=== PATIENT | female | born 1945 | race Caucasian/White ===

== ENCOUNTER → 2016-06-22 | Outpatient (CLI) | payer MEDICARE ==
[~2016-06-22] MED LIST: ACT/35 PO; ACT35 PO; ALBUAER2 INH; AMLO-114 PO; AMOX875T PO; ASPI325T4 PO; ATRIN INH; ATRIN6 NAE; BNTHP PO; CALC600T9 PO; FLNIN NAE; FLUT0.15 NAE; GLUCTAB7 PO; GUAI400T44 PO; IPRA0.03 NAE; MONT1TAB3 PO; MULT-506 PO; NXM/40 PO; PENT100C6 PO; RANITIDINE PO; SNG10 PO; TYLER650 PO; [UNRECOGNIZED DRUG - CODE] PO
[2016-06-22 15:44] LABS: MEAN CELL VOLUME 89.6 fL (80-100); MEAN CORPUSCULAR HEMOGLOBIN 30.5 pg (25-34); MEAN CORPUSCULAR HGB CONC 34.1 g/dl (32-36); MEAN PLATELET VOLUME 10.8 fL (7.4-10.4); PLATELET COUNT 269 K/uL (130-400); RED BLOOD COUNT 4.13 M/uL (4.2-5.4); WHITE BLOOD COUNT 8.34 K/uL (4.8-10.8)
[2016-06-22 16:45] LABS: ALKALINE PHOSPHATASE 56 U/L (45-117); ALT/SGPT 24 U/L (12-78); AST/SGOT 15 U/L (15-37); BLOOD UREA NITROGEN 13 mg/dl (7-18); BUN/CREATININE RATIO 20.1 (10-20); CARBON DIOXIDE 28 mmol/L (21-32); CHLORIDE 98 mmol/L (98-107); CREATININE 0.65 mg/dl (0.60-1.20); GLUCOSE 105 mg/dl (70-99); POTASSIUM 4.1 mmol/L (3.5-5.1); SODIUM 132 mmol/L (136-145)
[2016-06-22 16:46] LABS: URINE APPEARANCE CLEAR (CLEAR); URINE BILIRUBIN NEG (NEG); URINE COLOR YELLOW; URINE NITRITE NEG (NEG); URINE PH 6.5 (4.5-7.5); UROBILINOGEN NEG (NEG)
[2016-06-22 16:47] LABS: ALB/GLOB RATIO 1.2 (0.9-2); MANUAL MICROSCOPIC REQUIRED? NO; REVIEW REQ? NO
[2016-06-22 17:01] LABS: URINE PROTIEN/CREAT RATIO 0.1 (0-0.2); URINE TOTAL PROTEIN 5.3 mg/dl (0-11.9)
== END | disposition home or self-care (01) ==
LOC: C.LAB1850 14:50
PROVIDERS: ATTEND Internal Medicine Nephrology
DX: E87.1 Hypo-osmolality and hyponatremia (principal)

== ENCOUNTER → 2016-11-02 | Outpatient (CLI) | payer MEDICARE ==
[~2016-11-02] MED LIST changes: -ACT/35 PO; -AMOX875T PO; -ATRIN INH; -CALC600T9 PO; -FLUT0.15 NAE; -GLUCTAB7 PO; -GUAI400T44 PO; -IPRA0.03 NAE; -MONT1TAB3 PO; -RANITIDINE PO; -TYLER650 PO
[2016-11-02 16:38] LABS: MEAN CELL VOLUME 86.7 fL (80-100); MEAN CORPUSCULAR HEMOGLOBIN 29.5 pg (25-34); MEAN CORPUSCULAR HGB CONC 34.1 g/dl (32-36); PLATELET COUNT 278 K/uL (130-400); RED BLOOD COUNT 4.27 M/uL (4.2-5.4)
[2016-11-02 16:48] LABS: URINE APPEARANCE CLEAR (CLEAR); URINE BILIRUBIN NEG (NEG); URINE COLOR DK YELLOW; URINE EPITHELIAL CELL AUTO 20-30 /lpf (0-5); URINE NITRITE NEG (NEG); URINE SPECIFIC GRAVITY 1.017 (1.000-1.030); UROBILINOGEN NEG (NEG)
[2016-11-02 16:57] LABS: MANUAL MICROSCOPIC REQUIRED? NO; REVIEW REQ? NO
[2016-11-02 17:06] LABS: BLOOD UREA NITROGEN 16 mg/dl (7-18); CALCIUM 9.1 mg/dl (8.5-10.1); CARBON DIOXIDE 27 mmol/L (21-32); CHLORIDE 97 mmol/L (98-107); CREATININE 0.65 mg/dl (0.60-1.20); GLUCOSE 109 mg/dl (70-99); SODIUM 132 mmol/L (136-145)
--- NOTE | 2016-11-11 09:34 | CODING QUERY MEDICAL NECESSITY ---
CQSUPPORTING DIAGNOSIS NEEDED A supporting diagnosis is required for the test/procedure performed on this patient in order for us to be reimbursed by the patient's insurance. Please provide a supporting diagnosis for the following test/procedure listed below next to the test name along with your signature. *If there is no additional diagnosis for this patient that would support the following test/procedure please document that below next to the test/procedure. Test(s)/Procedure(s) that require a supporting diagnosis: DOS 11/02/16 VITAMIN D TEST Provider Signature: Date: Thank you Carey Jarvis Health Information Management Once completed, please kindly fax back to [phone] For questions please call [phone]
== END | disposition home or self-care (01) ==
LOC: C.LAB1850 15:04
PROVIDERS: ATTEND Internal Medicine Nephrology
DX: I10 Essential (primary) hypertension (principal); E87.1 Hypo-osmolality and hyponatremia

== ENCOUNTER → 2016-11-18 | Outpatient (CLI) | payer MEDICARE | END | disposition home or self-care (01) | LOC: C.PAPS 11:29 | PROVIDERS: ATTEND Family Medicine | DX: Z12.72 Encounter for screening for malignant neoplasm of vagina (principal) ==

== ENCOUNTER → 2016-11-19 | Outpatient (CLI) | payer MEDICARE ==
--- NOTE | 2016-11-19 13:40 | MAMMOGRAPHY REPORT ---
BILATERAL DIGITAL SCREENING MAMMOGRAM WITH CAD: 11/19/2016 CLINICAL HISTORY: Routine screening. Patient has no complaints. TECHNIQUE: Current study was also evaluated with a Computer Aided Detection (CAD) system. Bilateral CC and MLO views were obtained. COMPARISON: Comparison is made to exams dated: 09/12/2015 mammogram, 09/04/2014 mammogram, 09/03/2013 jenniffer mogram, 08/31/2012 mammogram, 08/31/2011 mammogram, and 08/27/2010 mammogram - [facility]. BREAST COMPOSITION: The tissue of both breasts is almost entirely fatty. FINDINGS: No suspicious masses, calcifications, or areas of architectural distortion are noted in ei ther breast. There has been no significant interval change compared to prior exams. IMPRESSION: ACR BI-RADS CATEGORY 1: NEGATIVE There is no mammographic evidence of malignancy. A 1 year screening mammogram is recommended. The pa tient will receive written notification of the results. Approximately 10% of breast cancers are not detected with mammography. A negative mammographic report should not delay biopsy if a clinically suggestive mass is present. Babita Hoover M.D. /:11/19/2016 12:12:18 Information And Referral Director: Lissett Lopez, [facility] letter sent: Normal 1/2 BI-RADS Code: ACR BI-RADS Category 1: Negative
== END | disposition home or self-care (01) ==
LOC: C.MAMM 11:33
PROVIDERS: ATTEND Family Medicine
DX: Z12.31 Encounter for screening mammogram for malignant neoplasm of breast (principal)

== ENCOUNTER → 2016-12-14 | Outpatient (CLI) | payer MEDICARE | END | disposition home or self-care (01) | LOC: C.MAMM 13:27 | PROVIDERS: ATTEND Family Medicine | DX: M85.852 Other specified disorders of bone density and structure, left thigh (principal); M85.851 Other specified disorders of bone density and structure, right thigh; M85.832 Other specified disorders of bone density and structure, left forearm ==

== ENCOUNTER → 2017-02-10 | Outpatient (CLI) | payer MEDICARE ==
[~2017-02-10] MED LIST changes: +ACT/35 PO; -ACT35 PO; -ALBUAER2 INH; +AMOX875T PO; +ATRIN INH; -ATRIN6 NAE; -BNTHP PO; +CALC600T9 PO; -FLNIN NAE; +FLUT0.15 NAE; +GLUCTAB7 PO; +GUAI400T44 PO; +IPRA0.03 NAE; +MONT1TAB3 PO; +RANITIDINE PO; -SNG10 PO; +TYLER650 PO; -[UNRECOGNIZED DRUG - CODE] PO
[2017-02-10 13:38] LABS: BASO ABS # 0.07 K/uL (0-0.2); COMPLETE YES; EOS % 2.6 %; HEMATOCRIT 37.5 % (37-47); IG% 0.3 %; LYMPH ABS # 2.42 K/uL (1.2-3.4); MEAN CELL VOLUME 87.4 fL (80-100); MEAN CORPUSCULAR HEMOGLOBIN 29.4 pg (25-34); MEAN CORPUSCULAR HGB CONC 33.6 g/dl (32-36); MONO % 13.3 %; NEUT % 47.8 %; PLATELET COUNT 276 K/uL (130-400); RED BLOOD COUNT 4.29 M/uL (4.2-5.4); WHITE BLOOD COUNT 6.92 K/uL (4.8-10.8)
[2017-02-10 13:39] LABS: PROTHROMBIN TIME (PATIENT) 10.4 SECONDS (9.0-12.0)
== END | disposition home or self-care (01) ==
LOC: C.LABSPEC 13:07
PROVIDERS: ATTEND Family Medicine
DX: Z01.812 Encounter for preprocedural laboratory examination (principal); R23.3 Spontaneous ecchymoses

== ENCOUNTER → 2017-02-15 | Day surgery (SDC) | payer MEDICARE ==
[2017-01-17 11:08] VITALS: Ht 165.1 cm; Wt 68.6 kg
[~2017-02-15] VITALS: Ht 165.1 cm; Wt 68.6 kg
[~2017-02-15] MED LIST changes: +500ML BSS 0.3ML EPI 1:1000PF IRRIG ONE; +ACETAMINOPHEN 325 MG TAB PO PRN; +AMVISC PLUS 0.8ML SYRINGE INT OCU ONE; +ATROPINE SULFATE 0.1 MG/ML 5ML SYR IV PRN; +BSS FLUSH ONE; +EpHEDrine SULFATE INJ 50 MG/ML AMP IV PRN; +EpINEphrine INJ 1MG/ML AMP 1 MG/ML AMP ONE; +LACTATED RINGER'S 1000ML 500 ML IV SCH; +LIDOCAINE 3.5% OPH GEL PER APPLICATION CHARGE ONE; +LIDOCAINE HCL 1% MPF 2 ML VIAL ONE; +MIDAZOLAM HCL 1 MG/ML 2ML VIAL ONE; +OCUCOAT 1 ML SOLN IO ONE; +PHENYLEPHRINE HCL 10% OP SOLN PER DROP CHARGE OPR SCH; +POVIDONE-IODINE OP SOLN 30 ML BTL ONE; +PROPARACAINE 0.5% OP SOLN PER DROP CHARGE OPR SCH; +TOBRAMYCIN/DEXAMETHASONE OPH OINT PER APPLN CHARGE ONE
[2017-02-15] MEDS: PHENYLEPHRINE HCL 2.5% OP SOLN PER DROP CHARGE OPR SCH ×2 (09:25→09:30)
[2017-02-15] MEDS: TROPICAMIDE 1% OP SOLN PER DROP CHARGE OPR SCH ×2 (09:26→09:31)
[2017-02-15] MEDS: CYCLOPENTOLATE HCL 1% OP SOLN PER DROP CHARGE OPR SCH ×2 (09:27→09:32)
[2017-02-15] MEDS: KETOROLAC 0.5% OP SOLN PER DROP CHARGE OPR SCH ×2 (09:28→09:33)
[2017-02-15] MEDS: GATIFLOXACIN OP SOLN PER DROP CHARGE OPR SCH ×2 (09:29→09:41)
--- NOTE | 2017-02-15 10:04 | History & Physical Bridge - SC ---
H&P Re-Evaluation Bridge Note: I have examined the patient, reviewed the History & Physical and in the interval since the performance of the History & Physical I have noted the following changes of clinical significance: Diagnosis: Right Cataract Procedure: Right Cataract Removal with Lens Implant No changes noted
--- NOTE | 2017-02-15 10:38 | Discharge Instructions-SurgCtr ---
Discharge Instructions Date of Service Feb 15, 2017. Visit Reason for Visit: Right Cataract Discharge Discharge Diagnosis / Problem: cataract Discharge Goals Goal(s): Improve function Activity Recommendations Activity Limitations: per Instructions/Follow-up section Anesthesia . Post Anesthesia Instructions: If you have had General Anesthesia or IV Sedation: * Do not drive today. * Resume driving when surgeon permits. * Do not make important decisions or sign legal documents today. * Call surgeon for: 1. Temperature elevations greater than 101 degrees F. 2. Uncontrollable pain. 3. Excessive bleeding. 4. Persistent nausea and vomiting. 5. Medication intolerance (nausea, vomiting or rash). * For nausea and vomiting use only clear liquids such as: tea, soda, bouillon until nausea subsides, then gradually increase diet as tolerated. * If you have any concerns or questions, call your surgeon's office. If physician is unavailable and it is an emergency, call 911 or go to the nearest emergency room. . Diet Recommendations Home Diet: resume previous diet Procedures Procedures Performed: Right Cataract Phacoemulsification With Intraocular Lens Implant Pending Studies Studies pending at discharge: no Medical Emergencies . Who to Call and When: Medical Emergencies: If at any time you feel your situation is an emergency, please call 911 immediately. . Non-Emergent Contact Non-Emergency issues call your: [employer] . . "Provider Documentation" section prepared by Alex Ponce. .
--- NOTE | 2017-02-15 10:39 | [facility] Operative Report ---
Operative Report Date of Service Feb 15, 2017. Operative Report 1. PREOPERATIVE DIAGNOSIS: Cataract of the right eye. 2. POSTOPERATIVE DIAGNOSIS: Same. 3. PROCEDURE: Phacoemulsification with intraocular lens implantation of the right eye. SURGEON: Dr. Alex Ponce. ANESTHESIA: Topical Lidocaine gel, 1% Non- Preserved intracameral Lidocaine, and monitored intravenous sedation. INDICATIONS FOR THE PROCEDURE: The patient is a 71 - year-old female with a history of cataract of the right eye causing significant visual impairment. The details of the proposed procedure were explained to the patient who asked appropriate questions and following discussion of all risks, benefits and alternatives agreed to have the procedure done. 4. OPERATION AND FINDINGS: DESCRIPTION OF PROCEDURE: After informed consent was obtained, the patient was brought to the Operating Room at the [facility]. The patient was placed in a supine position and then the right eye was prepped and draped in the usual sterile fashion for intraocular surgery. A drop of topical Lidocaine gel was placed in the operative eye. A wire lid speculum was then placed in the fornices. A corneal paracentesis was then created temporally. The Non-Preserved Lidocaine was then instilled into the anterior chamber. The anterior chamber was then pressurized with viscoelastic. A 2.0 mm clear corneal incision was then created temporally. A cystotome was inserted into the anterior chamber and used to create a tear in the anterior lens capsule. This capsular tear was then used to create a small flap and the flap was dragged in a counterclockwise direction in order to create a continuous curvilinear capsulorrhexis. Hydrodissection was accomplished with balanced salt solution. Phacoemulsification of the lens nucleus was then performed in a standard [id number]-rve-[id number] technique. The phaco time was 16 seconds with an average power of 14 %. The remaining cortical material was removed using irrigation aspiration. The capsular bag was then filled with viscoelastic. A Florentin SN60WF +21.0 diopters lens was then loaded into the injector and injected into the capsular bag. The remaining viscoelastic was removed with the irrigation aspiration handpiece. The wound was hydrated and then checked and found to be watertight. The intraocular pressure was checked and found to be adequate. The wire lid speculum was removed and the patient's face was cleaned and dried. TobraDex ointment was placed in the inferior fornix. The patient was discharged to the Recovery Room having tolerated the procedure well. There were no complications. The patient will be seen tomorrow in the office for follow-up. I attest to the content of the Intraoperative Record and any orders documented therein. Any exceptions are noted below.
[2017-02-15 10:41] VITALS: TEMP 36.7
--- NOTE | 2017-02-15 10:57 | Anesthesia Progress Nt - [facility] ---
Anesthesia Post Op Note Date & Time Feb 15, 2017 at 10:57 Vital Signs Pain Intensity: 0 Vital Signs Past 12 Hours Date Time Temp Pulse Resp B/P (MAP) Pulse Ox O2 Delivery O2 Flow Rate FiO2 02/15/17 10:41 36.7 79 16 127/79 (95) 97 Room Air 02/15/17 09:19 36.8 81 16 108/72 (84) 97 Room Air Notes Mental Status: alert / awake / arousable, participated in evaluation Pt Amnestic to Procedure: Yes Nausea / Vomiting: adequately controlled Pain: adequately controlled Airway Patency, RR, SpO2: stable & adequate BP & HR: stable & adequate Hydration State: stable & adequate Anesthetic Complications: no major complications apparent
[2017-02-15 11:07] VITALS: BP 121/76; PULSE 79; O2SAT 99
== END | disposition home or self-care (01) ==
LOC: X.SURG 09:00
PROVIDERS: ATTEND Ophthalmology
DX: H26.9 Unspecified cataract (principal); J45.909 Unspecified asthma, uncomplicated; I10 Essential (primary) hypertension; D68.51 Activated protein C resistance; N30.10 Interstitial cystitis (chronic) without hematuria; M81.0 Age-related osteoporosis without current pathological fracture; K58.9 Irritable bowel syndrome, unspecified; Z86.718 Personal history of other venous thrombosis and embolism

== ENCOUNTER → 2017-03-08 | Day surgery (SDC) | payer MEDICARE ==
[2017-02-23 15:04] VITALS: Ht 165.1 cm; Wt 68.6 kg
[~2017-03-08] VITALS: Ht 165.1 cm; Wt 68.6 kg
[~2017-03-08] MED LIST changes: -AMLO-114 PO; +AMLO10TA3 PO; -AMOX875T PO; +ASTN; -OCUCOAT 1 ML SOLN IO ONE; +ONDANSETRON INJ 2 MG/ML 2 ML VIAL IV PRN; -PHENYLEPHRINE HCL 10% OP SOLN PER DROP CHARGE OPR SCH; +PROPARACAINE 0.5% OP SOLN PER DROP CHARGE OPL SCH; -PROPARACAINE 0.5% OP SOLN PER DROP CHARGE OPR SCH; +RANI150T85 PO; -RANITIDINE PO
[2017-03-08] MEDS: PHENYLEPHRINE HCL 2.5% OP SOLN PER DROP CHARGE OPL SCH ×2 (08:45→08:50)
[2017-03-08] MEDS: TROPICAMIDE 1% OP SOLN PER DROP CHARGE OPL SCH ×2 (08:46→08:51)
[2017-03-08] MEDS: CYCLOPENTOLATE HCL 1% OP SOLN PER DROP CHARGE OPL SCH ×2 (08:47→08:52)
[2017-03-08] MEDS: KETOROLAC 0.5% OP SOLN PER DROP CHARGE OPL SCH ×2 (08:48→08:53)
[2017-03-08] MEDS: GATIFLOXACIN OP SOLN PER DROP CHARGE OPL SCH ×2 (08:49→09:01)
--- NOTE | 2017-03-08 09:17 | History & Physical Bridge - SC ---
H&P Re-Evaluation Bridge Note: I have examined the patient, reviewed the History & Physical and in the interval since the performance of the History & Physical I have noted the following changes of clinical significance Diagnosis: Left Cataract Procedure: Left Cataract Removal with Lens Implant : No changes noted
--- NOTE | 2017-03-08 09:49 | Discharge Instructions-SurgCtr ---
Discharge Instructions Date of Service Mar 08, 2017. Visit Reason for Visit: Cataract Left Eye Discharge Discharge Diagnosis / Problem: cataract Discharge Goals Goal(s): Improve function Activity Recommendations Activity Limitations: per Instructions/Follow-up section Anesthesia . Post Anesthesia Instructions: If you have had General Anesthesia or IV Sedation: * Do not drive today. * Resume driving when surgeon permits. * Do not make important decisions or sign legal documents today. * Call surgeon for: 1. Temperature elevations greater than 101 degrees F. 2. Uncontrollable pain. 3. Excessive bleeding. 4. Persistent nausea and vomiting. 5. Medication intolerance (nausea, vomiting or rash). * For nausea and vomiting use only clear liquids such as: tea, soda, bouillon until nausea subsides, then gradually increase diet as tolerated. * If you have any concerns or questions, call your surgeon's office. If physician is unavailable and it is an emergency, call 911 or go to the nearest emergency room. . Diet Recommendations Home Diet: resume previous diet Procedures Procedures Performed: Left Cataract Phacoemulsification With Intraocular Lens Implant Pending Studies Studies pending at discharge: no Medical Emergencies . Who to Call and When: Medical Emergencies: If at any time you feel your situation is an emergency, please call 911 immediately. . 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 . "Provider Documentation" section prepared by Alex Ponce. .
--- NOTE | 2017-03-08 09:50 | [facility] Operative Report ---
Operative Report Date of Service Mar 08, 2017. Operative Report 1. PREOPERATIVE DIAGNOSIS: Cataract of the left eye. 2. POSTOPERATIVE DIAGNOSIS: Same. 3. PROCEDURE: Phacoemulsification with intraocular lens implantation of the left eye. SURGEON: Dr. Alex Ponce. ANESTHESIA: Topical Lidocaine gel, 1% Non- Preserved intracameral Lidocaine, and monitored intravenous sedation. INDICATIONS FOR THE PROCEDURE: The patient is a 71 - year-old female with a history of cataract of the left eye causing significant visual impairment. The details of the proposed procedure were explained to the patient who asked appropriate questions and following discussion of all risks, benefits and alternatives agreed to have the procedure done. 4. OPERATION AND FINDINGS: DESCRIPTION OF PROCEDURE: After informed consent was obtained, the patient was brought to the Operating Room at the [facility]. The patient was placed in a supine position and then the left eye was prepped and draped in the usual sterile fashion for intraocular surgery. A drop of topical Lidocaine gel was placed in the operative eye. A wire lid speculum was then placed in the fornices. A corneal paracentesis was then created temporally. The Non-Preserved Lidocaine was then instilled into the anterior chamber. The anterior chamber was then pressurized with viscoelastic. A 2.0 mm clear corneal incision was then created temporally. A cystotome was inserted into the anterior chamber and used to create a tear in the anterior lens capsule. This capsular tear was then used to create a small flap and the flap was dragged in a counterclockwise direction in order to create a continuous curvilinear capsulorrhexis. Hydrodissection was accomplished with balanced salt solution. Phacoemulsification of the lens nucleus was then performed in a standard drccok-uwv-zozlamo technique. The phaco time was 19 seconds with an average power of 12 %. The remaining cortical material was removed using irrigation aspiration. The capsular bag was then filled with viscoelastic. A Florentin SN60WF +21.0 diopters lens was then loaded into the injector and injected into the capsular bag. The remaining viscoelastic was removed with the irrigation aspiration handpiece. The wound was hydrated and then checked and found to be watertight. The intraocular pressure was checked and found to be adequate. The wire lid speculum was removed and the patient's face was cleaned and dried. TobraDex ointment was placed in the inferior fornix. The patient was discharged to the Recovery Room having tolerated the procedure well. There were no complications. The patient will be seen tomorrow in the office for follow-up. I attest to the content of the Intraoperative Record and any orders documented therein. Any exceptions are noted below.
[2017-03-08 09:51] VITALS: TEMP 36.4
[2017-03-08 10:11] VITALS: BP 113/72; PULSE 80; O2SAT 98
--- NOTE | 2017-03-08 10:17 | Anesthesia Progress Nt - [facility] ---
Anesthesia Post Op Note Date & Time Mar 08, 2017 at 10:17 Vital Signs Pain Intensity: 0 Vital Signs Past 12 Hours Date Time Temp Pulse Resp B/P (MAP) Pulse Ox O2 Delivery O2 Flow Rate FiO2 03/08/17 10:11 80 16 113/72 (86) 98 Room Air 03/08/17 09:51 36.4 78 16 132/80 (97) 100 Room Air 03/08/17 08:17 36.9 72 16 119/81 (94) 97 Room Air Notes Mental Status: alert / awake / arousable, participated in evaluation Pt Amnestic to Procedure: Yes Nausea / Vomiting: adequately controlled Pain: adequately controlled Airway Patency, RR, SpO2: stable & adequate BP & HR: stable & adequate Hydration State: stable & adequate Anesthetic Complications: no major complications apparent
== END | disposition home or self-care (01) ==
LOC: X.SURG 07:57
PROVIDERS: ATTEND Ophthalmology
DX: H26.9 Unspecified cataract (principal); J45.909 Unspecified asthma, uncomplicated; D68.51 Activated protein C resistance; Z86.718 Personal history of other venous thrombosis and embolism; N30.10 Interstitial cystitis (chronic) without hematuria; Z86.73 Personal history of transient ischemic attack (TIA), and cerebral infarction without residual deficits; K58.9 Irritable bowel syndrome, unspecified; Z85.820 Personal history of malignant melanoma of skin; M81.0 Age-related osteoporosis without current pathological fracture; E87.1 Hypo-osmolality and hyponatremia; Z79.82 Long term (current) use of aspirin; Z79.899 Other long term (current) drug therapy; K21.9 Gastro-esophageal reflux disease without esophagitis

== ENCOUNTER → 2017-03-15 | Outpatient (CLI) | payer MEDICARE ==
[~2017-03-15] MED LIST changes: -500ML BSS 0.3ML EPI 1:1000PF IRRIG ONE; -ACETAMINOPHEN 325 MG TAB PO PRN; +AMLO-114 PO; -AMLO10TA3 PO; -AMVISC PLUS 0.8ML SYRINGE INT OCU ONE; -ATROPINE SULFATE 0.1 MG/ML 5ML SYR IV PRN; -BSS FLUSH ONE; -EpHEDrine SULFATE INJ 50 MG/ML AMP IV PRN; -EpINEphrine INJ 1MG/ML AMP 1 MG/ML AMP ONE; -LACTATED RINGER'S 1000ML 500 ML IV SCH; -LIDOCAINE 3.5% OPH GEL PER APPLICATION CHARGE ONE; -LIDOCAINE HCL 1% MPF 2 ML VIAL ONE; -MIDAZOLAM HCL 1 MG/ML 2ML VIAL ONE; -ONDANSETRON INJ 2 MG/ML 2 ML VIAL IV PRN; -POVIDONE-IODINE OP SOLN 30 ML BTL ONE; -PROPARACAINE 0.5% OP SOLN PER DROP CHARGE OPL SCH; -RANI150T85 PO; -TOBRAMYCIN/DEXAMETHASONE OPH OINT PER APPLN CHARGE ONE; +ZNTT/150 PO
[2017-03-15 17:12] LABS: ALBUMIN 3.8 gm/dl (3.4-5.0); BLOOD UREA NITROGEN 13 mg/dl (7-18); CALCIUM 8.9 mg/dl (8.5-10.1); CARBON DIOXIDE 27 mmol/L (21-32); CREATININE 0.78 mg/dl (0.60-1.20); GLUCOSE 108 mg/dl (70-99); POTASSIUM 4.4 mmol/L (3.5-5.1); SODIUM 129 mmol/L (136-145)
[2017-03-15 17:13] LABS: PHOSPHORUS 3.8 mg/dl (2.5-4.9)
[2017-03-15 17:19] LABS: HEMATOCRIT 37.8 % (37-47); HEMOGLOBIN 12.9 g/dL (12.0-16.0); MEAN CELL VOLUME 88.3 fL (80-100); MEAN CORPUSCULAR HEMOGLOBIN 30.1 pg (25-34); MEAN CORPUSCULAR HGB CONC 34.1 g/dl (32-36); MEAN PLATELET VOLUME 11.4 fL (7.4-10.4); PLATELET COUNT 296 K/uL (130-400); RED CELL DISTRIBUTION WIDTH CV 13.3 % (11.5-14.5); RED CELL DISTRIBUTION WIDTH SD 42.8 fL (36.4-46.3); WHITE BLOOD COUNT 8.49 K/uL (4.8-10.8)
== END | disposition home or self-care (01) ==
LOC: C.LAB1850 15:07
PROVIDERS: ATTEND Internal Medicine Nephrology
DX: I10 Essential (primary) hypertension (principal); E87.1 Hypo-osmolality and hyponatremia

== ENCOUNTER → 2017-03-23 | Outpatient (CLI) | payer MEDICARE ==
--- NOTE | 2017-03-23 14:36 | DIAGNOSTIC IMAGING REPORT ---
L VENOUS DOPP LOWER EXT UNILAT HISTORY: 71 years-old Female PAIN/ SWELLING LEFT LEG R/O DVT acute left lower extremity pain and swelling COMPARISON: None available TECHNIQUE: Multiple real-time sonographic images of the left lower extremity deep venous structures were obtained assessing grayscale appearance, color and spectral flow. FINDINGS: There is normal flow, phasicity, compressibility and augmentation within the left lower extremity deep venous structures. IMPRESSION: No sonographic evidence of deep venous thrombosis. The above report was generated using voice recognition software. It may contain grammatical, syntax or spelling errors. Electronically signed by: Cabrera Benitez M.D. 03/23/2017 2:35 PM Dictated Date/Time: 03/23/2017 2:34 PM
== END | disposition home or self-care (01) ==
LOC: C.ULTRBC 14:15
PROVIDERS: ATTEND Family Medicine
DX: M79.605 Pain in left leg (principal)

== ENCOUNTER → 2017-03-24 | Outpatient (CLI) | payer MEDICARE ==
--- NOTE | 2017-03-24 14:08 | DIAGNOSTIC IMAGING REPORT ---
L FOOT MIN 3 VIEWS ROUTINE HISTORY: 71 years-old Female LEFT FOOT PAIN acute left-sided foot pain. COMPARISON: None available TECHNIQUE: 3 views of the left foot FINDINGS: There is an 8 x 5 mm ovoid lucent lesion with thin sclerotic margins involving the distal aspect of the first distal phalanx along the medial margin lesion appears to contain internal chondroid matrix ossifications. Mild associated endosteal scalloping. No acute fracture or subluxation. Mild degenerative changes are seen throughout the interphalangeal joints and also within the first MTP joint. The bones appear mildly demineralized. Mild spurring about the plantar calcaneus. Mild soft tissue swelling about the ankle. IMPRESSION: 1. Mild soft tissue swelling about the ankle without acute fracture or subluxation. 2. Mild degenerative changes about the foot as above. 3. 8 x 5 mm ovoid nonaggressive appearing lucent lesion with thin sclerotic margins involving the distal aspect of the first distal phalanx suggests an enchondroma. The above report was generated using voice recognition software. It may contain grammatical, syntax or spelling errors. Electronically signed by: Cabrera Benitez M.D. 03/24/2017 2:06 PM Dictated Date/Time: 03/24/2017 1:57 PM
== END | disposition home or self-care (01) ==
LOC: C.RAD1850 13:41
PROVIDERS: ATTEND Family Medicine
DX: M79.672 Pain in left foot (principal); M89.9 Disorder of bone, unspecified

== ENCOUNTER → 2017-04-21 | Outpatient (CLI) | payer MEDICARE ==
[~2017-04-21] MED LIST changes: +RANI150T85 PO; -ZNTT/150 PO
[2017-04-21 16:01] LABS: ALBUMIN 3.8 gm/dl (3.4-5.0); BLOOD UREA NITROGEN 14 mg/dl (7-18); CARBON DIOXIDE 27 mmol/L (21-32); GLUCOSE 112 mg/dl (70-99); POTASSIUM 4.2 mmol/L (3.5-5.1); SODIUM 131 mmol/L (136-145)
[2017-04-21 16:02] LABS: PHOSPHORUS 3.8 mg/dl (2.5-4.9)
== END | disposition home or self-care (01) ==
LOC: C.LAB1850 14:54
PROVIDERS: ATTEND Internal Medicine Nephrology
DX: I10 Essential (primary) hypertension (principal); E87.1 Hypo-osmolality and hyponatremia; M72.2 Plantar fascial fibromatosis

== ENCOUNTER 2019-05-10 18:29 | Observation (INO) ==
--- NOTE | 2019-05-10 18:57 | Emergency Department Note ---
Entered by Melva Herr acting as a scribe for Richard Cotton DO History of Present Illness General Chief complaint: Weakness Stated complaint: WEAKNESS, PT SAYS SHE CAN'T STAND UP Time Seen by Provider: 05/10/19 18:38 Source: patient and family () Limitations: no limitations History of Present Illness Onset (ago): hour(s) 1 Location: head, upper extremity and lower extremity Pain Consistency: + constant Quality: + other (worsening weakness) Associated symptoms: + other (back pain) The patient is a 73 year old female who presents to the Emergency Room with complaints of constant weakness that worsened about 1 hour ago. She describes the weakness to be "all over," including her neck, head, and extremities. The patient's , at bedside, states that the patient was seen at this ER earlier today for weakness that began last night and a fall that occurred this morning. Her states that she was discharged around 16:00. He notes that they stopped for fast food after discharge, but the patient was unable to get out of the car when they arrived at home. He states that the patient had a shingles shot yesterday morning, and she was complaining of pain in the upper extremity where the shot was given last night. The patient complains of back pain that began after the fall, stating that she hit her back on the edge of the bathtub. Home Medications Home Medications Medication Instructions Recorded Confirmed Type acetaminophen 650 mg 650 mg PO Q12H PRN 05/23/18 05/10/19 History tablet,extended release aspirin 325 mg tablet 325 mg PO QAM 05/23/18 05/10/19 History azelastine-fluticasone 137 mcg-50 1 sprays INTNAS BID 05/23/18 05/10/19 History mcg/spray nasal spray calcium carbonate 600 mg (1,500 1 cap PO QAM cap 05/23/18 05/10/19 History mg)-vitamin D3 2,500 unit capsule esomeprazole magnesium 40 mg 40 mg PO QAM 05/23/18 05/10/19 History capsule,delayed release glucosamine 750 gl-jtuarvyyj-cfh 1 tab PO QAM tab 05/23/18 05/10/19 History no.7 644 mg-vit E-vetxpt-gptbf tablet ipratropium bromide 0.03 % nasal 2 sprays INTNAS BID 05/23/18 05/10/19 History spray montelukast 10 mg tablet 10 mg PO QPM 05/23/18 05/10/19 History multivitamin 1 tab PO QAM 05/23/18 05/10/19 History amlodipine 5 mg tablet 5 mg PO BID #180 tab 01/04/19 05/10/19 Rx sodium chloride 1 gram tablet 1,000 mg PO TID tab 01/04/19 05/10/19 History Pepto-Bismol 2 tab PO DIRECTED PRN 01/26/19 05/10/19 History atorvastatin 10 mg PO 3XWK 01/26/19 05/10/19 History vitamin E 400 unit PO QAM 01/26/19 05/10/19 History calcium carbonate [Tums Ultra] 400 mg PO DIRECTED PRN 05/10/19 05/10/19 History Allergies Allergy/AdvReac Type Severity Reaction Status Date / Time indomethacin Allergy Intermediate "FEEL Verified 05/10/19 15:41 STRANGE AND OUT OF IT" adhesive Allergy Mild RASH WITH Verified 05/10/19 15:41 EXTENDED USE bacitracin Allergy Mild RASH Verified 05/10/19 15:41 latex Allergy Mild RASH WITH Verified 05/10/19 15:41 LONGER EXPOSURE neomycin Allergy Mild RASH Verified 05/10/19 15:41 polymyxin B Allergy Mild RASH Verified 05/10/19 15:41 Sulfa (Sulfonamide Allergy Mild RASH Verified 05/10/19 15:41 Antibiotics) Past Med/Surg History Medical History Asthma NO CURRENT INHALER Chronic pain of left knee (Chronic) DVT (deep venous thrombosis) LEFT LEG (WAS TAKING WARFARIN 2011) Factor 5 Leiden mutation, heterozygous GERD (gastroesophageal reflux disease) History of colitis Hypertension (Chronic) Hyponatremia (Chronic) Migraine Osteoarthritis Spinal stenosis Stroke 02/08/2012 (NO CURRENT PROBLEMS) Surgical History History of bilateral tubal ligation History of cataract surgery RT/LEFT History of colonoscopy History of esophagogastroduodenoscopy (EGD) History of surgery on arm RT ARM History of tooth extraction S/P wrist surgery LEFT Family History Mother Family history of diabetes mellitus Aunt Family hx of colon cancer Social History Preferred Language: [place] Communication Ability: Effective Visual Impairment: No Limitations Hearing Ability: Normal Medicare Biller Required: No Beliefs That Will Affect Care: None marital status: Current Living Situation: Spouse current occupational status: retired Feels Safe at Home: Yes Smoking Status: Never smoker Number of Years Since Quit: 50 ; Second Hand Exposure: No ; Hx Alcohol Use: No Hx Substance Use: No Review of Systems See HPI for pertinent positives & negatives. and A total of 10 systems reviewed and were otherwise negative Physical Exam Vital Signs Vital Signs - 24 hr 05/10/19 18:35 05/10/19 19:06 Temperature 36.4 C L Temperature Source Oral Pulse Rate 101 H Respiratory Rate 18 Blood Pressure 137/69 Blood Pressure Mean 91 Blood Pressure Position Sitting Pulse Oximetry 96 Oxygen Delivery Method Room Air Room Air Sepsis Recent Fever Within 48 Hours No Sepsis New/Unexplained Change in Mental Status No Sepsis Action Taken by Nursing No Action Required VITAL SIGNS: were reviewed as above. GENERAL:Non-toxic in appearance. SKIN: Warm dry and pink. HEAD: Normocephalic and atraumatic. OROPHARYNX: Is clear and moist NECK: Supple without lymphadenopathy or meningismus. LUNGS: clear. HEART: Regular rate and rhythm. ABDOMEN: Soft and nontender. EXTREMITIES: Warm and well perfused. NEUROLOGICALLY: Awake alert and oriented without focal deficit. Cranial nerves 2-12 are intact. There is no pronator drift. Cerebellar testing is within normal limits. There is no nystagmus. There is no facial droop. Speech is clear. Vision is grossly normal. Normal reflexes in the lower extremities. Normal patellar reflexes. MUSCULOSKELETAL: Good muscle tone. No evidence of trauma. Course Course 1839: The patient was evaluated in room A10. A complete history and physical exam was performed. 1853: I spoke with case management about the patient's case. 1913: I spoke with Dr. Dumont, [facility] hospitalist, about the patients case. He will further evaluate the patient. Medical Decision Making Differential Diagnosis Differential Diagnosis includes but is not limited to dehydration, stroke, anemia, hypoglycemia, hyponatremia, hypernatremia, urinary tract infection, pneumonia, bronchitis, sepsis, gastroenteritis, additional abdominal pathology, metabolic abnormalities and infections. Medical Records Attestation: I reviewed the patient's medical records. Home Medications Current Medication List: was personally reviewed by me Blood Pressure Blood Pressure Findings: Elevated blood pressure Blood Pressure Disposition: further management by hospitalist MDM Narrative This is a 73-year-old female who presents to the ED with a chief complaint of generalized weakness. The patient had a fall earlier today. She was evaluated in the emergency department today and discharged at 4 PM, 3 hours ago. The patient presents with her . He states that when he got her home, she was unable to stand or get out of the car. For this reason they brought her back. She has had a decreased appetite today. She received a shingles immunization yesterday. The patient denies any complaints other than some back pain related to falling earlier today. She did have some x-rays of the lumbar region as well as coccyx and a CT scan of the brain. She also had blood work earlier today and a urinalysis and flu swab. Nothing abnormal other than a slight leukocytosis. The patient's vital signs today reveal heart rate of 101. Other vitals are normal. The patient's physical exam was unremarkable. She did have some tenderness to the lumbar region. She has what appears to be normal strength in her upper and lower extremities and she has good reflexes in the lower extremities in the patellar regions. The does not feel comfortable taking the patient home. She will need observation here overnight and possibly physical therapy evaluation as well. The patient is in no distress. I did review the test results from earlier today with Dr. Graves who. He will see the patient for observation. Impression & Plan Generalized weakness, Fall Discharge Plan Visit Data Chief Complaint: Weakness Stated Complaint: WEAKNESS, PT SAYS SHE CAN'T STAND UP ED Provider: Richard Cotton Discharge Problem: Generalized weakness, Fall Patient Disposition: Being Evaluated by Hospitalist Forms Stand Alone Forms: My [facility] [employer] Prescriptions Prescriptions: No Action acetaminophen [Tylenol Arthritis Pain] 650 mg tablet extended release 650 mg PO Q12H PRN (Reason: Pain) RF: 0 Dymista 137-50 mcg/spray spray,non-aerosol 1 sprays INTNAS BID RF: 0 aspirin 325 mg tablet 325 mg PO QAM RF: 0 esomeprazole magnesium [Nexium] 40 mg capsule,delayed release(DR/EC) 40 mg PO QAM RF: 0 xuhb-olgehr-qgi#5-P-sgdh-boron [id number] mg tablet 1 tab PO QAM RF: 0 ipratropium bromide 0.03 % spray,non-aerosol 2 sprays INTNAS BID RF: 0 montelukast [Singulair] 10 mg tablet 10 mg PO QPM RF: 0 multivitamin tablet 1 tab PO QAM RF: 0 calcium carbonate-vitamin D3 600 mg (1,500 mg)-2,500 unit capsule 1 cap PO QAM RF: 0 sodium chloride 1 gram tablet 1,000 mg PO TID RF: 0 amlodipine 5 mg tablet 5 mg PO BID Qty: 180 RF: 3 calcium carbonate [Tums Ultra] 400 mg calcium (1,000 mg) Tablet,Chewable 400 mg PO DIRECTED PRN (Reason: Gi Upset) RF: 0 atorvastatin 10 mg Tablet 10 mg PO 3XWK RF: 0 vitamin E 400 unit Capsule 400 unit PO QAM RF: 0 Pepto-Bismol 262 mg Tablet 2 tab PO DIRECTED PRN (Reason: Indigestion) RF: 0 Referrals Referrals: Magda Taylor DO [Primary Care Provider] - Discharge Problem: Fall Qualifiers: Encounter type: initial encounter Qualified Code(s): W19.XXXA - Unspecified fall, initial encounter The scribe's documentation has been prepared under my direction and personally reviewed by me in its entirety. I confirm that the note above accurately reflects all work, treatment, procedures, and medical decision making performed by me.
[2019-05-10] MEDS ORDERED: ONDANSETRON INJ 2 MG/ML 2 ML VIAL IV PRN (20:52)
[2019-05-10] MEDS ORDERED: POLYETHYLENE (MIRALAX) 17 GM PACK PO PRN (20:52)
[2019-05-10] MEDS: SODIUM CHLORIDE 0.9% 1000ML 1,000 ML IV SCH (21:26)
[2019-05-10] MEDS: SODIUM CHLORIDE 1 GM TABLET PO SCH (21:27)
[2019-05-10] MEDS: AMLODIPINE BESYLATE 5 MG TAB PO SCH (21:28)
[2019-05-10] MEDS: MONTELUKAST SODIUM 10 MG TABLET PO SCH (21:28)
[2019-05-10] MEDS ORDERED: BISMUTH SUBSALICYLATE 262 MG CHEW PO PRN (21:48)
[2019-05-10] MEDS ORDERED: CALCIUM CARBONATE 500 MG CHEWABLE TAB PO PRN (21:50)
--- NOTE | 2019-05-10 22:01 | History and Physical Report ---
DATE OF ADMISSION: 05/10/2019 CHIEF COMPLAINT: Generalized weakness and fall. HISTORY OF PRESENT ILLNESS: This is a 73-year-old female with past medical history significant for chronic hyponatremia, on salt tablets; mild intermittent asthma; hypertension; irritable bowel syndrome; GERD; chronic interstitial cystitis; senile osteoporosis; generalized osteoarthritis; spondylosis of lumbar region; factor V Leiden mutation heterozygous; history of CVA; history of DVT of lower extremity, no longer on anticoagulation, who presents with generalized weakness. The patient lives with her ,. Until yesterday she was fine. Yesterday, she had a shingles shot in the right arm at [facility] and she was fine at that time, but in the evening when she went to shower, she was feeling generalized weakness and she just wanted to go to bed and sleep. Her helped her to go to bed. In the morning, generally she wakes up around 9:00 a.m., but today she could not wake up. Her went and tried to wake her up and she was feeling weak and tired and had some back pain and she did not eat her breakfast. She she went to bathroom and sat on the commode. Her heard her fall down. She did not hit her head. She had no loss of consciousness. She was just getting up from the commode and felt generalized weak and fell down. Her could not get her up for half an hour and he called the EMS and they helped her to get to the bed and they decided to come to the ER. In the ER, CT of head was ok, mild leukocytosis,. Electrolytes and LFTs were unremarkable. Troponin was negative. Flu was negative and she was discharged back home. says they went home in the car and they stopped at [facility] and had something to eat and then when they went to home, the patient was not able to get out from the car,and he brought the patient back to the hospital. Currently resting in the ER. Complains of generalized weakness. She says she could not ambulate because of the weakness and she is feeling generalized tiredness. Has some headache, but her states she drinks 3 or 4 cups of coffee every day and she did not drink anything today. Denies any dizziness, no blurred visions, no double vision. Currently no earache. Currently no runny nose or sore throat. No cough, no fevers. Feeling somewhat chilly. No sore throat. Denies any chest pain, no shortness of breath. Feels nauseous, but no vomiting, no abdominal pain. Had a bowel movement today morning and it was normal and no blood in the stools or black stools. Normal bladder movements. Denies any burning micturitions or hematuria. No swelling in the legs. Currently, no rash. Denies any easy bleeding or easy bruising. Hemodynamics are stable. PAST MEDICAL HISTORY: As mentioned above. ALLERGIES: SULFA ANTIBIOTICS, ADHESIVE TAPES, BACITRACIN, INDOMETHACIN. PAST SURGICAL HISTORY: Colonoscopy, cystoscopy, dilatation and curettage, EGDs with endoscopic ultrasound, bilateral cataract surgery. MEDICATIONS: The patient is currently on multivitamins with minerals 1 tablet daily, Lipitor 10 mg 3 times a week, Tylenol 650 mg extended release q. 12 hours p.r.n., amlodipine 5 mg p.o. b.i.d., aspirin 325 mg p.o. a.m., Dymista 137/50 mcg 1 spray in each nostril b.i.d., calcium carbonate plus vitamin D 1 capsule p.o. a.m., Tums 400 mg as directed, esomeprazole magnesium 40 mg capsule delayed release p.o. q.a.m., glucosamine 1 tablet p.o. q.a.m., ipratropium bromide 0.03% nasal spray 2 sprays in each nostril b.i.d., montelukast 10 mg p.o. q.p.m., multivitamin 1 tablet p.o. a.m., Pepto-Bismol 2 tablets p.o. as directed, sodium chloride 1 gram p.o. t.i.d., vitamin E 400 mg p.o. q.a.m. FAMILY HISTORY: Significant for father has heart disorders, mother has eye problems, heart disorder, and hypertension; paternal grandfather had cancer; paternal grandmother had cancer; aunt has colorectal and ovarian cancer; maternal great aunt has breast cancer. SOCIAL HISTORY: , lives with her . Former smoker, smoked for 3 years at age of 22 and then quit. Alcohol 2-4 times a month. Four cups of coffee and tea daily. No drug use. REVIEW OF SYSTEMS: As per HPI. Rest of review of systems negative. PHYSICAL EXAMINATION: GENERAL: The patient is of moderate build, not in acute distress. VITAL SIGNS: Temperature 36.4, pulse 96, respiratory rate 24, blood pressure 128/62, oxygen 96% on room air. HEENT: No pallor, no icterus. Pupils equal, round, reactive to light. Extraocular muscles intact. No nystagmus. NECK: No JVD, no neck masses, no carotid bruits. CARDIOVASCULAR: S1, S2 heard, regular rate and rhythm, no murmur, no gallop. RESPIRATORY SYSTEM: Normal AP diameter. No shortness of breath. No accessory muscle use. No wheezing, no crackles. ABDOMEN: Soft, bowel sounds present. Nontender, no distention. CENTRAL NERVOUS SYSTEM: Alert and awake and oriented. Coordination of movements normal. Sensation is intact. Clqk-pt-tptc test normal. No pronator drift on the left upper extremity. She is not able to lift her right arm which is a chronic condition. Sensation is intact, position sense intact. EXTREMITIES: No edema, no erythema. LABORATORY DATA: Done in the morning, WBC 11, hemoglobin 14, hematocrit 40.8, platelets 264. PT 10.8, INR 1.1, APTT 26.2. Sodium 132, potassium 3.8, chloride 100, bicarbonate 24, BUN 11, creatinine 0.6, serum glucose 115, calcium 9.4, magnesium 2, total bilirubin 0.5, AST 20, ALT 27, alkaline phosphatase 58, total creatinine kinase 98. Troponin I less than 0.015. TSH 2.5. Urinalysis, +1 blood. Influenza A and B negative. EKG: Normal sinus rhythm with a rate of 97, possible left atrial enlargement, no acute ST changes seen. ASSESSMENT AND PLAN: This is a 73-year-old female who presents with generalized weakness and fall. 1. Generalized weakness and fall. Was in the ER early in the morning. Workup was unremarkable. Discharged home, but could not get up from the car, was brought in back. Hemodynamically stable, alert and oriented. Exam was nonfocal. The patient says her symptoms started after she got a shingles shot yesterday at [facility]. Her shingles shot site on the right arm is unremarkable. No erythema or drainage seen or any rash seen. We will observe in medical floor. Gentle fluids. PT and OT in a.m. and follow the labs in a.m. and monitor. 2. History of chronic hyponatremia. Sodium is 132, on sodium tablets. Follows with nephrology. Continue the sodium tablets. Follow the labs in a.m. 3. History of mild intermittent asthma, currently stable. Continue her home Montelukast and nasal sprays. 4. Hypertension. Continue her amlodipine and monitor the blood pressure. 5. Hyperlipidemia. Continue her statin 3 times a week. CPK was normal. 6. Generalized osteoarthritis. Continue on Tylenol p.r.n. and aspirin daily. 7. Gastroesophageal reflux disease, on Nexium. 8. Hx of CVA in 2011. No residual weakness from CVA. On aspirin ans statin. 9. Hx of DVT. 2011. Was on anticoagulation for two years as per patient and . Followed up with heme/onco,Workup showed factor 5 Leiden mutation heterogynous. At that time as per patient hem/onco and neurology decided for full dose aspirin. 10.. Deep venous thrombosis prophylaxis, on sequential compression devices. DISPOSITION: Observe in medical floor. PT and OT prior to discharge. Social service to help with discharge planning. Level 1 full code. MTDD
[2019-05-11 06:05] LABS: Basophils # (auto) 0.04 K/uL (0-0.2); Basophils % (auto) 0.6 %; Eosinophils # (auto) 0.04 K/uL (0-0.5); Eosinophils % (auto) 0.6 %; Hematocrit (blood only) 39.1 % (37-47); Immature Granulocytes # (auto) 0.01 K/uL (0.00-0.02); Immature Granulocytes % (auto) 0.1 %; Lymphocytes % (auto) 23.5 %; Mean Corpuscular Hemoglobin 30.4 pg (25-34); Mean Corpuscular Hgb Conc 33.2 g/dL (32-36); Mean Corpuscular Volume 91.6 fL (80-100); Mean Platelet Volume 11.5 fL (7.4-10.4); Monocytes # (auto) 1.16 K/uL (0.11-0.59); Neutrophils # (auto) 3.97 K/uL (1.4-6.5); Neutrophils % (auto) 58.2 %; Platelet Count 205 K/uL (130-400); RDW Coefficient of Variation 13.6 % (11.5-14.5); RDW Standard Deviation 45.4 fL (36.4-46.3); Red Blood Count 4.27 M/uL (4.2-5.4); White Blood Count 6.82 K/uL (4.8-10.8)
[2019-05-11] MEDS: ACETAMINOPHEN 325 MG TAB PO PRN ×2 (06:06→20:03)
[2019-05-11 06:21] LABS: BUN Creatinine Ratio 18.4 (10-20); Calcium 8.5 mg/dl (8.5-10.1); Est GFR (African American) 105.5; Est GFR (Non-African American) 91.1; Magnesium 2.1 mg/dl (1.8-2.4); Potassium 4.2 mmol/L (3.5-5.1)
[2019-05-11] MEDS ORDERED: bisacodyL 10 MG SUPP PR ONE (07:15)
[2019-05-11] MEDS ORDERED: LACTULOSE SYRUP 30 GM/45 ML UDP PO ONE (07:15)
[2019-05-11] MEDS ORDERED: OXYCODONE HCL IR 5 MG TAB (IMMEDIATE RELEASE) PO ONE (07:35)
[2019-05-11] MEDS: MULTIVITAMIN TAB PO SCH (08:01)
[2019-05-11] MEDS: CALCIUM 600MG + VIT D 400 IU TAB PO SCH (08:01)
[2019-05-11] MEDS: AMLODIPINE BESYLATE 5 MG TAB PO SCH ×2 (08:01→20:00)
[2019-05-11] MEDS: ASPIRIN 325 MG ECTAB PO SCH (08:01)
[2019-05-11] MEDS: TOCOPHERYL, DL-ALPHA 400 UNITS CAP PO SCH (08:01)
[2019-05-11] MEDS: SODIUM CHLORIDE 1 GM TABLET PO SCH ×3 (08:02→20:00)
[2019-05-11] MEDS: PANTOprazole 40 MG TAB PO SCH (08:02)
[2019-05-11] MEDS ORDERED: ATORVASTATIN 10 MG TAB PO SCH (09:00)
[2019-05-11] MEDS ORDERED: [UNRECOGNIZED DRUG - OTHER] PO SCH (09:00)
[2019-05-11] MEDS: SODIUM CHLORIDE 0.9% 1000ML 1,000 ML IV SCH (10:50)
--- NOTE | 2019-05-11 11:33 | Hospitalist Progress Note ---
Date of Service May 11, 2019 Assessment & Plan (1) Weakness: Acute weakness after Shingrix vaccine. Uncertain etiology but suspect vaccine as a cause. Relflexes are intact and there is no evidence of SOB. Cont to monitor. sTop IVF. PT/OT to evaluate her. (2) Factor V Leiden: has a h/o DVT in the leg. Cont ASA 325mg daily. (3) Hyponatremia: within normal range, cont salt tablets per home regimen. (4) HTN (hypertension): At goal, cont amlodipine. (5) DVT prophylaxis: Lovenox Full Dispo-to home in am. Radha Collins DO [facility] and Anticipated Discharge Date Admission Date: May 10, 2019 Anticipated date of discharge: 05/12/19 Subjective 73 yo F who received Shingrix vaccine and developed acute fatigue and weakness. Today she reports feeling better than on admission and she is hopeful about walking independently. She denies any numbness, tingling, pain at the injection site, rash or other skin changes. She denies any focal weakness. Review of Systems Review of Systems: All systems reviewed & are unremarkable except as noted in Subjective Physical Exam Physical Exam: CONSTITUTIONAL: WNWD, vitals as above, generally well- appearing EYES: PERRL, normal conjunctivae, no scleral icterus ENT: MMM RESPIRATORY: clear to auscultation bilaterally, no crackles, rales or wheezes, normal respiratory effort CARDIOVASCULAR: regular rate and rhythm, S1 and 2 heard without murmurs, gallops or rubs, no JVD, no peripheral edema CHEST: inspection of chest was normal (+pacemaker, +port) GASTROINTESTINAL: soft, nontender, nondistended MUSCULOSKELETAL: strength 5/5 throughout, head is normocephalic and atraumatic, neck supple, normal palpation of chest wall without tenderness SKIN: warm and dry, no rashes, injection site was without abnormalities on right shoulder. NEUROLOGIC: patellar DTRs 2+ bilat. No facial palsy, no dysarthria. Touch, pain and proprioception normal. CN 2-12 grossly intact, no sensory deficit, normal cognition, normal speech, no tremor PSYCHIATRIC: alert cooperative and oriented to person, place and time. Euthymic mood, makes good eye contact, language grossly intact Results & Data ([facility]) Vital Signs (Past 12 Hours) Vital Signs Temp Pulse Resp BP Pulse Ox 03/06/20 07:50 36.4 C L 85 18 137/75 92 Laboratory Results Short CBC 05/11/19 Range/Units 05:53 WBC 6.82 (4.8-10.8) K/uL Hgb 13.0 (12.0-16.0) g/dL Hct 39.1 (37-47) % Plt Count 205 (130-400) K/uL BMP 05/11/19 05:53 Sodium 134 L Potassium 4.2 Chloride 104 Carbon Dioxide 25 BUN 11 Creatinine 0.60 Glucose 105 H Calcium 8.5 Cardiac Enzymes 05/11/19 Range/Units 05:53 Total Creatine Kinase 121 (26-192) U/L Medications Administered Current Inpatient Medications Acetaminophen (Tylenol) 650 mg PO Q4H PRN PRN Reason: pain/fever Stop: 06/09/19 20:51 Last Admin: 05/11/19 06:06 Dose: 650 mg Documented by: Amlodipine Besylate (Norvasc) 5 mg PO BID [facility] Stop: 06/09/19 20:59 Last Admin: 05/11/19 08:01 Dose: 5 mg Documented by: Aspirin (Ecotrin) 325 mg PO QAM [facility] Stop: 06/10/19 08:59 Last Admin: 05/11/19 08:01 Dose: 325 mg Documented by: Atorvastatin Calcium (Lipitor) 10 mg PO MoWeFr@[id number] [facility] Stop: 06/10/19 08:59 Last Admin: 05/11/19 08:01 Dose: 10 mg Documented by: Bismuth Subsalicylate (Pepto-Bismol) 2 tab PO PRN PRN PRN Reason: indigestion Stop: 06/09/19 21:47 Calcium Carbonate (Tums) 500 mg PO Q4H PRN PRN Reason: GI UPSET Stop: 06/09/19 21:49 Sodium Chloride (Nss 1000ml) 1,000 mls @ 75 mls/hr IV .[id number] [facility] Stop: 06/09/19 20:51 Last Admin: 05/11/19 10:50 Dose: 75 mls/hr Documented by: Miscellaneous (Order Awaiting Action) 1 ea N/A QS [facility] Stop: 06/10/19 00:00 Last Admin: 05/11/19 08:53 Dose: Not Given Documented by: Miscellaneous (Order Awaiting Action) 1 ea N/A QS [facility] Stop: 06/10/19 00:00 Last Admin: 05/11/19 08:53 Dose: Not Given Documented by: Montelukast Sodium (Singulair) 10 mg PO QPM [facility] Stop: 06/09/19 20:59 Last Admin: 05/10/19 21:28 Dose: 10 mg Documented by: Multivitamins (Multivitamin Tab) [facility] [place] Stop: 06/10/19 08:59 Last Admin: 05/11/19 08:01 Dose: 1 tab Documented by: Multivitamins/Minerals (Caltrate Plus) 1 [facility] [place] Stop: 06/10/19 08:59 Last Admin: 05/11/19 08:01 Dose: 1 tab Documented by: Ondansetron HCl (Zofran) 4 mg IV Q6H PRN PRN Reason: Nausea Stop: 06/09/19 20:51 Pantoprazole Sodium (Protonix) 40 [facility] [place] Stop: 06/10/19 08:59 Last Admin: 05/11/19 08:02 Dose: 40 mg Documented by: Polyethylene Glycol (Miralax Powder Packet) 17 gm PO DAILY PRN PRN Reason: Constipation Stop: 06/09/19 20:51 Sodium Chloride (Sodium Chloride) 1 gm PO TID [facility] Stop: 06/09/19 20:59 Last Admin: 05/11/19 08:02 Dose: 1 gm Documented by: Vitamin E (Vitamin E) 400 units PO [facility] [place] Stop: 06/10/19 08:59 Last Admin: 05/11/19 08:01 Dose: 400 units Documented by:
[2019-05-11] MEDS: MONTELUKAST SODIUM 10 MG TABLET PO SCH (20:00)
[2019-05-12] MEDS: AMLODIPINE BESYLATE 5 MG TAB PO SCH (07:38)
[2019-05-12] MEDS: SODIUM CHLORIDE 1 GM TABLET PO SCH (07:38)
[2019-05-12] MEDS: TOCOPHERYL, DL-ALPHA 400 UNITS CAP PO SCH (07:39)
[2019-05-12] MEDS: ASPIRIN 325 MG ECTAB PO SCH (07:39)
[2019-05-12] MEDS: MULTIVITAMIN TAB PO SCH (07:39)
[2019-05-12] MEDS: CALCIUM 600MG + VIT D 400 IU TAB PO SCH (07:39)
[2019-05-12] MEDS: PANTOprazole 40 MG TAB PO SCH (07:39)
[2019-05-12] MEDS ORDERED: ENOXAPARIN INJ 40 MG/0.4 ML SYR SQ SCH (09:00)
[2019-05-12] MEDS ORDERED: ONDANSETRON INJ 2 MG/ML 2 ML VIAL IV SCH (10:00)
--- NOTE | 2019-05-12 10:47 | Discharge Summary ---
Date of Service May 12, 2019 Admission HPI Per Admitting Provider HISTORY OF PRESENT ILLNESS: This is a 73-year-old female with past medical history significant for chronic hyponatremia, on salt tablets; mild intermittent asthma; hypertension; irritable bowel syndrome; GERD; chronic interstitial cystitis; senile osteoporosis; generalized osteoarthritis; spondylosis of lumbar region; factor V Leiden mutation heterozygous; history of CVA; history of DVT of lower extremity, no longer on anticoagulation, who presents with generalized weakness. The patient lives with her ,. Until yesterday she was fine. Yesterday, she had a shingles shot in the right arm at [facility] and she was fine at that time, but in the evening when she went to shower, she was feeling generalized weakness and she just wanted to go to bed and sleep. Her helped her to go to bed. In the morning, generally she wakes up around 9:00 a.m., but today she could not wake up. Her went and tried to wake her up and she was feeling weak and tired and had some back pain and she did not eat her breakfast. She she went to bathroom and sat on the commode. Her heard her fall down. She did not hit her head. She had no loss of consciousness. She was just getting up from the commode and felt generalized weak and fell down. Her could not get her up for half an hour and he called the EMS and they helped her to get to the bed and they decided to come to the ER. In the ER, CT of head was ok, mild leukocytosis,. Electrolytes and LFTs were unremarkable. Troponin was negative. Flu was negative and she was discharged back home. says they went home in the car and they stopped at [facility] and had something to eat and then when they went to home, the patient was not able to get out from the car,and he brought the patient back to the hospital. Currently resting in the ER. Complains of generalized weakness. She says she could not ambulate because of the weakness and she is feeling generalized tiredness. Has some headache, but her states she drinks 3 or 4 cups of coffee every day and she did not drink anything today. Denies any dizziness, no blurred visions, no double vision. Currently no earache. Currently no runny nose or sore throat. No cough, no fevers. Feeling somewhat chilly. No sore throat. Denies any chest pain, no shortness of breath. Feels nauseous, but no vomiting, no abdominal pain. Had a bowel movement today morning and it was normal and no blood in the stools or black stools. Normal bladder movements. Denies any burning micturitions or hematuria. No swelling in the legs. Currently, no rash. Denies any easy bleeding or easy bruising. Hemodynamics are stable. Admission Exam Per Admitting Provider PHYSICAL EXAMINATION: GENERAL: The patient is of moderate build, not in acute distress. VITAL SIGNS: Temperature 36.4, pulse 96, respiratory rate 24, blood pressure 128/62, oxygen 96% on room air. HEENT: No pallor, no icterus. Pupils equal, round, reactive to light. Extraocular muscles intact. No nystagmus. NECK: No JVD, no neck masses, no carotid bruits. CARDIOVASCULAR: S1, S2 heard, regular rate and rhythm, no murmur, no gallop. RESPIRATORY SYSTEM: Normal AP diameter. No shortness of breath. No accessory muscle use. No wheezing, no crackles. ABDOMEN: Soft, bowel sounds present. Nontender, no distention. CENTRAL NERVOUS SYSTEM: Alert and awake and oriented. Coordination of movements normal. Sensation is intact. [id number]-vn-[id number] test normal. No pronator drift on the left upper extremity. She is not able to lift her right arm which is a chronic condition. Sensation is intact, position sense intact. EXTREMITIES: No edema, no erythema. Principal Diagnosis Generalized weakness possibly vaccine reaction-resolved. Discharge Exam CONSTITUTIONAL: WNWD, vitals as above, generally well-appearing EYES: normal conjunctivae, no scleral icterus ENT: MMM RESPIRATORY: clear to auscultation bilaterally, no crackles, rales or wheezes, normal respiratory effort CARDIOVASCULAR: regular rate and rhythm, S1 and 2 heard without murmurs, gallops or rubs, no JVD, no peripheral edema GASTROINTESTINAL: soft, nontender, nondistended MUSCULOSKELETAL: strength 5/5 throughout, head is normocephalic and atraumatic SKIN: warm and dry, no rashes, injection site was without abnormalities on right shoulder. NEUROLOGIC: No facial palsy, no dysarthria. CN 2-12 grossly intact, no sensory deficit, normal cognition, normal speech, no tremor, no gross neurologic deficits. PSYCHIATRIC: alert cooperative and oriented to person, place and time. Discharge Data Allergies Allergy/AdvReac Type Severity Reaction Status Date / Time indomethacin Allergy Intermediate "FEEL Verified 05/10/19 15:41 STRANGE AND OUT OF IT" adhesive Allergy Mild RASH WITH Verified 05/10/19 15:41 EXTENDED USE bacitracin Allergy Mild RASH Verified 05/10/19 15:41 latex Allergy Mild RASH WITH Verified 05/10/19 15:41 LONGER EXPOSURE neomycin Allergy Mild RASH Verified 05/10/19 15:41 polymyxin B Allergy Mild RASH Verified 05/10/19 15:41 Sulfa (Sulfonamide Allergy Mild RASH Verified 05/10/19 15:41 Antibiotics) Consultations 05/10/19 19:33 ED Decision to Admit Stat 05/10/19 20:52 Consult Case Management - Discharge Planning Routine Hospital Course (1) Weakness: Acute weakness after Shingrix vaccine. Uncertain etiology but suspect vaccine as a cause. Refllexes are intact and there is no evidence of SOB or developing Guillain [place]. Continued to monitor overnight with improvement. Ambulating independently and at baseline prior to discharge. Local injection site was unremarkable. Additional workup included CXR and Head CT, which were within normal limits, a sacral xray and lumbar xray after her fall at home which revealed no acute evidence of fracture or dislocation. An EKG revealed SR, CBC was normal wtih a WBC count of 11K, CMP was normal with Na 132. She has a known h/o chronic hyponatremia and is on salt tablets at home. UA was checked without evidence of UTI. She was sent home in stable condition to discuss whether or not it would be jason to receive her follow-up Shingrix injection as this was likely a vaccine-related issue. Total Time Total Time Spent Total Time Spent (In Minutes): 60 Total Time Includes: Examination of the Patient, Discharge Planning, Medication Reconciliation and Communication With Other Providers Discharge Plan Discharge Items Patient Disposition: Home - Self-Care Reason For Visit: GENERALIZED WEAKNESS Discharge Diagnosis: Generalized weakness possibly vaccine reaction-resolved. Condition on Discharge: Good Activity: Resume your previous activity Non-emergency contact: Primary Care Provider Call non-emergency contact if: you have any medication questions, your symptoms worsen, your pain is not controlled, your pain is worsening, your pain is unusual for you, your pain is concerning for you and you have a fever Follow-up/Referrals: Magda Taylor DO [Primary Care Provider] - 05/17/19 11:00 am (You have a follow up appt on May 16 at 11am. Please arrive 15 minutes prior to appt. If this appt does not fit your scheudle please call [phone] to reschedule. ) Diet: Regular Addtl Attending Provider Instructions: Please continue all medications as instructed on discharge list below. It is recommended to follow-up with your primary care provider within one week of discharge to ensure you are still doing well after going home. It was a pleasure taking care of you! Please call if you have any questions or problems. You can reach a [facility] hospitalist on duty at [facility] 24 hours a day by calling [phone]. Take care of yourself. Radha Collins DO [facility] Hospitalist Pending Studies at Discharge: No Stand-Alone Forms: My [facility], Smoking Cessation Medications and DC Order Prescriptions: Continued acetaminophen [Tylenol Arthritis Pain] 650 mg tablet extended release 650 mg PO Q12H PRN (Reason: Pain) RF: 0 Dymista 137-50 mcg/spray spray,non-aerosol 1 sprays INTNAS BID RF: 0 aspirin 325 mg tablet 325 mg PO QAM RF: 0 esomeprazole magnesium [Nexium] 40 mg capsule,delayed release(DR/EC) 40 mg PO QAM RF: 0 [id number] [id number] mg tablet 1 tab PO QAM RF: 0 ipratropium bromide 0.03 % spray,non-aerosol 2 sprays INTNAS BID RF: 0 montelukast [Singulair] 10 mg tablet 10 mg PO QPM RF: 0 multivitamin tablet 1 tab PO QAM RF: 0 calcium carbonate-vitamin D3 600 mg (1,500 mg)-2,500 unit capsule 1 cap PO QAM RF: 0 sodium chloride 1 gram tablet 1,000 mg PO TID RF: 0 amlodipine 5 mg tablet 5 mg PO BID Qty: 180 RF: 3 calcium carbonate [Tums Ultra] 400 mg calcium (1,000 mg) Tablet,Chewable 400 mg PO DIRECTED PRN (Reason: Gi Upset) RF: 0 atorvastatin 10 mg Tablet 10 mg PO 3XWK RF: 0 vitamin E 400 unit Capsule 400 unit PO QAM RF: 0 Pepto-Bismol 262 mg Tablet 2 tab PO DIRECTED PRN (Reason: Indigestion) RF: 0 Discharge Orders: Discharge Order (Routine); Ordered 05/12/19 Ordered By: Radha Collins Admission Data Admit Date/Time: 05/10/19 19:55 Attending Provider: Radha Collins Admit Provider: Mateo Dumont Primary Care Provider: Magda Taylor Other Providers: Mateo Dumont Other Interventions: Discharge Summary Assessment (RN) Last Done: 05/12/19 11:22 DC Date/Time DO NOT enter until pt leaves facility: 05/12/19 13:15
== END 2019-05-12 13:15 | disposition home or self-care (01) | DRG 948 ==
LOC: ED 18:29 → 4W 18:29

== ENCOUNTER 2020-05-03 23:22 | Observation (INO) ==
[2020-05-03] MEDS ORDERED: FAMOTIDINE 20MG IV PUSH 20 MG/5 ML SYR IV STA (23:38)
[2020-05-03] MEDS ORDERED: SODIUM CHLORIDE 0.9% 1000ML 1,000 ML IV ONE (23:38)
[2020-05-03] MEDS ORDERED: ACETAMINOPHEN 1,000 MG/100 ML VIAL IV STA (23:38)
[2020-05-03] MEDS ORDERED: ONDANSETRON INJ 2 MG/ML 2 ML VIAL IV STA (23:38)
--- NOTE | 2020-05-03 23:48 | Emergency Department Note ---
Impression & Plan Fever after vaccination, Generalized weakness, Acute dehydration, Status post administration of all doses of COVID-19 vaccine series ED Provider Note NAME: TATIANA ESCOBAR AGE: 74 SEX: F ARRIVES VIA: Ambulance INFORMANT: Patient, ED PROVIDER(S): Gaurav Toledo MD CHIEF COMPLAINT: Weakness, fever. PLAN: Disposition: Admit MEDICAL DECISION MAKING: The patient is a pleasant 74-year-old woman with a past medical history of GERD, spinal stenosis, factor V Leiden, hypertension who presents emergency department with generalized weakness, fevers, nausea and vomiting after having her second COVID-19 vaccination injection this afternoon at 2 PM where she subsequently gradually felt weak and achy and developed fevers several hours later. Patient denies any chest pain, cough, congestion. She reports feeling weak and leaning against a wall and slumping to the ground denies any abrupt fall or collapse. She denies any head strike or loss of consciousness. Of note, review of the patient's medical record shows she was admitted with similar generalized weakness following her shingles vaccine in 2019. Note, the patient reports feeling well recently and denied any illness prior to receiving her immunization today. On arrival the patient is ill-appearing but no acute distress, febrile to 39.5, heart rate in the 100s hypertensive 200s/100s. Her oxygen saturation is normal on room air. Abdomen is benign. EKG without overt acute ischemia. Chest x-ray negative for acute cardiopulmonary process per my preliminary review. WBC, H/H and platelets within normal limits. Chemistry without metabolic acidosis. Lactate 1.4, within normal limits. BUN/creatinine> 20 consistent with patient's clinically dry appearance. Electrolytes and LFTs unremarkable. Troponin negative/undetectable. Lipase within normal limits. On reevaluation patient did appear improved after IV fluid hydration, IV APAP, Pepcid and Zofran. However, still tachycardic in the low 100s with generalized weakness and so given the patient's presumed severe immune response to her immunization reasonable admit the patient for further supportive care. Patient agrees with plan for admission. Case was discussed with Dr. Owens, [facility] hospitalist, who will evaluate the patient for admission. Triage Nursing notes reviewed and agree them. Prior medical records reviewed Vital Signs: reviewed and remarkable for fever, tachycardia. Differential diagnosis: Infection, dehydration, metabolic abnormality, hypo/hyperglycemia, electrolyte disturbance, anemia, hypoxia, cardiac sources, intracerebral event, toxicologic, neurologic, as well as other pathologies. ER treatment provided: See below. Diagnostics interpreted by me: ECG: Sinus tachycardia, 102 bpm, no ectopy, nonspecific ST abnormality, no overt ST elevation or depression. Cardiac Monitoring: An order for continuous cardiac monitoring was placed and demonstrated sinus tachycardia, 110bpm, no ectopy. Laboratory studies: See below Imaging studies: CXR: No acute cardiopulmonary process per my preliminary review. Consultation(s): Dr. Owens, [facility] hospitalist. HPI: The patient is a pleasant 74-year-old woman with a past medical history of GERD, spinal stenosis, factor V Leiden, hypertension who presents emergency d epartment with generalized weakness, fevers, nausea and vomiting after having her second COVID-19 vaccination injection this afternoon at 2 PM where she subsequently gradually felt weak and achy and developed fevers several hours later. Patient denies any chest pain, cough, congestion. She reports feeling weak and leaning against a wall and slumping to the ground denies any abrupt fall or collapse. She denies any head strike or loss of consciousness. Of note, review of the patient's medical record shows she was admitted with similar generalized weakness following her shingles vaccine in 2019. Note, the patient reports feeling well recently and denied any illness prior to receiving her i mmunization today. ROS: See above HPI for pertinent positives & negatives. A total of 10 systems reviewed and were otherwise negative. PAST MEDICAL HISTORY:See Below PAST SURGICAL HISTORY:See Below FAMILY HISTORY:See Below SOCIAL HISTORY:See Below HOME MEDICATIONS:See Below ALLERGIES:See Below VITALS:See Below PHYSICAL EXAMINATION: GENERAL: Awake, alert, uncomfortable-appearing, in no distress HENT: Normocephalic, atraumatic. Oropharynx with dry mucous membranes and otherwise unremarkable. EYES: Normal conjunctiva. Sclera non-icteric. EOMI. No nystamgus. PEARRL. NECK: Supple. No nuchal rigidity. FROM. No JVD. RESPIRATORY: Clear to auscultation. CARDIAC: Tachycardic rate, normal rhythm. Extremities warm and well perfused. Pulses equal. ABDOMEN: Soft, non-distended. No tenderness to palpation. No rebound or guarding. No masses. RECTAL: Deferred. MUSCULOSKELETAL: Chest examination reveals no tenderness. The back is symmetrical on inspection without obvious abnormality. There is no CVA tenderness to palpation. No joint edema. LOWER EXTREMITIES: Calves are equal size bilaterally and non-tender. No edema. No discoloration. NEURO: Normal sensorium. No focal sensory or motor deficits noted. Generalized weakness with 4/5 strength x 4 ext. SKIN: No rash or jaundice noted. Gaurav Toledo MD Past Med/Surg History Medical History Asthma NO CURRENT INHALER Chronic pain of left knee DVT (deep venous thrombosis) LEFT LEG (WAS TAKING WARFARIN 2011) Factor 5 Leiden mutation, heterozygous GERD (gastroesophageal reflux disease) History of colitis Hypertension Hyponatremia Migraine Osteoarthritis Spinal stenosis Stroke 02/08/2012 (NO CURRENT PROBLEMS) Surgical History History of bilateral tubal ligation History of cataract surgery RT/LEFT History of colonoscopy History of esophagogastroduodenoscopy (EGD) History of surgery on arm RT ARM History of tooth extraction S/P wrist surgery LEFT Family History Mother Family history of diabetes mellitus Aunt Family hx of colon cancer Social History Smoking Status: Never smoker Years Smoked: 3; Number of Years Since Quit: 50; Second Hand Exposure: No; Hx Alcohol Use: Yes Alcohol type: wine Hx Substance Use: No Preferred Language: Marshallese Communication Ability: Effective Visual Impairment: No Limitations Hearing Ability: Normal 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 Beliefs That Will Affect Care: None marital status: Current Living Situation: Spouse Current Living Situation Comment: With current occupational status: retired Feels Safe at Home: Yes Safety Concerns: Feels Safe At This Time Assistive Devices: Glasses Allergies Allergies Allergy/AdvReac Type Severity Reaction Status Date / Time indomethacin Allergy Intermediate "FEEL Verified 05/03/20 23:59 STRANGE AND OUT OF IT" adhesive Allergy Mild RASH WITH Verified 05/03/20 23:59 EXTENDED USE bacitracin Allergy Mild RASH Verified 05/03/20 23:59 latex Allergy Mild RASH WITH Verified 05/03/20 23:59 LONGER EXPOSURE neomycin Allergy Mild RASH Verified 05/03/20 23:59 polymyxin B Allergy Mild RASH Verified 05/03/20 23:59 Sulfa (Sulfonamide Allergy Mild RASH Verified 05/03/20 23:59 Antibiotics) Home Meds Home Medications Medication Instructions Recorded Confirmed acetaminophen 650 mg 650 mg PO Q12H PRN 05/23/18 05/04/20 tablet,extended release aspirin 325 mg tablet 325 mg PO QAM 05/23/18 05/04/20 azelastine-fluticasone 137 mcg-50 1 sprays INTNAS BID 05/23/18 05/04/20 mcg/spray nasal spray calcium carbonate 600 mg (1,500 1 cap PO QAM cap 05/23/18 05/04/20 mg)-vitamin D3 2,500 unit capsule esomeprazole magnesium 40 mg 40 mg PO QAM 05/23/18 05/04/20 capsule,delayed release glucosamine 750 et-ixpsqsanh-zhs 1 tab PO QAM tab 05/23/18 05/04/20 no.7 644 mg-vit X-xoljzd-suygb tablet ipratropium bromide 0.03 % nasal 2 sprays INTNAS BID 05/23/18 05/04/20 spray montelukast 10 mg tablet 10 mg PO QPM 05/23/18 05/04/20 multivitamin 1 tab PO QAM 05/23/18 05/04/20 atorvastatin 10 mg PO 3XWK 01/26/19 05/04/20 vitamin E 400 unit PO QAM 01/26/19 05/04/20 calcium carbonate [Tums Ultra] 400 mg PO DIRECTED PRN 05/10/19 05/04/20 Previous Rx's Medication Instructions Recorded amlodipine 2.5 mg tablet 2.5 mg PO DAILY #90 tab 03/21/20 sodium chloride 1 gram tablet 1,000 mg PO BID #90 tab 03/21/20 Results & Data (ED) Vital Signs Vital Signs - 24 hr 05/03/20 23:25 05/03/20 23:30 05/03/20 23:53 Temperature 39.5 C H Temperature Source Oral Pulse Rate 109 H Pulse Rate [Bilateral Apical] Respiratory Rate 20 Respiratory Effort / Characteristics Blood Pressure 200/107 H Blood Pressure [Right Arm] Blood Pressure Mean 138 Blood Pressure Mean [Right Arm] Pulse Oximetry 97 98 96 Oxygen Delivery Method Room Air Room Air Room Air Sepsis Recent Fever Within 48 Hours Yes Sepsis New/Unexplained Change in Mental Status N/A Sepsis Action Taken by Nursing Previously Notified 05/04/20 00:07 05/04/20 00:08 05/04/20 01:00 Temperature 37.2 C Temperature Source Oral Pulse Rate Pulse Rate [Bilateral Apical] 107 H Respiratory Rate 20 Respiratory Effort / Characteristics Non-Labored Non-Labored Blood Pressure Blood Pressure [Right Arm] 172/94 H Blood Pressure Mean Blood Pressure Mean [Right Arm] 120 Pulse Oximetry 96 Oxygen Delivery Method Room Air Sepsis Recent Fever Within 48 Hours Sepsis New/Unexplained Change in Mental Status Sepsis Action Taken by Nursing 05/04/20 01:07 05/04/20 01:51 05/04/20 02:26 Temperature Temperature Source Pulse Rate Pulse Rate [Bilateral Apical] 110 H 112 H Respiratory Rate 20 20 Respiratory Effort / Characteristics Non-Labored Non-Labored Blood Pressure Blood Pressure [Right Arm] 150/63 H 144/77 H Blood Pressure Mean Blood Pressure Mean [Right Arm] 92 99 Pulse Oximetry 95 100 Oxygen Delivery Method Room Air Room Air Sepsis Recent Fever Within 48 Hours Sepsis New/Unexplained Change in Mental Status Sepsis Action Taken by Nursing 05/04/20 03:06 Temperature Temperature Source Pulse Rate Pulse Rate [Bilateral Apical] 101 H Respiratory Rate 20 Respiratory Effort / Characteristics Non-Labored Blood Pressure Blood Pressure [Right Arm] 154/78 H Blood Pressure Mean Blood Pressure Mean [Right Arm] 103 Pulse Oximetry 97 Oxygen Delivery Method Room Air Sepsis Recent Fever Within 48 Hours Sepsis New/Unexplained Change in Mental Status Sepsis Action Taken by Nursing Laboratory Data Attestation: I reviewed the patient's lab results. Result diagrams: 05/03/20 23:50 05/03/20 23:50 Lab Results 05/03/20 05/03/20 05/03/20 Range/Units 23:50 23:50 23:50 WBC 8.51 (4.8-10.8) K/uL RBC 4.52 (4.2-5.4) M/uL Hgb 13.6 (12.0-16.0) g/dL Hct 39.0 (37-47) % MCV 86.3 (80-100) fL MCH 30.1 (25-34) pg MCHC 34.9 (32-36) g/dL RDW Std Deviation 42.5 (36.4-46.3) fL RDW Coeff of Chrissie 13.4 (11.5-14.5) % Plt Count 219 (130-400) K/uL MPV 11.2 H (7.4-10.4) fL Immature Gran % (Auto) 0.1 % Neut % (Auto) 85.6 % Lymph % (Auto) 7.6 % [place] % (Auto) 6.1 % Eos % (Auto) 0.4 % Baso % (Auto) 0.2 % Neut # (Auto) 7.28 H (1.4-6.5) K/uL Lymph # (Auto) 0.65 L (1.2-3.4) K/uL [place] # (Auto) 0.52 (0.11-0.59) K/uL Eos # (Auto) 0.03 (0-0.5) K/uL Baso # (Auto) 0.02 (0-0.2) K/uL Immature Gran # (Auto) 0.01 (0.00-0.02) K/uL PT 10.1 (9.0-12.0) Seconds INR 1.0 (0.9-1.1) APTT 21.9 (21.0-31.0) Seconds PTT Ratio 0.8 Sodium 133 L (136-145) mmol/L Potassium 3.8 (3.5-5.1) mmol/L Chloride 100 (98-107) mmol/L Carbon Dioxide 27 (21-32) mmol/L Anion Gap 7.0 (3-11) BUN 21 H (7-18) mg/dl Creatinine 0.79 (0.6-1.2) mg/dl Est Cr Clr Drug Dosing 59.4 ml/min Est GFR ( Amer) 86.1 Est GFR (Non-Af Amer) 74.3 BUN/Creatinine Ratio 26.2 H (10-20) Glucose 115 H (70-99) mg/dl Lactate (0.4-2.0) mmol/L Calcium 9.3 (8.5-10.1) mg/dl Phosphorus 3.1 (2.5-4.9) mg/dl Magnesium 1.8 (1.8-2.4) mg/dl Total Bilirubin 0.5 (0.2-1) mg/dl Direct Bilirubin < 0.1 (0-0.2) mg/dl AST 17 (15-37) U/L ALT 24 (12-78) U/L Alkaline Phosphatase 68 (45-117) U/L Troponin I < 0.015 (0-0.045) ng/ml Total Protein 7.5 (6.4-8.2) gm/dl Albumin 4.1 (3.4-5.0) gm/dl Globulin 3.4 (2.5-4.0) gm/dl Albumin/Globulin Ratio 1.2 (0.9-2) Lipase 182 (73-393) U/L Procalcitonin (0-0.5) ng/ml TSH 2.060 (0.300-4.500) uIu/ml Urine Color Urine Appearance (Clear) Urine pH (4.5-7.5) Ur Specific [place] (1.000-1.030) Urine Protein (Negative) Urine Glucose (UA) (Negative) Urine Ketones (Negative) Urine Blood (Negative) Urine Nitrite (Negative) Urine Bilirubin (Negative) Urine Urobilinogen (Negative) Ur Leukocyte Esterase (Negative) Urine WBC (Auto) (0-5) /hpf Urine RBC (Auto) (0-4) /hpf U Hyaline Cast (Auto) (0-5) /lpf U Epithel Cells (Auto) (0-5) /lpf Urine Bacteria (Auto) (Negative) COVID-19 Eval Order SARS-CoV-2 (PCR) (Negative) Influenza Type A (PCR) (Neg) Influenza Type B (PCR) (Neg) RSV (RT-PCR) (Neg) 05/03/20 05/03/20 05/04/20 Range/Units 23:50 23:50 01:30 WBC (4.8-10.8) K/uL RBC (4.2-5.4) M/uL Hgb (12.0-16.0) g/dL Hct (37-47) % MCV (80-100) fL MCH (25-34) pg MCHC (32-36) g/dL RDW Std Deviation (36.4-46.3) fL RDW Coeff of Chrissie (11.5-14.5) % Plt Count (130-400) K/uL MPV (7.4-10.4) fL Immature Gran % (Auto) % Neut % (Auto) % Lymph % (Auto) % [place] % (Auto) % Eos % (Auto) % Baso % (Auto) % Neut # (Auto) (1.4-6.5) K/uL Lymph # (Auto) (1.2-3.4) K/uL [place] # (Auto) (0.11-0.59) K/uL Eos # (Auto) (0-0.5) K/uL Baso # (Auto) (0-0.2) K/uL Immature Gran # (Auto) (0.00-0.02) K/uL PT (9.0-12.0) Seconds INR (0.9-1.1) APTT (21.0-31.0) Seconds PTT Ratio Sodium (136-145) mmol/L Potassium (3.5-5.1) mmol/L Chloride (98-107) mmol/L Carbon Dioxide (21-32) mmol/L Anion Gap (3-11) BUN (7-18) mg/dl Creatinine (0.6-1.2) mg/dl Est Cr Clr Drug Dosing ml/min Est GFR ( Amer) Est GFR (Non-Af Amer) BUN/Creatinine Ratio (10-20) Glucose (70-99) mg/dl Lactate 1.4 (0.4-2.0) mmol/L Calcium (8.5-10.1) mg/dl Phosphorus (2.5-4.9) mg/dl Magnesium (1.8-2.4) mg/dl Total Bilirubin (0.2-1) mg/dl Direct Bilirubin (0-0.2) mg/dl AST (15-37) U/L ALT (12-78) U/L Alkaline Phosphatase (45-117) U/L Troponin I (0-0.045) ng/ml Total Protein (6.4-8.2) gm/dl Albumin (3.4-5.0) gm/dl Globulin (2.5-4.0) gm/dl Albumin/Globulin Ratio (0.9-2) Lipase (73-393) U/L Procalcitonin < 0.05 (0-0.5) ng/ml TSH (0.300-4.500) uIu/ml Urine Color Urine Appearance (Clear) Urine pH (4.5-7.5) Ur Specific [place] (1.000-1.030) Urine Protein (Negative) Urine Glucose (UA) (Negative) Urine Ketones (Negative) Urine Blood (Negative) Urine Nitrite (Negative) Urine Bilirubin (Negative) Urine Urobilinogen (Negative) Ur Leukocyte Esterase (Negative) Urine WBC (Auto) (0-5) /hpf Urine RBC (Auto) (0-4) /hpf U Hyaline Cast (Auto) (0-5) /lpf U Epithel Cells (Auto) (0-5) /lpf Urine Bacteria (Auto) (Negative) COVID-19 Eval Order [facility] at [facility] SARS-CoV-2 (PCR) (Negative) Influenza Type A (PCR) (Neg) Influenza Type B (PCR) (Neg) RSV (RT-PCR) (Neg) 05/04/20 05/04/20 Range/Units 01:30 02:30 WBC (4.8-10.8) K/uL RBC (4.2-5.4) M/uL Hgb (12.0-16.0) g/dL Hct (37-47) % MCV (80-100) fL MCH (25-34) pg MCHC (32-36) g/dL RDW Std Deviation (36.4-46.3) fL RDW Coeff of Chrissie (11.5-14.5) % Plt Count (130-400) K/uL MPV (7.4-10.4) fL Immature Gran % (Auto) % Neut % (Auto) % Lymph % (Auto) % [place] % (Auto) % Eos % (Auto) % Baso % (Auto) % Neut # (Auto) (1.4-6.5) K/uL Lymph # (Auto) (1.2-3.4) K/uL [place] # (Auto) (0.11-0.59) K/uL Eos # (Auto) (0-0.5) K/uL Baso # (Auto) (0-0.2) K/uL Immature Gran # (Auto) (0.00-0.02) K/uL PT (9.0-12.0) Seconds INR (0.9-1.1) APTT (21.0-31.0) Seconds PTT Ratio Sodium (136-145) mmol/L Potassium (3.5-5.1) mmol/L Chloride (98-107) mmol/L Carbon Dioxide (21-32) mmol/L Anion Gap (3-11) BUN (7-18) mg/dl Creatinine (0.6-1.2) mg/dl Est Cr Clr Drug Dosing ml/min Est GFR ( Amer) Est GFR (Non-Af Amer) BUN/Creatinine Ratio (10-20) Glucose (70-99) mg/dl Lactate (0.4-2.0) mmol/L Calcium (8.5-10.1) mg/dl Phosphorus (2.5-4.9) mg/dl Magnesium (1.8-2.4) mg/dl Total Bilirubin (0.2-1) mg/dl Direct Bilirubin (0-0.2) mg/dl AST (15-37) U/L ALT (12-78) U/L Alkaline Phosphatase (45-117) U/L Troponin I (0-0.045) ng/ml Total Protein (6.4-8.2) gm/dl Albumin (3.4-5.0) gm/dl Globulin (2.5-4.0) gm/dl Albumin/Globulin Ratio (0.9-2) Lipase (73-393) U/L Procalcitonin (0-0.5) ng/ml TSH (0.300-4.500) uIu/ml Urine Color Yellow Urine Appearance Clear (Clear) Urine pH 7.0 (4.5-7.5) Ur Specific [place] 1.013 (1.000-1.030) Urine Protein Negative (Negative) Urine Glucose (UA) Negative (Negative) Urine Ketones Negative (Negative) Urine Blood 1+ H (Negative) Urine Nitrite Negative (Negative) Urine Bilirubin Negative (Negative) Urine Urobilinogen Negative (Negative) Ur Leukocyte Esterase Negative (Negative) Urine WBC (Auto) 0 (0-5) /hpf Urine RBC (Auto) 5-10 H (0-4) /hpf U Hyaline Cast (Auto) 0 (0-5) /lpf U Epithel Cells (Auto) 0-5 (0-5) /lpf Urine Bacteria (Auto) Negative (Negative) COVID-19 Eval Order SARS-CoV-2 (PCR) NEGATIVE (Negative) Influenza Type A (PCR) Negative (Neg) Influenza Type B (PCR) Negative (Neg) RSV (RT-PCR) Negative (Neg) Administered Medications Lactated Ringer's (Lr) 1,000 mls @ 80 mls/hr IV .[id number] ONE Stop: 05/04/20 13:58 Last Admin: 05/04/20 02:11 Dose: 80 mls/hr Documented by: [id number] Discontinued Medications Acetaminophen (Acetaminophen 325 Mg Tab) 650 mg PO NOW STA Stop: 05/04/20 04:49 Last Admin: 05/04/20 05:00 Dose: 650 mg Documented by: [id number] Amlodipine Besylate (Amlodipine Besylate 5 Mg Tab) 2.5 mg PO NOW ONE Stop: 05/04/20 01:26 Last Admin: 05/04/20 01:46 Dose: 2.5 mg Documented by: [id number] Amlodipine Besylate (Amlodipine Besylate 5 Mg Tab) 2.5 mg PO NOW ONE Stop: 05/04/20 03:15 Last Admin: 05/04/20 04:39 Dose: 2.5 mg Documented by: [id number] Sodium Chloride (Nss 1000ml) 1,000 mls @ 999 mls/hr IV .[id number] ONE Stop: 05/04/20 00:38 Last Infusion: 05/04/20 01:01 Dose: 0 mls/hr Documented by: [id number] Admin: 05/03/20 23:51 Dose: 999 mls/hr Documented by: [id number] Acetaminophen (Ofirmev) 1,000 mg in 100 mls @ 400 mls/hr IV NOW STA Stop: 05/03/20 23:52 Last Infusion: 05/04/20 00:11 Dose: 0 mls/hr Documented by: [id number] Admin: 05/03/20 23:51 Dose: 400 mls/hr Documented by: [id number] Famotidine (Pepcid 20mg Iv Push) 20 mg in 5 mls @ 2.5 mls/min IV NOW STA Stop: 05/03/20 23:39 Last Admin: 05/03/20 23:51 Dose: 2.5 mls/min Documented by: [id number] Magnesium Sulfate/Dextrose (Magnesium Sulfate / D5w) 1 gm in 100 mls @ 50 mls/hr IV ONE ONE Stop: 05/04/20 03:27 Last Infusion: 05/04/20 03:06 Dose: 0 mls/hr Documented by: [id number] Admin: 05/04/20 01:46 Dose: 50 mls/hr Documented by: [id number] Ondansetron HCl (Ondansetron Inj 2 Mg/Ml 2 Ml Vial) 4 mg IV NOW STA Stop: 05/03/20 23:39 Last Admin: 05/03/20 23:51 Dose: 4 mg Documented by: [id number] Potassium Chloride (Potassium Chloride Crtab 20 Meq Tabcr) 20 meq PO NOW STA Stop: 05/04/20 04:01 Last Admin: 05/04/20 04:39 Dose: 20 meq Documented by: [id number] Discharge Plan Visit Data Chief Complaint: Fall Stated Complaint: FALL/WEAKNESS S/P COVID VAC TODAY ED Provider: Gaurav Toledo Discharge Problem: Fever after vaccination, Generalized weakness, Acute dehydration, Status post administration of all doses of COVID-19 vaccine series Patient Disposition: Admitted As Inpatient Discharge Instructions Interventions: ED Discharge Assessment Last Done: 05/04/20 03:34
[2020-05-03 23:58] LABS: Basophils # (auto) 0.02 K/uL (0-0.2); Basophils % (auto) 0.2 %; Eosinophils # (auto) 0.03 K/uL (0-0.5); Eosinophils % (auto) 0.4 %; Hemoglobin 13.6 g/dL (12.0-16.0); Immature Granulocytes # (auto) 0.01 K/uL (0.00-0.02); Immature Granulocytes % (auto) 0.1 %; Lymphocytes # (auto) 0.65 K/uL (1.2-3.4); Lymphocytes % (auto) 7.6 %; Mean Corpuscular Hemoglobin 30.1 pg (25-34); Mean Corpuscular Hgb Conc 34.9 g/dL (32-36); Mean Corpuscular Volume 86.3 fL (80-100); Mean Platelet Volume 11.2 fL (7.4-10.4); Monocytes # (auto) 0.52 K/uL (0.11-0.59); Monocytes % (auto) 6.1 %; Neutrophils # (auto) 7.28 K/uL (1.4-6.5); Neutrophils % (auto) 85.6 %; Platelet Count 219 K/uL (130-400); RDW Coefficient of Variation 13.4 % (11.5-14.5); RDW Standard Deviation 42.5 fL (36.4-46.3); Red Blood Count 4.52 M/uL (4.2-5.4); White Blood Count 8.51 K/uL (4.8-10.8)
[2020-05-04 00:11] LABS: Partial Thromboplastin Ratio 0.8; Partial Thromboplastin Time 21.9 Seconds (21.0-31.0); Prothrombin Time 10.1 Seconds (9.0-12.0)
[2020-05-04 00:16] LABS: Alanine Aminotransferase 24 U/L (12-78); Albumin Level 4.1 gm/dl (3.4-5.0); Aspartate Aminotransferase 17 U/L (15-37); BUN Creatinine Ratio 26.2 (10-20); Bilirubin Direct < 0.1 mg/dl (0-0.2); Blood Urea Nitrogen 21 mg/dl (7-18); Calcium 9.3 mg/dl (8.5-10.1); Carbon Dioxide 27 mmol/L (21-32); Chloride 100 mmol/L (98-107); Creatinine Clr Calc Pharmacy 59.4 ml/min; Est GFR (African American) 86.1; Est GFR (Non-African American) 74.3; Glucose 115 mg/dl (70-99); Lipase 182 U/L (73-393); Magnesium 1.8 mg/dl (1.8-2.4); Potassium 3.8 mmol/L (3.5-5.1); Sodium 133 mmol/L (136-145)
[2020-05-04 00:20] LABS: Albumin Globulin Ratio 1.2 (0.9-2); Alkaline Phosphatase 68 U/L (45-117); Bilirubin,Total 0.5 mg/dl (0.2-1); Globulin 3.4 gm/dl (2.5-4.0); Phosphorus 3.1 mg/dl (2.5-4.9); Total Protein 7.5 gm/dl (6.4-8.2); Troponin I < 0.015 ng/ml (0-0.045)
[2020-05-04] MEDS ORDERED: amLODIPine BESYLATE 5 MG TAB PO ONE (01:25)
[2020-05-04] MEDS ORDERED: MAGNESIUM SULFATE / D5W 1 GM/100 ML BAG IV ONE (01:28)
[2020-05-04] MEDS ORDERED: LACTATED RINGER'S 1,000 ML IV ONE (01:29)
[2020-05-04] MEDS ORDERED: SODIUM CHLORIDE 0.9% 1000ML 1,000 ML IV SCH (01:30)
--- NOTE | 2020-05-04 02:06 | History & Physical Report ---
Date of Service May 04, 2020 Assessment & Plan (1) Uncontrolled hypertension: Secondary to flulike illness post COVID-19 vaccination Salt tabs for chronic hyponatremia possibly contributory hx CVA as per records past history DVT status post anticoagulation chronic interstitial cystitis as per records, urgency symptoms with essentially uninfected UA Hyperglycemia rule out DM past tobacco abuse OBS Medical telemetry Titrate Norvasc Resume home salt tabs for hyponatremia once BP controlled Analgesia, supportive measures for flulike illness post COVID-19 vaccination Check hemoglobin A1c PT OT eval DVT prophylaxis Lovenox subcu Full code Text document was generated using [employer] voice recognition software. It may contain grammatical or spelling errors. Kindly contact undersigned for clarification of any documentation item in question. History of Present Illness Chief Complaint: Headache, fever, chills Primary Care Provider: Magda Taylor DO History obtained from patient and records. Medical history significant for hypertension, CVA, chronic hyponatremia, past history DVT status post anticoagulation, history heterozygous factor V Leiden mutation as per records, chronic interstitial cystitis as per records, past tobacco abuse. Last confinement May 2019 for generalized weakness post shingles vaccine administration. Patient received her second dose of COVID-19 vaccine yesterday. Later at home in the afternoon patient noted generalized weakness, followed by fever, chills, nausea, vomiting symptoms without abdominal pain. No constipation or diarrhea symptoms. Patient denies chest pain, cough, S OB symptoms. Feeling lightheaded when achy bitemporal headache symptoms. Urinary urgency as per patient. SBP upon arrival at the ER 200s. 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 Allergies Allergy/AdvReac Type Severity Reaction Status Date / Time indomethacin Allergy Intermediate "FEEL Verified 05/03/20 23:59 STRANGE AND OUT OF IT" adhesive Allergy Mild RASH WITH Verified 05/03/20 23:59 EXTENDED USE bacitracin Allergy Mild RASH Verified 05/03/20 23:59 latex Allergy Mild RASH WITH Verified 05/03/20 23:59 LONGER EXPOSURE neomycin Allergy Mild RASH Verified 05/03/20 23:59 polymyxin B Allergy Mild RASH Verified 05/03/20 23:59 Sulfa (Sulfonamide Allergy Mild RASH Verified 05/03/20 23:59 Antibiotics) Home Medications Medication Instructions Recorded Confirmed Type acetaminophen 650 mg 650 mg PO Q12H PRN 05/23/18 05/04/20 History tablet,extended release aspirin 325 mg tablet 325 mg PO QAM 05/23/18 05/04/20 History azelastine-fluticasone 137 mcg-50 1 sprays INTNAS BID 05/23/18 05/04/20 History mcg/spray nasal spray calcium carbonate 600 mg (1,500 1 cap PO QAM cap 05/23/18 05/04/20 History mg)-vitamin D3 2,500 unit capsule esomeprazole magnesium 40 mg 40 mg PO QAM 05/23/18 05/04/20 History capsule,delayed release glucosamine 750 yw-aeiqqiaso-bzx 1 tab PO QAM tab 05/23/18 05/04/20 History no.7 644 mg-vit V-tgeiom-ynntj tablet ipratropium bromide 0.03 % nasal 2 sprays INTNAS BID 05/23/18 05/04/20 History spray montelukast 10 mg tablet 10 mg PO QPM 05/23/18 05/04/20 History multivitamin 1 tab PO QAM 05/23/18 05/04/20 History atorvastatin 10 mg PO 3XWK 01/26/19 05/04/20 History vitamin E 400 unit PO QAM 01/26/19 05/04/20 History calcium carbonate [Tums Ultra] 400 mg PO DIRECTED PRN 05/10/19 05/04/20 History amlodipine 2.5 mg tablet 2.5 mg PO DAILY #90 tab 03/21/20 05/04/20 Rx sodium chloride 1 gram tablet 1,000 mg PO BID #90 tab 03/21/20 05/04/20 Rx Past Med/Surg History Medical History (Updated 05/04/20 @ 03:33 by Hansel Owens MD) Asthma NO CURRENT INHALER Chronic pain of left knee DVT (deep venous thrombosis) LEFT LEG (WAS TAKING WARFARIN 2011) Factor 5 Leiden mutation, heterozygous GERD (gastroesophageal reflux disease) History of colitis Hypertension Hyponatremia Migraine Osteoarthritis Spinal stenosis Stroke 02/08/2012 (NO CURRENT PROBLEMS) Surgical History History of bilateral tubal ligation History of cataract surgery RT/LEFT History of colonoscopy History of esophagogastroduodenoscopy (EGD) History of surgery on arm RT ARM History of tooth extraction S/P wrist surgery LEFT Family History Mother Family history of diabetes mellitus Aunt Family hx of colon cancer Social History Smoking Status: Never smoker Years Smoked: 3; Number of Years Since Quit: 50; Second Hand Exposure: No; Hx Alcohol Use: Yes Alcohol type: wine Hx Substance Use: No Preferred Language: Uzbek Communication Ability: Effective Visual Impairment: No Limitations Hearing Ability: Normal Claim Manager Required: No Beliefs That Will Affect Care: None marital status: Current Living Situation: Spouse Current Living Situation Comment: With current occupational status: retired Feels Safe at Home: Yes Safety Concerns: Feels Safe At This Time Assistive Devices: Glasses Review of Systems Review of Systems: As per HPI, all 10 systems reviewed, all other ROS negative Physical Exam Physical Exam: GENERAL: Slightly uncomfortable, slightly anxious, no respiratory distress SKIN: Normal color, warm HEENT: [place] palpebral conjunctivae, no ptosis, dry buccal mucosa NECK : Supple, no tenderness CHEST : CTA, no tenderness HEART : Tachycardic, no obvious murmurs ABDOMEN: Some distention, nontender EXTREMITIES : No LE swelling/tenderness, no other conspicuous deformities noted NEUROLOGIC : Coherent, no facial asymmetry, no other gross focality Results & Data Results & Data ([facility]) Vital Signs (Past 12 Hours) Vital Signs Temp Pulse Pulse Resp BP BP Pulse Ox 05/04/20 01:51 112 H 20 144/77 H 100 05/04/20 01:07 110 H 20 150/63 H 95 05/04/20 00:07 37.2 C 107 H 20 172/94 H 96 05/03/20 23:53 96 05/03/20 23:30 39.5 C H 109 H 20 200/107 H 98 05/03/20 23:25 97 Laboratory Results Laboratory Results WBC 8.51 K/uL (4.8-10.8) 05/03/20 23:50 RBC 4.52 M/uL (4.2-5.4) 05/03/20 23:50 Hgb 13.6 g/dL (12.0-16.0) 05/03/20 23:50 Hct 39.0 % (37-47) 05/03/20 23:50 MCV 86.3 fL (80-100) 05/03/20 23:50 MCH 30.1 pg (25-34) 05/03/20 23:50 MCHC 34.9 g/dL (32-36) 05/03/20 23:50 RDW Std Deviation 42.5 fL (36.4-46.3) 05/03/20 23:50 RDW Coeff of Chrissie 13.4 % (11.5-14.5) 05/03/20 23:50 Plt Count 219 K/uL (130-400) 05/03/20 23:50 MPV 11.2 fL (7.4-10.4) H 05/03/20 23:50 Immature Gran % (Auto) 0.1 % 05/03/20 23:50 Neut % (Auto) 85.6 % 05/03/20 23:50 Lymph % (Auto) 7.6 % 05/03/20 23:50 [place] % (Auto) 6.1 % 05/03/20 23:50 Eos % (Auto) 0.4 % 05/03/20 23:50 Baso % (Auto) 0.2 % 05/03/20 23:50 Neut # (Auto) 7.28 K/uL (1.4-6.5) H 05/03/20 23:50 Lymph # (Auto) 0.65 K/uL (1.2-3.4) L 05/03/20 23:50 [place] # (Auto) 0.52 K/uL (0.11-0.59) 05/03/20 23:50 Eos # (Auto) 0.03 K/uL (0-0.5) 05/03/20 23:50 Baso # (Auto) 0.02 K/uL (0-0.2) 05/03/20 23:50 Immature Gran # (Auto) 0.01 K/uL (0.00-0.02) 05/03/20 23:50 PT 10.1 Seconds (9.0-12.0) 05/03/20 23:50 INR 1.0 (0.9-1.1) 05/03/20 23:50 APTT 21.9 Seconds (21.0-31.0) 05/03/20 23:50 PTT Ratio 0.8 05/03/20 23:50 Sodium 133 mmol/L (136-145) L 05/03/20 23:50 Potassium 3.8 mmol/L (3.5-5.1) 05/03/20 23:50 Chloride 100 mmol/L (98-107) 05/03/20 23:50 Carbon Dioxide 27 mmol/L (21-32) 05/03/20 23:50 Anion Gap 7.0 (3-11) 05/03/20 23:50 BUN 21 mg/dl (7-18) H 05/03/20 23:50 Creatinine 0.79 mg/dl (0.6-1.2) 05/03/20 23:50 Est Cr Clr Drug Dosing 59.4 ml/min 05/03/20 23:50 Est GFR ( Amer) 86.1 05/03/20 23:50 Est GFR (Non-Af Amer) 74.3 05/03/20 23:50 BUN/Creatinine Ratio 26.2 (10-20) H 05/03/20 23:50 Glucose 115 mg/dl (70-99) H 05/03/20 23:50 Lactate 1.4 mmol/L (0.4-2.0) 05/03/20 23:50 Calcium 9.3 mg/dl (8.5-10.1) 05/03/20 23:50 Phosphorus 3.1 mg/dl (2.5-4.9) 05/03/20 23:50 Magnesium 1.8 mg/dl (1.8-2.4) 05/03/20 23:50 Total Bilirubin 0.5 mg/dl (0.2-1) 05/03/20 23:50 Direct Bilirubin < 0.1 mg/dl (0-0.2) 05/03/20 23:50 AST 17 U/L (15-37) 05/03/20 23:50 ALT 24 U/L (12-78) 05/03/20 23:50 Alkaline Phosphatase 68 U/L (45-117) 05/03/20 23:50 Troponin I < 0.015 ng/ml (0-0.045) 05/03/20 23:50 Total Protein 7.5 gm/dl (6.4-8.2) 05/03/20 23:50 Albumin 4.1 gm/dl (3.4-5.0) 05/03/20 23:50 Globulin 3.4 gm/dl (2.5-4.0) 05/03/20 23:50 Albumin/Globulin Ratio 1.2 (0.9-2) 05/03/20 23:50 Lipase 182 U/L (73-393) 05/03/20 23:50 COVID-19 Eval Order CovFluRsv at [facility] 05/04/20 01:[address] head initial read: No acute findings. No evidence of fracture or acute intracranial findings. Chest x-ray as per my interpretation atelectasis, elevated right hemidiaphragm EKG as per my interpretation : Rate 105, sinus tachycardia, normal axis, T wave abnormality septal leads
[2020-05-04 02:37] LABS: Influenza A virus by PCR Negative (Neg); Influenza B virus by PCR Negative (Neg); RSV by PCR Negative (Neg); SARS CoV2 RNA(COVID-19) InHosp NEGATIVE (Negative)
[2020-05-04 02:51] LABS: Appearance Urine Clear (Clear); Bacteria Urine Automated Negative (Negative); Bilirubin Urine Negative (Negative); Blood Urine 1+ (Negative); Cast Urine Automated 0 /lpf (0-5); Color Urine Yellow; Epithelial Cell Urine Auto 0-5 /lpf (0-5); Glucose Urine UA Negative (Negative); Ketones Urine Negative (Negative); Leukocyte Esterase Urine Negative (Negative); Nitrite Urine Negative (Negative); Protein Urine Negative (Negative); Specific Gravity Urine 1.013 (1.000-1.030); Urobilinogen Urine Negative (Negative); WBC Urine Automated 0 /hpf (0-5)
[2020-05-04] MEDS: amLODIPine BESYLATE 5 MG TAB PO ONE ×2 (03:20→04:39)
[2020-05-04] MEDS ORDERED: MoRPHine SULFATE 2 MG/ML CARP IV PRN (04:00)
[2020-05-04] MEDS ORDERED: PROMETHAZINE HCL 12.5 MG in SODIUM CHLORIDE 0.9% 50 ML IV PRN (04:00)
[2020-05-04] MEDS ORDERED: LORazepam 0.25 MG/0.5 ML VIAL IV PRN (04:00)
[2020-05-04] MEDS ORDERED: POTASSIUM CHLORIDE CRTAB 20 MEQ TABCR PO STA (04:00)
[2020-05-04] MEDS ORDERED: oxyCODONE HCL IR 5 MG TAB (IMMEDIATE RELEASE) PO PRN (04:00)
[2020-05-04] MEDS ORDERED: ACETAMINOPHEN 325 MG TAB PO STA (04:48)
[2020-05-04 06:08] LABS: Basophils # (auto) 0.03 K/uL (0-0.2); Basophils % (auto) 0.4 %; Hematocrit (blood only) 41.9 % (37-47); Hemoglobin 14.3 g/dL (12.0-16.0); Immature Granulocytes # (auto) 0.01 K/uL (0.00-0.02); Immature Granulocytes % (auto) 0.1 %; Lymphocytes # (auto) 0.44 K/uL (1.2-3.4); Lymphocytes % (auto) 6.6 %; Mean Corpuscular Hemoglobin 29.4 pg (25-34); Mean Corpuscular Hgb Conc 34.1 g/dL (32-36); Mean Platelet Volume 10.5 fL (7.4-10.4); Monocytes # (auto) 0.37 K/uL (0.11-0.59); Monocytes % (auto) 5.5 %; Neutrophils # (auto) 5.84 K/uL (1.4-6.5); Neutrophils % (auto) 87.4 %; Platelet Count 220 K/uL (130-400); RDW Coefficient of Variation 13.3 % (11.5-14.5); RDW Standard Deviation 42.2 fL (36.4-46.3); Red Blood Count 4.87 M/uL (4.2-5.4); White Blood Count 6.69 K/uL (4.8-10.8)
[2020-05-04 06:59] LABS: BUN Creatinine Ratio 19.3 (10-20); Calcium 8.8 mg/dl (8.5-10.1); Creatinine Clr Calc Pharmacy 75.5 ml/min; Est GFR (African American) 100.1; Est GFR (Non-African American) 86.4
--- NOTE | 2020-05-04 07:24 | CT Scan Report ---
CT OF THE HEAD WITHOUT CONTRAST CLINICAL HISTORY: Headache. COMPARISON STUDY: Head CT May 10, 2019. CT DOSE: 909.11 mGy.cm TECHNIQUE: Helical axial images of the head were obtained without IV contrast. Automated exposure con trol was utilized for the study. A dose lowering technique was utilized adhering to the principles o f ALARA. FINDINGS: No acute intracranial hemorrhage, midline shift or mass effect is present. The ventricular system is stable. White matter hypodensities are unchanged and suggest small vessel disease. The basa l cisterns are patent. No extra-axial collections are present. There are no findings to suggest acute dural sinus thrombosis or acute territorial infarct. No significant calvarial abnormalities are pres ent. Visualized portions of the sinuses and mastoid air cells are clear. IMPRESSION: No acute intracranial findings. ACT 112: Negative or not required by law. Electronically signed by: Dewayne Cuba M.D. 05/04/2020 7:22 AM
--- NOTE | 2020-05-04 08:03 | XRay Report ---
XR chest 1V portable CLINICAL HISTORY: SEPSIS COMPARISON STUDY: Chest radiograph September 04, 2019. FINDINGS: Lung volumes are normal. Lungs are clear. There is no pneumothorax or pleural effusion. Car diac size is normal. Mediastinal contours are normal. There is no evidence for pulmonary edema. Kypho tic positioning is noted. Skinfold projects over the left chest. IMPRESSION: No acute cardiopulmonary findings. ACT 112: Negative or not required by law. Electronically signed by: Dewayne Cuba M.D. 05/04/2020 8:01 AM
[2020-05-04] MEDS: ASPIRIN 325 MG ECTAB PO SCH (08:21)
[2020-05-04] MEDS: ENOXAPARIN INJ 30 MG/0.3 ML SYR SQ SCH (08:21)
[2020-05-04] MEDS: PANTOprazole 40 MG TAB PO SCH (08:22)
[2020-05-04] MEDS: MULTIVITAMIN TAB PO SCH (08:22)
--- NOTE | 2020-05-04 09:19 | Electrocardiogram Report ---
Test Reason : Blood Pressure : / mmHG Vent. Rate : 102 BPM Atrial Rate : 102 BPM P-R Int : 168 ms QRS Dur : 074 ms QT Int : 328 ms P-R-T Axes : 068 028 067 degrees QTc Int : 427 ms Poor data quality, interpretation may be adversely affected Sinus tachycardia Left atrial enlargement Abnormal ECG When compared with ECG of 04-SEP-2019 13:42, No significant change was found Confirmed by Lj Esposito ([id number]) on 05/04/2020 9:18:42 AM Referred By: REFERRED SELF Confirmed By:Lj Esposito
[2020-05-04] MEDS: ACETAMINOPHEN 325 MG TAB PO PRN ×2 (10:58→15:52)
--- NOTE | 2020-05-04 15:54 | Hospitalist Progress Note ---
Date of Service May 04, 2020 Assessment & Plan (1) Uncontrolled hypertension: Secondary to flulike illness post COVID-19 vaccination Salt tabs for chronic hyponatremia possibly contributory -- BP improving CT head: negative for acute process -- resume usual medications Possible COVID Vaccine side effect -- nausea/vomiting resolving -- continue supportive care given IV fluids Chronic Hyponatremia -- resume salt tabs hx CVA as per records past history DVT status post anticoagulation chronic interstitial cystitis as per records, urgency symptoms with essentially uninfected UA Hyperglycemia rule out DM -- a1c pending past tobacco abuse PT OT eval DVT prophylaxis Lovenox subcu Full code Admission and Anticipated Discharge Date Admission Date: May 04, 2020 Subjective ff up for possible COVID vaccine reaction seen resting in bed, comfortable very sleepy states she feels very tired no nausea, abdominal pain, chest pain, dyspnea no focal weakness/numbness no other symptoms Review of Systems Review of Systems: All systems reviewed & are unremarkable except as noted in Subjective Physical Exam Physical Exam: General- oriented x 2, not in distress, speaks in sentences with no effort or accessory muscle use Head- atraumatic Eyes- PERRL, EOMI, anicteric ENT- oropharynx clear Neck- supple, no JVD, no adenopathy, no thyromegaly; carotids +2/2, no bruits appreciated Lungs- clear to auscultation bilaterally, no rales/wheezes Heart- normal rate, regular rhythm; no murmur, no gallop, no rub appreciated Abdomen- normal bowel sounds, nondistended, soft, nontender, no masses or hepatosplenomegaly Extremities- no pretibial edema, no calf tenderness; peripheral pulses intact Neuro- alert, oriented x 2; CN 2-12 grossly intact; motor 5/5 bilaterally;sensation 100% on all extremities; no other gross focal neurologic deficits Skin- warm & dry Results & Data Results & Data ([facility]) Vital Signs (Past 12 Hours) Vital Signs Temp Pulse Pulse Pulse Resp BP BP 05/04/20 15:00 36.7 C 88 20 136/73 05/04/20 11:19 37.2 C 99 H 18 144/82 H 05/04/20 07:24 37.0 C 96 H 18 125/76 05/04/20 07:12 102 H 05/04/20 04:05 38.2 C H 113 H 20 151/77 H Pulse Ox 05/04/20 15:00 96 05/04/20 11:19 94 05/04/20 07:24 95 05/04/20 07:12 05/04/20 04:05 99 all noted and reviewed including below
[2020-05-04] MEDS: MONTELUKAST SODIUM 10 MG TABLET PO SCH (20:10)
[2020-05-04] MEDS: SODIUM CHLORIDE 1 GM TABLET PO SCH (20:10)
[2020-05-05 07:09] LABS: Estimated Average Glucose 114 mg/dl; Hemoglobin A1C 5.6 % (4.5-5.6)
[2020-05-05] MEDS: MULTIVITAMIN TAB PO SCH (08:30)
[2020-05-05] MEDS: ENOXAPARIN INJ 30 MG/0.3 ML SYR SQ SCH (08:30)
[2020-05-05] MEDS: ASPIRIN 325 MG ECTAB PO SCH (08:30)
[2020-05-05] MEDS: PANTOprazole 40 MG TAB PO SCH (08:31)
[2020-05-05] MEDS: SODIUM CHLORIDE 1 GM TABLET PO SCH ×2 (08:31→20:48)
[2020-05-05] MEDS ORDERED: ATORVASTATIN 10 MG TAB PO SCH (09:00)
[2020-05-05] MEDS ORDERED: amLODIPine BESYLATE 5 MG TAB PO SCH (09:00)
[2020-05-05 11:02] LABS: Basophils # (auto) 0.04 K/uL (0-0.2); Hematocrit (blood only) 40.3 % (37-47); Hemoglobin 13.8 g/dL (12.0-16.0); Immature Granulocytes # (auto) 0.01 K/uL (0.00-0.02); Immature Granulocytes % (auto) 0.3 %; Lymphocytes # (auto) 0.89 K/uL (1.2-3.4); Lymphocytes % (auto) 22.9 %; Mean Corpuscular Hemoglobin 29.9 pg (25-34); Mean Corpuscular Hgb Conc 34.2 g/dL (32-36); Mean Corpuscular Volume 87.2 fL (80-100); Mean Platelet Volume 11.2 fL (7.4-10.4); Monocytes # (auto) 0.36 K/uL (0.11-0.59); Monocytes % (auto) 9.3 %; Neutrophils # (auto) 2.59 K/uL (1.4-6.5); Neutrophils % (auto) 66.5 %; Platelet Count 206 K/uL (130-400); RDW Coefficient of Variation 13.6 % (11.5-14.5); RDW Standard Deviation 43.5 fL (36.4-46.3); Red Blood Count 4.62 M/uL (4.2-5.4); White Blood Count 3.89 K/uL (4.8-10.8)
[2020-05-05 11:27] LABS: Albumin Level 3.3 gm/dl (3.4-5.0); BUN Creatinine Ratio 17.3 (10-20); Calcium 8.3 mg/dl (8.5-10.1); Creatinine Clr Calc Pharmacy 70.9 ml/min; Est GFR (African American) 94.7; Est GFR (Non-African American) 81.7; Potassium 3.7 mmol/L (3.5-5.1)
[2020-05-05 11:30] LABS: Albumin Globulin Ratio 1.1 (0.9-2); Bilirubin,Total 0.4 mg/dl (0.2-1); Globulin 3.1 gm/dl (2.5-4.0); Total Protein 6.4 gm/dl (6.4-8.2)
--- NOTE | 2020-05-05 13:34 | Hospitalist Progress Note ---
Date of Service Delayed entry Date of service noted below May 05, 2020 Assessment & Plan (1) Uncontrolled hypertension: Weakness Secondary to flulike illness post COVID-19 vaccination Salt tabs for chronic hyponatremia possibly contributory -- BP improving CT head: negative for acute process -- resumed usual medications --Clinically improving overall, continue PT and OT evaluation Possible COVID Vaccine side effects -- nausea/vomiting resolving -- continue supportive care given IV fluids Chronic Hyponatremia -- resumed salt tabs Sodium level stable-135 hx CVA as per records --No focal neurologic deficits past history DVT status post anticoagulation --Lovenox subcutaneous daily chronic interstitial cystitis as per records --No urinary symptoms Hyperglycemia rule out DM -- a1c 5.6 past tobacco abuse PT OT eval progress DVT prophylaxis Lovenox subcu Full code plan of care discussed with patient in detail and at length all questions answered She is understanding, agreeable, comfortable with the plan of care Admission and Anticipated Discharge Date Admission Date: May 04, 2020 Subjective ff up for weakness, Covid vaccine side effect Seen resting in bed, sitting up, comfortable States her weakness is improving day by day Denies headache, dizziness, chest pain, shortness of breath, abdominal pain, problems with urination or bowel movement No other symptoms Review of Systems Review of Systems: All systems reviewed & are unremarkable except as noted in Subjective Physical Exam Physical Exam: General- oriented x 3, not in distress, speaks in sentences with no effort or accessory muscle use Eyes- anicteric Neck- no JVD Lungs- clear breath sounds bilaterally, no wheezing, no crackles bilaterally Heart- normal rate, regular rhythm; no murmurs Abdomen- normal bowel sounds, nondistended, soft, nontender Extremities- no pretibial edema, no calf tenderness Neuro- alert, oriented x 3; no gross focal neurologic deficits Skin- warm & dry Results & Data Results & Data ([facility]) Vital Signs (Past 12 Hours) Vital Signs Temp Pulse Pulse Resp BP Pulse Ox 05/05/20 11:42 36.3 C L 81 20 102/67 90 05/05/20 07:43 37.2 C 90 18 156/80 H 93 05/05/20 07:33 90 05/05/20 04:00 37.0 C 95 H 18 136/73 94 all noted and reviewed including below
[2020-05-05] MEDS: SODIUM CHLORIDE 0.9% 1000ML 1,000 ML IV SCH (13:52)
[2020-05-05] MEDS ORDERED: SODIUM CHLORIDE 0.9% 1000ML 500 ML IV ONE (14:32)
[2020-05-05] MEDS: MONTELUKAST SODIUM 10 MG TABLET PO SCH (20:48)
[2020-05-05] MEDS: ACETAMINOPHEN 325 MG TAB PO PRN (23:35)
[2020-05-06] MEDS: ACETAMINOPHEN 325 MG TAB PO PRN (05:55)
[2020-05-06] MEDS: SODIUM CHLORIDE 0.9% 1000ML 1,000 ML IV SCH (05:55)
[2020-05-06] MEDS: SODIUM CHLORIDE 1 GM TABLET PO SCH (07:55)
[2020-05-06] MEDS: ASPIRIN 325 MG ECTAB PO SCH (07:55)
[2020-05-06] MEDS: PANTOprazole 40 MG TAB PO SCH (07:55)
[2020-05-06] MEDS: MULTIVITAMIN TAB PO SCH (07:55)
[2020-05-06] MEDS: ENOXAPARIN INJ 30 MG/0.3 ML SYR SQ SCH (07:56)
--- NOTE | 2020-05-06 18:14 | Hospitalist Progress Note ---
Date of Service May 06, 2020 Assessment & Plan (1) Uncontrolled hypertension: Weakness, nausea and vomiting Secondary to flulike illness post COVID-19 vaccination Infection ruled out --Patient presented with severe weakness, fatigue --Covid PCR, flu PCR, RSV PCR: Negative CT head: negative for acute process Urinalysis: No signs of infection Blood cultures: Negative --Given supportive care, including IV fluids --Symptoms including elevated blood pressure, weakness, nausea and vomiting resolved -- resumed usual medications --Clinically improving overall, ambulated in the hallways with no problems Mild leukopenia --WBC 3.89 ANC within normal limits --Repeat CBC on follow-up with PCP this week Microscopic hematuria --UA positive for 5-10 RBCs Repeat urinalysis and follow-up as an outpatient Chronic Hyponatremia -- resumed salt tabs Sodium level stable-135 hx CVA as per records --No focal neurologic deficits past history DVT status post anticoagulation --Lovenox subcutaneous daily was given chronic interstitial cystitis as per records --No urinary symptoms Disposition Discharge to home Follow-up with PCP within 1 week plan of care discussed with patient and her at the bedside in detail and at length all questions answered They are understanding, agreeable, comfortable with the plan of care Admission and Anticipated Discharge Date Admission Date: May 04, 2020 Subjective Follow-up for weakness, likely post Covid vaccine side effects Seen sitting up in bed, comfortable, not in distress Patient's at the bedside visiting States she feels much better today overall Ambulating in her room with no problems Strength is also almost back to baseline Has occasional mild headaches, resolved, no dizziness, chest pain, palpitations, shortness of breath, abdominal pain, problems with urination or bowel movement No other symptoms Ambulating the hallways with [employer] No problems, symptoms States she is ready and like to be discharged today Review of Systems Review of Systems: All systems reviewed & are unremarkable except as noted in Subjective Physical Exam Physical Exam: General- oriented x 3, not in distress, speaks in sentences with no effort or accessory muscle use Eyes- anicteric Neck- no JVD Lungs- clear BS bilaterally, no crackles Heart- normal rate, regular rhythm; no murmurs Abdomen- normal bowel sounds, nondistended, soft, nontender Extremities- no pretibial edema, no calf tenderness Neuro- alert, oriented x 3; no gross focal neurologic deficits Skin- warm & dry Results & Data Results & Data ([facility]) Vital Signs (Past 12 Hours) Vital Signs Temp Pulse Pulse Resp BP BP Pulse Ox 05/06/20 18:00 36.9 C 80 18 139/84 96 05/06/20 15:26 78 05/06/20 14:47 36.9 C 80 18 139/84 96 05/06/20 11:35 36.8 C 72 17 117/73 96 05/06/20 08:00 74 05/06/20 06:59 37.1 C 75 18 136/73 95 all noted and reviewed including below
--- NOTE | 2020-05-06 18:37 | Discharge Summary ---
Date of Service May 06, 2020 Admission HPI Per Admitting Provider History obtained from patient and records. Medical history significant for hypertension, CVA, chronic hyponatremia, past history DVT status post anticoagulation, history heterozygous factor V Leiden mutation as per records, chronic interstitial cystitis as per records, past tobacco abuse. Last confinement May 2019 for generalized weakness post shingles vaccine administration. Patient received her second dose of COVID-19 vaccine yesterday. Later at home in the afternoon patient noted generalized weakness, followed by fever, chills, nausea, vomiting symptoms without abdominal pain. No constipation or diarrhea symptoms. Patient denies chest pain, cough, S OB symptoms. Feeling lightheaded when achy bitemporal headache symptoms. Urinary urgency as per patient. SBP upon arrival at the ER 200s. 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 Admission Exam Per Admitting Provider GENERAL: Slightly uncomfortable, slightly anxious, no respiratory distress SKIN: Normal color, warm HEENT: [place] palpebral conjunctivae, no ptosis, dry buccal mucosa NECK : Supple, no tenderness CHEST : CTA, no tenderness HEART : Tachycardic, no obvious murmurs ABDOMEN: Some distention, nontender EXTREMITIES : No LE swelling/tenderness, no other conspicuous deformities noted NEUROLOGIC : Coherent, no facial asymmetry, no other gross focality Principal Diagnosis Weakness, secondary to Covid vaccine side effect Discharge Exam General- oriented x 3, not in distress, speaks in sentences with no effort or accessory muscle use Eyes- anicteric Neck- no JVD Lungs- clear BS bilaterally, no crackles Heart- normal rate, regular rhythm; no murmurs Abdomen- normal bowel sounds, nondistended, soft, nontender Extremities- no pretibial edema, no calf tenderness Neuro- alert, oriented x 3; no gross focal neurologic deficits Skin- warm & dry Discharge Data Allergies Allergy/AdvReac Type Severity Reaction Status Date / Time indomethacin Allergy Intermediate "FEEL Verified 05/03/20 23:59 STRANGE AND OUT OF IT" adhesive Allergy Mild RASH WITH Verified 05/03/20 23:59 EXTENDED USE bacitracin Allergy Mild RASH Verified 05/03/20 23:59 latex Allergy Mild RASH WITH Verified 05/03/20 23:59 LONGER EXPOSURE neomycin Allergy Mild RASH Verified 05/03/20 23:59 polymyxin B Allergy Mild RASH Verified 05/03/20 23:59 Sulfa (Sulfonamide Allergy Mild RASH Verified 05/03/20 23:59 Antibiotics) Consultations 05/04/20 01:21 ED Decision to Admit Stat Ordered Studies 05/04/20 02:05 CT head/brain wo con Urgent FINDINGS: No acute intracranial hemorrhage, midline shift or mass effect is present. The ventricular system is stable. White matter hypodensities are unchanged and suggest small vessel disease. The basal cisterns are patent. No extra-axial collections are present. There are no findings to suggest acute dural sinus thrombosis or acute territorial infarct. No significant calvarial abnormalities are present. Visualized portions of the sinuses and mastoid air cells are clear. IMPRESSION: No acute intracranial findings. Chest x-ray: FINDINGS: Lung volumes are normal. Lungs are clear. There is no pneumothorax or pleural effusion. Cardiac size is normal. Mediastinal contours are normal. There is no evidence for pulmonary edema. Kyphotic positioning is noted. [place]infold projects over the left chest. IMPRESSION: No acute cardiopulmonary findings. Hospital Course (1) Uncontrolled hypertension: Weakness, nausea and vomiting Secondary to flulike illness post COVID-19 vaccination Infection ruled out --Patient presented with severe weakness, fatigue --Covid PCR, flu PCR, RSV PCR: Negative CT head: negative for acute process Urinalysis: No signs of infection Blood cultures: Negative --Given supportive care, including IV fluids --Symptoms including elevated blood pressure, weakness, nausea and vomiting resolved -- resumed usual medications --Clinically improving overall, ambulated in the hallways with no problems Mild leukopenia --WBC 3.89 ANC within normal limits --Repeat CBC on follow-up with PCP this week Microscopic hematuria --UA positive for 5-10 RBCs Repeat urinalysis and follow-up as an outpatient Chronic Hyponatremia -- resumed salt tabs Sodium level stable-135 hx CVA as per records --No focal neurologic deficits past history DVT status post anticoagulation --Lovenox subcutaneous daily was given chronic interstitial cystitis as per records --No urinary symptoms Disposition Discharge to home Follow-up with PCP within 1 week plan of care discussed with patient and her at the bedside in detail and at length all questions answered They are understanding, agreeable, comfortable with the plan of care Total Time Total Time Spent Total Time Spent (In Minutes): 40 minutes Discharge Plan Discharge Items Patient Disposition: Home - Self-Care Reason For Visit: UNCONTROLLED HTN Discharge Diagnosis: Weakness likely secondary to Covid vaccine side effects Activity: Resume your previous activity Activity Comment: Gradually increase as tolerated Driving/Machine Use: No driving, until reevaluated and allowed by primary care physician Non-emergency contact: Primary Care Provider Call non-emergency contact if: you have any medication questions, your symptoms worsen, your pain is not controlled, your pain is worsening, your pain is unusual for you, your pain is concerning for you and you have a fever Follow-up/Referrals: Magda Taylor DO [Primary Care Provider] - Diet: Heart Healthy Addtl Attending Provider Instructions: Please continue to drink plenty of fluids. Ambulate at home as much as you can to prevent blood clots. Resume your usual medications. Follow-up with Dr. Taylor within 1 week. [facility] will be calling you soon for the appointment schedule. Call your primary care physician or return to the ER immediately if with worsening of symptoms. Pending Studies at Discharge: Yes Studies:: Repeat blood work-complete blood count-and urinalysis on follow-up with visit with primary care physician. Stand-Alone Forms: My [facility] Prediculous, Smoking Cessation Medications and DC Order Prescriptions: Continued acetaminophen [Tylenol Arthritis Pain] 650 mg tablet extended release 650 mg PO Q12H PRN (Reason: Pain) RF: 0 Dymista 137-50 mcg/spray spray,non-aerosol 1 sprays INTNAS BID RF: 0 aspirin 325 mg tablet 325 mg PO QAM RF: 0 esomeprazole magnesium [Nexium] 40 mg capsule,delayed release(DR/EC) 40 mg PO QAM RF: 0 [id number] mg tablet 1 tab PO QAM RF: 0 ipratropium bromide 0.03 % spray,non-aerosol 2 sprays INTNAS BID RF: 0 montelukast [Singulair] 10 mg tablet 10 mg PO QPM RF: 0 multivitamin tablet 1 tab PO QAM RF: 0 calcium carbonate-vitamin D3 600 mg (1,500 mg)-2,500 unit capsule 1 cap PO QAM RF: 0 amlodipine 2.5 mg tablet 2.5 mg PO DAILY Qty: 90 RF: 3 sodium chloride 1 gram tablet 1,000 mg PO BID Qty: 90 RF: 5 calcium carbonate [Tums Ultra] 400 mg calcium (1,000 mg) Tablet,Chewable 400 mg PO DIRECTED PRN (Reason: Gi Upset) RF: 0 atorvastatin 10 mg Tablet 10 mg PO 3XWK RF: 0 vitamin E 400 unit Capsule 400 unit PO QAM RF: 0 Discharge Orders: Discharge Order (Routine); Ordered 05/06/20 Ordered By: Tramaine Rodriguez Admission Data Admit Date/Time: 05/04/20 15:54 Attending Provider: Tramaine Rodriguez Admit Provider: Hansel Owens Primary Care Provider: Magda Taylor Other Providers: Hansel Owens ; [facility] ; [facility] Other Interventions: Discharge Summary Assessment (RN) Last Done: 05/06/20 18:00
== END 2020-05-06 19:57 | disposition home or self-care (01) ==
LOC: ED 23:22 → 2N 23:22

== ENCOUNTER 2020-12-26 03:25 | Observation (INO) ==
[2020-12-26] MEDS ORDERED: SODIUM CHLORIDE 0.9% 1000ML 1,000 ML IV SCH ×2 (04:00→13:37)
[2020-12-26 04:36] LABS: Basophils # (auto) 0.02 K/uL (0-0.2); Basophils % (auto) 0.2 %; Eosinophils # (auto) 0.09 K/uL (0-0.5); Hematocrit (blood only) 39.8 % (37-47); Hemoglobin 13.7 g/dL (12.0-16.0); Immature Granulocytes # (auto) 0.02 K/uL (0.00-0.02); Immature Granulocytes % (auto) 0.2 %; Lymphocytes # (auto) 0.87 K/uL (1.2-3.4); Mean Corpuscular Hemoglobin 30.2 pg (25-34); Mean Corpuscular Hgb Conc 34.4 g/dL (32-36); Mean Corpuscular Volume 87.7 fL (80-100); Mean Platelet Volume 11.2 fL (7.4-10.4); Monocytes # (auto) 0.58 K/uL (0.11-0.59); Monocytes % (auto) 6.7 %; Neutrophils % (auto) 81.9 %; Platelet Count 220 K/uL (130-400); RDW Coefficient of Variation 12.5 % (11.5-14.5); RDW Standard Deviation 40.6 fL (36.4-46.3); Red Blood Count 4.54 M/uL (4.2-5.4); White Blood Count 8.68 K/uL (4.8-10.8)
[2020-12-26 04:43] LABS: Partial Thromboplastin Time 26.9 Seconds (21.0-31.0); Prothrombin Time 9.9 Seconds (9.0-12.0)
[2020-12-26 04:49] LABS: Alanine Aminotransferase 16 U/L (12-78); Albumin Level 3.5 gm/dl (3.4-5.0); Aspartate Aminotransferase 18 U/L (15-37); BUN Creatinine Ratio 22.1 (10-20); Blood Urea Nitrogen 17 mg/dl (7-18); Calcium 9.2 mg/dl (8.5-10.1); Carbon Dioxide 27 mmol/L (21-32); Chloride 98 mmol/L (98-107); Est GFR (African American) 86.8 ml/min; Est GFR (Non-African American) 74.9 ml/min; Glucose 111 mg/dl (70-99); Magnesium 1.8 mg/dl (1.8-2.4); Potassium 3.8 mmol/L (3.5-5.1); Sodium 131 mmol/L (136-145)
[2020-12-26 04:54] LABS: Albumin Globulin Ratio 0.9 (0.9-2); Alkaline Phosphatase 77 U/L (45-117); Bilirubin,Total 0.4 mg/dl (0.2-1); Total Protein 7.5 gm/dl (6.4-8.2); Troponin I < 0.015 ng/ml (0-0.045)
--- NOTE | 2020-12-26 05:08 | Emergency Department Note ---
History of Present Illness General Chief complaint: Illness Stated complaint: ILLNESS Time Seen by Provider: 12/26/20 03:52 Source: patient and family Mode of arrival: EMS Limitations: no limitations History of Present Illness Provider complaint: Weakness, fever Onset (ago): hour(s) 3 Associated symptoms: + fever/chills, + loss of appetite, + malaise and + weakness; no headaches, no nausea/vomiting or no shortness of breath Treatments prior to arrival: none This is a 75-year-old female who presents via EMS from home with her due to concern for worsening weakness and fevers. states that yesterday they both received their Covid booster. He states she seemed well through the day, ate dinner normally and then stated she wanted to go to bed early because she did not feel well. Patient states at that time she just felt tired, did not have any overt pain, fevers or chills. At 1 to 1:30 AM she awoke to go to the bathroom. states he heard her get up and go to the bathroom however she did not return. He began watching the clock and after 40 minutes went into check on her when she stated she was too weak to get up off the toilet. She denies any overt pain, states she feels too weak to walk as though she may fall. States she feels slightly lightheaded but denies headaches, chest pain, abdominal pain. No other recent illness or known sick contacts. No other change in medications. Patient denies any cough or trouble breathing. He states she has had significant adverse reactions to prior vaccinations also resulting in hospitalization. Pt seen during a time of high acuity and national emergency pandemic while wearing PPE. Home Medications Medication Instructions Recorded Confirmed Type acetaminophen 650 mg 650 mg PO Q12H PRN 05/23/18 12/26/20 History tablet,extended release (Tylenol Arthritis Pain) aspirin 325 mg tablet 325 mg PO QAM 05/23/18 12/26/20 History calcium carbonate 600 mg (1,500 1 cap PO QAM cap 05/23/18 12/26/20 History mg)-vitamin D3 2,500 unit capsule esomeprazole magnesium 40 mg 40 mg PO QAM 05/23/18 12/26/20 History capsule,delayed release (Nexium) glucosamine 750 uk-meutxzfhw-[id number] 1 tab PO QAM tab 05/23/18 12/26/20 History no.7 644 mg-vit V-yvmvrh-wulhp tablet ipratropium bromide 21 mcg (0.03 2 sprays INTNAS BID 05/23/18 12/26/20 History %) nasal spray montelukast 10 mg tablet 10 mg PO HS 05/23/18 12/26/20 History (Singulair) multivitamin 1 tab PO QAM 05/23/18 12/26/20 History vitamin E 400 unit capsule 400 unit PO QAM 01/26/19 12/26/20 History calcium carbonate 400 mg calcium 400 mg PO DIRECTED PRN 05/10/19 12/26/20 History (1,000 mg) chewable tablet (Tums Ultra) amlodipine 2.5 mg tablet 2.5 mg PO DAILY #90 tab 03/21/20 12/26/20 Rx sodium chloride 1 gram tablet 1,000 mg PO BID #90 tab 03/21/20 12/26/20 Rx fluticasone propionate 50 2 spray INTRANASAL BID 07/29/20 12/26/20 History mcg/actuation nasal spray,suspension atorvastatin 10 mg tablet 10 mg PO MOWEFR tab 10/31/20 12/26/20 History albuterol sulfate 90 mcg/actuation 2 puff INHALATION QID PRN 12/26/20 12/26/20 History aerosol inhaler Allergies Allergy/AdvReac Type Severity Reaction Status Date / Time indomethacin Allergy Intermediate "FEEL Verified 12/26/20 08:03 STRANGE AND OUT OF IT" adhesive Allergy Mild RASH WITH Verified 12/26/20 08:03 EXTENDED USE bacitracin Allergy Mild RASH Verified 12/26/20 08:03 latex Allergy Mild RASH WITH Verified 12/26/20 08:03 LONGER EXPOSURE neomycin Allergy Mild RASH Verified 12/26/20 08:03 polymyxin B Allergy Mild RASH Verified 12/26/20 08:03 Sulfa (Sulfonamide Allergy Mild RASH Verified 12/26/20 08:03 Antibiotics) Past Med/Surg History Medical History Asthma NO CURRENT INHALER Chronic pain of left knee DVT (deep venous thrombosis) LEFT LEG (WAS TAKING WARFARIN 2011) Factor 5 Leiden mutation, heterozygous GERD (gastroesophageal reflux disease) History of colitis Hyperlipidemia Hypertension Hyponatremia Osteoarthritis Spinal stenosis Transient ischemic attack (TIA) 02/08/2012 (NO CURRENT PROBLEMS) Surgical History History of bilateral tubal ligation History of cataract surgery RT/LEFT History of colonoscopy History of esophagogastroduodenoscopy (EGD) History of surgery on arm RT ARM History of tooth extraction S/P wrist surgery LEFT Family History Mother Family history of diabetes mellitus Aunt Family hx of colon cancer Other No family history of adverse response to anesthesia Social History Smoking Status: Former smoker Years Smoked: 3; Number of Years Since Quit: 50; Second Hand Exposure: No; Do You Dip or Chew Tobacco: No; Hx Alcohol Use: No Hx Substance Use: No Preferred Language: Korean Communication Ability: Effective Visual Impairment: No Limitations Hearing Ability: Normal Veneer Splicer Required: No Beliefs That Will Affect Care: None marital status: Current Living Situation: Spouse Current Living Situation Comment: With current occupational status: retired Other Information That Helps Us Care for You: No Feels Safe at Home: Yes Safety Concerns: Feels Safe At This Time Assistive Devices: Wheelchair Review of Systems A total of 10 systems reviewed and were otherwise negative All systems reviewed & are unremarkable except as noted in HPI & below Physical Exam Vital Signs Vital Signs - 24 hr 12/26/20 03:33 12/26/20 04:08 12/26/20 04:27 Temperature 38.4 C H Temperature Source Oral Pulse Rate 107 H 102 H Pulse Rate [Finger] 102 H Respiratory Rate 16 18 18 Respiratory Effort / Characteristics Non-Labored Spontaneous Respiratory Depth Normal Respiratory Pattern Regular Blood Pressure 172/98 H Blood Pressure [Right Arm] 161/88 H Blood Pressure Mean 122 Blood Pressure Mean [Right Arm] 112 Pulse Oximetry 97 98 97 Oxygen Delivery Method Room Air Room Air Sepsis Recent Fever Within 48 Hours Yes Sepsis New/Unexplained Change in Mental Status No Sepsis Action Taken by Nursing No Action Required 12/26/20 05:37 12/26/20 06:16 12/26/20 06:32 Temperature 37 C Temperature Source Oral Pulse Rate Pulse Rate [Finger] 102 H 98 H Respiratory Rate 18 18 Respiratory Effort / Characteristics Respiratory Depth Respiratory Pattern Blood Pressure Blood Pressure [Right Arm] 145/94 H 160/87 H Blood Pressure Mean Blood Pressure Mean [Right Arm] 111 111 Pulse Oximetry 97 97 Oxygen Delivery Method Sepsis Recent Fever Within 48 Hours Sepsis New/Unexplained Change in Mental Status Sepsis Action Taken by Nursing GENERAL: alert, ill appearing, well nourished, no distress, non-toxic EYE EXAM: normal conjunctiva, PERRL and EOM's grossly intact OROPHARYNX: no exudate, no erythema, lips, buccal mucosa, and tongue normal and mucous membranes are moist NECK: supple, no nuchal rigidity, no adenopathy, non-tender LUNGS: Clear to auscultation. Normal chest wall mechanics, no w/r/r HEART: no murmurs, S1 normal and S2 normal ABDOMEN: abdomen soft, non-tender, normo-active bowel sounds, no masses, no rebound or guarding. BACK: Back is symmetrical on inspection and there is no deformity, no midline tenderness, no CVA tenderness. SKIN: no rashes and no bruising UPPER EXTREMITIES: upper extremities are grossly normal. FROM, nml pulses b/l. LOWER EXTREMITIES: No pitting edema. FROM, nml pulses b/l. NEURO EXAM: Normal sensorium, cranial nerves II-XII grossly intact, normal speech, generalized weakness b/l UE and LE. Shuffling gait requiring significant assistance. Gross sensation intact. Course Course 0702: Pt awake and alert, states she is feeling improved. IV fluids still infusing. Will try p.o. challenge and then ambulatory trial. 0752: Patient unable to stand at bedside. Fever improved. States no appetite. Administered Medications Discontinued Medications Acetaminophen (Acetaminophen 325 Mg Tab) 650 mg PO Q4H PRN PRN Reason: Moderate Pain Stop: 01/25/21 13:36 Last Admin: 12/27/20 02:19 Dose: 650 mg Documented by: [id number] Acetaminophen (Acetaminophen 325 Mg Tab) 650 mg PO NOW STA Stop: 12/27/20 02:12 Last Admin: 12/27/20 02:21 Dose: Not Given Documented by: [id number] Amlodipine Besylate (Amlodipine Besylate 5 Mg Tab) 2.5 mg PO DAILY JEANMARIE Stop: 01/25/21 13:36 Last Admin: 12/27/20 08:09 Dose: 2.5 mg Documented by: [id number] Admin: 12/26/20 14:40 Dose: Not Given Documented by: [id number] Aspirin (Aspirin 325 Mg Ectab) 325 mg PO QAM JEANMARIE Stop: 01/25/21 13:36 Last Admin: 12/27/20 08:10 Dose: 325 mg Documented by: [id number] Admin: 12/26/20 14:41 Dose: Not Given Documented by: [id number] Fluticasone Propionate (Fluticasone Propionate Na Spr 16 Gm Btl) 2 sprays NA BID JEANMARIE Stop: 01/25/21 13:36 Last Admin: 12/27/20 08:10 Dose: 2 sprays Documented by: [id number] Admin: 12/26/20 20:58 Dose: Not Given Documented by: [id number] Admin: 12/26/20 14:41 Dose: Not Given Documented by: [id number] Sodium Chloride (Nss 1000ml) 1,000 mls @ 125 mls/hr IV .Q8H JEANMARIE Stop: 12/26/20 11:59 Last Infusion: 12/26/20 12:36 Dose: 0 mls/hr Documented by: [id number] Admin: 12/26/20 04:32 Dose: 125 mls/hr Documented by: [id number] Acetaminophen (Ofirmev) 1,000 mg in 100 mls @ 400 mls/hr IV NOW STA Stop: 12/26/20 06:05 Last Infusion: 12/26/20 06:19 Dose: 0 mls/hr Documented by: [id number] Admin: 12/26/20 06:03 Dose: 400 mls/hr Documented by: [id number] Sodium Chloride (Nss 1000ml) 1,000 mls @ 80 mls/hr IV .[id number] JEANMARIE Stop: 12/27/20 02:06 Last Infusion: 12/27/20 02:15 Dose: 0 mls/hr Documented by: [id number] Admin: 12/26/20 14:53 Dose: 80 mls/hr Documented by: [id number] Acetaminophen (Ofirmev) 1,000 mg in 100 mls @ 400 mls/hr IV NOW STA Stop: 12/26/20 20:43 Last Infusion: 12/26/20 21:13 Dose: 0 mls/hr Documented by: [id number] Admin: 12/26/20 20:56 Dose: 400 mls/hr Documented by: [id number] Miscellaneous (Order Awaiting Action: Ipratropium [place] 0.03 % [place],Non- Aerosol) 1 ea N/A QS JEANMARIE Stop: 01/25/21 15:59 Last Admin: 12/27/20 16:03 Dose: Not Given Documented by: [id number] Admin: 12/27/20 08:09 Dose: Not Given Documented by: [id number] Admin: 12/26/20 21:13 Dose: Not Given Documented by: [id number] Admin: 12/26/20 15:18 Dose: Not Given Documented by: [id number] Montelukast Sodium (Montelukast Sodium 10 Mg Tablet) 10 mg PO HS JEANMARIE Stop: 01/25/21 20:59 Last Admin: 12/26/20 20:58 Dose: Not Given Documented by: [id number] Pantoprazole Sodium (Pantoprazole 40 Mg Tab) 40 mg PO QAM [facility] Stop: 01/26/21 08:59 Last Admin: 12/27/20 08:11 Dose: 40 mg Documented by: [id number] Potassium Chloride (Potassium Chloride Crtab 20 Meq Tabcr) 20 meq PO NOW STA Stop: 12/27/20 09:46 Last Admin: 12/27/20 10:29 Dose: 20 meq Documented by: [id number] Sodium Chloride (Sodium Chloride 1 Gm Tablet) 1 gm PO BID JEANMARIE Stop: 01/25/21 13:36 Last Admin: 12/27/20 08:09 Dose: 1 gm Documented by: [id number] Admin: 12/26/20 20:58 Dose: Not Given Documented by: [id number] Admin: 12/26/20 14:41 Dose: Not Given Documented by: [id number] Medical Decision Making Differential Diagnosis Differential Diagnosis includes but is not limited to dehydration, stroke, anemia, hypoglycemia, hyponatremia, hypernatremia, urinary tract infection, pneumonia, bronchitis, sepsis, gastroenteritis, additional abdominal pathology, metabolic abnormalities and infections. Medical Records Attestation: I reviewed the patient's medical records. Home Medications Current Medication List: was personally reviewed by me Laboratory Data Attestation: I reviewed the patient's lab results. Result diagrams: 12/27/20 05:55 12/27/20 05:55 Lab Results 12/26/20 12/26/20 12/26/20 Range/Units 04:20 04:20 04:20 WBC 8.68 (4.8-10.8) K/uL RBC 4.54 (4.2-5.4) M/uL Hgb 13.7 (12.0-16.0) g/dL Hct 39.8 (37-47) % MCV 87.7 (80-100) fL MCH 30.2 (25-34) pg MCHC 34.4 (32-36) g/dL RDW Std Deviation 40.6 (36.4-46.3) fL RDW Coeff of Chrissie 12.5 (11.5-14.5) % Plt Count 220 (130-400) K/uL MPV 11.2 H (7.4-10.4) fL Immature Gran % (Auto) 0.2 % Neut % (Auto) 81.9 % Lymph % (Auto) 10.0 % Kimble % (Auto) 6.7 % Eos % (Auto) 1.0 % Baso % (Auto) 0.2 % Neut # (Auto) 7.10 H (1.4-6.5) K/uL Lymph # (Auto) 0.87 L (1.2-3.4) K/uL Kimble # (Auto) 0.58 (0.11-0.59) K/uL Eos # (Auto) 0.09 (0-0.5) K/uL Baso # (Auto) 0.02 (0-0.2) K/uL Immature Gran # (Auto) 0.02 (0.00-0.02) K/uL PT 9.9 (9.0-12.0) Seconds INR 1.0 (0.9-1.1) APTT 26.9 (21.0-31.0) Seconds PTT Ratio 1.0 Sodium 131 L (136-145) mmol/L Potassium 3.8 (3.5-5.1) mmol/L Chloride 98 (98-107) mmol/L Carbon Dioxide 27 (21-32) mmol/L Anion Gap 6.0 (3-11) BUN 17 (7-18) mg/dl Creatinine 0.78 (0.6-1.2) mg/dl Est Cr Clr Drug Dosing Not Reportable Est GFR ( Amer) 86.8 ml/min Est GFR (Non-Af Amer) 74.9 ml/min BUN/Creatinine Ratio 22.1 H (10-20) Glucose 111 H (70-99) mg/dl Lactate (0.4-2.0) mmol/L Calcium 9.2 (8.5-10.1) mg/dl Magnesium 1.8 (1.8-2.4) mg/dl Total Bilirubin 0.4 (0.2-1) mg/dl AST 18 (15-37) U/L ALT 16 (12-78) U/L Alkaline Phosphatase 77 (45-117) U/L Troponin I < 0.015 (0-0.045) ng/ml Total Protein 7.5 (6.4-8.2) gm/dl Albumin 3.5 (3.4-5.0) gm/dl Globulin 4.0 (2.5-4.0) gm/dl Albumin/Globulin Ratio 0.9 (0.9-2) Procalcitonin (0-0.5) ng/ml 12/26/20 12/26/20 Range/Units 04:20 04:20 WBC (4.8-10.8) K/uL RBC (4.2-5.4) M/uL Hgb (12.0-16.0) g/dL Hct (37-47) % MCV (80-100) fL MCH (25-34) pg MCHC (32-36) g/dL RDW Std Deviation (36.4-46.3) fL RDW Coeff of Chrissie (11.5-14.5) % Plt Count (130-400) K/uL MPV (7.4-10.4) fL Immature Gran % (Auto) % Neut % (Auto) % Lymph % (Auto) % Kimble % (Auto) % Eos % (Auto) % Baso % (Auto) % Neut # (Auto) (1.4-6.5) K/uL Lymph # (Auto) (1.2-3.4) K/uL Kimble # (Auto) (0.11-0.59) K/uL Eos # (Auto) (0-0.5) K/uL Baso # (Auto) (0-0.2) K/uL Immature Gran # (Auto) (0.00-0.02) K/uL PT (9.0-12.0) Seconds INR (0.9-1.1) APTT (21.0-31.0) Seconds PTT Ratio Sodium (136-145) mmol/L Potassium (3.5-5.1) mmol/L Chloride (98-107) mmol/L Carbon Dioxide (21-32) mmol/L Anion Gap (3-11) BUN (7-18) mg/dl Creatinine (0.6-1.2) mg/dl Est Cr Clr Drug Dosing Est GFR ( Amer) ml/min Est GFR (Non-Af Amer) ml/min BUN/Creatinine Ratio (10-20) Glucose (70-99) mg/dl Lactate 1.1 (0.4-2.0) mmol/L Calcium (8.5-10.1) mg/dl Magnesium (1.8-2.4) mg/dl Total Bilirubin (0.2-1) mg/dl AST (15-37) U/L ALT (12-78) U/L Alkaline Phosphatase (45-117) U/L Troponin I (0-0.045) ng/ml Total Protein (6.4-8.2) gm/dl Albumin (3.4-5.0) gm/dl Globulin (2.5-4.0) gm/dl Albumin/Globulin Ratio (0.9-2) Procalcitonin < 0.05 (0-0.5) ng/ml Imaging Data My Impression: X-ray: I interpreted the following studies. Chest: A single view study of the chest was reviewed and was negative for cardiomegaly, focal infiltrate, effusion, pulmonary edema, or wide mediastinum. Radiologist's Impression: Chest X-Ray 12/26/20 03:53 SINGLE VIEW CHEST CLINICAL HISTORY: Sepsis. FINDINGS: An AP, portable, upright chest radiograph is compared to study dated 05/03/2020 and correlated with chest CT dated 07/09/2011. The examination is degraded by portable technique and patient rotation. The cardiomediastinal silhouette is unremarkable. There is mild bibasilar atelectasis. The lungs and pleural spaces are otherwise clear. No pneumothorax is seen. The skeletal structures are osteopenic. The bony thorax is grossly intact. IMPRESSION: No active disease in the chest. ACT 112: Negative or not required by law. Electronically signed by: Deon Houston M.D. 12/26/2020 7:12 AM ECG Data Attestation: I personally reviewed and interpreted this ECG as follows: Indication: + weakness Rate (beats per minute): 93 Rhythm: + normal sinus ECG Intervals/blocks: + Normal QRS and + Normal QT ECG [place]: + Normal ECG ST segments: + Normal ST segments MDM Narrative This is an ill appearing 75 yo female who presents with significant weakness following COVID booster earlier in the day. states this isn't uncommon for her following vaccinations. Given age and abn initial VS including fever, sepsis evaluation started, however no obvious etiology noted. I do not suspect occult GI infection, occult PNA, pericarditis/myocarditis, meningitis/encephalitis, deep space infection, or Gu infection. UA was still pending at time of discussion with hospitalist. Patient reported feeling improved once fever improved. She was cautiously hydrated with IVF. She tolerated po, however still couldn't event stand at bedside. Due to continued weakness, fall risk, uncomfortable taking her home in this condition, hospitalist contacted for likely observation. An order was placed for continuous cardiac monitoring. The monitor shows a rate of __97_ with _normal sinus_ rhythm. Impression & Plan Weakness, Hyponatremia, Adverse effect of vaccine Discharge Plan Visit Data Chief Complaint: Illness Stated Complaint: ILLNESS ED Provider: Jada Fontaine Discharge Problem: Weakness, Hyponatremia, Adverse effect of vaccine Patient Disposition: Home - Self-Care Discharge Instructions Interventions: ED Discharge Assessment Last Done: 12/26/20 12:35 Discharge Problem: Adverse effect of vaccine Qualifiers: Encounter type: initial encounter Qualified Code(s): T50.Z95A - Adverse effect of other vaccines and biological substances, initial encounter
[2020-12-26] MEDS ORDERED: ACETAMINOPHEN 1,000 MG/100 ML VIAL IV STA ×2 (05:51→20:29)
--- NOTE | 2020-12-26 07:13 | XRay Report ---
SINGLE VIEW CHEST CLINICAL HISTORY: Sepsis. FINDINGS: An AP, portable, upright chest radiograph is compared to study dated 05/03/2020 and correlat ed with chest CT dated 07/09/2011. The examination is degraded by portable technique and patient rotati on. The cardiomediastinal silhouette is unremarkable. There is mild bibasilar atelectasis. The lung s and pleural spaces are otherwise clear. No pneumothorax is seen. The skeletal structures are osteop enic. The bony thorax is grossly intact. IMPRESSION: No active disease in the chest. ACT 112: Negative or not required by law. Electronically signed by: Deon Houston M.D. 12/26/2020 7:12 AM
--- NOTE | 2020-12-26 08:26 | History & Physical Report ---
Date of Service December 26, 2020 Assessment & Plan (1) Weakness: (2) Adverse effect of vaccine: Plan: - Admit to med surg for obs - Appears to be adverse effects from COVID-19 booster vaccination - Continue hydration, supportive care, allow diet - PT/ OT consults to improve ambulation as she was unable to get up out of bed this morning - Pt previously experienced similar with first covid vaccine series as well as zoster vaccination which hospitalized her in 2019. (3) Hyponatremia: Plan: - Cont salt tabs - Cont gentle hydration, encourage po intake - chronic (4) HTN (hypertension): Plan: - BP well controlled presently, does not appear to be on home antihypertensive meds (5) Factor V Leiden: Plan: - Hs of such, hx of PE, no longer on formal anticoagulation but does take full dose aspirin daily which will be continued here DVT ppx: - teds CODE: DNR/DNI Dispo: From home, likely to remain in the hospital x 1-2 days History of Present Illness Primary Care Provider: Magda Taylor DO This is a 75-year-old female with PMHx of HTN, HLD, history of TIA, factor V Leiden, osteoarthritis, who presents with weakness and fatigue x1 day. Patient reports that she got her Covid booster shot yesterday. Since then she has been feeling much more fatigued, weak, body aches, low grade fever, sweats and nausea at home since. This morning she was unable to get up out of bed and had to call EMS, here in the ER she is unable to stand up which is not her baseline. Typically she and her go for a daily walk for at least 20 minutes. She did have a poor reaction to her initial COVID-19 vaccination series with the second shot, but did not feel this bad. Similar presentation has happened before where she received her zoster vaccination in 2019 and ended up spending 3 days in the hospital. Earlier in November she got her flu vaccination without any adverse effects. Allergies Allergy/AdvReac Type Severity Reaction Status Date / Time indomethacin Allergy Intermediate "FEEL Verified 12/26/20 08:03 STRANGE AND OUT OF IT" adhesive Allergy Mild RASH WITH Verified 12/26/20 08:03 EXTENDED USE bacitracin Allergy Mild RASH Verified 12/26/20 08:03 latex Allergy Mild RASH WITH Verified 12/26/20 08:03 LONGER EXPOSURE neomycin Allergy Mild RASH Verified 12/26/20 08:03 polymyxin B Allergy Mild RASH Verified 12/26/20 08:03 Sulfa (Sulfonamide Allergy Mild RASH Verified 12/26/20 08:03 Antibiotics) Home Medications Medication Instructions Recorded Confirmed Type acetaminophen 650 mg 650 mg PO Q12H PRN 05/23/18 12/26/20 History tablet,extended release (Tylenol Arthritis Pain) aspirin 325 mg tablet 325 mg PO QAM 05/23/18 12/26/20 History calcium carbonate 600 mg (1,500 1 cap PO QAM cap 05/23/18 12/26/20 History mg)-vitamin D3 2,500 unit capsule esomeprazole magnesium 40 mg 40 mg PO QAM 05/23/18 12/26/20 History capsule,delayed release (Nexium) glucosamine 750 uq-[id number]-ivm 1 tab PO QAM tab 05/23/18 12/26/20 History no.7 644 mg-vit Q-odtfzi-cuqdx tablet ipratropium bromide 21 mcg (0.03 2 sprays INTNAS BID 05/23/18 12/26/20 History %) nasal spray montelukast 10 mg tablet 10 mg PO HS 05/23/18 12/26/20 History (Singulair) multivitamin 1 tab PO QAM 05/23/18 12/26/20 History vitamin E 400 unit capsule 400 unit PO QAM 01/26/19 12/26/20 History calcium carbonate 400 mg calcium 400 mg PO DIRECTED PRN 05/10/19 12/26/20 History (1,000 mg) chewable tablet (Tums Ultra) amlodipine 2.5 mg tablet 2.5 mg PO DAILY #90 tab 03/21/20 12/26/20 Rx sodium chloride 1 gram tablet 1,000 mg PO BID #90 tab 03/21/20 12/26/20 Rx fluticasone propionate 50 2 spray INTRANASAL BID 07/29/20 12/26/20 History mcg/actuation nasal spray,suspension atorvastatin 10 mg tablet 10 mg PO MOWEFR tab 10/31/20 12/26/20 History albuterol sulfate 90 mcg/actuation 2 puff INHALATION QID PRN 12/26/20 12/26/20 History aerosol inhaler Past Med/Surg History Medical History Asthma NO CURRENT INHALER Chronic pain of left knee DVT (deep venous thrombosis) LEFT LEG (WAS TAKING WARFARIN 2011) Factor 5 Leiden mutation, heterozygous GERD (gastroesophageal reflux disease) History of colitis Hyperlipidemia Hypertension Hyponatremia Osteoarthritis Spinal stenosis Transient ischemic attack (TIA) 02/08/2012 (NO CURRENT PROBLEMS) Surgical History History of bilateral tubal ligation History of cataract surgery RT/LEFT History of colonoscopy History of esophagogastroduodenoscopy (EGD) History of surgery on arm RT ARM History of tooth extraction S/P wrist surgery LEFT Family History Mother Family history of diabetes mellitus Aunt Family hx of colon cancer Other No family history of adverse response to anesthesia Social History Smoking Status: Former smoker Years Smoked: 3; Number of Years Since Quit: 50; Second Hand Exposure: No; Do You Dip or Chew Tobacco: No; Hx Alcohol Use: No Hx Substance Use: No Preferred Language: Czech Communication Ability: Effective Visual Impairment: No Limitations Hearing Ability: Normal Bleach Packer Required: No Beliefs That Will Affect Care: None marital status: Current Living Situation: Spouse Current Living Situation Comment: With current occupational status: retired Other Information That Helps Us Care for You: No Feels Safe at Home: Yes Safety Concerns: Feels Safe At This Time Assistive Devices: Wheelchair Review of Systems Review of Systems: Constitutional: + low grade fever, sweats and chills, + headache, generalized malaise and body aches Eyes: No diplopia, no worsening or blurred vision ENT: normal hearing, no trouble swallowing Respiratory: No cough, sputum, dyspnea at rest or on exertion Cardiovascular: No chest pain, tightness or palpitations Abdomen: No pain, + nausea, no vomiting, diarrhea or constipation Musculoskeletal: No joint pain, calf pain, swelling Neurologic: +generalized weakness, no numbness/tingling, unable to walk this morning due to weakness but at baseline no balance problems Psychiatric: No anxiety or depression Skin: No rash or itch Physical Exam Physical Exam: General: awake, alert, generalized weakness, malaise, no acute distress, keeps eyes closed during most of visit Head: Normocephalic, atraumatic ENT: PERRL, EOMI, no pharyngeal exudate, mucous membranes moist Chest: Clear to auscultation, on room air, no adventitious breath sounds Cardiac: Regular rhythm, HR 96 at bedside, no murmur, no JVD, normal peripheral pulses, good capillary refill Abdominal: NABS x 4 quadrants, soft, nondistended, nontender to palpation, no rebound or guarding Extremities: Normal inspection, no peripheral erythema, Left ankle is slightly swollen compared to the Right but no pitting. calfs nontender to palpation Psych: Normal mood and affect Neuro: AAO x 3, strength intact bilaterally and rated 5/5, no motor deficits, speech is clear, no peripheral sensory deficits Results & Data Results & Data ([facility]) Vital Signs (Past 12 Hours) Vital Signs Temp Pulse Pulse Resp BP BP Pulse Ox 12/26/20 06:32 37 C 12/26/20 06:16 98 H 18 160/87 H 97 12/26/20 05:37 102 H 18 145/94 H 97 12/26/20 04:27 102 H 18 97 12/26/20 04:08 102 H 18 161/88 H 98 12/26/20 03:33 38.4 C H 107 H 16 172/98 H 97 Diagnostic Findings Chest X-Ray 12/26/20 03:53 SINGLE VIEW CHEST CLINICAL HISTORY: Sepsis. FINDINGS: An AP, portable, upright chest radiograph is compared to study dated 05/03/2020 and correlated with chest CT dated 07/09/2011. The examination is degraded by portable technique and patient rotation. The cardiomediastinal silhouette is unremarkable. There is mild bibasilar atelectasis. The lungs and pleural spaces are otherwise clear. No pneumothorax is seen. The skeletal structures are osteopenic. The bony thorax is grossly intact. IMPRESSION: No active disease in the chest. ACT 112: Negative or not required by law. Electronically signed by: Deon Houston M.D. 12/26/2020 7:12 AM Code Status & VTE Plan Code Status DNR/DNI - discussed with pt at bedside Supervising Physician Co-Signing Physician Notes Pt was seen and examined. Agreed with Ruby SWEET exam. 75-year-old female with PMHx of HTN, HLD, history of TIA, factor V Leiden, osteoarthritis, who presents with weakness and fatigue x1 day. Pt said that she got her COVID 19 booster shot yesterday, then later she became fatigue, weak, body aches, low grade fever, sweats and nausea. This morning she felt so weak and was unable to get up. called EMS and she was brought to the ER. She had a similar presentation back in 2019 after received her zoster vaccination in 2019 and ende d up spending 3 days in the hospital. Currently she felt weak and sleepy. Lab on admission showed Na 131. CXR on admission showed no active disease in the chest. CT head showed no acute intracranial findings. Will continue IV hydration. PT/OT eval, fall precaution. Monitor electrolytes. MD Tyler (1) Adverse effect of vaccine Encounter type: initial encounter Qualified Code(s): T50.Z95A - Adverse effect of other vaccines and biological substances, initial encounter
--- NOTE | 2020-12-26 11:05 | Electrocardiogram Report ---
Test Reason : Blood Pressure : / mmHG Vent. Rate : 093 BPM Atrial Rate : 093 BPM P-R Int : 148 ms QRS Dur : 070 ms QT Int : 344 ms P-R-T Axes : -16 042 006 degrees QTc Int : 427 ms Poor data quality, interpretation may be adversely affected Normal sinus rhythm Left atrial enlargement Borderline ECG When compared with ECG of 03-MAY-2020 23:33, No significant change Confirmed by Lj Esposito ([id number]) on 12/26/2020 11:04:38 AM Referred By: REFERRED SELF Confirmed By:Lj Esposito
[2020-12-26 11:18] LABS: Appearance Urine Clear (Clear); Bacteria Urine Automated Negative (Negative); Bilirubin Urine Negative (Negative); Blood Urine 1+ (Negative); Cast Urine Automated 0 /lpf (0-5); Color Urine Yellow; Glucose Urine UA Negative (Negative); Ketones Urine Negative (Negative); Leukocyte Esterase Urine Negative (Negative); Nitrite Urine Negative (Negative); Protein Urine Negative (Negative); Specific Gravity Urine 1.014 (1.000-1.030); Urobilinogen Urine Negative (Negative)
[2020-12-26] MEDS ORDERED: ONDANSETRON INJ 2 MG/ML 2 ML VIAL IV PRN (13:37)
[2020-12-26] MEDS ORDERED: ACETAMINOPHEN 325 MG TAB PO PRN (13:37)
[2020-12-26] MEDS: amLODIPine BESYLATE 5 MG TAB PO SCH (14:40)
[2020-12-26] MEDS: SODIUM CHLORIDE 1 GM TABLET PO SCH ×2 (14:41→20:58)
[2020-12-26] MEDS: ASPIRIN 325 MG ECTAB PO SCH (14:41)
[2020-12-26] MEDS: FLUTICASONE PROPIONATE NA SPR 16 GM BTL SCH ×2 (14:41→20:58)
[2020-12-26] MEDS ORDERED: MONTELUKAST SODIUM 10 MG TABLET PO SCH (21:00)
[2020-12-26 21:34] LABS: BUN Creatinine Ratio 15.7 (10-20); Calcium 8.7 mg/dl (8.5-10.1); Creatinine Clr Calc Pharmacy 90.1 ml/min; Est GFR (African American) 107.1 ml/min; Est GFR (Non-African American) 92.4 ml/min; Potassium 3.6 mmol/L (3.5-5.1)
[2020-12-26 21:43] LABS: Thyroid Stimulating Hormone 0.906 uIu/ml (0.300-4.500)
[2020-12-26 22:46] LABS: Lyme Ab IgG w/WB Rflx Negative (Negative); Lyme Ab IgM w/WB Rflx Negative (Negative)
[2020-12-27] MEDS ORDERED: ACETAMINOPHEN 325 MG TAB PO STA (02:11)
--- NOTE | 2020-12-27 06:12 | CT Scan Report ---
CT OF THE HEAD WITHOUT CONTRAST CLINICAL HISTORY: Headache. COMPARISON STUDY: Head CT April 26, 2020. CT DOSE: 614.27 mGy.cm TECHNIQUE: Helical axial images of the head were obtained without IV contrast. Automated exposure con trol was utilized for the study. A dose lowering technique was utilized adhering to the principles o f ALARA. FINDINGS: No acute intracranial hemorrhage, midline shift or mass effect is present. The ventricular system is stable. White matter hypodensity suggests small vessel disease. These are unchanged The bas al cisterns are patent. No extra-axial collections are present. There are no findings to suggest acut e dural sinus thrombosis or acute territorial infarct. No significant calvarial abnormalities are pre sent. Visualized portions of the sinuses and mastoid air cells are clear. IMPRESSION: No acute intracranial findings. ACT 112: Negative or not required by law. Electronically signed by: Dewayne Cuba M.D. 12/27/2020 6:10 AM
[2020-12-27 06:22] LABS: Hematocrit (blood only) 36.2 % (37-47); Hemoglobin 12.5 g/dL (12.0-16.0); Mean Corpuscular Hemoglobin 29.5 pg (25-34); Mean Corpuscular Hgb Conc 34.5 g/dL (32-36); Mean Corpuscular Volume 85.4 fL (80-100); Mean Platelet Volume 10.6 fL (7.4-10.4); Platelet Count 195 K/uL (130-400); RDW Coefficient of Variation 12.9 % (11.5-14.5); RDW Standard Deviation 40.6 fL (36.4-46.3); Red Blood Count 4.24 M/uL (4.2-5.4); White Blood Count 5.29 K/uL (4.8-10.8)
[2020-12-27 06:51] LABS: Albumin Level 2.7 gm/dl (3.4-5.0); BUN Creatinine Ratio 17.9 (10-20); Calcium 8.1 mg/dl (8.5-10.1); Creatinine Clr Calc Pharmacy 66.9 ml/min; Est GFR (African American) 92.5 ml/min; Est GFR (Non-African American) 79.8 ml/min; Magnesium 1.9 mg/dl (1.8-2.4); Potassium 3.3 mmol/L (3.5-5.1)
[2020-12-27 07:05] LABS: Albumin Globulin Ratio 0.8 (0.9-2); Bilirubin,Total 0.4 mg/dl (0.2-1); Globulin 3.4 gm/dl (2.5-4.0); Total Protein 6.1 gm/dl (6.4-8.2)
[2020-12-27] MEDS: SODIUM CHLORIDE 1 GM TABLET PO SCH (08:09)
[2020-12-27] MEDS: amLODIPine BESYLATE 5 MG TAB PO SCH (08:09)
[2020-12-27] MEDS: FLUTICASONE PROPIONATE NA SPR 16 GM BTL SCH (08:10)
[2020-12-27] MEDS: ASPIRIN 325 MG ECTAB PO SCH (08:10)
[2020-12-27] MEDS ORDERED: PANTOprazole 40 MG TAB PO SCH (09:00)
[2020-12-27] MEDS ORDERED: POTASSIUM CHLORIDE CRTAB 20 MEQ TABCR PO STA (09:45)
--- NOTE | 2020-12-27 18:04 | Discharge Summary ---
Date of Service December 27, 2020 Admission HPI Per Admitting Provider This is a 75-year-old female with PMHx of HTN, HLD, history of TIA, factor V Leiden, osteoarthritis, who presents with weakness and fatigue x1 day. Patient reports that she got her Covid booster shot yesterday. Since then she has been feeling much more fatigued, weak, body aches, low grade fever, sweats and nausea at home since. This morning she was unable to get up out of bed and had to call EMS, here in the ER she is unable to stand up which is not her baseline. Typically she and her go for a daily walk for at least 20 minutes. She did have a poor reaction to her initial COVID-19 vaccination series with the second shot, but did not feel this bad. Similar presentation has happened before where she received her zoster vaccination in 2019 and ended up spending 3 days in the hospital. Earlier in November she got her flu vaccination without any adverse effects. Admission Exam Per Admitting Provider General: awake, alert, generalized weakness, malaise, no acute distress, keeps eyes closed during most of visit Head: Normocephalic, atraumatic ENT: PERRL, EOMI, no pharyngeal exudate, mucous membranes moist Chest: Clear to auscultation, on room air, no adventitious breath sounds Cardiac: Regular rhythm, HR 96 at bedside, no murmur, no JVD, normal peripheral pulses, good capillary refill Abdominal: NABS x 4 quadrants, soft, nondistended, nontender to palpation, no rebound or guarding Extremities: Normal inspection, no peripheral erythema, Left ankle is slightly swollen compared to the Right but no pitting. calfs nontender to palpation Psych: Normal mood and affect Neuro: AAO x 3, strength intact bilaterally and rated 5/5, no motor deficits, speech is clear, no peripheral sensory deficits Principal Diagnosis (1) Weakness: (2) Adverse effect of vaccine: (3) Hyponatremia: Discharge Exam General- No acute distress Head- atraumatic Eyes- PERRL, EOMI, ENT- oropharynx clear Neck- supple, no JVD Lungs- clear to auscultation Heart- regular rhythm; no murmur Abdomen- normal bowel sounds, soft, nontender Extremities- no calf tenderness Neuro- alert, oriented x 3; PERRL, EOMI; no facial palsy; no dysarthria Skin- warm & dry Discharge Data Allergies Allergy/AdvReac Type Severity Reaction Status Date / Time indomethacin Allergy Intermediate "FEEL Verified 12/26/20 08:03 STRANGE AND OUT OF IT" adhesive Allergy Mild RASH WITH Verified 12/26/20 08:03 EXTENDED USE bacitracin Allergy Mild RASH Verified 12/26/20 08:03 latex Allergy Mild RASH WITH Verified 12/26/20 08:03 LONGER EXPOSURE neomycin Allergy Mild RASH Verified 12/26/20 08:03 polymyxin B Allergy Mild RASH Verified 12/26/20 08:03 Sulfa (Sulfonamide Allergy Mild RASH Verified 12/26/20 08:03 Antibiotics) Consultations 12/26/20 08:16 ED Decision to Admit Stat Ordered Studies 12/27/20 02:11 CT head/brain wo con Urgent CT OF THE HEAD WITHOUT CONTRAST CLINICAL HISTORY: Headache. COMPARISON STUDY: Head CT April 26, 2020. CT DOSE: 614.27 mGy.cm TECHNIQUE: Helical axial images of the head were obtained without IV contrast. Automated exposure control was utilized for the study. A dose lowering technique was utilized adhering to the principles of ALARA. FINDINGS: No acute intracranial hemorrhage, midline shift or mass effect is present. The ventricular system is stable. White matter hypodensity suggests small vessel disease. These are unchanged The basal cisterns are patent. No extra-axial collections are present. There are no findings to suggest acute dural sinus thrombosis or acute territorial infarct. No significant calvarial abnormalities are present. Visualized portions of the sinuses and mastoid air cells are clear. IMPRESSION: No acute intracranial findings. ACT 112: Negative or not required by law. Electronically signed by: Dewayne Cuba M.D. 12/27/2020 6:10 AM Dictated:12/27/20608 Transcribed: 12/27/20608 SINGLE VIEW CHEST CLINICAL HISTORY: Sepsis. FINDINGS: An AP, portable, upright chest radiograph is compared to study dated 05/03/2020 and correlated with chest CT dated 07/09/2011. The examination is degraded by portable technique and patient rotation. The cardiomediastinal silhouette is unremarkable. There is mild bibasilar atelectasis. The lungs and pleural spaces are otherwise clear. No pneumothorax is seen. The skeletal structures are osteopenic. The bony thorax is grossly intact. IMPRESSION: No active disease in the chest. ACT 112: Negative or not required by law. Electronically signed by: Deon Houston M.D. 12/26/2020 7:12 AM Dictated:12/26/20710 Transcribed: 12/26/20710 Hospital Course (1) Weakness: (2) Adverse effect of vaccine: - Admit to med surg for obs - Appears to be adverse effects from COVID-19 booster vaccination - Continue hydration, supportive care, allow diet - PT/ OT consults to improve ambulation as she was unable to get up out of bed this morning - Pt previously experienced similar with first covid vaccine series as well as zoster vaccination which hospitalized her in 2019. (3) Hyponatremia: - Cont salt tabs - Cont gentle hydration, encourage po intake - chronic (4) HTN (hypertension): - BP well controlled presently, does not appear to be on home antihypertensive meds (5) Factor V Leiden: - Hs of such, hx of PE, no longer on formal anticoagulation but does take full dose aspirin daily which will be continued here DVT ppx: - teds CODE: DNR/DNI Dispo: From home, likely to remain in the hospital x 1-2 days Total Time Total Time Spent Total Time Spent (In Minutes): 35 minutes Discharge Plan Discharge Items Patient Disposition: Home - Self-Care Reason For Visit: WEAKNESS,FATIGUE Discharge Diagnosis: (1) Weakness: (2) Adverse effect of vaccine: (3) Hyponatremia: Activity: Resume your previous activity Non-emergency contact: Primary Care Provider Call non-emergency contact if: you have any medication questions Follow-up/Referrals: Magda Taylor DO [Primary Care Provider] - Diet: Heart Healthy Addtl Attending Provider Instructions: Follow up with your primary care provider within 1 week ([facility] office will call you for the appointment) Fall precaution Seek medical attention if your symptoms reoccur Check BMP in 1 -2 weeks to monitor your electrolytes Pending Studies at Discharge: No Stand-Alone Forms: My [employer], Smoking Cessation Medications and DC Order Prescriptions: Continued acetaminophen [Tylenol Arthritis Pain] 650 mg tablet extended release 650 mg PO Q12H PRN (Reason: Pain) RF: 0 aspirin 325 mg tablet 325 mg PO QAM RF: 0 esomeprazole magnesium [Nexium] 40 mg capsule,delayed release(DR/EC) 40 mg PO QAM RF: 0 btww-eafoxb-krt#[id number]-T-hwui-boron [id number] mg tablet 1 tab PO QAM RF: 0 ipratropium bromide 0.03 % spray,non-aerosol 2 sprays INTNAS BID RF: 0 montelukast [Singulair] 10 mg tablet 10 mg PO HS RF: 0 multivitamin tablet 1 tab PO QAM RF: 0 calcium carbonate-vitamin D3 600 mg (1,500 mg)-2,500 unit capsule 1 cap PO QAM RF: 0 amlodipine 2.5 mg tablet 2.5 mg PO DAILY Qty: 90 RF: 3 sodium chloride 1 gram tablet 1,000 mg PO BID Qty: 90 RF: 5 calcium carbonate [Tums Ultra] 400 mg calcium (1,000 mg) Tablet,Chewable 400 mg PO DIRECTED PRN (Reason: Gi Upset) RF: 0 vitamin E 400 unit Capsule 400 unit PO QAM RF: 0 atorvastatin 10 mg tablet 10 mg PO MOWEFR RF: 0 fluticasone propionate 50 mcg/actuation [place],Suspension 2 spray INTRANASAL BID RF: 0 albuterol sulfate 90 mcg/actuation HFA aerosol inhaler 2 puff inhalation QID PRN (Reason: Shortness Of Breath) RF: 0 Discharge Orders: Discharge Order (Routine); Ordered 12/27/20 Ordered By: Risa Scott Admission Data Admit Date/Time: 12/26/20 08:29 Attending Provider: Risa Scott Admit Provider: Risa Scott Primary Care Provider: Magda Taylor Other Providers: Risa Scott Other Interventions: Discharge Summary Assessment (RN) Last Done: 12/27/20 18:10
[2020-12-29] MEDS ORDERED: ATORVASTATIN 10 MG TAB PO SCH (09:00)
== END 2020-12-27 19:20 | disposition home or self-care (01) ==
LOC: ED 03:25 → 3N 03:25

== ENCOUNTER 2023-03-01 14:28 | Observation (INO) ==
[2023-03-01] MEDS ORDERED: SODIUM CHLORIDE 0.9% 500 ML IV SCH (15:00)
--- NOTE | 2023-03-01 15:24 | Emergency Department Note ---
History of Present Illness General Chief complaint: Illness Time Seen by Provider: 03/01/23 14:42 History of Present Illness Provider complaint: Weakness COVID-positive 77-year-old female presents emergency department for weakness. Patient reports she tested positive for COVID today and her symptoms began today. She reports no chest pain or difficulty breathing. No nausea vomiting or diarrhea. 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 Home Medications Medication Instructions Recorded Confirmed Type aspirin 325 mg tablet 325 mg PO QAM 05/23/18 03/01/23 History calcium carbonate 600 mg-vitamin 1 cap PO QDL 05/23/18 03/01/23 History D3 62.5 mcg (2,500 unit) capsule esomeprazole magnesium 40 mg 40 mg PO QAM 05/23/18 03/01/23 History capsule,delayed release (Nexium) ipratropium bromide 21 mcg (0.03 2 sprays intranasal BID 05/23/18 03/01/23 History %) nasal spray montelukast 10 mg tablet 10 mg PO HS 05/23/18 03/01/23 History (Singulair) multivitamin 1 tab PO QDL 05/23/18 03/01/23 History vitamin E 268 mg (400 unit) capsule 400 unit PO QDL 01/26/19 03/01/23 History calcium carbonate 400 mg calcium 400 mg PO DIRECTED PRN Gi Upset 05/10/19 03/01/23 History (1,000 mg) chewable tablet (Tums Ultra) sodium chloride 1 gram tablet 1,000 mg PO BID #90 tabs 03/21/20 03/01/23 Rx fluticasone propionate 50 2 spray intranasal QAM 07/29/20 03/01/23 History mcg/actuation nasal spray,suspension amlodipine 2.5 mg tablet 2.5 mg PO QAM #90 tabs 12/06/22 03/01/23 Rx acetaminophen 500 mg tablet 500 mg PO BID Pain 03/01/23 03/01/23 History (Tylenol Extra Strength) albuterol sulfate 90 mcg/actuation 2 puff inhalation QID PRN 03/01/23 03/01/23 History aerosol inhaler (ProAir HFA) Shortness Of Breath Or Wheezing famotidine 20 mg tablet 20 mg PO BID 03/01/23 03/01/23 History meclizine 25 mg tablet 25 mg PO HS PRN dizzyness 03/01/23 03/01/23 History ondansetron 4 mg disintegrating 4 mg translingual Q8 PRN Nausea 03/01/23 03/01/23 History tablet trolamine salicylate 10 % topical 1 applic topical BID PRN .. 03/01/23 03/01/23 History cream (Aspercreme) Allergies Allergy/AdvReac Type Severity Reaction Status Date / Time indomethacin Allergy Intermediate "FEEL Verified 03/01/23 15:48 STRANGE AND OUT OF IT" adhesive Allergy Mild RASH WITH Verified 03/01/23 15:48 EXTENDED USE bacitracin Allergy Mild RASH Verified 03/01/23 15:48 latex Allergy Mild RASH WITH Verified 03/01/23 15:48 LONGER EXPOSURE neomycin Allergy Mild RASH Verified 03/01/23 15:48 polymyxin B Allergy Mild RASH Verified 03/01/23 15:48 Sulfa (Sulfonamide Allergy Mild RASH Verified 03/01/23 15:48 Antibiotics) Past Med/Surg History Medical History Asthma pt reports rare use of PRN inh Hyponatremia following with Dr. Tsang Diarrhea Transient ischemic attack (TIA) 02/08/2012 (NO CURRENT PROBLEMS) Hyperlipidemia Chronic pain of left knee Osteoarthritis History of colitis Factor V Leiden Spinal stenosis DVT (deep venous thrombosis) LEFT LEG (WAS TAKING WARFARIN 2011) GERD (gastroesophageal reflux disease) HTN (hypertension) Surgical History History of bilateral tubal ligation History of esophagogastroduodenoscopy (EGD) History of colonoscopy History of tooth extraction History of cataract surgery RT/LEFT S/P wrist surgery LEFT History of surgery on arm RT ARM Family History Mother Family history of diabetes mellitus Aunt Family hx of colon cancer Other No family history of adverse response to anesthesia Social History Smoking Status: Former smoker Second Hand Exposure: No; Do You Dip or Chew Tobacco: No; Hx Alcohol Use: No Hx Substance Use: No Preferred Language: Ethiopian Communication Ability: Effective Visual Impairment: No Limitations Hearing Ability: Normal Controller Mechanic Required: No Beliefs That Will Affect Care: None marital status: Current Living Situation: Spouse Current Living Situation Comment: With current occupational status: retired Feels Safe at Home: Yes Assistive Devices: Glasses Physical Exam Vital Signs Vital Signs - 24 hr 03/01/23 14:34 03/01/23 14:34 03/01/23 15:15 Temperature 37.2 C 37.2 C Temperature Source Oral Oral Pulse Rate 112 H 110 H Pulse Rate [Apical] Pulse Rhythm Regular Pulse Rhythm [Apical] Pulse Strength Normal Pulse Strength [Apical] Respiratory Rate 20 20 Respiratory Effort / Characteristics Non-Labored Spontaneous Non-Labored Spontaneous Respiratory Depth Normal Normal Respiratory Pattern Regular Regular Blood Pressure 156/74 H Blood Pressure [Right Arm] Blood Pressure Mean 101 Blood Pressure Mean [Right Arm] Blood Pressure Position Semi-fowlers Blood Pressure Position [Right Arm] Pulse Oximetry 95 95 Oxygen Delivery Method Room Air Room Air Sepsis Recent Fever Within 48 Hours Yes Sepsis New/Unexplained Change in Mental Status N/A Sepsis Action Taken by Nursing No Action Required 03/01/23 15:42 03/01/23 15:42 03/01/23 16:16 Temperature 37.1 C Temperature Source Oral Pulse Rate 108 H Pulse Rate [Apical] 103 H 114 H Pulse Rhythm Regular Pulse Rhythm [Apical] Regular Regular Pulse Strength Pulse Strength [Apical] Normal Normal Respiratory Rate 22 22 20 Respiratory Effort / Characteristics Non-Labored Spontaneous Non-Labored Spontaneous Respiratory Depth Normal Normal Respiratory Pattern Regular Regular Blood Pressure Blood Pressure [Right Arm] 156/75 H Blood Pressure Mean Blood Pressure Mean [Right Arm] 102 Blood Pressure Position Blood Pressure Position [Right Arm] Semi-fowlers Pulse Oximetry 93 95 96 Oxygen Delivery Method Room Air Room Air Room Air Sepsis Recent Fever Within 48 Hours Sepsis New/Unexplained Change in Mental Status Sepsis Action Taken by Nursing 03/01/23 17:00 Temperature 36.8 C Temperature Source Oral Pulse Rate Pulse Rate [Apical] 108 H Pulse Rhythm Pulse Rhythm [Apical] Regular Pulse Strength Pulse Strength [Apical] Normal Respiratory Rate 19 Respiratory Effort / Characteristics Non-Labored Spontaneous Respiratory Depth Normal Respiratory Pattern Regular Blood Pressure Blood Pressure [Right Arm] 156/81 H Blood Pressure Mean Blood Pressure Mean [Right Arm] 106 Blood Pressure Position Blood Pressure Position [Right Arm] Semi-fowlers Pulse Oximetry 93 Oxygen Delivery Method Room Air Sepsis Recent Fever Within 48 Hours Sepsis New/Unexplained Change in Mental Status Sepsis Action Taken by Nursing Physical Exam GENERAL: oriented to person, place, and time. appears well-developed and well- nourished. HENT: Exam performed. - Head: Normocephalic and atraumatic. EYES: Conjunctivae and EOM are normal. Right eye exhibits no discharge. Left eye exhibits no discharge. No scleral icterus. NECK: Normal range of motion. Neck supple. No JVD present. CV: Normal rate, regular rhythm, normal heart sounds and intact distal pulses. There is no peripheral edema. Palpable radial pulses bue. PULM/CHEST: Effort normal and breath sounds normal. No respiratory distress. No stridor. no wheezes. no rales. ABD: The abdomen is soft. There is no tenderness. NEURO: Motor and sensation grossly intact. SKIN: Skin is warm and dry. He is not diaphoretic. PSYCH: normal mood and affect. Behavior is normal. Judgment and thought content normal. Course Course 1442: The patient was evaluated in room A4. A complete history and physical exam was performed Cardiac monitoring: An order was placed for continuous cardiac monitoring. The monitor shows a rate of 110 with sinus rhythm interpreted by 1847: Vital signs stable. Labs and imaging within normal limits. Is planning on discharging the patient home with prescription Paxlovid but the at bedside states he cannot take care of the patient and does not feel comfortable having the patient come home with him. He is requesting that the patient be admitted to the hospital. I explained to him that her labs and imaging were within normal limits and her as well as her vital signs and he states he still does not think that he can take the patient home. Will contact [facility] hospitalist team to evaluate the patient for admission. Administered Medications Discontinued Medications Sodium Chloride (Nss) 500 mls @ 999 mls/hr IV .Q31M [facility] Stop: 03/01/23 15:30 Last Infusion: 03/01/23 16:35 Dose: Infused Documented By: Admin: 03/01/23 16:05 Dose: 999 mls/hr Documented By: ETHAN Ioversol (Optiray 320 125ml) 117 ml IV ONCE ONE Stop: 03/01/23 16:51 Last Admin: 03/01/23 16:51 Dose: 117 ml Documented By: ÓSCAR Medical Decision Making Laboratory Data Attestation: I reviewed the patient's lab results. 03/01/23 15:20 03/01/23 15:20 Lab Results 03/01/23 03/01/23 03/01/23 Range/Units 15:20 15:26 15:40 WBC 8.40 (4.8-10.8) K/ul RBC 5.01 (4.20-5.40) M/uL Hgb 13.9 (12.0-16.0) g/dl Hct 42.7 (37.0-47.0) % MCV 85.2 (80.0-100.0) fL MCH 27.7 (25.0-34.0) pg MCHC 32.6 (32.0-36.0) g/dL RDW Std Deviation 42.0 (36.4-46.3) fL RDW Coeff of Chrissie 13.4 (11.5-14.5) % Plt Count 234 (130-400) K/uL MPV 11.0 (9.4-12.4) fL Immature Gran % (Auto) 0.2 % Neut % (Auto) 80.5 % Lymph % (Auto) 6.9 % Wheeler % (Auto) 10.4 % Eos % (Auto) 1.4 % Baso % (Auto) 0.6 % Neut # (Auto) 6.76 H (1.40-6.50) K/uL Lymph # (Auto) 0.58 L (1.20-3.40) K/uL Wheeler # (Auto) 0.87 H (0.11-0.59) K/uL Eos # (Auto) 0.12 (0.00-0.50) K/uL Baso # (Auto) 0.05 (0.00-0.20) K/uL Immature Gran # (Auto) 0.02 (0.01-0.20) K/uL PT 10.8 (9.0-12.0) Seconds INR 1.0 (0.9-1.1) APTT 28 (21-31) Seconds PTT Ratio 1.0 VBG pH 7.37 (7.36-7.41) VBG pCO2 46 (38-50) mmHg VBG pO2 41 mmHg VBG HCO3 27 mmol/L VBG O2 Saturation 66.2 % VBG Base Excess 0.8 mEq/L Sodium 135 L (136-145) mmol/L Potassium 4.1 (3.5-5.1) mmol/L Chloride 99 (98-107) mmol/L Carbon Dioxide 26 (21-32) mmol/L Anion Gap 10 (3-11) BUN 10 (6-23) mg/dl Creatinine 0.77 (0.6-1.2) mg/dl Est Cr Clr Drug Dosing 67.0 ml/min Est GFR ( Amer) 86.9 ml/min Est GFR (Non-Af Amer) 75.0 ml/min BUN/Creatinine Ratio 13.0 (10-20) Glucose 108 H (70-99(Fasting)) mg/dl Lactate 1.1 (0.4-2.0) mmol/L Calcium 9.5 (8.6-10.3) mg/dl Magnesium 1.8 (1.7-2.4) mg/dl Total Bilirubin 0.6 (0.2-1.0) mg/dl Direct Bilirubin 0.1 (0-0.2) mg/dl AST 23 (13-39) U/L ALT 15 (7-52) U/L Alkaline Phosphatase 67 (34-104) U/L Troponin I High Sens 3.6 (0-14) pg/ml Total Protein 7.6 (6.0-8.3) gm/dl Albumin 4.4 (3.4-5.0) gm/dl Procalcitonin < 0.05 (0-0.5) ng/ml Urine Color Yellow Urine Appearance Clear (Clear) Urine pH 7.5 (4.5-7.5) Ur Specific [place] 1.013 (1.000-1.030) Urine Protein Trace H (Negative) Urine Glucose (UA) Negative (Negative) Urine Ketones Trace H (Negative) Urine Blood 1+ H (Negative) Urine Nitrite Negative (Negative) Urine Bilirubin Negative (Negative) Urine Urobilinogen Negative (Negative) Ur Leukocyte Esterase Trace H (Negative) Urine WBC (Auto) 1-5 (0-5) /hpf Urine RBC (Auto) 10-30 H (0-4) /hpf U Hyaline Cast (Auto) 0 (0-5) /lpf U Epithel Cells (Auto) 20-30 H (0-5) /lpf Urine Bacteria (Auto) Negative (Negative) SARS-CoV-2, RNA, NAAT (NEGATIVE) Blood Type A Positive Antibody Screen NEGATIVE 03/01/23 Range/Units 20:30 WBC (4.8-10.8) K/ul RBC (4.20-5.40) M/uL Hgb (12.0-16.0) g/dl Hct (37.0-47.0) % MCV (80.0-100.0) fL MCH (25.0-34.0) pg MCHC (32.0-36.0) g/dL RDW Std Deviation (36.4-46.3) fL RDW Coeff of Chrissie (11.5-14.5) % Plt Count (130-400) K/uL MPV (9.4-12.4) fL Immature Gran % (Auto) % Neut % (Auto) % Lymph % (Auto) % Wheeler % (Auto) % Eos % (Auto) % Baso % (Auto) % Neut # (Auto) (1.40-6.50) K/uL Lymph # (Auto) (1.20-3.40) K/uL Wheeler # (Auto) (0.11-0.59) K/uL Eos # (Auto) (0.00-0.50) K/uL Baso # (Auto) (0.00-0.20) K/uL Immature Gran # (Auto) (0.01-0.20) K/uL PT (9.0-12.0) Seconds INR (0.9-1.1) APTT (21-31) Seconds PTT Ratio VBG pH (7.36-7.41) VBG pCO2 (38-50) mmHg VBG pO2 mmHg VBG HCO3 mmol/L VBG O2 Saturation % VBG Base Excess mEq/L Sodium (136-145) mmol/L Potassium (3.5-5.1) mmol/L Chloride (98-107) mmol/L Carbon Dioxide (21-32) mmol/L Anion Gap (3-11) BUN (6-23) mg/dl Creatinine (0.6-1.2) mg/dl Est Cr Clr Drug Dosing ml/min Est GFR ( Amer) ml/min Est GFR (Non-Af Amer) ml/min BUN/Creatinine Ratio (10-20) Glucose (70-99(Fasting)) mg/dl Lactate (0.4-2.0) mmol/L Calcium (8.6-10.3) mg/dl Magnesium (1.7-2.4) mg/dl Total Bilirubin (0.2-1.0) mg/dl Direct Bilirubin (0-0.2) mg/dl AST (13-39) U/L ALT (7-52) U/L Alkaline Phosphatase (34-104) U/L Troponin I High Sens (0-14) pg/ml Total Protein (6.0-8.3) gm/dl Albumin (3.4-5.0) gm/dl Procalcitonin (0-0.5) ng/ml Urine Color Urine Appearance (Clear) Urine pH (4.5-7.5) Ur Specific [place] (1.000-1.030) Urine Protein (Negative) Urine Glucose (UA) (Negative) Urine Ketones (Negative) Urine Blood (Negative) Urine Nitrite (Negative) Urine Bilirubin (Negative) Urine Urobilinogen (Negative) Ur Leukocyte Esterase (Negative) Urine WBC (Auto) (0-5) /hpf Urine RBC (Auto) (0-4) /hpf U Hyaline Cast (Auto) (0-5) /lpf U Epithel Cells (Auto) (0-5) /lpf Urine Bacteria (Auto) (Negative) SARS-CoV-2, RNA, NAAT POSITIVE A* (NEGATIVE) Blood Type Antibody Screen Imaging Data Attestation: I personally reviewed and interpreted this imaging study as follows: My Impression: Chest x-ray negative. Airway clear. No pneumothorax. No consolidation. No cardiomegaly or cephalization.. No free air under the diaphragm. No fractures of the skeletal structures. Radiologist's Impression: Chest X-Ray 03/01/23 14:50 XR chest 1V portable CLINICAL HISTORY: Sepsis. COMPARISON STUDY: Chest CT July 09, 2011. Chest radiograph December 26, 2020. FINDINGS: No pneumothorax or pleural effusion is present. Cardiac size is normal. Mediastinal contours are stable. There is no consolidation to suggest pneumonia. No evidence for pulmonary edema. Minimal left basilar opacity favors atelectasis. IMPRESSION: No acute cardiopulmonary findings. No change in appearance of the chest. ACT 112: Negative or not required by law. Electronically signed by: Dewayne Cuba M.D. 03/01/2023 3:32 PM Chest CTA 03/01/23 14:51 CT ANGIOGRAM OF THE CHEST CLINICAL HISTORY: Generalized weakness. COMPARISON STUDY: Chest x-ray dated 03/01/2023. Chest CT dated 07/09/2011. TECHNIQUE: Following the IV administration of 117 cc of Optiray 320, CT angiogram of the chest was performed from the upper abdomen to the thoracic inlet utilizing the pulmonary embolus protocol. Images are reviewed in the axial, sagittal, and coronal planes. 3-D MIPS images are created and assessed. IV contrast was administered without complication. A dose lowering technique was utilized adhering to the principles of ALARA. The examination is degraded by motion artifact, as well as by streak artifact from the arms which could not be elevated above the chest. FINDINGS: Thyroid: Imaged portions of the thyroid gland are normal in size and attenuation. Thoracic aorta: The thoracic aorta is normal in caliber and demonstrates standard 3-vessel arch anatomy. No dissection is seen. Pulmonary vasculature: The pulmonary trunk is normal in caliber. There are no filling defects identified in main, lobar, or segmental pulmonary branches to suggest pulmonary embolus. Evaluation of the peripheral branches is degraded by motion artifact. Heart: The heart is normal in size and without pericardial effusion. Lungs and pleural spaces: Evaluation of the lung parenchyma is degraded by motion artifact. There is no airspace consolidation typical for pneumonia or pleural effusion. Scattered foci of scarring/atelectasis are seen throughout both lungs. The trachea and central airways are clear. A 3 mm nodule in the lingula on image #126 is unchanged dating back to 2011 and of doubtful significance. Mediastinum: There is no mediastinal lymphadenopathy. Vandana: Clear. Axillae: There is no axillary lymphadenopathy. Upper abdomen: Partially visualized upper abdominal viscera is within normal limits. Skeletal structures: The skeletal structures are osteopenic. Degenerative change and hyperkyphosis is noted in the thoracic spine. No lytic or blastic bony lesions are seen. IMPRESSION: 1. Streak and motion compromised examination. 2. There is no evidence of pulmonary embolus in the main, lobar, or segmental pulmonary arteries. Evaluation of the peripheral branches is degraded by motion artifact. 3. There is no airspace consolidation or pleural effusion. 4. Additional findings as above. ACT 112: Negative or not required by law. Electronically signed by: Deon Houston M.D. 03/01/2023 5:[address] 03/01/23 14:51 CT SCAN OF THE BRAIN WITHOUT IV CONTRAST CLINICAL HISTORY: Generalized weakness. COMPARISON STUDY: CT of the brain dated 09/18/2021. TECHNIQUE: Unenhanced axial CT scan of the brain is performed from the vertex to the skull base. A dose lowering technique was utilized adhering to the principles of ALARA. CT DOSE: 1885.4 mGy.cm FINDINGS: Brain parenchyma: There is age-related involutional change noting moderate subcortical and periventricular microangiopathic disease. There is no hemorrhage, mass effect, or evidence of acute territorial ischemia by CT criteria. Dave-white matter differentiation is preserved. No extra-axial fluid collection is seen. Ventricles, sulci, cisterns: Prominent secondary to involutional change. Intracranial vasculature: There is atherosclerotic calcification of the cavernous carotid arteries. Calvarium: Unremarkable. Sinuses and mastoids: The visualized paranasal sinuses are clear. The mastoid air cells are well pneumatized. Orbits: The bony orbits are grossly intact. There are bilateral ocular lens implants. IMPRESSION: There is no hemorrhage, mass effect, or evidence of acute territorial ischemia by CT criteria. ACT 112: Negative or not required by law. Electronically signed by: Deon Houston M.D. 03/01/2023 4:58 PM ECG Data Attestation: I personally reviewed and interpreted this ECG as follows: Rate (beats per minute): 111 Rhythm: + sinus tachycardia ECG Intervals/blocks: + Normal AL and + Normal QT-c ECG ST segments: + Normal ST segments Additional Comments: QRS 72 MDM Narrative 1442: The patient was evaluated in room A4. A complete history and physical exam was performed Cardiac monitoring: An order was placed for continuous cardiac monitoring. The monitor shows a rate of 110 with sinus rhythm interpreted by me 1847: Vital signs stable. Labs and imaging within normal limits. Is planning on discharging the patient home with prescription Paxlovid but the at bedside states he cannot take care of the patient and does not feel comfortable having the patient come home with him. He is requesting that the patient be admitted to the hospital. I explained to him that her labs and imaging were within normal limits and her as well as her vital signs and he states he still does not think that he can take the patient home. Will contact [facility] Hospitalist team to evaluate the patient for admission. Impression & Plan COVID-19 Discharge Plan Visit Data Chief Complaint: Illness ED Provider: Keagan Mendieta Discharge Problem: COVID-19 Patient Disposition: Being Evaluated by Hospitalist Forms Stand Alone Forms: My [facility] Prescriptions Prescriptions: No Action aspirin 325 mg tablet 325 mg PO QAM esomeprazole magnesium [Nexium] 40 mg capsule,delayed release(DR/EC) 40 mg PO QAM ipratropium bromide 0.03 % spray,non-aerosol 2 sprays INTNAS BID montelukast [Singulair] 10 mg tablet 10 mg PO HS multivitamin tablet 1 tab PO QDL calcium carbonate-vitamin D3 600 mg (1,500 mg)-2,500 unit capsule 1 cap PO QDL amlodipine 2.5 mg tablet 2.5 mg PO QAM Qty: 90 3RF sodium chloride 1 gram tablet 1,000 mg PO BID Qty: 90 5RF calcium carbonate [Tums Ultra] 400 mg calcium (1,000 mg) Tablet,Chewable 400 mg PO DIRECTED PRN (Reason: Gi Upset) vitamin E 400 unit Capsule 400 unit PO QDL fluticasone propionate 50 mcg/actuation [place],Suspension 2 spray INTRANASAL QAM acetaminophen [Tylenol Extra Strength] 500 mg Tablet 500 mg PO BID famotidine 20 mg tablet 20 mg PO BID meclizine 25 mg tablet 25 mg PO HS PRN (Reason: dizzyness) albuterol sulfate [ProAir HFA] 90 mcg/actuation Hfa Aerosol Inhaler 2 puff INHALATION QID PRN (Reason: Shortness Of Breath Or Wheezing) ondansetron 4 mg tablet,disintegrating 4 mg translingual Q8 PRN (Reason: Nausea) trolamine salicylate [Aspercreme] 10 % Cream 1 applic TOPICAL BID PRN (Reason: ..) Referrals Referrals: Magda Taylor DO [Primary Care Provider] -
--- NOTE | 2023-03-01 15:33 | XRay Report ---
XR chest 1V portable CLINICAL HISTORY: Sepsis. COMPARISON STUDY: Chest CT July 09, 2011. Chest radiograph December 26, 2020. FINDINGS: No pneumothorax or pleural effusion is present. Cardiac size is normal. Mediastinal contour s are stable. There is no consolidation to suggest pneumonia. No evidence for pulmonary edema. Minima l left basilar opacity favors atelectasis. IMPRESSION: No acute cardiopulmonary findings. No change in appearance of the chest. ACT 112: Negative or not required by law. Electronically signed by: Dewayne Cuba M.D. 03/01/2023 3:32 PM
[2023-03-01 15:34] LABS: Base Excess VBG 0.8 mEq/L; HCO3 VBG 27 mmol/L; Oxygen Saturation VBG 66.2 %; PCO2 VBG 46 mmHg (38-50); PO2 VBG 41 mmHg; pH VBG 7.37 (7.36-7.41)
[2023-03-01 15:41] LABS: Basophils # (auto) 0.05 K/uL (0.00-0.20); Basophils % (auto) 0.6 %; Eosinophils # (auto) 0.12 K/uL (0.00-0.50); Eosinophils % (auto) 1.4 %; Hematocrit (blood only) 42.7 % (37.0-47.0); Hemoglobin 13.9 g/dl (12.0-16.0); Immature Granulocytes # (auto) 0.02 K/uL (0.01-0.20); Immature Granulocytes % (auto) 0.2 %; Lymphocytes # (auto) 0.58 K/uL (1.20-3.40); Lymphocytes % (auto) 6.9 %; Mean Corpuscular Hemoglobin 27.7 pg (25.0-34.0); Mean Corpuscular Hgb Conc 32.6 g/dL (32.0-36.0); Mean Corpuscular Volume 85.2 fL (80.0-100.0); Monocytes # (auto) 0.87 K/uL (0.11-0.59); Monocytes % (auto) 10.4 %; Neutrophils # (auto) 6.76 K/uL (1.40-6.50); Neutrophils % (auto) 80.5 %; Platelet Count 234 K/uL (130-400); RDW Coefficient of Variation 13.4 % (11.5-14.5); Red Blood Count 5.01 M/uL (4.20-5.40)
--- NOTE | 2023-03-01 15:43 | Electrocardiogram Report ---
Test Reason : Blood Pressure : / mmHG Vent. Rate : 111 BPM Atrial Rate : 111 BPM P-R Int : 158 ms QRS Dur : 072 ms QT Int : 322 ms P-R-T Axes : 058 -03 055 degrees QTc Int : 437 ms Sinus tachycardia Otherwise normal ECG When compared with ECG of 18-SEP-2021 16:22, Questionable change in QRS axis T wave amplitude has decreased in Inferior leads Confirmed by Gabino Wu ([id number]) on 03/01/2023 3:43:34 PM Referred By: Confirmed By:Erick Wu
[2023-03-01] MEDS: SODIUM CHLORIDE 0.9% 500 ML IV SCH ×2 (15:46→22:32)
[2023-03-01 15:58] LABS: Albumin Level 4.4 gm/dl (3.4-5.0); Bilirubin Direct 0.1 mg/dl (0-0.2); Bilirubin,Total 0.6 mg/dl (0.2-1.0); Calcium 9.5 mg/dl (8.6-10.3); Est GFR (African American) 86.9 ml/min; Magnesium 1.8 mg/dl (1.7-2.4); Potassium 4.1 mmol/L (3.5-5.1); Total Protein 7.6 gm/dl (6.0-8.3)
[2023-03-01 16:03] LABS: Troponin I High Sensitivity 3.6 pg/ml (0-14)
[2023-03-01 16:14] LABS: Appearance Urine Clear (Clear); Bacteria Urine Automated Negative (Negative); Bilirubin Urine Negative (Negative); Blood Urine 1+ (Negative); Cast Urine Automated 0 /lpf (0-5); Color Urine Yellow; Epithelial Cell Urine Auto 20-30 /lpf (0-5); Glucose Urine UA Negative (Negative); Ketones Urine Trace (Negative); Leukocyte Esterase Urine Trace (Negative); Nitrite Urine Negative (Negative); Specific Gravity Urine 1.013 (1.000-1.030); Urobilinogen Urine Negative (Negative); pH Urine 7.5 (4.5-7.5)
[2023-03-01 16:23] LABS: Protein Urine Trace (Negative)
[2023-03-01 16:32] LABS: Partial Thromboplastin Time 28 Seconds (21-31); Prothrombin Time 10.8 Seconds (9.0-12.0)
--- OUTSIDE RECORDS SUMMARY | 2023-03-01 16:32 | External Medical Summary | Summary of Care ---
Author Name Unknown Organization [facility] Address [address] [address] [facility] [address] Phone [phone] Care Team Providers Care Data Integrity Consultant Name Role Phone Magda Taylor Primary Care Provider [phone] Reason for Visit * Reason Comments Outpatient Testing Encounter Details Date Type Department Care Team (Late st Contact Info) Description 02/05/2023 2:30 PM EST Laboratory Laboratory, [facility] [address] [facility] [address] [place], Specimen Drop Off [facility] [address] [facility] [place] [address] Viral gastroenteritis Allergies Active Allergy Reactions Criticality Noted Date Comments Adhesive Tape 07/24/2003 Bandaids Bacitracin Low 09/23/2003 rash/irritation Other reaction(s): RASH Indomethacin 08/06/2003 (?) rash Latex Low 12/26/2020 Other reaction(s): RASH WITH LONGER EXPOSURE Other reaction(s): RASH WITH LONGER EXPOSURE Neomycin Low 07/28/2021 Other reaction(s): RASH Polymyxin B Low 12/26/2020 Other reaction(s): RASH Other reaction(s): RASH Zoster Vac Recomb Adjuvanted Other (Please comment) High 05/17/2019 Weakness LE, unable to stand or ambulate for several hours after the first injection Sulfa Antibiotics 07/20/2004 Bactrim -dizziness documented as of this encounter (statuses as of 02/05/2023) Medications Medication Sig Dispensed Refills Start Date End Date Status ASPIRIN 325 MG PO TABS 1 daily 0 Active acetaminophen (TYLENOL) 500 MG Tablet Take 2 Tablets by mouth in the morning and 2 Tablets before bedtime. 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 Use in each nostril as directed 3 Bottle 3 01/15/2019 Active Misc Natural Products (GLUCOSAMINE CHOND COMPLEX/MSM) Tablet 1 Tablet. 0 05/23/2018 Activ e Calcium Carb-Cholecalciferol (CALCIUM CARBONATE-VITAMIN D3) 600-400 MG-UNIT TABS 1 Capsule. Takes this without the vitamin d 0 05/23/2018 Active vitamin e 100 UNIT Capsule Take 1 Capsule by mouth in the morning. 0 Active Multiple Vitamins-Minerals (MULTIVITAMIN ADULT) TABS Take by mouth. 0 Active Calcium Carbonate Antacid 1000 MG Oral Tablet Chewable Take 400 mg by mouth as needed. 0 05/10/2019 Active sodium chloride 1 GM TabletIndications:Hyp onatremia Take 1 Tab by mouth 3 times a day. -per [employer] 05/23 270 Tab 1 09/10/2019 Active Additional Information Patient taking differently:1,000 mg OralBID (0700,1900), -per [employer] 05/23, Reported on 05/13/2022 amLODIPine Besylate 2.5 MG Oral Tablet (NORVASC) 0 01/14/2020 Active Triamcinolone Acetonide 0.1 % External Ointment (Aristocort)Indicatio ns:Dermatitis Apply topically to affected area 2 times a day. Apply to affected areas on arms twice daily x 1-2 weeks 30 g 0 09/03/2020 Active Additional Information Patient not taking.Reported on 02/01/2023 ProAir HFA 108 (90 Base) MCG/ACT Inhalation Aerosol SolutionIndications:M ild intermittent reactive airway disease with wheezing without complication Inhale 2 Puffs by mouth 4 times a day. 6.7 g 3 12/08/2020 Active Clobetasol Propionate 0.05 % External SolutionIndications:I rritant contact dermatitis, unspecified trigger Apply topically to affected area 2 times a day. Apply to scalp and hair line - allow to soak in. 50 mL 0 02/26/2021 Active Lidocaine 4 % External Patch (Aspercreme)Indicatio ns:Acute midline low back pain with right-sided sciatica Place topically on the skin 1 Patch daily . 30 Patch 0 04/30/2021 Active Montelukast Sodium 10 MG Oral Tablet (Singulair)Indication s:Asthma with severity to be determined Take by mouth 1 Tablet before bedtime. 90 Tablet 3 11/02/2021 Active Ipratropium Avalon 0.03 % Nasal SolutionIndications:C hronic rhinitis 1 squirt each nostril in the afternoon and evening 30 mL 5 12/21/2021 Active Dicyclomine HCl 10 MG Oral Capsule (Bentyl)Indications:D iarrhea, unspecified type Take 1 Capsule (10 mg) by mouth 4 times a day as needed for Diarrhea. 120 Capsule 11 01/13/2022 Active Additional Information Patient not taking.Reported on 12/17/2022 Esomeprazole Magnesium 40 MG Oral Capsule Delayed Release (NexIUM)Indications:G astroesophageal reflux disease without esophagitis,Chronic gastritis without bleeding, unspecified gastritis type Take 1 Capsule by mouth in the morning. 1 hour before the first meal of the day. 90 Capsule 3 06/21/2022 Active Fluocinolone Acetonide 0.01 % Otic Oil (DermOtic) Place 4 drops in the ears up to three times a week 20 mL 12 08/10/2022 Active Additional Information Patient not taking.Reported on 12/17/2022 Fluticasone Propionate 50 MCG/ACT Nasal Suspension (Flonase) Administer 2 Sprays into each nostril in the morning. 16 g 1 11/11/2022 Active Famotidine 20 MG Oral Tablet (Pepcid)Indications:G astroesophageal reflux disease without esophagitis Take 1 Tablet by mouth in the morning and 1 Tablet before bedtime. 180 Tablet 3 12/17/2022 Active Meclizine HCl 25 MG Oral Tablet (Antivert)Indications :Dizziness Take 1 Tablet by mouth at bedtime as needed for Dizziness. 30 Tablet 1 12/17/2022 Active Ondansetron 4 MG Oral Tablet Disintegrating (Zofran)Indications:V iral gastroenteritis Place 1 Tablet on tongue every 8 hours as needed for Nausea. dissolve on tongue. 20 Tablet 1 02/01/2023 Active documented as of this encounter (statuses as of 02/05/2023) Active Problems Problem Noted Date Diagnosed Date Spondylosis of lumbar region without myelopathy or radiculopathy 02/17/2018 Overview: 02/21-xr-xle DDD L1-2, L4-5 with facet arthropathy Gastroesophageal reflux disease without esophagi tis 01/18/2018 Overview: EGD-11/2013-nml, bx mild inflm--nexium 40mg ,zantac 150mg hs History of CVA in adulthood 01/18/2018 Overview: - Pontine per pt--asa 325 mg. HTN, goal below 140/90 01/18/2018 Overview: amlodipine 10mg Hyponatremia 01/18/2018 Overview: Enio [id number] Na Cl 1gm bid Factor 5 Leiden mutation, heterozygous 8 Overview: H/o DVT left leg 2012-was on coumadin x 6 mths., saw Mechelle-now on asa 325mg History of deep vein thrombosis (DVT) of lower e xtremity 01/18/2018 Chronic interstitial cystitis without hematuria 01/18/2018 Overview: Enio Arora- weaned off elmiron 2016 Generalized osteoarthritis 01/31/2008 MEMORY DISTURBANCE 03/24/2005 Senile osteoporosis 01/25/2005 Overview: 08/23-+2.5/-2.1--L-m R-consider dc actonel ( st ? 2991-8331 then saw Ansley) Irritable bowel syndrome 04/15/2003 Overview: Csope 09/2013-nml --rpt 5 yrs(son pre-can P) DJD, CERVICAL SPINE 05/22/2002 Mild intermittent asthma without complication Overview: singulair documented as of this encounter (statuses as of 02/05/2023) Resolved Problems Problem Noted Date Diagnosed Date Resolved Date History of mammogram 01/18/2018 019 Overview: Neg / per pt History of Papanicolaou smear of cervix 01/18/2018 11/27/2018 Overview: Neg 10/ per pt DrMcCleary Retinal edema 02/06/2010 01/18/2018 Open wound of forearm 11/21/20072007 CELLULITIS OF ARM, RIGHT 11/21/2007 CELLULITIS OF NOSE, LEFT 12/23/2006 Hematuria 09/26/2006 01/24/2007 Overview: ICD-10 update of inactive term Nausea 09/26/2006 01/24/2007 Overview: ICD-10 update of inactive term Acute stress reaction 09/26/20062006 Anxiety state 05/30/2006 01/18/2018 CALLUS, LEFT 5TH METATARSAL 07/20/2005 01/24/2007 PRESSURE INCREASED INTRAOCULAR 07/20/2005 01/18/2018 SPRAIN LUMBOSACRAL 02/05/2005 7 Spasm of muscle 02/05/2005 01/24/2007 ADVANCE DIRECTIVE INFORMATION 08/27/2004 01/18/2018 Overview: Yes, Copy scanned at patient level in the electronic medical record.(Go to Action, Patient File to view) Patient aware they must notify their healthcare provider of changes. Other seborrheic keratosis 11/19/2003 1 03/20/2017 Dysuria 11/19/2003 06/02/2004 PELVIC PAIN 11/19/2003 06/02/2004 ELEV BL PRES W-O HYPERTN 11/19/2003 Other seborrheic keratosis 09/23/2003 0 06/02/2004 Peripheral vascular disease 08/06/2003 01/18/2018 BENIGN SAM SKIN LEG, RIGHT 07/15/2003 0 06/02/2004 PAIN IN LIMB, FOOT 07/09/2003 5 NONALLERGIC RHINITIS 07/09/2003 005 Irritable bowel syndrome 07/09/2003 LIGHTHEADEDNESS 04/15/2003 07/09/2003 ABDOMINAL PAIN, LEFT LOWER QUADRANT 04/15/2003 07/09/2003 INFLAMMATORY PAPULE, BACK 04/15/2003 NONALLERGIC RHINITIS 09/11/2002 019 Overview: On astelin,harriett,oswaldovent NS AC SUPP OTITIS MEDIA, RIGHT 05/22/2002 07/09/2003 AC MAXILLARY SINUSITIS 10/11/200107/08 ACUTE URI NOS 10/11/2001 07/09/2003 Urinary frequency 11/27/2018 documented as of this encounter (statuses as of 02/05/2023) Immunizations Name Administration Dates Next Due COVID-19 mRNA, LNP-s, No Pre serve, 2-Dose Series (Beeline) 12/25/2020,05/03/2020,04/12/2020 Pneumococcal Conjugate Vacc, 13 Valent (Prevnar) 11/02/2018 SEASONAL INFLUENZA, PF, 6 M & Above, IM , (FLULAVAL or FLUZONE) 11/27/2018 11/28/2019 Season Influenza, Quad, PF, Adjuvanted, 65+ Yrs, IM (FLUAD) 12/12/2019 Seasonal Influenza, Quadriva lent Hd (Fluzone Hd) 12/11/2022,11/21/2021,11/22/2020 Seasonal Influenza, Quadriva lent, No Preserve, IM 11/10/2017 Seasonal Influenza, Split, I IV3, With Preserve, Inj 01/08/2008,01/05/2007,01/06/2006 TDAP (age 10 and older)(Boostrix) 12/28/2018 Zoster Vaccine Recombinant (Shingrix) 05/09/2019 documented as of this encounter Social History Tobacco Use Types Packs/Day Years Used Date Smoking Tobacco: Former Passive Smoke Exposure: Never Smokeless Tobacco: Never Comments:smoked for three ye ars at the age of 22 and than quit Alcohol Use Standard Drinks/Week Comments Not Currently 0 (1 standard drink = 0.6 oz pur e alcohol) AUDIT-C Answer Date Recorded Frequency of Alcohol Consumption 2-4 times a tue01/18/2018 Average Number of Drinks Not on file 018 Frequency of Binge Drinking Not on file 01/05 PHQ-2 Answer Date Recorded PHQ Adult Total Score 0 12/08/2020 Hunger Vital Sign Answer Date Recorded Worried About Running Out of Food in the Last Ye ar Never true 10/25/2019 Ran Out of Food in the Last Year Never true 10/25/2019 Sex and Gender Information Value Date Recorded Sex Assigned at Female 12/27/2018 3:14 PM EDT Gender Identity Female 12/27/2018 3:14 PM EDT Sexual Orientation Straight 11/02/2018 8: 50 AM EDT Job Start Date Occupation Industry Not on file Not on file Not on file documented as of this encounter Plan of Treatment Upcoming Encounters Date Type Department Care Team (Late st Contact Info) Description 03/16/2023 11:30 AM EST Office Visit [facility] [address] [place] [address] Magda Taylor, [address] [place] [address] 08/04/2023 3:20 PM EDT Office Visit Rheumatology [place] [id number] [facility] [place] [address] Jamar Alvarez MD [address] [place] [address] [place] [address] 08/09/2023 2:30 PM EDT Office Visit Otolaryngology [facility] [address] [address] Hal Padilla, [address] [address] Pending Results Name Type Priority Associated Diagnoses Date /Time GASTROINTESTINAL PATHOGEN PANEL, STOOL Lab Routine Viral gastroenteritis 02/05/2023 2:27 PM EST GASTROINTESTINAL PATHOGEN PANEL PCR Lab Routine Viral gastroenteritis 02/05/2023 2:27 PM EST GASTROINTESTINAL PATHOGEN PANEL CULTURE Lab Routine Viral gastroenteritis 02/05/2023 2:27 PM EST Scheduled Procedures Name Priority Associated Diagnoses Date/Ti me COLONOSCOPY FLEXIBLE PROXIMA L DIAGNOSTIC Recall Encounter for screening colonoscopy Health Maintenance Due Date Last Done Comments Albumin/Creatinine Ratio 1963 Hepatitis C Screening 1963 Pneumococcal Vaccine: 65+ Years (2 - PPSV23 or PCV20) 12/28/2018 11/02/2018 *BISPHONATE OR OTHER ACCEPTABLE MEDICATION NEEDED FOR OSTEOPOROSIS (REFER TO SMARTSET #1146) 12/29/2018 Depression Screening 12/08/2021 12/08/2020 COVID-19 Vaccine ( season) 2022 12/25/2020, 05/03/2020, 04/12/2020 GFR 06/24/2023 06/23/2022, 082 08/2021, 06/12/2021, Additional history exists DXA Scan 09/21/2024 09/21/2022, 07/0 08/2020, 08/09/2018, Additional history exists COLONOSCOPY-EVERY 5 YRS AGES 18-100 05/29/2027 05/28/2022, 08/01/2020, 12/08/2018, Additional history exists DTaP,Tdap,and Td Vaccines (2 - Td or Tdap) 12/28/2028 12/28/2018, 12/22/2004 VITAMIN D LEVEL ONCE IN A LIFETIME-USE SMARTSET# 10691 Completed 01/18/2018, 02/13/2007 Zoster Vaccines Discontinued 05/09/2019 Influenza Vaccine (FLU shot) Completed 12/11/2022, 11/21/2021, 11/22/2020, Additional history exists GARDASIL-HPV IMMUNIZATION SERIES Aged Out No longer eligible based on patient's age to complete this topic Hepatitis B Aged Out No longer eligi ble based on patient's age to complete this topic MENINGOCOCCAL (MENACTRA/MENVEO) Aged Out No longer eligible based on patient's age to complete this topic documented as of this encounter Medical Devices Not on filedocumented as of this encounter Visit Diagnoses Diagnosis Viral gastroenteritis Intestinal infection due to other organism, not elsewhere classified documented in this encounter Additional Health Concerns Infection Onset Date Last Indicated Resolved Time C. difficile Rule-Out 02/05/2023 02/05/20232022 2:32 PM EST Gastrointestinal Rule-Out 02/05/2023 02/05/2023 documented as of this encounter Advance Directives Latest Code Status on File Code Status Date Activated Date Inactivated Comments Full Code 01/16/2020 9:16 AM 01/16/2020 2:21 PM Thi s order reflects the patients wishes and were consensually agreed upon. Question Answer Comments Discussion of Advance Directives occurred with: Not Discussed Code Status History Code Status Date Activated Date Inactivated Comments Full Code 01/16/2020 8:54 AM 01/16/2020 9:16 AM Thi s order reflects the patients wishes and were consensually agreed upon. Question Answer Comments Discussion of Advance Directives occurred with: Not Discussed Care Teams Data Integrity Consultant Relationship Specialty Start Date End Date Magda Taylor DO [address] [facility] [place] [address] PCP - General Family Medicine 11/02/18 documented as of this encounter
--- OUTSIDE RECORDS SUMMARY | 2023-03-01 16:32 | External Medical Summary | Summary of Care ---
Author Name Unknown Organization [facility] Address [address] [place] [address] Phone [phone] Care Team Providers Care Senior Asic Engineer Name Role Phone Antoniashayy Magda Baker Primary Care Provider [phone] Reason for Visit * Reason Comments Acute Ongoing diarrhea, si nce thanksgiving had vomiting and diarrhea and now is having stomach issues and has the nausea constantlyCan eat toast Encounter Details Date Type Department Care Team (Late st Contact Info) Description 02/01/2023 3:00 PM EST Office Visit [facility] [address] [place] [address] JulyDeejay MD [address] [place] [address] Viral gastroenteritis* Allergies Active Allergy Reactions Criticality Noted Date [...] as of this encounter (statuses as of 02/01/2023) Medications Medication Sig Dispensed Refills Start Date End Date Status ASPIRIN 325 MG PO TABS 1 daily 0 Active acetaminophen (TYLENOL) 500 MG Tablet Take 2 Tablets by mouth in the morning and 2 Tablets before bedtime. 100 Tab 0 8 Active Azelastine-Fluticaso ne (DYMISTA) 137-50 MCG/ACT nasal sprayIndications:Chr onic rhinitis Administer 1 [place] into nostril 2 times a day. Use in each nostril as directed 3 Bottle 3 9 Active Misc Natural Products (GLUCOSAMINE CHOND COMPLEX/MSM) Tablet 1 Tablet. 0 9 Active Calcium Carb-Cholecalciferol (CALCIUM CARBONATE-VITAMIN D3) 600-400 MG-UNIT TABS 1 Capsule. Takes this without the vitamin d 0 9 Active vitamin e 100 UNIT Capsule Take 1 Capsule by mouth in the morning. 0 Active Multiple Vitamins-Minerals (MULTIVITAMIN ADULT) TABS Take by mouth. 0 Active Calcium Carbonate Antacid 1000 MG Oral Tablet Chewable Take 400 mg by mouth as needed. 0 0 Active sodium chloride 1 GM TabletIndications:Hy ponatremia Take 1 Tab by mouth 3 times a day. -per [email or web address] 05/23 270 Tab 1 0 Active Additional Information Patient taking differently:1,000 mg OralBID (0700,1900), -per [email or web address] 05/23, Reported on 05/13/2022 amLODIPine Besylate 2.5 MG Oral Tablet (NORVASC) 0 0 Active Triamcinolone Acetonide 0.1 % External Ointment (Aristocort)Indicati ons:Dermatitis Apply topically to affected area 2 times a day. Apply to affected areas on arms twice daily x 1-2 weeks 30 g 0 1 Active Additional Information Patient not taking.Reported on 02/01/2023 ProAir HFA 108 (90 Base) MCG/ACT Inhalation Aerosol SolutionIndications: Mild intermittent reactive airway disease with wheezing without complication Inhale 2 Puffs by mouth 4 times a day. 6.7 g 3 1 Active Clobetasol Propionate 0.05 % External SolutionIndications: Irritant contact dermatitis, unspecified trigger Apply topically to affected area 2 times a day. Apply to scalp and hair line - allow to soak in. 50 mL 0 1 Active Lidocaine 4 % External Patch (Aspercreme)Indicati ons:Acute midline low back pain with right-sided sciatica Place topically on the skin 1 Patch daily . 30 Patch 0 2 Active Montelukast Sodium 10 MG Oral Tablet (Singulair)Indicatio ns:Asthma with severity to be determined Take by mouth 1 Tablet before bedtime. 90 Tablet 3 2 Active Ipratropium [place] 0.03 % Nasal SolutionIndications: Chronic rhinitis 1 squirt each nostril in the afternoon and evening 30 mL 5 2 Active Dicyclomine HCl 10 MG Oral Capsule (Bentyl)Indications: Diarrhea, unspecified type Take 1 Capsule (10 mg) by mouth 4 times a day as needed for Diarrhea. 120 Capsule 11 2 Active Additional Information Patient not taking.Reported on 12/17/2022 Esomeprazole Magnesium 40 MG Oral Capsule Delayed Release (NexIUM)Indications: Gastroesophageal reflux disease without esophagitis,Chronic gastritis without bleeding, unspecified gastritis type Take 1 Capsule by mouth in the morning. 1 hour before the first meal of the day. 90 Capsule 3 3 Active Fluocinolone Acetonide 0.01 % Otic Oil (DermOtic) Place 4 drops in the ears up to three times a week 20 mL 12 3 Active Additional Information Patient not taking.Reported on 12/17/2022 Fluticasone Propionate 50 MCG/ACT Nasal Suspension (Flonase) Administer 2 Sprays into each nostril in the morning. 16 g 1 3 Active Famotidine 20 MG Oral Tablet (Pepcid)Indications: Gastroesophageal reflux disease without esophagitis Take 1 Tablet by mouth in the morning and 1 Tablet before bedtime. 180 Tablet 3 3 Active Meclizine HCl 25 MG Oral Tablet (Antivert)Indication s:Dizziness Take 1 Tablet by mouth at bedtime as needed for Dizziness. 30 Tablet 1 3 Active Ondansetron 4 MG Oral Tablet Disintegrating (Zofran)Indications: Viral gastroenteritis Place 1 Tablet on tongue every 8 hours as needed for Nausea. dissolve on tongue. 20 Tablet 1 3 Active Cephalexin 500 MG Oral CapsuleIndications:S pider bite wound, undetermined intent, initial encounter Take 1 Capsule by mouth in the morning and 1 Capsule before bedtime. Do all this for 10 days. 20 Capsule 0 3 02/02/20 23 Discontinu ed(Medicat ion List Clean Up) Azithromycin 250 MG Oral Tablet (Zithromax Z-Jacky)Indications:Ac kenaitze maxillary sinusitis, recurrence not specified Take two tablets by mouth on first day, then 1 tablet daily until gone 6 Tablet 0 3 02/02/20 23 Discontinu ed(Medicat ion List Clean Up) documented as of this encounter (statuses as of 02/01/2023) Active Problems Problem Noted Date Diagnosed Date [...] Overview: amlodipine 10mg Hyponatremia 01/18/2018 Overview: Enio RenteriaRlWglbhtr-5655-cy Na Cl 1gm bid Factor 5 Leiden mutation, heterozygous 8 Overview: H/o DVT left leg 2012-was on coumadin x 6 mths., khang Min-now on asa 325mg History of deep vein thrombosis (DVT) of lower e xtremity 01/18/2018 Chronic interstitial cystitis without hematuria 01/18/2018 Overview: Enio DrSimmonoracio- weaned off elmiron 2016 Generalized osteoarthritis 01/31/2008 MEMORY DISTURBANCE 03/24/2005 Senile osteoporosis 01/25/2005 Overview: 08/23-+2.5/-2.1--L-m R-consider dc actonel ( st ? 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 Mild intermittent asthma without complication Overview: singulair documented as of this encounter (statuses as of 02/01/2023) Resolved Problems Problem Noted Date Diagnosed Date Resolved Date History of mammogram 01/18/2018 019 Overview: Neg 9/ per pt History of Papanicolaou smear of cervix 01/18/2018 11/27/2018 Overview: Neg 10/18 per pt [place] Retinal edema 02/06/2010 01/18/2018 Open wound of [...] 04/15/2003 NONALLERGIC RHINITIS 09/11/2002 019 Overview: On harriett oliveira atrovent NS AC SUPP OTITIS MEDIA, RIGHT 05/22/2002 07/09/2003 AC MAXILLARY SINUSITIS 10/11/200107/08 ACUTE URI NOS 10/11/2001 07/09/2003 Urinary frequency 11/27/2018 documented as of this encounter (statuses as of 02/01/2023) Immunizations Name Administration Dates Next Due COVID-19 mRNA, LNP-s, No Pre serve, 2-Dose Series ([employer]) 12/25/2020,05/03/2020,04/12/2020 Pneumococcal Conjugate Vacc, 13 Valent (Prevnar) [...] Passive Smoke Exposure: Never Smokeless Tobacco: Never Tobacco Cessation:Counseling Given: Not Answered Comments:smoked for three years at the age of 22 and than [...] on file documented as of this encounter Last Filed Vital Signs Vital Sign Reading Time Taken Comments Blood Pressure 120/70 02/01/2023 2:40 PM EST Pulse 75 02/01/2023 2:40 PM EST Temperature 35.1 C (95.1 F) 02/01/2023 2:40 PM ES T Respiratory Rate 18 02/01/2023 2:40 PM EST Oxygen Saturation 97% 02/01/2023 2:40 PM EST Inhaled Oxygen Concentration - - Weight 85.5 kg (188 lb 8 oz) 02/01/2023 2:40 PM EST Height - - Body Mass Index 31.37 09/29/2022 9:50 AM EDT documented in this encounter Progress Notes * Deejay Hall MD - 02/01/2023 3:30 PM EST Images from the original note were not included. Assessment and Plan 1. Viral gastroenteritis Suspect patient has a viral gastroenteritis. We will rule out C diff or other stool pathogen with stool testing. Recommend she continue to use Imodium for diarrhea and Zofran sent to pharmacy for nausea. Continue to push fluids. 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 - Ondansetron 4 MG Oral Tablet Disintegrating (Zofran); Place 1 Tablet on tongue every 8 hours as needed for Nausea. dissolve on tongue. Dispense: 20 Tablet; Refill: 1 - GASTROINTESTINAL PATHOGEN PANEL, STOOL; Future - CLOSTRIDIUM DIFFICILE, PCR; Future Wrap-Up Follow up as needed. History of Present Illness The patient is a 77-year-old female with past medical history of mild intermittent asthma, hypertension, GERD, factor 5 Leiden mutation who presents with diarrhea. Patient now on day 6 of diarrhea. This was profuse and watery for the 1st day but has decreased in a mount over the last handful of days. She would significant fatigue at the onset of symptoms. She also has intermittent nausea and vomiting. No fevers. She was able to keep fluids down at this point. Especially piotr john. It appears her last antibiotic regimen was a Z-Jacky in mid December 2022. She also had Keflex in October 2022. No other travel or unusual foods over the last couple of weeks. She did not test herself for COVID. Physical Exam Vitals: 02/01/23 1440 Temp: (!) 35.1 C (95.1 F) Pulse: 75 Resp: 18 SpO2: 97% BP: 120/70 Physical Exam Physical Exam Vitals reviewed. Constitutional: General: She is not in acute distress. HENT: Right Ear: Tympanic membrane normal. There is no impacted cerumen. Left Ear: Tympanic membrane normal. There is no impacted cerumen. Cardiovascular: Rate and Rhythm: Normal rate and regular rhythm. Heart sounds: No murmur heard. Pulmonary: Effort: Pulmonary effort is normal. No respiratory distress. Breath sounds: Normal breath sounds. No wheezing. Abdominal: Comments: Mild tenderness to palpation in the left upper quadrant and epigastric region. No masses palpated. Skin: General: Skin is warm and dry. Neurological: General: No focal deficit present. Mental Status: She is alert. documented in this encounter Nursing Notes * Kacie Sauer LPN - 02/01/2023 2:46 PM EST The patient has been properly identified by confirmation of name and date of . Chief Complaint Patient presents with Acute Ongoing diarrhea, since thanksgiving had vomiting and diarrhea and now is having stomach issues andhas the nausea constantly Can eat toast documented in this encounter Plan of Treatment Upcoming Encounters Date Type Department Care Team (Late st Contact Info) Description 03/16/2023 11:30 AM EST Office Visit [place] [address] [place] [id number] Magda Taylor, [address] [place] [address] 08/04/2023 3:20 PM EDT Office Visit [facility]ology [place] [address] [facility] [place] [address] Jamar Alvarez MD [facility] [place] [address] 08/09/2023 2:30 PM EDT Office Visit Otolaryngology [facility] [address] [place] [address] Hal Padilla DO [address] [place] [address] Scheduled Orders Name Type Priority Associated Diagnoses Orde r Schedule GASTROINTESTINAL PATHOGEN PANEL, STOOL Lab Routine Viral gastroenteritis Expected: 02/01/2023 (Approximate), Expires: 02/01/2024 CLOSTRIDIUM DIFFICILE, PCR Lab Routine Viral gastroenteritis Expected: 02/01/2023 (Approximate), Expires: 02/01/2024 Scheduled Procedures Name Priority Associated Diagnoses Date/Ti [...] 2022 12/25/2020, 05/03/2020, 04/12/2020 GFR 06/24/2023 06/23/2022, 10/06, 06/12/2021, Additional history exists DXA Scan 09/21/2024 09/21/2022, 07/0 08/2020, 08/09/2018, Additional history exists COLONOSCOPY-EVERY 5 YRS AGES 18-100 05/29/2027 05/28/2022, 08/01/2020, 12/08/2018, Additional history exists DTaP,Tdap,and Td Vaccines (2 - Td or Tdap) 12/28/2028 12/28/2018, 12/22/2004 VITAMIN D LEVEL ONCE IN A LIFETIME-USE SMARTSET# [id number] Completed 01/18/2018, 02/13/2007 Zoster Vaccines Discontinued 05/09/2019 [...] of this encounter Visit Diagnoses Diagnosis Viral gastroenteritis- Primary Intestinal infection due to other organism, not elsewhere classified documented in this encounter Advance Directives Latest Code Status [...] Directives occurred with: Not Discussed Care Teams Senior Asic Engineer Relationship Specialty Start Date End Date Magda Taylor DO [address] [place] [address] PCP - General Family Medicine 11/02/18 documented as of this encounter
--- OUTSIDE RECORDS SUMMARY | 2023-03-01 16:32 | External Medical Summary | Summary of Care ---
Author Name Unknown Organization [facility] Address [address] [facility] [address] Phone [phone] Care Team Providers Care Director Epidemiology Name Role Phone Magda Taylor Primary Care Provider Reason for Visit * Reason Comments Outpatient Testing Encounter Details Date Type Department Care Team (Late st Contact Info) Description 02/05/2023 2:30 PM EST Laboratory [facility], [facility] [address] [facility] [address] [place], Specimen Drop Off [facility] [address] [facility] [address] Viral gastroenteritis Allergies Active Allergy Reactions Criticality [...] Active Azelastine-Fluticason e (DYMISTA) 137-50 MCG/ACT nasal sprayIndications: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 Use [...] by mouth 3 times a day. -per [employer] 05/23 270 Tab 1 09/10/2019 Active Additional Information Patient taking differently:1,000 mg OralBID (0700,1900), -per [email or web address] 05/23, Reported on 05/13/2022 amLODIPine Besylate 2.5 [...] bedtime. 90 Tablet 3 11/02/[address] 0.03 % Nasal SolutionIndications:C hronic rhinitis 1 [...] Overview: amlodipine 10mg Hyponatremia 01/18/2018 Overview: Enio RenteriaCuUhhhbxe-0615-pt Na Cl 1gm bid Factor 5 Leiden [...] 08/23-+2.5/-2.1--L-m R-consider dc actonel ( st ? [id number] then saw Ansley) Irritable bowel syndrome 04/15/2003 [...] mRNA, LNP-s, No Pre serve, 2-Dose Series ([employer]) 12/25/2020,05/03/2020,04/12/2020 Pneumococcal Conjugate Vacc, 13 Valent (Prevnar) [...] Description 03/16/2023 11:30 AM EST Office Visit [facility] [address] [place] [address] Magda Taylor, [address] [place] [address] 08/04/2023 3:20 PM EDT Office Visit Rheumatology [place] [address] [facility] [place] [address] Jamar Alvarez MD [address] [place] [address] [place] [address] 08/09/2023 2:30 PM EDT Office Visit Otolaryngology [facility] [address] [place] [address] Hal Padilla, [address] [place] [address] Pending Results Name Type Priority Associated Diagnoses [...] D LEVEL ONCE IN A LIFETIME-USE SMARTSET# [id number] Completed 01/18/2018, 02/13/2007 Zoster Vaccines Discontinued 05/09/2019 [...] Directives occurred with: Not Discussed Care Teams Director Epidemiology Relationship Specialty Start Date End Date Magda Taylor DO [address] [place] [facility] [place] [address] PCP - General Family Medicine 11/02/18 documented as of this encounter
--- OUTSIDE RECORDS SUMMARY | 2023-03-01 16:32 | External Medical Summary | Summary of Care ---
Author Name Unknown Organization [facility] Address [address] [place] [place] [place] [address] Phone [phone] Care Team Providers Care Bead Inspector Name Role Phone Antoniashayy Magda Samuel DEVI Primary Care Provider Reason for Visit * Reason Comments Outpatient Testing Encounter Details Date Type Department Care Team Description 12/17/2022 Laboratory Laboratory, [facility] [address] [place] [address] [facility], [facility] [address] [place] [address] [employer] Other*[id number]; Other headache syndrome; Family history of diabetes mellitus Allergies Active Allergy Reactions Severity Noted Date Comments Adhesive Tape 07/24/2003 Bandaids [...] as of this encounter (statuses as of 12/17/2022) Medications Medication Sig Dispensed Refills Start Date End Date Status ASPIRIN 325 MG PO TABS 1 daily 0 Active acetaminophen (TYLENOL) 500 MG Tablet Take 2 Tablets by mouth in the morning and 2 Tablets before bedtime. 100 Tab 0 02/08/2018 Active Azelastine-Fluticas one (DYMISTA) 137-50 MCG/ACT nasal sprayIndications:Ch ronic rhinitis Administer 1 Gall[place]in into nostril 2 times a day. Use in each nostril as directed 3 Bottle 3 01/15/2019 Active Misc Natural Products (GLUCOSAMINE CHOND COMPLEX/MSM) Tablet 1 Tablet. 0 05/23/2018 Activ e Calcium Carb-Cholecalcifero l (CALCIUM CARBONATE-VITAMIN D3) 600-400 MG-UNIT TABS 1 [...] 0 05/10/2019 Active sodium chloride 1 GM TabletIndications:H yponatremia Take 1 Tab by mouth 3 times a day. -per [employer] 05/23 270 Tab 1 09/10/2019 Active Additional Information Patient taking differently:1,000 mg OralBID (0700,1900), -per [employer]ant[employer] 05/23, Reported on 05/13/2022 amLODIPine Besylate 2.5 MG Oral Tablet (NORVASC) 0 01/14/2020 Active Triamcinolone Acetonide 0.1 % External Ointment (Aristocort)Indicat ions:Dermatitis Apply topically to affected area 2 times a day. Apply to affected areas on arms twice daily x 1-2 weeks 30 g 0 09/03/2020 Active Additional Information Patient not taking.Reported on 12/17/2022 ProAir HFA 108 (90 Base) MCG/ACT Inhalation Aerosol SolutionIndications :Mild intermittent reactive airway disease with wheezing without complication Inhale 2 Puffs by mouth 4 times a day. 6.7 g 3 12/08/2020 Active Clobetasol Propionate 0.05 % External SolutionIndications :Irritant contact dermatitis, unspecified trigger Apply topically to affected area 2 times a day. Apply to scalp and hair line - allow to soak in. 50 mL 0 02/26/2021 Active Lidocaine 4 % External Patch (Aspercreme)Indicat ions:Acute midline low back pain with right-sided sciatica Place topically on the skin 1 Patch daily . 30 Patch 0 04/30/2021 Active Montelukast Sodium 10 MG Oral Tablet (Singulair)Indicati ons:Asthma with severity to be determined Take by mouth 1 Tablet before bedtime. 90 Tablet 3 11/02/2021 Active Ipratropium [place] 0.03 % Nasal SolutionIndications :Chronic rhinitis 1 squirt each nostril in the afternoon and evening 30 mL 5 12/21/2021 Active Dicyclomine HCl 10 MG Oral Capsule (Bentyl)Indications :Diarrhea, unspecified type Take 1 Capsule (10 mg) by mouth 4 times a day as needed for Diarrhea. 120 Capsule 11 01/13/2022 Active Additional Information Patient not taking.Reported on 12/17/2022 Esomeprazole Magnesium 40 MG Oral Capsule Delayed Release (NexIUM)Indications :Gastroesophageal reflux disease without esophagitis,Chronic gastritis without bleeding, [...] 11/11/2022 Active Famotidine 20 MG Oral Tablet (Pepcid)Indications :Gastroesophageal reflux disease without esophagitis Take 1 Tablet by mouth in the morning and 1 Tablet before bedtime. 180 Tablet 3 12/17/2022 Active Azithromycin 250 MG Oral Tablet (Zithromax Z-Jacky)Indications:A cute maxillary sinusitis, recurrence not specified Take two tablets by mouth on first day, then 1 tablet daily until gone 6 Tablet 0 12/17/2022 Active Meclizine HCl 25 MG Oral Tablet (Antivert)Indicatio ns:Dizziness Take 1 Tablet by mouth at bedtime as needed for Dizziness. 30 Tablet 1 12/17/2022 Active documented as of this encounter (statuses as of 12/17/2022) Active Problems Problem Noted Date Spondylosis of lumbar region without mye lopathy or radiculopathy 02/17/2018 Overview: 02/21-xr-xle DDD L1-2, L4-5 with facet arthropathy Gastroesophageal reflux disease without esophagitis 01/18/2018 Overview: EGD-11/2013-nml, bx mild inflm--nexium 40mg ,zantac 150mg hs History of CVA in adulthood 01/18/2018 Overview: - Pontine per pt--asa 325 mg. HTN, goal below 140/90 01/18/2018 Overview: amlodipine 10mg Hyponatremia 01/18/2018 Overview: Enio RenteriaSgZhtlrcs-2762-gy Na Cl 1gm bid Factor 5 Leiden mutation, heterozygous 1 03/20/2017 Overview: H/o DVT left leg 2012-was on coumadin x 6 mths., saw Mechelle-now on asa 325mg History of deep vein thrombosis (DVT) of lower extremity 01/18/2018 Chronic interstitial cystitis without he maturia 01/18/2018 Overview: Enio Arora- weaned off elmiron 2016 Generalized osteoarthritis 01/31/2008 MEMORY DISTURBANCE 03/24/2005 Senile osteoporosis 01/25/2005 Overview: 08/23-+2.5/-2.1--L-m R-consider dc actonel ( st ? [id number] then saw Ansley) Irritable bowel syndrome 04/15/2003 Overview: Csope 09/2013-nml --rpt 5 yrs(son pre-can P) DJD, CERVICAL SPINE 05/22/2002 Mild intermittent asthma without complic ation 01/25/2002 Overview: singulair documented as of this encounter (statuses as of 12/17/2022) Resolved Problems Problem Noted Date Resolved Date History of mammogram 01/18/2018 11/27/2018 Overview: Neg 11/22 per pt History of Papanicolaou smear of cervix 01/19/20 18 11/27/2018 Overview: Neg 12/22 per pt DrMcCleary Retinal edema 02/06/2010 01/18/2018 Open wound of forearm 11/21/2007 01/31/2008 CELLULITIS OF ARM, RIGHT 11/21/2007 008 CELLULITIS OF NOSE, LEFT 12/23/2006 007 Hematuria 09/26/2006 01/24/2007 Overview: ICD-10 update of inactive term Nausea 09/26/2006 01/24/2007 Overview: ICD-10 update of inactive term Acute stress reaction 09/26/2006 01/24/2007 Anxiety state 05/30/2006 01/18/2018 CALLUS, LEFT 5TH METATARSAL 07/20/200501/06 PRESSURE INCREASED INTRAOCULAR 07/20/2005 1 03/20/2017 SPRAIN LUMBOSACRAL 02/05/2005 01/24/2007 Spasm of muscle 02/05/2005 01/24/2007 ADVANCE DIRECTIVE INFORMATION 08/27/2004 Overview: Yes, Copy scanned at patient level in the electronic medical record.(Go to Action, Patient File to view) Patient aware they must notify their healthcare provider of changes. Other seborrheic keratosis 11/19/200301/18 Dysuria 11/19/2003 06/02/2004 PELVIC PAIN 11/19/2003 06/02/2004 ELEV BL PRES W-O HYPERTN 11/19/2003 005 Other seborrheic keratosis 09/23/200306/02 Peripheral vascular disease 08/06/200301/05 BENIGN SAM SKIN LEG, RIGHT 07/15/200306/02 PAIN IN LIMB, FOOT 07/09/2003 06/02/2004 NONALLERGIC RHINITIS 07/09/2003 12/22/2004 Irritable bowel syndrome 07/09/2003 007 LIGHTHEADEDNESS 04/15/2003 07/09/2003 ABDOMINAL PAIN, LEFT LOWER QUADRANT 04/15/2003 07/09/2003 INFLAMMATORY PAPULE, BACK 04/15/20032017 NONALLERGIC RHINITIS 09/11/2002 11/27/2018 Overview: On astelin,flonase,atrovent NS AC SUPP OTITIS MEDIA, RIGHT 05/22/2002 05/0 06/2003 AC MAXILLARY SINUSITIS 10/11/2001 ACUTE URI NOS 10/11/2001 07/09/2003 Urinary frequency 11/27/2018 documented as of this encounter (statuses as of 12/17/2022) Immunizations Name Administration Dates Next Due COVID-19 mRNA, LNP-s, No Pre serve, 2-Dose Series (Pfizer) 12/25/2020,05/03/2020,04/12/2020 Pneumococcal Conjugate Vacc, 13 Valent (Prevnar) [...] drink = 0.6 oz pur e alcohol) Alcohol Habits Answer Date Recorded How often do you have a drink containing alcohol ? 2-4 times a month 01/18/2018 How many drinks containing a lcohol do you have on a typical day when you are drinking? Not asked How often do you have six or more drinks on one occasion? Not asked Food Insecurity Answer Date Recorded Within the past 12 months, y ou worried that your food would run out before you got money to buy more. Never true 10/25/2019 Within the past 12 months, t he food you bought just didn't last and you didn't have money to get more. Never true 10/25/2019 Sex Assigned at Date Recorded Female 12/27/2018 3:14 PM E DT Job Start Date Occupation Industry Not on file Not on file Not on file documented as of this encounter Plan of Treatment Upcoming Encounters Date Type Specialty Care Team Description 12/22/2022 Office Visit Orthopedics Kori Loco MD [address] [place] [address] 03/16/2023 Office Visit Family Medicine Magda Taylor DO [address] [place] [address] 08/04/2023 Office Visit Rheumatology Jamar Alvarez MD [facility] [place] [address] 08/09/2023 Office Visit Otolaryngology Hal Padilla DO [address] [place] [address] Pending Results Name Type Priority Associated Diagnoses Date /Time MYCODE SUBSEQUENT ADULT Lab Routine MyCode Research Other*[id number] 12/17/2022 10:48 AM EDT ERYTHROCYTE SEDIMENTATION RATE (ESR) Lab Routine Other headache syndrome 12/17/2022 10:48 AM EDT GLUCOSE Lab Routine Family history of diabetes mellitus 12/17/2022 10:48 AM EDT MYCODE SST1 Lab Routine [employer] Other*[id number] 12/17/2022 10:48 AM EDT MYCODE SST2 Lab Routine [employer] Other*[id number] 12/17/2022 10:48 AM EDT Scheduled Procedures Name Priority Associated Diagnoses Date/Ti [...] D LEVEL ONCE IN A LIFETIME-USE SMARTSET# [id number] Completed 01/18/2018, 02/13/2007 Zoster Vaccines Discontinued 05/09/2019 [...] as of this encounter Visit Diagnoses Diagnosis [employer] Research Other*[id number] Other headache syndrome Family history of diabetes mellitus documented in this encounter Advance Directives Latest [...] Directives occurred with: Not Discussed Care Teams Bead Inspector Relationship Specialty Start Date End Date Magda Taylor, DO [address] [place] [address] PCP - General Family Medicine 11/02/18 documented as of this encounter
--- OUTSIDE RECORDS SUMMARY | 2023-03-01 16:32 | External Medical Summary | Summary of Care ---
Author Name Unknown Organization [facility] Address [address] [facility] [address] Phone [phone] Care Team Providers Care Breed To Wean Production Technician Name Role Phone Magda Taylor DO Primary Care Provider Encounter Details Date Type Department Care Team (Late st Contact Info) Description 01/31/2023 Telephone [facility] [address] [place] [address] Magda Taylor DO [address] [place] [address] Allergies Active Allergy Reactions Criticality Noted Date [...] as of this encounter (statuses as of 01/31/2023) Medications Medication Sig Dispensed Refills Start Date End Date Status ASPIRIN 325 MG PO TABS 1 daily 0 Active acetaminophen (TYLENOL) 500 MG Tablet Take 2 Tablets by mouth in the morning and 2 Tablets before bedtime. 100 Tab 0 02/08/2018 Active Azelastine-Fluticas one (DYMISTA) 137-50 MCG/ACT nasal sprayIndications:Ch ronic rhinitis Administer 1 Hooper into nostril 2 times a day. Use [...] by mouth 3 times a day. -per [employer] 05/23 270 Tab 1 09/10/2019 Active Additional Information Patient taking differently:1,000 mg OralBID (0700,1900), -per [employer] 05/23, Reported on 05/13/2022 amLODIPine Besylate 2.5 [...] bedtime. 90 Tablet 3 11/02/2021 Active Ipratropium [place] 0.03 % Nasal SolutionIndications :Chronic rhinitis 1 [...] as of this encounter (statuses as of 01/31/2023) Active Problems Problem Noted Date Diagnosed Date [...] Overview: amlodipine 10mg Hyponatremia 01/18/2018 Overview: Enio RenteriaOiMhyozjt-4937-mo Na Cl 1gm bid Factor 5 Leiden [...] 08/23-+2.5/-2.1--L-m R-consider dc actonel ( st ? [id number] then saw Ansley) Irritable bowel syndrome 04/15/2003 Overview: Csope 09/2013-nml --rpt 5 yrs(son pre-can P) DJD, CERVICAL SPINE 05/22/2002 Mild intermittent asthma without complication Overview: singulair documented as of this encounter (statuses as of 01/31/2023) Resolved Problems Problem Noted Date Diagnosed Date Resolved Date History of mammogram 01/18/2018 019 Overview: Neg 9/18 per pt History of Papanicolaou smear of cervix 01/18/2018 11/27/2018 Overview: Neg 10/18 per pt DrMcCleary Retinal edema 02/06/2010 01/18/2018 [...] 04/15/2003 NONALLERGIC RHINITIS 09/11/2002 019 Overview: On astjatinder,harriett,oswaldovent NS AC SUPP OTITIS MEDIA, RIGHT 05/22/2002 07/09/2003 AC MAXILLARY SINUSITIS 10/11/200107/08 ACUTE URI NOS 10/11/2001 07/09/2003 Urinary frequency 11/27/2018 documented as of this encounter (statuses as of 01/31/2023) Immunizations Name Administration Dates Next Due COVID-19 mRNA, LNP-s, No Pre serve, 2-Dose Series ([employer]) 12/25/2020,05/03/2020,04/12/2020 Pneumococcal Conjugate Vacc, 13 Valent (Prevnar) [...] on file documented as of this encounter Miscellaneous Notes * Telephone Encounter - Aura Avalos OSA - 01/31/2023 10:54 AM EST Spoke to patient and she demanded an appointment TODAY (01/31/2023). Nothing in [place], or [place]. Patient advised to go to . She understood and said she would go there. 01/31/2023 * Telephone Encounter - Morgan Guevara OSA - 01/31/2023 10:14 AM EST No Appointments Available Patient declined appointments?: Yes What Visit Type is needed? Acute If Acute Visit Type is needed, were surrounding clinics offered to patient (Yes/No)? N/A Was patient offered appointments with other available providers (Yes/No)? N/A See Call Details? (Yes or No): No Patient has diarreah, vomiting, but will not allow me to schedule at your her practice. Its saying out of network. Please schedule her an acute visit. Thank you. documented in this encounter Plan of Treatment Upcoming Encounters Date Type Department Care Team ([facility] st Contact Info) Description 03/16/2023 11:30 AM EST Office Visit [address] [place] [id number] Magda Taylor, DO [address] [place] [address] 08/04/2023 3:20 PM EDT Office Visit [facility] [place] [id number] [facility] [address] Jamar Alvarez MD [facility], [place] [address] 08/09/2023 2:30 PM EDT Office Visit Otolaryngology [facility] [address] [place] [address] Hal Padilla, DO [address] [place] [address] Scheduled Procedures Name Priority Associated Diagnoses Date/Ti [...] Additional history exists DXA Scan 09/21/2024 09/21/2022, 08/2020, 08/09/2018, Additional history exists COLONOSCOPY-EVERY 5 YRS AGES 18-100 05/29/2027 05/28/2022, 08/01/2020, 12/08/2018, Additional history exists DTaP,Tdap,and Td Vaccines (2 - Td or Tdap) 12/28/2028 12/28/2018, 12/22/2004 VITAMIN D LEVEL ONCE IN A LIFETIME-USE SMARTSET# [id number] Completed 01/18/2018, 02/13/2007 Zoster Vaccines Discontinued 05/09/2019 [...] Not on filedocumented as of this encounter Advance Directives Latest [...] Directives occurred with: Not Discussed Care Teams Breed To Wean Production Technician Relationship Specialty Start Date End Date Magda Taylor DO [address] [place] [address] PCP - General Family Medicine 11/02/18 documented as of this encounter
--- OUTSIDE RECORDS SUMMARY | 2023-03-01 16:32 | External Medical Summary | Summary of Care ---
Author Name Unknown Organization [facility] Address [address] [facility] [place] [address] Phone [phone] Care Team Providers Care Logistic Manager Name Role Phone Claudia Magda Baker Primary Care Provider Reason for Visit * Reason Comments Follow Up Left knee pain Encounter Details Date Type Department Care Team Description 12/22/2022 Office Visit Orthopaedics [facility] [address] [place] [address] Kori Loco MD [address] [place] [address] Primary osteoarthritis of one knee, left* Allergies Active Allergy Reactions Severity Noted Date [...] as of this encounter (statuses as of 12/22/2022) Medications Medication Sig Dispensed Refills Start Date End Date Status ASPIRIN 325 MG PO TABS 1 daily 0 Active acetaminophen (TYLENOL) 500 MG Tablet Take 2 Tablets by mouth in the morning and 2 Tablets before bedtime. 100 Tab 0 02/08/2018 Active Azelastine-Fluticas one (DYMISTA) 137-50 MCG/ACT nasal sprayIndications:Ch ronic rhinitis Administer 1 [place] into nostril 2 times a day. Use [...] by mouth 3 times a day. -per [employer] 05/23 270 Tab 1 09/10/2019 Active Additional Information Patient taking differently:1,000 mg OralBID (0700,1900), -per [employer] 05/23, Reported on 05/13/2022 amLODIPine Besylate 2.5 [...] bedtime. 90 Tablet 3 11/02/2021 Active Ipratropium [place] 0.03 % Nasal SolutionIndications :Chronic rhinitis 1 [...] as of this encounter (statuses as of 12/22/2022) Active Problems Problem Noted Date Spondylosis of lumbar region without mye lopathy or radiculopathy 02/17/2018 Overview: 02/21-xr-xle DDD L1-2, L4-5 with facet arthropathy Gastroesophageal reflux disease without esophagitis 01/18/2018 Overview: EGD-11/2013-nml, bx mild inflm--nexium 40mg ,zantac 150mg hs History of CVA in adulthood 01/18/2018 Overview: - Pontine per pt--asa 325 mg. HTN, goal below 140/90 01/18/2018 Overview: amlodipine 10mg Hyponatremia 01/18/2018 Overview: Enio RenteriaQvRxovoxp-9291-sy Na Cl 1gm bid Factor 5 Leiden [...] 08/23-+2.5/-2.1--L-m R-consider dc actonel ( st ? [id number] then saw Ansley) Irritable bowel syndrome 04/15/2003 Overview: Csope 09/2013-nml --rpt 5 yrs(son pre-can P) DJD, CERVICAL SPINE 05/22/2002 Mild intermittent asthma without complic ation 01/25/2002 Overview: singulair documented as of this encounter (statuses as of 12/22/2022) Resolved Problems Problem Noted Date Resolved Date [...] as of this encounter (statuses as of 12/22/2022) Immunizations Name Administration Dates Next Due COVID-19 [...] on file documented as of this encounter Progress Notes * Kori Loco MD - 12/22/2022 1:35 PM EDT Karina Palacios is a 77 year old female who presents for follow up of left knee injury to [facility]. Karina Palacios is here unaccompanied History: Chief Complaint Patient presents with Follow Up Left knee pain Nursing Notes: Sarah Zuniga LPN 12/22/22 1336 Signed F/u left knee pain with activity Patient notes has been going to physical therapy has helped with ROM level of pain has decreased strengthening has improved. Over all patient is able to do ADL'S much better consider corticosteroid injection. I initially saw patient 11/10/2022 for left knee pain due to osteoarthritis. She elected to start with a trial of bracing and physical therapy. She was provided a hinged knee brace and referred to PT. Here for 8 week follow up. Reports overall improvement. Was just discharged from physical therapy yesterday. Has not engaged in a home exercise program. Review of systems: All others negative except those noted above in HPI. Physical Exam There were no vitals filed for this visit. Estimated body mass index is 31.22 kg/m as calculated from the following: Height as of 09/29/22: 1.651 m (5' 5"). Weight as of 12/17/22: 85.1 kg (187 lb 9.6 oz). General: generally well-nourished and in no acute distress HEENT: normocephalic, atraumatic, sclera anicteric. Psych: mood and affect normal , cooperative Card: Peripheral pulses: normal in affected extremity (s) Resp: equal chest rise, non-tachypneic, non-labored breathing Skin: no rash, normal Neuro: Sensation: normal on affected extremity (s) MSK: Gait/station/stance: slow shuffled gait Knee Exam, Bilateral Inspection: No obvious deformity, no redness, swelling, warmth, bruising, abrasion. Alignment Moderate valgus Bilateral Palpation: tenderness to palpation medial and lateral joint line ROM: Flexion/Neutral/Extension: L - 120/0/0, R - 120/0/0 Popliteal Angle (Hamstring Flexibility): 30 Bilateral Strength: R- Strength: Extension - 5/5 Flexion - 5/5 L - Strength: Extension - 5-/5 Flexion - 5-/5 quadriceps tone is Poor Special Tests: Negative Sylvia's and anterior drawer. Negative sag and posterior drawer. Negative valgus and varus stress test at 0 and 30. Positive Trish's. Hip exam, bilateral: passive internal and external rotation reproduces no pain. Full ROM B/L Assessment and Plan: ICD-10-CM 1. Primary osteoarthritis of one knee, left M17.12 77-year-old female presents today for follow up of left knee pain due to osteoarthritis after course of physical therapy. Overall, feels that her knee pain is significantly improved. No longer limited in her ADLs. Still having issues with her rheumatoid arthritis, but not significantly bothered by the left knee. Does not feel the need for an injection today. She will follow up on an as-needed basis. Reinforced benefit of home exercise program. The above assessment and plan were discussed at length. All questions were answered, and the patient expressed understanding. Kori Loco MD Primary Care Sports Medicine [facility] [address] [address] documented in this encounter Nursing Notes * Sarah Zuniga LPN - 12/22/2022 1:35 PM EDT F/u left knee pain with activity Patient notes has been going to physical therapy has helped with ROM level of pain has decreased strengthening has improved. Over all patient is able to do ADL'S much better consider corticosteroid injection. documented in this encounter Plan of Treatment Upcoming Encounters Date Type Specialty Care Team Description 03/16/2023 Office Visit Family Medicine Magda Taylor, DO [address] [place] [facility] [place] [address] 08/04/2023 Office Visit [facility]umatology [facility] [address] [facility] [address] 08/09/2023 Office Visit Otolaryngology Hal Padilla, DO [address] [place] [address] Scheduled Procedures Name Priority Associated Diagnoses Date/Ti [...] D LEVEL ONCE IN A LIFETIME-USE SMARTSET# [id number] Completed 01/18/2018, 02/13/2007 Zoster Vaccines Discontinued 05/09/2019 [...] as of this encounter Visit Diagnoses Diagnosis Primary osteoarthritis of one knee, left- Primary documented in this encounter Advance Directives Latest [...] Directives occurred with: Not Discussed Care Teams Logistic Manager Relationship Specialty Start Date End Date Magda Taylor, [address] [place] [address] PCP - General Family Medicine 11/02/18 documented as of this encounter
--- OUTSIDE RECORDS SUMMARY | 2023-03-01 16:32 | External Medical Summary ---
Author Name Unknown Address Unknown Organization K01:[facility] – [place] - [address] [place] [id number] Laboratory Report Ordering Provider Test Date Status 02/05/2023 14:27:22 Final Observation Date Value Abnormality Reference (Units) Status Bacteria identified in Specimen by Culture 02/05/2023 14:27:22 No Aeromonas species or Plesiomonas species isolated. Final Test: Gastrointestinal Patho gen Panel Culture
Specimen Source: Stool
Specimen Type: Stool
Specimen Date: 02/05/2023 2:27 PM
Result Date: 02/07/2023 1:20 PM
Result Status: Final result
Resulting Lab: [facility] – [place]
[address]
[place] [id number]

CULTURE

No Aeromonas species or Plesiomonas species isolated.

null Performing Location [facility] – [place], [place] - [address] [place] [address]
--- OUTSIDE RECORDS SUMMARY | 2023-03-01 16:32 | External Medical Summary | Summary of Care ---
Author Name Unknown Organization [facility] Address [address] [place] [facility] [place] [address] Phone [phone] Care Team Providers Care Wheel Press Clerk Name Role Phone Claudia Magda Baker Primary Care Provider [phone] Reason for Visit * Reason Comments Outpatient Testing Encounter Details Date Type Department Care Team Description 06/23/2022 Laboratory Laboratory, [place] [address] [place] [address] [place], [facility] [address] [place] [address] HTN, goal below 140/90; Dyslipidemia, goal LDL below 100; Hyponatremia; Leg weakness, bilateral Allergies Active Allergy Reactions Severity Noted Date [...] before bedtime. 100 Tab 0 02/08/2018 Active Azelastine-Flutic asone (DYMISTA) 137-50 MCG/ACT nasal sprayIndications: Chronic rhinitis Administer 1 [place]bler into nostril 2 times a day. Use in each nostril as directed 3 Bottle 3 01/15/2019 Active Misc Natural Products (GLUCOSAMINE CHOND COMPLEX/MSM) Tablet 1 Tablet. 0 05/23/2018 Active Calcium Carb-Cholecalcife rol (CALCIUM CARBONATE-VITAMIN D3) 600-400 MG-UNIT TABS 1 [...] 0 05/10/2019 Active sodium chloride 1 GM TabletIndications :Hyponatremia Take 1 Tab by mouth 3 times a day. -per [employer]ochikuru 05/23 270 Tab 1 09/10/2019 Active Additional Information Patient taking differently:1,000 mg OralBID (0700,1900), -per [employer] 05/23, Reported on 05/13/2022 amLODIPine Besylate 2.5 MG Oral Tablet (NORVASC) 0 01/14/2020 Active Triamcinolone Acetonide 0.1 % External Ointment (Aristocort)Indic ations:Dermatitis Apply topically to affected area 2 times a day. Apply to affected areas on arms twice daily x 1-2 weeks 30 g 0 09/03/2020 Active ProAir HFA 108 (90 Base) MCG/ACT Inhalation Aerosol SolutionIndicatio ns:Mild intermittent reactive airway disease with wheezing without complication Inhale 2 Puffs by mouth 4 times a day. 6.7 g 3 12/08/2020 Active Clobetasol Propionate 0.05 % External SolutionIndicatio ns:Irritant contact dermatitis, unspecified trigger Apply topically to affected area 2 times a day. Apply to scalp and hair line - allow to soak in. 50 mL 0 02/26/2021 Active Lidocaine 4 % External Patch (Aspercreme)Indic ations:Acute midline low back pain with right-sided sciatica Place topically on the skin 1 Patch daily . 30 Patch 0 04/30/2021 Active Montelukast Sodium 10 MG Oral Tablet (Singulair)Indica tions:Asthma with severity to be determined Take by mouth 1 Tablet before bedtime. 90 Tablet 3 11/02/2021 Active Additional Information Patient not taking.Reported on 05/13/2022 Ipratropium Padroni 0.03 % Nasal SolutionIndicatio ns:Chronic rhinitis 1 squirt each nostril in the afternoon and evening 30 mL 5 12/21/2021 Active Dicyclomine HCl 10 MG Oral Capsule (Bentyl)Indicatio ns:Diarrhea, unspecified type Take 1 Capsule (10 mg) by mouth 4 times a day as needed for Diarrhea. 120 Capsule 11 01/13/2022 Active Esomeprazole Magnesium 40 MG Oral Capsule Delayed Release (NexIUM)Indicatio ns:Gastroesophage al reflux disease without esophagitis,Chron ic gastritis without bleeding, unspecified gastritis type Take 1 Capsule by mouth in the morning. 1 hour before the first meal of the day. 90 Capsule 3 06/21/2022 Active Fluocinolone Acetonide 0.01 % Otic Oil (DermOtic) Place 4 drops in the ears up to three times a week 20 mL 12 06/18/2021 3 Discontinue d(Refill) Famotidine 20 MG Oral Tablet (Pepcid)Indicatio ns:Gastroesophage al reflux disease without esophagitis Take by mouth 1 Tablet in the morning. 90 Tablet 3 12/16/2021 3 Discontinue d(Refill) Fluticasone Propionate 50 MCG/ACT Nasal Suspension (Flonase) Administer into each nostril 2 Sprays in the morning. 16 g 1 12/21/2021 3 Discontinue d(Refill) documented as of this encounter (statuses as [...] Overview: amlodipine 10mg Hyponatremia 01/18/2018 Overview: Enio [id number]-hm Na Cl 1gm bid Factor 5 Leiden [...] 08/23-+2.5/-2.1--L-m R-consider dc actonel ( st ? [id number] then saw [facility]) Irritable bowel syndrome 04/15/2003 [...] 04/15/20032017 NONALLERGIC RHINITIS 09/11/2002 11/27/2018 Overview: On harriett oliveira atrovent NS AC SUPP OTITIS MEDIA, RIGHT 05/22/2002 05/0 06/2003 AC MAXILLARY SINUSITIS 10/11/2001 ACUTE URI NOS 10/11/2001 07/09/2003 Urinary frequency 11/27/2018 documented as of this encounter (statuses as of 12/17/2022) Immunizations Name Administration Dates Next Due COVID-19 mRNA, LNP-s, No Pre serve, 2-Dose Series ([employer]) 12/25/2020,05/03/2020,04/12/2020 Pneumococcal Conjugate Vacc, 13 Valent (Prevnar) 11/02/2018 SEASONAL INFLUENZA, PF, 6 M & Above, IM , (FLULAVAL or FLUZONE) 11/27/2018 11/28/2019 Season Influenza, Quad, PF, Adjuvanted, 65+ Yrs, IM (FLUAD) 12/12/2019 Seasonal Influenza, Quadriva lent Hd (Fluzone Hd) 11/21/2021,11/22/2020 Seasonal Influenza, Quadriva lent, No Preserve, IM [...] Kori Loco MD [address] [place] [address] 03/16/2023 Office Visit Family Medicine Magda Taylor DO [address] [place] [address] 08/04/2023 Office Visit Rheumatology Jamar Alvarez MD [address] [facility] [place] [address] 08/09/2023 Office Visit Otolaryngology Hal Padilla DO [address] [place] [address] Scheduled Procedures Name Priority Associated Diagnoses Date/Ti [...] D LEVEL ONCE IN A LIFETIME-USE SMARTSET# 35384 Completed 01/18/2018, 02/13/2007 Zoster Vaccines Discontinued 05/09/2019 [...] Not on filedocumented as of this encounter Procedures Procedure Name Priority Date/Time Associated Diagnosis Comments LIPID PANEL WITH DIRECT LDL IF TG IS HIGH Routine 06/23/2022 9:59 AM EDT Dyslipidemia, goal LDL below 100 HEPATIC FUNCTION PANEL Routine 06/23/2022 9:59 AM EDT Hyponatremia BASIC METABOLIC PANEL Routine 06/23/2022 9:59 AM EDT HTN, goal below 140/90 Hyponatremia CBC Routine 06/23/2022 9:59 AM EDT Leg weakness, bilateral documented in this encounter Results * CBC (06/23/2022 9:59 AM EDT) WBC 6.91 4.00 - 10.80 K/uL 06/23/2022 3:17 PM EDT [facility] RBC 4.39 3.85 - 5.15 M/uL 06/23/2022 3:17 PM EDT [facility] HGB 12.6 12.0 - 15.3 g/dL 06/23/2022 3:17 PM EDT [facility] HCT 39.7 36.0 - 45.2 % 06/23/2022 3:17 PM EDT [facility] MCV 90.4 81.5 - 97.5 fL 06/23/2022 3:17 PM EDT [facility] MCH 28.7 27.0 - 34.0 pg 06/23/2022 3:17 PM EDT [facility] MCHC 31.7 32.0 - 36.0 g/dL 06/23/2022 3:17 PM EDT [facility] RDW 13.1 11.5 - 15.5 % 06/23/2022 3:17 PM EDT [facility] PLT 280 140 - 400 K/uL 06/23/2022 3:17 PM EDT LAB[facility] GM MPV 11.9 6.6 - 11.1 fL 06/23/2022 3:17 PM EDT LABORATORY C nRBCs 0 <=0 /100 WBCs 06/23/2022 3:17 PM EDT [facility] [place] Venous blood specimen / Unknown Venipuncture / Unknown 06/23/2022 9:59 AM EDT 06/23/2022 9:59 AM EDT Magda Taylor DO LAB BLOOD ORDERABLES [facility] [address] [place] [address] * HEPATIC FUNCTION PANEL (06/23/2022 9:59 AM EDT) [facility] Albumin 4.3 3.8 - 5.0 g/dL 06/23/2022 3:46 PM EDT [facility] AST 22 10 - 35 U/L 06/23/2022 3:46 PM EDT [facility] Alkaline Phosphatase 82 35 - 130 U/L 06/23/2022 3:46 PM EDT [facility] ALT 20 10 - 35 U/L 06/23/2022 3:46 PM EDT [facility] Bilirubin, Total 0.4 <=1.2 mg/dL 06/23/2022 3:46 PM EDT [facility] Bilirubin, Direct <0.2 0.0 - 0.3 mg/dL 06/23/2022 3:46 PM EDT [facility] Protein 6.4 6.0 - 8.3 g/dL 06/23/2022 3:46 PM EDT [facility] Blood Venous blood specimen / Unknown Venipuncture / Unknown 06/23/2022 9:59 AM EDT 06/23/2022 9:59 AM EDT Magda Taylor DO LAB BLOOD ORDERABLES [facility] C [address] [place] [address] * BASIC METABOLIC PANEL (06/23/2022 9:59 AM EDT) BUN 18 6 - 20 mg/dL 06/23/2022 3:46 PM EDT [facility] Creatinine 0.8 0.5 - 1.0 mg/dL 06/23/2022 3:46 PM EDT [facility] Estimated Glomerular Filtration Rate 76 >=60 mL/min 06/23/2022 3:46 PM EDT [facility] Comment:eGFR is calculated b ased on the CKD-EPI 2020 equation Sodium 141 135 - 146 mmol/L 06/23/2022 3:46 PM EDT [facility] Potassium 4.3 3.5 - 5.1 mmol/L 06/23/2022 3:46 PM EDT [facility] Chloride 103 98 - 107 mmol/L 06/23/2022 3:46 PM EDT [facility] CO2 29 22 - 32 mmol/L 06/23/2022 3:46 PM EDT [facility] Anion Gap 9 7 - 15 mmol/L 06/23/2022 3:46 PM EDT [facility] Glucose 83 70 - 120 mg/dL 06/23/2022 3:46 PM EDT [facility] Calcium 9.5 8.4 - 10.2 mg/dL 06/23/2022 3:46 PM EDT [facility] Blood Venous blood specimen / Unknown Venipuncture / Unknown 06/23/2022 9:59 AM EDT 06/23/2022 9:59 AM EDT Magda Taylor DO LAB BLOOD ORDERABLES [facility] [address] [place] [address] * LIPID PANEL WITH DIRECT LDL IF TG IS HIGH (06/23/2022 9:59 AM EDT) Triglycerides 56 <=174 mg/dL 06/23/2022 3:46 PM EDT [facility] Comment: Triglyceride Reference Ranges (mg/dL): <150 Acceptable 150-174 Borderline high 175-499 High >=500 Very high Cholesterol 162 <200 mg/dL 06/23/2022 3:46 PM EDT [facility] Comment: Total Cholesterol Reference Ranges (mg/dL): <200 Desirable 200-239 Borderline high >=240 High HDL Cholesterol 80 >49 mg/dL 3:46 PM EDT [facility] Comment: HDL Cholesterol Reference Ranges (mg/dL): >=60 High (Desirable) <50 Low (Undesirable) For Females <40 Low (Undesirable) For Males Non-HDL Cholesterol 82 <=159 mg/dL 06/23/2022 3:46 PM EDT [facility] Comment: Non-HDL Cholesterol Reference Range (mg/dL): <100 Target level for high risk ASCVD patient <130 Optimal for general population 130-159 Near optimal for general population 160-189 Borderline High 190-219 High >=220 Very High LDL Cholesterol 71 <=129 mg/dL 06/23/2022 3:46 PM EDT [facility] Comment: LDL Cholesterol Reference Ranges (mg/dL): <70 Target level for high risk ASCVD patient <100 Optimal for general population 100-129 Near optimal for general population 130-159 Borderline high 160-189 High >=190 Very high Blood Venous blood specimen / Unknown Venipuncture / Unknown 06/23/2022 9:59 AM EDT 06/23/2022 9:59 AM EDT Magda Taylor DO LAB BLOOD ORDERABLES [facility] [address] [place] [address] documented in this encounter Visit Diagnoses Diagnosis HTN, goal below 140/90 Unspecified essential hypertension Dyslipidemia, goal LDL below 100 Other and unspecified hyperlipidemia Hyponatremia Hyposmolality and/or hyponatremia Leg weakness, bilateral Other musculoskeletal symptoms referable to limbs documented in this encounter Advance Directives Latest [...] Directives occurred with: Not Discussed Care Teams Wheel Press Clerk Relationship Specialty Start Date End Date Magda Taylor, [address] [place] [id number] PCP - General Family Medicine 11/02/18 documented as of this encounter
--- OUTSIDE RECORDS SUMMARY | 2023-03-01 16:32 | External Medical Summary ---
Author Name Unknown Address Unknown Organization K01:[facility] [place] [address] [facility] [address] Laboratory Report Ordering Provider Test Date Status 02/05/2023 14:27:22 Final Observation Date Value Abnormality Reference (Units ) Status Campylobacter sp DNA.diarrheagenic [Presence] in Stool by CHELO with probe detection 02/05/2023 14:27:22 Negative Negative Final Salmonella sp rpoD gene [Presence] in Stool by CHELO with probe detection 02/05/2023 14:27:22 Negative Negative Final Shigella species+EIEC invasion plasmid antigen H ipaH gene [Presence] in Stool by CHELO with probe detection 02/05/2023 14:27:22 Negative Negative Final Vibrio sp DNA [Identifier] in Specimen by CHELO with probe detection 02/05/2023 14:27:22 Negative Negative Final Yersinia enterocolitica recN gene [Presence] in Stool by CHELO with probe detection 02/05/2023 14:27:22 Negative Negative Final Escherichia coli Stx1 toxin stx1 gene [Presence] in Stool by CHELO with probe detection 02/05/2023 14:27:22 Negative Negative Final Escherichia coli Stx2 toxin stx2 gene [Presence] in Stool by CHELO with probe detection 02/05/2023 14:27:22 Negative Negative Final Norovirus genogroups I and II RNA panel - Stool by CHELO with probe detection 02/05/2023 14:27:22 Negative Negative Final Rotavirus A RNA [Presence] in Stool by CHELO with probe detection 02/05/2023 14:27:22 Negative Negative Final Performing Location [facility] [place] [address] [facility] [address] [facility] [address]
--- OUTSIDE RECORDS SUMMARY | 2023-03-01 16:33 | External Medical Summary | Summary of Care ---
Author Name Unknown Organization [facility] Address [address] [facility] [place] [place] [address] Phone [phone] Care Team Providers Care Crayon Sorting Machine Feeder Name Role Phone RobMagda germain Primary Care Provider Reason for Visit * Reason Comments Acute Pt states the last t wo times she was at physical therapy she got dizzy. Encounter Details Date Type Department Care Team Description 12/17/2022 Office Visit [facility] [address] [place] [address] Johnna Tyson PA-C [address] [place] [address] Other headache syndrome*; Gastroesophageal reflux disease without esophagitis; Acute maxillary sinusitis, recurrence not specified; Dizziness; Family history of diabetes mellitus Allergies Active [...] MCG/ACT nasal sprayIndications: Chronic rhinitis Administer 1 [place] into nostril 2 times a day. Use [...] by mouth 3 times a day. -per [employer] 05/23 270 Tab 1 09/10/2019 Active Additional Information Patient taking differently:1,000 mg OralBID (0700,1900), -per [employer] 05/23, Reported on 05/13/2022 amLODIPine Besylate 2.5 [...] bedtime. 90 Tablet 3 11/02/2021 Active Ipratropium [place] 0.03 % Nasal SolutionIndicatio ns:Chronic rhinitis 1 [...] 11/11/2022 Active Famotidine 20 MG Oral Tablet (Pepcid)Indicatio ns:Gastroesophage al reflux disease without esophagitis Take 1 Tablet by mouth in the morning and 1 Tablet before bedtime. 180 Tablet 3 12/17/2022 Active Azithromycin 250 MG Oral Tablet (Zithromax Z-Jacky)Indications :Acute maxillary sinusitis, recurrence not specified Take two tablets by mouth on first day, then 1 tablet daily until gone 6 Tablet 0 12/17/2022 Active Meclizine HCl 25 MG Oral Tablet (Antivert)Indicat ions:Dizziness Take 1 Tablet by mouth at bedtime as needed for Dizziness. 30 Tablet 1 12/17/2022 Active Famotidine 20 MG Oral Tablet (Pepcid)Indicatio ns:Gastroesophage al reflux disease without esophagitis Take by mouth 1 Tablet in the morning. 90 Tablet 3 12/16/2021 3 Discontinue d(Refill) documented as of this [...] Overview: amlodipine 10mg Hyponatremia 01/18/2018 Overview: Enio RenteriaWpSfslwaa-1026-gm Na Cl 1gm bid Factor 5 Leiden mutation, heterozygous 1 03/20/2017 Overview: H/o DVT left leg 2012-was on coumadin x 6 mths., khang Min-now on asa 325mg History of deep vein thrombosis (DVT) of lower extremity 01/18/2018 Chronic interstitial cystitis without he maturia 01/18/2018 Overview: Enio Arora- weaned off elmiron 2017 Generalized osteoarthritis 01/31/2008 MEMORY DISTURBANCE 03/24/2005 Senile osteoporosis 01/25/2005 Overview: 08/23-+2.5/-2.1--L-m R-consider dc actonel ( st ? [id number] then saw [facility]) Irritable bowel syndrome 04/15/2003 [...] 18 11/27/2018 Overview: Neg 12/22 [place] [facility] [place] Retinal edema 02/06/2010 01/18/2018 Open wound of [...] mRNA, LNP-s, No Pre serve, 2-Dose Series ([employer]) 12/25/2020,05/03/2020,04/12/2020 Pneumococcal Conjugate Vacc, 13 Valent (Prevnar) [...] Sign Reading Time Taken Comments Blood Pressure 144/66 12/17/2022 10:13 AM EDT Pulse 86 12/17/2022 10:13 AM EDT Temperature 35.8 C (96.4 F) 12/17/2022 10:13 AM E DT Respiratory Rate 16 12/17/2022 10:13 AM EDT Oxygen Saturation - - Inhaled Oxygen Concentration - - Weight 85.1 kg (187 lb 9.6 oz) 12/17/2022 10:13 AM EDT Height - - Body Mass Index 31.22 09/29/2022 9:50 AM EDT documented in this encounter Progress Notes * Johnna Tyson PA-C - 12/17/2022 10:29 AM EDT Images from the original note were not included. History of Present Illness Karina Palacios is a 77 year old female that presents for Acute (Pt states the last two times she was at physical therapy she got dizzy. ) Here for dizziness She was doing pt Standing by a table All of a sudden it hit This was on Tuesday. She felt like she was wobbly Comes and goes since Almost daily She does try to watch her fluids - she has to restrict for her kidney doctor. + headache the last 2-3 days This is in [facility]. Tuesday it was both temples Heartburn is bad. Taking pepcid ac and tums. Using her flonase Fh dm Glucose Results: Lab Results Component Value Date/Time GLUCOSE - [facility] 83 06/23/2022 09:59 AM GLUCOSE - [facility] 90 06/12/2021 09:54 AM GLUCOSE - [facility] 112 01/01/2021 02:56 PM GLUCOSE - [facility] 83 01/25/2020 01:02 PM GLUCOSE - [facility] 81 12/12/2019 09:42 AM GLUCOSE - [facility] 83 12/26/2018 10:17 AM GLUCOSE, URINE - [facility] Negative 05/08/2020 12:17 PM GLUCOSE, URINE - [facility] neg 03/22/2019 12:00 AM GLUCOSE, URINE - [facility] neg 12/27/2018 03:58 PM GLUCOSE, URINE - [facility] NEGATIVE 02/14/2018 10:21 AM [facility]SE-[facility] LAB 103 (A) 06/01/2018 12:00 AM GLUCOSE-[facility]IDE LAB 116 (A) 05/02/2018 12:00 AM GLUCOSE-OUTSIDE LAB 133 (A) 11/02/2017 12:00 AM Physical Exam Vitals: 12/17/22 1013 Temp: 35.8 C (96.4 F) Pulse: 86 Resp: 16 BP: 144/66 BP Readings from Last 3 Encounters: 12/17/22 144/66 11/03/22 124/80 10/29/22 122/82 Wt Readings from Last 3 Encounters: 12/17/22 85.1 kg (187 lb 9.6 oz) 11/03/22 83 kg (183 lb) 10/29/22 83.5 kg (184 lb) BMI Readings from Last 3 Encounters: 12/17/22 31.22 kg/m 11/03/22 30.45 kg/m 10/29/22 30.62 kg/m Ht Readings from Last 3 Encounters: 09/29/22 1.651 m (5' 5") 08/10/22 1.651 m (5' 5") 06/21/22 1.651 m (5' 5") General: alert, healthy, and no distress Head: Normocephalic, No masses, lesions, tenderness or abnormalities Eye Exam: PERRLA, extraocular movements intact, conjunctiva are pink and non- injected, sclera clear Ears: External ears normal, Canals clear, R TM air and or fluid interface, L TM air and or fluid interface Nose: purulent rhinorrhea, mucosal edema, mucosal erythema Oropharynx: no exudate, no erythema, lips, buccal mucosa, and tongue normal, mucous membranes are moist, and post nasal drip Neck: supple, no bruits, thyroid normal size, non-tender, without nodularity, moderate anterior cervical adenopathy bilaterally Heart: regular rate & rhythm, no murmur, no gallops, S-1 normal, and S-2 normal Lungs: chest symmetric with normal AP diameter, no chest deformities noted, no chest wall tenderness, lungs clear to auscultation Neuro Exam: alert & oriented x 3 with fluent speech, no focal motor/sensory deficits, gait normal, reflexes normal and symmetric Assessment and Plan Other headache syndrome (Primary) - ERYTHROCYTE SEDIMENTATION RATE (ESR); Future; Expected date: 12/17/2022 Gastroesophageal reflux disease without esophagitis - Famotidine 20 MG Oral Tablet (Pepcid); Take 1 Tablet by mouth in the morning and 1 Tablet before bedtime. Acute maxillary sinusitis, recurrence not specified - Azithromycin 250 MG Oral Tablet (Zithromax Z-Jacky); Take two tablets by mouth on first day, then 1tablet daily until gone Dizziness - Meclizine HCl 25 MG Oral Tablet (Antivert); Take 1 Tablet by mouth at bedtime as needed for Dizziness. Family history of diabetes mellitus - GLUCOSE; Future; Expected date: 12/17/2022 comfort care measures discussed saline nasal spray with bulb syringe plenty of fluids Tylenol per dosing recommendations for low grade fever Humidifier Wrap-Up Dose increase stomach meds Treat sinus and the ear Fluids Lab work to rule out temporal arteritis Time: I spent a total of 10-19 minutes (exact time 17 mins) on the date of service in preparation, delivery, and documentation of the care provided to Karina Palacios excluding any time spent in the performance of separately billed services. Johnna Tyson PA-C 12/17/2022 10:37 AM documented in this encounter Nursing Notes * TRISTON Waddell - 12/17/2022 10:13 AM EDT The patient has been properly identified by confirmation of name and date of . Chief Complaint Patient presents with Acute Pt states the last two times she was at physical therapy she got dizzy. documented in this encounter Plan of Treatment Upcoming Encounters Date Type Specialty Care Team Description 12/22/2022 Office Visit Orthopedics Kori Loco MD [address] [place] [address] 03/16/2023 Office Visit Family Medicine Magda aTylor DO [address] [place] [address] 08/04/2023 Office Visit Rheumatology Jamar Alvarez MD [facility] [place] [address] 08/09/2023 Office Visit Otolaryngology Hal Padilla DO [address] [place] [address] Pending Results Name Type Priority Associated Diagnoses Date /Time ERYTHROCYTE SEDIMENTATION RATE (ESR) Lab Routine Other headache syndrome 12/17/2022 10:48 AM EDT GLUCOSE Lab Routine Family history of diabetes mellitus 12/17/2022 10:48 AM EDT Scheduled Orders Name Type Priority Associated Diagnoses Orde r Schedule ERYTHROCYTE SEDIMENTATION RATE (ESR) Lab Routine Other headache syndrome Expected: 12/17/2022 (Approximate), Expires: 12/17/2023 GLUCOSE Lab Routine Family history of diabetes mellitus Expected: 12/17/2022 (Approximate), Expires: 12/17/2023 Scheduled Procedures Name Priority Associated Diagnoses Date/Ti [...] Additional history exists DXA Scan 09/21/2024 09/21/2022, 0708/2020, 08/09/2018, Additional history exists COLONOSCOPY-EVERY 5 YRS AGES 18-100 05/29/2027 05/28/2022, 08/01/2020, 12/08/2018, Additional history exists DTaP,Tdap,and Td Vaccines (2 - Td or Tdap) 12/28/2028 12/28/2018, 12/22/2004 VITAMIN D LEVEL ONCE IN A LIFETIME-USE SMARTSET# [id number] Completed 01/18/2018, 02/13/2007 Zoster Vaccines Discontinued 05/09/2019 [...] as of this encounter Visit Diagnoses Diagnosis Other headache syndrome- Primary Gastroesophageal reflux disease without esophagitis Esophageal reflux Acute maxillary sinusitis, recurrence not specified Dizziness Dizziness and giddiness Family history of diabetes mellitus documented in [...] Directives occurred with: Not Discussed Care Teams Crayon Sorting Machine Feeder Relationship Specialty Start Date End Date Magda Taylor, [address] [place] [address] PCP - General Family Medicine 11/02/18 documented as of this encounter
--- OUTSIDE RECORDS SUMMARY | 2023-03-01 16:33 | External Medical Summary ---
Author Name Unknown Address Unknown Organization K01:[facility] [address] [place] [address] Laboratory Report Ordering Provider Test Date Status SYLVESTER STALEY 12/17/2022 10:48:08 Final Observation Date Value Abnormality Reference (Units ) Status Glucose 12/17/2022 10:48:08 78 70-120 (mg /dL) Final Performing Location [facility] [address] [place] [address]
--- OUTSIDE RECORDS SUMMARY | 2023-03-01 16:33 | External Medical Summary | Summary of Care ---
Author Name Unknown Organization [facility] Address [address] [facility] [address] Phone [phone] Care Team Providers Care Shearing Shed Worker Name Role Phone Claudia Magda Samuel DEVI Primary Care Provider Encounter Details Date Type Department Care Team Description 12/11/2022 Immunization Ancillary [facility] [address] [facility] [place] [address] [facility] Flu Shot [facility] Prac [address] [facility] [place] [address] Arrived Allergies Active Allergy Reactions Severity Noted Date [...] as of this encounter (statuses as of 12/11/2022) Medications Medication Sig Dispensed Refills Start Date End Date Status ASPIRIN 325 MG PO TABS 1 daily 0 Active acetaminophen (TYLENOL) 500 MG Tablet Take 2 Tablets by mouth in the morning and 2 Tablets before bedtime. 100 Tab 0 02/08/2018 Active Azelastine-Fluticas one (DYMISTA) 137-50 MCG/ACT nasal sprayIndications:Ch ronic rhinitis Administer 1 [place] into nostril 2 times a day. Use [...] by mouth 3 times a day. -per [employer] 05/23 270 Tab 1 09/10/2019 Active Additional Information Patient taking differently:1,000 mg OralBID (0700,1900), -per [employer] 05/23, Reported on 05/13/2022 amLODIPine Besylate 2.5 [...] before bedtime. 90 Tablet 3 11/02/2021 Active Famotidine 20 MG Oral Tablet (Pepcid)Indications :Gastroesophageal reflux disease without esophagitis Take by mouth 1 Tablet in the morning. 90 Tablet 3 12/16/2021 Active Ipratropium [place] 0.03 % Nasal SolutionIndications :Chronic rhinitis 1 [...] a week 20 mL 12 08/10/2022 Active Fluticasone Propionate 50 MCG/ACT Nasal Suspension (Flonase) Administer 2 Sprays into each nostril in the morning. 16 g 1 11/11/2022 Active documented as of this encounter (statuses as of 12/11/2022) Active Problems Problem Noted Date Spondylosis of lumbar region without mye lopathy or radiculopathy 02/17/2018 Overview: 02/21-xr-xle DDD L1-2, L4-5 with facet arthropathy Gastroesophageal reflux disease without esophagitis 01/18/2018 Overview: EGD-11/2013-nml, bx mild inflm--nexium 40mg ,zantac 150mg hs History of CVA in adulthood 01/18/2018 Overview: 91166 - Pontine per pt--asa 325 mg. HTN, goal below 140/90 01/18/2018 Overview: amlodipine 10mg Hyponatremia 01/18/2018 Overview: Enio RenteriaEjEoctzxo-9431-hz Na Cl 1gm bid Factor 5 Leiden [...] 08/23-+2.5/-2.1--L-m R-consider dc actonel ( st ? [id number] then saw Ansley) Irritable bowel syndrome 04/15/2003 Overview: Csope 09/2013-nml --rpt 5 yrs(son pre-can P) DJD, CERVICAL SPINE 05/22/2002 Mild intermittent asthma without complic ation 01/25/2002 Overview: disha documented as of this encounter (statuses as of 12/11/2022) Resolved Problems Problem Noted Date Resolved Date History of mammogram 01/18/2018 11/27/2018 Overview: Neg 11/22 per pt History of Papanicolaou smear of cervix 01/19/20 18 11/27/2018 Overview: Neg 12/22 per pt Clemercedes Retinal edema 02/06/2010 01/18/2018 Open wound of [...] 05/22/2002 05/0 06/2003 AC MAXILLARY SINUSITIS 10/11/2001 4 ACUTE URI NOS 10/11/2001 07/09/2003 Urinary frequency 11/27/2018 documented as of this encounter (statuses as of 12/11/2022) Immunizations Name Administration Dates Next Due COVID-19 [...] Loco MD [address] [place] [address] 03/16/2023 Office Visit Family Medicine Magda Taylor, DO [address] [place] [address] 08/04/2023 Office Visit Rheumatology Jamar Alvarez MD [address] [place] [address] 08/09/2023 Office Visit Otolaryngology Hal Padilla DO [address] [place] [address] Scheduled Procedures Name Priority Associated Diagnoses Date/Ti [...] Vaccine ( season) 2022 12/25/2020, 05/03/2020, 04/12/2020 Influenza Vaccine (FLU shot) (#1) 2022 12/11/2022, 11/21/2021, 11/22/2020, Additional history exists GFR 06/24/2023 06/23/2022, 10/06, 06/12/2021, Additional history exists DXA Scan 09/21/2024 09/21/2022, 0708/2020, 08/09/2018, Additional history exists COLONOSCOPY-EVERY 5 YRS AGES 18-100 05/29/2027 05/28/2022, 08/01/2020, 12/08/2018, Additional history exists DTaP,Tdap,and Td Vaccines (2 - Td or Tdap) 12/28/2028 12/28/2018, 12/22/2004 VITAMIN D LEVEL ONCE IN A LIFETIME-USE SMARTSET# [id number] Completed 01/18/2018, 02/13/2007 Zoster Vaccines Discontinued 05/09/2019 GARDASIL-HPV IMMUNIZATION SERIES Aged Out No longer [...] Directives occurred with: Not Discussed Care Teams Shearing Shed Worker Relationship Specialty Start Date End Date Magda Taylor, DO [address] [place] [address] PCP - General Family Medicine 11/02/18 documented as of this encounter
--- OUTSIDE RECORDS SUMMARY | 2023-03-01 16:33 | External Medical Summary | Summary of Care ---
Author Name Unknown Organization [facility] Address [address] [place] [facility] [place] [address] Phone [phone] Care Team Providers Care Station Baggage Porter Name Role Phone Claudia Magda Baker Primary Care Provider Reason for Visit * Reason Comments Outpatient Testing Encounter Details Date Type Department Care Team Description 06/23/2022 Laboratory Laboratory, [facility] [address] [place] [address] [facility] [address] [place] [address] HTN, goal below 140/90; Dyslipidemia, [...] MCG/ACT nasal sprayIndications: Chronic rhinitis Administer 1 [place] into nostril 2 times a day. Use [...] by mouth 3 times a day. -per [employer] 05/23 270 Tab 1 09/10/2019 Active Additional Information Patient taking differently:1,000 mg OralBID (0700,1900), -per [employer] 05/23, Reported on 05/13/2022 amLODIPine Besylate 2.5 [...] Information Patient not taking.Reported on 05/13/2022 Ipratropium [place] 0.03 % Nasal SolutionIndicatio ns:Chronic rhinitis 1 [...] Overview: amlodipine 10mg Hyponatremia 01/18/2018 Overview: Enio RenteriaHjVpveegf-3880-rk Na Cl 1gm bid Factor 5 Leiden [...] 08/23-+2.5/-2.1--L-m R-consider dc actonel ( st ? [id number] then saw Ansley) Irritable bowel syndrome 04/15/2003 [...] mRNA, LNP-s, No Pre serve, 2-Dose Series ([employer]) 12/25/2020,05/03/2020,04/12/2020 Pneumococcal Conjugate Vacc, 13 Valent (Prevnar) [...] Kori Loco MD [address] [place] [address] 03/16/2023 Office Visit Family Medicine Magda Taylor DO [address] [place] [address] 08/04/2023 Office Visit Rheumatology Jamar Alvarez MD [address] [place] [address] 08/09/2023 Office Visit Otolaryngology Hal Padilla DO [address] [place] [address] Scheduled Procedures Name Priority Associated Diagnoses Date/Ti [...] D LEVEL ONCE IN A LIFETIME-USE SMARTSET# [id number] Completed 01/18/2018, 02/13/2007 Zoster Vaccines Discontinued 05/09/2019 [...] /100 WBCs 06/23/2022 3:17 PM EDT LAB[facility]ATORY [facility] Blood Venous blood specimen / Unknown Venipuncture / Unknown 06/23/2022 9:59 AM EDT 06/23/2022 9:59 AM EDT Magda Taylor DO LAB BLOOD ORDERABLES LAB[facility]ATORY [facility] [address] [place] [address] * HEPATIC FUNCTION PANEL (06/23/2022 9:59 AM EDT) [facility] Albumin 4.3 3.8 - 5.0 g/dL 06/23/2022 [...] LAB BLOOD ORDERABLES LABORATORY [address] [place] [address] * BASIC METABOLIC PANEL (06/23/2022 [...] Magda Taylor DO LAB BLOOD ORDERABLES LAB[facility]ATORY [facility] [address] [place] [address] * LIPID PANEL WITH DIRECT LDL IF TG IS HIGH (06/23/2022 9:59 AM EDT) Triglycerides 56 <=174 mg/dL 06/23/2022 3:46 PM EDT LABORATORY [facility] Comment: Triglyceride Reference Ranges (mg/dL): <150 Acceptable 150-174 Borderline high 175-499 High >=500 Very high Cholesterol 162 <200 mg/dL 06/23/2022 3:46 PM EDT LABORATORY [facility] Comment: Total Cholesterol Reference Ranges (mg/dL): <200 Desirable 200-239 Borderline high >=240 High HDL Cholesterol 80 >49 mg/dL 3:46 PM EDT LAB[facility]ATORY [facility] Comment: HDL Cholesterol Reference Ranges (mg/dL): >=60 High (Desirable) <50 Low (Undesirable) For Females <40 Low (Undesirable) For Males Non-HDL Cholesterol 82 <=159 mg/dL 06/23/2022 3:46 PM EDT LAB[facility]ATORY [facility] Comment: Non-HDL Cholesterol Reference Range (mg/dL): <100 Target level for high risk ASCVD patient <130 Optimal for general population 130-159 Near optimal for general population 160-189 Borderline High 190-219 High >=220 Very High LDL Cholesterol 71 <=129 mg/dL 06/23/2022 3:46 PM EDT LAB[facility]ATORY [facility] Comment: LDL Cholesterol Reference Ranges (mg/dL): <70 Target level for high risk ASCVD patient <100 Optimal for general population 100-129 Near optimal for general population 130-159 Borderline high 160-189 High >=190 Very high Blood Venous blood specimen / Unknown Venipuncture / Unknown 06/23/2022 9:59 AM EDT 06/23/2022 9:59 AM EDT Magda Taylor DO LAB BLOOD ORDERABLES LAB[facility]ATORY [facility] [address] [place] [address] documented in this encounter Visit Diagnoses Diagnosis [...] Directives occurred with: Not Discussed Care Teams Station Baggage Porter Relationship Specialty Start Date End Date Magda Taylor, [address] [place] [address] PCP - General Family Medicine 11/02/18 documented as of this encounter
--- OUTSIDE RECORDS SUMMARY | 2023-03-01 16:33 | External Medical Summary | Summary of Care ---
Author Name Unknown Organization [facility] Address [address] [place] [facility] [place] [address] Phone [phone] Care Team Providers Care Gasoline Finisher Name Role Phone Antoniashayy Magda Samuel DEVI Primary Care Provider [phone] Reason for Visit * Reason Comments Outpatient Testing Encounter Details Date Type Department Care Team Description 12/17/2022 Laboratory Laboratory[facility] [address] [place] [address] [facility] [address] [place] [address] [facility] Other*[id number]; Other headache syndrome; Family history of diabetes [...] MCG/ACT nasal sprayIndications:Ch ronic rhinitis Administer 1 [place] into nostril 2 times a day. Use [...] by mouth 3 times a day. -per [email or web address] 05/23 270 Tab 1 09/10/2019 Active Additional Information Patient taking differently:1,000 mg OralBID (0700,1900), -per [employer] 05/23, Reported on 05/13/2022 amLODIPine Besylate 2.5 [...] bedtime. 90 Tablet 3 11/02/2021 Active Ipratropium [place] 0.03 % Nasal SolutionIndications :Chronic rhinitis 1 [...] Overview: amlodipine 10mg Hyponatremia 01/18/2018 Overview: Enio RenteriaAiRsjpnau-0993-hf Na Cl 1gm bid Factor 5 Leiden [...] 08/23-+2.5/-2.1--L-m R-consider dc actonel ( st ? [id number] then saw Ansley) Irritable bowel syndrome 04/15/2003 [...] Kori Loco MD [address] [place] [address] 03/16/2023 Office Visit Family Medicine Magda Taylor DO [address] [place] [address] 08/04/2023 Office Visit Rheumatology Jamar Alvarez MD [facility] [place] [address] 08/09/2023 Office Visit Otolaryngology Hal Padilla DO [address] [place] [address] Pending Results Name Type Priority Associated Diagnoses Date /Time MYCODE SUBSEQUENT ADULT Lab Routine [employer] Other*[id number] 12/17/2022 10:48 AM EDT ERYTHROCYTE SEDIMENTATION RATE (ESR) Lab Routine Other headache syndrome 12/17/2022 10:48 AM EDT GLUCOSE Lab Routine Family history of diabetes mellitus 12/17/2022 10:48 AM EDT MYCODE SST1 Lab Routine [employer] Other*[id number] 12/17/2022 10:48 AM EDT MYCODE SST2 Lab Routine [employer] Other*[id number] 12/17/2022 10:48 AM EDT Scheduled Procedures Name [...] D LEVEL ONCE IN A LIFETIME-USE SMARTSET# [id number] Completed 01/18/2018, 02/13/2007 Zoster Vaccines Discontinued 05/09/2019 [...] this encounter Visit Diagnoses Diagnosis [employer] Other*[id number] Other headache syndrome Family history of diabetes [...] Directives occurred with: Not Discussed Care Teams Gasoline Finisher Relationship Specialty Start Date End Date Magda Taylor, DO [address] [place] [address] PCP - General Family Medicine 11/02/18 documented as of this encounter
--- OUTSIDE RECORDS SUMMARY | 2023-03-01 16:33 | External Medical Summary | Summary of Care ---
Author Name Unknown Organization [facility] Address [address] [facility] [place] [address] Phone [phone] Care Team Providers Care Sheriff'S Sergeant Name Role Phone Claudia Magda Baker Primary Care Provider [phone] Reason for Visit * Reason Comments Outpatient Testing Encounter Details Date Type Department Care Team Description 06/23/2022 Laboratory Laboratory, [facility] [address] [place] [address] [facility] [address] [place] [address] HTN, goal below 140/90; Dyslipidemia, [...] MCG/ACT nasal sprayIndications: Chronic rhinitis Administer 1 [place] into nostril 2 times a day. Use [...] by mouth 3 times a day. -per [employer] 05/23 270 Tab 1 09/10/2019 Active Additional Information Patient taking differently:1,000 mg OralBID (0700,1900), -per [employer] 05/23, Reported on 05/13/2022 amLODIPine Besylate 2.5 [...] Information Patient not taking.Reported on 05/13/2022 Ipratropium [place] 0.03 % Nasal SolutionIndicatio ns:Chronic rhinitis 1 [...] Overview: amlodipine 10mg Hyponatremia 01/18/2018 Overview: Enio RenteriaZoQgmirjw-6233-lx Na Cl 1gm bid Factor 5 Leiden [...] 08/23-+2.5/-2.1--L-m R-consider dc actonel ( st ? [phone] then saw Ansley) Irritable bowel syndrome 04/15/2003 [...] mRNA, LNP-s, No Pre serve, 2-Dose Series ([employer]) 12/25/2020,05/03/2020,04/12/2020 Pneumococcal Conjugate Vacc, 13 Valent (Prevnar) [...] Kori Loco MD [address] [place] [address] 03/16/2023 Office Visit Family Medicine Magda Taylor DO [address] [place] [address] 08/04/2023 Office Visit Rheumatology Jamar Alvarez MD [address] [place] [address] 08/09/2023 Office Visit Otolaryngology Hal Padilla DO [address] [place] [address] Scheduled Procedures Name Priority Associated Diagnoses Date/Ti [...] D LEVEL ONCE IN A LIFETIME-USE SMARTSET# [id number] Completed 01/18/2018, 02/13/2007 Zoster Vaccines Discontinued 05/09/2019 [...] /100 WBCs 06/23/2022 3:17 PM EDT LABORATORY [facility] Blood Venous blood specimen / Unknown Venipuncture / Unknown 06/23/2022 9:59 AM EDT 06/23/2022 9:59 AM EDT Magda Taylor DO LAB BLOOD ORDERABLES LABORATORY [facility] [address] [place] [address] * HEPATIC FUNCTION PANEL (06/23/2022 9:59 AM EDT) [facility] Albumin 4.3 3.8 - 5.0 g/dL [...] LAB BLOOD ORDERABLES LABORATORY C [address] [place] [address] * BASIC METABOLIC PANEL (06/23/2022 [...] Magda Taylor DO LAB BLOOD ORDERABLES LABORATORY [facility] [address] [place] [address] * LIPID PANEL WITH DIRECT LDL IF TG IS HIGH (06/23/2022 9:59 AM EDT) Triglycerides 56 <=174 mg/dL 06/23/2022 3:46 PM EDT LABORATORY [facility] Comment: Triglyceride Reference Ranges (mg/dL): <150 Acceptable 150-174 Borderline high 175-499 High >=500 Very high Cholesterol 162 <200 mg/dL 06/23/2022 3:46 PM EDT LABORATORY [facility] Comment: Total Cholesterol Reference Ranges (mg/dL): <200 Desirable 200-239 Borderline high >=240 High HDL Cholesterol 80 >49 mg/dL 3:46 PM EDT LABORATORY [facility] Comment: HDL Cholesterol Reference Ranges (mg/dL): >=60 High (Desirable) <50 Low (Undesirable) For Females <40 Low (Undesirable) For Males Non-HDL Cholesterol 82 <=159 mg/dL 06/23/2022 3:46 PM EDT LABORATORY [facility] Comment: Non-HDL Cholesterol Reference Range (mg/dL): <100 Target level for high risk ASCVD patient <130 Optimal for general population 130-159 Near optimal for general population 160-189 Borderline High 190-219 High >=220 Very High LDL Cholesterol 71 <=129 mg/dL 06/23/2022 3:46 PM EDT LABORATORY [facility] Comment: LDL Cholesterol Reference Ranges (mg/dL): <70 Target level for high risk ASCVD patient <100 Optimal for general population 100-129 Near optimal for general population 130-159 Borderline high 160-189 High >=190 Very high Blood Venous blood specimen / Unknown Venipuncture / Unknown 06/23/2022 9:59 AM EDT 06/23/2022 9:59 AM EDT Magda Taylor DO LAB BLOOD ORDERABLES LABORATORY [facility] [address] [place] [address] documented in this encounter Visit Diagnoses Diagnosis [...] Directives occurred with: Not Discussed Care Teams Sheriff'S Sergeant Relationship Specialty Start Date End Date Magda Taylor, [address] [place] [address] PCP - General Family Medicine 11/02/18 documented as of this encounter
--- OUTSIDE RECORDS SUMMARY | 2023-03-01 16:33 | External Medical Summary ---
Author Name Unknown Address Unknown Organization K01:LABORATORY [facility] - [address] [place] [address] Laboratory Report Ordering Provider Test Date Status LOAN HANSEN 12/17/2022 10:48:08 Final Observation Date Value Abnormality Reference (Units ) Status MYCODE SPECIMEN-SST 12/17/2022 10:48:08 Freezing of extracted DNA, whole blood and/or serum. Final Performing Location LABORATORY [facility] - [address] [facility] [address]
--- OUTSIDE RECORDS SUMMARY | 2023-03-01 16:33 | External Medical Summary | Summary of Care ---
Author Name Unknown Organization [facility] Address [address] [facility] [place] [address] Phone [phone] Care Team Providers Care Poultry Hanger Name Role Phone Magda Taylor DO Primary Care Provider [phone] Encounter Details Date Type Department Care Team Description 12/10/2022 Orders Only [facility] [address] [place] [address] Magda Taylor DO [address] [place] [address] Allergies Active Allergy Reactions Severity Noted Date [...] as of this encounter (statuses as of 12/10/2022) Medications Medication Sig Dispensed Refills Start Date End Date Status ASPIRIN 325 MG PO TABS 1 daily 0 Active acetaminophen (TYLENOL) 500 MG Tablet Take 2 Tablets by mouth in the morning and 2 Tablets before bedtime. 100 Tab 0 02/08/2018 Active Azelastine-Fluticas one (DYMISTA) 137-50 MCG/ACT nasal sprayIndications:Ch ronic rhinitis Administer 1 [place] into nostril 2 times a day. Use [...] by mouth 3 times a day. -per [employer] 05/23 270 Tab 1 09/10/2019 Active Additional Information Patient taking differently:1,000 mg OralBID (0700,1900), -per [employer] 05/23, Reported on 05/13/2022 amLODIPine Besylate 2.5 [...] morning. 90 Tablet 3 12/16/2021 Active Ipratropium [place] 0.03 % Nasal SolutionIndications :Chronic rhinitis 1 [...] as of this encounter (statuses as of 12/10/2022) Active Problems Problem Noted Date Spondylosis of lumbar region without mye lopathy or radiculopathy 02/17/2018 Overview: 02/21-xr-xle DDD L1-2, L4-5 with facet arthropathy Gastroesophageal reflux disease without esophagitis 01/18/2018 Overview: EGD-11/2013-nml, bx mild inflm--nexium 40mg ,zantac 150mg hs History of CVA in adulthood 01/18/2018 Overview: - Pontine per pt--asa 325 mg. HTN, goal below 140/90 01/18/2018 Overview: amlodipine 10mg Hyponatremia 01/18/2018 Overview: Enio RenteriaWvTimqqei-0327-fa Na Cl 1gm bid Factor 5 Leiden [...] 08/23-+2.5/-2.1--L-m R-consider dc actonel ( st ? [id number] then saw Ansley) Irritable bowel syndrome 04/15/2003 Overview: Csope 09/2013-nml --rpt 5 yrs(son pre-can P) DJD, CERVICAL SPINE 05/22/2002 Mild intermittent asthma without complic ation 01/25/2002 Overview: disha documented as of this encounter (statuses as of 12/10/2022) Resolved Problems Problem Noted Date Resolved Date [...] 04/15/20032017 NONALLERGIC RHINITIS 09/11/2002 11/27/2018 Overview: On astelin,jasone,atrovent NS AC SUPP OTITIS MEDIA, RIGHT 05/22/2002 05/0 06/2003 AC MAXILLARY SINUSITIS 10/11/2001 4 ACUTE URI NOS 10/11/2001 07/09/2003 Urinary frequency 11/27/2018 documented as of this encounter (statuses as of 12/10/2022) Immunizations Name Administration Dates Next Due COVID-19 [...] Loco MD [address] [place] [address] 03/16/2023 Office Visit Family Medicine Magda Taylor, DO [address] [place] [address] 08/04/2023 Office Visit Rheumatology Jamar Alvarez MD [address] [place] [address] 08/09/2023 Office Visit Otolaryngology Hal Padilla DO [address] [place] [address] Scheduled Procedures Name Priority Associated Diagnoses Date/Ti [...] 04/12/2020 Influenza Vaccine (FLU shot) (#1) 2022 11/21/2021, 11/22/2020, 12/12/2019, Additional history exists GFR 06/24/2023 06/23/2022, 2 08/2021, 06/12/2021, Additional history exists DXA Scan 09/21/2024 09/21/2022, 07/0 08/2020, 08/09/2018, Additional history exists COLONOSCOPY-EVERY 5 YRS AGES 18-100 05/29/2027 05/28/2022, 08/01/2020, 12/08/2018, Additional history exists DTaP,Tdap,and Td Vaccines (2 - Td or Tdap) 12/28/2028 12/28/2018, 12/22/2004 VITAMIN D LEVEL ONCE IN A LIFETIME-USE SMARTSET# [id number] Completed 01/18/2018, 02/13/2007 Zoster Vaccines Discontinued 05/09/2019 [...] Procedure Name Priority Date/Time Associated Diagnosis Comments MAMMOGRAM SCREENING BILATERAL Routine 12/09/2022 documented in this encounter Results * MAMMOGRAM SCREENING BILATERAL (12/09/2022) Anatomical Region Laterality Modality Breast Bilateral Other 12/09/2022 Magda Taylor DO RAD MAMMOGRAPHY documented in this encounter Advance Directives Latest [...] Directives occurred with: Not Discussed Care Teams Poultry Hanger Relationship Specialty Start Date End Date Magda Taylor DO [address] [place] [address] PCP - General Family Medicine 11/02/18 documented as of this encounter
--- OUTSIDE RECORDS SUMMARY | 2023-03-01 16:33 | External Medical Summary | Continuity of Care Document ---
Author Name Unknown Organization [facility] [address] [facility] 2 Address [address] [id number] Care Team Providers Care Warehouse Shipper Name Role Phone Magda Taylor Primary Care Physician [phone] [facility] [id number] Date(s): 11/18/22 - 11/18/22 [facility] [address] [facility] [address] [id number] Encounter Diagnosis SK (seborrheic keratosis)(Discharge Diagnosis) - 11/18/22 Discharge Disposition: Home or Self Care Attending Physician: MD Cheung David L Referring Physician: KEE Valencia Dawn M Allergies, Adverse Reactions, Alerts Substance Reaction Severity Status bacitracin rash Active sulfa drugs unknown Active Assessment and Plan Extracted from: Title:Clinical Document Author:MD Cheung David L Date:11/18/22 OUTPATIENT NOTE Name: TATIANA ESCOBAR Patient Number:[id number] : 1945 Date of Service: 11/18/2022 _ Ms Jha is in with a growth in her chest discomfort the last couple months. Seems to be getting bigger. He is irritated. She no prior history of skin cancer. Physical examination: Well-developed well-nourished white female type II skin. Alert and oriented x3. She has a 5 mm verruca hyperkeratotic flame papule in the left medial chest. Impression: Inflamed seborrheic keratosis doubt SCC on the left chest. Plan: After discussing the procedure risks benefits and scarring, she gives verbal consent for shave removal. After 1% Xylocaine with epinephrine, lesion the left chest was shave removed and the base was treated with electrocautery. She tolerated very well. Wound care instruction given. Sun protection. She return for recheck on a as needed basis. Medications albuterol 0.63 mg/3 mL (0.021%) inhalation solution Start: 07/16/11 15:25:00, NEB, tid, PRN: Wheezing Start Date: 07/16/11 Status: Ordered aspirin 162 mg oral delayed release tablet Start: 06/27/12 14:55:00, 1 tab, PO, Daily Start Date: 06/27/12 Status: Ordered calcium and vitamin D combination Start: 07/19/11 13:58:00, 1000 mg/400 iu (1 tab), PO, Daily Start Date: 07/19/11 Status: Ordered esomeprazole Start: 07/19/11 13:57:00, 40 mg =, PO, Daily Start Date: 07/19/11 Status: Ordered famotidine 20 mg oral tablet Start: 12/03/21 15:50:00 EDT, 1 tab, PO, Daily Start Date: 12/03/21 Status: Ordered Flonase 0.05 mg/inh nasal spray Start: 07/16/11 15:30:00, 2 spray, intranasal, Daily Start Date: 07/16/11 Status: Ordered ipratropium nasal 21 mcg/inh spray Start: 07/19/11 14:03:00, 1 spray, intranasal, bid, PRN: as needed for allergy symptoms Start Date: 07/19/11 Status: Ordered montelukast 10 mg oral tablet Start: 12/03/21 15:50:00 EDT, 1 tab, PO, qPM Start Date: 12/03/21 Status: Ordered Norvasc Start: 07/16/11 15:29:00, 10 mg =, PO, Daily Start Date: 07/16/11 Status: Ordered Problem List Condition Confirmation Course Effective Dates Status Health St atus Informant Asthma Confirmed Active DVT (deep venous thrombosis) Confirmed Active Family history of melanoma 1 Confirmed Active Family history of skin cancer 2 Confirmed Active Frequent UTI Confirmed Active GERD Confirmed Active HYPERTENSION Confirmed Active Hyponatremia Confirmed Active Infarct 3 Confirmed Active Osteoporosis, senile Confirmed Active Recurrent sinus infections Confirmed Active 1Brother 2Mother- SCC, Brother-Melanoma 3Possible right hemispheric infarct Diagnosis Diagnosis Type Effective Dates Health Status Cl inical Service Informant SK (seborrheic keratosis) Discharge Diagnosis 11/18/22 Non-Specified Procedures Procedure Date Related Diagnosis Body Site Status Shave biopsy and cauterization of skin 11/18/22 Completed cryosurgery of the cervix Completed L wrist surgery Completed Left great toe. Removal of a black nevus and toenail with negative findings Completed R arm surgery Completed Social History Social History Type Response Smoking Status Former Smoker, quit > 1 yr Sex Female Outpatient Note * MD Jonatan, Andre Baker: PERFORM Event Display: .Outpt Note Authored Date: [id number] OUTPATIENT NOTE Name: TATIANA ESCOBAR Patient Number:[id number] : 1945 Date of Service: 11/18/2022 _ Ms Jha is in with a growth in her chest discomfort the last couple months. Seems to be gettingbigger. He is irritated. She no prior history of skin cancer. Physical examination: Well-developed well-nourished white female type II skin. Alert and oriented x3. She has a 5 mm verruca hyperkeratotic flame papule in the left medial chest. Impression: Inflamed seborrheic keratosis doubt SCC on the left chest. Plan: After discussing the procedure risks benefits and scarring, she gives verbal consent for shave removal. After 1% Xylocaine with epinephrine, lesion the left chest was shave removed and the basewas treated with electrocautery. She tolerated very well. Wound care instruction given. Sun protection. She return for recheck on a as needed basis. Electronic Signature on File Electronically Reviewed/Signed by: Andre Cheung MD Author Signature Dt/Tm:11/18/2022 01:26 PM Department of Dermatology DLS Patient Care team information Care Team Personnel Name: Jamarcus Huerta Amy Position: Pharmacist Schedule II Member Role: Pharmacy - Lifetime Address: Address: [facility] [address] [place] [address] [place] Name: Jamarcus Mckeon Francis Position: Pharmacist Schedule II Member Role: Pharmacy - Lifetime Address: Address: [facility] [address] [place] [address] [place] Name: Jamarcus Bhatt Paul T Position: Pharmacist Schedule II Member Role: Pharmacy - Lifetime Address: Address: [facility] [address] [place] [address] Name: DO Taylor Laura L Position: Referring DIRECT Member Role: Primary Care Provider Address: [address] [address] [place] Care Team Related Persons Name: KB ESCOBAR Address: home [address] [place] [address] [place] [phone]
--- OUTSIDE RECORDS SUMMARY | 2023-03-01 16:33 | External Medical Summary ---
Author Name Unknown Address Unknown Organization [id number]:[facility] [place] [address] [place] [address] Laboratory Report Ordering Provider Test Date Status SYLVESTER STALEY 12/17/2022 10:48:08 Final Observation Date Value Abnormality Reference (Units ) Status Erythrocyte sedimentation rate by Photometric method 12/17/2022 10:48:08 16 <30 (mm/hour) Final Performing Location [facility] [place] [address] [facility] [address]
[2023-03-01] MEDS ORDERED: OPTIRAY 320 125ml IV ONE (16:50)
--- NOTE | 2023-03-01 16:59 | CT Scan Report ---
CT SCAN OF THE BRAIN WITHOUT IV CONTRAST CLINICAL HISTORY: Generalized weakness. COMPARISON STUDY: CT of the brain dated 09/18/2021. TECHNIQUE: Unenhanced axial CT scan of the brain is performed from the vertex to the skull base. A do se lowering technique was utilized adhering to the principles of ALARA. CT DOSE: 1885.4 mGy.cm FINDINGS: Brain parenchyma: There is age-related involutional change noting moderate subcortical and periventri cular microangiopathic disease. There is no hemorrhage, mass effect, or evidence of acute territorial ischemia by CT criteria. Dave-white matter differentiation is preserved. No extra-axial fluid collec tion is seen. Ventricles, sulci, cisterns: Prominent secondary to involutional change. Intracranial vasculature: There is atherosclerotic calcification of the cavernous carotid arteries. Calvarium: Unremarkable. Sinuses and mastoids: The visualized paranasal sinuses are clear. The mastoid air cells are well pneu matized. Orbits: The bony orbits are grossly intact. There are bilateral ocular lens implants. IMPRESSION: There is no hemorrhage, mass effect, or evidence of acute territorial ischemia by CT mickey fonseca. ACT 112: Negative or not required by law. Electronically signed by: Deon Houston M.D. 03/01/2023 4:58 PM
--- NOTE | 2023-03-01 17:32 | CT Scan Report ---
CT ANGIOGRAM OF THE CHEST CLINICAL HISTORY: Generalized weakness. COMPARISON STUDY: Chest x-ray dated 03/01/2023. Chest CT dated 07/09/2011. TECHNIQUE: Following the IV administration of 117 cc of Optiray 320, CT angiogram of the chest was pe rformed from the upper abdomen to the thoracic inlet utilizing the pulmonary embolus protocol. Images are reviewed in the axial, sagittal, and coronal planes. 3-D MIPS images are created and assessed. I V contrast was administered without complication. A dose lowering technique was utilized adhering to the principles of ALARA. The examination is degraded by motion artifact, as well as by streak artifa ct from the arms which could not be elevated above the chest. FINDINGS: Thyroid: Imaged portions of the thyroid gland are normal in size and attenuation. Thoracic aorta: The thoracic aorta is normal in caliber and demonstrates standard 3-vessel arch anato my. No dissection is seen. Pulmonary vasculature: The pulmonary trunk is normal in caliber. There are no filling defects identif ied in main, lobar, or segmental pulmonary branches to suggest pulmonary embolus. Evaluation of the p eripheral branches is degraded by motion artifact. Heart: The heart is normal in size and without pericardial effusion. Lungs and pleural spaces: Evaluation of the lung parenchyma is degraded by motion artifact. There is no airspace consolidation typical for pneumonia or pleural effusion. Scattered foci of scarring/atele ctasis are seen throughout both lungs. The trachea and central airways are clear. A 3 mm nodule in th e lingula on image #126 is unchanged dating back to 2011 and of doubtful significance. Mediastinum: There is no mediastinal lymphadenopathy. Vandana: Clear. Axillae: There is no axillary lymphadenopathy. Upper abdomen: Partially visualized upper abdominal viscera is within normal limits. Skeletal structures: The skeletal structures are osteopenic. Degenerative change and hyperkyphosis is noted in the thoracic spine. No lytic or blastic bony lesions are seen. IMPRESSION: 1. Streak and motion compromised examination. 2. There is no evidence of pulmonary embolus in the main, lobar, or segmental pulmonary arteries. Adrianna luation of the peripheral branches is degraded by motion artifact. 3. There is no airspace consolidation or pleural effusion. 4. Additional findings as above. ACT 112: Negative or not required by law. Electronically signed by: Deon Houston M.D. 03/01/2023 5:30 PM
--- NOTE | 2023-03-01 22:12 | History & Physical Report ---
Date of Service March 01, 2023 Assessment & Plan (1) Generalized weakness: Plan: 77-year-old female with past medical history significant for mild intermittent asthma, hypertension, irritable bowel syndrome, GERD, chronic interstitial cystitis without hematuria, generalized osteoarthritis, memory disturbance, factor V Leiden mutation, history of CVA, hyponatremia, history of DVT was brought in because of weakness. At home tested positive for COVID today. Patient states she been sick for last few days. Has cough. Denies any headache or any chest pain or shortness of breath. No nausea. Patient seems somewhat hard of hearing and restless. Difficult to get full history from the patient. Afebrile. Saturating okay on room air. Denies any abdominal pain. Alert and oriented. ER tried to discharge her on Paxlovid but felt he could not t ubaldo care of her at home. Generalized weakness Somewhat restless but alert and oriented Vital stable Mostly from COVID Supportive care with IV fluids Close monitor COVID COVID precautions Saturating okay Will monitor History of asthma Continue home inhalers Hypertension On amlodipine GERD Omeprazole History of hyponatremia On salt tablets We will follow labs History of factor V Leyden deficiency History of DVT Seems current not on anticoagulation DVT prophylaxis Lovenox Disposition Medical floor Full code History of Present Illness Chief Complaint: Weakness and COVID Primary Care Provider: Magda Taylor DO 77-year-old female with past medical history significant for mild intermittent asthma, hypertension, irritable bowel syndrome, GERD, chronic interstitial cystitis without hematuria, generalized osteoarthritis, memory disturbance, factor V Leiden mutation, history of CVA, hyponatremia, history of DVT was brought in because of weakness. At home tested positive for COVID today. Patient states she been sick for last few days. Has cough. Denies any headache or any chest pain or shortness of breath. No nausea. Patient seems somewhat hard of hearing and restless. Difficult to get full history from the patient. Afebrile. Saturating okay on room air. Denies any abdominal pain. ER tried to discharge her on Paxlovid but felt he could not take care of her at home. Past medical history as mentioned above Past social history. Colonoscopy. Cystoscopy. Dilatation curettage. EGD. EGD with endoscopic ultrasound. Bilateral cataracts. Social history. . Former smoker. Smoked for 3 years at age of 22. No alcohol. No drug use. Family history. Mother had diabetes. Eye problems. Heart disorder. Hypertension. Father had heart disorder. Allergies Allergy/AdvReac Type Severity Reaction Status Date / Time indomethacin Allergy Intermediate "FEEL Verified 03/01/23 15:48 STRANGE AND OUT OF IT" adhesive Allergy Mild RASH WITH Verified 03/01/23 15:48 EXTENDED USE bacitracin Allergy Mild RASH Verified 03/01/23 15:48 latex Allergy Mild RASH WITH Verified 03/01/23 15:48 LONGER EXPOSURE neomycin Allergy Mild RASH Verified 03/01/23 15:48 polymyxin B Allergy Mild RASH Verified 03/01/23 15:48 Sulfa (Sulfonamide Allergy Mild RASH Verified 03/01/23 15:48 Antibiotics) Home Medications Medication Instructions Recorded Confirmed Type aspirin 325 mg tablet 325 mg PO QAM 05/23/18 03/01/23 History calcium carbonate 600 mg-vitamin 1 cap PO QDL 05/23/18 03/01/23 History D3 62.5 mcg (2,500 unit) capsule esomeprazole magnesium 40 mg 40 mg PO QAM 05/23/18 03/01/23 History capsule,delayed release (Nexium) ipratropium bromide 21 mcg (0.03 2 sprays intranasal BID 05/23/18 03/01/23 History %) nasal spray montelukast 10 mg tablet 10 mg PO HS 05/23/18 03/01/23 History (Singulair) multivitamin 1 tab PO QDL 05/23/18 03/01/23 History vitamin E 268 mg (400 unit) capsule 400 unit PO QDL 01/26/19 03/01/23 History calcium carbonate 400 mg calcium 400 mg PO DIRECTED PRN Gi Upset 05/10/19 03/01/23 History (1,000 mg) chewable tablet (Tums Ultra) sodium chloride 1 gram tablet 1,000 mg PO BID #90 tabs 03/21/20 03/01/23 Rx fluticasone propionate 50 2 spray intranasal QAM 07/29/20 03/01/23 History mcg/actuation nasal spray,suspension amlodipine 2.5 mg tablet 2.5 mg PO QAM #90 tabs 12/06/22 03/01/23 Rx acetaminophen 500 mg tablet 500 mg PO BID Pain 03/01/23 03/01/23 History (Tylenol Extra Strength) albuterol sulfate 90 mcg/actuation 2 puff inhalation QID PRN 03/01/23 03/01/23 History aerosol inhaler (ProAir HFA) Shortness Of Breath Or Wheezing famotidine 20 mg tablet 20 mg PO BID 03/01/23 03/01/23 History meclizine 25 mg tablet 25 mg PO HS PRN dizzyness 03/01/23 03/01/23 History ondansetron 4 mg disintegrating 4 mg translingual Q8 PRN Nausea 03/01/23 03/01/23 History tablet trolamine salicylate 10 % topical 1 applic topical BID PRN .. 03/01/23 03/01/23 History cream (Aspercreme) Past Med/Surg History Medical History Asthma pt reports rare use of PRN inh Hyponatremia following with Dr. Tsang Diarrhea Transient ischemic attack (TIA) 02/08/2012 (NO CURRENT PROBLEMS) Hyperlipidemia Chronic pain of left knee Osteoarthritis History of colitis Factor V Leiden Spinal stenosis DVT (deep venous thrombosis) LEFT LEG (WAS TAKING WARFARIN 2011) GERD (gastroesophageal reflux disease) HTN (hypertension) Surgical History History of bilateral tubal ligation History of esophagogastroduodenoscopy (EGD) History of colonoscopy History of tooth extraction History of cataract surgery RT/LEFT S/P wrist surgery LEFT History of surgery on arm RT ARM Family History Mother Family history of diabetes mellitus Aunt Family hx of colon cancer Other No family history of adverse response to anesthesia Social History Smoking Status: Never smoker Second Hand Exposure: No; Do You Dip or Chew Tobacco: No; Hx Alcohol Use: No Hx Substance Use: No Preferred Language: Maltese Communication Ability: Effective Visual Impairment: No Limitations Hearing Ability: Normal Steam Box Hand Required: No Beliefs That Will Affect Care: None marital status: Current Living Situation: Spouse Current Living Situation Comment: house current occupational status: retired Other Information That Helps Us Care for You: No Feels Safe at Home: No Is there a partner from a previous relationship who is making you feel unsafe now?: No Any Concerns about Your Family Situation: No Would You Like to Speak to Someone About Your Situation: No Safety Concerns: Feels Safe At This Time Assistive Devices: None Review of Systems Review of Systems: All systems reviewed & are unremarkable except as noted in HPI & below Physical Exam Physical Exam: General- Not in distress Head- atraumatic Eyes- PERRL. ENT- oropharynx clear Neck- supple, no JVD. Lungs- clear to auscultation no wheezing or crackles Heart- regular rhythm; no murmur, no gallop. Abdomen- normal bowel sounds, soft, nontender, no distension Extremities- no pretibial edema, no erythema seen. Neuro- alert, oriented x 3; PERRL, no facial palsy; no dysarthria; moves extremities. Skin- warm & dry Results & Data Results & Data Vital Signs (Past 12 Hours) Vital Signs Temp Pulse Pulse Resp BP BP Pulse Ox 03/01/23 17:00 36.8 C 108 H 19 156/81 H 93 03/01/23 16:16 37.1 C 114 H 20 96 03/01/23 15:42 103 H 22 156/75 H 95 03/01/23 15:42 108 H 22 93 03/01/23 15:15 110 H 03/01/23 14:34 37.2 C 20 95 03/01/23 14:34 37.2 C 112 H 20 156/74 H 95 O2 Del Method 03/01/23 17:00 Room Air 03/01/23 16:16 Room Air 03/01/23 15:42 Room Air 03/01/23 15:42 Room Air 03/01/23 15:15 03/01/23 14:34 Room Air 03/01/23 14:34 Room Air Diagnostic Findings Laboratory Results WBC 8.40 K/ul (4.8-10.8) 03/01/23 15:20 RBC 5.01 M/uL (4.20-5.40) 03/01/23 15:20 Hgb 13.9 g/dl (12.0-16.0) 03/01/23 15:20 Hct 42.7 % (37.0-47.0) 03/01/23 15:20 MCV 85.2 fL (80.0-100.0) 03/01/23 15:20 MCH 27.7 pg (25.0-34.0) 03/01/23 15:20 MCHC 32.6 g/dL (32.0-36.0) 03/01/23 15:20 RDW Std Deviation 42.0 fL (36.4-46.3) 03/01/23 15:20 RDW Coeff of Chrissie 13.4 % (11.5-14.5) 03/01/23 15:20 Plt Count 234 K/uL (130-400) 03/01/23 15:20 MPV 11.0 fL (9.4-12.4) 03/01/23 15:20 Immature Gran % (Auto) 0.2 % 03/01/23 15:20 Neut % (Auto) 80.5 % 03/01/23 15:20 Lymph % (Auto) 6.9 % 03/01/23 15:20 Braxton % (Auto) 10.4 % 03/01/23 15:20 Eos % (Auto) 1.4 % 03/01/23 15:20 Baso % (Auto) 0.6 % 03/01/23 15:20 Neut # (Auto) 6.76 K/uL (1.40-6.50) H 03/01/23 15:20 Lymph # (Auto) 0.58 K/uL (1.20-3.40) L 03/01/23 15:20 Braxton # (Auto) 0.87 K/uL (0.11-0.59) H 03/01/23 15:20 Eos # (Auto) 0.12 K/uL (0.00-0.50) 03/01/23 15:20 Baso # (Auto) 0.05 K/uL (0.00-0.20) 03/01/23 15:20 Immature Gran # (Auto) 0.02 K/uL (0.01-0.20) 03/01/23 15:20 PT 10.8 Seconds (9.0-12.0) 03/01/23 15:20 INR 1.0 (0.9-1.1) 03/01/23 15:20 APTT 28 Seconds (21-31) 03/01/23 15:20 PTT Ratio 1.0 03/01/23 15:20 VBG pH 7.37 (7.36-7.41) 03/01/23 15:20 VBG pCO2 46 mmHg (38-50) 03/01/23 15:20 VBG pO2 41 mmHg 03/01/23 15:20 VBG HCO3 27 mmol/L 03/01/23 15:20 VBG O2 Saturation 66.2 % 03/01/23 15:20 VBG Base Excess 0.8 mEq/L 03/01/23 15:20 Sodium 135 mmol/L (136-145) L 03/01/23 15:20 Potassium 4.1 mmol/L (3.5-5.1) 03/01/23 15:20 Chloride 99 mmol/L (98-107) 03/01/23 15:20 Carbon Dioxide 26 mmol/L (21-32) 03/01/23 15:20 Anion Gap 10 (3-11) 03/01/23 15:20 BUN 10 mg/dl (6-23) 03/01/23 15:20 Creatinine 0.77 mg/dl (0.6-1.2) 03/01/23 15:20 Est Cr Clr Drug Dosing 67.0 ml/min 03/01/23 15:20 Est GFR ( Amer) 86.9 ml/min 03/01/23 15:20 Est GFR (Non-Af Amer) 75.0 ml/min 03/01/23 15:20 BUN/Creatinine Ratio 13.0 (10-20) 03/01/23 15:20 Glucose 108 mg/dl (70-99(Fasting)) H 03/01/23 15:20 Lactate 1.1 mmol/L (0.4-2.0) 03/01/23 15:20 Calcium 9.5 mg/dl (8.6-10.3) 03/01/23 15:20 Magnesium 1.8 mg/dl (1.7-2.4) 03/01/23 15:20 Total Bilirubin 0.6 mg/dl (0.2-1.0) 03/01/23 15:20 Direct Bilirubin 0.1 mg/dl (0-0.2) 03/01/23 15:20 AST 23 U/L (13-39) 03/01/23 15:20 ALT 15 U/L (7-52) 03/01/23 15:20 Alkaline Phosphatase 67 U/L (34-104) 03/01/23 15:20 Troponin I High Sens 3.6 pg/ml (0-14) 03/01/23 15:20 Total Protein 7.6 gm/dl (6.0-8.3) 03/01/23 15:20 Albumin 4.4 gm/dl (3.4-5.0) 03/01/23 15:20 Procalcitonin < 0.05 ng/ml (0-0.5) 03/01/23 15:20 Urine Color Yellow 03/01/23 15:40 Urine Appearance Clear (Clear) 03/01/23 15:40 Urine pH 7.5 (4.5-7.5) 03/01/23 15:40 Ur Specific [place] 1.013 (1.000-1.030) 03/01/23 15:40 Urine Protein Trace (Negative) H 03/01/23 15:40 Urine Glucose (UA) Negative (Negative) 03/01/23 15:40 Urine Ketones Trace (Negative) H 03/01/23 15:40 Urine Blood 1+ (Negative) H 03/01/23 15:40 Urine Nitrite Negative (Negative) 03/01/23 15:40 Urine Bilirubin Negative (Negative) 03/01/23 15:40 Urine Urobilinogen Negative (Negative) 03/01/23 15:40 Ur Leukocyte Esterase Trace (Negative) H 03/01/23 15:40 Urine WBC (Auto) 1-5 /hpf (0-5) 03/01/23 15:40 Urine RBC (Auto) 10-30 /hpf (0-4) H 03/01/23 15:40 U Hyaline Cast (Auto) 0 /lpf (0-5) 03/01/23 15:40 U Epithel Cells (Auto) 20-30 /lpf (0-5) H 03/01/23 15:40 Urine Bacteria (Auto) Negative (Negative) 03/01/23 15:40 SARS-CoV-2, RNA, NAAT POSITIVE (NEGATIVE) A* 03/01/23 20:30 Blood Type A Positive 03/01/23 15:26 Antibody Screen NEGATIVE 03/01/23 15:26 Impressions Chest X-Ray 03/01/23 14:50 XR chest 1V portable CLINICAL HISTORY: Sepsis. COMPARISON STUDY: Chest CT July 09, 2011. Chest radiograph December 26, 2020. FINDINGS: No pneumothorax or pleural effusion is present. Cardiac size is normal. Mediastinal contours are stable. There is no consolidation to suggest pneumonia. No evidence for pulmonary edema. Minimal left basilar opacity favors atelectasis. IMPRESSION: No acute cardiopulmonary findings. No change in appearance of the chest. ACT 112: Negative or not required by law. Electronically signed by: Dewayne Cuba M.D. 03/01/2023 3:32 PM Chest CTA 03/01/23 14:51 CT ANGIOGRAM OF THE CHEST CLINICAL HISTORY: Generalized weakness. COMPARISON STUDY: Chest x-ray dated 03/01/2023. Chest CT dated 07/09/2011. TECHNIQUE: Following the IV administration of 117 cc of Optiray 320, CT angiogram of the chest was performed from the upper abdomen to the thoracic inlet utilizing the pulmonary embolus protocol. Images are reviewed in the axial, sagittal, and coronal planes. 3-D MIPS images are created and assessed. IV contrast was administered without complication. A dose lowering technique was utilized adhering to the principles of ALARA. The examination is degraded by motion artifact, as well as by streak artifact from the arms which could not be elevated above the chest. FINDINGS: Thyroid: Imaged portions of the thyroid gland are normal in size and attenuation. Thoracic aorta: The thoracic aorta is normal in caliber and demonstrates standard 3-vessel arch anatomy. No dissection is seen. Pulmonary vasculature: The pulmonary trunk is normal in caliber. There are no filling defects identified in main, lobar, or segmental pulmonary branches to suggest pulmonary embolus. Evaluation of the peripheral branches is degraded by motion artifact. Heart: The heart is normal in size and without pericardial effusion. Lungs and pleural spaces: Evaluation of the lung parenchyma is degraded by motion artifact. There is no airspace consolidation typical for pneumonia or pleural effusion. Scattered foci of scarring/atelectasis are seen throughout both lungs. The trachea and central airways are clear. A 3 mm nodule in the ling regi on image #126 is unchanged dating back to 2011 and of doubtful significance. Mediastinum: There is no mediastinal lymphadenopathy. Vandana: Clear. Axillae: There is no axillary lymphadenopathy. Upper abdomen: Partially visualized upper abdominal viscera is within normal limits. Skeletal structures: The skeletal structures are osteopenic. Degenerative change and hyperkyphosis is noted in the thoracic spine. No lytic or blastic bony lesions are seen. IMPRESSION: 1. Streak and motion compromised examination. 2. There is no evidence of pulmonary embolus in the main, lobar, or segmental pulmonary arteries. Evaluation of the peripheral branches is degraded by motion artifact. 3. There is no airspace consolidation or pleural effusion. 4. Additional findings as above. ACT 112: Negative or not required by law. Electronically signed by: Deon Houston M.D. 03/01/2023 5:[address] 03/01/23 14:51 CT SCAN OF THE BRAIN WITHOUT IV CONTRAST CLINICAL HISTORY: Generalized weakness. COMPARISON STUDY: CT of the brain dated 09/18/2021. TECHNIQUE: Unenhanced axial CT scan of the brain is performed from the vertex to the skull base. A dose lowering technique was utilized adhering to the principles of ALARA. CT DOSE: 1885.4 mGy.cm FINDINGS: Brain parenchyma: There is age-related involutional change noting moderate subcortical and periventricular microangiopathic disease. There is no hemorrhage, mass effect, or evidence of acute territorial ischemia by CT criteria. Dave-white matter differentiation is preserved. No extra-axial fluid collection is seen. Ventricles, sulci, cisterns: Prominent secondary to involutional change. Intracranial vasculature: There is atherosclerotic calcification of the cavernous carotid arteries. Calvarium: Unremarkable. Sinuses and mastoids: The visualized paranasal sinuses are clear. The mastoid air cells are well pneumatized. Orbits: The bony orbits are grossly intact. There are bilateral ocular lens implants. IMPRESSION: There is no hemorrhage, mass effect, or evidence of acute territorial ischemia by CT criteria. ACT 112: Negative or not required by law. Electronically signed by: Deon Houston M.D. 03/01/2023 4:58 PM ECG Additional Comments: ECG. Sinus tachycardia rate of 111. No acute ST seen. Code Status & VTE Plan VTE Prophylaxis Plan VTE Prophylaxis will be ordered: Yes
[2023-03-01] MEDS ORDERED: TROLAMINE SALICYLATE 10% CRM 255 APPLN/85 GM TUBE EXT PRN (23:45)
[2023-03-01] MEDS ORDERED: ALBUTEROL HFA 8 GM INHALER INH PRN (23:45)
[2023-03-01] MEDS ORDERED: ACETAMINOPHEN 325 MG TAB PO PRN (23:45)
[2023-03-02] MEDS ORDERED: CALCIUM CARBONATE 500 MG CHEWABLE TAB PO PRN (00:22)
[2023-03-02] MEDS: D5W AND NSS 1,000 ML IV SCH ×2 (00:32→09:25)
[2023-03-02] MEDS: FAMOTIDINE 20 MG TAB PO SCH ×2 (09:23→20:00)
[2023-03-02] MEDS: MECLIZINE HCL 25 MG TAB PO PRN (09:23)
[2023-03-02] MEDS: ASPIRIN 325 MG ECTAB PO SCH (09:23)
[2023-03-02] MEDS: ENOXAPARIN INJ 40 MG/0.4 ML SYR SQ SCH (09:23)
[2023-03-02] MEDS: amLODIPine BESYLATE 5 MG TAB PO SCH (09:24)
[2023-03-02] MEDS: PANTOprazole 40 MG TAB PO SCH (09:24)
[2023-03-02] MEDS: SODIUM CHLORIDE 1 GM TABLET PO SCH ×2 (09:24→20:00)
[2023-03-02] MEDS: FLUTICASONE PROPIONATE NA SPR 16 GM BTL SCH (09:25)
[2023-03-02] MEDS: TOCOPHERYL, DL-ALPHA 400 UNITS 180 MG CAP PO SCH (12:20)
[2023-03-02] MEDS: CALCIUM 600MG + VIT D 400 IU TAB PO SCH (12:20)
[2023-03-02] MEDS: MULTIVITAMIN TAB PO SCH (12:20)
--- NOTE | 2023-03-02 14:15 | Hospitalist Progress Note ---
Date of Service March 02, 2023 Assessment & Plan (1) Generalized weakness: Plan: 77-year-old female with past medical history significant for mild intermittent asthma, hypertension, irritable bowel syndrome, GERD, chronic interstitial cystitis without hematuria, generalized osteoarthritis, memory disturbance, factor V Leiden mutation, history of CVA, hyponatremia, history of DVT was brought in because of weakness. At home tested positive for COVID on the day of arrival. Patient states she been sick for last few days [employer] RE[employer]IREMENTS [employer]. Has cough. Denies any headache or any chest pain or shortness of breath. No nausea. Afebrile. Saturating okay on room air. Denies any abdominal pain. Alert and oriented. ER tried to discharge her on Paxlovid but felt he could not take care of her at home. She is being managed for the following: Generalized weakness Vital stable Mostly from COVID Supportive care with IV fluids Close monitor encourage po intake. pt/ot. COVID COVID precautions Saturating okay Will monitor History of asthma: Continue home inhalers Hypertension: On amlodipine, continue. GERD: Omeprazole, continue. History of hyponatremia: On salt tablets. We will follow labs History of factor V Leiden deficiency History of DVT Seems currently not on anticoagulation open outpatient chart review. Patient to follow-up with her PCP office for long-term monitoring/management. DVT prophylaxis: Lovenox Disposition: Medical floor, pt/ot. cm to assist w/ dc plan. Full code Admission and Anticipated Discharge Date Admission Date: March 01, 2023 Subjective Patient was seen and examined at bedside. Patient was sitting up in bed, on room air, NAD, reports occasional dry cough, denies chest pain or febrile illness, reports ongoing weakness generalized in nature, reports no new acute event overnight. Reports eating so-so, moving bowels okay. Physical Exam Physical Exam: GENERAL: Alert and oriented x3. NAD, on RA. Appears elderly/weak. HEENT: No pallor, no icterus. Pupils equal, round and reactive to light. Oral mucosa moist. NECK: No JVD, no neck masses. HEART: S1 and S2 heard. Regular rate and rhythm. No murmur, no gallop. RESPIRATORY SYSTEM: Normal AP diameter. No accessory muscle use. No wheezing, no crackles. ABDOMEN: Soft, bowel sounds present, nontender, no distention. CENTRAL NERVOUS SYSTEM: No facial droop. Speech is clear. Obeys simple commands. Moves extremities. EXTREMITIES: No edema, no erythema seen. Results & Data Results & Data Vital Signs (Past 12 Hours) Vital Signs Temp Pulse Resp BP Pulse Ox O2 Del Method 03/02/23 09:00 Room Air 03/02/23 05:53 37 C 89 16 156/71 H 94 Room Air
[2023-03-02] MEDS: SODIUM CHLORIDE 0.9% 500 ML IV SCH ×2 (19:00→21:14)
[2023-03-02] MEDS: IPRATROPIUM BROMIDE NASAL SPRAY 0.06% 15ML NAE SCH (20:45)
[2023-03-02] MEDS ORDERED: MONTELUKAST SODIUM 10 MG TABLET PO SCH (21:00)
[2023-03-03 07:04] LABS: Hematocrit (blood only) 38.5 % (37.0-47.0); Hemoglobin 12.5 g/dl (12.0-16.0); Mean Corpuscular Hemoglobin 27.6 pg (25.0-34.0); Mean Corpuscular Hgb Conc 32.5 g/dL (32.0-36.0); Mean Platelet Volume 11.1 fL (9.4-12.4); Platelet Count 189 K/uL (130-400); RDW Coefficient of Variation 13.8 % (11.5-14.5); Red Blood Count 4.53 M/uL (4.20-5.40); White Blood Count 5.47 K/ul (4.8-10.8)
[2023-03-03 07:32] LABS: BUN Creatinine Ratio 19.1 (10-20); Calcium 8.4 mg/dl (8.6-10.3); Creatinine Clr Calc Pharmacy 107.7 ml/min; Est GFR (African American) 111.2 ml/min; Est GFR (Non-African American) 95.9 ml/min; Potassium 3.8 mmol/L (3.5-5.1)
[2023-03-03] MEDS: MECLIZINE HCL 25 MG TAB PO PRN (08:17)
[2023-03-03] MEDS: SODIUM CHLORIDE 1 GM TABLET PO SCH (08:17)
[2023-03-03] MEDS: amLODIPine BESYLATE 5 MG TAB PO SCH (08:17)
[2023-03-03] MEDS: ASPIRIN 325 MG ECTAB PO SCH (08:17)
[2023-03-03] MEDS: FLUTICASONE PROPIONATE NA SPR 16 GM BTL SCH (08:18)
[2023-03-03] MEDS: ENOXAPARIN INJ 40 MG/0.4 ML SYR SQ SCH (08:18)
[2023-03-03] MEDS: PANTOprazole 40 MG TAB PO SCH (08:18)
[2023-03-03] MEDS: FAMOTIDINE 20 MG TAB PO SCH (08:18)
[2023-03-03] MEDS: IPRATROPIUM BROMIDE NASAL SPRAY 0.06% 15ML NAE SCH (08:18)
[2023-03-03] MEDS: MULTIVITAMIN TAB PO SCH (12:28)
[2023-03-03] MEDS: CALCIUM 600MG + VIT D 400 IU TAB PO SCH (12:28)
[2023-03-03] MEDS: TOCOPHERYL, DL-ALPHA 400 UNITS 180 MG CAP PO SCH (12:28)
--- NOTE | 2023-03-03 13:45 | Hospitalist Progress Note ---
Date of Service March 03, 2023 Assessment & Plan (1) Generalized weakness: Plan: 77-year-old female with past medical history significant for mild intermittent asthma, hypertension, irritable bowel syndrome, GERD, chronic interstitial cystitis without hematuria, generalized osteoarthritis, memory disturbance, factor V Leiden mutation, history of CVA, hyponatremia, history of DVT was brought in because of weakness. At home tested positive for COVID on the day of arrival. 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 Has cough. Denies any headache or any chest pain or shortness of breath. No nausea. Afebrile. Saturating okay on room air. Denies any abdominal pain. Alert and oriented. ER tried to discharge her on Paxlovid but felt he could not take care of her at home. She is being managed for the following: Generalized weakness Vital stable Mostly from COVID Supportive care with IV fluids Close monitor Encourage po intake PT/OT recommending rehab COVID COVID precautions Saturating at 96% on room air Will monitor History of asthma: Continue home inhalers Hypertension: On amlodipine, continue. GERD: Omeprazole, continue. History of hyponatremia: On salt tablets. We will follow labs History of factor V Leiden deficiency History of DVT Seems currently not on anticoagulation open outpatient chart review. Patient to follow-up with her PCP office for long-term monitoring/management. DVT prophylaxis: Lovenox Disposition: Medical floor, pt/ot. cm to assist w/ dc plan. Full code Admission and Anticipated Discharge Date Admission Date: March 01, 2023 Supervising Physician Co-Signing Physician Notes Patient seen and examined at bedside. Patient on room air, heart/lung/abdomen examination fairly WNL. Patient reports improving appetite and improving strength. Patient's at bedside who was updated on her medical condition. I have seen and examined the patient and have discussed the case with the provider above. I agree with the assessment and plan as stated. Subjective Patient was seen and examined at bedside in follow-up for generalized weakness, covid. Feeling better today, still with occasional dry cough. No F/C or SOB. No acute events overnight. No CP, lightheadedness, N/V, abd pain, dysuria, diarrhea or constipation. Review of Systems Review of Systems: At least ten systems reviewed and negative except as noted in the HPI. Physical Exam Physical Exam: Gen: WD/WN, elderly female, NAD,resting in bedside, A&Ox3 HEENT: Normocephalic, atraumatic, conjunctivae moist, sclerae anicteric, mucous membranes moist Lung: Clear to Auscultation bilaterally, no wheezes/rales/rhonchi Heart: Regular rate, regular rhythm, no murmurs, rubs, or gallops Abdomen: Soft, NT, ND +BS x 4 Extremities: no edema Skin: Warm, no rash Results & Data Results & Data Vital Signs (Past 12 Hours) Vital Signs Temp Pulse Resp BP Pulse Ox O2 Del Method 03/03/23 08:15 Room Air 03/03/23 08:04 36.9 C 90 18 169/96 H 96 Room Air Laboratory Results Short CBC 03/03/23 Range/Units 06:42 WBC 5.47 (4.8-10.8) K/ul Hgb 12.5 (12.0-16.0) g/dl Hct 38.5 (37.0-47.0) % Plt Count 189 (130-400) K/uL BMP 03/03/23 06:42 Sodium 138 Potassium 3.8 Chloride 107 Carbon Dioxide 24 BUN 9 Creatinine 0.47 L D Glucose 97 Calcium 8.4 L Diagnostic Findings Chest X-Ray 03/01/23 14:50 XR chest 1V portable CLINICAL HISTORY: Sepsis. COMPARISON STUDY: Chest CT July 09, 2011. Chest radiograph December 26, 2020. FINDINGS: No pneumothorax or pleural effusion is present. Cardiac size is normal. Mediastinal contours are stable. There is no consolidation to suggest pneumonia. No evidence for pulmonary edema. Minimal left basilar opacity favors atelectasis. IMPRESSION: No acute cardiopulmonary findings. No change in appearance of the chest. ACT 112: Negative or not required by law. Electronically signed by: Dewayne Cuba M.D. 03/01/2023 3:32 PM Chest CTA 03/01/23 14:51 CT ANGIOGRAM OF THE CHEST CLINICAL HISTORY: Generalized weakness. COMPARISON STUDY: Chest x-ray dated 03/01/2023. Chest CT dated 07/09/2011. TECHNIQUE: Following the IV administration of 117 cc of Optiray 320, CT angiogram of the chest was performed from the upper abdomen to the thoracic inlet utilizing the pulmonary embolus protocol. Images are reviewed in the axial, sagittal, and coronal planes. 3-D MIPS images are created and assessed. IV contrast was administered without complication. A dose lowering technique was utilized adhering to the principles of ALARA. The examination is degraded by motion artifact, as well as by streak artifact from the arms which could not be elevated above the chest. FINDINGS: Thyroid: Imaged portions of the thyroid gland are normal in size and attenuation. Thoracic aorta: The thoracic aorta is normal in caliber and demonstrates standard 3-vessel arch anatomy. No dissection is seen. Pulmonary vasculature: The pulmonary trunk is normal in caliber. There are no filling defects identified in main, lobar, or segmental pulmonary branches to suggest pulmonary embolus. Evaluation of the peripheral branches is degraded by motion artifact. Heart: The heart is normal in size and without pericardial effusion. Lungs and pleural spaces: Evaluation of the lung parenchyma is degraded by motion artifact. There is no airspace consolidation typical for pneumonia or pleural effusion. Scattered foci of scarring/atelectasis are seen throughout both lungs. The trachea and central airways are clear. A 3 mm nodule in the lingula on image #126 is unchanged dating back to 2011 and of doubtful significance. Mediastinum: There is no mediastinal lymphadenopathy. Vandana: Clear. Axillae: There is no axillary lymphadenopathy. Upper abdomen: Partially visualized upper abdominal viscera is within normal limits. Skeletal structures: The skeletal structures are osteopenic. Degenerative change and hyperkyphosis is noted in the thoracic spine. No lytic or blastic bony lesions are seen. IMPRESSION: 1. Streak and motion compromised examination. 2. There is no evidence of pulmonary embolus in the main, lobar, or segmental pulmonary arteries. Evaluation of the peripheral branches is degraded by motion artifact. 3. There is no airspace consolidation or pleural effusion. 4. Additional findings as above. ACT 112: Negative or not required by law. Electronically signed by: Deon Houston M.D. 03/01/2023 5:[address] 03/01/23 14:51 CT SCAN OF THE BRAIN WITHOUT IV CONTRAST CLINICAL HISTORY: Generalized weakness. COMPARISON STUDY: CT of the brain dated 09/18/2021. TECHNIQUE: Unenhanced axial CT scan of the brain is performed from the vertex to the skull base. A dose lowering technique was utilized adhering to the principles of ALARA. CT DOSE: 1885.4 mGy.cm FINDINGS: Brain parenchyma: There is age-related involutional change noting moderate subcortical and periventricular microangiopathic disease. There is no hemorrhage, mass effect, or evidence of acute territorial ischemia by CT criteria. Dave-white matter differentiation is preserved. No extra-axial fluid collection is seen. Ventricles, sulci, cisterns: Prominent secondary to involutional change. Intracranial vasculature: There is atherosclerotic calcification of the cavernous carotid arteries. Calvarium: Unremarkable. Sinuses and mastoids: The visualized paranasal sinuses are clear. The mastoid air cells are well pneumatized. Orbits: The bony orbits are grossly intact. There are bilateral ocular lens implants. IMPRESSION: There is no hemorrhage, mass effect, or evidence of acute territorial ischemia by CT criteria. ACT 112: Negative or not required by law. Electronically signed by: Deon Houston M.D. 03/01/2023 4:58 PM
--- NOTE | 2023-03-03 16:54 | Discharge Summary ---
Discharge Summary Date of Service March 03, 2023 Notes For Next Care Provider generalized weakness 2/2 covid Medication Changes From Visit N/A Admission HPI Per Admitting Provider 77-year-old female with past medical history significant for mild intermittent asthma, hypertension, irritable bowel syndrome, GERD, chronic interstitial cystitis without hematuria, generalized osteoarthritis, memory disturbance, factor V Leiden mutation, history of CVA, hyponatremia, history of DVT was brought in because of weakness. At home tested positive for COVID today. Patient states she been sick for last few days. Has cough. Denies any headache or any chest pain or shortness of breath. No nausea. Patient seems somewhat hard of hearing and restless. Difficult to get full history from the patient. Afebrile. Saturating okay on room air. Denies any abdominal pain. ER tried to discharge her on Paxlovid but felt he could not take care of her at home. Past medical history as mentioned above Past social history. Colonoscopy. Cystoscopy. Dilatation curettage. EGD. EGD with endoscopic ultrasound. Bilateral cataracts. Social history. . Former smoker. Smoked for 3 years at age of 22. No alcohol. No drug use. Family history. Mother had diabetes. Eye problems. Heart disorder. Hypertension. Father had heart disorder. Admission Exam Per Admitting Provider General- Not in distress Head- atraumatic Eyes- PERRL. ENT- oropharynx clear Neck- supple, no JVD. Lungs- clear to auscultation no wheezing or crackles Heart- regular rhythm; no murmur, no gallop. Abdomen- normal bowel sounds, soft, nontender, no distension Extremities- no pretibial edema, no erythema seen. Neuro- alert, oriented x 3; PERRL, no facial palsy; no dysarthria; moves extremities. Skin- warm & dry Principal Dx & Hospital Course #1 = Principal Diagnosis (1) Generalized weakness: (2) COVID-19: (3) Hyponatremia: (4) Hypertension: Plan This is a 77-year-old female with past medical history significant for mild intermittent asthma, hypertension, irritable bowel syndrome, GERD, chronic interstitial cystitis without hematuria, generalized osteoarthritis, memory disturbance, factor V Leiden mutation not on anticoagulation, history of CVA, hyponatremia, history of DVT was brought in because of weakness. Tested positive for COVID on the day of arrival, 03/01. 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 Mild symptoms with dry cough, saturating on room air. Steroids and a ntiviral not indicated. PT/OT recommending rehab but patient refused and electing to return home. Script provided for outpatient PT/OT. No medication changes. Isolation instructions provided. Of note, patient with history of factor V Leiden deficiency and not on anticoagulation. Recommended patient to follow-up with her PCP office for long-term monitoring/management. Comfortable and hemodynamically stable at time of discharge home. Discharge Exam Gen: WD/WN, elderly female, NAD,resting in bedside, A&Ox3 HEENT: Normocephalic, atraumatic, conjunctivae moist, sclerae anicteric, mucous membranes moist Lung: Clear to Auscultation bilaterally, no wheezes/rales/rhonchi Heart: Regular rate, regular rhythm, no murmurs, rubs, or gallops Abdomen: Soft, NT, ND +BS x 4 Extremities: no edema Skin: Warm, no rash Updated Medication List Medication Instructions Recorded Confirmed Type aspirin 325 mg tablet 325 mg PO QAM 05/23/18 03/01/23 History calcium carbonate 600 mg-vitamin 1 cap PO QDL 05/23/18 03/01/23 History D3 62.5 mcg (2,500 unit) capsule esomeprazole magnesium 40 mg 40 mg PO QAM 05/23/18 03/01/23 History capsule,delayed release (Nexium) ipratropium bromide 21 mcg (0.03 2 sprays intranasal BID 05/23/18 03/01/23 History %) nasal spray montelukast 10 mg tablet 10 mg PO HS 05/23/18 03/01/23 History (Singulair) multivitamin 1 tab PO QDL 05/23/18 03/01/23 History vitamin E 268 mg (400 unit) capsule 400 unit PO QDL 01/26/19 03/01/23 History calcium carbonate 400 mg calcium 400 mg PO DIRECTED PRN Gi Upset 05/10/19 03/01/23 History (1,000 mg) chewable tablet (Tums Ultra) sodium chloride 1 gram tablet 1,000 mg PO BID #90 tabs 03/21/20 03/01/23 Rx fluticasone propionate 50 2 spray intranasal QAM 07/29/20 03/01/23 History mcg/actuation nasal spray,suspension amlodipine 2.5 mg tablet 2.5 mg PO QAM #90 tabs 12/06/22 03/01/23 Rx acetaminophen 500 mg tablet 500 mg PO BID Pain 03/01/23 03/01/23 History (Tylenol Extra Strength) albuterol sulfate 90 mcg/actuation 2 puff inhalation QID PRN 03/01/23 03/01/23 History aerosol inhaler (ProAir HFA) Shortness Of Breath Or Wheezing famotidine 20 mg tablet 20 mg PO BID 03/01/23 03/01/23 History meclizine 25 mg tablet 25 mg PO HS PRN dizzyness 03/01/23 03/01/23 History ondansetron 4 mg disintegrating 4 mg translingual Q8 PRN Nausea 03/01/23 03/01/23 History tablet trolamine salicylate 10 % topical 1 applic topical BID PRN .. 03/01/23 03/01/23 History cream (Aspercreme) Hospital Stay Data Consultations 03/01/23 18:29 ED Decision to Admit Stat Diagnostic Imagining Performed 03/01/23 14:51 CT angio chest PE protocol Stat CT head/brain wo con Stat Pending Results Patient Have Any Pending Studies at Discharge: No Discharge Instructions Given to Patient (Per Discharging Provider) MEDICATION CHANGES: None SUMMARY OF TEST RESULTS: You were admitted to the hospital with generalized weakness in setting of covid- [address] without evidence of pulmonary embolus, airspace consolidation or pleural effusion PENDING TEST RESULTS: None RECOMMENDATIONS FOR FOLLOW-UP: Follow up with PCP as scheduled. Continue medication regimen as scheduled aside from changes noted above. Continue strict Covid isolation precautions until 03/06 and then mask in public for another 5 days following per guidelines. You were provided with a script for outpatient PT/OT. OTHER INSTRUCTIONS: Seek medical attention if you have: * temperature above 101 * chest pain or trouble breathing * abdominal pain, nausea, vomiting * diarrhea, dark stools or bloody stools * any unanswered questions or concerns Call 911 if symptoms are severe. Please take good care of yourself. Call if you have any questions or problems. You can reach a [facility] hospitalist on duty at [facility] 24 hours a day by calling [phone]. Total Time Total Time Spent Total Time Spent (In Minutes): 40 Supervising Physician Co-Signing Physician Notes Patient seen and examined at bedside. Patient on room air, heart/lung/abdomen examination fairly WNL. Patient reports continued improving appetite and improving strength. Patient's at bedside who was updated on her medical condition. I have seen and examined the patient and have discussed the case with the provider above. I agree with the assessment and plan as stated.
== END 2023-03-03 17:56 | disposition home or self-care (01) | DRG 178 ==
LOC: ED 14:28 → INTOOBSV 21:56 → 3N 21:56 → SUATTDRO 21:56 → 3N 03-02 00:47

== ENCOUNTER 2023-03-11 15:49 | Inpatient (IN) ==
[2023-03-11 16:55] LABS: Basophils # (auto) 0.05 K/uL (0.00-0.20); Basophils % (auto) 0.4 %; Eosinophils # (auto) 0.11 K/uL (0.00-0.50); Hematocrit (blood only) 43.1 % (37.0-47.0); Hemoglobin 13.9 g/dl (12.0-16.0); Immature Granulocytes # (auto) 0.06 K/uL (0.01-0.20); Immature Granulocytes % (auto) 0.5 %; Lymphocytes # (auto) 1.28 K/uL (1.20-3.40); Lymphocytes % (auto) 11.5 %; Mean Corpuscular Hemoglobin 27.6 pg (25.0-34.0); Mean Corpuscular Hgb Conc 32.3 g/dL (32.0-36.0); Mean Corpuscular Volume 85.7 fL (80.0-100.0); Mean Platelet Volume 11.2 fL (9.4-12.4); Monocytes # (auto) 1.11 K/uL (0.11-0.59); Monocytes % (auto) 9.9 %; Neutrophils # (auto) 8.56 K/uL (1.40-6.50); Neutrophils % (auto) 76.7 %; Platelet Count 352 K/uL (130-400); RDW Coefficient of Variation 13.3 % (11.5-14.5); RDW Standard Deviation 41.4 fL (36.4-46.3); Red Blood Count 5.03 M/uL (4.20-5.40); White Blood Count 11.17 K/ul (4.8-10.8)
[2023-03-11 17:08] LABS: Alanine Aminotransferase 10 U/L (7-52); Albumin Globulin Ratio 1.2 (0.9-2); Albumin Level 4.3 gm/dl (3.4-5.0); Alkaline Phosphatase 67 U/L (34-104); Anion Gap 9 (3-11); Aspartate Aminotransferase 19 U/L (13-39); BUN Creatinine Ratio 21.4 (10-20); Bilirubin,Total 0.6 mg/dl (0.2-1.0); Blood Urea Nitrogen 15 mg/dl (6-23); Calcium 9.5 mg/dl (8.6-10.3); Carbon Dioxide 25 mmol/L (21-32); Chloride 102 mmol/L (98-107); Est GFR (African American) 97.5 ml/min; Est GFR (Non-African American) 84.2 ml/min; Globulin 3.5 gm/dl (2.5-4.0); Glucose 102 mg/dl (70-99(Fasting)); Magnesium 2.1 mg/dl (1.7-2.4); Potassium 4.3 mmol/L (3.5-5.1); Sodium 136 mmol/L (136-145); Total Protein 7.8 gm/dl (6.0-8.3)
--- NOTE | 2023-03-11 17:08 | XRay Report ---
SINGLE VIEW CHEST CLINICAL HISTORY: Generalized weakness. FINDINGS: An AP upright chest radiograph is compared to chest x-ray and chest CT dated 03/01/2023. Th e cardiomediastinal silhouette is top normal for projection. Chronic interstitial thickening similar to previous. There is mild elevation of the right hemidiaphragm and mild bibasilar atelectasis. The l ungs and pleural spaces are clear. No pneumothorax is seen. The skeletal structures are osteopenic. T he bony thorax is grossly intact. IMPRESSION: No active disease in the chest. ACT 112: Negative or not required by law. Electronically signed by: Deon Houston M.D. 03/11/2023 5:07 PM
[2023-03-11 17:14] LABS: Troponin I High Sensitivity 2.6 pg/ml (0-14)
[2023-03-11 17:22] LABS: Thyroid Stimulating Hormone 2.587 uIu/ml (0.300-4.500)
[2023-03-11 17:31] LABS: Adenovirus PCR Not Detected (NotDetected); Bordetella parapertussis PCR Not Detected (NotDetected); Bordetella pertussis PCR Not Detected (NotDetected); Chlamydia pneumoniae PCR Not Detected (NotDetected); Coronavirus 229E PCR Not Detected (NotDetected); Coronavirus HKU1 PCR Not Detected (NotDetected); Coronavirus NL63 PCR Not Detected (NotDetected); Coronavirus OC43PCR Not Detected (NotDetected); Human Metapneumovirus PCR Not Detected (NotDetected); Influenza A PCR Not Detected (NotDetected); Influenza B PCR Not Detected (NotDetected); Mycoplasma pneumoniae PCR Not Detected (NotDetected); Parainfluenza Virus 1 PCR Not Detected (NotDetected); Parainfluenza Virus 2 PCR Not Detected (NotDetected); Parainfluenza Virus 3 PCR Not Detected (NotDetected); Parainfluenza Virus 4 PCR Not Detected (NotDetected); Respiratory Syncytial VirusPCR Not Detected (NotDetected); Rhinovirus/Enterovirus PCR Not Detected (NotDetected)
[2023-03-11 17:34] LABS: Coronavirus CoV-2 (COVID19)PCR DETECTED (NotDetected)
--- NOTE | 2023-03-11 19:03 | CT Scan Report ---
CT SCAN OF THE BRAIN WITHOUT IV CONTRAST CLINICAL HISTORY: Generalized weakness. COMPARISON STUDY: CT of the brain dated 03/01/2023. TECHNIQUE: Unenhanced axial CT scan of the brain is performed from the vertex to the skull base. A do se lowering technique was utilized adhering to the principles of ALARA. CT DOSE: 547.75 mGy.cm FINDINGS: Brain parenchyma: There is age-related involutional change noting moderate subcortical and periventri cular microangiopathic disease. There is no hemorrhage, mass effect, or evidence of acute territorial ischemia by CT criteria. Dave-white matter differentiation is preserved. No extra-axial fluid collec tion is seen. Ventricles, sulci, cisterns: Prominent secondary to involutional change. Intracranial vasculature: There is atherosclerotic calcification of the cavernous carotid and vertebr al arteries. Calvarium: Unremarkable. Sinuses and mastoids: The visualized paranasal sinuses are clear. The mastoid air cells are well pneu matized. Orbits: The bony orbits are grossly intact. There are bilateral ocular lens implants. IMPRESSION: There is no hemorrhage, mass effect, or evidence of acute territorial ischemia by CT mickey fonseca. ACT 112: Negative or not required by law. Electronically signed by: Deon Houston M.D. 03/11/2023 7:01 PM
--- NOTE | 2023-03-11 19:14 | Emergency Department Note ---
History of Present Illness General Chief complaint: Weakness Stated complaint: WEAKNESS X1 DAY, COVID+ ON 03-01-23 Time Seen by Provider: 03/11/23 18:06 History of Present Illness Provider complaint: Weakness COVID Maximum Pain Intensity: 6 77-year-old female presents emergency department for weakness. Patient tested positive for COVID-19 10 days ago. She states that she was very weak and had to be admitted and went home and was feeling better but now feels very weak again. Denies any chest pain difficulty breathing headache nausea vomiting or diarrhea. Home Medications Medication Instructions Recorded Confirmed Type aspirin 325 mg tablet 325 mg PO QAM 05/23/18 03/11/23 History calcium carbonate 600 mg-vitamin 1 cap PO QDL 05/23/18 03/11/23 History D3 62.5 mcg (2,500 unit) capsule esomeprazole magnesium 40 mg 40 mg PO DAILYBB 05/23/18 03/11/23 History capsule,delayed release (Nexium) ipratropium bromide 21 mcg (0.03 2 sprays intranasal BID 05/23/18 03/11/23 History %) nasal spray montelukast 10 mg tablet 10 mg PO HS 05/23/18 03/11/23 History (Singulair) multivitamin 1 tab PO QDL 05/23/18 03/11/23 History vitamin E 268 mg (400 unit) capsule 400 unit PO QDL 01/26/19 03/11/23 History calcium carbonate 400 mg calcium 400 mg PO DIRECTED PRN Gi Upset 05/10/19 03/11/23 History (1,000 mg) chewable tablet (Tums Ultra) fluticasone propionate 50 2 spray intranasal QAM 07/29/20 03/11/23 History mcg/actuation nasal spray,suspension amlodipine 2.5 mg tablet 2.5 mg PO QAM #90 tabs 12/06/22 03/11/23 Rx acetaminophen 500 mg tablet 500 mg PO DIRECTED PRN Pain 03/01/23 03/11/23 History (Tylenol Extra Strength) albuterol sulfate 90 mcg/actuation 2 puff inhalation QID PRN 03/01/23 03/11/23 History aerosol inhaler (ProAir HFA) Shortness Of Breath Or Wheezing famotidine 20 mg tablet 20 mg PO BID 03/01/23 03/11/23 History meclizine 25 mg tablet 25 mg PO HS PRN dizzyness 03/01/23 03/11/23 History ondansetron 4 mg disintegrating 4 mg translingual Q8 PRN Nausea 03/01/23 03/11/23 History tablet trolamine salicylate 10 % topical 1 applic topical BID PRN Pain 03/01/23 03/11/23 History cream (Aspercreme) sodium chloride 1,000 mg soluble 1,000 mg PO BID 03/11/23 03/11/23 History tablet Allergies Allergy/AdvReac Type Severity Reaction Status Date / Time indomethacin Allergy Intermediate "FEEL Verified 03/11/23 19:19 STRANGE AND OUT OF IT" adhesive Allergy Mild RASH WITH Verified 03/11/23 19:19 EXTENDED USE bacitracin Allergy Mild RASH Verified 03/11/23 19:19 latex Allergy Mild RASH WITH Verified 03/11/23 19:19 LONGER EXPOSURE neomycin Allergy Mild RASH Verified 03/11/23 19:19 polymyxin B Allergy Mild RASH Verified 03/11/23 19:19 Sulfa (Sulfonamide Allergy Mild RASH Verified 03/11/23 19:19 Antibiotics) Past Med/Surg History Medical History Asthma pt reports rare use of PRN inh Hyponatremia following with Dr. Tsang Diarrhea Transient ischemic attack (TIA) 02/08/2012 (NO CURRENT PROBLEMS) Hyperlipidemia Chronic pain of left knee Osteoarthritis History of colitis Factor V Leiden Spinal stenosis DVT (deep venous thrombosis) LEFT LEG (WAS TAKING WARFARIN 2011) GERD (gastroesophageal reflux disease) HTN (hypertension) Surgical History History of bilateral tubal ligation History of esophagogastroduodenoscopy (EGD) History of colonoscopy History of tooth extraction History of cataract surgery RT/LEFT S/P wrist surgery LEFT History of surgery on arm RT ARM Family History Mother Family history of diabetes mellitus Aunt Family hx of colon cancer Other No family history of adverse response to anesthesia Social History Smoking Status: Never smoker Second Hand Exposure: No; Do You Dip or Chew Tobacco: No; Hx Alcohol Use: No Hx Substance Use: No Preferred Language: Croatian Communication Ability: Effective Visual Impairment: No Limitations Hearing Ability: Normal 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 Beliefs That Will Affect Care: None marital status: Current Living Situation: Spouse Current Living Situation Comment: house current occupational status: retired Feels Safe at Home: Yes Assistive Devices: Cane Physical Exam Vital Signs Vital Signs - 24 hr 03/11/23 15:56 03/11/23 19:35 03/11/23 19:36 Temperature 36.4 C L 37.3 C Temperature Source Temporal Artery Scan Oral Pulse Rate 98 H 95 H Pulse Rate [Apical] 97 H Pulse Rhythm [Apical] Regular Pulse Strength [Apical] Normal Respiratory Rate 22 19 Respiratory Effort / Characteristics Non-Labored Spontaneous Respiratory Depth Normal Respiratory Pattern Blood Pressure 149/73 H Blood Pressure [Left Arm] 164/92 H Blood Pressure Mean 98 Blood Pressure Mean [Left Arm] 116 Pulse Oximetry 99 92 Oxygen Delivery Method Room Air Room Air Sepsis Recent Fever Within 48 Hours No Sepsis New/Unexplained Change in Mental Status N/A Sepsis Action Taken by Nursing No Action Required 03/11/23 19:58 03/11/23 21:36 Temperature Temperature Source Pulse Rate Pulse Rate [Apical] 99 H Pulse Rhythm [Apical] Regular Pulse Strength [Apical] Normal Respiratory Rate 19 Respiratory Effort / Characteristics Non-Labored Spontaneous Respiratory Depth Normal Respiratory Pattern Regular Blood Pressure Blood Pressure [Left Arm] 132/75 Blood Pressure Mean Blood Pressure Mean [Left Arm] 94 Pulse Oximetry 95 93 Oxygen Delivery Method Room Air Room Air Sepsis Recent Fever Within 48 Hours Sepsis New/Unexplained Change in Mental Status Sepsis Action Taken by Nursing Physical Exam GENERAL: She is oriented to person, place, and time. She appears well-developed and well-nourished. She does not appear distressed. HENT: Exam performed. -Head: Normocephalic and atraumatic. -Right Ear: External ear normal. No mastoid erythema -Left Ear: External ear normal. No mastoid erythema EYES: Conjunctivae and EOM are normal. Pupils are equal, round, and reactive to light. Right eye exhibits no discharge. Left eye exhibits no discharge. No scleral icterus. NECK: Normal range of motion. Neck supple. No JVD present. No spinous process tenderness present. No carotid bruit present. No rigidity. No tracheal deviation and normal range of motion present. CV: Normal rate, regular rhythm, normal heart sounds and intact distal pulses. There is no peripheral edema. Palpable radial pulses bue. PULM/CHEST: Effort normal and breath sounds normal. No respiratory distress. No stridor. She has no wheezes. She has no rales. ABD: The abdomen is soft. There is no tenderness. There is no rebound, no guarding, MUSC/SKEL: Normal range of motion. There is no peripheral edema, tenderness or deformity. LYMPH: No cervical adenopathy. NEURO: She is alert and oriented to person, place, and time. She has normal strength. No cranial nerve deficit or sensory deficit. GCS eye subscore is 4. GCS verbal subscore is 5. GCS motor subscore is 6. Course Course 180: The patient was evaluated in room C1. A complete history and physical exam was performed Cardiac monitoring: An order was placed for continuous cardiac monitoring. The monitor shows a rate of 90 with sinus rhythm interpreted by co 2000: Vital signs stable. Labs and imaging within normal limits. is again saying that he cannot care for the patient at home and wants patient to be admitted. [facility] hospitalist team will be contacted for admission. Medical Decision Making Laboratory Data Attestation: I reviewed the patient's lab results. 03/11/23 16:30 03/11/23 16:30 Lab Results 03/11/23 03/11/23 03/11/23 Range/Units 16:30 16:32 19:07 WBC 11.17 H (4.8-10.8) K/ul RBC 5.03 (4.20-5.40) M/uL Hgb 13.9 (12.0-16.0) g/dl Hct 43.1 (37.0-47.0) % MCV 85.7 (80.0-100.0) fL MCH 27.6 (25.0-34.0) pg MCHC 32.3 (32.0-36.0) g/dL RDW Std Deviation 41.4 (36.4-46.3) fL RDW Coeff of Chrissie 13.3 (11.5-14.5) % Plt Count 352 (130-400) K/uL MPV 11.2 (9.4-12.4) fL Immature Gran % (Auto) 0.5 % Neut % (Auto) 76.7 % Lymph % (Auto) 11.5 % [place] % (Auto) 9.9 % Eos % (Auto) 1.0 % Baso % (Auto) 0.4 % Neut # (Auto) 8.56 H (1.40-6.50) K/uL Lymph # (Auto) 1.28 (1.20-3.40) K/uL [place] # (Auto) 1.11 H (0.11-0.59) K/uL Eos # (Auto) 0.11 (0.00-0.50) K/uL Baso # (Auto) 0.05 (0.00-0.20) K/uL Immature Gran # (Auto) 0.06 (0.01-0.20) K/uL PT Cancelled 10.8 INR Cancelled 1.0 Sodium 136 (136-145) mmol/L Potassium 4.3 (3.5-5.1) mmol/L Chloride 102 (98-107) mmol/L Carbon Dioxide 25 (21-32) mmol/L Anion Gap 9 (3-11) BUN 15 (6-23) mg/dl Creatinine 0.70 (0.6-1.2) mg/dl Est Cr Clr Drug Dosing Not Reportable Est GFR ( Amer) 97.5 ml/min Est GFR (Non-Af Amer) 84.2 ml/min BUN/Creatinine Ratio 21.4 H (10-20) Glucose 102 H (70-99(Fasting)) mg/dl Calcium 9.5 (8.6-10.3) mg/dl Magnesium 2.1 (1.7-2.4) mg/dl Total Bilirubin 0.6 (0.2-1.0) mg/dl AST 19 (13-39) U/L ALT 10 (7-52) U/L Alkaline Phosphatase 67 (34-104) U/L Troponin I High Sens 2.6 (0-14) pg/ml Total Protein 7.8 (6.0-8.3) gm/dl Albumin 4.3 (3.4-5.0) gm/dl Globulin 3.5 (2.5-4.0) gm/dl Albumin/Globulin Ratio 1.2 (0.9-2) TSH 2.587 (0.300-4.500) uIu/ml Adenovirus (PCR) Not Detected (NotDetected) B. pertussis DNA (PCR) Not Detected (NotDetected) B.parapertussis DNA PCR Not Detected (NotDetected) C. pneumoniae DNA (PCR) Not Detected (NotDetected) Coronavirus OC43 (PCR) Not Detected (NotDetected) Coronavirus HKU1 (PCR) Not Detected (NotDetected) Coronavirus 229E (PCR) Not Detected (NotDetected) SARS-CoV-2 (PCR) DETECTED A* (NotDetected) Coronavirus NL63 (PCR) Not Detected (NotDetected) Human Metapneumovir PCR Not Detected (NotDetected) Influenza Type A (PCR) Not Detected (NotDetected) Influenza Type B (PCR) Not Detected (NotDetected) M. pneumoniae (PCR) Not Detected (NotDetected) Parainfluenza 1 (PCR) Not Detected (NotDetected) Parainfluenza 2 (PCR) Not Detected (NotDetected) Parainfluenza 3 (PCR) Not Detected (NotDetected) Parainfluenza 4 (PCR) Not Detected (NotDetected) RSV (PCR) Not Detected (NotDetected) Entero/Rhino (PCR) Not Detected (NotDetected) Imaging Data Attestation: I personally reviewed and interpreted this imaging study as follows: My Impression: Chest x-ray negative. Airway clear. No pneumothorax. No consolidation. No cardiomegaly or cephalization.. No free air under the diaphragm. No fractures of the skeletal structures. Radiologist's Impression: Chest X-Ray 03/11/23 16:07 SINGLE VIEW CHEST CLINICAL HISTORY: Generalized weakness. FINDINGS: An AP upright chest radiograph is compared to chest x-ray and chest CT dated 03/01/2023. The cardiomediastinal silhouette is top normal for projection. Chronic interstitial thickening similar to previous. There is mild elevation of the right hemidiaphragm and mild bibasilar atelectasis. The lungs and pleural spaces are clear. No pneumothorax is seen. The skeletal structures are osteopenic. The bony thorax is grossly intact. IMPRESSION: No active disease in the chest. ACT 112: Negative or not required by law. Electronically signed by: Deon Houston M.D. 03/11/2023 5:[address] 03/11/23 18:36 CT SCAN OF THE BRAIN WITHOUT IV CONTRAST CLINICAL HISTORY: Generalized weakness. COMPARISON STUDY: CT of the brain dated 03/01/2023. TECHNIQUE: Unenhanced axial CT scan of the brain is performed from the vertex to the skull base. A dose lowering technique was utilized adhering to the principles of ALARA. CT DOSE: 547.75 mGy.cm FINDINGS: Brain parenchyma: There is age-related involutional change noting moderate subcortical and periventricular microangiopathic disease. There is no hemorrhage, mass effect, or evidence of acute territorial ischemia by CT criteria. Dave-white matter differentiation is preserved. No extra-axial fluid collection is seen. Ventricles, sulci, cisterns: Prominent secondary to involutional change. Intracranial vasculature: There is atherosclerotic calcification of the cavernous carotid and vertebral arteries. Calvarium: Unremarkable. Sinuses and mastoids: The visualized paranasal sinuses are clear. The mastoid air cells are well pneumatized. Orbits: The bony orbits are grossly intact. There are bilateral ocular lens implants. IMPRESSION: There is no hemorrhage, mass effect, or evidence of acute territorial ischemia by CT criteria. ACT 112: Negative or not required by law. Electronically signed by: Deon Houston M.D. 03/11/2023 7:[address] [facility] Narrative 1806: The patient was evaluated in room C1. A complete history and physical exam was performed Cardiac monitoring: An order was placed for continuous cardiac monitoring. The monitor shows a rate of 90 with sinus rhythm interpreted by me 2000: Vital signs stable. Labs and imaging within normal limits. is again saying that he cannot care for the patient at home and wants patient to be admitted. [facility] Hospitalist team will be contacted for admission. Impression & Plan COVID-19 Discharge Plan Visit Data Chief Complaint: Weakness Stated Complaint: WEAKNESS X1 DAY, COVID+ ON 03-01-23 ED Provider: Keagan Mendieta Discharge Problem: COVID-19 Patient Disposition: Admitted As Inpatient Discharge Instructions Interventions: ED Discharge Assessment Last Done: 03/11/23 23:31
[2023-03-11 19:51] LABS: Prothrombin Time 10.8 Seconds (9.0-12.0)
[2023-03-11 21:53] LABS: Appearance Urine Clear (Clear); Bacteria Urine Automated Negative (Negative); Bilirubin Urine Negative (Negative); Blood Urine Trace (Negative); Color Urine Yellow; Glucose Urine UA Negative (Negative); Ketones Urine Negative (Negative); Leukocyte Esterase Urine 2+ (Negative); Nitrite Urine Negative (Negative); Protein Urine Negative (Negative); Specific Gravity Urine 1.013 (1.000-1.030); Urobilinogen Urine Negative (Negative)
--- NOTE | 2023-03-11 22:46 | History & Physical Report ---
Date of Service March 11, 2023 Assessment & Plan (1) Weakness: Plan: 77-year-old female with past medical history significant for mild intermittent asthma, hypertension, irritable bowel syndrome, GERD, chronic interstitial cystitis without hematuria, generalized osteoarthritis, memory disturbance, factor V Leiden mutation, history of CVA, hyponatremia, history of DVT comes because of weakness. Patient was recently diagnosed COVID on March 01 and got admitted and was discharged on March 03. Patient states after going home she was fine for few days. Then she was feeling very weak and tired. Not able to ambulate much. Legs are sore. This reason she came back today. Thinks she might have low-grade fever. A week ago she had some chest discomfort that got resolved. Appetite is okay. No headache. Vision is okay. No runny nose or sore throat. No cough. No shortness of breath. No abdominal pain. Normal bowel and bladder movements. Weakness Recent COVID PT OT May need placement COVID COVID precautions Possible UTI Rocephin Follow culture History of asthma Continue home inhalers Hypertension On amlodipine We will monitor GERD Omeprazole History of hyponatremia On salt tablets We will follow labs History of factor V Leyden deficiency History of DVT Seems current not on anticoagulation Needs follow-up DVT prophylaxis Lovenox Disposition Medical floor Full code History of Present Illness Chief Complaint: Weakness Primary Care Provider: Magda Taylor, 77-year-old female with past medical history significant for mild intermittent asthma, hypertension, irritable bowel syndrome, GERD, chronic interstitial cystitis without hematuria, generalized osteoarthritis, memory disturbance, factor V Leiden mutation, history of CVA, hyponatremia, history of DVT comes because of weakness. Patient was recently diagnosed COVID on March 01 and got admitted and was discharged on March 03. Patient states after going home she was fine for few days. Then she was feeling very weak and tired. Not able to ambulate much. Legs are sore. This reason she came back today. Thinks she might have low-grade fever. A week ago she had some chest discomfort that got resolved. Appetite is okay. No headache. Vision is okay. No runny nose or sore throat. No cough. No shortness of breath. No abdominal pain. Normal bowel and bladder movements. Past medical history as mentioned above Past social history. Colonoscopy. Cystoscopy. Dilatation curettage. EGD. EGD with endoscopic ultrasound. Bilateral cataracts. Social history. . Former smoker. Smoked for 3 years at age of 22. No alcohol. No drug use. Family history. Mother had diabetes. Eye problems. Heart disorder. Hypertension. Father had heart disorder. Allergies Allergy/AdvReac Type Severity Reaction Status Date / Time indomethacin Allergy Intermediate "FEEL Verified 03/11/23 19:19 STRANGE AND OUT OF IT" adhesive Allergy Mild RASH WITH Verified 03/11/23 19:19 EXTENDED USE bacitracin Allergy Mild RASH Verified 03/11/23 19:19 latex Allergy Mild RASH WITH Verified 03/11/23 19:19 LONGER EXPOSURE neomycin Allergy Mild RASH Verified 03/11/23 19:19 polymyxin B Allergy Mild RASH Verified 03/11/23 19:19 Sulfa (Sulfonamide Allergy Mild RASH Verified 03/11/23 19:19 Antibiotics) Home Medications Medication Instructions Recorded Confirmed Type aspirin 325 mg tablet 325 mg PO QAM 05/23/18 03/11/23 History calcium carbonate 600 mg-vitamin 1 cap PO QDL 05/23/18 03/11/23 History D3 62.5 mcg (2,500 unit) capsule esomeprazole magnesium 40 mg 40 mg PO DAILYBB 05/23/18 03/11/23 History capsule,delayed release (Nexium) ipratropium bromide 21 mcg (0.03 2 sprays intranasal BID 05/23/18 03/11/23 History %) nasal spray montelukast 10 mg tablet 10 mg PO HS 05/23/18 03/11/23 History (Singulair) multivitamin 1 tab PO QDL 05/23/18 03/11/23 History vitamin E 268 mg (400 unit) capsule 400 unit PO QDL 01/26/19 03/11/23 History calcium carbonate 400 mg calcium 400 mg PO DIRECTED PRN Gi Upset 05/10/19 03/11/23 History (1,000 mg) chewable tablet (Tums Ultra) fluticasone propionate 50 2 spray intranasal QAM 07/29/20 03/11/23 History mcg/actuation nasal spray,suspension amlodipine 2.5 mg tablet 2.5 mg PO QAM #90 tabs 12/06/22 03/11/23 Rx acetaminophen 500 mg tablet 500 mg PO DIRECTED PRN Pain 03/01/23 03/11/23 History (Tylenol Extra Strength) albuterol sulfate 90 mcg/actuation 2 puff inhalation QID PRN 03/01/23 03/11/23 History aerosol inhaler (ProAir HFA) Shortness Of Breath Or Wheezing famotidine 20 mg tablet 20 mg PO BID 03/01/23 03/11/23 History meclizine 25 mg tablet 25 mg PO HS PRN dizzyness 03/01/23 03/11/23 History ondansetron 4 mg disintegrating 4 mg translingual Q8 PRN Nausea 03/01/23 03/11/23 History tablet trolamine salicylate 10 % topical 1 applic topical BID PRN Pain 03/01/23 03/11/23 History cream (Aspercreme) sodium chloride 1,000 mg soluble 1,000 mg PO BID 03/11/23 03/11/23 History tablet Past Med/Surg History Medical History Asthma pt reports rare use of PRN inh Hyponatremia following with Dr. Tsang Diarrhea Transient ischemic attack (TIA) 02/08/2012 (NO CURRENT PROBLEMS) Hyperlipidemia Chronic pain of left knee Osteoarthritis History of colitis Factor V Leiden Spinal stenosis DVT (deep venous thrombosis) LEFT LEG (WAS TAKING WARFARIN 2011) GERD (gastroesophageal reflux disease) HTN (hypertension) Surgical History History of bilateral tubal ligation History of esophagogastroduodenoscopy (EGD) History of colonoscopy History of tooth extraction History of cataract surgery RT/LEFT S/P wrist surgery LEFT History of surgery on arm RT ARM Family History Mother Family history of diabetes mellitus Aunt Family hx of colon cancer Other No family history of adverse response to anesthesia Social History Smoking Status: Never smoker Second Hand Exposure: No; Do You Dip or Chew Tobacco: No; Hx Alcohol Use: No Hx Substance Use: No Preferred Language: Mongolian Communication Ability: Effective Visual Impairment: No Limitations Hearing Ability: Normal Emergency Room Specialist Required: No Beliefs That Will Affect Care: None marital status: Current Living Situation: Spouse Current Living Situation Comment: house current occupational status: retired Feels Safe at Home: Yes Assistive Devices: Cane Review of Systems Review of Systems: All systems reviewed & are unremarkable except as noted in HPI & below Physical Exam Physical Exam: General- Not in distress Head- atraumatic Eyes- PERRL. ENT- oropharynx clear Neck- supple, no JVD. Lungs- clear to auscultation no wheezing or crackles Heart- regular rhythm; no murmur, no gallop. Abdomen- normal bowel sounds, soft, nontender, no distension Extremities- no pretibial edema, no erythema seen Neuro- alert, oriented x 3; PERRL no facial palsy; no dysarthria; moves extremities Skin- warm & dry Results & Data Results & Data Vital Signs (Past 12 Hours) Vital Signs Temp Pulse Pulse Resp BP BP Pulse Ox 03/11/23 21:36 99 H 19 132/75 93 03/11/23 19:58 95 03/11/23 19:36 95 H 03/11/23 19:35 37.3 C 97 H 19 164/92 H 92 03/11/23 15:56 36.4 C L 98 H 22 149/73 H 99 O2 Del Method 03/11/23 21:36 Room Air 03/11/23 19:58 Room Air 03/11/23 19:36 03/11/23 19:35 Room Air 03/11/23 15:56 Room Air Diagnostic Findings Laboratory Results WBC 11.17 K/ul (4.8-10.8) H 03/11/23 16:30 RBC 5.03 M/uL (4.20-5.40) 03/11/23 16:30 Hgb 13.9 g/dl (12.0-16.0) 03/11/23 16:30 Hct 43.1 % (37.0-47.0) 03/11/23 16:30 MCV 85.7 fL (80.0-100.0) 03/11/23 16:30 MCH 27.6 pg (25.0-34.0) 03/11/23 16:30 MCHC 32.3 g/dL (32.0-36.0) 03/11/23 16:30 RDW Std Deviation 41.4 fL (36.4-46.3) 03/11/23 16:30 RDW Coeff of Chrissie 13.3 % (11.5-14.5) 03/11/23 16:30 Plt Count 352 K/uL (130-400) 03/11/23 16:30 MPV 11.2 fL (9.4-12.4) 03/11/23 16:30 Immature Gran % (Auto) 0.5 % 03/11/23 16:30 Neut % (Auto) 76.7 % 03/11/23 16:30 Lymph % (Auto) 11.5 % 03/11/23 16:30 White % (Auto) 9.9 % 03/11/23 16:30 Eos % (Auto) 1.0 % 03/11/23 16:30 Baso % (Auto) 0.4 % 03/11/23 16:30 Neut # (Auto) 8.56 K/uL (1.40-6.50) H 03/11/23 16:30 Lymph # (Auto) 1.28 K/uL (1.20-3.40) 03/11/23 16:30 White # (Auto) 1.11 K/uL (0.11-0.59) H 03/11/23 16:30 Eos # (Auto) 0.11 K/uL (0.00-0.50) 03/11/23 16:30 Baso # (Auto) 0.05 K/uL (0.00-0.20) 03/11/23 16:30 Immature Gran # (Auto) 0.06 K/uL (0.01-0.20) 03/11/23 16:30 PT 10.8 Seconds (9.0-12.0) 03/11/23 19:07 INR 1.0 (0.9-1.1) 03/11/23 19:07 Sodium 136 mmol/L (136-145) 03/11/23 16:30 Potassium 4.3 mmol/L (3.5-5.1) 03/11/23 16:30 Chloride 102 mmol/L (98-107) 03/11/23 16:30 Carbon Dioxide 25 mmol/L (21-32) 03/11/23 16:30 Anion Gap 9 (3-11) 03/11/23 16:30 BUN 15 mg/dl (6-23) 03/11/23 16:30 Creatinine 0.70 mg/dl (0.6-1.2) 03/11/23 16:30 Est Cr Clr Drug Dosing Not Reportable 03/11/23 16:30 Est GFR ( Amer) 97.5 ml/min 03/11/23 16:30 Est GFR (Non-Af Amer) 84.2 ml/min 03/11/23 16:30 BUN/Creatinine Ratio 21.4 (10-20) H 03/11/23 16:30 Glucose 102 mg/dl (70-99(Fasting)) H 03/11/23 16:30 Calcium 9.5 mg/dl (8.6-10.3) 03/11/23 16:30 Magnesium 2.1 mg/dl (1.7-2.4) 03/11/23 16:30 Total Bilirubin 0.6 mg/dl (0.2-1.0) 03/11/23 16:30 AST 19 U/L (13-39) 03/11/23 16:30 ALT 10 U/L (7-52) 03/11/23 16:30 Alkaline Phosphatase 67 U/L (34-104) 03/11/23 16:30 Troponin I High Sens 2.6 pg/ml (0-14) 03/11/23 16:30 Total Protein 7.8 gm/dl (6.0-8.3) 03/11/23 16:30 Albumin 4.3 gm/dl (3.4-5.0) 03/11/23 16:30 Globulin 3.5 gm/dl (2.5-4.0) 03/11/23 16:30 Albumin/Globulin Ratio 1.2 (0.9-2) 03/11/23 16:30 TSH 2.587 uIu/ml (0.300-4.500) 03/11/23 16:30 Urine Color Yellow 03/11/23 Unknown Urine Appearance Clear (Clear) 03/11/23 Unknown Urine pH 7.0 (4.5-7.5) 03/11/23 Unknown Ur Specific [place] 1.013 (1.000-1.030) 03/11/23 Unknown Urine Protein Negative (Negative) 03/11/23 Unknown Urine Glucose (UA) Negative (Negative) 03/11/23 Unknown Urine Ketones Negative (Negative) 03/11/23 Unknown Urine Blood Trace (Negative) H 03/11/23 Unknown Urine Nitrite Negative (Negative) 03/11/23 Unknown Urine Bilirubin Negative (Negative) 03/11/23 Unknown Urine Urobilinogen Negative (Negative) 03/11/23 Unknown Ur Leukocyte Esterase 2+ (Negative) H 03/11/23 Unknown Urine WBC (Auto) 10-30 /hpf (0-5) H 03/11/23 Unknown Urine RBC (Auto) 5-10 /hpf (0-4) H 03/11/23 Unknown U Hyaline Cast (Auto) 1-5 /lpf (0-5) 03/11/23 Unknown U Epithel Cells (Auto) 10-20 /lpf (0-5) H 03/11/23 Unknown Urine Bacteria (Auto) Negative (Negative) 03/11/23 Unknown Adenovirus (PCR) Not Detected (NotDetected) 03/11/23 16:32 B. pertussis DNA (PCR) Not Detected (NotDetected) 03/11/23 16:32 B.parapertussis DNA PCR Not Detected (NotDetected) 03/11/23 16:32 C. pneumoniae DNA (PCR) Not Detected (NotDetected) 03/11/23 16:32 Coronavirus OC43 (PCR) Not Detected (NotDetected) 03/11/23 16:32 Coronavirus HKU1 (PCR) Not Detected (NotDetected) 03/11/23 16:32 Coronavirus 229E (PCR) Not Detected (NotDetected) 03/11/23 16:32 SARS-CoV-2 (PCR) DETECTED (NotDetected) A* 03/11/23 16:32 Coronavirus NL63 (PCR) Not Detected (NotDetected) 03/11/23 16:32 Human Metapneumovir PCR Not Detected (NotDetected) 03/11/23 16:32 Influenza Type A (PCR) Not Detected (NotDetected) 03/11/23 16:32 Influenza Type B (PCR) Not Detected (NotDetected) 03/11/23 16:32 M. pneumoniae (PCR) Not Detected (NotDetected) 03/11/23 16:32 Parainfluenza 1 (PCR) Not Detected (NotDetected) 03/11/23 16:32 Parainfluenza 2 (PCR) Not Detected (NotDetected) 03/11/23 16:32 Parainfluenza 3 (PCR) Not Detected (NotDetected) 03/11/23 16:32 Parainfluenza 4 (PCR) Not Detected (NotDetected) 03/11/23 16:32 RSV (PCR) Not Detected (NotDetected) 03/11/23 16:32 Entero/Rhino (PCR) Not Detected (NotDetected) 03/11/23 16:32 Impressions Chest X-Ray 03/11/23 16:07 SINGLE VIEW CHEST CLINICAL HISTORY: Generalized weakness. FINDINGS: An AP upright chest radiograph is compared to chest x-ray and chest CT dated 03/01/2023. The cardiomediastinal silhouette is top normal for projection. Chronic interstitial thickening similar to previous. There is mild elevation of the right hemidiaphragm and mild bibasilar atelectasis. The lungs and pleural spaces are clear. No pneumothorax is seen. The skeletal structures are osteopenic. The bony thorax is grossly intact. IMPRESSION: No active disease in the chest. ACT 112: Negative or not required by law. Electronically signed by: Deon Houston M.D. 03/11/2023 5:[address] 03/11/23 18:36 CT SCAN OF THE BRAIN WITHOUT IV CONTRAST CLINICAL HISTORY: Generalized weakness. COMPARISON STUDY: CT of the brain dated 03/01/2023. TECHNIQUE: Unenhanced axial CT scan of the brain is performed from the vertex to the skull base. A dose lowering technique was utilized adhering to the principles of ALARA. CT DOSE: 547.75 mGy.cm FINDINGS: Brain parenchyma: There is age-related involutional change noting moderate subcortical and periventricular microangiopathic disease. There is no hemorrhage, mass effect, or evidence of acute territorial ischemia by CT criteria. Dave-white matter differentiation is preserved. No extra-axial fluid collection is seen. Ventricles, sulci, cisterns: Prominent secondary to involutional change. Intracranial vasculature: There is atherosclerotic calcification of the cavernous carotid and vertebral arteries. Calvarium: Unremarkable. Sinuses and mastoids: The visualized paranasal sinuses are clear. The mastoid air cells are well pneumatized. Orbits: The bony orbits are grossly intact. There are bilateral ocular lens implants. IMPRESSION: There is no hemorrhage, mass effect, or evidence of acute territorial ischemia by CT criteria. ACT 112: Negative or not required by law. Electronically signed by: Deon Houston M.D. 03/11/2023 7:01 PM ECG Additional Comments: ECG. Normal sinus rhythm with rate of 93. No significant change was found. Code Status & VTE Plan VTE Prophylaxis Plan VTE Prophylaxis will be ordered: Yes
[2023-03-12] MEDS ORDERED: ACETAMINOPHEN 325 MG TAB PO PRN (00:15)
[2023-03-12] MEDS ORDERED: MECLIZINE HCL 25 MG TAB PO PRN (00:15)
[2023-03-12] MEDS ORDERED: D5W AND 1/2NSS 1,000 ML IV SCH (00:15)
[2023-03-12] MEDS ORDERED: ALBUTEROL HFA 8 GM INHALER INH PRN (00:15)
[2023-03-12] MEDS ORDERED: POLYETHYLENE (MIRALAX) 17 GM PACK PO PRN (00:15)
[2023-03-12] MEDS ORDERED: Patient's HEIGHT &/or WEIGHT Needed STA (02:05)
[2023-03-12 04:54] LABS: Basophils # (auto) 0.06 K/uL (0.00-0.20); Basophils % (auto) 0.6 %; Hematocrit (blood only) 39.8 % (37.0-47.0); Hemoglobin 12.8 g/dl (12.0-16.0); Immature Granulocytes # (auto) 0.07 K/uL (0.01-0.20); Immature Granulocytes % (auto) 0.7 %; Lymphocytes # (auto) 1.62 K/uL (1.20-3.40); Mean Corpuscular Hemoglobin 27.6 pg (25.0-34.0); Mean Corpuscular Hgb Conc 32.2 g/dL (32.0-36.0); Mean Platelet Volume 11.8 fL (9.4-12.4); Monocytes # (auto) 1.38 K/uL (0.11-0.59); Monocytes % (auto) 13.7 %; Neutrophils # (auto) 6.87 K/uL (1.40-6.50); Platelet Count 257 K/uL (130-400); RDW Coefficient of Variation 13.4 % (11.5-14.5); RDW Standard Deviation 42.2 fL (36.4-46.3); Red Blood Count 4.63 M/uL (4.20-5.40)
[2023-03-12 04:57] LABS: BUN Creatinine Ratio 19.1 (10-20); Calcium 9.4 mg/dl (8.6-10.3); Creatinine Clr Calc Pharmacy 74.2 ml/min; Est GFR (African American) 98.5 ml/min; Magnesium 2.2 mg/dl (1.7-2.4); Potassium 4.6 mmol/L (3.5-5.1)
[2023-03-12] MEDS: PANTOprazole 40 MG TAB PO SCH (06:35)
[2023-03-12] MEDS ORDERED: HYDROmorphone INJ 0.5 MG/0.5 ML SYR IV STA (06:55)
--- NOTE | 2023-03-12 08:50 | Ultrasound Report ---
RIGHT UPPER EXTREMITY ARTERIAL DOPPLER ULTRASOUND CLINICAL HISTORY: Right forearm swollen and severe pain. COMPARISON STUDY: No previous studies for comparison. TECHNIQUE: Sonography of the arterial system of the right upper extremity was performed. FINDINGS: Right subclavian, axillary, brachial, radial and ulnar arteries were patent. Biphasic wavef orms were noted. No elevated velocities were noted. No vessel occlusion was identified. IMPRESSION: No stenoses within the right upper extremity. Patent vessels. ACT 112: Negative or not required by law. Electronically signed by: Dewayne Cuba M.D. 03/12/2023 8:49 AM
--- NOTE | 2023-03-12 08:50 | Ultrasound Report ---
RIGHT UPPER EXTREMITY VENOUS DOPPLER ULTRASOUND CLINICAL HISTORY: right forearm swollen and severe pain. COMPARISON STUDY: No previous studies for comparison. TECHNIQUE: Sonography of the venous system of the right upper extremity was performed. FINDINGS: The right internal jugular, subclavian, brachial, radial, ulnar, cephalic and basilic veins were patent. No venous thrombus was identified within the right upper extremity. No fluid collection s were identified. There is right forearm edema. IMPRESSION: No venous thrombus within the right upper extremity. ACT 112: Negative or not required by law. Electronically signed by: Dewayne Cuba M.D. 03/12/2023 8:47 AM
[2023-03-12] MEDS: cefTRIAXone SODIUM 2,000 MG in DEXTROSE 5 % MINI-B 50 ML IV SCH (09:08)
[2023-03-12] MEDS: FLUTICASONE PROPIONATE NA SPR 16 GM BTL SCH (09:12)
[2023-03-12] MEDS: FAMOTIDINE 20 MG TAB PO SCH ×2 (09:12→20:07)
[2023-03-12] MEDS: ENOXAPARIN INJ 40 MG/0.4 ML SYR SQ SCH (09:13)
[2023-03-12] MEDS: SODIUM CHLORIDE 1 GM TABLET PO SCH ×2 (09:13→20:08)
[2023-03-12] MEDS: IPRATROPIUM BROMIDE NASAL SPRAY 0.06% 15ML NAE SCH ×2 (09:13→20:08)
[2023-03-12] MEDS: ASPIRIN 325 MG ECTAB PO SCH (09:14)
[2023-03-12] MEDS: amLODIPine BESYLATE 5 MG TAB PO SCH (09:14)
--- OUTSIDE RECORDS SUMMARY | 2023-03-12 09:44 | External Medical Summary | Summary of Care ---
Author Name Unknown Organization [facility] Address [address] [address] Phone [phone] Care Team Providers Care Customs Officer Name Role Phone Antoniashayy Magda Baker Primary Care Provider [phone] Reason for Visit * Reason Onset Date Comments Hospital Follow-Up 03/04/2023 LOUIE Encounter Details Date Type Department Care Team (Late st Contact Info) Description 03/04/2023 Telephone [facility] [place] [address] [place] [address] Arely Tobias, ERNA Hospital Follow-Up (LOUIE) Allergies Active Allergy Reactions Criticality Noted Date [...] as of this encounter (statuses as of 03/04/2023) Medications Medication Sig Dispensed Refills Start Date End Date Status ASPIRIN 325 MG PO TABS 1 daily 0 Active acetaminophen (TYLENOL) 500 MG Tablet Take 2 Tablets by mouth in the morning and 2 Tablets before bedtime. 100 Tab 0 02/08/2018 Active Azelastine-Fluticason e (DYMISTA) 137-50 MCG/ACT nasal sprayIndications:External Grinder Tender rodrick rhinitis Administer 1 [place] into nostril 2 times a day. Use [...] by mouth 3 times a day. -per LoydNix Hydra-Swipe.to 05/23 270 Tab 1 09/10/2019 Active Additional Information Patient taking differently:1,000 mg OralBID (0700,1900), -per Waffle-Swipe.to 05/23, Reported on 05/13/2022 amLODIPine Besylate 2.5 [...] bedtime. 90 Tablet 3 11/02/2021 Active Ipratropium [place] 0.03 % Nasal SolutionIndications:C hronic rhinitis 1 [...] as of this encounter (statuses as of 03/04/2023) Active Problems Problem Noted Date Diagnosed Date [...] Overview: amlodipine 10mg Hyponatremia 01/18/2018 Overview: Enio [id number] Na Cl 1gm bid Factor 5 Leiden [...] 08/23-+2.5/-2.1--L-m R-consider dc actonel ( st ? [id number] then saw [facility]) Irritable bowel syndrome 04/15/2003 Overview: Csope 09/2013-nml --rpt 5 yrs(son pre-can P) DJD, CERVICAL SPINE 05/22/2002 Mild intermittent asthma without complication Overview: singulair documented as of this encounter (statuses as of 03/04/2023) Resolved Problems Problem Noted Date Diagnosed Date [...] as of this encounter (statuses as of 03/04/2023) Immunizations Name Administration Dates Next Due COVID-19 mRNA, LNP-s, No Pre serve, 2-Dose Series (Fooala) 12/25/2020,05/03/2020,04/12/2020 Pneumococcal Conjugate Vacc, 13 Valent (Prevnar) 11/02/2018 Season Influenza, Quad, PF, Adjuvanted, 65+ Yrs, IM (FLUAD) 12/12/2019 Seasonal Influenza, PF, 6 M & above, IM , (FluLaval or Fluzone) 11/27/2018 11/28/2019 Seasonal Influenza, Quadriva lent Hd (Fluzone Hd) [...] encounter Miscellaneous Notes * Telephone Encounter - Arely Tobias RN - 03/04/2023 9:13 AM EST Images from the original note were not included. Transitions of Care Note Reason for Referral:Recent Admission Phone visit for follow up: LOUIE Admitted to: [facility], Date: 03/01/2023 Discharged to: Home with self care, Out patient rehab referral, Date: 03/03/2023 Diagnosis driving hospitalization: Illness covid Source/Contact: Patient SUBJECTIVE Consent: Verbal consent for review of hospital discharge: Yes REVIEW OF SYSTEMS Patient/Other Reports: Current patient/caregiver problems or concerns: Feeling weak. CV: Denies problems Pulmonary: Cough- non-productive Chills/Sweats/Fever:Has experienced some chills but temperature has remained normal Appetite:Denies problems such as nausea, vomiting, burning, decreased appetite Current diet: regular Bowel: denies problems date of last BM: 03/04/2023 Bladder: denies problems Wound (If applicable): N/A Pain:Location- back Taking tylenol which is helping Sleep:Denies problems FUNCTIONAL STATUS: ADL'S: Needs Assistance With:N/A as pt is independent IADL'S: Needs Assistance With:Grocery Shopping, Cooking food, and Routine Housework Cognitive and Mental Health: denies problems, alert and oriented x 3, and able to communicate, understand instructions, process information. MEDICATION RECONCILIATION Medications: Discharge med list reviewed with patient or caregiver Patient not taking TUMS or Singular at this time ASSESSMENT Medication Risk Assessment: No risks identified Did patient fail outpatient treatment? No Discharge instructions available for review? Yes PLAN Symptom Monitoring Interventions:Member/caregiver education - signs and symptoms to contact PrimaryCare (DO NOT DELETE-Three don symptoms patient is to report to PCP) 1. Fever greater than 101 2. SOB, Wheezing 3. Swelling of pain of lower extremities Health And Wellness AdvisorPetroleum Analyst of Care interventions/Action Plan: 5 - 7 day follow-up with PCP in place - Date: 03/16/23 at 1130 Educated on role of LOUIE completed with patient/caregiver. Educated patient/caregiver on patient right to have input on LOUIE plan of care. Verification of Home Health/DME if indicated: YES Referral for PT/OT not yet contacted Identified Care Gaps: Yes Care Gaps closed this call: Appointment made or confirmed and Transition of Care follow-up communication Re-evaluation of Plan of Care and progress towards goals achievement: Patient education this visit: Verbal, Encouraged ambulation, deep breathing and coughing, and fluids. Informed patient that therewas a weekend clinic at [facility] should she need it. Plan to discharge needs met, verbalizes understanding and agrees with plan. Arely Azar, ERNA documented in this encounter Plan of Treatment Upcoming Encounters Date Type Department Care Team (Late st Contact Info) Description 03/16/2023 11:30 AM EST Office Visit [facility] [address] [place] [phone] Magda Taylor, [address] [place] [address] 08/04/2023 3:20 PM EDT Office Visit Rheumatology [facility] [address] [place] [address] Jamar Alvarez MD [address] [place] [address] 08/09/2023 2:30 PM EDT Office Visit Otolaryngology [facility] [address] [facility] [place] [address] Hal Padilla, DO [address] [place] [address] Scheduled Procedures Name Priority Associated Diagnoses Date/Ti [...] D LEVEL ONCE IN A LIFETIME-USE SMARTSET# [id number] Completed 01/18/2018, 02/13/2007 Zoster Vaccines Discontinued 05/09/2019 [...] Directives occurred with: Not Discussed Care Teams Customs Officer Relationship Specialty Start Date End Date Magda Taylor DO [address] [place] [address] PCP - General Family Medicine 11/02/18 documented as of this encounter
--- OUTSIDE RECORDS SUMMARY | 2023-03-12 09:44 | External Medical Summary | Summary of Care ---
Author Name Unknown Organization [facility] Address [address] [place] [facility] [place] [address] Phone [phone] Care Team Providers Care Paper Tube Grader Name Role Phone Magda Taylor Primary Care Provider Encounter Details Date Type Department Care Team (Late st Contact Info) Description 03/08/2023 Orders Only Outcomes Research Department [address] [place] [address] Brenda Boston CHRA [facility] Research Other*[id number] Allergies Active Allergy Reactions Criticality Noted Date [...] as of this encounter (statuses as of 03/08/2023) Medications Medication Sig Dispensed Refills Start Date End Date Status ASPIRIN 325 MG PO TABS 1 daily 0 Active acetaminophen (TYLENOL) 500 MG Tablet Take 2 Tablets by mouth in the morning and 2 Tablets before bedtime. 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 Use [...] by mouth 3 times a day. -per [employer] 05/23 270 Tab 1 09/10/2019 Active Additional Information Patient taking differently:1,000 mg OralBID (0700,1900), -per [employer] 05/23, Reported on 05/13/2022 amLODIPine Besylate 2.5 [...] bedtime. 90 Tablet 3 11/02/2021 Active Ipratropium [place] 0.03 % Nasal SolutionIndications:C hronic rhinitis 1 [...] as of this encounter (statuses as of 03/08/2023) Active Problems Problem Noted Date Diagnosed Date [...] Overview: amlodipine 10mg Hyponatremia 01/18/2018 Overview: Enio [id number] Na Cl 1gm bid Factor 5 Leiden [...] 08/23-+2.5/-2.1--L-m R-consider dc actonel ( st ? [id number] then saw [facility]) Irritable bowel syndrome 04/15/2003 Overview: Csope 09/2013-nml --rpt 5 yrs(son pre-can P) DJD, CERVICAL SPINE 05/22/2002 Mild intermittent asthma without complication Overview: singulair documented as of this encounter (statuses as of 03/08/2023) Resolved Problems Problem Noted Date Diagnosed Date [...] 04/15/2003 NONALLERGIC RHINITIS 09/11/2002 019 Overview: On astjatinder,harriett,hugot NS AC SUPP OTITIS MEDIA, RIGHT 05/22/2002 07/09/2003 AC MAXILLARY SINUSITIS 10/11/200107/08 ACUTE URI NOS 10/11/2001 07/09/2003 Urinary frequency 11/27/2018 documented as of this encounter (statuses as of 03/08/2023) Immunizations Name Administration Dates Next Due COVID-19 mRNA, LNP-s, No Pre serve, 2-Dose Series (Brainlike) 12/25/2020,05/03/2020,04/12/2020 Pneumococcal Conjugate Vacc, 13 Valent (Prevnar) [...] Description 03/16/2023 11:30 AM EST Office Visit [facility] [address] [facility] [place] [address] Magda Taylor DO [address] [place] [address] 08/04/2023 3:20 PM EDT Office Visit Rheumatology [place] [id number] [place] [address] Jamar Alvarez MD [facility] [place] [address] 08/09/2023 2:30 PM EDT Office Visit Otolaryngology [facility] [address] [place] [address] Hal Padilla DO [address] [place] [address] Scheduled Orders Name Type Priority Associated Diagnoses Orde r Schedule MYCODE SUBSEQUENT ADULT Lab Routine [facility] Research Other*[id number] Every 6 Months for 2 Occurrences starting 03/08/2023 until 03/27/2024 Scheduled Procedures Name Priority Associated Diagnoses Date/Ti [...] D LEVEL ONCE IN A LIFETIME-USE SMARTSET# [id number] Completed 01/18/2018, 02/13/2007 Zoster Vaccines Discontinued 05/09/2019 [...] this encounter Visit Diagnoses Diagnosis [facility] Other*[id number] documented in this encounter Advance Directives Latest [...] Directives occurred with: Not Discussed Care Teams Paper Tube Grader Relationship Specialty Start Date End Date Magda Taylor DO [address] [place] [address] PCP - General Family Medicine 11/02/18 documented as of this encounter
[2023-03-12] MEDS: TOCOPHERYL, DL-ALPHA 400 UNITS 180 MG CAP PO SCH (12:33)
[2023-03-12] MEDS: CALCIUM 600MG + VIT D 400 IU TAB PO SCH (12:33)
[2023-03-12] MEDS: MULTIVITAMIN TAB PO SCH (12:33)
--- NOTE | 2023-03-12 16:35 | Hospitalist Progress Note ---
Date of Service March 12, 2023 Assessment & Plan (1) Weakness: Plan: 77-year-old female with past medical history significant for mild intermittent asthma, hypertension, irritable bowel syndrome, GERD, chronic interstitial cystitis without hematuria, generalized osteoarthritis, memory disturbance, factor V Leiden mutation, history of CVA, hyponatremia, history of DVT comes because of weakness. Patient was recently diagnosed COVID on March 01 and got admitted and was discharged on March 03. Patient states after going home she was fine for few days. Then she was feeling very weak and tired. Not able to ambulate much. Legs are sore. This reason she came back today. Thinks she might have low-grade fever. A week ago she had some chest discomfort that got resolved. Appetite is okay. No headache. Vision is okay. No runny nose or sore throat. No cough. No shortness of breath. No abdominal pain. Normal bowel and bladder movements. Generalized weakness likely secondary to COVID-19 virus infection COVID test has been positive on 03/01/2023 and again 03/11/2023 during this admission Reassured and will get PT OT evaluation Clinically a little better May need placement COVID 19 virus infection Remains asymptomatic otherwise COVID precautions Possible UTI Rocephin Follow culture-showing pinpoint growth so far Will continue Rocephin for now Blood cultures have have been negative taken on 03/01/2023 History of asthma Continue home inhalers No acute symptoms Hypertension On amlodipine We will monitor GERD Omeprazole History of hyponatremia On salt tablets We will follow labs History of factor V Leyden deficiency History of DVT Seems current not on anticoagulation Needs follow-up DVT prophylaxis Lovenox Disposition Medical floor Full code Admission and Anticipated Discharge Date Admission Date: March 11, 2023 Subjective 03/12/2023 The patient was seen and examined in emergency room She was admitted with extreme weakness and tiredness and was diagnosed to have COVID-19 virus positive Has been feeling a little better Complains of swelling of the right hand at the site of infusion line Review of Systems Review of Systems: All systems reviewed and are unremarkable except as noted below Respiratory: No respiratory symptoms Musculoskeletal: No acute arthritis Neurologic: Very weak and lethargy Physical Exam Physical Exam: Lying in bed without any acute distress Constitutional: well developed, well nourished, + ill appearing and + obese Eyes: PERRL, conjunctivae normal, anicteric sclerae ENMT: external ear and nose normal, oropharynx normal Neck: trachea midline, no thyromegaly Respiratory: no respiratory distress Auscultation: + diminished lung sounds and + crackles (Minimal crackles at the bases) Cardiovascular: Rate/Rhythm: regular rate and regular rhythm; not tachycardic Heart Sounds: normal S1 and normal S2; no murmur Extremities: + edema (Trace edema bilaterally) Gastrointestinal (Abdomen): Inspection/Auscultation: + abdomen distended and normal bowel sounds Percussion/Palpation: abdomen soft; abdomen nontender Musculoskeletal: No acute arthritis involving any of the joint Neurologic: normal touch/pain/proprioception and moves all extremities; no focal motor deficits Lymphatic: no cervical or axillary lymphadenopathy Results & Data Results & Data Vital Signs (Past 12 Hours) Vital Signs Pulse Resp BP Pulse Ox O2 Del Method O2 Flow Rate 03/12/23 15:57 97 H 16 114/98 95 Room Air 03/12/23 15:00 87 19 Room Air 03/12/23 14:00 91 H 15 Room Air 03/12/23 12:00 93 H 24 188/77 H Room Air 03/12/23 10:00 91 H 20 145/77 H Room Air 03/12/23 07:09 86 03/12/23 06:00 142/75 H 03/12/23 06:00 91 H 13 93 03/12/23 05:00 86 31 H 94 Room Air 0 Laboratory Results Short CBC 03/11/23 03/12/23 Range/Units 16:30 04:24 WBC 11.17 H 10.10 (4.8-10.8) K/ul Hgb 13.9 12.8 (12.0-16.0) g/dl Hct 43.1 39.8 (37.0-47.0) % Plt Count 352 257 (130-400) K/uL BMP 03/11/23 03/12/23 16:30 04:24 Sodium 136 137 Potassium 4.3 4.6 Chloride 102 104 Carbon Dioxide 25 27 BUN 15 13 Creatinine 0.70 0.68 Glucose 102 H 120 H Calcium 9.5 9.4 Liver Function 03/11/23 Range/Units 16:30 Total Bilirubin 0.6 (0.2-1.0) mg/dl AST 19 (13-39) U/L ALT 10 (7-52) U/L Alkaline Phosphatase 67 (34-104) U/L Albumin 4.3 (3.4-5.0) gm/dl Urine 03/11/23 Range/Units Unknown Urine Color Yellow Urine Appearance Clear (Clear) Urine pH 7.0 (4.5-7.5) Ur Specific [place] 1.013 (1.000-1.030) Urine Protein Negative (Negative) Urine Glucose (UA) Negative (Negative) Medications Administered Current Inpatient Medications Acetaminophen (Acetaminophen 325 Mg Tab) 650 mg PO Q4H PRN PRN Reason: pain/fever Stop: 04/11/23 00:14 Last Admin: 03/12/23 06:43 Dose: 650 mg Albuterol (Albuterol Hfa 8 Gm Inhaler) 2 puffs INH QID PRN PRN Reason: Shortness Of Breath Or Wheezin Stop: 04/11/23 00:14 Amlodipine Besylate (Amlodipine Besylate 5 Mg Tab) 2.5 mg PO [facility] Stop: 04/11/23 08:59 Last Admin: 03/12/23 09:14 Dose: 2.5 mg Aspirin (Aspirin 325 Mg Ectab) 325 mg PO [facility] Stop: 04/11/23 08:59 Last Admin: 03/12/23 09:14 Dose: 325 mg Calcium/Vitamin D (Calcium 600mg + Vit D 400 Iu Tab) 1 tab PO QDL [facility] Stop: 04/11/23 11:29 Last Admin: 03/12/23 12:33 Dose: 1 tab Enoxaparin Sodium (Enoxaparin Inj 40 Mg/0.4 Ml Syr) 40 mg SQ [facility] Stop: 04/11/23 08:59 Last Admin: 03/12/23 09:13 Dose: 40 mg Famotidine (Famotidine 20 Mg Tab) 20 mg PO BID [facility] Stop: 04/11/23 08:59 Last Admin: 03/12/23 09:12 Dose: 20 mg Fluticasone Propionate (Fluticasone Propionate Na Spr 16 Gm Btl) 2 sprays NA [facility] Stop: 04/11/23 08:59 Last Admin: 03/12/23 09:12 Dose: 2 sprays Ceftriaxone Sodium 2,000 mg/ (Dextrose) 50 mls @ 100 mls/hr IV Q24H [facility]; Protocol Stop: 03/22/23 06:59 Last Infusion: 03/12/23 09:38 Dose: Infused Ipratropium [place] (Ipratropium [place] Nasal [place] 0.06% 15ml) 1 sprays MARINO BID JEANMARIE Stop: 04/11/23 08:59 Last Admin: 03/12/23 09:13 Dose: 1 sprays Meclizine HCl (Meclizine Hcl 25 Mg Tab) 25 mg PO HS PRN PRN Reason: dizzyiness Stop: 04/11/23 00:14 Montelukast Sodium (Montelukast Sodium 10 Mg Tablet) 10 mg PO HS JE[facility]IE Stop: 04/11/23 20:59 Multivitamins (Multivitamin Tab) 1 tab PO QDL [facility] Stop: 04/11/23 11:29 Last Admin: 03/12/23 12:33 Dose: 1 tab Pantoprazole Sodium (Pantoprazole 40 Mg Tab) 40 mg PO DAILYBB JEANMARIE Stop: 04/11/23 06:29 Last Admin: 03/12/23 06:35 Dose: 40 mg Polyethylene Glycol (Polyethylene (Miralax) 17 Gm Pack) 17 gm PO DAILY PRN PRN Reason: Constipation Stop: 04/11/23 00:14 Sodium Chloride (Sodium Chloride 1 Gm Tablet) 1 gm PO BID JEANMARIE Stop: 04/11/23 08:59 Last Admin: 03/12/23 09:13 Dose: 1 gm Trolamine Salicylate (Trolamine Salicylate 10% Crm 255 Appln/85 Gm Tube) 1 appln EXT BID PRN PRN Reason: Pain Stop: 04/11/23 00:14 Vitamin E (Tocopheryl, Dl-Alpha 400 Units 180 Mg Cap) 400 units PO QDL [facility] Stop: 04/11/23 11:29 Last Admin: 03/12/23 12:33 Dose: 400 units
[2023-03-12] MEDS: MONTELUKAST SODIUM 10 MG TABLET PO SCH (20:07)
[2023-03-13 04:28] LABS: Basophils # (auto) 0.05 K/uL (0.00-0.20); Basophils % (auto) 0.4 %; Eosinophils # (auto) 0.06 K/uL (0.00-0.50); Eosinophils % (auto) 0.5 %; Hematocrit (blood only) 39.3 % (37.0-47.0); Hemoglobin 13.1 g/dl (12.0-16.0); Immature Granulocytes # (auto) 0.09 K/uL (0.01-0.20); Immature Granulocytes % (auto) 0.7 %; Lymphocytes # (auto) 1.53 K/uL (1.20-3.40); Lymphocytes % (auto) 11.8 %; Mean Corpuscular Hemoglobin 27.8 pg (25.0-34.0); Mean Corpuscular Hgb Conc 33.3 g/dL (32.0-36.0); Mean Corpuscular Volume 83.4 fL (80.0-100.0); Mean Platelet Volume 11.2 fL (9.4-12.4); Monocytes # (auto) 1.76 K/uL (0.11-0.59); Monocytes % (auto) 13.6 %; Neutrophils # (auto) 9.45 K/uL (1.40-6.50); Platelet Count 318 K/uL (130-400); RDW Coefficient of Variation 13.1 % (11.5-14.5); RDW Standard Deviation 39.8 fL (36.4-46.3); Red Blood Count 4.71 M/uL (4.20-5.40); White Blood Count 12.94 K/ul (4.8-10.8)
[2023-03-13 04:38] LABS: BUN Creatinine Ratio 16.7 (10-20); C Reactive Protein 14.81 mg/dl (0-0.5); Calcium 9.2 mg/dl (8.6-10.3); Creatinine Clr Calc Pharmacy 93.5 ml/min; Est GFR (African American) 106.2 ml/min; Est GFR (Non-African American) 91.7 ml/min; Magnesium 1.9 mg/dl (1.7-2.4); Phosphorus 2.9 mg/dl (2.5-4.9); Potassium 4.3 mmol/L (3.5-5.1)
[2023-03-13] MEDS: PANTOprazole 40 MG TAB PO SCH (06:16)
[2023-03-13] MEDS: cefTRIAXone SODIUM 2,000 MG in DEXTROSE 5 % MINI-B 50 ML IV SCH (06:57)
[2023-03-13] MEDS: ASPIRIN 325 MG ECTAB PO SCH (08:18)
[2023-03-13] MEDS: SODIUM CHLORIDE 1 GM TABLET PO SCH ×2 (08:18→20:54)
[2023-03-13] MEDS: ENOXAPARIN INJ 40 MG/0.4 ML SYR SQ SCH (08:18)
[2023-03-13] MEDS: amLODIPine BESYLATE 5 MG TAB PO SCH (08:18)
[2023-03-13] MEDS: FAMOTIDINE 20 MG TAB PO SCH ×2 (08:18→20:54)
[2023-03-13] MEDS: IPRATROPIUM BROMIDE NASAL SPRAY 0.06% 15ML NAE SCH ×2 (08:19→22:48)
[2023-03-13] MEDS: FLUTICASONE PROPIONATE NA SPR 16 GM BTL SCH (08:19)
[2023-03-13] MEDS: TOCOPHERYL, DL-ALPHA 400 UNITS 180 MG CAP PO SCH (11:10)
[2023-03-13] MEDS: MULTIVITAMIN TAB PO SCH (11:10)
[2023-03-13] MEDS: CALCIUM 600MG + VIT D 400 IU TAB PO SCH (11:10)
--- NOTE | 2023-03-13 13:52 | Hospitalist Progress Note ---
Date of Service March 13, 2023 Assessment & Plan (1) Weakness: Plan: 77-year-old female with past medical history significant for mild intermittent asthma, hypertension, irritable bowel syndrome, GERD, chronic interstitial cystitis without hematuria, generalized osteoarthritis, memory disturbance, factor V Leiden mutation, history of CVA, hyponatremia, history of DVT comes because of weakness. Patient was recently diagnosed COVID on March 01 and got admitted and was discharged on March 03. Patient states after going home she was fine for few days. Then she was feeling very weak and tired. Not able to ambulate much. Legs are sore. This reason she came back today. Thinks she might have low-grade fever. A week ago she had some chest discomfort that got resolved. Appetite is okay. No headache. Vision is okay. No runny nose or sore throat. No cough. No shortness of breath. No abdominal pain. Normal bowel and bladder movements. Generalized weakness likely secondary to COVID-19 virus infection COVID test has been positive on 03/01/2023 and again 03/11/2023 during this admission Reassured and will get PT OT evaluation Clinically a little better May need placement Remains very weak and lethargic, seems she has not had the energy to even feed herself Reassured that things will get better and advised to eat and drink more COVID 19 virus infection Remains asymptomatic otherwise COVID precautions Possible UTI Rocephin Follow culture-showing pinpoint growth so far Will continue Rocephin for now Blood cultures have have been negative taken on 03/01/2023 Urine culture seems to be negative Will discontinue antibiotic tomorrow History of asthma Continue home inhalers No acute symptoms Hypertension On amlodipine We will monitor GERD Omeprazole History of hyponatremia On salt tablets We will follow labs History of factor V Leyden deficiency History of DVT Seems current not on anticoagulation Needs follow-up DVT prophylaxis Lovenox Disposition Medical floor Full code Admission and Anticipated Discharge Date Admission Date: March 11, 2023 Subjective 03/12/2023 The patient was seen and examined in emergency room She was admitted with extreme weakness and tiredness and was diagnosed to have COVID-19 virus positive Has been feeling a little better Complains of swelling of the right hand at the site of infusion line 03/13/2023 The patient was seen and examined in emergency room She remains very weak and lethargic Denies any shortness of breath, cough or any other symptom Review of Systems Review of Systems: All systems reviewed and are unremarkable except as noted below Respiratory: No respiratory symptoms Musculoskeletal: No acute arthritis Neurologic: Very weak and lethargy Physical Exam Physical Exam: Lying in bed without any acute distress Constitutional: well developed, well nourished, + ill appearing and + obese Eyes: PERRL, conjunctivae normal, anicteric sclerae ENMT: external ear and nose normal, oropharynx normal Neck: trachea midline, no thyromegaly Respiratory: no respiratory distress Auscultation: + diminished lung sounds and + crackles (Minimal crackles at the bases) Cardiovascular: Rate/Rhythm: regular rate and regular rhythm; not tachycardic Heart Sounds: normal S1 and normal S2; no murmur Extremities: + edema (Trace edema bilaterally) Gastrointestinal (Abdomen): Inspection/Auscultation: + abdomen distended and normal bowel sounds Percussion/Palpation: abdomen soft; abdomen nontender Neurologic: normal touch/pain/proprioception and moves all extremities; no focal motor deficits Lymphatic: no cervical or axillary lymphadenopathy Results & Data Results & Data Vital Signs (Past 12 Hours) Vital Signs Pulse Resp BP Pulse Ox O2 Del Method 03/13/23 12:00 95 H 21 96 03/13/23 11:00 97 H 22 93 03/13/23 10:00 97 H 20 97 03/13/23 08:14 101 H 22 147/78 H 99 Room Air 03/13/23 07:42 99 H 03/13/23 05:00 97 H 16 168/87 H 93 Room Air 03/13/23 04:00 96 H 22 03/13/23 03:00 94 H 21 03/13/23 02:02 96 H 22 167/84 H Laboratory Results Short CBC 03/13/23 Range/Units 04:00 WBC 12.94 H (4.8-10.8) K/ul Hgb 13.1 (12.0-16.0) g/dl Hct 39.3 (37.0-47.0) % Plt Count 318 (130-400) K/uL BMP 03/13/23 04:00 Sodium 133 L Potassium 4.3 Chloride 102 Carbon Dioxide 24 BUN 9 Creatinine 0.54 L Glucose 120 H Calcium 9.2 Medications Administered Current Inpatient Medications Acetaminophen (Acetaminophen 325 Mg Tab) 650 mg PO Q4H PRN PRN Reason: pain/fever Stop: 04/11/23 00:14 Last Admin: 03/12/23 06:43 Dose: 650 mg Albuterol (Albuterol Hfa 8 Gm Inhaler) 2 puffs INH QID PRN PRN Reason: Shortness Of Breath Or Wheezin Stop: 04/11/23 00:14 Amlodipine Besylate (Amlodipine Besylate 5 Mg Tab) [facility] Stop: 04/11/23 08:59 Last Admin: 03/13/23 08:18 Dose: 2.5 mg Aspirin (Aspirin 325 Mg Ectab) 325 mg PO [facility] Stop: 04/11/23 08:59 Last Admin: 03/13/23 08:18 Dose: 325 mg Calcium/Vitamin D (Calcium 600mg + Vit D 400 Iu Tab) 1 tab PO QDL [facility] Stop: 04/11/23 11:29 Last Admin: 03/13/23 11:10 Dose: 1 tab Enoxaparin Sodium (Enoxaparin Inj 40 Mg/0.4 Ml Syr) 40 mg SQ [facility] Stop: 04/11/23 08:59 Last Admin: 03/13/23 08:18 Dose: 40 mg Famotidine (Famotidine 20 Mg Tab) 20 mg PO BID [facility] Stop: 04/11/23 08:59 Last Admin: 03/13/23 08:18 Dose: 20 mg Fluticasone Propionate (Fluticasone Propionate Na Spr 16 Gm Btl) 2 sprays [facility] Stop: 04/11/23 08:59 Last Admin: 03/13/23 08:19 Dose: 2 sprays Ceftriaxone Sodium 2,000 mg/ (Dextrose) 50 mls @ 100 mls/hr IV Q24H [facility]; Protocol Stop: 03/22/23 06:59 Last Infusion: 03/13/23 07:44 Dose: Infused Ipratropium [place] (Ipratropium [place] Nasal [place] 0.06% 15ml) 1 sprays MARINO BID [facility] Stop: 04/11/23 08:59 Last Admin: 03/13/23 08:19 Dose: 1 sprays Meclizine HCl (Meclizine Hcl 25 Mg Tab) 25 mg PO HS PRN PRN Reason: dizzyiness Stop: 04/11/23 00:14 Montelukast Sodium (Montelukast Sodium 10 Mg Tablet) 10 mg PO HS [facility] Stop: 04/11/23 20:59 Last Admin: 03/12/23 20:07 Dose: 10 mg Multivitamins (Multivitamin Tab) 1 tab PO QDL [facility] Stop: 04/11/23 11:29 Last Admin: 03/13/23 11:10 Dose: 1 tab Pantoprazole Sodium (Pantoprazole 40 Mg Tab) 40 mg PO DAILYBB [facility] Stop: 04/11/23 06:29 Last Admin: 03/13/23 06:16 Dose: 40 mg Polyethylene Glycol (Polyethylene (Miralax) 17 Gm Pack) 17 gm PO DAILY PRN PRN Reason: Constipation Stop: 04/11/23 00:14 Sodium Chloride (Sodium Chloride 1 Gm Tablet) 1 gm PO BID [facility] Stop: 04/11/23 08:59 Last Admin: 03/13/23 08:18 Dose: 1 gm Trolamine Salicylate (Trolamine Salicylate 10% Crm 255 Appln/85 Gm Tube) 1 appln EXT BID PRN PRN Reason: Pain Stop: 04/11/23 00:14 Vitamin E (Tocopheryl, Dl-Alpha 400 Units 180 Mg Cap) 400 units PO QDL [facility] Stop: 04/11/23 11:29 Last Admin: 03/13/23 11:10 Dose: 400 units
[2023-03-13] MEDS: MONTELUKAST SODIUM 10 MG TABLET PO SCH (20:54)
--- NOTE | 2023-03-13 21:23 | Electrocardiogram Report ---
Test Reason : Blood Pressure : / mmHG Vent. Rate : 093 BPM Atrial Rate : 093 BPM P-R Int : 156 ms QRS Dur : 070 ms QT Int : 348 ms P-R-T Axes : 067 008 056 degrees QTc Int : 432 ms Normal sinus rhythm Normal ECG When compared with ECG of 01-MAR-2023 14:37, No significant change was found Confirmed by Bereket Diggs ([id number]) on 03/13/2023 9:23:13 PM Referred By: REFERRED SELF Confirmed By:Bereket Diggs
[2023-03-14 04:54] LABS: Potassium 4.1 mmol/L (3.5-5.1)
[2023-03-14 05:00] LABS: BUN Creatinine Ratio 23.4 (10-20); Creatinine Clr Calc Pharmacy 78.9 ml/min; Est GFR (African American) 100.5 ml/min; Est GFR (Non-African American) 86.7 ml/min
[2023-03-14 05:50] LABS: Basophils # (auto) 0.05 K/uL (0.00-0.20); Basophils % (auto) 0.3 %; Eosinophils # (auto) 0.01 K/uL (0.00-0.50); Eosinophils % (auto) 0.1 %; Hematocrit (blood only) 45.7 % (37.0-47.0); Hemoglobin 14.9 g/dl (12.0-16.0); Immature Granulocytes # (auto) 0.13 K/uL (0.01-0.20); Immature Granulocytes % (auto) 0.8 %; Lymphocytes # (auto) 1.26 K/uL (1.20-3.40); Lymphocytes % (auto) 7.7 %; Mean Corpuscular Hemoglobin 27.6 pg (25.0-34.0); Mean Corpuscular Hgb Conc 32.6 g/dL (32.0-36.0); Mean Corpuscular Volume 84.8 fL (80.0-100.0); Mean Platelet Volume 11.2 fL (9.4-12.4); Monocytes % (auto) 14.7 %; Neutrophils % (auto) 76.4 %; Platelet Count 259 K/uL (130-400); Platelet Estimate Normal (Normal); RDW Coefficient of Variation 13.7 % (11.5-14.5); RDW Standard Deviation 42.2 fL (36.4-46.3); Red Blood Count 5.39 M/uL (4.20-5.40); White Blood Count 16.35 K/ul (4.8-10.8)
[2023-03-14] MEDS: cefTRIAXone SODIUM 2,000 MG in DEXTROSE 5 % MINI-B 50 ML IV SCH (06:08)
[2023-03-14] MEDS: PANTOprazole 40 MG TAB PO SCH (06:08)
[2023-03-14] MEDS: SODIUM CHLORIDE 1 GM TABLET PO SCH ×2 (11:14→20:20)
[2023-03-14] MEDS: amLODIPine BESYLATE 5 MG TAB PO SCH (11:15)
[2023-03-14] MEDS: FAMOTIDINE 20 MG TAB PO SCH ×2 (11:15→20:20)
[2023-03-14] MEDS: ASPIRIN 325 MG ECTAB PO SCH (11:19)
[2023-03-14] MEDS: FLUTICASONE PROPIONATE NA SPR 16 GM BTL SCH (11:20)
[2023-03-14] MEDS: ENOXAPARIN INJ 40 MG/0.4 ML SYR SQ SCH (11:21)
[2023-03-14] MEDS: IPRATROPIUM BROMIDE NASAL SPRAY 0.06% 15ML NAE SCH ×2 (11:27→21:16)
[2023-03-14] MEDS ORDERED: ACETAMINOPHEN 650 MG SUPP PR ONE (12:12)
[2023-03-14] MEDS: MULTIVITAMIN TAB PO SCH (12:36)
[2023-03-14] MEDS: D5W AND 1/2NSS 1,000 ML IV SCH (13:59)
[2023-03-14] MEDS: TOCOPHERYL, DL-ALPHA 400 UNITS 180 MG CAP PO SCH (13:59)
[2023-03-14] MEDS: CALCIUM 600MG + VIT D 400 IU TAB PO SCH (13:59)
--- NOTE | 2023-03-14 17:19 | Hospitalist Progress Note ---
Date of Service March 14, 2023 Assessment & Plan (1) Weakness: Plan: 77-year-old female with past medical history significant for mild intermittent asthma, hypertension, irritable bowel syndrome, GERD, chronic interstitial cystitis without hematuria, generalized osteoarthritis, memory disturbance, factor V Leiden mutation, history of CVA, hyponatremia, history of DVT comes because of weakness. Patient was recently diagnosed COVID on March 01 and got admitted and was discharged on March 03. Patient states after going home she was fine for few days. Then she was feeling very weak and tired. Not able to ambulate much. Legs are sore. This reason she came back today. Thinks she might have low-grade fever. A week ago she had some chest discomfort that got resolved. Appetite is okay. No headache. Vision is okay. No runny nose or sore throat. No cough. No shortness of breath. No abdominal pain. Normal bowel and bladder movements. Generalized weakness likely secondary to COVID-19 virus infection COVID test has been positive on 03/01/2023 and again 03/11/2023 during this admission Reassured and will get PT OT evaluation Clinically a little better May need placement Remains very weak and lethargic, seems she has not had the energy to even feed herself Reassured that things will get better and advised to eat and drink more Remains hemodynamically stable but has not been moving her limbs, taking her food or medications due to weakness and tiredness Will try small doses of intravenous dextrose with half-normal saline for rehydration Will ask for PT and OT evaluation COVID 19 virus infection Remains asymptomatic otherwise COVID precautions Does not require any more COVID precautions she is about 14 days out of initial COVID infection Possible UTI Rocephin Follow culture-showing pinpoint growth so far Will continue Rocephin for now Blood cultures have have been negative taken on 03/01/2023 Urine culture seems to be negative Will discontinue antibiotic tomorrow History of asthma Continue home inhalers No acute symptoms Hypertension On amlodipine We will monitor GERD Omeprazole History of hyponatremia On salt tablets We will follow labs History of factor V Leyden deficiency History of DVT Seems current not on anticoagulation Needs follow-up DVT prophylaxis Lovenox Disposition Medical floor Full code Admission and Anticipated Discharge Date Admission Date: March 11, 2023 Subjective 03/12/2023 The patient was seen and examined in emergency room She was admitted with extreme weakness and tiredness and was diagnosed to have COVID-19 virus positive Has been feeling a little better Complains of swelling of the right hand at the site of infusion line 03/13/2023 The patient was seen and examined in emergency room She remains very weak and lethargic Denies any shortness of breath, cough or any other symptom 03/14/2023 The patient was seen and examined in emergency room She remains very weak and lethargic She even does not want to eat or drink and not moving her extremities at all Remains hemodynamically stable Review of Systems Review of Systems: All systems reviewed and are unremarkable except as noted below Respiratory: No respiratory symptoms Musculoskeletal: No acute arthritis Neurologic: Very weak and lethargy Physical Exam Physical Exam: Lying in bed without any acute distress Constitutional: well developed, well nourished, + ill appearing and + obese Eyes: PERRL, conjunctivae normal, anicteric sclerae ENMT: external ear and nose normal, oropharynx normal Neck: trachea midline, no thyromegaly Respiratory: no respiratory distress Auscultation: + diminished lung sounds and + crackles (Minimal crackles at the bases) Cardiovascular: Rate/Rhythm: regular rate and regular rhythm; not tachycardic Heart Sounds: normal S1 and normal S2; no murmur Extremities: + edema (Trace edema bilaterally) Gastrointestinal (Abdomen): Inspection/Auscultation: + abdomen distended and normal bowel sounds Percussion/Palpation: abdomen soft; abdomen nontender Musculoskeletal: No acute arthritis involving any of the joint Neurologic: normal touch/pain/proprioception and moves all extremities; no focal motor deficits Lymphatic: no cervical or axillary lymphadenopathy Results & Data Results & Data Vital Signs (Past 12 Hours) Vital Signs Temp Pulse Pulse Resp BP Pulse Ox O2 Del Method 03/14/23 15:20 36.4 C L 92 H 14 103/66 99 Room Air 03/14/23 08:19 102 H Laboratory Results Short CBC 03/14/23 Range/Units 04:18 WBC 16.35 H (4.8-10.8) K/ul Hgb 14.9 (12.0-16.0) g/dl Hct 45.7 (37.0-47.0) % Plt Count 259 (130-400) K/uL BMP 03/14/23 04:18 Sodium 134 L Potassium 4.1 Chloride 102 Carbon Dioxide 19 L BUN 15 Creatinine 0.64 Glucose 105 H Calcium 9.0 Medications Administered Current Inpatient Medications Acetaminophen (Acetaminophen 325 Mg Tab) 650 mg PO Q4H PRN PRN Reason: pain/fever Stop: 04/11/23 00:14 Last Admin: 03/12/23 06:43 Dose: 650 mg Albuterol (Albuterol Hfa 8 Gm Inhaler) 2 puffs INH QID PRN PRN Reason: Shortness Of Breath Or Wheezin Stop: 04/11/23 00:14 Amlodipine Besylate (Amlodipine Besylate 5 Mg Tab) 2.5 mg PO [facility] Stop: 04/11/23 08:59 Last Admin: 03/14/23 11:15 Dose: 2.5 mg Aspirin (Aspirin 325 Mg Ectab) 325 mg PO [facility] Stop: 04/11/23 08:59 Last Admin: 03/14/23 11:19 Dose: 325 mg Calcium/Vitamin D (Calcium 600mg + Vit D 400 Iu Tab) 1 tab PO QDL [facility] Stop: 04/11/23 11:29 Last Admin: 03/14/23 13:59 Dose: Not Given Enoxaparin Sodium (Enoxaparin Inj 40 Mg/0.4 Ml Syr) 40 mg SQ [facility] Stop: 04/11/23 08:59 Last Admin: 03/14/23 11:21 Dose: 40 mg Famotidine (Famotidine 20 Mg Tab) 20 mg PO BID [facility] Stop: 04/11/23 08:59 Last Admin: 03/14/23 11:15 Dose: 20 mg Fluticasone Propionate (Fluticasone Propionate Na Spr 16 Gm Btl) 2 sprays NA [facility] Stop: 04/11/23 08:59 Last Admin: 03/14/23 11:20 Dose: 2 sprays Ceftriaxone Sodium 2,000 mg/ (Dextrose) 50 mls @ 100 mls/hr IV Q24H [facility]; Protocol Stop: 03/22/23 06:59 Last Infusion: 03/14/23 06:44 Dose: Infused Dextrose/Sodium Chloride (D5w And 1/2nss) 1,000 mls @ 80 mls/hr IV .[id number] [facility] Stop: 03/16/23 02:59 Last Admin: 03/14/23 13:59 Dose: 80 mls/hr Ipratropium [place] (Ipratropium [place] Nasal [place] 0.06% 15ml) 1 sprays MRAINO BID [facility] Stop: 04/11/23 08:59 Last Admin: 03/14/23 11:27 Dose: Not Given Meclizine HCl (Meclizine Hcl 25 Mg Tab) 25 mg PO HS PRN PRN Reason: dizzyiness Stop: 04/11/23 00:14 Montelukast Sodium (Montelukast Sodium 10 Mg Tablet) 10 mg PO HS [facility] Stop: 04/11/23 20:59 Last Admin: 03/13/23 20:54 Dose: 10 mg Multivitamins (Multivitamin Tab) 1 tab PO QDL [facility] Stop: 04/11/23 11:29 Last Admin: 03/14/23 12:36 Dose: 1 tab Pantoprazole Sodium (Pantoprazole 40 Mg Tab) 40 mg PO DAILYBB [facility] Stop: 04/11/23 06:29 Last Admin: 03/14/23 06:08 Dose: 40 mg Polyethylene Glycol (Polyethylene (Miralax) 17 Gm Pack) 17 gm PO DAILY PRN PRN Reason: Constipation Stop: 04/11/23 00:14 Sodium Chloride (Sodium Chloride 1 Gm Tablet) 1 gm PO BID [facility] Stop: 04/11/23 08:59 Last Admin: 03/14/23 11:14 Dose: 1 gm Trolamine Salicylate (Trolamine Salicylate 10% Crm 255 Appln/85 Gm Tube) 1 appln EXT BID PRN PRN Reason: Pain Stop: 04/11/23 00:14 Vitamin E (Tocopheryl, Dl-Alpha 400 Units 180 Mg Cap) 400 units PO QDL [facility] Stop: 04/11/23 11:29 Last Admin: 03/14/23 13:59 Dose: Not Given
[2023-03-14] MEDS: ACETAMINOPHEN 1,000 MG/100 ML VIAL IV PRN (20:15)
[2023-03-14] MEDS: MONTELUKAST SODIUM 10 MG TABLET PO SCH (20:20)
[2023-03-14 21:56] LABS: Adenovirus PCR Not Detected (NotDetected); Bordetella parapertussis PCR Not Detected (NotDetected); Bordetella pertussis PCR Not Detected (NotDetected); Chlamydia pneumoniae PCR Not Detected (NotDetected); Coronavirus 229E PCR Not Detected (NotDetected); Coronavirus HKU1 PCR Not Detected (NotDetected); Coronavirus NL63 PCR Not Detected (NotDetected); Coronavirus OC43PCR Not Detected (NotDetected); Human Metapneumovirus PCR Not Detected (NotDetected); Influenza A PCR Not Detected (NotDetected); Influenza B PCR Not Detected (NotDetected); Mycoplasma pneumoniae PCR Not Detected (NotDetected); Parainfluenza Virus 1 PCR Not Detected (NotDetected); Parainfluenza Virus 2 PCR Not Detected (NotDetected); Parainfluenza Virus 3 PCR Not Detected (NotDetected); Parainfluenza Virus 4 PCR Not Detected (NotDetected); Respiratory Syncytial VirusPCR Not Detected (NotDetected); Rhinovirus/Enterovirus PCR Not Detected (NotDetected)
[2023-03-14 22:01] LABS: Coronavirus CoV-2 (COVID19)PCR DETECTED (NotDetected)
[2023-03-15] MEDS: D5W AND 1/2NSS 1,000 ML IV SCH ×2 (02:51→15:57)
[2023-03-15] MEDS: cefTRIAXone SODIUM 2,000 MG in DEXTROSE 5 % MINI-B 50 ML IV SCH (06:19)
[2023-03-15] MEDS: PANTOprazole 40 MG TAB PO SCH (06:20)
[2023-03-15] MEDS: ASPIRIN 325 MG ECTAB PO SCH (08:34)
[2023-03-15] MEDS: FAMOTIDINE 20 MG TAB PO SCH ×2 (08:34→21:17)
[2023-03-15] MEDS: amLODIPine BESYLATE 5 MG TAB PO SCH (08:35)
[2023-03-15] MEDS: SODIUM CHLORIDE 1 GM TABLET PO SCH ×2 (08:35→21:17)
[2023-03-15] MEDS: IPRATROPIUM BROMIDE NASAL SPRAY 0.06% 15ML NAE SCH ×2 (08:36→21:17)
[2023-03-15] MEDS: FLUTICASONE PROPIONATE NA SPR 16 GM BTL SCH (08:36)
[2023-03-15] MEDS: ENOXAPARIN INJ 40 MG/0.4 ML SYR SQ SCH (08:36)
[2023-03-15] MEDS: CALCIUM 600MG + VIT D 400 IU TAB PO SCH (12:01)
[2023-03-15] MEDS: MULTIVITAMIN TAB PO SCH (12:01)
[2023-03-15] MEDS: TOCOPHERYL, DL-ALPHA 400 UNITS 180 MG CAP PO SCH (12:31)
--- NOTE | 2023-03-15 13:55 | Hospitalist Progress Note ---
Date of Service March 15, 2023 Assessment & Plan (1) Weakness: Plan: 77-year-old female with past medical history significant for mild intermittent asthma, hypertension, irritable bowel syndrome, GERD, chronic interstitial cystitis without hematuria, generalized osteoarthritis, memory disturbance, factor V Leiden mutation, history of CVA, hyponatremia, history of DVT comes because of weakness. Patient was recently diagnosed COVID on March 01 and got admitted and was discharged on March 03. Patient states after going home she was fine for few days. Then she was feeling very weak and tired. Not able to ambulate much. Legs are sore. This reason she came back today. Thinks she might have low-grade fever. A week ago she had some chest discomfort that got resolved. Appetite is okay. No headache. Vision is okay. No runny nose or sore throat. No cough. No shortness of breath. No abdominal pain. Normal bowel and bladder movements. Generalized weakness likely secondary to COVID-19 virus infection COVID test has been positive on 03/01/2023 and again 03/11/2023 during this admission Reassured and will get PT OT evaluation Clinically a little better per attending Dr. Kellogg Remains very weak and lethargic, seems she has not had the energy to even feed herself Reassured that things will get better and advised to eat and drink more Remains hemodynamically stable but has not been moving her limbs, taking her food or medications due to weakness and tiredness Will try small doses of intravenous dextrose with half-normal saline for rehydration Will ask for PT and OT evaluation COVID 19 virus infection Remains asymptomatic otherwise COVID precautions Does not require any more COVID precautions she is about 14 days out of initial COVID infection Possible UTI Rocephin Follow culture-showing pinpoint growth so far Will continue Rocephin for now Blood cultures have have been negative taken on 03/01/2023 Urine culture seems to be negative D/C Antibiotic Sinus tachycardia ekg sinus tachy, no st t wave changes one time fever last evening 38.4 will obtain cbc, cmp, mag, tsh now eval eval for evolving process limited historian, continue fluids History of asthma Continue home inhalers No acute symptoms Hypertension On amlodipine bp stable GERD Omeprazole History of hyponatremia On salt tablets We will follow labs History of factor V Leyden deficiency History of DVT Seems current not on anticoagulation Needs follow-up DVT prophylaxis Lovenox Disposition Medical floor, not yet medically stable, possibly in next 1-2 days, saw PT/OT today, max assist Full code Obtain CBC, CMP, mag, tsh, nh3 in a.m. Pt was seen and examined in collaboration with Dr. Kellogg, please see addendum A total of 50 was spent coordinating, documenting, and providing care for this patient excluding time spent in the performance of separately billed services. This included personally viewing all current laboratories and imaging studies, medication reconciliation, outpatient chart review, and discussion with specialists. Admission and Anticipated Discharge Date Admission Date: March 11, 2023 Supervising Physician Co-Signing Physician Notes Attending addendum: The patient was seen and examined in medical floor She has been much better in the morning and did not communicate well with me and was moving all extremities and squeeze my fingers on asking This evening she became very lethargic and not been communicating On examination Has been having some tachycardia She has been feverish Afebrile now Chest-decreased breath sound bilaterally Heart-S1-S2, regular Abdomen-benign Labs with stat CBC and PRP and LFTs reviewed She has COVID-19 virus positivity which is causing profound weakness Will try 1 dose of dexamethasone 6 mg IV now Monitor Agree with assessment and plan as outlined above by iDnora Kellogg Subjective Patient was seen and examined in room 324. Follow-up generalized weakness. ROS limited due to patient's cognition. She continues to remain weak. Nursing reports head tilted to the left. She ate 25% of meal but had to be fed. PT had difficulty working with her due to weakness. Review of Systems Review of Systems: All systems reviewed & are unremarkable except as noted in HPI & below Physical Exam Physical Exam: Gen: chronically ill appearing, NAD, alert, oriented to self only, sitting up in bed, responds to verbal stimuli but falls asleep easily HEENT: Normocephalic, atraumatic, head tilted to left, conjunctivae moist, sclerae anicteric, mucous membranes moist. Lung: diminished breath sounds b/l , poor insp effort, no wheezes/rales/rhonchi Heart: Regular rate, regular rhythm, no murmurs, rubs, or gallops Abdomen: Soft, NT, ND +BS x 4 Extremities: No edema Skin: Warm, no rash, negative turgor. MSK: unable to assess as pt doesn't follow instructions Results & Data Results & Data Vital Signs (Past 12 Hours) Vital Signs Temp Pulse Resp BP Pulse Ox O2 Del Method O2 Flow Rate 03/15/23 07:20 Nasal Cannula 2 03/15/23 07:04 37.4 C 97 H 16 139/80 99 Nasal Cannula 2 Medications Administered Current Inpatient Medications Albuterol (Albuterol Hfa 8 Gm Inhaler) 2 puffs INH QID PRN PRN Reason: Shortness Of Breath Or Wheezin Stop: 04/11/23 00:14 Amlodipine Besylate (Amlodipine Besylate 5 Mg Tab) 2.5 mg PO [facility] Stop: 04/11/23 08:59 Last Admin: 03/15/23 08:35 Dose: 2.5 mg Aspirin (Aspirin 325 Mg Ectab) 325 mg PO [facility] Stop: 04/11/23 08:59 Last Admin: 03/15/23 08:34 Dose: 325 mg Calcium/Vitamin D (Calcium 600mg + Vit D 400 Iu Tab) 1 tab PO QDL [facility] Stop: 04/11/23 11:29 Last Admin: 03/15/23 12:01 Dose: 1 tab Enoxaparin Sodium (Enoxaparin Inj 40 Mg/0.4 Ml Syr) 40 mg SQ [facility] Stop: 04/11/23 08:59 Last Admin: 03/15/23 08:36 Dose: 40 mg Famotidine (Famotidine 20 Mg Tab) 20 mg PO BID [facility] Stop: 04/11/23 08:59 Last Admin: 03/15/23 08:34 Dose: 20 mg Fluticasone Propionate (Fluticasone Propionate Na Spr 16 Gm Btl) 2 sprays NA QAM [facility] Stop: 04/11/23 08:59 Last Admin: 03/15/23 08:36 Dose: 2 sprays Ceftriaxone Sodium 2,000 mg/ (Dextrose) 50 mls @ 100 mls/hr IV Q24H [facility]; Protocol Stop: 03/22/23 06:59 Last Infusion: 03/15/23 06:59 Dose: Infused Dextrose/Sodium Chloride (D5w And 1/2nss) 1,000 mls @ 80 mls/hr IV .[id number] [facility] Stop: 03/16/23 02:59 Last Admin: 03/15/23 02:51 Dose: 80 mls/hr Acetaminophen (Ofirmev) 1,000 mg in 100 mls @ 400 mls/hr IV Q8H PRN PRN Reason: Pain Stop: 03/17/23 18:31 Last Infusion: 03/14/23 20:30 Dose: Infused Ipratropium [place] (Ipratropium [place] Nasal [place] 0.06% 15ml) 1 sprays MARINO BID [facility] Stop: 04/11/23 08:59 Last Admin: 03/15/23 08:36 Dose: 1 sprays Meclizine HCl (Meclizine Hcl 25 Mg Tab) 25 mg PO HS PRN PRN Reason: dizzyiness Stop: 04/11/23 00:14 Montelukast Sodium (Montelukast Sodium 10 Mg Tablet) 10 mg PO HS [facility] Stop: 04/11/23 20:59 Last Admin: 03/14/23 20:20 Dose: 10 mg Multivitamins (Multivitamin Tab) 1 tab PO QDL [facility] Stop: 04/11/23 11:29 Last Admin: 03/15/23 12:01 Dose: 1 tab Pantoprazole Sodium (Pantoprazole 40 Mg Tab) 40 mg PO DAILYBB [facility] Stop: 04/11/23 06:29 Last Admin: 03/15/23 06:20 Dose: 40 mg Polyethylene Glycol (Polyethylene (Miralax) 17 Gm Pack) 17 gm PO DAILY PRN PRN Reason: Constipation Stop: 04/11/23 00:14 Sodium Chloride (Sodium Chloride 1 Gm Tablet) 1 gm PO BID [facility] Stop: 04/11/23 08:59 Last Admin: 03/15/23 08:35 Dose: 1 gm Trolamine Salicylate (Trolamine Salicylate 10% Crm 255 Appln/85 Gm Tube) 1 appln EXT BID PRN PRN Reason: Pain Stop: 04/11/23 00:14 Vitamin E (Tocopheryl, Dl-Alpha 400 Units 180 Mg Cap) 400 units PO QDL [facility] Stop: 04/11/23 11:29 Last Admin: 03/15/23 12:31 Dose: Not Given
[2023-03-15 16:21] LABS: Basophils # (auto) 0.04 K/uL (0.00-0.20); Basophils % (auto) 0.2 %; Eosinophils # (auto) 0.01 K/uL (0.00-0.50); Eosinophils % (auto) 0.1 %; Hematocrit (blood only) 35.4 % (37.0-47.0); Hemoglobin 11.7 g/dl (12.0-16.0); Immature Granulocytes # (auto) 0.07 K/uL (0.01-0.20); Immature Granulocytes % (auto) 0.4 %; Lymphocytes # (auto) 0.99 K/uL (1.20-3.40); Lymphocytes % (auto) 6.1 %; Mean Corpuscular Hemoglobin 27.7 pg (25.0-34.0); Mean Corpuscular Hgb Conc 33.1 g/dL (32.0-36.0); Mean Corpuscular Volume 83.7 fL (80.0-100.0); Mean Platelet Volume 10.9 fL (9.4-12.4); Monocytes # (auto) 1.71 K/uL (0.11-0.59); Monocytes % (auto) 10.5 %; Neutrophils # (auto) 13.42 K/uL (1.40-6.50); Neutrophils % (auto) 82.7 %; Platelet Count 401 K/uL (130-400); RDW Coefficient of Variation 13.9 % (11.5-14.5); RDW Standard Deviation 42.5 fL (36.4-46.3); Red Blood Count 4.23 M/uL (4.20-5.40); White Blood Count 16.24 K/ul (4.8-10.8)
[2023-03-15 16:34] LABS: Albumin Globulin Ratio 0.9 (0.9-2); Albumin Level 3.2 gm/dl (3.4-5.0); Bilirubin,Total 0.4 mg/dl (0.2-1.0); Calcium 8.6 mg/dl (8.6-10.3); Creatinine Clr Calc Pharmacy 81.4 ml/min; Est GFR (African American) 101.5 ml/min; Est GFR (Non-African American) 87.6 ml/min; Globulin 3.4 gm/dl (2.5-4.0); Potassium 4.1 mmol/L (3.5-5.1); Total Protein 6.6 gm/dl (6.0-8.3)
--- NOTE | 2023-03-15 16:42 | Electrocardiogram Report ---
Test Reason : Blood Pressure : / mmHG Vent. Rate : 110 BPM Atrial Rate : 110 BPM P-R Int : 152 ms QRS Dur : 074 ms QT Int : 302 ms P-R-T Axes : 047 000 049 degrees QTc Int : 408 ms Sinus tachycardia Borderline ECG When compared with ECG of 11-MAR-2023 16:16, HR has increased by 17 bpm Otherwise no significant change Confirmed by Lj Esposito [id number] on 03/15/2023 4:41:58 PM Referred By: REFERRED SELF Confirmed By:Lj Esposito
[2023-03-15 16:48] LABS: Thyroid Stimulating Hormone 2.328 uIu/ml (0.300-4.500)
[2023-03-15] MEDS ORDERED: DEXAMETHASONE SOD INJ 4 MG/ML VIAL IV STA (17:13)
[2023-03-15] MEDS ORDERED: dexAMETHasone 6 MG in SYRINGE 0 ML IV STA (17:17)
[2023-03-15] MEDS: ACETAMINOPHEN 1,000 MG/100 ML VIAL IV PRN (19:51)
[2023-03-15] MEDS ORDERED: VANCOMYCIN CONSULT ACTIVE PRN (20:17)
[2023-03-15] MEDS ORDERED: VANCOMYCIN HCL 1,750 MG in SODIUM CHLORIDE 0.9% 500 ML IV ONE (21:00)
[2023-03-15] MEDS: CEFEPIME 2,000 MG in SYRINGE 0 ML IV SCH (21:11)
[2023-03-15] MEDS: MONTELUKAST SODIUM 10 MG TABLET PO SCH (21:17)
[2023-03-15] MEDS: DOXYCYCLINE HYCLATE 100 MG CAP PO SCH (21:23)
[2023-03-15 21:34] LABS: Base Excess ABG -0.3 mEq/L (-9-1.8); HCO3 ABG 22 mmol/L (19-24); PCO2 ABG 30 mmHg (35-46); PO2 ABG 72 mmHg (80-95); pH ABG 7.48 (7.35-7.45)
[2023-03-15 21:37] LABS: Allen Test Pos (Pos)
[2023-03-16] MEDS: CEFEPIME 2,000 MG in SYRINGE 0 ML IV SCH ×3 (04:58→20:55)
[2023-03-16] MEDS: PANTOprazole 40 MG TAB PO SCH (05:58)
[2023-03-16 07:14] LABS: Albumin Globulin Ratio 0.8 (0.9-2); BUN Creatinine Ratio 36.8 (10-20); Bilirubin,Total 0.5 mg/dl (0.2-1.0); Calcium 8.5 mg/dl (8.6-10.3); Creatinine Clr Calc Pharmacy 88.5 ml/min; Est GFR (African American) 104.4 ml/min; Globulin 3.8 gm/dl (2.5-4.0); Magnesium 2.1 mg/dl (1.7-2.4); Potassium 4.3 mmol/L (3.5-5.1); Total Protein 6.8 gm/dl (6.0-8.3)
[2023-03-16 07:29] LABS: Hematocrit (blood only) 34.4 % (37.0-47.0); Hemoglobin 11.3 g/dl (12.0-16.0); Mean Corpuscular Hgb Conc 32.8 g/dL (32.0-36.0); Mean Corpuscular Volume 85.1 fL (80.0-100.0); Mean Platelet Volume 11.1 fL (9.4-12.4); Platelet Count 343 K/uL (130-400); RDW Coefficient of Variation 13.6 % (11.5-14.5); RDW Standard Deviation 42.8 fL (36.4-46.3); Red Blood Count 4.04 M/uL (4.20-5.40); White Blood Count 13.31 K/ul (4.8-10.8)
[2023-03-16 07:30] LABS: Basophils # (auto) 0.02 K/uL (0.00-0.20); Basophils % (auto) 0.2 %; Eosinophils # (auto) 0.01 K/uL (0.00-0.50); Eosinophils % (auto) 0.1 %; Immature Granulocytes # (auto) 0.08 K/uL (0.01-0.20); Immature Granulocytes % (auto) 0.6 %; Lymphocytes # (auto) 0.78 K/uL (1.20-3.40); Lymphocytes % (auto) 5.9 %; Monocytes # (auto) 0.97 K/uL (0.11-0.59); Monocytes % (auto) 7.3 %; Neutrophils # (auto) 11.45 K/uL (1.40-6.50); Neutrophils % (auto) 85.9 %
[2023-03-16 07:37] LABS: Lyme Ab IgG w/WB Rflx Negative (Negative); Lyme Ab IgM w/WB Rflx Negative (Negative)
[2023-03-16] MEDS: VANCOMYCIN HCL 1,000 MG in SODIUM CHLORIDE 0.9% 250 ML IV SCH ×2 (08:18→20:58)
[2023-03-16] MEDS: IPRATROPIUM BROMIDE NASAL SPRAY 0.06% 15ML NAE SCH ×2 (08:19→20:58)
[2023-03-16] MEDS: FLUTICASONE PROPIONATE NA SPR 16 GM BTL SCH (08:19)
[2023-03-16] MEDS: ENOXAPARIN INJ 40 MG/0.4 ML SYR SQ SCH (08:20)
[2023-03-16] MEDS: DOXYCYCLINE HYCLATE 100 MG CAP PO SCH ×2 (08:20→20:58)
[2023-03-16] MEDS: ASPIRIN 325 MG ECTAB PO SCH (08:20)
[2023-03-16] MEDS: FAMOTIDINE 20 MG TAB PO SCH ×2 (08:21→20:57)
[2023-03-16] MEDS: amLODIPine BESYLATE 5 MG TAB PO SCH (08:21)
[2023-03-16] MEDS: SODIUM CHLORIDE 1 GM TABLET PO SCH ×2 (08:21→20:57)
--- NOTE | 2023-03-16 08:34 | XRay Report ---
SINGLE VIEW CHEST CLINICAL HISTORY: Fever FINDINGS: An AP, portable, upright chest radiograph is compared to study dated 03/11/2023 and correlate d with chest CT dated 03/01/2023. The cardiomediastinal silhouette is unremarkable. Chronic interstit ial thickening is similar to previous. There is bibasilar scarring/atelectasis. The lungs and pleural spaces are otherwise clear. No pneumothorax is seen. The skeletal structures are osteopenic. The bon y thorax is grossly intact. IMPRESSION: No active disease in the chest. ACT 112: Negative or not required by law. Electronically signed by: Deon Houston M.D. 03/16/2023 8:32 AM
[2023-03-16 10:30] LABS: Appearance Urine Cloudy (Clear); Bacteria Urine Automated Negative (Negative); Bilirubin Urine Negative (Negative); Blood Urine 1+ (Negative); Color Urine Yellow; Epithelial Cell Urine Auto >30 /lpf (0-5); Glucose Urine UA Negative (Negative); Ketones Urine Negative (Negative); Leukocyte Esterase Urine Negative (Negative); Nitrite Urine Negative (Negative); Protein Urine 1+ (Negative); Specific Gravity Urine 1.023 (1.000-1.030); Urobilinogen Urine Negative (Negative); pH Urine 5.5 (4.5-7.5)
[2023-03-16] MEDS: SODIUM CHLORIDE 0.9% 1,000 ML IV SCH ×2 (10:44→22:53)
--- NOTE | 2023-03-16 11:09 | Neurology Consultation ---
Date of Consultation March 16, 2023 Assessment & Plan (1) Weakness: Generalized weakness in a 77F with a pMH of asthma, prior DVT, HTN and spinal stenosis. On exam she has no focal weakness or numbness and there is no evidence of ascending paralysis. Low suspicion for stroke contributing to the weakness as her exam isn't focal. AIDP (GBS) is also unlikely since she is stronger in her ankle and feet than she is in her hips. Additionally cabrera sheppard varient is also unlikely since she isn't having double vision. My suspicion is that her symptoms are secondary to a generalized medical condition and baseline deconditioning Plan - no further neurologic work up - if she develops ascending weakness please reach back out Telehealth Consultation Telehealth Information Telehealth Information: I performed this visit using a real-time telehealth connection between my location and the patients location ([facility]). After connecting through interactive tele-video, patient was identified by name and date of and/or wristband check.Patient (or authorized healthcare malt liquors sales representative) was informed that this was a telemedicine visit and it was being conducted confidentially over secure lines. My office door was closed and no one else was present in the room with me.Patient (or authorized healthcare malt liquors sales representative) provided consent to proceed with the visit, expressed an understanding of privacy and security of the telemedicine visit, and gave permission to have a hospital malt liquors sales representative in the room in order to assist with the visit and to conduct portions of the visit, as needed. I informed the patient (or authorized healthcare malt liquors sales representative) that I reviewed their record and presented the opportunity for them to ask any questions regarding the visit today. The patient agreed to participate. History of Present Illness Reason for Consultation: progressive weakness Requesting Physician: Dr Rodriguez Attending Physician: Tramaine Rodriguez MD History of Present Illness on March 01 she was diagnosed with COVID and at that time she couldn't move and was brought to the ED. She was admitted for 3 days and she was doing ok at home but wasn't moving at her baseline. Then last Tuesday she started complaining of right leg and feet pain. At that time she started having some difficulty walking and needed help getting to the bathroom. Since her admission she has become weaker. Throughout all of this she has had a decreased appetite, very limited urine output and no BM. This has happened 5 times where she can't move at all and each time it is associated with COVID 19 injection Allergies Allergy/AdvReac Type Severity Reaction Status Date / Time indomethacin Allergy Intermediate "FEEL Verified 03/11/23 19:19 STRANGE AND OUT OF IT" adhesive Allergy Mild RASH WITH Verified 03/11/23 19:19 EXTENDED USE bacitracin Allergy Mild RASH Verified 03/11/23 19:19 latex Allergy Mild RASH WITH Verified 03/11/23 19:19 LONGER EXPOSURE neomycin Allergy Mild RASH Verified 03/11/23 19:19 polymyxin B Allergy Mild RASH Verified 03/11/23 19:19 Sulfa (Sulfonamide Allergy Mild RASH Verified 03/11/23 19:19 Antibiotics) Home Medications Medication Instructions Recorded Confirmed Type aspirin 325 mg tablet 325 mg PO QAM 05/23/18 03/11/23 History calcium carbonate 600 mg-vitamin 1 cap PO QDL 05/23/18 03/11/23 History D3 62.5 mcg (2,500 unit) capsule esomeprazole magnesium 40 mg 40 mg PO DAILYBB 05/23/18 03/11/23 History capsule,delayed release (Nexium) ipratropium bromide 21 mcg (0.03 2 sprays intranasal BID 05/23/18 03/11/23 History %) nasal spray montelukast 10 mg tablet 10 mg PO HS 05/23/18 03/11/23 History (Singulair) multivitamin 1 tab PO QDL 05/23/18 03/11/23 History vitamin E 268 mg (400 unit) capsule 400 unit PO QDL 01/26/19 03/11/23 History calcium carbonate 400 mg calcium 400 mg PO DIRECTED PRN Gi Upset 05/10/19 03/11/23 History (1,000 mg) chewable tablet (Tums Ultra) fluticasone propionate 50 2 spray intranasal QAM 07/29/20 03/11/23 History mcg/actuation nasal spray,suspension amlodipine 2.5 mg tablet 2.5 mg PO QAM #90 tabs 12/06/22 03/11/23 Rx acetaminophen 500 mg tablet 500 mg PO DIRECTED PRN Pain 03/01/23 03/11/23 History (Tylenol Extra Strength) albuterol sulfate 90 mcg/actuation 2 puff inhalation QID PRN 03/01/23 03/11/23 History aerosol inhaler (ProAir HFA) Shortness Of Breath Or Wheezing famotidine 20 mg tablet 20 mg PO BID 03/01/23 03/11/23 History meclizine 25 mg tablet 25 mg PO HS PRN dizzyness 03/01/23 03/11/23 History ondansetron 4 mg disintegrating 4 mg translingual Q8 PRN Nausea 03/01/23 03/11/23 History tablet trolamine salicylate 10 % topical 1 applic topical BID PRN Pain 03/01/23 03/11/23 History cream (Aspercreme) sodium chloride 1,000 mg soluble 1,000 mg PO BID 03/11/23 03/11/23 History tablet Patient History Medical History Asthma pt reports rare use of PRN inh Hyponatremia following with Dr. Tsang Diarrhea Transient ischemic attack (TIA) 02/08/2012 (NO CURRENT PROBLEMS) Hyperlipidemia Chronic pain of left knee Osteoarthritis History of colitis Factor V Leiden Spinal stenosis DVT (deep venous thrombosis) LEFT LEG (WAS TAKING WARFARIN 2011) GERD (gastroesophageal reflux disease) HTN (hypertension) Surgical History History of bilateral tubal ligation History of esophagogastroduodenoscopy (EGD) History of colonoscopy History of tooth extraction History of cataract surgery RT/LEFT S/P wrist surgery LEFT History of surgery on arm RT ARM Family History Mother Family history of diabetes mellitus Aunt Family hx of colon cancer Other No family history of adverse response to anesthesia Social History Smoking Status: Never smoker Second Hand Exposure: No; Do You Dip or Chew Tobacco: No; Hx Alcohol Use: No Hx Substance Use: No Preferred Language: Moldovan Communication Ability: Effective Visual Impairment: No Limitations Hearing Ability: Normal Rehab/Pre Vocational Counselor Required: No Beliefs That Will Affect Care: None marital status: Current Living Situation: Spouse Current Living Situation Comment: house current occupational status: retired Feels Safe at Home: Yes Assistive Devices: Cane Physical Exam Exam: Constitutional: Appearance normally developed Head and face: normocephalic and atraumatic Eyes: no ptosis, no anisocoria, and no dysconjugate gaze Respiratory: normal effort Cardiovascular: regular rhythm and regular rate Abdomen: non distended Skin: no rashes, lesions, or ulcers noted Psychiatric: flat affect NEUROLOGIC EXAMINATION: Mental Status:alert, oriented to time, place, person, normal recent memory, normal remote memory, normal attention span, normal concentration, normal language, and normal fund of knowledge Cranial Nerves: CN 2 - no visual defect on confrontation and pupils round, equal, reactive to light CN 3, 4, 6 - extra-ocular movements intact and no nystagmus CN 5 - facial sensation intact CN 7 - no facial asymmetry CN 8 - intact hearing CN 9, 10 - palate symmetric, normal gag CN 11 - good shoulder shrug CN 12 - tongue midline MOTOR: Strength was at least antigravity throughout, Pronator drift was absent, and There were no abnormal movements, able to wiggle toes SENSATION: intact to light touch throughout GAIT: COORDINATION: no ataxia with finger to nose testing REFLEXES: cannot assess over telemedicine Results & Data Vital Signs (Past 12 Hours) Vital Signs Temp Pulse Resp BP Pulse Ox O2 Del Method 03/16/23 07:38 36.8 C 86 20 157/78 H 94 Room Air 03/16/23 03:20 36.7 C 93 H 16 137/78 94 Room Air 03/16/23 00:00 Room Air 03/15/23 23:22 36.7 C 89 17 128/73 95 Room Air Laboratory Results Abnormal Lab Results 03/15/23 03/15/23 03/15/23 15:38 20:04 21:18 WBC 16.24 H RBC 4.23 Hgb 11.7 L D Hct 35.4 L MCV 83.7 MCH 27.7 MCHC 33.1 RDW Std Deviation 42.5 RDW Coeff of Chrissie 13.9 Plt Count 401 H D MPV 10.9 Immature Gran % (Auto) 0.4 Neut % (Auto) 82.7 Lymph % (Auto) 6.1 Gregory % (Auto) 10.5 Eos % (Auto) 0.1 Baso % (Auto) 0.2 Neut # (Auto) 13.42 H Lymph # (Auto) 0.99 L Gregory # (Auto) 1.71 H Eos # (Auto) 0.01 Baso # (Auto) 0.04 Immature Gran # (Auto) 0.07 ABG pH 7.48 H ABG pCO2 30 L ABG pO2 72 L ABG HCO3 22 ABG O2 Saturation 97.0 H ABG Base Excess -0.3 Damon Test Pos Oxygen Given ROOM AIR Sodium 135 L Potassium 4.1 Chloride 104 Carbon Dioxide 23 Anion Gap 8 BUN 18 Creatinine 0.62 Est Cr Clr Drug Dosing 81.4 Est GFR ( Amer) 101.5 Est GFR (Non-Af Amer) 87.6 BUN/Creatinine Ratio 29.0 H Glucose 129 H POC Glucose 145 H Calcium 8.6 Magnesium 2.0 Total Bilirubin 0.4 AST 12 L ALT 8 Alkaline Phosphatase 64 Ammonia Total Protein 6.6 Albumin 3.2 L Globulin 3.4 Albumin/Globulin Ratio 0.9 TSH 2.328 Lyme Disease IgG Ab Lyme Disease IgM Ab 03/16/23 06:16 WBC 13.31 H RBC 4.04 L Hgb 11.3 L Hct 34.4 L MCV 85.1 MCH 28.0 MCHC 32.8 RDW Std Deviation 42.8 RDW Coeff of Chrissie 13.6 Plt Count 343 MPV 11.1 Immature Gran % (Auto) 0.6 Neut % (Auto) 85.9 Lymph % (Auto) 5.9 Gregory % (Auto) 7.3 Eos % (Auto) 0.1 Baso % (Auto) 0.2 Neut # (Auto) 11.45 H Lymph # (Auto) 0.78 L Gregory # (Auto) 0.97 H Eos # (Auto) 0.01 Baso # (Auto) 0.02 Immature Gran # (Auto) 0.08 ABG pH ABG pCO2 ABG pO2 ABG HCO3 ABG O2 Saturation ABG Base Excess Damon Test Oxygen Given Sodium 135 L Potassium 4.3 Chloride 105 Carbon Dioxide 21 Anion Gap 9 BUN 21 Creatinine 0.57 L Est Cr Clr Drug Dosing 88.5 Est GFR ( Amer) 104.4 Est GFR (Non-Af Amer) 90.0 BUN/Creatinine Ratio 36.8 H Glucose 132 H POC Glucose Calcium 8.5 L Magnesium 2.1 Total Bilirubin 0.5 AST 10 L ALT 8 Alkaline Phosphatase 62 Ammonia 40.0 Total Protein 6.8 Albumin 3.0 L Globulin 3.8 Albumin/Globulin Ratio 0.8 L TSH Lyme Disease IgG Ab Negative Lyme Disease IgM Ab Negative Diagnostic Findings Chest X-Ray 03/16/23 07:41 SINGLE VIEW CHEST CLINICAL HISTORY: Fever FINDINGS: An AP, portable, upright chest radiograph is compared to study dated 03/11/2023 and correlated with chest CT dated 03/01/2023. The cardiomediastinal silhouette is unremarkable. Chronic interstitial thickening is similar to previous. There is bibasilar scarring/atelectasis. The lungs and pleural spaces are otherwise clear. No pneumothorax is seen. The skeletal structures are osteopenic. The bony thorax is grossly intact. IMPRESSION: No active disease in the chest. ACT 112: Negative or not required by law. Electronically signed by: Deon Houston M.D. 03/16/2023 8:32 AM
--- NOTE | 2023-03-16 11:38 | Pharmacy Report ---
Pharmacy PK ABX Note - Date of Service March 16, 2023 - Assessment and Plan Assessment * Ms Palacios is a 77 year old F receiving Vanc/cefepime/doxy PO empirically. * Pt was admitted on 03/11 for significant weakness, following an admission for COVID-19 (diagnosed 03/01/23). * Initially, pt was placed on IV ceftriaxone, which was discontinued when UCx was unremarkable. * Last evening, pt became feverish, tachycardic, with decreased breath sounds b/l. Pt started on broad spectrum empiric abx at that time. * Blood cx pending. Neuro consult pending. Plan Vancomycin * Loading dose: 1750 mg IV x 1 * Maintenance dose: 1000 mg IV every 12 hours * Regimen is predicted to achieve target AUC/AIDA of 400-600 mg/L.hr * Will check vanc level in the next day or so if pt remains on vancomycin. Pharmacy will continue to follow and will adjust dose/frequency as necessary. Susanne young. Pharmacy has transitioned to AUC monitoring for vancomycin. AUC/AIDA is the preferred PK/PD target and is associated with decreased risk of nephrotoxicity compared to traditional trough targets.
[2023-03-16 12:09] LABS: Amorphous Sediment Urine Present (None Prsent)
[2023-03-16] MEDS: TOCOPHERYL, DL-ALPHA 400 UNITS 180 MG CAP PO SCH (12:19)
[2023-03-16] MEDS: MULTIVITAMIN TAB PO SCH (12:21)
[2023-03-16] MEDS: CALCIUM 600MG + VIT D 400 IU TAB PO SCH (12:21)
--- NOTE | 2023-03-16 13:25 | Hospitalist Progress Note ---
Date of Service March 16, 2023 Assessment & Plan (1) Weakness: Plan: 77-year-old female with past medical history significant for mild intermittent asthma, hypertension, irritable bowel syndrome, GERD, chronic interstitial cystitis without hematuria, generalized osteoarthritis, memory disturbance, factor V Leiden mutation, history of CVA, hyponatremia, history of DVT comes because of weakness. Patient was recently diagnosed COVID on March 01 and got admitted and was discharged on March 03. Patient states after going home she was fine for few days. Then she was feeling very weak and tired. Not able to ambulate much. Legs are sore. This reason she came back today. Thinks she might have low-grade fever. A week ago she had some chest discomfort that got resolved. Appetite is okay. No headache. Vision is okay. No runny nose or sore throat. No cough. No shortness of breath. No abdominal pain. Normal bowel and bladder movements. Generalized weakness likely secondary to COVID-19 virus infection COVID test has been positive on 03/01/2023 and again 03/11/2023 during this admission Reassured and will get PT OT evaluation Remains very weak but more alert today, seems she has not had the energy to even feed herself Remains hemodynamically stable but has not been moving her limbs, taking her food or medications due to weakness and tiredness PT/OT received 3L of IVF Will continue IVF due to decreased urine output and decreased total intake, dehydration likely playing a role Son was requesting neuro consult to r/o neurologic process - will place Fever infectious w/u in place due to elevated temp x 2 and lethargy CXR and UA negative and reassuring blood cultures pending vanco/cefepime/Doxy on board lyme tested and negative, random cortisol ordered COVID 19 virus infection Remains asymptomatic otherwise but very weak COVID precautions Does not require any more COVID precautions she is about 14 days out of initial COVID infection Possible UTI Rocephin received 4 doses of IV ceftriaxone now on vanc/cefepime, doxy Urine thus far has been negative Sinus tachycardia ekg sinus tachy, no st t wave changes on 03/15 one time fever last evening 38.4 improving with IVF and antibiotics Right upper ext edema US:IMPRESSION: No venous thrombus within the right upper extremity. History of asthma Continue home inhalers No acute symptoms Hypertension On amlodipine bp stable GERD Omeprazole History of hyponatremia On salt tablets We will follow labs History of factor V Leyden deficiency History of DVT Seems current not on anticoagulation Needs follow-up Bowel Prophylaxis no BM since admission will start daily miralax and Senna S BID DVT prophylaxis Lovenox Disposition Medical floor, not yet medically stable, ruling out infection, hydration, PT/OT, will need rehab Full code Obtain CBC, CMP, mag, in a.m. Pt was seen and examined in collaboration with Dr. Rodriguez please see addendum A total of 50 was spent coordinating, documenting, and providing care for this patient excluding time spent in the performance of separately billed services. This included personally viewing all current laboratories and imaging studies, medication reconciliation, outpatient chart review, and discussion with specialists. Admission and Anticipated Discharge Date Admission Date: March 11, 2023 Supervising Physician Co-Signing Physician Notes delayed entry date of service noted above Attending Addendum: care coordinated with GRAYSON Dee please refer to her notes for full details, I agree with her notes patient seen and examined, records reviewed by myself as well diagnoses and plan of care as per GRAYSON Dee's notes Tramaine Rodriguez MD Subjective Patient was seen and examined in room 324. Follow-up generalized weakness. at bedside who helps elicit history. She is more alert today and able to answer questions. Complains of pain all over and pain in neck. Denies f/c/s/, chest pain, sob, cough, n/v. She did eat some of her breakfast today. concerned due to swelling in R arm and dehydration. Review of Systems Review of Systems: All systems reviewed & are unremarkable except as noted in HPI & below Physical Exam Physical Exam: Gen: chronically ill appearing, NAD, alert, oriented x 3, sitting up in bed, head tilt to the left HEENT: Normocephalic, atraumatic, head tilted to left, conjunctivae moist, sclerae anicteric, mucous membranes moist. Lung: diminished breath sounds b/l , poor insp effort, no wheezes/rales/rhonchi Heart: Regular rate, regular rhythm, no murmurs, rubs, or gallops Abdomen: Soft, NT, ND +BS x 4 Extremities: No edema lower ext, RUE edema Skin: Warm, no rash, negative turgor. 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 to ext Results & Data Results & Data Vital Signs (Past 12 Hours) Vital Signs Temp Pulse Resp BP Pulse Ox O2 Del Method 03/16/23 07:38 36.8 C 86 20 157/78 H 94 Room Air 03/16/23 03:20 36.7 C 93 H 16 137/78 94 Room Air Laboratory Results Short CBC 03/15/23 03/16/23 Range/Units 15:38 06:16 WBC 16.24 H 13.31 H (4.8-10.8) K/ul Hgb 11.7 L D 11.3 L (12.0-16.0) g/dl Hct 35.4 L 34.4 L (37.0-47.0) % Plt Count 401 H D 343 (130-400) K/uL BMP 03/15/23 03/16/23 15:38 06:16 Sodium 135 L 135 L Potassium 4.1 4.3 Chloride 104 105 Carbon Dioxide 23 21 BUN 18 21 Creatinine 0.62 0.57 L Glucose 129 H 132 H Calcium 8.6 8.5 L Liver Function 03/15/23 03/16/23 Range/Units 15:38 06:16 Total Bilirubin 0.4 0.5 (0.2-1.0) mg/dl AST 12 L 10 L (13-39) U/L ALT 8 8 (7-52) U/L Alkaline Phosphatase 64 62 (34-104) U/L Albumin 3.2 L 3.0 L (3.4-5.0) gm/dl Urine 03/16/23 Range/Units Unknown Urine Color Yellow Urine Appearance Cloudy A (Clear) Urine pH 5.5 (4.5-7.5) Ur Specific [place] 1.023 (1.000-1.030) Urine Protein 1+ H (Negative) Urine Glucose (UA) Negative (Negative) I have independently reviewed and interpreted patient's labs including CBC, CMP, mag, ammonia, tsh, UA, CXR. Diagnostic Findings Chest X-Ray 03/16/23 07:41 SINGLE VIEW CHEST CLINICAL HISTORY: Fever FINDINGS: An AP, portable, upright chest radiograph is compared to study dated 03/11/2023 and correlated with chest CT dated 03/01/2023. The cardiomediastinal silhouette is unremarkable. Chronic interstitial thickening is similar to previous. There is bibasilar scarring/atelectasis. The lungs and pleural spaces are otherwise clear. No pneumothorax is seen. The skeletal structures are osteopenic. The bony thorax is grossly intact. IMPRESSION: No active disease in the chest. ACT 112: Negative or not required by law. Electronically signed by: Deon Houston M.D. 03/16/2023 8:32 AM
[2023-03-16] MEDS: POLYETHYLENE (MIRALAX) 17 GM PACK PO SCH (14:42)
[2023-03-16] MEDS: MONTELUKAST SODIUM 10 MG TABLET PO SCH (20:57)
[2023-03-16] MEDS: DOCUSATE SODIUM/SENNA 50/8.6MG TAB PO SCH (20:58)
[2023-03-17] MEDS: PANTOprazole 40 MG TAB PO SCH (05:44)
[2023-03-17] MEDS: CEFEPIME 2,000 MG in SYRINGE 0 ML IV SCH ×2 (05:45→13:10)
[2023-03-17 07:11] LABS: Albumin Globulin Ratio 0.8 (0.9-2); Albumin Level 2.9 gm/dl (3.4-5.0); BUN Creatinine Ratio 42.2 (10-20); Bilirubin,Total 0.4 mg/dl (0.2-1.0); Calcium 8.5 mg/dl (8.6-10.3); Creatinine Clr Calc Pharmacy 112.2 ml/min; Est GFR (African American) 112.8 ml/min; Est GFR (Non-African American) 97.3 ml/min; Globulin 3.6 gm/dl (2.5-4.0); Magnesium 1.9 mg/dl (1.7-2.4); Potassium 4.1 mmol/L (3.5-5.1); Total Protein 6.5 gm/dl (6.0-8.3)
[2023-03-17 07:23] LABS: Hemoglobin 11.3 g/dl (12.0-16.0); Mean Corpuscular Hemoglobin 27.6 pg (25.0-34.0); Mean Corpuscular Hgb Conc 32.3 g/dL (32.0-36.0); Mean Corpuscular Volume 85.6 fL (80.0-100.0); Mean Platelet Volume 11.3 fL (9.4-12.4); Platelet Count 425 K/uL (130-400); RDW Coefficient of Variation 13.4 % (11.5-14.5); RDW Standard Deviation 42.5 fL (36.4-46.3); Red Blood Count 4.09 M/uL (4.20-5.40); White Blood Count 12.08 K/ul (4.8-10.8)
[2023-03-17 07:55] LABS: Basophils # (auto) 0.02 K/uL (0.00-0.20); Basophils % (auto) 0.2 %; Echinocytes 1+; Eosinophils # (auto) 0.01 K/uL (0.00-0.50); Eosinophils % (auto) 0.1 %; Immature Granulocytes # (auto) 0.09 K/uL (0.01-0.20); Immature Granulocytes % (auto) 0.7 %; Lymphocytes # (auto) 1.05 K/uL (1.20-3.40); Lymphocytes % (auto) 8.7 %; Monocytes # (auto) 1.08 K/uL (0.11-0.59); Monocytes % (auto) 8.9 %; Neutrophils # (auto) 9.83 K/uL (1.40-6.50); Neutrophils % (auto) 81.4 %; Ovalocytes 1+
[2023-03-17] MEDS: ENOXAPARIN INJ 40 MG/0.4 ML SYR SQ SCH (07:56)
[2023-03-17] MEDS: amLODIPine BESYLATE 5 MG TAB PO SCH (07:58)
[2023-03-17] MEDS: FAMOTIDINE 20 MG TAB PO SCH ×2 (07:59→20:50)
[2023-03-17] MEDS: DOCUSATE SODIUM/SENNA 50/8.6MG TAB PO SCH ×2 (07:59→20:50)
[2023-03-17] MEDS: ASPIRIN 325 MG ECTAB PO SCH (07:59)
[2023-03-17] MEDS: DOXYCYCLINE HYCLATE 100 MG CAP PO SCH (07:59)
[2023-03-17] MEDS: POLYETHYLENE (MIRALAX) 17 GM PACK PO SCH (08:00)
[2023-03-17] MEDS: IPRATROPIUM BROMIDE NASAL SPRAY 0.06% 15ML NAE SCH ×2 (08:00→20:50)
[2023-03-17] MEDS: FLUTICASONE PROPIONATE NA SPR 16 GM BTL SCH (08:00)
[2023-03-17] MEDS: SODIUM CHLORIDE 1 GM TABLET PO SCH ×2 (08:01→20:49)
[2023-03-17] MEDS: VANCOMYCIN HCL 1,000 MG in SODIUM CHLORIDE 0.9% 250 ML IV SCH ×2 (08:49→20:48)
[2023-03-17] MEDS: TOCOPHERYL, DL-ALPHA 400 UNITS 180 MG CAP PO SCH (12:21)
[2023-03-17] MEDS: MULTIVITAMIN TAB PO SCH (12:21)
[2023-03-17] MEDS: CALCIUM 600MG + VIT D 400 IU TAB PO SCH (12:21)
--- NOTE | 2023-03-17 13:57 | Hospitalist Progress Note ---
Date of Service March 17, 2023 Assessment & Plan (1) Weakness: Plan: 77-year-old female with past medical history significant for mild intermittent asthma, hypertension, irritable bowel syndrome, GERD, chronic interstitial cystitis without hematuria, generalized osteoarthritis, memory disturbance, factor V Leiden mutation, history of CVA, hyponatremia, history of DVT comes because of weakness. Patient was recently diagnosed COVID on March 01 and got admitted and was discharged on March 03. Patient states after going home she was fine for few days. Then she was feeling very weak and tired. Not able to ambulate much. Legs are sore. This reason she came back today. Thinks she might have low-grade fever. A week ago she had some chest discomfort that got resolved. Appetite is okay. No headache. Vision is okay. No runny nose or sore throat. No cough. No shortness of breath. No abdominal pain. Normal bowel and bladder movements. Generalized weakness likely secondary to COVID-19 virus infection COVID test has been positive on 03/01/2023 and again 03/11/2023 during this admission Reassured and will get PT OT evaluation She has been improving these last 2 days Neuro feels no further w/u needed likely all in setting of illness and deconditioning Fever infectious w/u in place due to elevated temp x 2 and lethargy CXR and UA negative and reassuring blood cultures negative thus far vanco/cefepime/Doxy on board lyme tested and negative Pt has been on antibiotics 48hrs - given no signs of infection will hold off on antibiotics and monitor COVID 19 virus infection Remains asymptomatic otherwise but very weak COVID precautions Does not require any more COVID precautions she is about 14 days out of initial COVID infection Abnormal UA negative for infection received antibiotic Sinus tachycardia ekg sinus tachy, no st t wave changes on 03/15 one time fever last evening 38.4 improving with IVF and antibiotics Right upper ext edema US:IMPRESSION: No venous thrombus within the right upper extremity. History of asthma Continue home inhalers No acute symptoms Hypertension On amlodipine bp stable GERD Omeprazole History of hyponatremia On salt tablets We will follow labs History of factor V Leyden deficiency History of DVT Seems current not on anticoagulation Needs follow-up Bowel Prophylaxis no BM since admission will start daily miralax and Senna S BID DVT prophylaxis Lovenox Disposition Medical floor, not yet medically stable, will need monitored over next 1-2 days if continues to improve will likely be ready for rehab Full code Obtain CBC, CMP, mag, in a.m. Pt was seen and examined in collaboration with Dr. Rodriguez please see addendum A total of 48 was spent coordinating, documenting, and providing care for this patient excluding time spent in the performance of separately billed services. This included personally viewing all current laboratories and imaging studies, medication reconciliation, outpatient chart review, and discussion with specialists. Admission and Anticipated Discharge Date Admission Date: March 11, 2023 Supervising Physician Co-Signing Physician Notes delayed entry date of service noted above Attending Addendum: care coordinated with GRAYSON Dee please refer to her notes for full details, I agree with her notes patient seen and examined, records reviewed by myself as well diagnoses and plan of care as per GRAYSON Dee's notes Tramaine Rodriguez MD Subjective Patient was seen and examined in room 324. Follow-up generalized weakness. " Today is the best I have felt in the last 2 days." She ate breakfast fairly well. She denies fever, chills, sweats, lightheadedness, dizziness, chest pain, shortness of breath, nausea or vomiting. Discussed with RN who states that she already worked with OT and got to edge of bed and cleaned herself up a bit. Feels she is doing better but also mentioned that she was a little bit confused last evening and was saying [id number] statements. Review of Systems Review of Systems: All systems reviewed & are unremarkable except as noted in HPI & below Physical Exam Physical Exam: Gen: chronically ill appearing, NAD, more alert, oriented x 3, sitting up in bed HEENT: Normocephalic, atraumatic, conjunctivae moist, sclerae anicteric, mucous membranes moist. Lung: diminished breath sounds b/l , poor insp effort, no wheezes/rales/rhonchi Heart: Regular rate, regular rhythm, no murmurs, rubs, or gallops Abdomen: Soft, NT, ND +BS x 4 Extremities: No edema lower ext, RUE edema Skin: Warm, no rash, negative turgor. Results & Data Results & Data Vital Signs (Past 12 Hours) Vital Signs Temp Pulse Resp BP Pulse Ox O2 Del Method 03/17/23 07:50 Room Air 03/17/23 07:05 36.6 C 92 H 20 155/83 H 99 Room Air 03/17/23 05:57 36.3 C L 93 H 18 151/84 H 96 Room Air Laboratory Results Short CBC 03/17/23 Range/Units 06:04 WBC 12.08 H (4.8-10.8) K/ul Hgb 11.3 L (12.0-16.0) g/dl Hct 35.0 L (37.0-47.0) % Plt Count 425 H (130-400) K/uL BMP 03/17/23 06:04 Sodium 136 Potassium 4.1 Chloride 107 Carbon Dioxide 21 BUN 19 Creatinine 0.45 L Glucose 92 Calcium 8.5 L Liver Function 03/17/23 Range/Units 06:04 Total Bilirubin 0.4 (0.2-1.0) mg/dl AST 21 (13-39) U/L ALT 15 (7-52) U/L Alkaline Phosphatase 62 (34-104) U/L Albumin 2.9 L (3.4-5.0) gm/dl I have independently reviewed and interpreted patient's labs including CBC, CMP mag. Medications Administered Current Inpatient Medications Albuterol (Albuterol Hfa 8 Gm Inhaler) 2 puffs INH QID PRN PRN Reason: Shortness Of Breath Or Wheezin Stop: 04/11/23 00:14 Amlodipine Besylate (Amlodipine Besylate 5 Mg Tab) [facility] [place] Stop: 04/11/23 08:59 Last Admin: 03/17/23 07:58 Dose: 2.5 mg Aspirin (Aspirin 325 Mg Ectab) 325 mg PO QAM [facility] Stop: 04/11/23 08:59 Last Admin: 03/17/23 07:59 Dose: 325 mg Calcium/Vitamin D (Calcium 600mg + Vit D 400 Iu Tab) 1 tab PO QDL [facility] Stop: 04/11/23 11:29 Last Admin: 03/17/23 12:21 Dose: 1 tab Doxycycline Hyclate (Doxycycline Hyclate 100 Mg Cap) 100 mg PO BID [facility] Stop: 03/17/23 20:59 Last Admin: 03/17/23 07:59 Dose: 100 mg Enoxaparin Sodium (Enoxaparin Inj 40 Mg/0.4 Ml Syr) 40 mg SQ QAM [facility] Stop: 04/11/23 08:59 Last Admin: 03/17/23 07:56 Dose: 40 mg Famotidine (Famotidine 20 Mg Tab) 20 mg PO BID [facility] Stop: 04/11/23 08:59 Last Admin: 03/17/23 07:59 Dose: 20 mg Fluticasone Propionate (Fluticasone Propionate Na Spr 16 Gm Btl) 2 sprays NA QAM [facility] Stop: 04/11/23 08:59 Last Admin: 03/17/23 08:00 Dose: 2 sprays Acetaminophen (Ofirmev) 1,000 mg in 100 mls @ 400 mls/hr IV Q8H PRN PRN Reason: Pain Stop: 03/17/23 18:31 Last Infusion: 03/15/23 20:06 Dose: Infused Vancomycin HCl 1,000 mg/ (Sodium Chloride) 270 mls @ 200 mls/hr IV Q12H [facility]; Protocol Stop: 03/18/23 08:59 Last Infusion: 03/17/23 10:10 Dose: Infused Cefepime HCl 2,000 mg/ Syringe 20 mls @ 5 mls/min IV Q8H [facility]; Protocol Stop: 03/17/23 20:59 Last Admin: 03/17/23 13:10 Dose: 5 mls/min Ipratropium [place] (Ipratropium [place] Nasal [place] 0.06% 15ml) 1 sprays [place] BID [facility] Stop: 04/11/23 08:59 Last Admin: 03/17/23 08:00 Dose: 1 sprays Meclizine HCl (Meclizine Hcl 25 Mg Tab) 25 mg PO HS PRN PRN Reason: dizzyiness Stop: 04/11/23 00:14 Miscellaneous Information (Vancomycin Consult Active) 1 each N/A UD PRN PRN Reason: Consult Stop: 03/17/23 23:59 Montelukast Sodium (Montelukast Sodium 10 Mg Tablet) 10 mg PO HS [facility] Stop: 04/11/23 20:59 Last Admin: 03/16/23 20:57 Dose: 10 mg Multivitamins (Multivitamin Tab) 1 tab PO QDL [facility] Stop: 04/11/23 11:29 Last Admin: 03/17/23 12:21 Dose: 1 tab Pantoprazole Sodium (Pantoprazole 40 Mg Tab) 40 mg PO DAILYBB [facility] Stop: 04/11/23 06:29 Last Admin: 03/17/23 05:44 Dose: 40 mg Polyethylene Glycol (Polyethylene (Miralax) 17 Gm Pack) 17 gm PO DAILY PRN PRN Reason: Constipation Stop: 04/11/23 00:14 Polyethylene Glycol (Polyethylene (Miralax) 17 Gm Pack) 17 gm PO DAILY [facility] Stop: 04/15/23 13:44 Last Admin: 03/17/23 08:00 Dose: 17 gm Senna/Docusate Sodium (Docusate Sodium/Senna 50/8.6mg Tab) 1 tab PO BID [facility] Stop: 04/15/23 20:59 Last Admin: 03/17/23 07:59 Dose: 1 tab Sodium Chloride (Sodium Chloride 1 Gm Tablet) 1 gm PO BID [facility] Stop: 04/11/23 08:59 Last Admin: 03/17/23 08:01 Dose: 1 gm Trolamine Salicylate (Trolamine Salicylate 10% Crm 255 Appln/85 Gm Tube) 1 appln EXT BID PRN PRN Reason: Pain Stop: 04/11/23 00:14 Vitamin E (Tocopheryl, Dl-Alpha 400 Units 180 Mg Cap) 400 units PO QDL [facility] Stop: 04/11/23 11:29 Last Admin: 03/17/23 12:21 Dose: 400 units
[2023-03-17] MEDS: MONTELUKAST SODIUM 10 MG TABLET PO SCH (20:50)
[2023-03-18] MEDS: PANTOprazole 40 MG TAB PO SCH (05:46)
[2023-03-18] MEDS: DOCUSATE SODIUM/SENNA 50/8.6MG TAB PO SCH ×2 (09:25→20:41)
[2023-03-18] MEDS: FAMOTIDINE 20 MG TAB PO SCH ×2 (09:25→20:41)
[2023-03-18] MEDS: amLODIPine BESYLATE 5 MG TAB PO SCH (09:25)
[2023-03-18] MEDS: ENOXAPARIN INJ 40 MG/0.4 ML SYR SQ SCH (09:25)
[2023-03-18] MEDS: POLYETHYLENE (MIRALAX) 17 GM PACK PO SCH (09:25)
[2023-03-18] MEDS: ASPIRIN 325 MG ECTAB PO SCH (09:25)
[2023-03-18] MEDS: SODIUM CHLORIDE 1 GM TABLET PO SCH ×2 (09:25→20:41)
[2023-03-18] MEDS: IPRATROPIUM BROMIDE NASAL SPRAY 0.06% 15ML NAE SCH ×2 (09:26→20:41)
[2023-03-18] MEDS: FLUTICASONE PROPIONATE NA SPR 16 GM BTL SCH (09:26)
[2023-03-18] MEDS: ACETAMINOPHEN 325 MG TAB PO PRN (11:52)
[2023-03-18] MEDS: MULTIVITAMIN TAB PO SCH (11:52)
[2023-03-18] MEDS: CALCIUM 600MG + VIT D 400 IU TAB PO SCH (11:52)
[2023-03-18] MEDS: TOCOPHERYL, DL-ALPHA 400 UNITS 180 MG CAP PO SCH (11:52)
--- NOTE | 2023-03-18 16:32 | Hospitalist Progress Note ---
Date of Service March 18, 2023 Assessment & Plan (1) Weakness: Plan: per GRAYSON Chacha Dee's notes with addendum: 77-year-old female with past medical history significant for mild intermittent asthma, hypertension, irritable bowel syndrome, GERD, chronic interstitial cystitis without hematuria, generalized osteoarthritis, memory disturbance, factor V Leiden mutation, history of CVA, hyponatremia, history of DVT comes because of weakness. Patient was recently diagnosed COVID on March 01 and got admitted and was discharged on March 03. Patient states after going home she was fine for few days. Then she was feeling very weak and tired. Not able to ambulate much. Legs are sore. This reason she came back today. Thinks she might have low-grade fever. A week ago she had some chest discomfort that got resolved. Appetite is okay. No headache. Vision is okay. No runny nose or sore throat. No cough. No shortness of breath. No abdominal pain. Normal bowel and bladder movements. Generalized weakness likely secondary to COVID-19 virus infection COVID test has been positive on 03/01/2023 and again 03/11/2023 during this admission Reassured and will get PT OT evaluation She has been improving these last 2 days Neuro feels no further w/u needed likely all in setting of illness and deconditioning 03/18 improving gradually continue PT/OT eval will need Rehab Fever infectious w/u in place due to elevated temp x 2 and lethargy CXR and UA negative and reassuring blood cultures negative thus far vanco/cefepime/Doxy on board lyme tested and negative Pt has been on antibiotics 48hrs - given no signs of infection will hold off on antibiotics and monitor 03/18 cultures negative afebrile, off antibiotics since yesterday monitor COVID 19 virus infection Remains asymptomatic otherwise but very weak COVID precautions Does not require any more COVID precautions she is about 14 days out of initial COVID infection Abnormal UA negative for infection received antibiotic Sinus tachycardia ekg sinus tachy, no st t wave changes on 03/15 one time fever last evening 38.4 improving with IVF and antibiotics Right upper ext edema US:IMPRESSION: No venous thrombus within the right upper extremity. History of asthma Continue home inhalers No acute symptoms Hypertension On amlodipine bp stable GERD Omeprazole History of hyponatremia On salt tablets Na stable at 136 History of factor V Leyden deficiency History of DVT Seems current not on anticoagulation Needs follow-up Bowel Prophylaxis no BM since admission daily miralax and Senna S BID DVT prophylaxis Lovenox Disposition Medical floor, not yet medically stable, will need monitored over next 1-2 days if continues to improve will likely be ready for rehab Full code Admission and Anticipated Discharge Date Admission Date: March 11, 2023 Subjective ff up for weakness, etc seen resting in bed, comfortable states she feels fine overall still on the weak side but trying to eat more, participate with PT no chest pain, dyspnea, palpitations, dizziness no abdominal pain, nausea no fever/chills, cough no other new symptoms Review of Systems Review of Systems: all noted and negative except for above Physical Exam Physical Exam: General- oriented x 2, not in distress, speaks in sentences with no effort or accessory muscle use Eyes- anicteric Neck- no JVD Lungs- clear BS BL Heart- normal rate, regular rhythm; no murmurs Abdomen- normal bowel sounds, nondistended, soft, nontender Extremities- no pretibial edema, no calf tenderness Neuro- alert, oriented x 3; no gross focal neurologic deficits Skin- warm & dry Results & Data Results & Data Vital Signs (Past 12 Hours) Vital Signs Temp Pulse Resp BP Pulse Ox O2 Del Method 03/18/23 14:42 36.9 C 85 16 152/81 H 94 Room Air 03/18/23 08:24 36.7 C 85 16 148/77 H 92 Room Air
[2023-03-18] MEDS: MONTELUKAST SODIUM 10 MG TABLET PO SCH (20:42)
[2023-03-19] MEDS: PANTOprazole 40 MG TAB PO SCH (05:58)
[2023-03-19] MEDS: ACETAMINOPHEN 325 MG TAB PO PRN (08:56)
[2023-03-19] MEDS: ASPIRIN 325 MG ECTAB PO SCH (08:57)
[2023-03-19] MEDS: SODIUM CHLORIDE 1 GM TABLET PO SCH ×2 (08:57→21:27)
[2023-03-19] MEDS: DOCUSATE SODIUM/SENNA 50/8.6MG TAB PO SCH ×2 (08:57→20:32)
[2023-03-19] MEDS: FAMOTIDINE 20 MG TAB PO SCH ×2 (08:57→20:33)
[2023-03-19] MEDS: amLODIPine BESYLATE 5 MG TAB PO SCH (08:57)
[2023-03-19] MEDS: IPRATROPIUM BROMIDE NASAL SPRAY 0.06% 15ML NAE SCH ×2 (08:58→20:33)
[2023-03-19] MEDS: ENOXAPARIN INJ 40 MG/0.4 ML SYR SQ SCH (08:58)
[2023-03-19 08:59] LABS: BUN Creatinine Ratio 31.5 (10-20); Calcium 8.8 mg/dl (8.6-10.3); Creatinine Clr Calc Pharmacy 93.5 ml/min; Est GFR (African American) 106.2 ml/min; Est GFR (Non-African American) 91.7 ml/min; Magnesium 1.8 mg/dl (1.7-2.4); Phosphorus 3.7 mg/dl (2.5-4.9)
[2023-03-19] MEDS: POLYETHYLENE (MIRALAX) 17 GM PACK PO SCH (08:59)
[2023-03-19] MEDS: FLUTICASONE PROPIONATE NA SPR 16 GM BTL SCH (08:59)
[2023-03-19] MEDS: SODIUM CHLORIDE 0.9% 1,000 ML IV SCH ×2 (09:26→21:38)
[2023-03-19 12:28] LABS: Basophils # (auto) 0.07 K/uL (0.00-0.20); Basophils % (auto) 0.7 %; Eosinophils # (auto) 0.36 K/uL (0.00-0.50); Eosinophils % (auto) 3.3 %; Hematocrit (blood only) 37.4 % (37.0-47.0); Immature Granulocytes # (auto) 0.13 K/uL (0.01-0.20); Immature Granulocytes % (auto) 1.2 %; Lymphocytes # (auto) 1.94 K/uL (1.20-3.40); Mean Corpuscular Hemoglobin 27.1 pg (25.0-34.0); Mean Corpuscular Hgb Conc 32.1 g/dL (32.0-36.0); Mean Corpuscular Volume 84.4 fL (80.0-100.0); Mean Platelet Volume 10.7 fL (9.4-12.4); Monocytes % (auto) 15.8 %; Neutrophils # (auto) 6.56 K/uL (1.40-6.50); Platelet Count 519 K/uL (130-400); RDW Coefficient of Variation 13.9 % (11.5-14.5); RDW Standard Deviation 43.2 fL (36.4-46.3); Red Blood Count 4.43 M/uL (4.20-5.40); White Blood Count 10.76 K/ul (4.8-10.8)
[2023-03-19] MEDS: TOCOPHERYL, DL-ALPHA 400 UNITS 180 MG CAP PO SCH (12:29)
[2023-03-19] MEDS: CALCIUM 600MG + VIT D 400 IU TAB PO SCH (12:29)
[2023-03-19] MEDS: MULTIVITAMIN TAB PO SCH (12:30)
--- NOTE | 2023-03-19 19:09 | Hospitalist Progress Note ---
Date of Service March 19, 2023 delayed entry date of service noted above Assessment & Plan (1) Weakness: Plan: per GRAYSON Chacha Dee's notes with addendum: 77-year-old female with past medical history significant for mild intermittent asthma, hypertension, irritable bowel syndrome, GERD, chronic interstitial cystitis without hematuria, generalized osteoarthritis, memory disturbance, factor V Leiden mutation, history of CVA, hyponatremia, history of DVT comes because of weakness. Patient was recently diagnosed COVID on March 01 and got admitted and was discharged on March 03. Patient states after going home she was fine for few days. Then she was feeling very weak and tired. Not able to ambulate much. Legs are sore. This reason she came back today. Thinks she might have low-grade fever. A week ago she had some chest discomfort that got resolved. Appetite is okay. No headache. Vision is okay. No runny nose or sore throat. No cough. No shortness of breath. No abdominal pain. Normal bowel and bladder movements. Generalized weakness likely secondary to COVID-19 virus infection COVID test has been positive on 03/01/2023 and again 03/11/2023 during this admission Reassured and will get PT OT evaluation She has been improving these last 2 days Neuro feels no further w/u needed likely all in setting of illness and deconditioning 03/18 improving gradually continue PT/OT eval will need Rehab Fever infectious w/u in place due to elevated temp x 2 and lethargy CXR and UA negative and reassuring blood cultures negative thus far vanco/cefepime/Doxy on board lyme tested and negative Pt has been on antibiotics 48hrs - given no signs of infection will hold off on antibiotics and monitor 03/18 cultures negative afebrile, off antibiotics since yesterday monitor 03/19 cultures remain negative appears weak IV fluids encouraged to increase oral fluid intake monitor closely COVID 19 virus infection Remains asymptomatic otherwise but very weak COVID precautions Does not require any more COVID precautions she is about 14 days out of initial COVID infection Abnormal UA negative for infection received antibiotic Sinus tachycardia ekg sinus tachy, no st t wave changes on 03/15 one time fever last evening 38.4 improving with IVF and antibiotics Right upper ext edema US:IMPRESSION: No venous thrombus within the right upper extremity. History of asthma Continue home inhalers No acute symptoms Hypertension On amlodipine bp stable GERD Omeprazole History of hyponatremia On salt tablets Na stable at 136 History of factor V Leyden deficiency History of DVT Seems current not on anticoagulation Needs follow-up Bowel Prophylaxis no BM since admission daily miralax and Senna S BID DVT prophylaxis Lovenox Disposition Medical floor, not yet medically stable, will need monitored over next 1-2 days if continues to improve will likely be ready for rehab Full code Admission and Anticipated Discharge Date Admission Date: March 11, 2023 Subjective ff up for weakness, etc seen resting in bed, family at bedside alert, answers questions appropriately weaker than previous day can move all extremities equally appetite is ok no other symptoms Review of Systems Review of Systems: all noted and negative except for above Physical Exam Physical Exam: General- oriented x 3, not in distress, speaks in sentences with no effort or accessory muscle use weak Eyes- anicteric Neck- no JVD Lungs- clear breath sounds bilaterally, no rales/wheezes Heart- normal rate, regular rhythm; no murmurs Abdomen- normal bowel sounds, nondistended, soft, nontender Extremities- no pretibial edema, no calf tenderness Neuro- alert, oriented x 3; no gross focal neurologic deficits Skin- warm & dry Results & Data Results & Data Vital Signs (Past 12 Hours) Vital Signs Temp Pulse Resp BP Pulse Ox O2 Del Method 03/19/23 16:08 37.5 C 94 H 18 129/78 95 Room Air 03/19/23 14:40 Room Air all noted and reviewed including below
[2023-03-19] MEDS: MONTELUKAST SODIUM 10 MG TABLET PO SCH (20:33)
[2023-03-20] MEDS: PANTOprazole 40 MG TAB PO SCH (05:25)
[2023-03-20] MEDS: DOCUSATE SODIUM/SENNA 50/8.6MG TAB PO SCH ×2 (08:44→20:12)
[2023-03-20] MEDS: amLODIPine BESYLATE 5 MG TAB PO SCH (08:44)
[2023-03-20] MEDS: ASPIRIN 325 MG ECTAB PO SCH (08:44)
[2023-03-20] MEDS: ENOXAPARIN INJ 40 MG/0.4 ML SYR SQ SCH (08:45)
[2023-03-20] MEDS: FAMOTIDINE 20 MG TAB PO SCH ×2 (08:45→20:12)
[2023-03-20] MEDS: IPRATROPIUM BROMIDE NASAL SPRAY 0.06% 15ML NAE SCH ×2 (08:45→20:12)
[2023-03-20] MEDS: SODIUM CHLORIDE 1 GM TABLET PO SCH ×2 (08:45→20:12)
[2023-03-20] MEDS: FLUTICASONE PROPIONATE NA SPR 16 GM BTL SCH (08:46)
[2023-03-20] MEDS: POLYETHYLENE (MIRALAX) 17 GM PACK PO SCH (09:56)
[2023-03-20] MEDS: SODIUM CHLORIDE 0.9% 1,000 ML IV SCH (10:40)
[2023-03-20] MEDS: TOCOPHERYL, DL-ALPHA 400 UNITS 180 MG CAP PO SCH (11:36)
[2023-03-20] MEDS: CALCIUM 600MG + VIT D 400 IU TAB PO SCH (11:36)
--- NOTE | 2023-03-20 12:21 | Neurology Progress Note ---
Date of Service March 20, 2023 Assessment & Plan (1) Lethargy: Lethary in a 77F with a PMH of recent COVID 19 infection, HTN, prior DVT and spinal stenosis. On exam she is lethargic and follows simple commands. There is no clear focality to her exam. By report she has had similar (less severe) episodes in the past with immunizations. Her exam is limited but doesnt appear terribly consistent with GBS. Another potential cause could be post-COVID 19 fatigue or an underlying muscle disorder. Plan -- recommend LP send cell count, protein, glucose and culture -- CK Subjective Telehealth Information I performed this visit using a real-time telehealth connection between my location and the patients location ([facility]). After connecting through interactive tele-video, patient was identified by name and date of and/or wristband check.Patient (or authorized healthcare outside medical sales representative) was informed that this was a telemedicine visit and it was being conducted confidentially over secure lines. My office door was closed and no one else was present in the room with me.Patient (or authorized healthcare outside medical sales representative) provided consent to proceed with the visit, expressed an understanding of privacy and security of the telemedicine visit, and gave permission to have a hospital outside medical sales representative in the room in order to assist with the visit and to conduct portions of the visit, as needed. I informed the patient (or authorized healthcare outside medical sales representative) that I reviewed their record and presented the opportunity for them to ask any questions regarding the visit today. The patient agreed to participate. Initially she was doing a bit better and then overnight on 03/18 she had a fever and was started on broad spectrum antibiotics but when no infectious source was found the antibiotics were stopped. yesterday she was able to order her food and feed herself. Today she is very lethargic, and minimally responsive. Physical Exam Exam: NEUROLOGIC EXAMINATION: Mental Status:lethargic, follow simple commands, limited speech output Cranial Nerves: CN 2 - no visual defect on confrontation and pupils round, equal, reactive to light CN 3, 4, 6 - extra-ocular movements intact and no nystagmus CN 7 - no facial asymmetry MOTOR: Moves arms and feet, but doesn't hold any against gravity SENSATION: intact to light touch Results & Data Vital Signs (Past 12 Hours) Vital Signs Temp Pulse Resp BP Pulse Ox O2 Del Method 03/20/23 10:55 Room Air 03/20/23 07:02 37.3 C 90 18 145/85 H 97 Room Air Laboratory Results Most recent lab results ABG pH 7.48 (7.35-7.45) H 03/15/23 21:18 ABG pCO2 30 mmHg (35-46) L 03/15/23 21:18 ABG pO2 72 mmHg (80-95) L 03/15/23 21:18 ABG HCO3 22 mmol/L (19-24) 03/15/23 21:18 ABG O2 Saturation 97.0 % (90-95) H 03/15/23 21:18 Calcium 8.8 mg/dl (8.6-10.3) 03/19/23 08:29 Phosphorus 3.7 mg/dl (2.5-4.9) 03/19/23 08:29 Magnesium 1.8 mg/dl (1.7-2.4) 03/19/23 08:29
[2023-03-20] MEDS: MULTIVITAMIN TAB PO SCH (12:57)
[2023-03-20] MEDS: D5NSS + 20MEQ KCL 20 MEQ/1,000 ML BAG IV SCH (13:35)
[2023-03-20 16:59] LABS: C Reactive Protein 24.44 mg/dl (0-0.5)
[2023-03-20 17:19] LABS: Ferritin 97.4 ng/ml (8-388)
--- NOTE | 2023-03-20 17:58 | XRay Report ---
SINGLE VIEW CHEST CLINICAL HISTORY: Follow-up Covid. FINDINGS: An AP, portable, upright chest radiograph is compared to study dated 03/16/2023. The examina tion is degraded by portable technique and patient rotation. The cardiomediastinal silhouette is unr emarkable. Chronic interstitial thickening similar to previous. There is mild bibasilar scarring/atel ectasis. No airspace consolidation or large pleural effusion is identified. No pneumothorax is seen. The skeletal structures are osteopenic. The bony thorax is grossly intact. IMPRESSION: No active disease in the chest. ACT 112: Negative or not required by law. Electronically signed by: Deon Houston M.D. 03/20/2023 5:56 PM
[2023-03-20] MEDS ORDERED: REMDESIVIR 200 MG in SODIUM CHLORIDE 0.9% 210 ML IV STA (18:30)
--- NOTE | 2023-03-20 18:35 | Hospitalist Progress Note ---
Date of Service March 20, 2023 Assessment & Plan (1) Weakness: Plan: per GRAYSON Chacha Dee's notes with addendum: 77-year-old female with past medical history significant for mild intermittent asthma, hypertension, irritable bowel syndrome, GERD, chronic interstitial cystitis without hematuria, generalized osteoarthritis, memory disturbance, factor V Leiden mutation, history of CVA, hyponatremia, history of DVT comes because of weakness. Patient was recently diagnosed COVID on March 01 and got admitted and was discharged on March 03. Patient states after going home she was fine for few days. Then she was feeling very weak and tired. Not able to ambulate much. Legs are sore. This reason she came back today. Thinks she might have low-grade fever. A week ago she had some chest discomfort that got resolved. Appetite is okay. No headache. Vision is okay. No runny nose or sore throat. No cough. No shortness of breath. No abdominal pain. Normal bowel and bladder movements. Generalized weakness likely secondary to COVID-19 virus infection COVID test has been positive on 03/01/2023 and again 03/11/2023 during this admission Reassured and will get PT OT evaluation She has been improving these last 2 days Neuro feels no further w/u needed likely all in setting of illness and deconditioning Plan Show profound generalized weakness Signs of possible aspiration this morning Neurologist reconsulted Recommend lumbar puncture-will be performed tomorrow per radiology department Check CK level: Normal Check CRP, ferritin, procalcitonin: CRP 24, start remdesivir Fever infectious w/u in place due to elevated temp x 2 and lethargy CXR and UA negative and reassuring blood cultures negative thus far vanco/cefepime/Doxy on board lyme tested and negative Pt has been on antibiotics 48hrs - given no signs of infection will hold off on antibiotics and monitor 03/20 cultures negative afebrile, off antibiotics since 3 days ago Repeat urine, blood cultures COVID 19 virus infection Remains asymptomatic otherwise but very weak COVID precautions Does not require any more COVID precautions she is about 14 days out of initial COVID infection Remdesivir added in light of elevated CRP Abnormal UA negative for infection received antibiotic Right upper ext edema US:IMPRESSION: No venous thrombus within the right upper extremity. History of asthma Continue home inhalers No acute symptoms Hypertension On amlodipine bp stable GERD Omeprazole History of hyponatremia On salt tablets Na stable at 136 History of factor V Leyden deficiency History of DVT Seems current not on anticoagulation Needs follow-up Bowel Prophylaxis no BM since admission daily miralax and Senna S BID DVT prophylaxis Lovenox Admission and Anticipated Discharge Date Admission Date: March 11, 2023 Subjective Follow-up for weakness, COVID-19 infection Seen resting in bed, appears tired, drowsy States she feels okay Notably weaker today Unable to raise arms Was noted to have signs of aspiration with pills today Denies shortness of breath No other new symptom Review of Systems Review of Systems: all noted and negative except for above Physical Exam Physical Exam: General- oriented x 2, not in distress, speaks in sentences with no effort or accessory muscle use Eyes- anicteric Neck- no JVD Lungs- clear breath sounds bilaterally, no crackles or wheezing Heart- normal rate, regular rhythm; no murmurs Abdomen- normal bowel sounds, nondistended, soft, nontender Extremities- no pretibial edema, no calf tenderness Neuro-drowsy, oriented x 3; generalized weakness Skin- warm & dry Results & Data Results & Data Vital Signs (Past 12 Hours) Vital Signs Temp Pulse Resp BP Pulse Ox O2 Del Method 03/20/23 10:55 Room Air 03/20/23 07:02 37.3 C 90 18 145/85 H 97 Room Air all noted and reviewed including below
[2023-03-20] MEDS: MONTELUKAST SODIUM 10 MG TABLET PO SCH (20:12)
[2023-03-21] MEDS: D5NSS + 20MEQ KCL 20 MEQ/1,000 ML BAG IV SCH ×2 (03:34→17:21)
[2023-03-21] MEDS: PANTOprazole 40 MG TAB PO SCH (06:05)
[2023-03-21 07:27] LABS: Basophils # (auto) 0.07 K/uL (0.00-0.20); Basophils % (auto) 0.5 %; Eosinophils # (auto) 0.15 K/uL (0.00-0.50); Hematocrit (blood only) 36.5 % (37.0-47.0); Hemoglobin 11.6 g/dl (12.0-16.0); Immature Granulocytes # (auto) 0.35 K/uL (0.01-0.20); Immature Granulocytes % (auto) 2.3 %; Lymphocytes # (auto) 1.69 K/uL (1.20-3.40); Lymphocytes % (auto) 11.3 %; Mean Corpuscular Hemoglobin 27.1 pg (25.0-34.0); Mean Corpuscular Hgb Conc 31.8 g/dL (32.0-36.0); Mean Corpuscular Volume 85.3 fL (80.0-100.0); Mean Platelet Volume 9.8 fL (9.4-12.4); Monocytes % (auto) 16.1 %; Neutrophils # (auto) 10.24 K/uL (1.40-6.50); Neutrophils % (auto) 68.8 %; Platelet Count 523 K/uL (130-400); RDW Coefficient of Variation 14.1 % (11.5-14.5); RDW Standard Deviation 43.9 fL (36.4-46.3); Red Blood Count 4.28 M/uL (4.20-5.40)
[2023-03-21] MEDS ORDERED: ACETAMINOPHEN 1,000 MG/100 ML VIAL IV STA (07:45)
[2023-03-21 07:46] LABS: Albumin Globulin Ratio 0.9 (0.9-2); Albumin Level 2.8 gm/dl (3.4-5.0); BUN Creatinine Ratio 18.4 (10-20); Bilirubin,Total 0.4 mg/dl (0.2-1.0); Calcium 8.2 mg/dl (8.6-10.3); Est GFR (African American) 109.7 ml/min; Est GFR (Non-African American) 94.6 ml/min; Globulin 3.2 gm/dl (2.5-4.0); Potassium 4.5 mmol/L (3.5-5.1)
[2023-03-21] MEDS: IPRATROPIUM BROMIDE NASAL SPRAY 0.06% 15ML NAE SCH ×2 (08:58→21:30)
[2023-03-21] MEDS: PANTOprazole 40 MG in SYRINGE 0 ML IV SCH (08:58)
[2023-03-21] MEDS: FLUTICASONE PROPIONATE NA SPR 16 GM BTL SCH (08:59)
[2023-03-21] MEDS: ENOXAPARIN INJ 40 MG/0.4 ML SYR SQ SCH (08:59)
[2023-03-21] MEDS ORDERED: PIPERACILLIN/TAZOBACTAM 4.5 GM in DEXTROSE 5% MINI-B 100 ML IV ONE (09:00)
[2023-03-21 09:04] LABS: Appearance Urine Clear (Clear); Bacteria Urine Automated Negative (Negative); Bilirubin Urine Negative (Negative); Blood Urine Trace (Negative); Color Urine Yellow; Epithelial Cell Urine Auto 20-30 /lpf (0-5); Glucose Urine UA Negative (Negative); Ketones Urine Negative (Negative); Leukocyte Esterase Urine Negative (Negative); Nitrite Urine Negative (Negative); Specific Gravity Urine 1.015 (1.000-1.030); Urobilinogen Urine Negative (Negative); pH Urine 7.5 (4.5-7.5)
[2023-03-21 09:10] LABS: Protein Urine Trace (Negative)
[2023-03-21] MEDS: amLODIPine BESYLATE 5 MG TAB PO SCH (10:07)
[2023-03-21] MEDS: POLYETHYLENE (MIRALAX) 17 GM PACK PO SCH (10:07)
[2023-03-21] MEDS: DOCUSATE SODIUM/SENNA 50/8.6MG TAB PO SCH ×2 (10:07→21:29)
[2023-03-21] MEDS: ASPIRIN 325 MG ECTAB PO SCH (10:07)
[2023-03-21] MEDS: FAMOTIDINE 20 MG TAB PO SCH ×2 (10:07→21:29)
[2023-03-21] MEDS: SODIUM CHLORIDE 1 GM TABLET PO SCH ×2 (10:08→21:29)
[2023-03-21] MEDS: TOCOPHERYL, DL-ALPHA 400 UNITS 180 MG CAP PO SCH (11:35)
[2023-03-21] MEDS: CALCIUM 600MG + VIT D 400 IU TAB PO SCH (11:35)
[2023-03-21] MEDS: MULTIVITAMIN TAB PO SCH (11:35)
[2023-03-21 12:15] LABS: Appearance CSF Clear; CSF Count Tube # 3; CSF Xanthrochromic No xanthochromia; Color CSF Colorless; Red Blood Cell CSF Manual 1 (0-); White Blood Cell CSF Manual 6 (0-5)
[2023-03-21 12:16] LABS: Total Protein CSF 41.1 mg/dl (15-45)
[2023-03-21 13:24] LABS: Cryptococcus neoformans/ga PCR Not Detected (NotDetected); Cytomegalovirus PCR Not Detected (NotDetected); Enterovirus PCR Not Detected (NotDetected); Escherichia coli K1 PCR Not Detected (NotDetected); Haemophilius influenzae PCR Not Detected (NotDetected); Herpes Simplex Virus 1 PCR Not Detected (NotDetected); Herpes Simplex Virus 2 PCR Not Detected (NotDetected); Human Herpes Virus 6 PCR Not Detected (NotDetected); Human Parechovirus PCR Not Detected (NotDetected); Listeria monocytogenes PCR Not Detected (NotDetected); Neisseria meningitidis PCR Not Detected (NotDetected); Streptococcus agalactiae PCR Not Detected (NotDetected); Streptococcus pneumoniae PCR Not Detected (NotDetected); Varicella Zoster Virus PCR Not Detected (NotDetected)
[2023-03-21] MEDS: PIPERACILLIN/TAZOBACTAM 4.5 GM in DEXTROSE 5% MINI-B 100 ML IV SCH ×2 (14:27→23:34)
--- NOTE | 2023-03-21 15:29 | Fluoroscopy Report ---
Lumbar puncture under fluoroscopy INDICATION: Weakness rule out Guillain-[place] PROCEDURE: Procedure and risks were explained. Informed consent was obtained over the phone. A final timeout was completed. The patient was placed prone on the fluoroscopic examination table. The lower lumbar region was prepped and draped in sterile fashion. 1% lidocaine was utilized for skin anesthesi a. Utilizing fluoroscopic guidance, a 22-gauge spinal needle was advanced into the intrathecal space at the L2-3 disc space level. 2 permanent spot images were obtained. Approximately 8 mL of clear CSF flu id was removed and sent to lab for analysis. The needle was removed and Band-Aid applied. The patient tolerated the procedure well. Vital signs will be monitored post procedure. Total fluoroscopy time 0 .55 minutes. DAP is 11.4 mcGy/m2. IMPRESSION: Lumbar puncture as above. Performed, dictated, and signed by Richard Trevizo PA-C; to be co-signed by Dr. Paul Wallace. Electronically signed by: Paul Wallace M.D. 03/22/2023 9:09 AM
--- NOTE | 2023-03-21 17:33 | Hospitalist Progress Note ---
Date of Service March 21, 2023 Assessment & Plan (1) Weakness: Plan: per GRAYSON Chacha Dee's notes with addendum: 77-year-old female with past medical history significant for mild intermittent asthma, hypertension, irritable bowel syndrome, GERD, chronic interstitial cystitis without hematuria, generalized osteoarthritis, memory disturbance, factor V Leiden mutation, history of CVA, hyponatremia, history of DVT comes because of weakness. Patient was recently diagnosed COVID on March 01 and got admitted and was discharged on March 03. Patient states after going home she was fine for few days. Then she was feeling very weak and tired. Not able to ambulate much. Legs are sore. This reason she came back today. Thinks she might have low-grade fever. A week ago she had some chest discomfort that got resolved. Appetite is okay. No headache. Vision is okay. No runny nose or sore throat. No cough. No shortness of breath. No abdominal pain. Normal bowel and bladder movements. Generalized weakness likely secondary to COVID-19 virus infection COVID test has been positive on 03/01/2023 and again 03/11/2023 during this admission Reassured and will get PT OT evaluation She has been improving these last 2 days Neuro feels no further w/u needed likely all in setting of illness and deconditioning Plan Show profound generalized weakness Signs of possible aspiration this morning Neurologist reconsulted Recommend lumbar puncture-will be performed tomorrow per radiology department Check CK level: Normal Check CRP, ferritin, procalcitonin: CRP 24, start remdesivir 03/21 Seems to be clinically improving today Still on the weak side Status post lumbar puncture WBC, glucose, protein within normal limits Follow-up cultures Empiric remdesivir day #2 ID consult Speech therapy evaluation: Advance to clears Formal eval tomorrow Continue IV fluids Fever infectious w/u in place due to elevated temp x 2 and lethargy CXR and UA negative and reassuring blood cultures negative thus far vanco/cefepime/Doxy on board lyme tested and negative Pt has been on antibiotics 48hrs - given no signs of infection will hold off on antibiotics and monitor 03/20 cultures negative afebrile, off antibiotics since 3 days ago Repeat urine, blood cultures 03/21 Positive fever this morning Chest x-ray: No pneumonia Urine analysis: Negative Blood cultures: Pending Empiric daptomycin plus Zosyn restarted ID consulted COVID 19 virus infection Remains asymptomatic otherwise but very weak COVID precautions Does not require any more COVID precautions she is about 14 days out of initial COVID infection Remdesivir added in light of elevated CRP Right upper ext edema US:IMPRESSION: No venous thrombus within the right upper extremity. History of asthma Continue home inhalers No acute symptoms Hypertension On amlodipine bp stable GERD Omeprazole History of hyponatremia On salt tablets Na stable at 133 History of factor V Leyden deficiency History of DVT Seems current not on anticoagulation Needs follow-up Bowel Prophylaxis no BM since admission daily miralax and Senna S BID DVT prophylaxis Lovenox Admission and Anticipated Discharge Date Admission Date: March 11, 2023 Subjective Follow-up for weakness, COVID-19 infection, etc. Seen resting in bed, comfortable, not distressed More awake and alert today Follow simple commands, able to raise arms Able to push my hand with his feet no chest pain, dyspnea, palpitations, dizziness No new focal neurologic symptoms No other new symptom Review of Systems Review of Systems: all noted and negative except for above Physical Exam Physical Exam: General- oriented x 3, not in distress, speaks in sentences with no effort or accessory muscle use Eyes- anicteric Neck- no JVD Lungs- clear breath sounds bilaterally, no crackles or wheezing Heart- normal rate, regular rhythm; no murmurs Abdomen- normal bowel sounds, nondistended, soft, no tenderness Extremities- no pretibial edema, no calf tenderness Neuro- alert, oriented x 3; no gross focal neurologic deficits Skin- warm & dry Results & Data Results & Data Vital Signs (Past 12 Hours) Vital Signs Temp Pulse Resp BP Pulse Ox O2 Del Method 03/21/23 15:44 36.7 C 93 H 20 147/84 H 96 Room Air 03/21/23 10:16 36.7 C 03/21/23 08:36 37.9 C H 03/21/23 07:59 38.4 C H 98 H 16 153/79 H 96 Room Air 03/21/23 07:30 Room Air all noted and reviewed including below
[2023-03-21] MEDS: REMDESIVIR 100 MG in SODIUM CHLORIDE 0.9% 230 ML IV SCH (21:25)
[2023-03-21] MEDS: MONTELUKAST SODIUM 10 MG TABLET PO SCH (21:29)
[2023-03-22] MEDS: PIPERACILLIN/TAZOBACTAM 4.5 GM in DEXTROSE 5% MINI-B 100 ML IV SCH ×3 (05:16→21:25)
[2023-03-22] MEDS: ACETAMINOPHEN 325 MG TAB PO PRN (05:38)
[2023-03-22 06:34] LABS: Basophils # (auto) 0.06 K/uL (0.00-0.20); Basophils % (auto) 0.5 %; Eosinophils # (auto) 0.13 K/uL (0.00-0.50); Hematocrit (blood only) 32.4 % (37.0-47.0); Hemoglobin 10.5 g/dl (12.0-16.0); Immature Granulocytes # (auto) 0.25 K/uL (0.01-0.20); Immature Granulocytes % (auto) 1.9 %; Lymphocytes # (auto) 1.79 K/uL (1.20-3.40); Mean Corpuscular Hemoglobin 27.4 pg (25.0-34.0); Mean Corpuscular Hgb Conc 32.4 g/dL (32.0-36.0); Mean Corpuscular Volume 84.6 fL (80.0-100.0); Mean Platelet Volume 10.6 fL (9.4-12.4); Monocytes # (auto) 1.98 K/uL (0.11-0.59); Monocytes % (auto) 15.4 %; Neutrophils # (auto) 8.62 K/uL (1.40-6.50); Neutrophils % (auto) 67.2 %; Platelet Count 387 K/uL (130-400); RDW Standard Deviation 43.4 fL (36.4-46.3); Red Blood Count 3.83 M/uL (4.20-5.40); White Blood Count 12.83 K/ul (4.8-10.8)
[2023-03-22 07:11] LABS: Albumin Globulin Ratio 0.8 (0.9-2); Albumin Level 2.5 gm/dl (3.4-5.0); BUN Creatinine Ratio 19.6 (10-20); Bilirubin,Total 0.4 mg/dl (0.2-1.0); Calcium 7.7 mg/dl (8.6-10.3); Creatinine Clr Calc Pharmacy 90.1 ml/min; Est GFR (Non-African American) 90.6 ml/min; Globulin 3.1 gm/dl (2.5-4.0); Potassium 4.1 mmol/L (3.5-5.1); Total Protein 5.6 gm/dl (6.0-8.3)
[2023-03-22] MEDS: D5NSS + 20MEQ KCL 20 MEQ/1,000 ML BAG IV SCH ×2 (07:53→21:16)
[2023-03-22] MEDS: ENOXAPARIN INJ 40 MG/0.4 ML SYR SQ SCH (08:48)
[2023-03-22] MEDS: DOCUSATE SODIUM/SENNA 50/8.6MG TAB PO SCH ×2 (08:53→20:50)
[2023-03-22] MEDS: FAMOTIDINE 20 MG TAB PO SCH ×2 (08:53→20:50)
[2023-03-22] MEDS: ASPIRIN 325 MG ECTAB PO SCH (08:53)
[2023-03-22] MEDS: FLUTICASONE PROPIONATE NA SPR 16 GM BTL SCH (08:53)
[2023-03-22] MEDS: amLODIPine BESYLATE 5 MG TAB PO SCH (08:53)
[2023-03-22] MEDS: POLYETHYLENE (MIRALAX) 17 GM PACK PO SCH (08:53)
[2023-03-22] MEDS: SODIUM CHLORIDE 1 GM TABLET PO SCH ×2 (08:53→20:50)
[2023-03-22] MEDS ORDERED: DAPTOmycin 400 MG in SYRINGE 0 ML IV SCH (09:15)
[2023-03-22 09:16] LABS: C Reactive Protein 29.79 mg/dl (0-0.5)
[2023-03-22] MEDS: IPRATROPIUM BROMIDE NASAL SPRAY 0.06% 15ML NAE SCH ×2 (10:36→20:50)
[2023-03-22] MEDS: ACETAMINOPHEN 1,000 MG/100 ML VIAL IV PRN (13:21)
[2023-03-22] MEDS: MULTIVITAMIN TAB PO SCH (13:54)
[2023-03-22] MEDS: TOCOPHERYL, DL-ALPHA 400 UNITS 180 MG CAP PO SCH (13:54)
[2023-03-22] MEDS: CALCIUM 600MG + VIT D 400 IU TAB PO SCH (13:54)
[2023-03-22] MEDS: PANTOprazole 40 MG in SYRINGE 0 ML IV SCH (13:54)
--- NOTE | 2023-03-22 15:11 | Neurology Progress Note ---
Date of Service March 22, 2023 Assessment & Plan (1) Lethargy: Lethary in a 77F with a PMH of recent COVID 19 infection, HTN, prior DVT and spinal stenosis. On exam she is lethargic and follows simple commands. There is no clear focality to her exam/position may be issue By report she has had similar (less severe) episodes in the past with immunizations. GBS is ruled out due to low proteins in the CSF, CSF is also negative for infections Stroke or cervical spinal pathology, another potential cause could be post-COVID 19 fatigue or an underlying muscle disorder. Plan -- MRI of the brain without contrast, MRI of the C-spine with contrast Myasthenia gravis antibodies Subjective Telehealth Information I performed this visit using a real-time telehealth connection between my location and the patients location ([facility]). After connecting through interactive tele-video, patient was identified by name and date of and/or wristband check.Patient (or authorized healthcare employer relations representative) was informed that this was a telemedicine visit and it was being conducted confidentially over secure lines. My office door was closed and no one else was present in the room with me.Patient (or authorized healthcare employer relations representative) provided consent to proceed with the visit, expressed an understanding of privacy and security of the telemedicine visit, and gave permission to have a hospital employer relations representative in the room in order to assist with the visit and to conduct portions of the visit, as needed. I informed the patient (or authorized healthcare employer relations representative) that I reviewed their record and presented the opportunity for them to ask any questions regarding the visit today. The patient agreed to participate. Initially she was doing a bit better and then overnight on 03/18 she had a fever and was started on broad spectrum antibiotics but when no infectious source was found the antibiotics were stopped. yesterday she was able to order her food and feed herself. Today she is very lethargic, and minimally responsive. Today 03/22/2023: The patient remains weak and unable to use utensils to eat, was restarted on remdesivir 2 days ago. Was febrile her right arm appears to be weaker / vs positioning , head turned to the right , however she does not have any distal weakness. She is not oriented able to answer her name Review of Systems Cannot be obtained Physical Exam General NEUROLOGIC EXAMINATION: Mental Status:alert, oriented to, place, , does not answer multiple questions was able to count to 20 without losing her breath Cranial Nerves: CN 2 - no visual defect on confrontation and pupils round, equal, reactive to light CN 3, 4, 6 - extra-ocular movements intact and no nystagmus CN 5 - facial sensation intact CN 7 - no facial asymmetry CN 8 - intact hearing CN 9, 10 - palate symmetric, normal gag CN 11 - good shoulder shrug CN 12 - tongue midline MOTOR: She can move her left arm up high, less over the right arm, can wiggle both toes, and flex both knees weakly, the right arm: Could not lift it however she has preserved distal strength SENSATION: intact and symmetric to pinprick, light touch, vibration and joint position GAIT: stable, no ataxia and can perform tandem walking COORDINATION: Did not participate REFLEXES: cannot assess over telemedicine Results & Data Vital Signs (Past 12 Hours) Vital Signs Temp Pulse Resp BP Pulse Ox O2 Del Method 03/22/23 13:13 38 C H 03/22/23 06:25 36.5 C 03/22/23 06:12 38.3 C H 87 20 139/79 94 Room Air Laboratory Results Laboratory Results - last 24 hr 03/22/23 06:18 WBC 12.83 H RBC 3.83 L Hgb 10.5 L Hct 32.4 L MCV 84.6 MCH 27.4 MCHC 32.4 RDW Std Deviation 43.4 RDW Coeff of Chrissie 14.0 Plt Count 387 MPV 10.6 Immature Gran % (Auto) 1.9 Neut % (Auto) 67.2 Lymph % (Auto) 14.0 [place] % (Auto) 15.4 Eos % (Auto) 1.0 Baso % (Auto) 0.5 Neut # (Auto) 8.62 H Lymph # (Auto) 1.79 [place] # (Auto) 1.98 H Eos # (Auto) 0.13 Baso # (Auto) 0.06 Immature Gran # (Auto) 0.25 H Sodium 134 L Potassium 4.1 Chloride 104 Carbon Dioxide 23 Anion Gap 7 BUN 11 Creatinine 0.56 L Est Cr Clr Drug Dosing 90.1 Est GFR ( Amer) 105.0 Est GFR (Non-Af Amer) 90.6 BUN/Creatinine Ratio 19.6 Glucose 134 H Calcium 7.7 L Total Bilirubin 0.4 AST 16 ALT 21 Alkaline Phosphatase 64 C-Reactive Protein 29.79 H Total Protein 5.6 L Albumin 2.5 L Globulin 3.1 Albumin/Globulin Ratio 0.8 L Diagnostic Findings Lumbar Puncture 03/21/23 07:45 Lumbar puncture under fluoroscopy INDICATION: Weakness rule out Guillain-[place] PROCEDURE: Procedure and risks were explained. Informed consent was obtained over the phone. A final timeout was completed. The patient was placed prone on the fluoroscopic examination table. The lower lumbar region was prepped and draped in sterile fashion. 1% lidocaine was utilized for skin anesthesia. Utilizing fluoroscopic guidance, a 22-gauge spinal needle was advanced into the intrathecal space at the L2-3 disc space level. 2 permanent spot images were obtained. Approximately 8 mL of clear CSF fluid was removed and sent to lab for analysis. The needle was removed and Band-Aid applied. The patient tolerated the procedure well. Vital signs will be monitored post procedure. Total fluoroscopy time 0.55 minutes. DAP is 11.4 mcGy/m2. IMPRESSION: Lumbar puncture as above. Performed, dictated, and signed by Richard Trevizo PA-C; to be co-signed by Dr. Paul Wallace. Electronically signed by: Paul Wallace M.D. 03/22/2023 9:09 AM
--- NOTE | 2023-03-22 15:57 | Hospitalist Progress Note ---
Date of Service March 22, 2023 Assessment & Plan (1) Weakness: Plan: per GRAYSON Chacha Dee's notes with addendum: 77-year-old female with past medical history significant for mild intermittent asthma, hypertension, irritable bowel syndrome, GERD, chronic interstitial cystitis without hematuria, generalized osteoarthritis, memory disturbance, factor V Leiden mutation, history of CVA, hyponatremia, history of DVT comes because of weakness. Patient was recently diagnosed COVID on March 01 and got admitted and was discharged on March 03. Patient states after going home she was fine for few days. Then she was feeling very weak and tired. Not able to ambulate much. Legs are sore. This reason she came back today. Thinks she might have low-grade fever. A week ago she had some chest discomfort that got resolved. Appetite is okay. No headache. Vision is okay. No runny nose or sore throat. No cough. No shortness of breath. No abdominal pain. Normal bowel and bladder movements. Generalized weakness likely secondary to COVID-19 virus infection COVID test has been positive on 03/01/2023 and again 03/11/2023 during this admission Initially, patient's generalized weakness was improving, was able to eat and walking around the her bed with physical therapy Neuro feels no further w/u needed likely all in setting of illness and deconditioning Starting Tuesday, patient developed generalized weakness again On Tuesday, was showing profound generalized weakness, Signs of possible aspiration Neurologist reconsulted Recommend lumbar puncture and check CK level Status post lumbar puncture WBC, glucose, protein within normal limits Gram stain: Gram-positive cocci Positive fever starting yesterday-daptomycin plus Zosyn started Remdesivir also started given patient's increased CRP Chest x-ray: No pneumonia Urine analysis: Negative Blood cultures: Pending Today, patient is more awake and alert but still having generalized weakness, fever Continue IV daptomycin, Zosyn, remdesivir Awaiting neurology and infectious disease recommendation Speech therapy evaluation: Recommend n.p.o. status given patient's generalized weakness Coach Driver consulted for possible initiation of tube feeding via core safe Continue IV fluids Empiric daptomycin plus Zosyn restarted ID consulted COVID 19 virus infection Remains asymptomatic otherwise but very weak COVID precautions Does not require any more COVID precautions she is about 14 days out of initial COVID infection Remdesivir added in light of elevated CRP Right upper ext edema US:IMPRESSION: No venous thrombus within the right upper extremity. History of asthma Continue home inhalers No acute symptoms Hypertension On amlodipine bp stable GERD Omeprazole History of hyponatremia On salt tablets Na stable at 133 History of factor V Leyden deficiency History of DVT Seems current not on anticoagulation Needs follow-up Bowel Prophylaxis no BM since admission daily miralax and Senna S BID DVT prophylaxis Lovenox Disposition Will need detention facility when medically stable for discharge plan of care discussed with patient in detail and at length all questions answered she is understanding, agreeable, comfortable with the plan of care Admission and Anticipated Discharge Date Admission Date: March 11, 2023 Subjective Follow-up for generalized weakness, etc. Seen resting in bed, comfortable, not in distress, but still very weak Awake and alert, answers simple questions appropriately, smiling Follow simple commands Patient's at bedside visiting Denies cough, shortness of breath, chest pain Denies abdominal pain, nausea vomiting Denies back pain, neck pain, headache No other symptoms Review of Systems Review of Systems: all noted and negative except for above Physical Exam Physical Exam: General- oriented x 3, not in distress, speaks in sentences with no effort or accessory muscle use Appears very weak Eyes- anicteric Neck- no JVD Lungs- clear breath sounds bilaterally, no rales/wheezes Heart- normal rate, regular rhythm; no murmurs Abdomen- normal bowel sounds, nondistended, soft, nontender Extremities- no pretibial edema, no calf tenderness Neuro- alert, oriented x 3; no gross focal neurologic deficits Skin- warm & dry Results & Data Results & Data Vital Signs (Past 12 Hours) Vital Signs Temp Pulse Resp BP Pulse Ox O2 Del Method 03/22/23 13:13 38 C H 03/22/23 06:25 36.5 C 03/22/23 06:12 38.3 C H 87 20 139/79 94 Room Air
--- NOTE | 2023-03-22 17:39 | Infectious Disease Consult ---
Date of Service March 22, 2023 Telehealth Information I performed this visit using a real-time telehealth connection between my location and the patients location ([facility]). After connecting through interactive tele-video, patient was identified by name and date of and/or wristband check.Patient (or authorized healthcare architectural representative) was informed that this was a telemedicine visit and it was being conducted confidentially over secure lines. My office door was closed and no one else was present in the room with me.Patient (or authorized healthcare architectural representative) provided consent to proceed with the visit, expressed an understanding of privacy and security of the telemedicine visit, and gave permission to have a hospital architectural representative in the room in order to assist with the visit and to conduct portions of the visit, as needed. I informed the patient (or authorized healthcare architectural representative) that I reviewed their record and presented the opportunity for them to ask any questions regarding the visit today. The patient agreed to participate. Assessment & Plan (1) Lethargy: Plan: I cannot explain the patient's persistent symptoms. Until the organism in the CSF has been identified, I would use TRACER CLERK-dosed ABX (vancomycin plus ceftriaxone/cefepime plus ampicillin). However, my suspicion for a true bacterial meningitis is low. If she had a typical organism (eg pneumococcus) I suspect that she would be much sicker. For completeness, I would order: CT A/P, HIV Ag/AB, CSF VDRL, syphilis screen, fungal BCX, Legionella uAG. The remainder of the AMS workup will be deferred to Neurology. If the patient decompensates, page ID. The above recommendations are not final. ID coverage changes frequently. Use the on-call schedule to find out who is covering your facility. Then, contact ID for updated recommendations. History of Present Illness History of Present Illness The patient tested positive for COVID in February 2023. 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 Per the discharge summary, PT/OT recommended rehab but the patient refused and elected to return home. Once at home, the patient continued to be generally weak. She was re- admitted. Neurology was consulted on 03/16. They initially attributed her weakness to deconditioning. On follow up, they recommended an LP (03/20). Until the LP was completed, all cultures were negative. Chest imaging was also negative. The CSF is currently growing GPC. The patient is being treated with daptomycin and Zosyn. Allergies Allergy/AdvReac Type Severity Reaction Status Date / Time indomethacin Allergy Intermediate "FEEL Verified 03/11/23 19:19 STRANGE AND OUT OF IT" adhesive Allergy Mild RASH WITH Verified 03/11/23 19:19 EXTENDED USE bacitracin Allergy Mild RASH Verified 03/11/23 19:19 latex Allergy Mild RASH WITH Verified 03/11/23 19:19 LONGER EXPOSURE neomycin Allergy Mild RASH Verified 03/11/23 19:19 polymyxin B Allergy Mild RASH Verified 03/11/23 19:19 Sulfa (Sulfonamide Allergy Mild RASH Verified 03/11/23 19:19 Antibiotics) Home Medications Medication Instructions Recorded Confirmed Type aspirin 325 mg tablet 325 mg PO QAM 05/23/18 03/11/23 History calcium carbonate 600 mg-vitamin 1 cap PO QDL 05/23/18 03/11/23 History D3 62.5 mcg (2,500 unit) capsule esomeprazole magnesium 40 mg 40 mg PO DAILYBB 05/23/18 03/11/23 History capsule,delayed release (Nexium) ipratropium bromide 21 mcg (0.03 2 sprays intranasal BID 05/23/18 03/11/23 History %) nasal spray montelukast 10 mg tablet 10 mg PO HS 05/23/18 03/11/23 History (Singulair) multivitamin 1 tab PO QDL 05/23/18 03/11/23 History vitamin E 268 mg (400 unit) capsule 400 unit PO QDL 01/26/19 03/11/23 History calcium carbonate 400 mg calcium 400 mg PO DIRECTED PRN Gi Upset 05/10/19 03/11/23 History (1,000 mg) chewable tablet (Tums Ultra) fluticasone propionate 50 2 spray intranasal QAM 07/29/20 03/11/23 History mcg/actuation nasal spray,suspension amlodipine 2.5 mg tablet 2.5 mg PO QAM #90 tabs 12/06/22 03/11/23 Rx acetaminophen 500 mg tablet 500 mg PO DIRECTED PRN Pain 03/01/23 03/11/23 History (Tylenol Extra Strength) albuterol sulfate 90 mcg/actuation 2 puff inhalation QID PRN 03/01/23 03/11/23 History aerosol inhaler (ProAir HFA) Shortness Of Breath Or Wheezing famotidine 20 mg tablet 20 mg PO BID 03/01/23 03/11/23 History meclizine 25 mg tablet 25 mg PO HS PRN dizzyness 03/01/23 03/11/23 History ondansetron 4 mg disintegrating 4 mg translingual Q8 PRN Nausea 03/01/23 03/11/23 History tablet trolamine salicylate 10 % topical 1 applic topical BID PRN Pain 03/01/23 03/11/23 History cream (Aspercreme) sodium chloride 1,000 mg soluble 1,000 mg PO BID 03/11/23 03/11/23 History tablet Patient History Medical History Asthma pt reports rare use of PRN inh Hyponatremia following with Dr. Tsang Diarrhea Transient ischemic attack (TIA) 02/08/2012 (NO CURRENT PROBLEMS) Hyperlipidemia Chronic pain of left knee Osteoarthritis History of colitis Factor V Leiden Spinal stenosis DVT (deep venous thrombosis) LEFT LEG (WAS TAKING WARFARIN 2011) GERD (gastroesophageal reflux disease) HTN (hypertension) Surgical History History of bilateral tubal ligation History of esophagogastroduodenoscopy (EGD) History of colonoscopy History of tooth extraction History of cataract surgery RT/LEFT S/P wrist surgery LEFT History of surgery on arm RT ARM Family History Mother Family history of diabetes mellitus Aunt Family hx of colon cancer Other No family history of adverse response to anesthesia Social History Smoking Status: Never smoker Second Hand Exposure: No; Do You Dip or Chew Tobacco: No; Hx Alcohol Use: No Hx Substance Use: No Preferred Language: Ecuadorean Communication Ability: Effective Visual Impairment: No Limitations Hearing Ability: Normal Crystal Calibrator Required: No Beliefs That Will Affect Care: None marital status: Current Living Situation: Spouse Current Living Situation Comment: house current occupational status: retired Feels Safe at Home: Yes Assistive Devices: Cane Review of Systems Unable to obtain from patient. Per at bedside, no other complaints. Physical Exam Vitals: see EMR Exam limited due to constraints of telemedicine Gen/Constitutional: appears at stated age, NAD, nontoxic Head: AT, NC Eyes: sclera anicteric, no conjunctival injection ENT: trachea midline Card: appears to be well-perfused Resp: not tachypneic, nml effort, symmetric chest rise, no accessory muscle use Derm: no visible diaphoresis, no visible rash, no visible jaundice Neuro: not interactive with examiner Results & Data Vital Signs (Past 12 Hours) Vital Signs Temp Pulse Resp BP BP Pulse Ox O2 Del Method 03/22/23 16:33 37.0 C 81 16 122/71 94 Room Air 03/22/23 13:13 38 C H 03/22/23 06:25 36.5 C 03/22/23 06:12 38.3 C H 87 20 139/79 94 Room Air Laboratory Results Reviewed; see EMR Diagnostic Findings Reviewed; see EMR
[2023-03-22] MEDS: MONTELUKAST SODIUM 10 MG TABLET PO SCH (20:50)
[2023-03-22] MEDS: REMDESIVIR 100 MG in SODIUM CHLORIDE 0.9% 230 ML IV SCH (21:30)
--- NOTE | 2023-03-22 22:31 | Magnetic Resonance Report ---
Exam(s): MRI C SPINE EXAM: MR Cervical Spine Without Intravenous Contrast CLINICAL HISTORY: Reason for exam: generalized weakness. TECHNIQUE: Magnetic resonance images of the cervical spine without intravenous contrast in multiple planes. Moderate motion artifact. COMPARISON: Cervical spine x-ray 04/21/2009. FINDINGS: Vertebrae: Normal, smooth curvature. No marrow edema, discitis or osteomyelitis. No compression deformity. Spinal cord: No abnormal signal. Motion artifact limits detail. Soft tissues: Moderate prevertebral edema centered at C3-4. Moderate diffuse edema in the muscles bilaterally, including multifidus and semispinalis, with interspinous ligamentous edema. Findings are nonspecific, may be posttraumatic or inflammatory/infectious. No epidural abscess. DISCS/SPINAL CANAL/NEURAL FORAMINA: C2-C3: Mild degenerative disc disease. C3-C4: Moderate narrowing, circumferential disc and osteophyte, no central spinal stenosis. C4-C5: Moderate to severe narrowing, circumferential disc and osteophyte, borderline central spinal stenosis and severe left foraminal stenosis. C5-C6: Moderate to severe narrowing, circumferential disc and osteophyte, borderline central spinal stenosis and severe bilateral foraminal stenosis. C6-C7: Moderate to severe narrowing, circumferential disc and osteophyte, borderline central spinal stenosis and severe bilateral foraminal stenosis. C7-T1: Mild degenerative disc disease. OTHER: No isolated disc herniation. Facet joint fairly well-preserved. IMPRESSION: 1. Moderate prevertebral edema, intramuscular edema in the posterior muscles, and interspinous ligamentous edema, nonspecific, may be inflammatory/infectious or posttraumatic. 2. No epidural abscess or abnormal cord signal. 3. Borderline central spinal stenosis C4-5, C5-6 and C6-7, degenerative. Communications: Call Doctor Above results Electronically signed by: Capri Bingham M.D. 03/22/23 22:29 PM
--- NOTE | 2023-03-22 22:32 | Magnetic Resonance Report ---
Exam(s): MRI HEAD Without Contrast EXAM: MR Head Without Intravenous Contrast CLINICAL HISTORY: Reason for exam: generalized weakness. TECHNIQUE: Magnetic resonance images of the head/brain without intravenous contrast in multiple planes. Mild motion artifact. COMPARISON: Head CT 03/11/23 and MRI brain 02/07/11. FINDINGS: Brain: No mass effect or acute infarct. No acute hemorrhage. Mild atrophy and chronic white matter disease. Ventricles: No hydrocephalus or midline shift. Bones/joints: No acute bony lesion. Soft tissues: No scalp hematoma. Sinuses: Clear. Mastoid air cells: No mastoid effusion. IMPRESSION: 1. Mild age-related findings. 2. No acute infarct, bleed, or acute intracranial abnormality. Electronically signed by: Capri Bingham M.D. 03/22/23 22:30 PM
--- NOTE | 2023-03-22 22:32 | CT Scan Report ---
Exam(s): CT ABDOMEN + PELVIS Without Contrast EXAM: CT Abdomen and Pelvis Without Intravenous Contrast CLINICAL HISTORY: Reason for exam: r/o intraabdominal infection. TECHNIQUE: Axial computed tomography images of the abdomen and pelvis without intravenous contrast. CTDI is 36 mGy and DLP is 1690.56 mGy-cm. Automated exposure control was utilized for the study. A dose lowering technique was utilized adhering to the principles of ALARA. COMPARISON: CT abdomen pelvis 11/23/10, and MRI abdomen 10/30/21. FINDINGS: Lung bases: Mild right pleural effusion and basilar infiltrate, nonspecific, possible pneumonia. Similar minimal findings left lower lobe. Liver: Unremarkable. Gallbladder and bile ducts: Mildly distended gallbladder, no surrounding inflammation. No ductal dilation. Pancreas: No ductal dilation. Spleen: Unremarkable. Adrenals: Unremarkable. Kidneys and ureters: Subtle right perinephric edema, nonspecific, cannot rule out pyelonephritis on this noncontrast exam. No perinephric abscess, renal stone or hydronephrosis. Stomach and bowel: Mild fecal impaction in the rectum, with mild presacral edema that is nonspecific, cannot rule out proctitis or stercoral colitis. Fluid levels in the right colon are nonspecific, cannot rule out gastroenteritis or ileus. No obstruction. Appendix: Normal. Intraperitoneal space: No abscess, free air or fluid. Bones/joints: No acute fracture. Soft tissues: Unremarkable. Vasculature: No aortic aneurysm. Lymph nodes: No enlarged lymph nodes. Bladder: No stones. Reproductive: Unremarkable as visualized. IMPRESSION: 1. Subtle right perinephric edema is nonspecific, cannot rule out right pyelonephritis, correlate clinically and with labs. 2. Possible proctitis or stercoral colitis. 3. Possible mild gastroenteritis or ileus. 4. Bibasilar infiltrates and pleural effusion, greater on the right, are nonspecific, cannot rule out pneumonia. 5. Normal appendix. Electronically signed by: Capri Bingham M.D. 03/22/23 22:31 PM
[2023-03-23] MEDS ORDERED: VANCOMYCIN CONSULT ACTIVE PRN (00:03)
[2023-03-23] MEDS ORDERED: AMPICILLIN SOD 1 GM VIAL IV SCH (00:15)
[2023-03-23] MEDS: AMPICILLIN 2,000 MG in SODIUM CHLOR 0.9% MINI-B 100 ML IV SCH ×6 (01:31→20:56)
[2023-03-23] MEDS ORDERED: amLODIPine BESYLATE 5 MG TAB PO ONE (03:43)
[2023-03-23] MEDS ORDERED: VANCOMYCIN HCL 1,750 MG in SODIUM CHLORIDE 0.9% 500 ML IV ONE (04:00)
[2023-03-23] MEDS: cefTRIAXone SODIUM 2,000 MG in DEXTROSE 5 % MINI-B 50 ML IV SCH ×2 (06:23→17:13)
[2023-03-23 06:45] LABS: Basophils # (auto) 0.05 K/uL (0.00-0.20); Basophils % (auto) 0.5 %; Eosinophils # (auto) 0.46 K/uL (0.00-0.50); Eosinophils % (auto) 4.7 %; Hematocrit (blood only) 32.5 % (37.0-47.0); Hemoglobin 10.3 g/dl (12.0-16.0); Immature Granulocytes # (auto) 0.21 K/uL (0.01-0.20); Immature Granulocytes % (auto) 2.1 %; Lymphocytes # (auto) 1.69 K/uL (1.20-3.40); Lymphocytes % (auto) 17.2 %; Mean Corpuscular Hgb Conc 31.7 g/dL (32.0-36.0); Mean Corpuscular Volume 85.3 fL (80.0-100.0); Mean Platelet Volume 9.8 fL (9.4-12.4); Monocytes % (auto) 13.2 %; Neutrophils # (auto) 6.11 K/uL (1.40-6.50); Neutrophils % (auto) 62.3 %; Platelet Count 451 K/uL (130-400); RDW Coefficient of Variation 13.9 % (11.5-14.5); RDW Standard Deviation 43.8 fL (36.4-46.3); Red Blood Count 3.81 M/uL (4.20-5.40); White Blood Count 9.82 K/ul (4.8-10.8)
[2023-03-23 07:14] LABS: Albumin Globulin Ratio 0.8 (0.9-2); Albumin Level 2.5 gm/dl (3.4-5.0); Bilirubin,Total 0.4 mg/dl (0.2-1.0); Calcium 7.7 mg/dl (8.6-10.3); Creatinine Clr Calc Pharmacy 112.2 ml/min; Est GFR (African American) 112.8 ml/min; Est GFR (Non-African American) 97.3 ml/min; Globulin 3.2 gm/dl (2.5-4.0); Total Protein 5.7 gm/dl (6.0-8.3)
[2023-03-23 08:48] LABS: West Nile Virus, PCR Source CEREBROSPINAL FLUID
[2023-03-23] MEDS: ASPIRIN 325 MG ECTAB PO SCH (10:10)
[2023-03-23] MEDS: DOCUSATE SODIUM/SENNA 50/8.6MG TAB PO SCH ×2 (10:10→21:25)
[2023-03-23] MEDS: FLUTICASONE PROPIONATE NA SPR 16 GM BTL SCH (10:11)
[2023-03-23] MEDS: FAMOTIDINE 20 MG TAB PO SCH (10:11)
[2023-03-23] MEDS: SODIUM CHLORIDE 1 GM TABLET PO SCH ×2 (10:11→21:25)
[2023-03-23] MEDS: POLYETHYLENE (MIRALAX) 17 GM PACK PO SCH (10:11)
[2023-03-23] MEDS: IPRATROPIUM BROMIDE NASAL SPRAY 0.06% 15ML NAE SCH ×2 (10:34→20:59)
[2023-03-23] MEDS: PANTOprazole 40 MG in SYRINGE 0 ML IV SCH (10:34)
[2023-03-23] MEDS: ENOXAPARIN INJ 40 MG/0.4 ML SYR SQ SCH (10:34)
[2023-03-23] MEDS: MULTIVITAMIN TAB PO SCH (10:35)
[2023-03-23] MEDS: D5NSS + 20MEQ KCL 20 MEQ/1,000 ML BAG IV SCH (10:35)
[2023-03-23] MEDS: TOCOPHERYL, DL-ALPHA 400 UNITS 180 MG CAP PO SCH (10:35)
[2023-03-23] MEDS: CALCIUM 600MG + VIT D 400 IU TAB PO SCH (10:35)
--- NOTE | 2023-03-23 10:42 | Hospitalist Progress Note ---
Date of Service March 23, 2023 Assessment & Plan (1) Weakness: Plan: Per Dr. Rodriguez w/ addendum 77 yo F with mild intermittent asthma, hypertension, irritable bowel syndrome, GERD, chronic interstitial cystitis without hematuria, generalized osteoarthritis, memory disturbance, factor V Leiden mutation, history of CVA, hyponatremia, history of DVT comes because of weakness. Patient was recently diagnosed COVID on March 01 and got admitted and was discharged on March 03. Patient states after going home she was fine for few days. Then she was feeling very weak and tired. Not able to ambulate much. Legs are sore. This reason she came back. Thinks she might have low-grade fever. A week ago she had some chest discomfort that got resolved. Generalized weakness likely secondary to COVID-19 virus infection COVID test has been positive on 03/01/2023 and again 03/11/2023 during this admission Initially, patient's generalized weakness was improving, was able to eat and walking around the her bed with physical therapy Neurology was consulted and felt no further w/u needed likely all in setting of illness and deconditioning Starting Tuesday, patient developed generalized weakness again On Tuesday, was showing profound generalized weakness, Signs of possible aspiration Neurologist re-consulted Recommend lumbar puncture and check CK level Status post lumbar puncture WBC, glucose, protein within normal limits Gram stain: Gram-positive cocci Positive fever starting on 03/21/23 -daptomycin plus Zosyn started Remdesivir also started given patient's increased CRP Chest x-ray: No pneumonia Urine analysis: Negative Blood cultures: Pending 03/22, patient is more awake and alert but still having generalized weakness, fever Continued IV daptomycin, Zosyn, remdesivir Neurology and infectious disease consulted Neurology (03/22) - Pedro in a 77F with a PMH of recent COVID 19 infection, HTN, prior DVT and spinal stenosis. On exam she is lethargic and follows simple commands. There is no clear focality to her exam/position may be issue By report she has had similar (less severe) episodes in the past with immunizations. GBS is ruled out due to low proteins in the CSF, CSF is also negative for infections Stroke or cervical spinal pathology, another potential cause could be post-COVID 19 fatigue or an underlying muscle disorder. Plan -- MRI of the brain without contrast, MRI of the C-spine with contrast Myasthenia gravis antibodies - pending Brain MRI - 1. Mild age-related findings. 2. No acute infarct, bleed, or acute intracranial abnormality. Cervical spine MRI - 1. Moderate prevertebral edema, intramuscular edema in the posterior muscles, and interspinous ligamentous edema, nonspecific, may be inflammatory/infectious or posttraumatic.2. No epidural abscess or abnormal cord signal.3. Borderline central spinal stenosis C4-5, C5-6 and C6-7, degenerative. ID (03/22/23) - Neurology initially attributed her weakness to deconditioning. On follow up, they recommended an LP (03/20). Until the LP was completed, all cultures were negative. Chest imaging was also negative. The CSF is currently growing GPC. The patient is being treated with daptomycin and Zosyn. I cannot explain the patient's persistent symptoms. Until the organism in the CSF has been identified, I would use LEAF STRIPPER-dosed ABX (vancomycin plus ceftriaxone/cefepime plus ampicillin). However, my suspicion for a true bacterial meningitis is low. If she had a typical organism (eg pneumococcus) I suspect that she would be much sicker. For completeness, I would order: CT A/P, HIV Ag/AB, CSF VDRL, syphilis screen, fungal BCX, Legionella uAG. The remainder of the AMS workup will be deferred to Neurology. CT abd/pelvis- 1. Subtle right perinephric edema is nonspecific, cannot rule out right pyelonephritis, correlate clinically and with labs. 2. Possible proctitis or stercoral colitis. 3. Possible mild gastroenteritis or ileus. 4. Bibasilar infiltrates and pleural effusion, greater on the right, are nonspecific, cannot rule out pneumonia. 5. Normal appendix. Blood work - ordered and pending Speech therapy evaluation: Recommend n.p.o. status given patient's generalized weakness Data Warehousing Manager consulted for possible initiation of tube feeding via core safe Continue IV fluids COVID 19 virus infection Remains asymptomatic otherwise but very weak COVID precautions Does not require any more COVID precautions she is about 14 days out of initial COVID infection Remdesivir added in light of elevated CRP Right upper ext edema US:IMPRESSION: No venous thrombus within the right upper extremity. History of asthma Continue home inhalers No acute symptoms Hypertension On amlodipine bp stable GERD Omeprazole History of hyponatremia On salt tablets Na stable at 133 History of factor V Leiden deficiency History of DVT Seems current not on anticoagulation Needs follow-up Bowel Prophylaxis no BM since admission daily miralax and Senna S BID DVT prophylaxis Lovenox Disposition Will need [facility] facility when medically stable for discharge Admission and Anticipated Discharge Date Admission Date: March 11, 2023 Subjective Follow-up for generalized weakness, etc. Seen resting in bed, comfortable, not in distress, but still very weak Awake and alert, answers simple questions appropriately, reports having some ABARCA Follow simple commands Patient's at bedside visiting Denies cough, shortness of breath, chest pain Denies abdominal pain, nausea vomiting Reports chronic back pain Fever 38 C yesterday at 1 pm Review of Systems Review of Systems: All systems reviewed & are unremarkable except as noted in Subjective Physical Exam Physical Exam: General- WD/WN elderly F + chronically ill appearing, very weak appearing Eyes- anicteric Neck- no JVD Lungs- clear breath sounds bilaterally, no rales/wheezes Heart- normal rate, regular rhythm; no murmurs Abdomen- normal bowel sounds, nondistended, soft, nontender Extremities- no pretibial edema, no calf tenderness Neuro- alert, oriented x 3; generally weak but able to move extremities somewhat while laying in bed Skin- warm & dry, pale Results & Data Results & Data Vital Signs (Past 12 Hours) Vital Signs Temp Pulse Pulse Resp BP BP Pulse Ox 03/23/23 07:41 03/23/23 07:41 37.1 C 84 20 159/73 H 21 L 03/23/23 06:18 83 165/76 H 03/23/23 03:28 37.3 C 86 22 171/79 H 93 O2 Del Method 03/23/23 07:41 Room Air 03/23/23 07:41 Room Air 03/23/23 06:18 03/23/23 03:28 Room Air Laboratory Results 03/23/23 03/23/23 03/21/23 Range/Units 06:20 01:43 Unknown WBC 9.82 (4.8-10.8) K/ul RBC 3.81 L (4.20-5.40) M/uL Hgb 10.3 L (12.0-16.0) g/dl Hct 32.5 L (37.0-47.0) % MCV 85.3 (80.0-100.0) fL MCH 27.0 (25.0-34.0) pg MCHC 31.7 L (32.0-36.0) g/dL RDW Std Deviation 43.8 (36.4-46.3) fL RDW Coeff of Chrissie 13.9 (11.5-14.5) % Plt Count 451 H (130-400) K/uL MPV 9.8 (9.4-12.4) fL Immature Gran % (Auto) 2.1 % Neut % (Auto) 62.3 % Lymph % (Auto) 17.2 % [place] % (Auto) 13.2 % Eos % (Auto) 4.7 % Baso % (Auto) 0.5 % Neut # (Auto) 6.11 (1.40-6.50) K/uL Lymph # (Auto) 1.69 (1.20-3.40) K/uL [place] # (Auto) 1.30 H (0.11-0.59) K/uL Eos # (Auto) 0.46 (0.00-0.50) K/uL Baso # (Auto) 0.05 (0.00-0.20) K/uL Immature Gran # (Auto) 0.21 H (0.01-0.20) K/uL Sodium 135 L (136-145) mmol/L Potassium 4.0 (3.5-5.1) mmol/L Chloride 105 (98-107) mmol/L Carbon Dioxide 22 (21-32) mmol/L Anion Gap 8 (3-11) BUN 9 (6-23) mg/dl Creatinine 0.45 L (0.6-1.2) mg/dl Est Cr Clr Drug Dosing 112.2 ml/min Est GFR ( Amer) 112.8 ml/min Est GFR (Non-Af Amer) 97.3 ml/min BUN/Creatinine Ratio 20.0 (10-20) Glucose 106 H (70-99(Fasting)) mg/dl Calcium 7.7 L (8.6-10.3) mg/dl Total Bilirubin 0.4 (0.2-1.0) mg/dl AST 18 (13-39) U/L ALT 21 (7-52) U/L Alkaline Phosphatase 63 (34-104) U/L Total Protein 5.7 L (6.0-8.3) gm/dl Albumin 2.5 L (3.4-5.0) gm/dl Globulin 3.2 (2.5-4.0) gm/dl Albumin/Globulin Ratio 0.8 L (0.9-2) CSF West [place] RNA TNP RPR Pending West Nile Virus Source CEREBROSPINAL FLUID HIV (1&2) Ag & Ab Conf Pending Urine Legionella Ag Pending Medications Administered Current Inpatient Medications Acetaminophen (Acetaminophen 325 Mg Tab) 650 mg PO Q4H PRN PRN Reason: FEVER OR PAIN Stop: 04/17/23 09:41 Last Admin: 03/22/23 05:38 Dose: 650 mg Albuterol (Albuterol Hfa 8 Gm Inhaler) 2 puffs INH QID PRN PRN Reason: Shortness Of Breath Or Wheezin Stop: 04/11/23 00:14 Amlodipine Besylate (Amlodipine Besylate 5 Mg Tab) 2.5 mg PO [facility] Stop: 04/23/23 08:59 Aspirin (Aspirin 325 Mg Ectab) 325 mg PO [facility] Stop: 04/11/23 08:59 Last Admin: 03/23/23 10:10 Dose: Not Given Calcium/Vitamin D (Calcium 600mg + Vit D 400 Iu Tab) 1 tab PO QDL [facility] Stop: 04/11/23 11:29 Last Admin: 03/23/23 10:35 Dose: Not Given Enoxaparin Sodium (Enoxaparin Inj 40 Mg/0.4 Ml Syr) 40 mg SQ [facility] Stop: 04/11/23 08:59 Last Admin: 03/23/23 10:34 Dose: 40 mg Famotidine (Famotidine 20 Mg Tab) 20 mg PO BID [facility] Stop: 04/11/23 08:59 Last Admin: 03/23/23 10:11 Dose: Not Given Fluticasone Propionate (Fluticasone Propionate Na Spr 16 Gm Btl) 2 sprays NA [facility] Stop: 04/11/23 08:59 Last Admin: 03/23/23 10:11 Dose: Not Given Potassium Chloride/Dextrose/Sod Cl (D5nss + 20meq Kcl) 20 meq in 1,000 mls @ 50 mls/hr IV .Q20H [facility]; Protocol Stop: 04/19/23 13:29 Last Admin: 03/23/23 10:35 Dose: 50 mls/hr Remdesivir 100 mg/ Sodium (Chloride) 250 mls @ 250 mls/hr IV Q24H [facility] Stop: 03/24/23 20:59 Last Infusion: 03/22/23 22:30 Dose: Infused Acetaminophen (Ofirmev) 1,000 mg in 100 mls @ 400 mls/hr IV Q8H PRN PRN Reason: pain, fever Stop: 03/24/23 15:44 Last Infusion: 03/22/23 13:42 Dose: Infused Pantoprazole Sodium 40 mg/ (Syringe) 10 mls @ 5 mls/min IV DAILY [facility] Stop: 04/20/23 08:59 Last Admin: 03/23/23 10:34 Dose: 5 mls/min Ceftriaxone Sodium 2,000 mg/ (Dextrose) 50 mls @ 100 mls/hr IV Q12H [facility]; Protocol Stop: 04/02/23 05:59 Last Infusion: 03/23/23 06:53 Dose: Infused Ampicillin Sodium 2,000 mg/ (Sodium Chloride) 100 mls @ 200 mls/hr IV Q4H [facility] Stop: 04/02/23 00:59 Last Admin: 03/23/23 10:34 Dose: 200 mls/hr Vancomycin HCl 1,250 mg/ (Sodium Chloride) 275 mls @ 200 mls/hr IV Q12H [facility] Stop: 04/02/23 11:59 Ipratropium [place] (Ipratropium [place] Nasal [place] 0.06% 15ml) 1 sprays MARINO BID [facility] Stop: 04/11/23 08:59 Last Admin: 03/23/23 10:34 Dose: 1 sprays Meclizine HCl (Meclizine Hcl 25 Mg Tab) 25 mg PO HS PRN PRN Reason: dizzyiness Stop: 04/11/23 00:14 Miscellaneous Information (Vancomycin Consult Active) 1 each N/A UD PRN PRN Reason: Consult Stop: 04/22/23 00:02 Montelukast Sodium (Montelukast Sodium 10 Mg Tablet) 10 mg PO HS [facility] Stop: 04/11/23 20:59 Last Admin: 03/22/23 20:50 Dose: 10 mg Multivitamins (Multivitamin Tab) 1 tab PO QDL [facility] Stop: 04/11/23 11:29 Last Admin: 03/23/23 10:35 Dose: Not Given Polyethylene Glycol (Polyethylene (Miralax) 17 Gm Pack) 17 gm PO DAILY PRN PRN Reason: Constipation Stop: 04/11/23 00:14 Polyethylene Glycol (Polyethylene (Miralax) 17 Gm Pack) 17 gm PO DAILY [facility] Stop: 04/15/23 13:44 Last Admin: 03/23/23 10:11 Dose: Not Given Senna/Docusate Sodium (Docusate Sodium/Senna 50/8.6mg Tab) 1 tab PO BID [facility] Stop: 04/15/23 20:59 Last Admin: 03/23/23 10:10 Dose: Not Given Sodium Chloride (Sodium Chloride 1 Gm Tablet) 1 gm PO BID [facility] Stop: 04/11/23 08:59 Last Admin: 03/23/23 10:11 Dose: Not Given Trolamine Salicylate (Trolamine Salicylate 10% Crm 255 Appln/85 Gm Tube) 1 appln EXT BID PRN PRN Reason: Pain Stop: 04/11/23 00:14 Vitamin E (Tocopheryl, Dl-Alpha 400 Units 180 Mg Cap) 400 units PO QDL [facility] Stop: 04/11/23 11:29 Last Admin: 03/23/23 10:35 Dose: Not Given
[2023-03-23] MEDS ORDERED: DEXTROSE 10% 1,000 ML IV PRN (10:56)
[2023-03-23] MEDS ORDERED: TPN/PPN CONSULT PHARMACY PRN (11:06)
[2023-03-23] MEDS: VANCOMYCIN HCL 1,250 MG in SODIUM CHLORIDE 0.9% 250 ML IV SCH (11:14)
[2023-03-23 12:02] LABS: Magnesium 1.9 mg/dl (1.7-2.4)
--- NOTE | 2023-03-23 12:21 | Pharmacy Report ---
Pharmacy PK ABX Note - Date of Service March 23, 2023 - Assessment and Plan Assessment * Ms Palacios is a 77 year old F receiving vanco + ceftriaxone + ampicillin for possible meningitis per recommendations of ID customer sales consultant * Pt was admitted on 03/11 for significant weakness, following an admission for COVID-19 (diagnosed 03/01/23). * Relevant micro: 03/21 CSF culture growing staph species, 03/21 CSF biofire negative, multiple serologies pending (Lyme, RPR, EBV, cryptococcus, Legionella, HIV) Plan Vancomycin * Loading dose: 1750 mg IV x 1 * Maintenance dose: 1250 mg IV every 12 hours * Regimen is predicted to achieve target AUC/AIDA of 400-600 mg/L.hr * Will check vanco level in 24-48 hrs if therapy to continue. Pharmacy will continue to follow and will adjust dose/frequency as necessary. Thank you. Pharmacy has transitioned to AUC monitoring for vancomycin. AUC/AIDA is the preferred PK/PD target and is associated with decreased risk of nephrotoxicity compared to traditional trough targets.
--- NOTE | 2023-03-23 14:17 | Communication Note ---
Date of Service: March 23, [address] Tanvi Bhardwaj MR Cervical Spine Without Intravenous Contrast CLINICAL HISTORY: Reason for exam: generalized weakness. TECHNIQUE: Magnetic resonance images of the cervical spine without intravenous contrast in multiple planes. Moderate motion artifact. COMPARISON: Cervical spine x-ray 04/21/2009. FINDINGS: Vertebrae: Normal, smooth curvature. No marrow edema, discitis or osteomyelitis. No compression deformity. Spinal cord: No abnormal signal. Motion artifact limits detail. Soft tissues: Moderate prevertebral edema centered at C3-4. Moderate diffuse edema in the muscles bilaterally, including multifidus and semispinalis, with interspinous ligamentous edema. Findings are nonspecific, may be posttraumatic or inflammatory/infectious. No epidural abscess. DISCS/SPINAL CANAL/NEURAL FORAMINA: C2-C3: Mild degenerative disc disease. C3-C4: Moderate narrowing, circumferential disc and osteophyte, no central spinal stenosis. C4-C5: Moderate to severe narrowing, circumferential disc and osteophyte, borderline central spinal stenosis and severe left foraminal stenosis. C5-C6: Moderate to severe narrowing, circumferential disc and osteophyte, borderline central spinal stenosis and severe bilateral foraminal stenosis. C6-C7: Moderate to severe narrowing, circumferential disc and osteophyte, borderline central spinal stenosis and severe bilateral foraminal stenosis. C7-T1: Mild degenerative disc disease. OTHER: No isolated disc herniation. Facet joint fairly well-preserved. IMPRESSION: 1. Moderate prevertebral edema, intramuscular edema in the posterior muscles, and interspinous ligamentous edema, nonspecific, may be inflammatory/infectious or posttraumatic. 2. No epidural abscess or abnormal cord signal. 3. Borderline central spinal stenosis C4-5, C5-6 and C6-7, degenerative. EXAM: MR Head Without Intravenous Contrast CLINICAL HISTORY: Reason for exam: generalized weakness. TECHNIQUE: Magnetic resonance images of the head/brain without intravenous contrast in multiple planes. Mild motion artifact. COMPARISON: Head CT 03/11/23 and MRI brain 02/07/11. FINDINGS: Brain: No mass effect or acute infarct. No acute hemorrhage. Mild atrophy and chronic white matter disease. Ventricles: No hydrocephalus or midline shift. Bones/joints: No acute bony lesion. Soft tissues: No scalp hematoma. Sinuses: Clear. Mastoid air cells: No mastoid effusion. IMPRESSION: 1. Mild age-related findings. 2. No acute infarct, bleed, or acute intracranial abnormality. Impression/recommendations: MRI of the cervical spine shows muscular and edematous edema that could be contributing to polyradiculopathy/radiculitis, etiology undetermined infectious versus inflammatory, Continue to follow cultures. Consider reducing steroids Solu-Medrol 1 g for 5 days. Continue current antibiotics to cover for staph infection. Recommend an interval follow-up with MRI of the C-spine with and without contrast
[2023-03-23] MEDS: REMDESIVIR 100 MG in SODIUM CHLORIDE 0.9% 230 ML IV SCH (19:43)
[2023-03-23] MEDS ORDERED: hydrALAZINE HCL 20 MG/ML VIAL IV PRN (20:22)
[2023-03-23] MEDS: FAMOTIDINE 20 MG in SYRINGE 3 ML IV SCH (21:16)
[2023-03-23] MEDS: MONTELUKAST SODIUM 10 MG TABLET PO SCH (21:25)
[2023-03-23] MEDS: ACETAMINOPHEN 1,000 MG/100 ML VIAL IV PRN (22:51)
[2023-03-24] MEDS: VANCOMYCIN HCL 1,250 MG in SODIUM CHLORIDE 0.9% 250 ML IV SCH ×2 (00:43→12:51)
[2023-03-24] MEDS: AMPICILLIN 2,000 MG in SODIUM CHLOR 0.9% MINI-B 100 ML IV SCH ×4 (02:04→13:31)
[2023-03-24] MEDS: D5NSS + 20MEQ KCL 20 MEQ/1,000 ML BAG IV SCH (02:05)
[2023-03-24] MEDS: cefTRIAXone SODIUM 2,000 MG in DEXTROSE 5 % MINI-B 50 ML IV SCH (05:57)
[2023-03-24] MEDS ORDERED: METOPROLOL TARTRATE 1 MG/ML VIAL IV STA (09:03)
[2023-03-24] MEDS: ENOXAPARIN INJ 40 MG/0.4 ML SYR SQ SCH (09:09)
[2023-03-24] MEDS: PANTOprazole 40 MG in SYRINGE 0 ML IV SCH (09:10)
[2023-03-24] MEDS: FAMOTIDINE 20 MG in SYRINGE 3 ML IV SCH ×2 (09:13→21:12)
--- NOTE | 2023-03-24 09:27 | Hospitalist Progress Note ---
Date of Service March 24, 2023 Assessment & Plan (1) Weakness: Plan: Per Dr. Rodriguez w/ addendum 77 yo F with mild intermittent asthma, hypertension, irritable bowel syndrome, GERD, chronic interstitial cystitis without hematuria, generalized osteoarthritis, memory disturbance, factor V Leiden mutation, history of CVA, hyponatremia, history of DVT comes because of weakness. Patient was recently diagnosed COVID on March 01 and got admitted and was discharged on March 03. Patient states after going home she was fine for few days. Then she was feeling very weak and tired. Not able to ambulate much. Legs are sore. This reason she came back. Thinks she might have low-grade fever. A week ago she had some chest discomfort that got resolved. Generalized weakness likely secondary to COVID-19 virus infection COVID test has been positive on 03/01/2023 and again 03/11/2023 during this admission Initially, patient's generalized weakness was improving, was able to eat and walking around the her bed with physical therapy Neurology was consulted and felt no further w/u needed likely all in setting of illness and deconditioning Starting Tuesday, patient developed generalized weakness again On Tuesday, was showing profound generalized weakness, Signs of possible aspiration Neurologist re-consulted Recommend lumbar puncture and check CK level Status post lumbar puncture WBC, glucose, protein within normal limits Gram stain/ csf cultx: Coag negat. staph Positive fever starting on 03/21/23 -daptomycin plus Zosyn started Remdesivir also started given patient's increased CRP - will stop now (03/24, pt received 4 doses - this was discussed w/ ID) Chest x-ray: No pneumonia Urine analysis: Negative, will repeat w/ [facility] cath Blood cultures: Pending Fungal cultx : pending 03/22-03/23, patient more awake and alert but still having generalized weakness, fever Neurology and infectious disease consulted Neurology (03/22) - Kevinary in a 77F with a PMH of recent COVID 19 infection, HTN, prior DVT and spinal stenosis. On exam she is lethargic and follows simple commands. There is no clear focality to her exam/position may be issue By report she has had similar (less severe) episodes in the past with immunizations. GBS is ruled out due to low proteins in the CSF, CSF is also negative for infections Stroke or cervical spinal pathology, another potential cause could be post-COVID 19 fatigue or an underlying muscle disorder. Plan -- MRI of the brain without contrast, MRI of the C-spine with contrast Myasthenia gravis antibodies - pending Brain MRI - 1. Mild age-related findings. 2. No acute infarct, bleed, or acute intracranial abnormality. Cervical spine MRI - 1. Moderate prevertebral edema, intramuscular edema in the posterior muscles, and interspinous ligamentous edema, nonspecific, may be inflammatory/infectious or posttraumatic.2. No epidural abscess or abnormal cord signal.3. Borderline central spinal stenosis C4-5, C5-6 and C6-7, degenerative. 03/23 -discussed over the phone with neurology results of MRIs, noted extensive inflammation, and considering high-dose steroid. This will need to be further discussed with ID. ID (03/22/23) - Neurology initially attributed her weakness to deconditioning. On follow up, they recommended an LP (03/20). Until the LP was completed, all cultures were negative. Chest imaging was also negative. The CSF is currently growing GPC. The patient is being treated with daptomycin and Zosyn. I cannot explain the patient's persistent symptoms. Until the organism in the CSF has been identified, I would use LITIGATION SPECIALIST-dosed ABX (vancomycin plus ceftriaxone/cefepime plus ampicillin). However, my suspicion for a true bacterial meningitis is low. If she had a typical organism (eg pneumococcus) I suspect that she would be much sicker. For completeness, I would order: CT A/P, HIV Ag/AB, CSF VDRL, syphilis screen, fungal BCX, Legionella uAG. The remainder of the AMS workup will be deferred to Neurology. CT abd/pelvis- 1. Subtle right perinephric edema is nonspecific, cannot rule out right pyelonephritis, correlate clinically and with labs. 2. Possible proctitis or stercoral colitis. 3. Possible mild gastroenteritis or ileus. 4. Bibasilar infiltrates and pleural effusion, greater on the right, are nonspecific, cannot rule out pneumonia. 5. Normal appendix. Blood work - ordered and pending 03/24 - discussed with ID, as patient still febrile last evening and results of CSF now showing coag negative staph, likely contaminant. Stopping ampicillin, remdesivir. Recommend to continue with Vanco Zosyn, and can consider doxycycline. Tickborne panel, UA repeat with straight cath, LDH and reticulocyte count. Speech therapy evaluation: Recommend n.p.o. status given patient's generalized weakness Armhole Baster Jumpbasting consulted for possible initiation of tube feeding via core safe/ PPN Continue IV fluids for now COVID 19 virus infection Remains asymptomatic otherwise but very weak COVID precautions Does not require any more COVID precautions she is about 14 days out of initial COVID infection Remdesivir added in light of elevated CRP. Received 4 doses, discussed with ID remdesivir stopped Right upper ext edema US:IMPRESSION: No venous thrombus within the right upper extremity. History of asthma Continue home inhalers No acute symptoms Hypertension On amlodipine bp stable GERD Omeprazole History of hyponatremia On salt tablets - can't take Po now Na stable at 135 cont. to monitor History of factor V Leiden deficiency History of DVT Seems current not on anticoagulation Needs follow-up Bowel Prophylaxis no BM since admission daily miralax and Senna S BID DVT prophylaxis Lovenox Disposition Will need custodial facility when medically stable for discharge Admission and Anticipated Discharge Date Admission Date: March 11, 2023 Subjective Follow-up for generalized weakness, etc. Seen laying in bed, today she has been barely responding, only opens her eyes for little bit, moans when moved. Pt seen and examined on two different occasions. Pt's present at the bedside, and son on the phone updated. Denies cough, shortness of breath, chest pain Denies abdominal pain, nausea vomiting Per , has chronic back pain Fever 38.3 C last night Yesterday discussed with neurology, and they are considering high-dose steroid for inflammation noted on cervical spine MRI. Today discussed in detail with infectious disease, at this time would hold on steroids. Patient still had fever last evening despite being on antibiotics. CSF results now available, showing coag negative staph, and this is likely conta minant. Will switch antibiotics to Vanco Zosyn, and will consider doxycycline as well. Will obtain tickborne panel, and will repeat UA with straight cath. Will obtain peripheral smear as well for tickborne panel, LDH and reticulocyte count Review of Systems Review of Systems: Unobtainable due to cognitive status Physical Exam Physical Exam: General- WD/WN elderly F + chronically ill appearing, very weak appearing Eyes- anicteric Neck- no JVD Lungs- clear breath sounds bilaterally, no rales/wheezes Heart- normal rate, regular rhythm; no murmurs Abdomen- normal bowel sounds, nondistended, soft, nontender Extremities- no pretibial edema, no calf tenderness Neuro- very drowsy today, opens eyes for little bit, only somewhat following commands Skin- warm & dry, pale Results & Data Results & Data Vital Signs (Past 12 Hours) Vital Signs Temp Pulse Pulse Resp BP BP Pulse Ox 03/24/23 09:13 97 H 169/83 H 03/24/23 07:31 36.5 C 84 26 H 169/83 H 95 03/24/23 03:00 36.4 C L 81 25 H 140/84 96 03/24/23 00:28 86 03/23/23 23:00 38.3 C H 88 22 96 03/23/23 23:00 O2 Del Method 03/24/23 09:13 03/24/23 07:31 Room Air 03/24/23 03:00 Room Air 03/24/23 00:28 03/23/23 23:00 Room Air 03/23/23 23:00 Room Air Laboratory Results 03/24/23 03/24/23 03/24/23 Range/Units 12:00 10:14 10:14 WBC (4.8-10.8) K/ul RBC (4.20-5.40) M/uL Hgb (12.0-16.0) g/dl Hct (37.0-47.0) % MCV (80.0-100.0) fL MCH (25.0-34.0) pg MCHC (32.0-36.0) g/dL RDW Std Deviation (36.4-46.3) fL RDW Coeff of Chrissie (11.5-14.5) % Plt Count (130-400) K/uL MPV (9.4-12.4) fL Immature Gran % (Auto) % Neut % (Auto) % Lymph % (Auto) % [place] % (Auto) % Eos % (Auto) % Baso % (Auto) % Reticulocyte % (Auto) Neut # (Auto) (1.40-6.50) K/uL Lymph # (Auto) (1.20-3.40) K/uL [place] # (Auto) (0.11-0.59) K/uL Eos # (Auto) (0.00-0.50) K/uL Baso # (Auto) (0.00-0.20) K/uL Reticulocyte # Immature Gran # (Auto) (0.01-0.20) K/uL Sodium (136-145) mmol/L Potassium (3.5-5.1) mmol/L Chloride (98-107) mmol/L Carbon Dioxide (21-32) mmol/L Anion Gap (3-11) BUN (6-23) mg/dl Creatinine (0.6-1.2) mg/dl Est Cr Clr Drug Dosing ml/min Est GFR ( Amer) ml/min Est GFR (Non-Af Amer) ml/min BUN/Creatinine Ratio (10-20) Glucose (70-99(Fasting)) mg/dl POC Glucose 87 (70-99) mg/dl Calcium (8.6-10.3) mg/dl Phosphorus (2.5-4.9) mg/dl Magnesium (1.7-2.4) mg/dl Total Bilirubin (0.2-1.0) mg/dl AST (13-39) U/L ALT (7-52) U/L Alkaline Phosphatase (34-104) U/L Total Protein (6.0-8.3) gm/dl Albumin (3.4-5.0) gm/dl Globulin (2.5-4.0) gm/dl Albumin/Globulin Ratio (0.9-2) Random Vancomycin (10-20) mcg/ml RPR (Nonreactive) Anaplasma Smear Pending Babesia Smear Pending Cancelled HIV (1&2) Ag & Ab Conf (NON-REACTIVE) 03/24/23 03/24/23 03/24/23 Range/Units 10:14 06:11 01:22 WBC 7.34 (4.8-10.8) K/ul RBC 4.22 (4.20-5.40) M/uL Hgb 11.5 L (12.0-16.0) g/dl Hct 35.6 L (37.0-47.0) % MCV 84.4 (80.0-100.0) fL MCH 27.3 (25.0-34.0) pg MCHC 32.3 (32.0-36.0) g/dL RDW Std Deviation 42.7 (36.4-46.3) fL RDW Coeff of Chrissie 13.9 (11.5-14.5) % Plt Count 477 H (130-400) K/uL MPV 9.5 (9.4-12.4) fL Immature Gran % (Auto) 2.2 % Neut % (Auto) 71.4 % Lymph % (Auto) 9.8 % [place] % (Auto) 10.4 % Eos % (Auto) 5.7 % Baso % (Auto) 0.5 % Reticulocyte % (Auto) Pending Neut # (Auto) 5.24 (1.40-6.50) K/uL Lymph # (Auto) 0.72 L (1.20-3.40) K/uL [place] # (Auto) 0.76 H (0.11-0.59) K/uL Eos # (Auto) 0.42 (0.00-0.50) K/uL Baso # (Auto) 0.04 (0.00-0.20) K/uL Reticulocyte # Pending Immature Gran # (Auto) 0.16 (0.01-0.20) K/uL Sodium 135 L (136-145) mmol/L Potassium 4.1 (3.5-5.1) mmol/L Chloride 103 (98-107) mmol/L Carbon Dioxide 24 (21-32) mmol/L Anion Gap 8 (3-11) BUN 8 (6-23) mg/dl Creatinine 0.43 L (0.6-1.2) mg/dl Est Cr Clr Drug Dosing 122.2 ml/min Est GFR ( Amer) 114.5 ml/min Est GFR (Non-Af Amer) 98.8 ml/min BUN/Creatinine Ratio 18.6 (10-20) Glucose 106 H (70-99(Fasting)) mg/dl POC Glucose 86 115 H (70-99) mg/dl Calcium 7.9 L (8.6-10.3) mg/dl Phosphorus 2.6 (2.5-4.9) mg/dl Magnesium 1.8 (1.7-2.4) mg/dl Total Bilirubin 0.3 (0.2-1.0) mg/dl AST 19 (13-39) U/L ALT 20 (7-52) U/L Alkaline Phosphatase 66 (34-104) U/L Total Protein 5.9 L (6.0-8.3) gm/dl Albumin 2.6 L (3.4-5.0) gm/dl Globulin 3.3 (2.5-4.0) gm/dl Albumin/Globulin Ratio 0.8 L (0.9-2) Random Vancomycin 12.2 (10-20) mcg/ml RPR (Nonreactive) Anaplasma Smear Cancelled Babesia Smear HIV (1&2) Ag & Ab Conf (NON-REACTIVE) 03/23/23 03/23/23 Range/Units 19:20 06:20 WBC (4.8-10.8) K/ul RBC (4.20-5.40) M/uL Hgb (12.0-16.0) g/dl Hct (37.0-47.0) % MCV (80.0-100.0) fL MCH (25.0-34.0) pg MCHC (32.0-36.0) g/dL RDW Std Deviation (36.4-46.3) fL RDW Coeff of Chrissie (11.5-14.5) % Plt Count (130-400) K/uL MPV (9.4-12.4) fL Immature Gran % (Auto) % Neut % (Auto) % Lymph % (Auto) % [place] % (Auto) % Eos % (Auto) % Baso % (Auto) % Reticulocyte % (Auto) Neut # (Auto) (1.40-6.50) K/uL Lymph # (Auto) (1.20-3.40) K/uL [place] # (Auto) (0.11-0.59) K/uL Eos # (Auto) (0.00-0.50) K/uL Baso # (Auto) (0.00-0.20) K/uL Reticulocyte # Immature Gran # (Auto) (0.01-0.20) K/uL Sodium (136-145) mmol/L Potassium (3.5-5.1) mmol/L Chloride (98-107) mmol/L Carbon Dioxide (21-32) mmol/L Anion Gap (3-11) BUN (6-23) mg/dl Creatinine (0.6-1.2) mg/dl Est Cr Clr Drug Dosing ml/min Est GFR ( Amer) ml/min Est GFR (Non-Af Amer) ml/min BUN/Creatinine Ratio (10-20) Glucose (70-99(Fasting)) mg/dl POC Glucose 109 H (70-99) mg/dl Calcium (8.6-10.3) mg/dl Phosphorus (2.5-4.9) mg/dl Magnesium (1.7-2.4) mg/dl Total Bilirubin (0.2-1.0) mg/dl AST (13-39) U/L ALT (7-52) U/L Alkaline Phosphatase (34-104) U/L Total Protein (6.0-8.3) gm/dl Albumin (3.4-5.0) gm/dl Globulin (2.5-4.0) gm/dl Albumin/Globulin Ratio (0.9-2) Random Vancomycin (10-20) mcg/ml RPR Nonreactive (Nonreactive) Anaplasma Smear Babesia Smear HIV (1&2) Ag & Ab Conf NON-REACTIVE (NON-REACTIVE) Medications Administered Current Inpatient Medications Acetaminophen (Acetaminophen 325 Mg Tab) 650 mg PO Q4H PRN PRN Reason: FEVER OR PAIN Stop: 04/17/23 09:41 Last Admin: 03/22/23 05:38 Dose: 650 mg Albuterol (Albuterol Hfa 8 Gm Inhaler) 2 puffs INH QID PRN PRN Reason: Shortness Of Breath Or Wheezin Stop: 04/11/23 00:14 Amlodipine Besylate (Amlodipine Besylate 5 Mg Tab) 2.5 mg PO QAM [facility] Stop: 04/23/23 08:59 Aspirin (Aspirin 325 Mg Ectab) 325 mg PO QAM [facility] Stop: 04/11/23 08:59 Last Admin: 03/23/23 10:10 Dose: Not Given Aspirin (Aspirin 300 Mg Supp) 300 mg AK DAILY [facility] Stop: 04/23/23 08:59 Calcium/Vitamin D (Calcium 600mg + Vit D 400 Iu Tab) 1 tab PO QDL [facility] Stop: 04/11/23 11:29 Last Admin: 03/23/23 10:35 Dose: Not Given Enoxaparin Sodium (Enoxaparin Inj 40 Mg/0.4 Ml Syr) [facility] [place] [facility]: 04/11/23 08:59 Last Admin: 03/24/23 09:09 Dose: 40 mg Famotidine (Famotidine 20 Mg Tab) 20 mg PO BID [facility] Stop: 04/11/23 08:59 Last Admin: 03/23/23 10:11 Dose: Not Given Fluticasone Propionate (Fluticasone Propionate Na Spr 16 Gm Btl) 2 sprays NA QAM [facility] Stop: 04/11/23 08:59 Last Admin: 03/23/23 10:11 Dose: Not Given Hydralazine HCl (Hydralazine Hcl 20 Mg/Ml Vial) 5 mg IV Q6H PRN PRN Reason: Hypertension Stop: 04/22/23 20:21 Potassium Chloride/Dextrose/Sod Cl (D5nss + 20meq Kcl) 20 meq in 1,000 mls @ 50 mls/hr IV .Q20H [facility]; Protocol Stop: 04/19/23 13:29 Last Admin: 03/24/23 02:05 Dose: 50 mls/hr Remdesivir 100 mg/ Sodium (Chloride) 250 mls @ 250 mls/hr IV Q24H [facility] Stop: 03/24/23 20:59 Last Infusion: 03/23/23 20:54 Dose: Infused Acetaminophen (Ofirmev) 1,000 mg in 100 mls @ 400 mls/hr IV Q8H PRN PRN Reason: pain, fever Stop: 03/24/23 15:44 Last Infusion: 03/23/23 23:06 Dose: Infused Pantoprazole Sodium 40 mg/ (Syringe) 10 mls @ 5 mls/min IV DAILY [facility] Stop: 04/20/23 08:59 Last Admin: 03/24/23 09:10 Dose: 5 mls/min Ceftriaxone Sodium 2,000 mg/ (Dextrose) 50 mls @ 100 mls/hr IV Q12H [facility]; Protocol Stop: 04/02/23 05:59 Last Infusion: 03/24/23 06:51 Dose: Infused Ampicillin Sodium 2,000 mg/ (Sodium Chloride) 100 mls @ 200 mls/hr IV Q4H [facility] Stop: 04/02/23 00:59 Last Admin: 03/24/23 09:09 Dose: 200 mls/hr Vancomycin HCl 1,250 mg/ (Sodium Chloride) 275 mls @ 200 mls/hr IV Q12H [facility] Stop: 04/02/23 11:59 Last Infusion: 03/24/23 02:12 Dose: Infused Famotidine 20 mg/ Syringe 5 mls @ 2.5 mls/min IV BID [facility]MRA[facility] Stop: 04/22/23 20:59 Last Admin: 03/24/23 09:13 Dose: 2.5 mls/min Ipratropium [place] (Ipratropium [place] Nasal Drums 0.06% 15ml) 1 sprays MARINO BID [facility] Stop: 04/11/23 08:59 Last Admin: 03/23/23 20:59 Dose: 1 sprays Meclizine HCl (Meclizine Hcl 25 Mg Tab) 25 mg PO HS PRN PRN Reason: dizzyiness Stop: 04/11/23 00:14 Miscellaneous Information (Vancomycin Consult Active) 1 each N/A UD PRN PRN Reason: Consult Stop: 04/22/23 00:02 Miscellaneous Information (Tpn/Ppn Consult Pharmacy) 1 each N/A UD PRN PRN Reason: Consult Stop: 04/22/23 11:05 Montelukast Sodium (Montelukast Sodium 10 Mg Tablet) 10 mg PO HS [facility] Stop: 04/11/23 20:59 Last Admin: 03/23/23 21:25 Dose: Not Given Multivitamins (Multivitamin Tab) 1 tab PO QDL [facility] Stop: 04/11/23 11:29 Last Admin: 03/23/23 10:35 Dose: Not Given Polyethylene Glycol (Polyethylene (Miralax) 17 Gm Pack) 17 gm PO DAILY PRN PRN Reason: Constipation Stop: 04/11/23 00:14 Polyethylene Glycol (Polyethylene (Miralax) 17 Gm Pack) 17 gm PO DAILY [facility] Stop: 04/15/23 13:44 Last Admin: 03/23/23 10:11 Dose: Not Given Senna/Docusate Sodium (Docusate Sodium/Senna 50/8.6mg Tab) 1 tab PO BID [facility] Stop: 04/15/23 20:59 Last Admin: 03/23/23 21:25 Dose: Not Given Sodium Chloride (Sodium Chloride 1 Gm Tablet) 1 gm PO BID [facility] Stop: 04/11/23 08:59 Last Admin: 03/23/23 21:25 Dose: Not Given Trolamine Salicylate (Trolamine Salicylate 10% Crm 255 Appln/85 Gm Tube) 1 appln EXT BID PRN PRN Reason: Pain Stop: 04/11/23 00:14 Vitamin E (Tocopheryl, Dl-Alpha 400 Units 180 Mg Cap) 400 units PO QDL [facility] Stop: 04/11/23 11:29 Last Admin: 03/23/23 10:35 Dose: Not Given
[2023-03-24] MEDS: FLUTICASONE PROPIONATE NA SPR 16 GM BTL SCH (10:11)
[2023-03-24] MEDS: POLYETHYLENE (MIRALAX) 17 GM PACK PO SCH (10:11)
[2023-03-24] MEDS: ASPIRIN 300 MG SUPP PR SCH (10:11)
[2023-03-24] MEDS: DOCUSATE SODIUM/SENNA 50/8.6MG TAB PO SCH ×2 (10:11→20:11)
[2023-03-24] MEDS: IPRATROPIUM BROMIDE NASAL SPRAY 0.06% 15ML NAE SCH ×2 (10:11→21:12)
[2023-03-24] MEDS: amLODIPine BESYLATE 5 MG TAB PO SCH (10:11)
[2023-03-24] MEDS: SODIUM CHLORIDE 1 GM TABLET PO SCH ×2 (10:12→20:10)
[2023-03-24 10:43] LABS: Basophils # (auto) 0.04 K/uL (0.00-0.20); Basophils % (auto) 0.5 %; Eosinophils # (auto) 0.42 K/uL (0.00-0.50); Eosinophils % (auto) 5.7 %; Hematocrit (blood only) 35.6 % (37.0-47.0); Hemoglobin 11.5 g/dl (12.0-16.0); Immature Granulocytes # (auto) 0.16 K/uL (0.01-0.20); Immature Granulocytes % (auto) 2.2 %; Lymphocytes # (auto) 0.72 K/uL (1.20-3.40); Lymphocytes % (auto) 9.8 %; Mean Corpuscular Hemoglobin 27.3 pg (25.0-34.0); Mean Corpuscular Hgb Conc 32.3 g/dL (32.0-36.0); Mean Corpuscular Volume 84.4 fL (80.0-100.0); Mean Platelet Volume 9.5 fL (9.4-12.4); Monocytes # (auto) 0.76 K/uL (0.11-0.59); Monocytes % (auto) 10.4 %; Neutrophils # (auto) 5.24 K/uL (1.40-6.50); Neutrophils % (auto) 71.4 %; Platelet Count 477 K/uL (130-400); RDW Coefficient of Variation 13.9 % (11.5-14.5); RDW Standard Deviation 42.7 fL (36.4-46.3); Red Blood Count 4.22 M/uL (4.20-5.40); White Blood Count 7.34 K/ul (4.8-10.8)
[2023-03-24 10:54] LABS: Albumin Globulin Ratio 0.8 (0.9-2); Albumin Level 2.6 gm/dl (3.4-5.0); BUN Creatinine Ratio 18.6 (10-20); Bilirubin,Total 0.3 mg/dl (0.2-1.0); Calcium 7.9 mg/dl (8.6-10.3); Creatinine Clr Calc Pharmacy 122.2 ml/min; Est GFR (African American) 114.5 ml/min; Est GFR (Non-African American) 98.8 ml/min; Globulin 3.3 gm/dl (2.5-4.0); Magnesium 1.8 mg/dl (1.7-2.4); Phosphorus 2.6 mg/dl (2.5-4.9); Potassium 4.1 mmol/L (3.5-5.1); Total Protein 5.9 gm/dl (6.0-8.3)
[2023-03-24] MEDS ORDERED: VANCOMYCIN LEVEL ONE (11:00)
[2023-03-24] MEDS: CALCIUM 600MG + VIT D 400 IU TAB PO SCH (12:47)
[2023-03-24] MEDS: TOCOPHERYL, DL-ALPHA 400 UNITS 180 MG CAP PO SCH (12:47)
[2023-03-24] MEDS: MULTIVITAMIN TAB PO SCH (12:48)
[2023-03-24] MEDS ORDERED: DEXTROSE 10% 1,000 ML IV PRN (13:18)
--- NOTE | 2023-03-24 13:25 | XRay Report ---
XR chest 1V portable HISTORY: 77 years-old Female fever, r/o aspiration acute fever COMPARISON: 03/20/2023 TECHNIQUE: AP view of the chest FINDINGS: Cardiac silhouette is normal. Hazy ill-defined right basilar opacities. Pulmonary vascular congestion . No pneumothorax or large pleural effusion. Mild right diaphragmatic elevation. Degenerative changes of the shoulders and spine. IMPRESSION: 1. Cardiomegaly with pulmonary vascular congestion. 2. Hazy ill-defined right basilar opacities may represent atelectasis versus pneumonitis. ACT 112: Negative or not required by law. The above report was generated using voice recognition software. It may contain grammatical, syntax o r spelling errors. Electronically signed by: Herbie Benitez M.D. 03/24/2023 1:23 PM
[2023-03-24] MEDS ORDERED: PIPERACILLIN/TAZOBACTAM 4.5 GM in DEXTROSE 5% MINI-B 100 ML IV SCH (13:30)
--- NOTE | 2023-03-24 13:43 | Pharmacy Report ---
Pharmacy PN Initial Consult - Date of Service March 24, 2023 - Scope Pharmacy has been consulted to manage parenteral nutrition orders and order appropriate labs. As part of the Nutrition Support Team guidelines, pharmacy will work in conjunction with dietary when determining the patients caloric needs. - Subjective The patient is a 77 year old F admitted on 03/11/23 22:33 for WEAKNESS, COVID. Patient is to receive parenteral nutrition for NPO status/uncertain diet advancement Pertinent PMH: - Objective Height: 5 ft 5 in Weight: 88.4 kg Intake & Output (Last 24Hrs): Intake & Output 03/22/23 03/23/23 03/24/23 03/25/23 06:59 06:59 06:59 06:59 Intake Total 2974 / 2974 3101.667 / 3101.667 3375 / 3375 100 / 100 Output Total 1301 / 1301 900 / 900 2100 / 2100 Balance 1673 / 1673 2201.667 / 2201.667 1275 / 1275 100 / 100 Weight 81.5 kg 88.4 kg 88.4 kg Laboratory Data (Last 24 Hrs):: 03/24/23 10:14 Sodium 135 L Potassium 4.1 Chloride 103 Carbon Dioxide 24 BUN 8 Creatinine 0.43 L Glucose 106 H Calcium 7.9 L Phosphorus 2.6 Magnesium 1.8 Total Bilirubin 0.3 AST 19 ALT 20 Alkaline Phosphatase 66 Albumin 2.6 L Nutrition Assessment:: Please refer to the Notes section of the EMR for the most recent market research analyst note. - Assessment F: D5NS + 20 meq KCL @ 50 ml/hr; Abx providing approximately 1.5 L/day- to be reviewed for de-escalation today E: WNL except sodium 135L- try to prioritize in PPN (limited d/t osmolarity) N: Failed swallow; Albumin 2.6, TG 36, BSGs 80ss-100s - Plan For day 1 of PN administration, the following will be ordered: Macronutrients Amino acids 43 grams/day Dextrose 100 grams/day Lipids 50 grams/day Micronutrients Combined electrolytes 20 mL - contains 35 mEq Na, 20 meq K, 4.5 mEq Ca, 5 mEq Mg, 35 mEq Cl, 29.5 mEq acetate per 20 mL Sodium phosphate 20 MMol Sodium chloride 30 mEq Sodium acetate 20 mEq Multivitamins 10 mL Trace Elements 10 mL Additional additives: Thiamine 100 mg Total volume 1069 mL to be infused over 24 hrs will provide 840 kcal/day Final osmolarity 891 mOsm/L (maximum for PPN is 900 mOsm/L) Labs to be ordered per PN order protocol Pharmacy will follow and adjust parenteral nutrition orders on a daily basis. Thank you.
--- NOTE | 2023-03-24 13:51 | Communication Note ---
Date of Service: March 24, 2023 LABS/MICROBIOLOGY: 03/15: 2 sets of blood culture negative 03/20: 2 sets of blood culture negative 03/21: Cerebrospinal fluid culture growing coagulase-negative staph (not lugdunensis) 03/22: Fungal blood culture pending 03/21: UA with 1-5 WBCs and negative bacteria. 20-30 epithelial cells 03/21: 6 CSF nucleated cells 03/21: Meningitis encephalitis panel negative 03/21: VDRL CSF pending 03/21: Lyme antibodies in CSF pending 03/21: West Nile virus DNA pending 03/21: CSF oligoclonal bands pending 9 03/23: HIV nonreactive IMAGING: Cervical spine MRI on 03/22: 1. Moderate prevertebral edema, intramuscular edema in the posterior muscles, and interspinous ligamentous edema, nonspecific, may be inflammatory/infectious or posttraumatic. 2. No epidural abscess or abnormal cord signal. 3. Borderline central spinal stenosis C4-5, C5-6 and C6-7, degenerative. CT scan of the abdomen and pelvis on 03/22: 1. Subtle right perinephric edema is nonspecific, cannot rule out right pyelonephritis, correlate clinically and with labs. 2. Possible proctitis or stercoral colitis. 3. Possible mild gastroenteritis or ileus. 4. Bibasilar infiltrates and pleural effusion, greater on the right, are nonspecific, cannot rule out pneumonia. 5. Normal appendix. Impression: 1. Acute encephalopathy 2. Fever 3. Presumed aseptic meningitis 4. Generalized fatigue - which could be attributed to the recent COVID infection and deconditioning 5. Acute anemia 6. Vertebral/intramuscular edema cervical spine as demonstrated on MRI cervical spine (of unknown significance) PLAN: - I have low suspicion for bacterial meningitis; therefore, I would recommend stopping ampicillin. Given her fever, can continue on vancomycin and IV piperacillin tazobactam for now. - I would recommend stopping remdesivir as the patient completed 3 days as prophylaxis. - Please sent for the tick-borne panel including Babesia as well as peripheral blood smear for parasitemia. - Consider starting oral doxycycline for preemptive treatment of anaplasmosis/Lyme. - Please send for a repeat UA with reflex to culture after a straight cath in and out. - I would not recommend starting on corticosteroids at this point especially with no established diagnosis and the possibility of underlying infection.
[2023-03-24] MEDS ORDERED: PIPER/TAZO 4.5g in D5W MINI-B 100 ML IV ONE (14:30)
--- NOTE | 2023-03-24 14:32 | Pharmacy Report ---
Pharmacy PK ABX Note - Date of Service March 24, 2023 - Assessment and Plan Assessment 03/24 * 03/21 CSF culture updated to coag neg staph. ID now recommending antibiotic change to doxycycline (possible tick bourne disease) + vancomycin + zosyn as patient has continued fever. Remdesivir discontinued. * Level today 12.2 mcg/mL suggests AUCss 459 mg/L.hr with 77% probability. Given continued fever will adjust dose to target AUCss 547 with 95% probability * 03/23 * Ms Palacios is a 77 year old F receiving vanco + ceftriaxone + ampicillin for possible meningitis per recommendations of ID marine engineering consultant * Pt was admitted on 03/11 for significant weakness, following an admission for COVID-19 (diagnosed 03/01/23). * Relevant micro: 03/21 CSF culture growing staph species, 03/21 CSF biofire negative, multiple serologies pending (Lyme, RPR, EBV, cryptococcus, Legionella, HIV) Plan Vancomycin * Loading dose: 1750 mg IV x 1 * Maintenance dose: 1500 mg IV every 12 hours * Regimen is predicted to achieve target AUC/AIDA of 400-600 mg/L.hr * Random level 03/26 @ 1000 Pharmacy will continue to follow and will adjust dose/frequency as necessary. Thank you. Pharmacy has transitioned to AUC monitoring for vancomycin. AUC/AIDA is the preferred PK/PD target and is associated with decreased risk of nephrotoxicity compared to traditional trough targets.
[2023-03-24] MEDS: DOXYCYCLINE HYCLATE 100 MG in DEXTROSE 5% MINI-B 100 ML IV SCH (14:36)
[2023-03-24] MEDS: ACETAMINOPHEN 1,000 MG/100 ML VIAL IV PRN ×2 (14:43→19:43)
[2023-03-24 15:31] LABS: Appearance Urine Clear (Clear); Bacteria Urine Automated Negative (Negative); Bilirubin Urine Negative (Negative); Blood Urine 2+ (Negative); Color Urine Yellow; Epithelial Cell Urine Auto >30 /lpf (0-5); Glucose Urine UA Negative (Negative); Ketones Urine Negative (Negative); Leukocyte Esterase Urine Negative (Negative); Nitrite Urine Negative (Negative); Protein Urine Trace (Negative); Specific Gravity Urine 1.016 (1.000-1.030); Urobilinogen Urine Negative (Negative); pH Urine 6.5 (4.5-7.5)
[2023-03-24] MEDS ORDERED: CLINOLIPID 20% IV FAT EMULSION 250 ML IV SCH (16:00)
[2023-03-24] MEDS: AA 4.25%/D5W 1L 1,000 ML in Peripheral TPN bag 0 ML IV SCH (17:31)
[2023-03-24] MEDS: PIPER/TAZO 4.5g in D5W MINI-B 100 ML IV SCH (19:43)
[2023-03-24] MEDS: MONTELUKAST SODIUM 10 MG TABLET PO SCH (20:11)
[2023-03-24 21:36] LABS: Procalcitonin 0.19 ng/ml (0-0.5)
[2023-03-24 21:42] LABS: Lyme Ab IgG w/WB Rflx Negative (Negative); Lyme Ab IgM w/WB Rflx Negative (Negative)
[2023-03-24] MEDS ORDERED: STOP CLINOLIPID SCH (22:00)
[2023-03-24] MEDS ORDERED: ASPIRIN 300 MG SUPP PR ONE (22:29)
[2023-03-25] MEDS: VANCOMYCIN HCL 1,500 MG in SODIUM CHLORIDE 0.9% 500 ML IV SCH ×2 (00:34→15:29)
[2023-03-25] MEDS: DOXYCYCLINE HYCLATE 100 MG in DEXTROSE 5% MINI-B 100 ML IV SCH ×2 (01:34→17:33)
[2023-03-25] MEDS: PIPER/TAZO 4.5g in D5W MINI-B 100 ML IV SCH ×3 (03:41→23:26)
--- NOTE | 2023-03-25 08:01 | Hospitalist Progress Note ---
Date of Service March 25, 2023 Assessment & Plan (1) Weakness: Plan: Per Dr. Rodriguez w/ addendum 77 yo F with mild intermittent asthma, hypertension, irritable bowel syndrome, GERD, chronic interstitial cystitis without hematuria, generalized osteoarthritis, memory disturbance, factor V Leiden mutation, history of CVA, hyponatremia, history of DVT comes because of weakness. Patient was recently diagnosed COVID on March 01 and got admitted and was discharged on March 03. Patient states after going home she was fine for few days. Then she was feeling very weak and tired. Not able to ambulate much. Legs are sore. This reason she came back. Thinks she might have low-grade fever. A week ago she had some chest discomfort that got resolved. Generalized weakness likely secondary to COVID-19 virus infection COVID test has been positive on 03/01/2023 and again 03/11/2023 during this admission Initially, patient's generalized weakness was improving, was able to eat and walking around the her bed with physical therapy Neurology was consulted and felt no further w/u needed likely all in setting of illness and deconditioning Starting Tuesday, patient developed generalized weakness again On Tuesday, was showing profound generalized weakness, Signs of possible aspiration Neurologist re-consulted Recommend lumbar puncture and check CK level Status post lumbar puncture WBC, glucose, protein within normal limits Gram stain/ csf cultx: Coag negat. staph Positive fever starting on 03/21/23 -daptomycin plus Zosyn started Remdesivir also started given patient's increased CRP - will stop now (03/24, pt received 4 doses - this was discussed w/ ID) Chest x-ray: No pneumonia. Repeated CXR - some pulm vasc congestion, R basilar opacity Urine analysis: Negative, will repeat w/ straigh cath Blood cultures: Pending Fungal cultx : pending 03/22-03/23, patient more awake and alert but still having generalized weakness, fever 03/24 very drowsy, barely responsive, febrile 03/25 looks the best I have seen her, awake,alert, following commands, but very weak Neurology and infectious disease consulted Neurology (03/22) - [place] in a 77F with a PMH of recent COVID 19 infection, HTN, prior DVT and spinal stenosis. On exam she is lethargic and follows simple commands. There is no clear focality to her exam/position may be issue By report she has had similar (less severe) episodes in the past with immunizations. GBS is ruled out due to low proteins in the CSF, CSF is also negative for infections Stroke or cervical spinal pathology, another potential cause could be post-COVID 19 fatigue or an underlying muscle disorder. Plan -- MRI of the brain without contrast, MRI of the C-spine with contrast Myasthenia gravis antibodies - pending Brain MRI - 1. Mild age-related findings. 2. No acute infarct, bleed, or acute intracranial abnormality. Cervical spine MRI - 1. Moderate prevertebral edema, intramuscular edema in the posterior muscles, and interspinous ligamentous edema, nonspecific, may be inflammatory/infectious or posttraumatic.2. No epidural abscess or abnormal cord signal.3. Borderline central spinal stenosis C4-5, C5-6 and C6-7, degenerative. 03/23 -discussed over the phone with neurology results of MRIs, noted extensive inflammation, and considering high-dose steroid. This will need to be further discussed with ID. ID (03/22/23) - Neurology initially attributed her weakness to deconditioning. On follow up, they recommended an LP (03/20). Until the LP was completed, all cultures were negative. Chest imaging was also negative. The CSF is currently growing GPC. The patient is being treated with daptomycin and Zosyn. I cannot explain the patient's persistent symptoms. Until the organism in the CSF has been identified, I would use RAILROAD SWITCHMAN-dosed ABX (vancomycin plus ceftriaxone/cefepime plus ampicillin). However, my suspicion for a true bacterial meningitis is low. If she had a typical organism (eg pneumococcus) I suspect that she would be much sicker. For completeness, I would order: CT A/P, HIV Ag/AB, CSF VDRL, syphilis screen, fungal BCX, Legionella uAG. The remainder of the AMS workup will be deferred to Neurology. CT abd/pelvis- 1. Subtle right perinephric edema is nonspecific, cannot rule out right pyelonephritis, correlate clinically and with labs. 2. Possible proctitis or stercoral colitis. 3. Possible mild gastroenteritis or ileus. 4. Bibasilar infiltrates and pleural effusion, greater on the right, are nonspecific, cannot rule out pneumonia. 5. Normal appendix. Blood work - ordered and pending 03/24 - discussed with ID, as patient still febrile last evening and results of CSF now showing coag negative staph, likely contaminant. Stopping ampicillin, remdesivir. Recommend to continue with Vanco Zosyn, and can consider doxycycl ine. Tickborne panel, UA repeat with straight cath, LDH and reticulocyte count. 03/25 - Pt is awake, alert , following commands. Afebrile today but febrile yesterday. Currently on vanco, zosyn, doxy. + LLQ abd. discomfort, + diarrhea. Will test for c. diff. Speech therapy evaluation: Recommend n.p.o. status given patient's generalized weakness - will re-test as she is awake and appears somewhat stronger Waterproofer Helper consulted for possible initiation of tube feeding via core safe/ PPN, started PPN Continue IV fluids for now COVID 19 virus infection Remains asymptomatic otherwise but very weak COVID precautions Does not require any more COVID precautions she is about 14 days out of initial COVID infection Remdesivir added in light of elevated CRP. Received 4 doses, discussed with ID remdesivir stopped on 03/24 Right upper ext edema US:IMPRESSION: No venous thrombus within the right upper extremity. History of asthma Continue home inhalers No acute symptoms Hypertension On amlodipine bp stable GERD Omeprazole History of hyponatremia On salt tablets - can't take Po now Na stable at 135 cont. to monitor History of factor V Leiden deficiency History of DVT Seems current not on anticoagulation Needs follow-up Bowel Prophylaxis no BM since admission daily miralax and Senna S BID DVT prophylaxis Lovenox Disposition Will need [facility] facility when medically stable for discharge Admission and Anticipated Discharge Date Admission Date: March 11, 2023 Subjective Follow-up for generalized weakness, etc. Seen laying in bed, today she is awake and alert, answers appropriately, and following commands. Yesterday she was barely responding. Febrile yesterday. Patient's present at the bedside, and updated. Denies cough, shortness of breath, chest pain She has some abdominal discomfort at the left lower quadrant, and diarrhea today. C. difficile sent. Yesterday discussed in detail with infectious disease, at this time would hold on steroids. Patient still had fever despite being on antibiotics. CSF results now available, showing coag negative staph, and this is likely contaminant. Switched antibiotics to Vanco Zosyn, and also added doxycycline. Tickborne panel ordered, and repeated UA with straight cath. Peripheral smear as well for tickborne panel ordered, LDH and reticulocyte count Review of Systems Review of Systems: All systems reviewed & are unremarkable except as noted in Subjective Physical Exam Physical Exam: General- WD/WN elderly F + chronically ill appearing, very weak appearing however awake and improved from yesterday Eyes- anicteric Neck- no JVD Lungs- clear breath sounds bilaterally, no rales/wheezes Heart- normal rate, regular rhythm; no murmurs Abdomen- normal bowel sounds, nondistended, soft, nontender Extremities- no pretibial edema, no calf tenderness Neuro- awake and alert today, answers appropriately, following commands, generally weak but able to move extremities somewhat Skin- warm & dry, pale Results & Data Results & Data Vital Signs (Past 12 Hours) Vital Signs Temp Pulse Pulse Resp BP Pulse Ox O2 Del Method 03/25/23 07:00 36.6 C 79 18 135/75 95 Room Air 03/25/23 03:00 36.5 C 66 18 132/77 98 Room Air 03/24/23 23:00 37.5 C 75 23 126/68 97 Room Air 03/24/23 22:00 74 03/24/23 21:38 Room Air Laboratory Results 03/25/23 03/25/23 03/24/23 Range/Units 06:27 00:18 Unknown WBC (4.8-10.8) K/ul RBC (4.20-5.40) M/uL Hgb (12.0-16.0) g/dl Hct (37.0-47.0) % MCV (80.0-100.0) fL MCH (25.0-34.0) pg MCHC (32.0-36.0) g/dL RDW Std Deviation (36.4-46.3) fL RDW Coeff of Chrissie (11.5-14.5) % Plt Count (130-400) K/uL MPV (9.4-12.4) fL Immature Gran % (Auto) % Neut % (Auto) % Lymph % (Auto) % [place] % (Auto) % Eos % (Auto) % Baso % (Auto) % Reticulocyte % (Auto) (0.50-2.00) % Neut # (Auto) (1.40-6.50) K/uL Lymph # (Auto) (1.20-3.40) K/uL [place] # (Auto) (0.11-0.59) K/uL Eos # (Auto) (0.00-0.50) K/uL Baso # (Auto) (0.00-0.20) K/uL Reticulocyte # (0.020-0.100) 10^6/uL Immature Gran # (Auto) (0.01-0.20) K/uL Sodium (136-145) mmol/L Potassium (3.5-5.1) mmol/L Chloride (98-107) mmol/L Carbon Dioxide (21-32) mmol/L Anion Gap (3-11) BUN (6-23) mg/dl Creatinine (0.6-1.2) mg/dl Est Cr Clr Drug Dosing ml/min Est GFR ( Amer) ml/min Est GFR (Non-Af Amer) ml/min BUN/Creatinine Ratio (10-20) Glucose (70-99(Fasting)) mg/dl POC Glucose 104 H 104 H (70-99) mg/dl Calcium (8.6-10.3) mg/dl Phosphorus (2.5-4.9) mg/dl Magnesium (1.7-2.4) mg/dl Total Bilirubin (0.2-1.0) mg/dl AST (13-39) U/L ALT (7-52) U/L Alkaline Phosphatase (34-104) U/L Lactate Dehydrogenase (86-244) U/L Total Protein (6.0-8.3) gm/dl Albumin (3.4-5.0) gm/dl Globulin (2.5-4.0) gm/dl Albumin/Globulin Ratio (0.9-2) Procalcitonin (0-0.5) ng/ml Urine Color Yellow Urine Appearance Clear (Clear) Urine pH 6.5 (4.5-7.5) Ur Specific [place] 1.016 (1.000-1.030) Urine Protein Trace H (Negative) Urine Glucose (UA) Negative (Negative) Urine Ketones Negative (Negative) Urine Blood 2+ H (Negative) Urine Nitrite Negative (Negative) Urine Bilirubin Negative (Negative) Urine Urobilinogen Negative (Negative) Ur Leukocyte Esterase Negative (Negative) Urine WBC (Auto) 1-5 (0-5) /hpf Urine RBC (Auto) 10-30 H (0-4) /hpf U Hyaline Cast (Auto) 1-5 (0-5) /lpf U Epithel Cells (Auto) >30 H (0-5) /lpf Urine Bacteria (Auto) Negative (Negative) Ur Renal Epithelial Cell Not Reportable Random Vancomycin (10-20) mcg/ml Striated Muscle Ab Ttr Striated Muscle Ab Acetylchol Rcpt Bind Ab Anaplasma Smear A. phagocytophilum DNA Babesia Smear Babesia microti DNA PCR Lyme Disease IgG Ab (Negative) Lyme Disease IgM Ab (Negative) E.chaffeensis DNA (PCR) HIV (1&2) Ag & Ab Conf (NON-REACTIVE) Q Fever Phase I IgG Ab Q Fever Phase I IgM Ab Q Fever Phase II IgG Ab Q Fever Phase II IgM Ab Rickettsia IgG Ab Rickettsia IgM Ab Typhus Fever IgG Ab Typhus Fever IgM Ab 03/24/23 03/24/23 03/24/23 Range/Units 20:30 14:34 14:31 WBC (4.8-10.8) K/ul RBC (4.20-5.40) M/uL Hgb (12.0-16.0) g/dl Hct (37.0-47.0) % MCV (80.0-100.0) fL MCH (25.0-34.0) pg MCHC (32.0-36.0) g/dL RDW Std Deviation (36.4-46.3) fL RDW Coeff of Chrissie (11.5-14.5) % Plt Count (130-400) K/uL MPV (9.4-12.4) fL Immature Gran % (Auto) % Neut % (Auto) % Lymph % (Auto) % [place] % (Auto) % Eos % (Auto) % Baso % (Auto) % Reticulocyte % (Auto) (0.50-2.00) % Neut # (Auto) (1.40-6.50) K/uL Lymph # (Auto) (1.20-3.40) K/uL [place] # (Auto) (0.11-0.59) K/uL Eos # (Auto) (0.00-0.50) K/uL Baso # (Auto) (0.00-0.20) K/uL Reticulocyte # (0.020-0.100) 10^6/uL Immature Gran # (Auto) (0.01-0.20) K/uL Sodium (136-145) mmol/L Potassium (3.5-5.1) mmol/L Chloride (98-107) mmol/L Carbon Dioxide (21-32) mmol/L Anion Gap (3-11) BUN (6-23) mg/dl Creatinine (0.6-1.2) mg/dl Est Cr Clr Drug Dosing ml/min Est GFR ( Amer) ml/min Est GFR (Non-Af Amer) ml/min BUN/Creatinine Ratio (10-20) Glucose (70-99(Fasting)) mg/dl POC Glucose (70-99) mg/dl Calcium (8.6-10.3) mg/dl Phosphorus (2.5-4.9) mg/dl Magnesium (1.7-2.4) mg/dl Total Bilirubin (0.2-1.0) mg/dl AST (13-39) U/L ALT (7-52) U/L Alkaline Phosphatase (34-104) U/L Lactate Dehydrogenase (86-244) U/L Total Protein (6.0-8.3) gm/dl Albumin (3.4-5.0) gm/dl Globulin (2.5-4.0) gm/dl Albumin/Globulin Ratio (0.9-2) Procalcitonin 0.19 (0-0.5) ng/ml Urine Color Urine Appearance (Clear) Urine pH (4.5-7.5) Ur Specific [place] (1.000-1.030) Urine Protein (Negative) Urine Glucose (UA) (Negative) Urine Ketones (Negative) Urine Blood (Negative) Urine Nitrite (Negative) Urine Bilirubin (Negative) Urine Urobilinogen (Negative) Ur Leukocyte Esterase (Negative) Urine WBC (Auto) (0-5) /hpf Urine RBC (Auto) (0-4) /hpf U Hyaline Cast (Auto) (0-5) /lpf U Epithel Cells (Auto) (0-5) /lpf Urine Bacteria (Auto) (Negative) Ur Renal Epithelial Cell Random Vancomycin (10-20) mcg/ml Striated Muscle Ab Ttr Pending Striated Muscle Ab Pending Acetylchol Rcpt Bind Ab Pending Anaplasma Smear A. phagocytophilum DNA Pending Babesia Smear Babesia microti DNA PCR Lyme Disease IgG Ab Negative (Negative) Lyme Disease IgM Ab Negative (Negative) E.chaffeensis DNA (PCR) Pending HIV (1&2) Ag & Ab Conf (NON-REACTIVE) Q Fever Phase I IgG Ab Q Fever Phase I IgM Ab Q Fever Phase II IgG Ab Q Fever Phase II IgM Ab Rickettsia IgG Ab Rickettsia IgM Ab Typhus Fever IgG Ab Typhus Fever IgM Ab 03/24/23 03/24/23 03/24/23 Range/Units 14:19 12:00 10:14 WBC (4.8-10.8) K/ul RBC (4.20-5.40) M/uL Hgb (12.0-16.0) g/dl Hct (37.0-47.0) % MCV (80.0-100.0) fL MCH (25.0-34.0) pg MCHC (32.0-36.0) g/dL RDW Std Deviation (36.4-46.3) fL RDW Coeff of Chrissie (11.5-14.5) % Plt Count (130-400) K/uL MPV (9.4-12.4) fL Immature Gran % (Auto) % Neut % (Auto) % Lymph % (Auto) % [place] % (Auto) % Eos % (Auto) % Baso % (Auto) % Reticulocyte % (Auto) (0.50-2.00) % Neut # (Auto) (1.40-6.50) K/uL Lymph # (Auto) (1.20-3.40) K/uL [place] # (Auto) (0.11-0.59) K/uL Eos # (Auto) (0.00-0.50) K/uL Baso # (Auto) (0.00-0.20) K/uL Reticulocyte # (0.020-0.100) 10^6/uL Immature Gran # (Auto) (0.01-0.20) K/uL Sodium (136-145) mmol/L Potassium (3.5-5.1) mmol/L Chloride (98-107) mmol/L Carbon Dioxide (21-32) mmol/L Anion Gap (3-11) BUN (6-23) mg/dl Creatinine (0.6-1.2) mg/dl Est Cr Clr Drug Dosing ml/min Est GFR ( Amer) ml/min Est GFR (Non-Af Amer) ml/min BUN/Creatinine Ratio (10-20) Glucose (70-99(Fasting)) mg/dl POC Glucose 87 (70-99) mg/dl Calcium (8.6-10.3) mg/dl Phosphorus (2.5-4.9) mg/dl Magnesium (1.7-2.4) mg/dl Total Bilirubin (0.2-1.0) mg/dl AST (13-39) U/L ALT (7-52) U/L Alkaline Phosphatase (34-104) U/L Lactate Dehydrogenase (86-244) U/L Total Protein (6.0-8.3) gm/dl Albumin (3.4-5.0) gm/dl Globulin (2.5-4.0) gm/dl Albumin/Globulin Ratio (0.9-2) Procalcitonin (0-0.5) ng/ml Urine Color Urine Appearance (Clear) Urine pH (4.5-7.5) Ur Specific [place] (1.000-1.030) Urine Protein (Negative) Urine Glucose (UA) (Negative) Urine Ketones (Negative) Urine Blood (Negative) Urine Nitrite (Negative) Urine Bilirubin (Negative) Urine Urobilinogen (Negative) Ur Leukocyte Esterase (Negative) Urine WBC (Auto) (0-5) /hpf Urine RBC (Auto) (0-4) /hpf U Hyaline Cast (Auto) (0-5) /lpf U Epithel Cells (Auto) (0-5) /lpf Urine Bacteria (Auto) (Negative) Ur Renal Epithelial Cell Random Vancomycin (10-20) mcg/ml Striated Muscle Ab Ttr Striated Muscle Ab Acetylchol Rcpt Bind Ab Anaplasma Smear A. phagocytophilum DNA Babesia Smear See Comment Babesia microti DNA PCR Pending Lyme Disease IgG Ab (Negative) Lyme Disease IgM Ab (Negative) E.chaffeensis DNA (PCR) HIV (1&2) Ag & Ab Conf (NON-REACTIVE) Q Fever Phase I IgG Ab Pending Q Fever Phase I IgM Ab Pending Q Fever Phase II IgG Ab Pending Q Fever Phase II IgM Ab Pending Rickettsia IgG Ab Pending Rickettsia IgM Ab Pending Typhus Fever IgG Ab Pending Typhus Fever IgM Ab Pending 03/24/23 03/24/23 03/23/23 Range/Units 10:14 10:14 06:20 WBC 7.34 (4.8-10.8) K/ul RBC 4.22 (4.20-5.40) M/uL Hgb 11.5 L (12.0-16.0) g/dl Hct 35.6 L (37.0-47.0) % MCV 84.4 (80.0-100.0) fL MCH 27.3 (25.0-34.0) pg MCHC 32.3 (32.0-36.0) g/dL RDW Std Deviation 42.7 (36.4-46.3) fL RDW Coeff of Chrissie 13.9 (11.5-14.5) % Plt Count 477 H (130-400) K/uL MPV 9.5 (9.4-12.4) fL Immature Gran % (Auto) 2.2 % Neut % (Auto) 71.4 % Lymph % (Auto) 9.8 % [place] % (Auto) 10.4 % Eos % (Auto) 5.7 % Baso % (Auto) 0.5 % Reticulocyte % (Auto) 0.70 (0.50-2.00) % Neut # (Auto) 5.24 (1.40-6.50) K/uL Lymph # (Auto) 0.72 L (1.20-3.40) K/uL [place] # (Auto) 0.76 H (0.11-0.59) K/uL Eos # (Auto) 0.42 (0.00-0.50) K/uL Baso # (Auto) 0.04 (0.00-0.20) K/uL Reticulocyte # 0.030 (0.020-0.100) 10^6/uL Immature Gran # (Auto) 0.16 (0.01-0.20) K/uL Sodium 135 L (136-145) mmol/L Potassium 4.1 (3.5-5.1) mmol/L Chloride 103 (98-107) mmol/L Carbon Dioxide 24 (21-32) mmol/L Anion Gap 8 (3-11) BUN 8 (6-23) mg/dl Creatinine 0.43 L (0.6-1.2) mg/dl Est Cr Clr Drug Dosing 122.2 ml/min Est GFR ( Amer) 114.5 ml/min Est GFR (Non-Af Amer) 98.8 ml/min BUN/Creatinine Ratio 18.6 (10-20) Glucose 106 H (70-99(Fasting)) mg/dl POC Glucose (70-99) mg/dl Calcium 7.9 L (8.6-10.3) mg/dl Phosphorus 2.6 (2.5-4.9) mg/dl Magnesium 1.8 (1.7-2.4) mg/dl Total Bilirubin 0.3 (0.2-1.0) mg/dl AST 19 (13-39) U/L ALT 20 (7-52) U/L Alkaline Phosphatase 66 (34-104) U/L Lactate Dehydrogenase 230 (86-244) U/L Total Protein 5.9 L (6.0-8.3) gm/dl Albumin 2.6 L (3.4-5.0) gm/dl Globulin 3.3 (2.5-4.0) gm/dl Albumin/Globulin Ratio 0.8 L (0.9-2) Procalcitonin (0-0.5) ng/ml Urine Color Urine Appearance (Clear) Urine pH (4.5-7.5) Ur Specific [place] (1.000-1.030) Urine Protein (Negative) Urine Glucose (UA) (Negative) Urine Ketones (Negative) Urine Blood (Negative) Urine Nitrite (Negative) Urine Bilirubin (Negative) Urine Urobilinogen (Negative) Ur Leukocyte Esterase (Negative) Urine WBC (Auto) (0-5) /hpf Urine RBC (Auto) (0-4) /hpf U Hyaline Cast (Auto) (0-5) /lpf U Epithel Cells (Auto) (0-5) /lpf Urine Bacteria (Auto) (Negative) Ur Renal Epithelial Cell Random Vancomycin 12.2 (10-20) mcg/ml Striated Muscle Ab Ttr Striated Muscle Ab Acetylchol Rcpt Bind Ab Anaplasma Smear See Comment Cancelled A. phagocytophilum DNA Babesia Smear Cancelled Babesia microti DNA PCR Lyme Disease IgG Ab (Negative) Lyme Disease IgM Ab (Negative) E.chaffeensis DNA (PCR) HIV (1&2) Ag & Ab Conf NON-REACTIVE (NON-REACTIVE) Q Fever Phase I IgG Ab Q Fever Phase I IgM Ab Q Fever Phase II IgG Ab Q Fever Phase II IgM Ab Rickettsia IgG Ab Rickettsia IgM Ab Typhus Fever IgG Ab Typhus Fever IgM Ab Medications Administered Current Inpatient Medications Acetaminophen (Acetaminophen 325 Mg Tab) 650 mg PO Q4H PRN PRN Reason: FEVER OR PAIN Stop: 04/17/23 09:41 Last Admin: 03/22/23 05:38 Dose: 650 mg Albuterol (Albuterol Hfa 8 Gm Inhaler) 2 puffs INH QID PRN PRN Reason: Shortness Of Breath Or Wheezin Stop: 04/11/23 00:14 Amlodipine Besylate (Amlodipine Besylate 5 Mg Tab) 2.5 mg PO [facility] Stop: 04/23/23 08:59 Last Admin: 03/24/23 10:11 Dose: Not Given Aspirin (Aspirin 325 Mg Ectab) 325 mg PO [facility] Stop: 04/11/23 08:59 Last Admin: 03/23/23 10:10 Dose: Not Given Aspirin (Aspirin 300 Mg Supp) 300 mg GA DAILY [facility] Stop: 04/23/23 08:59 Last Admin: 03/24/23 10:11 Dose: Not Given Calcium/Vitamin D (Calcium 600mg + Vit D 400 Iu Tab) 1 tab PO QDL [facility] Stop: 04/11/23 11:29 Last Admin: 03/24/23 12:47 Dose: Not Given Enoxaparin Sodium (Enoxaparin Inj 40 Mg/0.4 Ml Syr) 40 mg SQ [facility] Stop: 04/11/23 08:59 Last Admin: 03/24/23 09:09 Dose: 40 mg Famotidine (Famotidine 20 Mg Tab) 20 mg PO BID [facility] Stop: 04/11/23 08:59 Last Admin: 03/23/23 10:11 Dose: Not Given Fluticasone Propionate (Fluticasone Propionate Na Spr 16 Gm Btl) 2 sprays NA [facility] Stop: 04/11/23 08:59 Last Admin: 03/24/23 10:11 Dose: Not Given Hydralazine HCl (Hydralazine Hcl 20 Mg/Ml Vial) 5 mg IV Q6H PRN PRN Reason: Hypertension Stop: 04/22/23 20:21 Pantoprazole Sodium 40 mg/ (Syringe) 10 mls @ 5 mls/min IV DAILY [facility] Stop: 04/20/23 08:59 Last Admin: 03/24/23 09:10 Dose: 5 mls/min Famotidine 20 mg/ Syringe 5 mls @ 2.5 mls/min IV BID [facility] Stop: 04/22/23 20:59 Last Admin: 03/24/23 21:12 Dose: 2.5 mls/min Dextrose (D10w) 1,000 mls @ 0 mls/hr IV .Q0M PRN PRN Reason: protocol (see label comments) Stop: 04/23/23 13:17 Amino Acids 1,000 ml/ (Nutrition (Parenteral)) 1,000 mls @ 44.19 mls/hr IV .[id number] [facility]; Protocol Stop: 04/23/23 15:59 Last Admin: 03/24/23 17:31 Dose: 44.2 mls/hr Doxycycline Hyclate 100 mg/ (Dextrose) 100 mls @ 50 mls/hr IV Q12H [facility] Stop: 03/26/23 13:59 Last Infusion: 03/25/23 03:34 Dose: Infused Piperacillin Sod/Tazobactam (Sod 4.5 gm/ Dextrose) 100 mls @ 25 mls/hr IV Q8H [facility]; Protocol Stop: 04/03/23 19:59 Last Admin: 03/25/23 03:41 Dose: 25 mls/hr Vancomycin HCl 1,500 mg/ (Sodium Chloride) 530 mls @ 200 mls/hr IV Q12H [facility] Stop: 04/02/23 11:59 Last Infusion: 03/25/23 03:13 Dose: Infused Acetaminophen (Ofirmev) 1,000 mg in 100 mls @ 400 mls/hr IV Q8H PRN PRN Reason: Fever or headache Stop: 03/27/23 19:09 Last Infusion: 03/24/23 19:58 Dose: Infused Ipratropium [place] (Ipratropium [place] Nasal [place] 0.06% 15ml) 1 sprays MARINO BID [facility] Stop: 04/11/23 08:59 Last Admin: 03/24/23 21:12 Dose: 1 sprays Meclizine HCl (Meclizine Hcl 25 Mg Tab) 25 mg PO HS PRN PRN Reason: dizzyiness Stop: 04/11/23 00:14 Miscellaneous Information (Vancomycin Consult Active) 1 each N/A UD PRN PRN Reason: Consult Stop: 04/22/23 00:02 Miscellaneous Information (Tpn/Ppn Consult Pharmacy) 1 each N/A UD PRN PRN Reason: Consult Stop: 04/22/23 11:05 Montelukast Sodium (Montelukast Sodium 10 Mg Tablet) 10 mg PO HS [facility] Stop: 04/11/23 20:59 Last Admin: 03/24/23 20:11 Dose: Not Given Multivitamins (Multivitamin Tab) 1 tab PO QDL [facility] Stop: 04/11/23 11:29 Last Admin: 03/24/23 12:48 Dose: Not Given Polyethylene Glycol (Polyethylene (Miralax) 17 Gm Pack) 17 gm PO DAILY PRN PRN Reason: Constipation Stop: 04/11/23 00:14 Polyethylene Glycol (Polyethylene (Miralax) 17 Gm Pack) 17 gm PO DAILY [facility] Stop: 04/15/23 13:44 Last Admin: 03/24/23 10:11 Dose: Not Given Senna/Docusate Sodium (Docusate Sodium/Senna 50/8.6mg Tab) 1 tab PO BID [facility] Stop: 04/15/23 20:59 Last Admin: 03/24/23 20:11 Dose: Not Given Sodium Chloride (Sodium Chloride 1 Gm Tablet) 1 gm PO BID [facility] Stop: 04/11/23 08:59 Last Admin: 03/24/23 20:10 Dose: Not Given Trolamine Salicylate (Trolamine Salicylate 10% Crm 255 Appln/85 Gm Tube) 1 appln EXT BID PRN PRN Reason: Pain Stop: 04/11/23 00:14 Vitamin E (Tocopheryl, Dl-Alpha 400 Units 180 Mg Cap) 400 units PO QDL [facility] Stop: 04/11/23 11:29 Last Admin: 03/24/23 12:47 Dose: Not Given
[2023-03-25 08:31] LABS: Basophils # (auto) 0.05 K/uL (0.00-0.20); Basophils % (auto) 0.7 %; Eosinophils # (auto) 0.51 K/uL (0.00-0.50); Eosinophils % (auto) 6.7 %; Hematocrit (blood only) 32.4 % (37.0-47.0); Hemoglobin 10.4 g/dl (12.0-16.0); Immature Granulocytes # (auto) 0.32 K/uL (0.01-0.20); Immature Granulocytes % (auto) 4.2 %; Lymphocytes # (auto) 0.95 K/uL (1.20-3.40); Lymphocytes % (auto) 12.5 %; Mean Corpuscular Hemoglobin 26.9 pg (25.0-34.0); Mean Corpuscular Hgb Conc 32.1 g/dL (32.0-36.0); Mean Corpuscular Volume 83.9 fL (80.0-100.0); Mean Platelet Volume 9.5 fL (9.4-12.4); Monocytes % (auto) 13.1 %; Neutrophils % (auto) 62.8 %; Platelet Count 402 K/uL (130-400); RDW Coefficient of Variation 13.5 % (11.5-14.5); RDW Standard Deviation 41.3 fL (36.4-46.3); Red Blood Count 3.86 M/uL (4.20-5.40); White Blood Count 7.63 K/ul (4.8-10.8)
[2023-03-25 08:42] LABS: Calcium 7.8 mg/dl (8.6-10.3); Creatinine Clr Calc Pharmacy 125.6 ml/min; Est GFR (African American) 115.4 ml/min; Est GFR (Non-African American) 99.6 ml/min; Magnesium 1.8 mg/dl (1.7-2.4); Phosphorus 3.5 mg/dl (2.5-4.9); Potassium 3.3 mmol/L (3.5-5.1)
[2023-03-25] MEDS: SODIUM CHLORIDE 1 GM TABLET PO SCH ×2 (09:00→20:13)
[2023-03-25] MEDS: DOCUSATE SODIUM/SENNA 50/8.6MG TAB PO SCH ×2 (09:00→20:13)
[2023-03-25] MEDS: amLODIPine BESYLATE 5 MG TAB PO SCH (09:00)
[2023-03-25] MEDS: POLYETHYLENE (MIRALAX) 17 GM PACK PO SCH (09:00)
[2023-03-25] MEDS: POTASSIUM CHLORIDE / WTR 10 MEQ/100 ML PLCT IV SCH ×4 (11:12→17:51)
[2023-03-25] MEDS: FLUTICASONE PROPIONATE NA SPR 16 GM BTL SCH (11:17)
[2023-03-25] MEDS: ENOXAPARIN INJ 40 MG/0.4 ML SYR SQ SCH (11:19)
[2023-03-25] MEDS: IPRATROPIUM BROMIDE NASAL SPRAY 0.06% 15ML NAE SCH ×2 (11:19→20:34)
[2023-03-25] MEDS: TOCOPHERYL, DL-ALPHA 400 UNITS 180 MG CAP PO SCH (11:30)
[2023-03-25] MEDS: CALCIUM 600MG + VIT D 400 IU TAB PO SCH (11:30)
[2023-03-25] MEDS: MULTIVITAMIN TAB PO SCH (11:30)
[2023-03-25] MEDS: FAMOTIDINE 20 MG in SYRINGE 3 ML IV SCH ×2 (11:43→20:38)
[2023-03-25] MEDS: ASPIRIN 300 MG SUPP PR SCH (11:43)
[2023-03-25] MEDS ORDERED: PERIPHERAL TPN IV SCH (16:00)
[2023-03-25] MEDS ORDERED: [UNRECOGNIZED DRUG - OTHER] IV SCH (16:00)
[2023-03-25] MEDS ORDERED: CLINOLIPID 20% IV FAT EMULSION 250 ML IV SCH (16:00)
[2023-03-25] MEDS: PANTOprazole 40 MG in SYRINGE 0 ML IV SCH (17:50)
[2023-03-25] MEDS: MONTELUKAST SODIUM 10 MG TABLET PO SCH (20:13)
[2023-03-25] MEDS: STOP CLINOLIPID SCH (23:06)
[2023-03-25] MEDS: AA 4.25%/D5W 1L 1,000 ML in Peripheral TPN bag 0 ML IV SCH (23:10)
[2023-03-26] MEDS: VANCOMYCIN HCL 1,500 MG in SODIUM CHLORIDE 0.9% 500 ML IV SCH ×2 (01:13→15:09)
[2023-03-26] MEDS ORDERED: Nursing to Pharmacy Communication SCH (02:15)
[2023-03-26] MEDS ORDERED: ONDANSETRON INJ 2 MG/ML 2 ML VIAL IV STA (04:14)
[2023-03-26] MEDS: DOXYCYCLINE HYCLATE 100 MG in DEXTROSE 5% MINI-B 100 ML IV SCH (05:31)
[2023-03-26] MEDS: PIPER/TAZO 4.5g in D5W MINI-B 100 ML IV SCH ×3 (07:20→22:01)
[2023-03-26] MEDS: POLYETHYLENE (MIRALAX) 17 GM PACK PO SCH (08:35)
[2023-03-26] MEDS: CALCIUM 600MG + VIT D 400 IU TAB PO SCH (08:35)
[2023-03-26] MEDS: ENOXAPARIN INJ 40 MG/0.4 ML SYR SQ SCH (08:35)
[2023-03-26] MEDS: DOCUSATE SODIUM/SENNA 50/8.6MG TAB PO SCH ×2 (08:35→20:40)
[2023-03-26] MEDS: amLODIPine BESYLATE 5 MG TAB PO SCH (08:35)
[2023-03-26] MEDS: SODIUM CHLORIDE 1 GM TABLET PO SCH ×2 (08:35→20:40)
[2023-03-26] MEDS: IPRATROPIUM BROMIDE NASAL SPRAY 0.06% 15ML NAE SCH ×2 (08:36→20:41)
[2023-03-26] MEDS: FLUTICASONE PROPIONATE NA SPR 16 GM BTL SCH (08:36)
[2023-03-26] MEDS: PANTOprazole 40 MG in SYRINGE 0 ML IV SCH (08:36)
[2023-03-26] MEDS ORDERED: VANCOMYCIN LEVEL ONE (10:00)
[2023-03-26 10:34] LABS: Hematocrit (blood only) 29.2 % (37.0-47.0); Hemoglobin 9.5 g/dl (12.0-16.0); Mean Corpuscular Hemoglobin 27.4 pg (25.0-34.0); Mean Corpuscular Hgb Conc 32.5 g/dL (32.0-36.0); Mean Corpuscular Volume 84.1 fL (80.0-100.0); Mean Platelet Volume 9.6 fL (9.4-12.4); Platelet Count 418 K/uL (130-400); RDW Coefficient of Variation 13.6 % (11.5-14.5); RDW Standard Deviation 41.5 fL (36.4-46.3); Red Blood Count 3.47 M/uL (4.20-5.40); White Blood Count 8.14 K/ul (4.8-10.8)
[2023-03-26 10:50] LABS: BUN Creatinine Ratio 22.7 (10-20); Creatinine Clr Calc Pharmacy 119.3 ml/min; Est GFR (African American) 113.6 ml/min; Est GFR (Non-African American) 98.1 ml/min; Magnesium 1.7 mg/dl (1.7-2.4); Phosphorus 3.6 mg/dl (2.5-4.9); Potassium 3.5 mmol/L (3.5-5.1)
[2023-03-26] MEDS: ASPIRIN 300 MG SUPP PR SCH (11:13)
[2023-03-26] MEDS: FAMOTIDINE 20 MG in SYRINGE 3 ML IV SCH ×2 (11:13→20:41)
[2023-03-26] MEDS: TOCOPHERYL, DL-ALPHA 400 UNITS 180 MG CAP PO SCH (11:24)
--- NOTE | 2023-03-26 11:39 | Pharmacy Report ---
Pharmacy PK ABX Note - Date of Service March 26, 2023 - Assessment and Plan Assessment 03/26 * Random level today of 19.1 mcg/mL associated with a therapeutic AUC. No change to vancomycin. Repeat level in ~3 days, or sooner if SCr / clinical status changes 03/24 * 03/21 CSF culture updated to coag neg staph. ID now recommending antibiotic change to doxycycline (possible tick bourne disease) + vancomycin + zosyn as patient has continued fever. Remdesivir discontinued. * Level today 12.2 mcg/mL suggests AUCss 459 mg/L.hr with 77% probability. Given continued fever will adjust dose to target AUCss 547 with 95% probability * 03/23 * Ms Palacios is a 77 year old F receiving vanco + ceftriaxone + ampicillin for possible meningitis per recommendations of ID benefits consultant * Pt was admitted on 03/11 for significant weakness, following an admission for COVID-19 (diagnosed 03/01/23). * Relevant micro: 03/21 CSF culture growing staph species, 03/21 CSF biofire negative, multiple serologies pending (Lyme, RPR, EBV, cryptococcus, Legionella, HIV) Plan Vancomycin * Maintenance dose: 1500 mg IV every 12 hours * Regimen is predicted to achieve target AUC/AIDA of 400-600 mg/L.hr Pharmacy will continue to follow and will adjust dose/frequency as necessary. Thank you. Pharmacy has transitioned to AUC monitoring for vancomycin. AUC/AIDA is the preferred PK/PD target and is associated with decreased risk of nephrotoxicity compared to traditional trough targets.
--- NOTE | 2023-03-26 12:39 | Hospitalist Progress Note ---
Date of Service March 26, 2023 Assessment & Plan (1) Weakness: Plan: 77 yo F with mild intermittent asthma, hypertension, irritable bowel syndrome, GERD, chronic interstitial cystitis without hematuria, generalized osteoarthritis, memory disturbance, factor V Leiden mutation, history of CVA, hyponatremia, history of DVT comes because of weakness. Patient was recently diagnosed COVID on March 01 and got admitted and was discharged on March 03. Patient states after going home she was fine for few days. Then she was feeling very weak and tired. Not able to ambulate much. Legs are sore. This reason she came back. Thinks she might have low-grade fever. A week ago she had some chest discomfort that got resolved. Generalized weakness likely secondary to COVID-19 virus infection COVID test has been positive on 03/01/2023 and again 03/11/2023 during this admission Initially, patient's generalized weakness was improving, was able to eat and walking around the her bed with physical therapy Neurology was consulted and felt no further w/u needed likely all in setting of illness and deconditioning Starting Tuesday, patient developed generalized weakness again On Tuesday, was showing profound generalized weakness, Signs of possible aspiration Neurologist re-consulted Recommend lumbar puncture and check CK level Status post lumbar puncture WBC, glucose, protein within normal limits Gram stain/ csf cultx: Coag negat. staph Positive fever starting on 03/21/23 -daptomycin plus Zosyn started Remdesivir also started given patient's increased CRP - will stop now (03/24, pt received 4 doses - this was discussed w/ ID) Chest x-ray: No pneumonia. Repeated CXR - some pulm vasc congestion, R basilar opacity Urine analysis: Negative, will repeat w/ straigh cath Blood cultures: Pending Fungal cultx : pending 03/22-03/23, patient more awake and alert but still having generalized weakness, fever 03/24 very drowsy, barely responsive, febrile 03/25 -03/26, Afebrile and clinically improved, awake,alert, following commands, but continues to be weak Neurology and infectious disease consulted Neurology (03/22) - Lethargy in a 77F with a PMH of recent COVID 19 infection, HTN, prior DVT and spinal stenosis. On exam she is lethargic and follows simple commands. There is no clear focality to her exam/position may be issue By report she has had similar (less severe) episodes in the past with immunizations. GBS is ruled out due to low proteins in the CSF, CSF is also negative for infections Stroke or cervical spinal pathology, another potential cause could be post-COVID 19 fatigue or an underlying muscle disorder. Plan -- MRI of the brain without contrast, MRI of the C-spine with contrast Myasthenia gravis antibodies - pending Brain MRI - 1. Mild age-related findings. 2. No acute infarct, bleed, or acute intracranial abnormality. Cervical spine MRI - 1. Moderate prevertebral edema, intramuscular edema in the posterior muscles, and interspinous ligamentous edema, nonspecific, may be inflammatory/infectious or posttraumatic.2. No epidural abscess or abnormal cord signal.3. Borderline central spinal stenosis C4-5, C5-6 and C6-7, degenerative. 03/23 -discussed over the phone with neurology results of MRIs, noted extensive inflammation, and considering high-dose steroid. This will need to be further discussed with ID. ID (03/22/23) - Neurology initially attributed her weakness to deconditioning. On follow up, they recommended an LP (03/20). Until the LP was completed, all cultures were negative. Chest imaging was also negative. The CSF is currently growing GPC. The patient is being treated with daptomycin and Zosyn. I cannot explain the patient's persistent symptoms. Until the organism in the CSF has been identified, I would use CLIENT ENGAGEMENT SPECIALIST-dosed ABX (vancomycin plus ceftriaxone/cefepime plus ampicillin). However, my suspicion for a true bacterial meningitis is low. If she had a typical organism (eg pneumococcus) I suspect that she would be much sicker. For completeness, I would order: CT A/P, HIV Ag/AB, CSF VDRL, syphilis screen, fungal BCX, Legionella uAG. The remainder of the AMS workup will be deferred to Neurology. CT abd/pelvis- 1. Subtle right perinephric edema is nonspecific, cannot rule out right pyelonephritis, correlate clinically and with labs. 2. Possible proctitis or stercoral colitis. 3. Possible mild gastroenteritis or ileus. 4. Bibasilar infiltrates and pleural effusion, greater on the right, are nonspecific, cannot rule out pneumonia. 5. Normal appendix. Blood work - ordered and pending 03/24 - discussed with ID, as patient still febrile last evening and results of CSF now showing coag negative staph, likely contaminant. Stopping ampicillin, remdesivir. Recommend to continue with Vanco Zosyn, and can consider doxycycline. Tickborne panel, UA repeat with straight cath, LDH and reticulocyte count. 03/25 - Pt is awake, alert , following commands. Afebrile today but febrile yesterday. Currently on vanco, zosyn, doxy. + LLQ abd. discomfort, + diarrhea. Will test for c. diff. 03/26 Afebrile. c. diff negative. no abd. pain. awake and alert. Speech therapy evaluation: Recommend n.p.o. status given patient's generalized weakness - will re-test as she is awake and appears somewhat stronger Watch Crystal Grinder consulted for possible initiation of tube feeding via core safe/ PPN, started PPN Continue IV fluids for now COVID 19 virus infection Remains asymptomatic otherwise but very weak COVID precautions Does not require any more COVID precautions she is about 14 days out of initial COVID infection Remdesivir added in light of elevated CRP. Received 4 doses, discussed with ID remdesivir stopped on 03/24 Right upper ext edema US:IMPRESSION: No venous thrombus within the right upper extremity. History of asthma Continue home inhalers No acute symptoms Hypertension On amlodipine bp stable GERD Omeprazole History of hyponatremia On salt tablets - can't take Po now Na stable at 135 cont. to monitor History of factor V Leiden deficiency History of DVT Seems current not on anticoagulation Needs follow-up Bowel regimen no BM for days daily miralax and Senna S BID had loose stool and abd. discomfort. c. diff negative. DVT prophylaxis Lovenox Disposition Will need senior living facility when medically stable for discharge Admission and Anticipated Discharge Date Admission Date: March 11, 2023 Subjective Follow-up for generalized weakness, etc. Seen laying in bed, today she is awake and alert, answers appropriately, and following commands. Now afebrile. Denies cough, shortness of breath, chest pain She had some abdominal discomfort and diarrhea previously. C. difficile negative. denies any abd. discomfort now. Discussed previously in detail with infectious disease, hold steroids for now. Patient had fever despite being on antibiotics. CSF results now available, showing coag negative staph, and this is likely contaminant. Switched antibiotics to Vanco Zosyn, and also added doxycycline. Tickborne panel ordered, and repeated UA with straight cath. Peripheral smear as well for tickborne panel ordered, LDH and reticulocyte count Review of Systems Review of Systems: All systems reviewed & are unremarkable except as noted in Subjective Physical Exam Physical Exam: General- WD/WN elderly F + chronically ill appearing, very weak appearing however awake and improved from previous exam Eyes- anicteric Neck- no JVD Lungs- clear breath sounds bilaterally, no rales/wheezes Heart- normal rate, regular rhythm; no murmurs Abdomen- normal bowel sounds, nondistended, soft, nontender Extremities- no pretibial edema, no calf tenderness Neuro- awake and alert today, answers appropriately, following commands, generally weak but able to move extremities somewhat Skin- warm & dry, pale Results & Data Results & Data Vital Signs (Past 12 Hours) Vital Signs Temp Pulse Pulse Resp BP Pulse Ox O2 Del Method 03/26/23 11:57 36.4 C L 79 16 133/75 93 Room Air 03/26/23 07:40 37.1 C 81 16 129/72 94 Room Air 03/26/23 07:36 80 03/26/23 05:20 37.1 C 86 14 133/74 94 Room Air Laboratory Results 03/26/23 03/26/23 03/25/23 Range/Units 10:10 05:04 Unknown WBC 8.14 (4.8-10.8) K/ul RBC 3.47 L (4.20-5.40) M/uL Hgb 9.5 L (12.0-16.0) g/dl Hct 29.2 L (37.0-47.0) % MCV 84.1 (80.0-100.0) fL MCH 27.4 (25.0-34.0) pg MCHC 32.5 (32.0-36.0) g/dL RDW Std Deviation 41.5 (36.4-46.3) fL RDW Coeff of Chrissie 13.6 (11.5-14.5) % Plt Count 418 H (130-400) K/uL MPV 9.6 (9.4-12.4) fL Sodium 136 (136-145) mmol/L Potassium 3.5 (3.5-5.1) mmol/L Chloride 102 (98-107) mmol/L Carbon Dioxide 27 (21-32) mmol/L Anion Gap 7 (3-11) BUN 10 (6-23) mg/dl Creatinine 0.44 L (0.6-1.2) mg/dl Est Cr Clr Drug Dosing 119.3 ml/min Est GFR ( Amer) 113.6 ml/min Est GFR (Non-Af Amer) 98.1 ml/min BUN/Creatinine Ratio 22.7 H (10-20) Glucose 120 H (70-99(Fasting)) mg/dl POC Glucose 101 H (70-99) mg/dl Calcium 8.0 L (8.6-10.3) mg/dl Phosphorus 3.6 (2.5-4.9) mg/dl Magnesium 1.7 (1.7-2.4) mg/dl Stl C. diff Tox B Gene Negative Cdiff Gene (Neg) Random Vancomycin 19.1 (10-20) mcg/ml Medications Administered Current Inpatient Medications Acetaminophen (Acetaminophen 325 Mg Tab) 650 mg PO Q4H PRN PRN Reason: FEVER OR PAIN Stop: 04/17/23 09:41 Last Admin: 03/22/23 05:38 Dose: 650 mg Albuterol (Albuterol Hfa 8 Gm Inhaler) 2 puffs INH QID PRN PRN Reason: Shortness Of Breath Or Wheezin Stop: 04/11/23 00:14 Amlodipine Besylate (Amlodipine Besylate 5 Mg Tab) 2.5 [facility] [place] Stop: 04/23/23 08:59 Last Admin: 03/26/23 08:35 Dose: Not Given Aspirin (Aspirin 325 Mg Ectab) 325 mg PO QAM [facility] Stop: 04/11/23 08:59 Last Admin: 03/23/23 10:10 Dose: Not Given Aspirin (Aspirin 300 Mg Supp) 300 mg OK DAILY [facility] Stop: 04/23/23 08:59 Last Admin: 03/26/23 11:13 Dose: Not Given Calcium/Vitamin D (Calcium 600mg + Vit D 400 Iu Tab) 1 tab PO QDL [facility] Stop: 04/11/23 11:29 Last Admin: 03/26/23 08:35 Dose: Not Given Enoxaparin Sodium (Enoxaparin Inj 40 Mg/0.4 Ml Syr) 40 mg SQ QAM [facility] Stop: 04/11/23 08:59 Last Admin: 03/26/23 08:35 Dose: 40 mg Famotidine (Famotidine 20 Mg Tab) 20 mg PO BID [facility] Stop: 04/11/23 08:59 Last Admin: 03/23/23 10:11 Dose: Not Given Fluticasone Propionate (Fluticasone Propionate Na Spr 16 Gm Btl) 2 sprays NA QAM JEANMARIE Stop: 04/11/23 08:59 Last Admin: 03/26/23 08:36 Dose: 2 sprays Hydralazine HCl (Hydralazine Hcl 20 Mg/Ml Vial) 5 mg IV Q6H PRN PRN Reason: Hypertension Stop: 04/22/23 20:21 Pantoprazole Sodium 40 mg/ (Syringe) 10 mls @ 5 mls/min IV DAILY [facility] Stop: 04/20/23 08:59 Last Admin: 03/26/23 08:36 Dose: 5 mls/min Famotidine 20 mg/ Syringe 5 mls @ 2.5 mls/min IV BID [facility] Stop: 04/22/23 20:59 Last Admin: 03/26/23 11:13 Dose: Not Given Dextrose (D10w) 1,000 mls @ 0 mls/hr IV .Q0M PRN PRN Reason: protocol (see label comments) Stop: 04/23/23 13:17 Doxycycline Hyclate 100 mg/ (Dextrose) 100 mls @ 50 mls/hr IV Q12H [facility] Stop: 03/26/23 13:59 Last Infusion: 03/26/23 07:41 Dose: Infused Piperacillin Sod/Tazobactam (Sod 4.5 gm/ Dextrose) 100 mls @ 25 mls/hr IV Q8H [facility]; Protocol Stop: 04/03/23 19:59 Last Infusion: 03/26/23 11:22 Dose: Infused Vancomycin HCl 1,500 mg/ (Sodium Chloride) 530 mls @ 200 mls/hr IV Q12H [facility] Stop: 04/02/23 11:59 Last Infusion: 03/26/23 04:07 Dose: Infused Acetaminophen (Ofirmev) 1,000 mg in 100 mls @ 400 mls/hr IV Q8H PRN PRN Reason: Fever or headache Stop: 03/27/23 19:09 Last Infusion: 03/24/23 19:58 Dose: Infused Amino Acids 1,073 ml/ (Nutrition (Parenteral)) 1,073 mls @ 44.7 mls/hr IV .Q24H [facility]; Protocol Stop: 03/26/23 15:59 Last Infusion: 03/25/23 20:07 Dose: 44.7 mls/hr Amino Acids 1,073 ml/ (Nutrition (Parenteral)) 1,073 mls @ 44.7 mls/hr IV .Q24H [facility]; Protocol Stop: 03/27/23 15:59 Fat Emulsion-Rupert Oil/Soybean Oil (Clinolipid 20% Iv Fat Emulsion) 250 mls @ 41.667 mls/hr IV .Q6H [facility] Stop: 03/26/23 21:59 Ipratropium [place] (Ipratropium [place] Nasal [place] 0.06% 15ml) 1 sprays MARINO BID [facility] Stop: 04/11/23 08:59 Last Admin: 03/26/23 08:36 Dose: 1 sprays Meclizine HCl (Meclizine Hcl 25 Mg Tab) 25 mg PO HS PRN PRN Reason: dizzyiness Stop: 04/11/23 00:14 Miscellaneous (Stop Clinolipid) 1 each N/A TODAY@22 [facility] Stop: 04/24/23 21:59 Last Admin: 03/25/23 23:06 Dose: Not Given Miscellaneous Information (Vancomycin Consult Active) 1 each N/A UD PRN PRN Reason: Consult Stop: 04/22/23 00:02 Miscellaneous Information (Tpn/Ppn Consult Pharmacy) 1 each N/A UD PRN PRN Reason: Consult Stop: 04/22/23 11:05 Montelukast Sodium (Montelukast Sodium 10 Mg Tablet) 10 mg PO HS [facility] Stop: 04/11/23 20:59 Last Admin: 03/25/23 20:13 Dose: Not Given Multivitamins (Multivitamin Tab) 1 tab PO QDL [facility] Stop: 04/11/23 11:29 Last Admin: 03/25/23 11:30 Dose: Not Given Polyethylene Glycol (Polyethylene (Miralax) 17 Gm Pack) 17 gm PO DAILY PRN PRN Reason: Constipation Stop: 04/11/23 00:14 Polyethylene Glycol (Polyethylene (Miralax) 17 Gm Pack) 17 gm PO DAILY [facility] Stop: 04/15/23 13:44 Last Admin: 03/26/23 08:35 Dose: Not Given Senna/Docusate Sodium (Docusate Sodium/Senna 50/8.6mg Tab) 1 tab PO BID [facility] Stop: 04/15/23 20:59 Last Admin: 03/26/23 08:35 Dose: Not Given Sodium Chloride (Sodium Chloride 1 Gm Tablet) 1 gm PO BID [facility] Stop: 04/11/23 08:59 Last Admin: 03/26/23 08:35 Dose: Not Given Trolamine Salicylate (Trolamine Salicylate 10% Crm 255 Appln/85 Gm Tube) 1 appln EXT BID PRN PRN Reason: Pain Stop: 04/11/23 00:14 Vitamin E (Tocopheryl, Dl-Alpha 400 Units 180 Mg Cap) 400 units PO QDL [facility] Stop: 04/11/23 11:29 Last Admin: 03/26/23 11:24 Dose: Not Given
[2023-03-26] MEDS ORDERED: [UNRECOGNIZED DRUG - OTHER] IV SCH (16:00)
[2023-03-26] MEDS ORDERED: CLINOLIPID 20% IV FAT EMULSION 250 ML IV SCH (16:00)
[2023-03-26] MEDS ORDERED: PERIPHERAL TPN IV SCH (16:00)
[2023-03-26] MEDS: MONTELUKAST SODIUM 10 MG TABLET PO SCH (20:40)
[2023-03-26] MEDS: DICLOFENAC SOD 1% GEL 100 GM TUBE EXT SCH (20:42)
[2023-03-26] MEDS: STOP CLINOLIPID SCH (22:02)
[2023-03-27] MEDS: VANCOMYCIN HCL 1,500 MG in SODIUM CHLORIDE 0.9% 500 ML IV SCH ×2 (03:18→13:00)
[2023-03-27] MEDS: ACETAMINOPHEN 1,000 MG/100 ML VIAL IV PRN (06:18)
[2023-03-27] MEDS: PIPER/TAZO 4.5g in D5W MINI-B 100 ML IV SCH ×2 (06:18→15:45)
[2023-03-27 07:45] LABS: Hematocrit (blood only) 30.6 % (37.0-47.0); Hemoglobin 9.8 g/dl (12.0-16.0); Mean Corpuscular Hemoglobin 27.2 pg (25.0-34.0); Mean Platelet Volume 9.6 fL (9.4-12.4); Platelet Count 442 K/uL (130-400); RDW Coefficient of Variation 13.5 % (11.5-14.5); RDW Standard Deviation 42.7 fL (36.4-46.3); White Blood Count 9.46 K/ul (4.8-10.8)
--- NOTE | 2023-03-27 07:48 | Hospitalist Progress Note ---
Date of Service March 27, 2023 Assessment & Plan (1) Weakness: Plan: 77 yo F with mild intermittent asthma, hypertension, irritable bowel syndrome, GERD, chronic interstitial cystitis without hematuria, generalized osteoarthritis, memory disturbance, factor V Leiden mutation, history of CVA, hyponatremia, history of DVT comes because of weakness. Patient was recently diagnosed COVID on March 01 and got admitted and was discharged on March 03. Patient states after going home she was fine for few days. Then she was feeling very weak and tired. Not able to ambulate much. Legs are sore. This reason she came back. Thinks she might have low-grade fever. A week ago she had some chest discomfort that got resolved. Generalized weakness likely secondary to COVID-19 virus infection COVID test has been positive on 03/01/2023 and again 03/11/2023 during this admission Initially, patient's generalized weakness was improving, was able to eat and walking around the her bed with physical therapy Neurology was consulted and felt no further w/u needed likely all in setting of illness and deconditioning Starting Tuesday, patient developed generalized weakness again On Tuesday, was showing profound generalized weakness, Signs of possible aspiration Neurologist re-consulted Recommend lumbar puncture and check CK level Status post lumbar puncture WBC, glucose, protein within normal limits Gram stain/ csf cultx: Coag negat. staph Positive fever starting on 03/21/23 -daptomycin plus Zosyn started Remdesivir also started given patient's increased CRP - will stop now (03/24, pt received 4 doses - this was discussed w/ ID) Chest x-ray: No pneumonia. Repeated CXR - some pulm vasc congestion, R basilar opacity Urine analysis: Negative, will repeated - negat. Blood cultures: Pending Fungal cultx : pending 03/22-03/23, patient more awake and alert but still having generalized weakness, fever 03/24 very drowsy, barely responsive, febrile 03/25 -03/27, Afebrile and clinically improved, awake,alert, following commands, but continues to be weak Neurology and infectious disease consulted Neurology (03/22) - Lethargy in a 77F with a PMH of recent COVID 19 infection, HTN, prior DVT and spinal stenosis. On exam she is lethargic and follows simple commands. There is no clear focality to her exam/position may be issue By report she has had similar (less severe) episodes in the past with immunizations. GBS is ruled out due to low proteins in the CSF, CSF is also negative for infections Stroke or cervical spinal pathology, another potential cause could be post-COVID 19 fatigue or an underlying muscle disorder. Plan -- MRI of the brain without contrast, MRI of the C-spine with contrast Myasthenia gravis antibodies - pending Brain MRI - 1. Mild age-related findings. 2. No acute infarct, bleed, or acute intracranial abnormality. Cervical spine MRI - 1. Moderate prevertebral edema, intramuscular edema in the posterior muscles, and interspinous ligamentous edema, nonspecific, may be inflammatory/infectious or posttraumatic.2. No epidural abscess or abnormal cord signal.3. Borderline central spinal stenosis C4-5, C5-6 and C6-7, degenerative. 03/23 -discussed over the phone with neurology results of MRIs, noted extensive inflammation, and considering high-dose steroid. This will need to be further discussed with ID. ID (03/22/23) - Neurology initially attributed her weakness to deconditioning. On follow up, they recommended an LP (03/20). Until the LP was completed, all cultures were negative. Chest imaging was also negative. The CSF is currently growing GPC. The patient is being treated with daptomycin and Zosyn. I cannot explain the patient's persistent symptoms. Until the organism in the CSF has been identified, I would use [employer]ER-dosed ABX (vancomycin plus ceftriaxone/cefepime plus ampicillin). However, my suspicion for a true bacterial meningitis is low. If she had a typical organism (eg pneumococcus) I suspect that she would be much sicker. For completeness, I would order: CT A/P, HIV Ag/AB, CSF VDRL, syphilis screen, fungal BCX, Legionella uAG. The remainder of the AMS workup will be deferred to Neurology. CT abd/pelvis- 1. Subtle right perinephric edema is nonspecific, cannot rule out right pyelonephritis, correlate clinically and with labs. 2. Possible proctitis or stercoral colitis. 3. Possible mild gastroenteritis or ileus. 4. Bibasilar infiltrates and pleural effusion, greater on the right, are nonspecific, cannot rule out pneumonia. 5. Normal appendix. Blood work - ordered and pending 03/24 - discussed with ID, as patient still febrile last evening and results of CSF now showing coag negative staph, likely contaminant. Stopping ampicillin, remdesivir. Recommend to continue with Vanco Zosyn, and can consider doxycycline. Tickborne panel, UA repeat with straight cath, LDH and reticulocyte count. 03/25 - Pt is awake, alert , following commands. Afebrile today but febrile yesterday. Currently on vanco, zosyn, doxy. + LLQ abd. discomfort, + diarrhea. Will test for c. diff. 03/26 Afebrile. c. diff negative. no abd. pain. awake and alert. Speech therapy evaluation: Recommend n.p.o. 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 for now COVID 19 virus infection Remains asymptomatic otherwise but very weak COVID precautions Does not require any more COVID precautions she is about 14 days out of initial COVID infection Remdesivir added in light of elevated CRP. Received 4 doses, discussed with ID remdesivir stopped on 03/24 Right upper ext edema US:IMPRESSION: No venous thrombus within the right upper extremity. History of asthma Continue home inhalers No acute symptoms Hypertension On amlodipine bp stable GERD Omeprazole History of hyponatremia On salt tablets - can't take Po now Na stable at 135 cont. to monitor History of factor V Leiden deficiency History of DVT Seems current not on anticoagulation Needs follow-up Bowel regimen no BM for days daily miralax and Senna S BID had loose stool and abd. discomfort. c. diff negative. DVT prophylaxis Lovenox Disposition Will need half-way facility when medically stable for discharge Admission and Anticipated Discharge Date Admission Date: March 11, 2023 Subjective Follow-up for generalized weakness, etc. Seen laying in bed, today she is awake and alert, answers appropriately, and following commands. Afebrile. Denies cough, shortness of breath, chest pain She had some abdominal discomfort and diarrhea previously. C. difficile negative. denies any abd. discomfort now. Discussed previously in detail with infectious disease, hold steroids for now. Patient had fever despite being on antibiotics. CSF results now available, showing coag negative staph, and this is likely contaminant. Switched antibiotics to Vanco Zosyn, and also added doxycycline. Tickborne panel ordered Review of Systems Review of Systems: All systems reviewed & are unremarkable except as noted in Subjective Physical Exam Physical Exam: General- WD/WN elderly F + chronically ill appearing, very weak appearing however awake and improved from previous exam Eyes- anicteric Neck- no JVD Lungs- clear breath sounds bilaterally, no rales/wheezes Heart- normal rate, regular rhythm; no murmurs Abdomen- normal bowel sounds, nondistended, soft, nontender Extremities- no pretibial edema, no calf tenderness Neuro- awake and alert today, answers appropriately, following commands, generally weak but able to move extremities somewhat Skin- warm & dry, pale Results & Data Results & Data Vital Signs (Past 12 Hours) Vital Signs Temp Pulse Pulse Resp BP Pulse Ox O2 Del Method 03/27/23 07:45 36.8 C 71 16 105/65 91 Room Air 03/27/23 05:55 82 03/27/23 02:00 36.8 C 79 20 134/76 94 Room Air 03/26/23 23:53 Room Air 03/26/23 23:40 87 03/26/23 22:05 36.7 C 84 18 133/72 93 Room Air Laboratory Results 03/27/23 03/27/23 03/26/23 Range/Units 06:13 05:55 23:59 WBC 9.46 (4.8-10.8) K/ul RBC 3.60 L (4.20-5.40) M/uL Hgb 9.8 L (12.0-16.0) g/dl Hct 30.6 L (37.0-47.0) % MCV 85.0 (80.0-100.0) fL MCH 27.2 (25.0-34.0) pg MCHC 32.0 (32.0-36.0) g/dL RDW Std Deviation 42.7 (36.4-46.3) fL RDW Coeff of Chrissie 13.5 (11.5-14.5) % Plt Count 442 H (130-400) K/uL MPV 9.6 (9.4-12.4) fL Sodium 138 (136-145) mmol/L Potassium 3.2 L (3.5-5.1) mmol/L Chloride 103 (98-107) mmol/L Carbon Dioxide 28 (21-32) mmol/L Anion Gap 7 (3-11) BUN 10 (6-23) mg/dl Creatinine 0.48 L (0.6-1.2) mg/dl Est Cr Clr Drug Dosing 107.1 ml/min Est GFR ( Amer) 110.4 ml/min Est GFR (Non-Af Amer) 95.3 ml/min BUN/Creatinine Ratio 20.8 H (10-20) Glucose 103 H (70-99(Fasting)) mg/dl POC Glucose 99 95 (70-99) mg/dl Calcium 8.3 L (8.6-10.3) mg/dl Phosphorus 3.7 (2.5-4.9) mg/dl Magnesium 1.7 (1.7-2.4) mg/dl Random Vancomycin (10-20) mcg/ml 03/26/23 03/26/23 Range/Units 18:27 10:10 WBC 8.14 (4.8-10.8) K/ul RBC 3.47 L (4.20-5.40) M/uL Hgb 9.5 L (12.0-16.0) g/dl Hct 29.2 L (37.0-47.0) % MCV 84.1 (80.0-100.0) fL MCH 27.4 (25.0-34.0) pg MCHC 32.5 (32.0-36.0) g/dL RDW Std Deviation 41.5 (36.4-46.3) fL RDW Coeff of Chrissie 13.6 (11.5-14.5) % Plt Count 418 H (130-400) K/uL MPV 9.6 (9.4-12.4) fL Sodium 136 (136-145) mmol/L Potassium 3.5 (3.5-5.1) mmol/L Chloride 102 (98-107) mmol/L Carbon Dioxide 27 (21-32) mmol/L Anion Gap 7 (3-11) BUN 10 (6-23) mg/dl Creatinine 0.44 L (0.6-1.2) mg/dl Est Cr Clr Drug Dosing 119.3 ml/min Est GFR ( Amer) 113.6 ml/min Est GFR (Non-Af Amer) 98.1 ml/min BUN/Creatinine Ratio 22.7 H (10-20) Glucose 120 H (70-99(Fasting)) mg/dl POC Glucose 106 H (70-99) mg/dl Calcium 8.0 L (8.6-10.3) mg/dl Phosphorus 3.6 (2.5-4.9) mg/dl Magnesium 1.7 (1.7-2.4) mg/dl Random Vancomycin 19.1 (10-20) mcg/ml Medications Administered Current Inpatient Medications Acetaminophen (Acetaminophen 325 Mg Tab) 650 mg PO Q4H PRN PRN Reason: FEVER OR PAIN Stop: 04/17/23 09:41 Last Admin: 03/22/23 05:38 Dose: 650 mg Albuterol (Albuterol Hfa 8 Gm Inhaler) 2 puffs INH QID PRN PRN Reason: Shortness Of Breath Or Wheezin Stop: 04/11/23 00:14 Amlodipine Besylate (Amlodipine Besylate 5 Mg Tab) 2.5 mg PO [facility] Stop: 04/23/23 08:59 Last Admin: 03/26/23 08:35 Dose: Not Given Aspirin (Aspirin 325 Mg Ectab) 325 mg PO [facility] Stop: 04/11/23 08:59 Last Admin: 03/23/23 10:10 Dose: Not Given Aspirin (Aspirin 300 Mg Supp) 300 mg ND DAILY [facility] Stop: 04/23/23 08:59 Last Admin: 03/26/23 11:13 Dose: Not Given Calcium/Vitamin D (Calcium 600mg + Vit D 400 Iu Tab) 1 tab PO QDL [facility] Stop: 04/11/23 11:29 Last Admin: 03/26/23 08:35 Dose: Not Given Diclofenac Sodium (Diclofenac Sod 1% Gel 100 Gm Tube) 2 gm EXT BID [facility]; Protocol Stop: 04/25/23 20:59 Last Admin: 03/26/23 20:42 Dose: 2 gm Enoxaparin Sodium (Enoxaparin Inj 40 Mg/0.4 Ml Syr) 40 mg SQ [facility] Stop: 04/11/23 08:59 Last Admin: 03/26/23 08:35 Dose: 40 mg Famotidine (Famotidine 20 Mg Tab) 20 mg PO BID [facility] Stop: 04/11/23 08:59 Last Admin: 03/23/23 10:11 Dose: Not Given Fluticasone Propionate (Fluticasone Propionate Na Spr 16 Gm Btl) 2 sprays NA QAM [facility] Stop: 04/11/23 08:59 Last Admin: 03/26/23 08:36 Dose: 2 sprays Hydralazine HCl (Hydralazine Hcl 20 Mg/Ml Vial) 5 mg IV Q6H PRN PRN Reason: Hypertension Stop: 04/22/23 20:21 Pantoprazole Sodium 40 mg/ (Syringe) 10 mls @ 5 mls/min IV DAILY [facility] Stop: 04/20/23 08:59 Last Admin: 03/26/23 08:36 Dose: 5 mls/min Famotidine 20 mg/ Syringe 5 mls @ 2.5 mls/min IV BID [facility] Stop: 04/22/23 20:59 Last Admin: 03/26/23 20:41 Dose: 2.5 mls/min Dextrose (D10w) 1,000 mls @ 0 mls/hr IV .Q0M PRN PRN Reason: protocol (see label comments) Stop: 04/23/23 13:17 Piperacillin Sod/Tazobactam (Sod 4.5 gm/ Dextrose) 100 mls @ 25 mls/hr IV Q8H [facility]; Protocol Stop: 04/03/23 19:59 Last Admin: 03/27/23 06:18 Dose: 25 mls/hr Vancomycin HCl 1,500 mg/ (Sodium Chloride) 530 mls @ 200 mls/hr IV Q12H [facility] Stop: 04/02/23 11:59 Last Infusion: 03/27/23 05:59 Dose: Infused Acetaminophen (Ofirmev) 1,000 mg in 100 mls @ 400 mls/hr IV Q8H PRN PRN Reason: Fever or headache Stop: 03/27/23 19:09 Last Infusion: 03/27/23 06:43 Dose: Infused Amino Acids 1,073 ml/ (Nutrition (Parenteral)) 1,073 mls @ 44.7 mls/hr IV .Q24H [facility]; Protocol Stop: 03/27/23 15:59 Last Admin: 03/26/23 16:23 Dose: 44.7 mls/hr Ipratropium Morris (Ipratropium Morris Nasal Eva 0.06% 15ml) 1 sprays MARINO BID [facility] Stop: 04/11/23 08:59 Last Admin: 03/26/23 20:41 Dose: 1 sprays Meclizine HCl (Meclizine Hcl 25 Mg Tab) 25 mg PO HS PRN PRN Reason: dizzyiness Stop: 04/11/23 00:14 Miscellaneous (Stop Clinolipid) 1 each N/A TODAY@22 [facility] Stop: 04/24/23 21:59 Last Admin: 03/26/23 22:02 Dose: 1 each Miscellaneous Information (Vancomycin Consult Active) 1 each N/A UD PRN PRN Reason: Consult Stop: 04/22/23 00:02 Miscellaneous Information (Tpn/Ppn Consult Pharmacy) 1 each N/A UD PRN PRN Reason: Consult Stop: 04/22/23 11:05 Montelukast Sodium (Montelukast Sodium 10 Mg Tablet) 10 mg PO HS [facility] Stop: 04/11/23 20:59 Last Admin: 03/26/23 20:40 Dose: Not Given Multivitamins (Multivitamin Tab) 1 tab PO QDL [facility] Stop: 04/11/23 11:29 Last Admin: 03/25/23 11:30 Dose: Not Given Polyethylene Glycol (Polyethylene (Miralax) 17 Gm Pack) 17 gm PO DAILY PRN PRN Reason: Constipation Stop: 04/11/23 00:14 Polyethylene Glycol (Polyethylene (Miralax) 17 Gm Pack) 17 gm PO DAILY [facility] Stop: 04/15/23 13:44 Last Admin: 03/26/23 08:35 Dose: Not Given Senna/Docusate Sodium (Docusate Sodium/Senna 50/8.6mg Tab) 1 tab PO BID [facility] Stop: 04/15/23 20:59 Last Admin: 03/26/23 20:40 Dose: Not Given Sodium Chloride (Sodium Chloride 1 Gm Tablet) 1 gm PO BID [facility] Stop: 04/11/23 08:59 Last Admin: 03/26/23 20:40 Dose: Not Given Trolamine Salicylate (Trolamine Salicylate 10% Crm 255 Appln/85 Gm Tube) 1 appln EXT BID PRN PRN Reason: Pain Stop: 04/11/23 00:14 Vitamin E (Tocopheryl, Dl-Alpha 400 Units 180 Mg Cap) 400 units PO QDL [facility] Stop: 04/11/23 11:29 Last Admin: 03/26/23 11:24 Dose: Not Given
[2023-03-27 08:05] LABS: BUN Creatinine Ratio 20.8 (10-20); Calcium 8.3 mg/dl (8.6-10.3); Creatinine Clr Calc Pharmacy 107.1 ml/min; Est GFR (African American) 110.4 ml/min; Est GFR (Non-African American) 95.3 ml/min; Magnesium 1.7 mg/dl (1.7-2.4); Phosphorus 3.7 mg/dl (2.5-4.9); Potassium 3.2 mmol/L (3.5-5.1)
[2023-03-27] MEDS: amLODIPine BESYLATE 5 MG TAB PO SCH (08:18)
[2023-03-27] MEDS: DOCUSATE SODIUM/SENNA 50/8.6MG TAB PO SCH ×2 (08:18→21:59)
[2023-03-27] MEDS: POLYETHYLENE (MIRALAX) 17 GM PACK PO SCH (08:19)
[2023-03-27] MEDS: SODIUM CHLORIDE 1 GM TABLET PO SCH ×2 (08:19→22:00)
[2023-03-27] MEDS: DICLOFENAC SOD 1% GEL 100 GM TUBE EXT SCH ×2 (08:20→21:52)
[2023-03-27] MEDS: PANTOprazole 40 MG in SYRINGE 0 ML IV SCH (08:21)
[2023-03-27] MEDS: ENOXAPARIN INJ 40 MG/0.4 ML SYR SQ SCH (08:21)
[2023-03-27] MEDS: FLUTICASONE PROPIONATE NA SPR 16 GM BTL SCH (08:22)
[2023-03-27] MEDS: IPRATROPIUM BROMIDE NASAL SPRAY 0.06% 15ML NAE SCH ×2 (08:23→22:24)
[2023-03-27] MEDS: ASPIRIN 300 MG SUPP PR SCH (08:34)
[2023-03-27] MEDS: FAMOTIDINE 20 MG in SYRINGE 3 ML IV SCH ×2 (08:34→22:24)
[2023-03-27] MEDS: POTASSIUM CHLORIDE / WTR 10 MEQ/100 ML PLCT IV SCH ×4 (10:08→14:15)
[2023-03-27] MEDS: CALCIUM 600MG + VIT D 400 IU TAB PO SCH (12:10)
[2023-03-27] MEDS: TOCOPHERYL, DL-ALPHA 400 UNITS 180 MG CAP PO SCH (12:10)
[2023-03-27] MEDS ORDERED: MAGNESIUM SULFATE / D5W 1 GM/100 ML BAG IV ONE ×2 (13:02→15:45)
[2023-03-27] MEDS ORDERED: PERIPHERAL TPN IV SCH (16:00)
[2023-03-27] MEDS ORDERED: [UNRECOGNIZED DRUG - OTHER] IV SCH (16:00)
[2023-03-27] MEDS ORDERED: CLINOLIPID 20% IV FAT EMULSION 250 ML IV SCH (16:00)
[2023-03-27] MEDS: MONTELUKAST SODIUM 10 MG TABLET PO SCH (22:00)
[2023-03-27] MEDS: STOP CLINOLIPID SCH (22:48)
[2023-03-28] MEDS: VANCOMYCIN HCL 1,500 MG in SODIUM CHLORIDE 0.9% 500 ML IV SCH (03:00)
[2023-03-28] MEDS: PIPER/TAZO 4.5g in D5W MINI-B 100 ML IV SCH ×4 (07:16→22:53)
[2023-03-28 07:57] LABS: Calcium 8.7 mg/dl (8.6-10.3); Creatinine Clr Calc Pharmacy 101.5 ml/min; Magnesium 1.8 mg/dl (1.7-2.4); Phosphorus 3.4 mg/dl (2.5-4.9); Potassium 3.5 mmol/L (3.5-5.1)
--- NOTE | 2023-03-28 08:10 | Hospitalist Progress Note ---
Date of Service March 28, 2023 Assessment & Plan (1) Weakness: Plan: 77 yo F with mild intermittent asthma, hypertension, irritable bowel syndrome, GERD, chronic interstitial cystitis without hematuria, generalized osteoarthritis, memory disturbance, factor V Leiden mutation, history of CVA, hyponatremia, history of DVT comes because of weakness. Patient was recently diagnosed COVID on March 01 and got admitted and was discharged on March 03. Patient states after going home she was fine for few days. Then she was feeling very weak and tired. Not able to ambulate much. Legs are sore. This reason she came back. Thinks she might have low-grade fever. A week ago she had some chest discomfort that got resolved. Generalized weakness likely secondary to COVID-19 virus infection COVID test has been positive on 03/01/2023 and again 03/11/2023 during this admission Initially, patient's generalized weakness was improving, was able to eat and walking around the her bed with physical therapy Neurology was consulted and felt no further w/u needed likely all in setting of illness and deconditioning Starting Tuesday, patient developed generalized weakness again On Tuesday, was showing profound generalized weakness, Signs of possible aspiration Neurologist re-consulted Recommend lumbar puncture and check CK level Status post lumbar puncture WBC, glucose, protein within normal limits Gram stain/ csf cultx: Coag negat. staph Positive fever starting on 03/21/23 -daptomycin plus Zosyn started Remdesivir also started given patient's increased CRP - will stop now (03/24, pt received 4 doses - this was discussed w/ ID) Chest x-ray: No pneumonia. Repeated CXR - some pulm vasc congestion, R basilar opacity Urine analysis: Negative, will repeated - negat. Blood cultures: Pending Fungal cultx : pending 03/22-03/23, patient more awake and alert but still having generalized weakness, fever 03/24 very drowsy, barely responsive, febrile 03/25 -03/27, Afebrile and clinically improved, awake,alert, following commands, but continues to be weak 03/28 Worked with speech therapist today. On my eval very tired and weak. Neurology and infectious disease consulted Neurology (03/22) - Lethargy in a 77F with a PMH of recent COVID 19 infection, HTN, prior DVT and spinal stenosis. On exam she is lethargic and follows simple commands. There is no clear focality to her exam/position may be issue By report she has had similar (less severe) episodes in the past with immunizations. GBS is ruled out due to low proteins in the CSF, CSF is also negative for infections Stroke or cervical spinal pathology, another potential cause could be post-COVID 19 fatigue or an underlying muscle disorder. Plan -- MRI of the brain without contrast, MRI of the C-spine with contrast Myasthenia gravis antibodies - pending Brain MRI - 1. Mild age-related findings. 2. No acute infarct, bleed, or acute intracranial abnormality. Cervical spine MRI - 1. Moderate prevertebral edema, intramuscular edema in the posterior muscles, and interspinous ligamentous edema, nonspecific, may be inflammatory/infectious or posttraumatic.2. No epidural abscess or abnormal cord signal.3. Borderline central spinal stenosis C4-5, C5-6 and C6-7, degenerative. 03/23 -discussed over the phone with neurology results of MRIs, noted extensive inflammation, and considering high-dose steroid. This will need to be further discussed with ID. ID (03/22/23) - Neurology initially attributed her weakness to deconditioning. On follow up, they recommended an LP (03/20). Until the LP was completed, all cultures were negative. Chest imaging was also negative. The CSF is currently growing GPC. The patient is being treated with daptomycin and Zosyn. I cannot explain the patient's persistent symptoms. Until the organism in the CSF has been identified, I would use SANITATION LEAD-dosed ABX (vancomycin plus ceftriaxone/cefepime plus ampicillin). However, my suspicion for a true bacterial meningitis is low. If she had a typical organism (eg pneumococcus) I suspect that she would be much sicker. For completeness, I would order: CT A/P, HIV Ag/AB, CSF VDRL, syphilis screen, fungal BCX, Legionella uAG. The remainder of the AMS workup will be deferred to Neurology. CT abd/pelvis- 1. Subtle right perinephric edema is nonspecific, cannot rule out right pyelonephritis, correlate clinically and with labs. 2. Possible proctitis or stercoral colitis. 3. Possible mild gastroenteritis or ileus. 4. Bibasilar infiltrates and pleural effusion, greater on the right, are nonspecific, cannot rule out pneumonia. 5. Normal appendix. Blood work - ordered and pending 03/24 - discussed with ID, as patient still febrile last evening and results of CSF now showing coag negative staph, likely contaminant. Stopping ampicillin, remdesivir. Recommend to continue with Vanco Zosyn, and can consider doxycycline. Tickborne panel, UA repeat with straight cath, LDH and reticulocyte count. 03/25 - Pt is awake, alert , following commands. Afebrile today but febrile yesterday. Currently on vanco, zosyn, doxy. + LLQ abd. discomfort, + diarrhea. Will test for c. diff. 03/26 Afebrile. c. diff negative. no abd. pain. awake and alert. Speech therapy evaluation: Recommend n.p.o. status given patient's generalized weakness - will re-test as she is awake and appears somewhat stronger Culinary Worker consulted for possible initiation of tube feeding via core safe/ PPN, started PPN - cont. for now COVID 19 virus infection Remains asymptomatic otherwise but very weak COVID precautions Does not require any more COVID precautions she is about 14 days out of initial COVID infection Remdesivir added in light of elevated CRP. Received 4 doses, discussed with ID remdesivir stopped on 03/24 Right upper ext edema US:IMPRESSION: No venous thrombus within the right upper extremity. History of asthma Continue home inhalers No acute symptoms Hypertension On amlodipine bp stable GERD Omeprazole History of hyponatremia On salt tablets - can't take Po now Na stable at 135 cont. to monitor History of factor V Leiden deficiency History of DVT Seems current not on anticoagulation Needs follow-up Bowel regimen no BM for days daily miralax and Senna S BID ordered initially -> then pt was npo for several days had loose stool and abd. discomfort. c. diff negative. DVT prophylaxis Lovenox Disposition Will need [facility] facility when medically stable for discharge Admission and Anticipated Discharge Date Admission Date: March 11, 2023 Subjective Follow-up for generalized weakness, etc. Seen laying in bed, in NAD. Earlier today more awake and worked with speech therapist. Afebrile. Denies cough, shortness of breath, chest pain She had some abdominal discomfort and diarrhea previously. C. difficile negative. denies any abd. discomfort now. Review of Systems Review of Systems: All systems reviewed & are unremarkable except as noted in Subjective Physical Exam Physical Exam: General- WD/WN elderly F + chronically ill appearing, very weak appearing however awake and in NAD Eyes- anicteric Neck- no JVD Lungs- clear breath sounds bilaterally, no rales/wheezes Heart- normal rate, regular rhythm; no murmurs Abdomen- normal bowel sounds, nondistended, soft, nontender Extremities- no pretibial edema, no calf tenderness Neuro- awake and alert answers appropriately, following commands, generally weak but able to move extremities somewhat Skin- warm & dry, pale Results & Data Results & Data Vital Signs (Past 12 Hours) Vital Signs Temp Pulse Pulse Resp BP BP Pulse Ox 03/28/23 07:23 03/28/23 05:52 82 03/28/23 02:00 36.6 C 90 18 184/81 H 94 03/27/23 22:00 36.6 C 85 18 150/74 H 93 03/27/23 20:33 O2 Del Method 03/28/23 07:23 Room Air 03/28/23 05:52 03/28/23 02:00 Room Air 03/27/23 22:00 Room Air 03/27/23 20:33 Room Air Laboratory Results 03/28/23 03/28/23 03/27/23 Range/Units 06:28 06:25 23:52 Sodium 137 (136-145) mmol/L Potassium 3.5 (3.5-5.1) mmol/L Chloride 100 (98-107) mmol/L Carbon Dioxide 29 (21-32) mmol/L Anion Gap 8 (3-11) BUN 8 (6-23) mg/dl Creatinine 0.50 L (0.6-1.2) mg/dl Est Cr Clr Drug Dosing 101.5 ml/min Est GFR ( Amer) 109.0 ml/min Est GFR (Non-Af Amer) 94.0 ml/min BUN/Creatinine Ratio 16.0 (10-20) Glucose 94 (70-99(Fasting)) mg/dl POC Glucose 93 104 H (70-99) mg/dl Calcium 8.7 (8.6-10.3) mg/dl Phosphorus 3.4 (2.5-4.9) mg/dl Magnesium 1.8 (1.7-2.4) mg/dl 03/27/23 Range/Units 18:32 Sodium (136-145) mmol/L Potassium (3.5-5.1) mmol/L Chloride (98-107) mmol/L Carbon Dioxide (21-32) mmol/L Anion Gap (3-11) BUN (6-23) mg/dl Creatinine (0.6-1.2) mg/dl Est Cr Clr Drug Dosing ml/min Est GFR ( Amer) ml/min Est GFR (Non-Af Amer) ml/min BUN/Creatinine Ratio (10-20) Glucose (70-99(Fasting)) mg/dl POC Glucose 94 (70-99) mg/dl Calcium (8.6-10.3) mg/dl Phosphorus (2.5-4.9) mg/dl Magnesium (1.7-2.4) mg/dl Medications Administered Current Inpatient Medications Acetaminophen (Acetaminophen 325 Mg Tab) 650 mg PO Q4H PRN PRN Reason: FEVER OR PAIN Stop: 04/17/23 09:41 Last Admin: 03/22/23 05:38 Dose: 650 mg Albuterol (Albuterol Hfa 8 Gm Inhaler) 2 puffs INH QID PRN PRN Reason: Shortness Of Breath Or Wheezin Stop: 04/11/23 00:14 Amlodipine Besylate (Amlodipine Besylate 5 Mg Tab) 2.5 mg PO [facility] Stop: 04/23/23 08:59 Last Admin: 03/27/23 08:18 Dose: Not Given Aspirin (Aspirin 325 Mg Ectab) 325 mg PO [facility] Stop: 04/11/23 08:59 Last Admin: 03/23/23 10:10 Dose: Not Given Aspirin (Aspirin 300 Mg Supp) 300 mg AL DAILY [facility] Stop: 04/23/23 08:59 Last Admin: 03/27/23 08:34 Dose: 300 mg Calcium/Vitamin D (Calcium 600mg + Vit D 400 Iu Tab) 1 tab PO QDL [facility] Stop: 04/11/23 11:29 Last Admin: 03/27/23 12:10 Dose: Not Given Diclofenac Sodium (Diclofenac Sod 1% Gel 100 Gm Tube) 2 gm EXT BID [facility]; Protocol Stop: 04/25/23 20:59 Last Admin: 03/27/23 21:52 Dose: 2 gm Enoxaparin Sodium (Enoxaparin Inj 40 Mg/0.4 Ml Syr) 40 mg SQ [facility] Stop: 04/11/23 08:59 Last Admin: 03/27/23 08:21 Dose: 40 mg Famotidine (Famotidine 20 Mg Tab) 20 mg PO BID [facility] Stop: 04/11/23 08:59 Last Admin: 03/23/23 10:11 Dose: Not Given Fluticasone Propionate (Fluticasone Propionate Na Spr 16 Gm Btl) 2 sprays NA QAM JEANMARIE Stop: 04/11/23 08:59 Last Admin: 03/27/23 08:22 Dose: 2 sprays Hydralazine HCl (Hydralazine Hcl 20 Mg/Ml Vial) 5 mg IV Q6H PRN PRN Reason: Hypertension Stop: 04/22/23 20:21 Pantoprazole Sodium 40 mg/ (Syringe) 10 mls @ 5 mls/min IV DAILY [facility] Stop: 04/20/23 08:59 Last Admin: 03/27/23 08:21 Dose: 5 mls/min Famotidine 20 mg/ Syringe 5 mls @ 2.5 mls/min IV BID [facility] Stop: 04/22/23 20:59 Last Admin: 03/27/23 22:24 Dose: 2.5 mls/min Dextrose (D10w) 1,000 mls @ 0 mls/hr IV .Q0M PRN PRN Reason: protocol (see label comments) Stop: 04/23/23 13:17 Piperacillin Sod/Tazobactam (Sod 4.5 gm/ Dextrose) 100 mls @ 25 mls/hr IV Q8H [facility]; Protocol Stop: 04/03/23 19:59 Last Admin: 03/28/23 07:16 Dose: 25 mls/hr Vancomycin HCl 1,500 mg/ (Sodium Chloride) 530 mls @ 200 mls/hr IV Q12H [facility] Stop: 04/02/23 11:59 Last Infusion: 03/28/23 05:45 Dose: Infused Amino Acids 1,073 ml/ (Nutrition (Parenteral)) 1,073 mls @ 44.7 mls/hr IV .Q24H [facility]; Protocol Stop: 03/28/23 15:59 Last Infusion: 03/27/23 17:51 Dose: 44.7 mls/hr Ipratropium [place] (Ipratropium [place] Nasal [place] 0.06% 15ml) 1 sprays MARINO BID [facility] Stop: 04/11/23 08:59 Last Admin: 03/27/23 22:24 Dose: 1 sprays Meclizine HCl (Meclizine Hcl 25 Mg Tab) 25 mg PO HS PRN PRN Reason: dizzyiness Stop: 04/11/23 00:14 Miscellaneous (Stop Clinolipid) 1 each N/A TODAY@22 [facility] Stop: 04/24/23 21:59 Last Admin: 03/27/23 22:48 Dose: 1 each Miscellaneous Information (Vancomycin Consult Active) 1 each N/A UD PRN PRN Reason: Consult Stop: 04/22/23 00:02 Miscellaneous Information (Tpn/Ppn Consult Pharmacy) 1 each N/A UD PRN PRN Reason: Consult Stop: 04/22/23 11:05 Montelukast Sodium (Montelukast Sodium 10 Mg Tablet) 10 mg PO HS [facility] Stop: 04/11/23 20:59 Last Admin: 03/27/23 22:00 Dose: Not Given Multivitamins (Multivitamin Tab) 1 tab PO QDL [facility] Stop: 04/11/23 11:29 Last Admin: 03/25/23 11:30 Dose: Not Given Polyethylene Glycol (Polyethylene (Miralax) 17 Gm Pack) 17 gm PO DAILY PRN PRN Reason: Constipation Stop: 04/11/23 00:14 Polyethylene Glycol (Polyethylene (Miralax) 17 Gm Pack) 17 gm PO DAILY [facility] Stop: 04/15/23 13:44 Last Admin: 03/27/23 08:19 Dose: Not Given Senna/Docusate Sodium (Docusate Sodium/Senna 50/8.6mg Tab) 1 tab PO BID [facility] Stop: 04/15/23 20:59 Last Admin: 03/27/23 21:59 Dose: Not Given Sodium Chloride (Sodium Chloride 1 Gm Tablet) 1 gm PO BID [facility] Stop: 04/11/23 08:59 Last Admin: 03/27/23 22:00 Dose: Not Given Trolamine Salicylate (Trolamine Salicylate 10% Crm 255 Appln/85 Gm Tube) 1 appln EXT BID PRN PRN Reason: Pain Stop: 04/11/23 00:14 Vitamin E (Tocopheryl, Dl-Alpha 400 Units 180 Mg Cap) 400 units PO QDL [facility] Stop: 04/11/23 11:29 Last Admin: 03/27/23 12:10 Dose: Not Given
[2023-03-28] MEDS: ASPIRIN 300 MG SUPP PR SCH (08:48)
[2023-03-28] MEDS: DICLOFENAC SOD 1% GEL 100 GM TUBE EXT SCH ×2 (09:03→23:16)
[2023-03-28] MEDS: DOCUSATE SODIUM/SENNA 50/8.6MG TAB PO SCH ×2 (09:03→23:16)
[2023-03-28] MEDS: amLODIPine BESYLATE 5 MG TAB PO SCH (09:03)
[2023-03-28] MEDS: PANTOprazole 40 MG in SYRINGE 0 ML IV SCH (09:04)
[2023-03-28] MEDS: POLYETHYLENE (MIRALAX) 17 GM PACK PO SCH (09:04)
[2023-03-28] MEDS: SODIUM CHLORIDE 1 GM TABLET PO SCH ×2 (09:05→23:16)
[2023-03-28] MEDS: TROLAMINE SALICYLATE 10% CRM 255 APPLN/85 GM TUBE EXT PRN (09:06)
[2023-03-28] MEDS: ENOXAPARIN INJ 40 MG/0.4 ML SYR SQ SCH (09:10)
[2023-03-28] MEDS: FAMOTIDINE 20 MG in SYRINGE 3 ML IV SCH ×2 (09:10→22:53)
[2023-03-28] MEDS: IPRATROPIUM BROMIDE NASAL SPRAY 0.06% 15ML NAE SCH ×2 (09:11→23:16)
[2023-03-28] MEDS: FLUTICASONE PROPIONATE NA SPR 16 GM BTL SCH (09:11)
[2023-03-28] MEDS: POTASSIUM CHLORIDE / WTR 10 MEQ/100 ML PLCT IV SCH ×2 (09:12→10:11)
--- NOTE | 2023-03-28 09:39 | Pharmacy Report ---
Pharmacy PN Follow-up Note - Date of Service March 28, 2023 - Subjective Patient is currently on day #5 of PPN - Objective Height & Weight (Last Documented) Height 5 ft 5 in Weight 82.4 kg Diet Order(s) 03/22/23 16:23 NPO Intake & Ouput (24hrs) 03/27/23 03/28/23 03/29/23 06:59 06:59 06:59 Intake Total 2706.435 / 2706.435 3183.745 / 3183.745 Output Total 2300 / 2300 5151 / 5151 550 / 550 Balance 406.435 / 406.435 -1967.255 / -1967.255 -550 / -550 Selected Laboratory Results 03/28/23 06:25 Sodium 137 Potassium 3.5 Chloride 100 Carbon Dioxide 29 Anion Gap 8 BUN 8 Creatinine 0.50 L Est GFR ( Amer) 109.0 Est GFR (Non-Af Amer) 94.0 BUN/Creatinine Ratio 16.0 Glucose 94 Calcium 8.7 Phosphorus 3.4 Magnesium 1.8 - Assessment & Plan Assessment: * Patient continues on PPN, today is day #5. Provider wanting minimal fluid with PPN as patient also getting IV antibiotics (~1300 ml/day). PPN currently providing ~1000 ml/day. Due to peripheral access/osmolarity, currently limited with PPN formulation and unable to achieve goal Kcals and adjust electrolytes in PPN. Discussed with provider and they are aware to replace electrolytes outside of PPN as needed and if wanting to achieve Kcal goal, patient will need central access. * Plan is for speech to see patient and provider hopeful that patient will be able to eat * K on lower end of goal range, IV kcl 10 meq x 2 bags ordered this AM * Cl trending down, CO2 trending upward - will increase Cl in PPN and minimize acetate Plan: * For Day #5 of PPN administration, the following will be ordered: * Macronutrients: * Amino Acids: 43 grams/day * Dextrose: 50 grams/day * Lipids: 50 grams/day * Micronutrients: * Sodium chloride: 90 mEq/day * Sodium acetate: 30 mEq/day * Potassium phosphate: 15 mMol/day * Multivitamins: 10 mL/day * Trace elements: 1 mL/day * Thiamine: 100 mg/day * Total volume of 1068 mL will be infused over 24 hours and will provide 840 kcal/day * Patient is on PPN which has a maximum mOsm/L of 900. Final osmolarity of current solution is 891.39 mOsm/L. * Labs will be ordered per PN protocol. * Pharmacy will follow and adjust PN orders on a daily basis. Thank you!
[2023-03-28] MEDS ORDERED: VANCOMYCIN LEVEL ONE (11:00)
--- NOTE | 2023-03-28 11:59 | Pharmacy Report ---
Pharmacy PK ABX Note - Date of Service March 28, 2023 - Assessment and Plan Assessment 03/28 * Random level today was 23 mcg/ml - drawn ~8 hours after last vancomycin dosing. Estimated AUC >600, therefore will scale back and decrease dosing to 1250 mg iv q 12 hrs 03/26 * Random level today of 19.1 mcg/mL associated with a therapeutic AUC. No change to vancomycin. Repeat level in ~3 days, or sooner if SCr / clinical status changes 03/24 * 03/21 CSF culture updated to coag neg staph. ID now recommending antibiotic change to doxycycline (possible tick bourne disease) + vancomycin + zosyn as patient has continued fever. Remdesivir discontinued. * Level today 12.2 mcg/mL suggests AUCss 459 mg/L.hr with 77% probability. Given continued fever will adjust dose to target AUCss 547 with 95% probability * 03/23 * Ms Palacios is a 77 year old F receiving vanco + ceftriaxone + ampicillin for possible meningitis per recommendations of ID human resources consultant * Pt was admitted on 03/11 for significant weakness, following an admission for COVID-19 (diagnosed 03/01/23). * Relevant micro: 03/21 CSF culture growing staph species, 03/21 CSF biofire negative, multiple serologies pending (Lyme, RPR, EBV, cryptococcus, Legionella, HIV) Plan Vancomycin * Maintenance dose: 1250 mg IV every 12 hours * Regimen is predicted to achieve target AUC/AIDA of 400-600 mg/L.hr Pharmacy will continue to follow and will adjust dose/frequency as necessary. Thank you. Pharmacy has transitioned to AUC monitoring for vancomycin. AUC/AIDA is the preferred PK/PD target and is associated with decreased risk of nephrotoxicity compared to traditional trough targets.
[2023-03-28] MEDS: CALCIUM 600MG + VIT D 400 IU TAB PO SCH (12:33)
[2023-03-28] MEDS: TOCOPHERYL, DL-ALPHA 400 UNITS 180 MG CAP PO SCH (12:34)
[2023-03-28 13:07] LABS: Ehrlichia chaff DNA Bld Negative (Negative)
[2023-03-28] MEDS ORDERED: CLINOLIPID 20% IV FAT EMULSION 250 ML IV SCH (16:00)
[2023-03-28] MEDS ORDERED: PERIPHERAL TPN IV SCH (16:00)
[2023-03-28] MEDS ORDERED: [UNRECOGNIZED DRUG - OTHER] IV SCH (16:00)
[2023-03-28] MEDS: VANCOMYCIN HCL 1,250 MG in SODIUM CHLORIDE 0.9% 250 ML IV SCH (16:56)
[2023-03-28] MEDS: STOP CLINOLIPID SCH (22:53)
[2023-03-28] MEDS: MONTELUKAST SODIUM 10 MG TABLET PO SCH (23:16)
[2023-03-29 02:23] LABS: CSF, LDH 12 U/L (<=25); Lyme DNA PCR CSF or Synovial Not Detected (Not Detected); Lyme DNA Source CSF
[2023-03-29] MEDS: PIPER/TAZO 4.5g in D5W MINI-B 100 ML IV SCH ×3 (06:05→22:19)
[2023-03-29] MEDS: VANCOMYCIN HCL 1,250 MG in SODIUM CHLORIDE 0.9% 250 ML IV SCH ×2 (06:06→16:22)
[2023-03-29 07:44] LABS: BUN Creatinine Ratio 17.6 (10-20); Calcium 8.8 mg/dl (8.6-10.3); Creatinine Clr Calc Pharmacy 99.9 ml/min; Est GFR (African American) 108.3 ml/min; Est GFR (Non-African American) 93.4 ml/min; Magnesium 1.7 mg/dl (1.7-2.4); Phosphorus 3.5 mg/dl (2.5-4.9); Potassium 3.6 mmol/L (3.5-5.1)
--- NOTE | 2023-03-29 08:00 | Hospitalist Progress Note ---
Date of Service March 29, 2023 Assessment & Plan (1) Weakness: Plan: 77 yo F with mild intermittent asthma, hypertension, irritable bowel syndrome, GERD, chronic interstitial cystitis without hematuria, generalized osteoarthritis, memory disturbance, factor V Leiden mutation, history of CVA, hyponatremia, history of DVT comes because of weakness. Patient was recently diagnosed COVID on March 01 and got admitted and was discharged on March 03. Patient states after going home she was fine for few days. Then she was feeling very weak and tired. Not able to ambulate much. Legs are sore. This reason she came back. Thinks she might have low-grade fever. A week ago she had some chest discomfort that got resolved. Generalized weakness likely secondary to COVID-19 virus infection COVID test has been positive on 03/01/2023 and again 03/11/2023 during this admission Initially, patient's generalized weakness was improving, was able to eat and walking around the her bed with physical therapy Neurology was consulted and felt no further w/u needed likely all in setting of illness and deconditioning Starting Tuesday, patient developed generalized weakness again On Tuesday, was showing profound generalized weakness, Signs of possible aspiration Neurologist re-consulted Recommend lumbar puncture and check CK level Status post lumbar puncture WBC, glucose, protein within normal limits Gram stain/ csf cultx: Coag negat. staph Positive fever starting on 03/21/23 -daptomycin plus Zosyn started Remdesivir also started given patient's increased CRP - will stop now (03/24, pt received 4 doses - this was discussed w/ ID) Chest x-ray: No pneumonia. Repeated CXR - some pulm vasc congestion, R basilar opacity Urine analysis: Negative, will repeated - negat. Blood cultures: Pending Fungal cultx : pending 03/22-03/23, patient more awake and alert but still having generalized weakness, fever 03/24 very drowsy, barely responsive, febrile 03/25 -03/27, Afebrile and clinically improved, awake,alert, following commands, but continues to be weak 03/28 Worked with speech therapist today. On my eval very tired and weak. 03/29 Worked with PT, able to sit at the edge of the bed for 10-15 min. On my eval very tired and weak. Neurology and infectious disease consulted Neurology (03/22) - Lethargy in a 77F with a PMH of recent COVID 19 infection, HTN, prior DVT and spinal stenosis. On exam she is lethargic and follows simple commands. There is no clear focality to her exam/position may be issue By report she has had similar (less severe) episodes in the past with immunizations. GBS is ruled out due to low proteins in the CSF, CSF is also negative for infections Stroke or cervical spinal pathology, another potential cause could be post-COVID 19 fatigue or an underlying muscle disorder. Plan -- MRI of the brain without contrast, MRI of the C-spine with contrast Myasthenia gravis antibodies - pending Brain MRI - 1. Mild age-related findings. 2. No acute infarct, bleed, or acute intracranial abnormality. Cervical spine MRI - 1. Moderate prevertebral edema, intramuscular edema in the posterior muscles, and interspinous ligamentous edema, nonspecific, may be inflammatory/infectious or posttraumatic.2. No epidural abscess or abnormal cord signal.3. Borderline central spinal stenosis C4-5, C5-6 and C6-7, degenerative. 03/23 -discussed over the phone with neurology results of MRIs, noted extensive inflammation, and considering high-dose steroid. This will need to be further discussed with ID. ID (03/22/23) - Neurology initially attributed her weakness to deconditioning. On follow up, they recommended an LP (03/20). Until the LP was completed, all cultures were negative. Chest imaging was also negative. The CSF is currently growing GPC. The patient is being treated with daptomycin and Zosyn. I cannot explain the patient's persistent symptoms. Until the organism in the CSF has been identified, I would use ELECTRICAL DESIGN ENGINEER-dosed ABX (vancomycin plus ceftriaxone/cefepime plus ampicillin). However, my suspicion for a true bacterial meningitis is low. If she had a typical organism (eg pneumococcus) I suspect that she would be much sicker. For completeness, I would order: CT A/P, HIV Ag/AB, CSF VDRL, syphilis screen, fungal BCX, Legionella uAG. The remainder of the AMS workup will be deferred to Neurology. CT abd/pelvis- 1. Subtle right perinephric edema is nonspecific, cannot rule ou t right pyelonephritis, correlate clinically and with labs. 2. Possible proctitis or stercoral colitis. 3. Possible mild gastroenteritis or ileus. 4. Bibasilar infiltrates and pleural effusion, greater on the right, are nonspecific, cannot rule out pneumonia. 5. Normal appendix. Blood work - ordered and pending 03/24 - discussed with ID, as patient still febrile last evening and results of CSF now showing coag negative staph, likely contaminant. Stopping ampicillin, remdesivir. Recommend to continue with Vanco Zosyn, and can consider doxycycline. Tickborne panel, UA repeat with straight cath, LDH and reticulocyte count. 03/25 - Pt is awake, alert , following commands. Afebrile today but febrile yesterday. Currently on vanco, zosyn, doxy. + LLQ abd. discomfort, + diarrhea. Will test for c. diff. 03/26 Afebrile. c. diff negative. no abd. pain. awake and alert. 03/29 Discussed with ID again. Plan to continue with vanco, zosyn, doxy for 2 weeks. Or at least until results of anaplasma, and babesia are back. (MRSA swab was positive, therefore cont. vanco. Pt seemed to initially improve on this combination of antibiotic.) Speech therapy evaluation: Recommend n.p.o. status given patient's generalized weakness - will re-test as she is awake and appears somewhat stronger Foundry Technician consulted for possible initiation of tube feeding via core safe/ PPN, started PPN - cont. for now COVID 19 virus infection Remains asymptomatic otherwise but very weak COVID precautions Does not require any more COVID precautions she is about 14 days out of initial COVID infection Remdesivir added in light of elevated CRP. Received 4 doses, discussed with ID remdesivir stopped on 03/24 Right upper ext edema US:IMPRESSION: No venous thrombus within the right upper extremity. History of asthma Continue home inhalers No acute symptoms Hypertension On amlodipine bp stable GERD Omeprazole History of hyponatremia On salt tablets - can't take Po consistently at this time on PPN cont. to monitor History of factor V Leiden deficiency History of DVT Seems current not on anticoagulation Needs follow-up Bowel regimen no BM for days daily miralax and Senna S BID ordered initially -> then pt was npo for several days had loose stool and abd. discomfort. c. diff negative. cont. to monitor stools DVT prophylaxis Lovenox Disposition Will need correction facility when medically stable for discharge Admission and Anticipated Discharge Date Admission Date: March 11, 2023 Subjective Follow-up for generalized weakness, etc. Seen laying in bed, in NAD. Yesterday worked with speech therapist and started on liquid diet. Afebrile. Denies cough, shortness of breath, chest pain She had some abdominal discomfort and diarrhea previously. C. difficile negative. denies any abd. discomfort now. She also worked with PT, was able to sit at the edge of the bed for about 10-15 min. Currently looks very tired. Pt's present at the bedside. Review of Systems Review of Systems: All systems reviewed & are unremarkable except as noted in Subjective Physical Exam Physical Exam: General- WD/WN elderly F + chronically ill appearing, very weak appearing however awake and in NAD Eyes- anicteric Neck- no JVD Lungs- clear breath sounds bilaterally, no rales/wheezes Heart- normal rate, regular rhythm; no murmurs Abdomen- normal bowel sounds, nondistended, soft, nontender Extremities- no pretibial edema, no calf tenderness Neuro- drowsy today but able to answer appropriately, following commands, generally weak but able to move extremities somewhat Skin- warm & dry, pale Results & Data Results & Data Vital Signs (Past 12 Hours) Vital Signs Temp Pulse Pulse Resp BP BP Pulse Ox 03/29/23 07:36 37.1 C 89 18 163/76 H 95 03/29/23 04:19 37.7 C H 95 H 20 168/85 H 95 03/28/23 23:59 37.1 C 88 20 177/75 H 92 03/28/23 21:57 86 03/28/23 20:24 37.5 C 82 20 172/24 H 97 O2 Del Method 03/29/23 07:36 Room Air 03/29/23 04:19 Room Air 03/28/23 23:59 Room Air 03/28/23 21:57 03/28/23 20:24 Room Air Laboratory Results 03/29/23 03/29/23 03/28/23 Range/Units 07:53 06:04 20:42 Sodium 132 L (136-145) mmol/L Potassium 3.6 (3.5-5.1) mmol/L Chloride 97 L (98-107) mmol/L Carbon Dioxide 26 (21-32) mmol/L Anion Gap 9 (3-11) BUN 9 (6-23) mg/dl Creatinine 0.51 L (0.6-1.2) mg/dl Est Cr Clr Drug Dosing 99.9 ml/min Est GFR ( Amer) 108.3 ml/min Est GFR (Non-Af Amer) 93.4 ml/min BUN/Creatinine Ratio 17.6 (10-20) Glucose 110 H (70-99(Fasting)) mg/dl POC Glucose 123 H 110 H (70-99) mg/dl Calcium 8.8 (8.6-10.3) mg/dl Phosphorus 3.5 (2.5-4.9) mg/dl Magnesium 1.7 (1.7-2.4) mg/dl Fld Lyme DNA (PCR) (Not Detected) CSF LDH (<=25) U/L CSF Lactate (10-22) mg/dL CSF VDRL Random Vancomycin (10-20) mcg/ml Lyme Specimen Source Lyme DNA Comment E.chaffeensis DNA (PCR) (Negative) 03/28/23 03/28/23 03/28/23 Range/Units 13:02 10:54 06:25 Sodium 137 (136-145) mmol/L Potassium 3.5 (3.5-5.1) mmol/L Chloride 100 (98-107) mmol/L Carbon Dioxide 29 (21-32) mmol/L Anion Gap 8 (3-11) BUN 8 (6-23) mg/dl Creatinine 0.50 L (0.6-1.2) mg/dl Est Cr Clr Drug Dosing 101.5 ml/min Est GFR ( Amer) 109.0 ml/min Est GFR (Non-Af Amer) 94.0 ml/min BUN/Creatinine Ratio 16.0 (10-20) Glucose 94 (70-99(Fasting)) mg/dl POC Glucose 92 (70-99) mg/dl Calcium 8.7 (8.6-10.3) mg/dl Phosphorus 3.4 (2.5-4.9) mg/dl Magnesium 1.8 (1.7-2.4) mg/dl Fld Lyme DNA (PCR) (Not Detected) CSF LDH (<=25) U/L CSF Lactate (10-22) mg/dL CSF VDRL Random Vancomycin 23.4 H (10-20) mcg/ml Lyme Specimen Source Lyme DNA Comment E.chaffeensis DNA (PCR) (Negative) 03/24/23 03/21/23 Range/Units 14:31 11:55 Sodium (136-145) mmol/L Potassium (3.5-5.1) mmol/L Chloride (98-107) mmol/L Carbon Dioxide (21-32) mmol/L Anion Gap (3-11) BUN (6-23) mg/dl Creatinine (0.6-1.2) mg/dl Est Cr Clr Drug Dosing ml/min Est GFR ( Amer) ml/min Est GFR (Non-Af Amer) ml/min BUN/Creatinine Ratio (10-20) Glucose (70-99(Fasting)) mg/dl POC Glucose (70-99) mg/dl Calcium (8.6-10.3) mg/dl Phosphorus (2.5-4.9) mg/dl Magnesium (1.7-2.4) mg/dl Fld Lyme DNA (PCR) Not Detected (Not Detected) CSF LDH 12 (<=25) U/L CSF Lactate 14.5 (10-22) mg/dL CSF VDRL TNP Random Vancomycin (10-20) mcg/ml Lyme Specimen Source CSF Lyme DNA Comment see note E.chaffeensis DNA (PCR) Negative (Negative) Medications Administered Current Inpatient Medications Acetaminophen (Acetaminophen 325 Mg Tab) 650 mg PO Q4H PRN PRN Reason: FEVER OR PAIN Stop: 04/17/23 09:41 Last Admin: 03/22/23 05:38 Dose: 650 mg Albuterol (Albuterol Hfa 8 Gm Inhaler) 2 puffs INH QID PRN PRN Reason: Shortness Of Breath Or Wheezin Stop: 04/11/23 00:14 Amlodipine Besylate (Amlodipine Besylate 5 Mg Tab) 2.5 mg PO QAM [facility] Stop: 04/23/23 08:59 Last Admin: 03/28/23 09:03 Dose: Not Given Aspirin (Aspirin 325 Mg Ectab) 325 mg PO QAM [facility] Stop: 04/11/23 08:59 Last Admin: 03/23/23 10:10 Dose: Not Given Aspirin (Aspirin 300 Mg Supp) 300 mg [place] DAILY [facility] Stop: 04/23/23 08:59 Last Admin: 03/28/23 08:48 Dose: 300 mg Calcium/Vitamin D (Calcium 600mg + Vit D 400 Iu Tab) 1 tab PO QDL [facility] Stop: 04/11/23 11:29 Last Admin: 03/28/23 12:33 Dose: Not Given Diclofenac Sodium (Diclofenac Sod 1% Gel 100 Gm Tube) 2 gm EXT BID [facility]; Protocol Stop: 04/25/23 20:59 Last Admin: 03/28/23 23:16 Dose: 2 gm Enoxaparin Sodium (Enoxaparin Inj 40 Mg/0.4 Ml Syr) 40 mg SQ QAM [facility] Stop: 04/11/23 08:59 Last Admin: 03/28/23 09:10 Dose: 40 mg Famotidine (Famotidine 20 Mg Tab) 20 mg PO BID [facility] Stop: 04/11/23 08:59 Last Admin: 03/23/23 10:11 Dose: Not Given Fluticasone Propionate (Fluticasone Propionate Na Spr 16 Gm Btl) 2 sprays NA QAM [facility] Stop: 04/11/23 08:59 Last Admin: 03/28/23 09:11 Dose: 2 sprays Hydralazine HCl (Hydralazine Hcl 20 Mg/Ml Vial) 5 mg IV Q6H PRN PRN Reason: Hypertension Stop: 04/22/23 20:21 Pantoprazole Sodium 40 mg/ (Syringe) 10 mls @ 5 mls/min IV DAILY [facility] Stop: 04/20/23 08:59 Last Admin: 03/28/23 09:04 Dose: 5 mls/min Famotidine 20 mg/ Syringe 5 mls @ 2.5 mls/min IV BID [facility] Stop: 04/22/23 20:59 Last Admin: 03/28/23 22:53 Dose: 2.5 mls/min Dextrose (D10w) 1,000 mls @ 0 mls/hr IV .Q0M PRN PRN Reason: protocol (see label comments) Stop: 04/23/23 13:17 Piperacillin Sod/Tazobactam (Sod 4.5 gm/ Dextrose) 100 mls @ 25 mls/hr IV Q8H [facility]; Protocol Stop: 04/03/23 19:59 Last Admin: 03/29/23 06:05 Dose: 25 mls/hr Amino Acids 1,068 ml/ (Nutrition (Parenteral)) 1,068 mls @ 44.5 mls/hr IV .Q24H [facility]; Protocol Stop: 03/29/23 15:59 Last Admin: 03/28/23 17:32 Dose: 44.5 mls/hr Vancomycin HCl 1,250 mg/ (Sodium Chloride) 275 mls @ 200 mls/hr IV Q12H [facility] Stop: 04/02/23 16:59 Last Admin: 03/29/23 06:06 Dose: 200 mls/hr Ipratropium [place] (Ipratropium [place] Nasal [place] 0.06% 15ml) 1 sprays MARINO BID [facility] Stop: 04/11/23 08:59 Last Admin: 03/28/23 23:16 Dose: 1 sprays Meclizine HCl (Meclizine Hcl 25 Mg Tab) 25 mg PO HS PRN PRN Reason: dizzyiness Stop: 04/11/23 00:14 Miscellaneous (Stop Clinolipid) 1 each N/A TODAY@22 [facility] Stop: 04/24/23 21:59 Last Admin: 03/28/23 22:53 Dose: 1 each Miscellaneous Information (Vancomycin Consult Active) 1 each N/A UD PRN PRN Reason: Consult Stop: 04/22/23 00:02 Miscellaneous Information (Tpn/Ppn Consult Pharmacy) 1 each N/A UD PRN PRN Reason: Consult Stop: 04/22/23 11:05 Montelukast Sodium (Montelukast Sodium 10 Mg Tablet) 10 mg PO HS [facility] Stop: 04/11/23 20:59 Last Admin: 03/28/23 23:16 Dose: Not Given Multivitamins (Multivitamin Tab) 1 tab PO QDL [facility] Stop: 04/11/23 11:29 Last Admin: 03/25/23 11:30 Dose: Not Given Polyethylene Glycol (Polyethylene (Miralax) 17 Gm Pack) 17 gm PO DAILY PRN PRN Reason: Constipation Stop: 04/11/23 00:14 Polyethylene Glycol (Polyethylene (Miralax) 17 Gm Pack) 17 gm PO DAILY [facility] Stop: 04/15/23 13:44 Last Admin: 03/28/23 09:04 Dose: Not Given Senna/Docusate Sodium (Docusate Sodium/Senna 50/8.6mg Tab) 1 tab PO BID [facility] Stop: 04/15/23 20:59 Last Admin: 03/28/23 23:16 Dose: Not Given Sodium Chloride (Sodium Chloride 1 Gm Tablet) 1 gm PO BID [facility] Stop: 04/11/23 08:59 Last Admin: 03/28/23 23:16 Dose: Not Given Trolamine Salicylate (Trolamine Salicylate 10% Crm 255 Appln/85 Gm Tube) 1 appln EXT BID PRN PRN Reason: Pain Stop: 04/11/23 00:14 Last Admin: 03/28/23 09:06 Dose: 1 appln Vitamin E (Tocopheryl, Dl-Alpha 400 Units 180 Mg Cap) 400 units PO QDL [facility] Stop: 04/11/23 11:29 Last Admin: 03/28/23 12:34 Dose: Not Given
[2023-03-29] MEDS: FAMOTIDINE 20 MG in SYRINGE 3 ML IV SCH ×2 (09:01→20:52)
[2023-03-29] MEDS: PANTOprazole 40 MG in SYRINGE 0 ML IV SCH (09:01)
[2023-03-29] MEDS: FLUTICASONE PROPIONATE NA SPR 16 GM BTL SCH (09:02)
[2023-03-29] MEDS: DICLOFENAC SOD 1% GEL 100 GM TUBE EXT SCH ×2 (09:02→20:51)
[2023-03-29] MEDS: IPRATROPIUM BROMIDE NASAL SPRAY 0.06% 15ML NAE SCH ×2 (09:02→20:53)
[2023-03-29] MEDS: ENOXAPARIN INJ 40 MG/0.4 ML SYR SQ SCH (09:02)
[2023-03-29] MEDS: ASPIRIN 300 MG SUPP PR SCH (09:03)
[2023-03-29] MEDS: POLYETHYLENE (MIRALAX) 17 GM PACK PO SCH (09:04)
[2023-03-29] MEDS: DOCUSATE SODIUM/SENNA 50/8.6MG TAB PO SCH ×2 (09:04→20:52)
[2023-03-29] MEDS: amLODIPine BESYLATE 5 MG TAB PO SCH (09:05)
[2023-03-29] MEDS: SODIUM CHLORIDE 1 GM TABLET PO SCH ×2 (09:11→20:53)
[2023-03-29] MEDS: DOXYCYCLINE HYCLATE 100 MG in DEXTROSE 5% MINI-B 100 ML IV SCH ×2 (10:07→20:52)
[2023-03-29] MEDS: CALCIUM 600MG + VIT D 400 IU TAB PO SCH (12:32)
[2023-03-29] MEDS: TOCOPHERYL, DL-ALPHA 400 UNITS 180 MG CAP PO SCH (12:32)
[2023-03-29] MEDS: TROLAMINE SALICYLATE 10% CRM 255 APPLN/85 GM TUBE EXT PRN (12:37)
[2023-03-29] MEDS ORDERED: CLINOLIPID 20% IV FAT EMULSION 250 ML IV SCH (16:00)
[2023-03-29] MEDS ORDERED: [UNRECOGNIZED DRUG - OTHER] IV SCH (16:00)
[2023-03-29] MEDS ORDERED: PERIPHERAL TPN IV SCH (16:00)
[2023-03-29] MEDS ORDERED: ACETAMINOPHEN 1,000 MG/100 ML VIAL IV PRN (17:23)
[2023-03-29] MEDS: MONTELUKAST SODIUM 10 MG TABLET PO SCH (20:53)
[2023-03-29 21:57] LABS: Babesia microti DNA Not Detected (Not Detected); Q Fever IgG, Phase I NEGATIVE; Q Fever Phase I IgM Antibody NEGATIVE; Q Fever Phase II IgG Antibody NEGATIVE; Q Fever Phase II IgM Antibody NEGATIVE; R. typhi IgG Ab NOT DETECTED; R. typhi IgM Ab NOT DETECTED; RMSF IgG Ab NOT DETECTED; RMSF IgM Ab NOT DETECTED
[2023-03-29] MEDS: STOP CLINOLIPID SCH (22:18)
[2023-03-30] MEDS: VANCOMYCIN HCL 1,250 MG in SODIUM CHLORIDE 0.9% 250 ML IV SCH ×2 (06:00→16:17)
[2023-03-30] MEDS: PIPER/TAZO 4.5g in D5W MINI-B 100 ML IV SCH ×2 (06:00→17:51)
[2023-03-30 06:57] LABS: Basophils # (auto) 0.07 K/uL (0.00-0.20); Basophils % (auto) 0.6 %; Eosinophils # (auto) 0.38 K/uL (0.00-0.50); Eosinophils % (auto) 3.2 %; Hematocrit (blood only) 29.4 % (37.0-47.0); Hemoglobin 9.9 g/dl (12.0-16.0); Immature Granulocytes # (auto) 0.15 K/uL (0.01-0.20); Immature Granulocytes % (auto) 1.3 %; Lymphocytes # (auto) 1.78 K/uL (1.20-3.40); Lymphocytes % (auto) 14.9 %; Mean Corpuscular Hemoglobin 27.5 pg (25.0-34.0); Mean Corpuscular Hgb Conc 33.7 g/dL (32.0-36.0); Mean Corpuscular Volume 81.7 fL (80.0-100.0); Mean Platelet Volume 10.1 fL (9.4-12.4); Monocytes # (auto) 1.59 K/uL (0.11-0.59); Monocytes % (auto) 13.3 %; Neutrophils # (auto) 7.99 K/uL (1.40-6.50); Neutrophils % (auto) 66.7 %; Platelet Count 429 K/uL (130-400); RDW Coefficient of Variation 13.8 % (11.5-14.5); RDW Standard Deviation 40.6 fL (36.4-46.3); White Blood Count 11.96 K/ul (4.8-10.8)
[2023-03-30 07:57] LABS: Calcium 8.5 mg/dl (8.6-10.3); Magnesium 1.7 mg/dl (1.7-2.4); Potassium 3.3 mmol/L (3.5-5.1)
[2023-03-30 08:03] LABS: Creatinine Clr Calc Pharmacy 102.8 ml/min
[2023-03-30] MEDS: DOCUSATE SODIUM/SENNA 50/8.6MG TAB PO SCH ×2 (09:15→20:46)
[2023-03-30] MEDS: amLODIPine BESYLATE 5 MG TAB PO SCH (09:15)
[2023-03-30] MEDS: SODIUM CHLORIDE 1 GM TABLET PO SCH ×2 (09:16→20:47)
[2023-03-30] MEDS: POLYETHYLENE (MIRALAX) 17 GM PACK PO SCH (09:16)
[2023-03-30] MEDS: ASPIRIN 300 MG SUPP PR SCH (10:24)
[2023-03-30] MEDS: DICLOFENAC SOD 1% GEL 100 GM TUBE EXT SCH ×2 (10:35→20:46)
[2023-03-30] MEDS: TROLAMINE SALICYLATE 10% CRM 255 APPLN/85 GM TUBE EXT PRN (10:35)
[2023-03-30] MEDS: ENOXAPARIN INJ 40 MG/0.4 ML SYR SQ SCH (10:35)
[2023-03-30] MEDS: IPRATROPIUM BROMIDE NASAL SPRAY 0.06% 15ML NAE SCH ×2 (10:36→20:47)
[2023-03-30] MEDS: FLUTICASONE PROPIONATE NA SPR 16 GM BTL SCH (10:36)
[2023-03-30] MEDS: CALCIUM 600MG + VIT D 400 IU TAB PO SCH (10:37)
[2023-03-30] MEDS: TOCOPHERYL, DL-ALPHA 400 UNITS 180 MG CAP PO SCH (10:37)
[2023-03-30] MEDS: DOXYCYCLINE HYCLATE 100 MG in DEXTROSE 5% MINI-B 100 ML IV SCH ×2 (10:46→20:45)
[2023-03-30] MEDS: FAMOTIDINE 20 MG in SYRINGE 3 ML IV SCH ×2 (10:46→20:46)
[2023-03-30] MEDS: PANTOprazole 40 MG in SYRINGE 0 ML IV SCH (10:46)
--- NOTE | 2023-03-30 12:08 | XRay Report ---
XR chest 1V portable HISTORY: 77 years-old Female fever, r/o pneumonia acute fever COMPARISON: 03/24/2023 TECHNIQUE: AP view of the chest FINDINGS: Cardiomediastinal and hilar silhouettes are within normal limits. There is no pneumothorax, pleural e ffusion or lobar airspace consolidation. Subtle ill-defined lateral left lung base opacities. The bon es appear grossly intact. IMPRESSION: Subtle ill-defined left lateral lung base opacities may be artifactual or atelectatic. A mild pneumonia considered less likely. ACT 112: Negative or not required by law. The above report was generated using voice recognition software. It may contain grammatical, syntax o r spelling errors. Electronically signed by: Herbie Benitez M.D. 03/30/2023 12:07 PM
--- NOTE | 2023-03-30 13:17 | Hospitalist Progress Note ---
Date of Service March 30, 2023 Assessment & Plan (1) Weakness: Plan: per previous hospitalist notes with addendum: 77 yo F with mild intermittent asthma, hypertension, irritable bowel syndrome, GERD, chronic interstitial cystitis without hematuria, generalized osteoarthritis, memory disturbance, factor V Leiden mutation, history of CVA, hyponatremia, history of DVT comes because of weakness. Patient was recently diagnosed COVID on March 01 and got admitted and was discharged on March 03. Patient states after going home she was fine for few days. Then she was feeling very weak and tired. Not able to ambulate much. Legs are sore. This reason she came back. Thinks she might have low-grade fever. A week ago she had some chest discomfort that got resolved. Generalized weakness likely secondary to COVID-19 virus infection COVID test has been positive on 03/01/2023 and again 03/11/2023 during this admission Initially, patient's generalized weakness was improving, was able to eat and walking around the her bed with physical therapy Neurology was consulted and felt no further w/u needed likely all in setting of illness and deconditioning Starting Tuesday, patient developed generalized weakness again On Tuesday, was showing profound generalized weakness, Signs of possible aspiration Neurologist re-consulted Recommend lumbar puncture and check CK level Status post lumbar puncture WBC, glucose, protein within normal limits Gram stain/ csf cultx: Coag negat. staph Positive fever starting on 03/21/23 -daptomycin plus Zosyn started Remdesivir also started given patient's increased CRP - will stop now (03/24, pt received 4 doses - this was discussed w/ ID) Chest x-ray: No pneumonia. Repeated CXR - some pulm vasc congestion, R basilar opacity Urine analysis: Negative, will repeated - negat. Blood cultures: Pending Fungal cultx : pending 03/22-03/23, patient more awake and alert but still having generalized weakness, fever 03/24 very drowsy, barely responsive, febrile 03/25 -03/27, Afebrile and clinically improved, awake,alert, following commands, but continues to be weak 03/28 Worked with speech therapist today. On my eval very tired and weak. 03/29 Worked with PT, able to sit at the edge of the bed for 10-15 min. On my eval very tired and weak. 03/30 (+) fever 38.2 Still very weak Repeat blood cultures, chest x-ray, urinalysis Repeat respiratory panel Continue vancomycin, Zosyn, doxycycline Continue PPN Neurology and infectious disease consulted Neurology (03/22) - Lethargy in a 77F with a PMH of recent COVID 19 infection, HTN, prior DVT and spinal stenosis. On exam she is lethargic and follows simple commands. There is no clear focality to her exam/position may be issue By report she has had similar (less severe) episodes in the past with immunizations. GBS is ruled out due to low proteins in the CSF, CSF is also negative for infections Stroke or cervical spinal pathology, another potential cause could be post-COVID 19 fatigue or an underlying muscle disorder. Plan -- MRI of the brain without contrast, MRI of the C-spine with contrast Myasthenia gravis antibodies - pending Brain MRI - 1. Mild age-related findings. 2. No acute infarct, bleed, or acute intracranial abnormality. Cervical spine MRI - 1. Moderate prevertebral edema, intramuscular edema in the posterior muscles, and interspinous ligamentous edema, nonspecific, may be inflammatory/infectious or posttraumatic.2. No epidural abscess or abnormal cord signal.3. Borderline central spinal stenosis C4-5, C5-6 and C6-7, degenerative. 03/23 -discussed over the phone with neurology results of MRIs, noted extensive inflammation, and considering high-dose steroid. This will need to be further discussed with ID. ID (03/22/23) - Neurology initially attributed her weakness to deconditioning. On follow up, they recommended an LP (03/20). Until the LP was completed, all cultures were negative. Chest imaging was also negative. The CSF is currently growing GPC. The patient is being treated with daptomycin and Zosyn. I cannot explain the patient's persistent symptoms. Until the organism in the CSF has been identified, I would use DEVELOPMENT LEAD-dosed ABX (vancomycin plus ceftriaxone/cefepime plus ampicillin). However, my suspicion for a true bacterial meningitis is low. If she had a typical organism (eg pneumococcus) I suspect that she would be much sicker. For completeness, I would order: CT A/P, HIV Ag/AB, CSF VDRL, syphilis screen, fungal BCX, Legionella uAG. The remainder of the AMS workup will be deferred to Neurology. CT abd/pelvis- 1. Subtle right perinephric edema is nonspecific, cannot rule out right pyelonephritis, correlate clinically and with labs. 2. Possible proctitis or stercoral colitis. 3. Possible mild gastroenteritis or ileus. 4. Bibasilar infiltrates and pleural effusion, greater on the right, are nonspecific, cannot rule out pneumonia. 5. Normal appendix. Blood work - ordered and pending 03/24 - discussed with ID, as patient still febrile last evening and results of CSF now showing coag negative staph, likely contaminant. Stopping ampicillin, remdesivir. Recommend to continue with Vanco Zosyn, and can consider doxycycline. Tickborne panel, UA repeat with straight cath, LDH and reticulocyte count. 03/25 - Pt is awake, alert , following commands. Afebrile today but febrile yesterday. Currently on vanco, zosyn, doxy. + LLQ abd. discomfort, + diarrhea. Will test for c. diff. 03/26 Afebrile. c. diff negative. no abd. pain. awake and alert. 03/29 Discussed with ID again. Plan to continue with vanco, zosyn, doxy for 2 weeks. Or at least until results of anaplasma, and babesia are back. (MRSA swab was positive, therefore cont. vanco. Pt seemed to initially improve on this combination of antibiotic.) Speech therapy evaluation: Recommend n.p.o. status given patient's generalized weakness - will re-test as she is awake and appears somewhat stronger [employer] Probation [employer] consulted for possible initiation of tube feeding via core safe/ PPN, started PPN - cont. for now COVID 19 virus infection Remains asymptomatic otherwise but very weak COVID precautions Does not require any more COVID precautions she is about 14 days out of initial COVID infection Remdesivir added in light of elevated CRP. Received 4 doses, discussed with ID remdesivir stopped on 03/24 Right upper ext edema US:IMPRESSION: No venous thrombus within the right upper extremity. History of asthma Continue home inhalers No acute symptoms Hypertension On amlodipine BP elevated As needed hydralazine for now GERD Omeprazole History of hyponatremia On salt tablets - can't take Po consistently at this time on PPN cont. to monitor History of factor V Leiden deficiency History of DVT Seems current not on anticoagulation Needs follow-up Bowel regimen no BM for days daily miralax and Senna S BID ordered initially -> then pt was npo for several days had loose stool and abd. discomfort. c. diff negative. cont. to monitor stools DVT prophylaxis Lovenox Disposition Will need half-way facility when medically stable for discharge Admission and Anticipated Discharge Date Admission Date: March 11, 2023 Subjective Follow-up for weakness, etc. Seen resting in bed, drowsy but easily awakened Answers most questions appropriately with short answers States he feels tired Was more awake with the RN earlier Denies pain No abdominal pain, nausea or vomiting no fevers or chills No diarrhea No headache, dizziness no other symptoms Review of Systems Review of Systems: all noted and negative except for above Physical Exam Physical Exam: General- oriented x 2, not in distress, speaks in sentences with no effort or accessory muscle use weak Eyes- anicteric Neck- no JVD Lungs- clear breath sounds bilaterally, no crackles/wheezing Heart- normal rate, regular rhythm; no murmurs Abdomen- normal bowel sounds, nondistended, soft, no tenderness Extremities- no pretibial edema, no calf tenderness Neuro- alert, oriented x 2; no gross focal neurologic deficits Skin- warm & dry Results & Data Results & Data Vital Signs (Past 12 Hours) Vital Signs Temp Pulse Pulse Resp BP BP Pulse Ox 03/30/23 11:44 37.0 C 94 H 24 165/90 H 94 03/30/23 11:33 03/30/23 08:07 38.3 C H 87 24 153/72 H 94 03/30/23 07:46 97 H 03/30/23 04:49 99 H 03/30/23 04:25 37.7 C H 100 H 20 155/79 H 92 O2 Del Method 03/30/23 11:44 Room Air 03/30/23 11:33 Room Air 03/30/23 08:07 Room Air 03/30/23 07:46 03/30/23 04:49 03/30/23 04:25 Room Air all noted and reviewed including below
[2023-03-30 14:11] LABS: Appearance Urine Clear (Clear); Bilirubin Urine Negative (Negative); Blood Urine Trace (Negative); Color Urine Yellow; Glucose Urine UA Negative (Negative); Ketones Urine Negative (Negative); Leukocyte Esterase Urine Negative (Negative); Nitrite Urine Negative (Negative); Protein Urine 1+ (Negative); Urobilinogen Urine Negative (Negative); pH Urine 5.5 (4.5-7.5)
[2023-03-30 14:22] LABS: Bacteria Urine Automated 1+ (Negative); RBC Urine Automated 0-4 /hpf (0-4)
[2023-03-30] MEDS: PERIPHERAL TPN IV SCH (15:02)
[2023-03-30] MEDS: [UNRECOGNIZED DRUG - OTHER] IV SCH (15:02)
[2023-03-30 15:09] LABS: Adenovirus PCR Not Detected (NotDetected); Bordetella parapertussis PCR Not Detected (NotDetected); Bordetella pertussis PCR Not Detected (NotDetected); Chlamydia pneumoniae PCR Not Detected (NotDetected); Coronavirus 229E PCR Not Detected (NotDetected); Coronavirus CoV-2 (COVID19)PCR Not Detected (NotDetected); Coronavirus HKU1 PCR Not Detected (NotDetected); Coronavirus NL63 PCR Not Detected (NotDetected); Coronavirus OC43PCR Not Detected (NotDetected); Human Metapneumovirus PCR Not Detected (NotDetected); Influenza A PCR Not Detected (NotDetected); Influenza B PCR Not Detected (NotDetected); Mycoplasma pneumoniae PCR Not Detected (NotDetected); Parainfluenza Virus 1 PCR Not Detected (NotDetected); Parainfluenza Virus 2 PCR Not Detected (NotDetected); Parainfluenza Virus 3 PCR Not Detected (NotDetected); Parainfluenza Virus 4 PCR Not Detected (NotDetected); Respiratory Syncytial VirusPCR Not Detected (NotDetected); Rhinovirus/Enterovirus PCR Not Detected (NotDetected)
[2023-03-30] MEDS ORDERED: CLINOLIPID 20% IV FAT EMULSION 250 ML IV SCH (16:00)
[2023-03-30 18:02] LABS: Albumin 1.9 g/dL (3.6-5.1); Albumin, CSF 15.5 mg/dL (8.0-42.0); EBV DNA Quant PCR Not Detected copies/mL; EBV DNA Quant Source Whole Blood; IgG CSF 1.8 mg/dL (0.8-7.7); IgG Index, CSF 0.49 (<0.70); IgG Serum 452 mg/dL (600-1540); Lyme IgG Band Pattern CSF DNR; Lyme IgG CSF NO BANDS DETECTED; Lyme IgM Band Pattern CSF DNR; Lyme IgM CSF NO BANDS DETECTED; Myelin Basic Protein <2.0 mcg/L (<=4.0); Oligoclonal Bands IgG, CSF Absent (Absent); Source CEREBROSPINAL FLUID; Synthesis Rate, IgG CSF -0.8 mg/24 h (-9.9-3.3)
[2023-03-30] MEDS: MONTELUKAST SODIUM 10 MG TABLET PO SCH (20:47)
[2023-03-30] MEDS: STOP CLINOLIPID SCH (21:25)
[2023-03-31] MEDS: PIPER/TAZO 4.5g in D5W MINI-B 100 ML IV SCH ×3 (01:15→21:41)
[2023-03-31] MEDS ORDERED: VANCOMYCIN LEVEL ONE (04:30)
[2023-03-31 08:19] LABS: BUN Creatinine Ratio 28.8 (10-20); Calcium 8.4 mg/dl (8.6-10.3); Creatinine Clr Calc Pharmacy 86.6 ml/min; Est GFR (African American) 103.2 ml/min; Potassium 3.7 mmol/L (3.5-5.1)
[2023-03-31 08:28] LABS: Basophils # (auto) 0.07 K/uL (0.00-0.20); Basophils % (auto) 0.6 %; Eosinophils # (auto) 0.68 K/uL (0.00-0.50); Eosinophils % (auto) 6.1 %; Hematocrit (blood only) 28.1 % (37.0-47.0); Hemoglobin 9.3 g/dl (12.0-16.0); Immature Granulocytes # (auto) 0.12 K/uL (0.01-0.20); Immature Granulocytes % (auto) 1.1 %; Lymphocytes # (auto) 1.58 K/uL (1.20-3.40); Lymphocytes % (auto) 14.3 %; Mean Corpuscular Hemoglobin 27.5 pg (25.0-34.0); Mean Corpuscular Hgb Conc 33.1 g/dL (32.0-36.0); Mean Corpuscular Volume 83.1 fL (80.0-100.0); Mean Platelet Volume 10.1 fL (9.4-12.4); Monocytes # (auto) 1.44 K/uL (0.11-0.59); Neutrophils # (auto) 7.17 K/uL (1.40-6.50); Neutrophils % (auto) 64.9 %; Platelet Count 397 K/uL (130-400); RDW Standard Deviation 41.9 fL (36.4-46.3); Red Blood Count 3.38 M/uL (4.20-5.40); White Blood Count 11.06 K/ul (4.8-10.8)
[2023-03-31] MEDS: PANTOprazole 40 MG in SYRINGE 0 ML IV SCH (09:23)
[2023-03-31] MEDS: FAMOTIDINE 20 MG in SYRINGE 3 ML IV SCH ×2 (09:23→21:44)
[2023-03-31] MEDS: ENOXAPARIN INJ 40 MG/0.4 ML SYR SQ SCH (09:24)
[2023-03-31] MEDS: DOXYCYCLINE HYCLATE 100 MG in DEXTROSE 5% MINI-B 100 ML IV SCH ×2 (09:25→21:43)
[2023-03-31] MEDS: DICLOFENAC SOD 1% GEL 100 GM TUBE EXT SCH ×2 (09:26→21:42)
[2023-03-31] MEDS: ASPIRIN 300 MG SUPP PR SCH (09:31)
[2023-03-31] MEDS: VANCOMYCIN HCL 1,250 MG in SODIUM CHLORIDE 0.9% 250 ML IV SCH ×2 (09:45→21:46)
[2023-03-31] MEDS: DOCUSATE SODIUM/SENNA 50/8.6MG TAB PO SCH ×2 (10:44→19:46)
[2023-03-31] MEDS: amLODIPine BESYLATE 5 MG TAB PO SCH (10:44)
[2023-03-31] MEDS: FLUTICASONE PROPIONATE NA SPR 16 GM BTL SCH (10:44)
[2023-03-31] MEDS: IPRATROPIUM BROMIDE NASAL SPRAY 0.06% 15ML NAE SCH ×2 (10:45→19:47)
[2023-03-31] MEDS: POLYETHYLENE (MIRALAX) 17 GM PACK PO SCH (10:45)
[2023-03-31] MEDS: SODIUM CHLORIDE 1 GM TABLET PO SCH ×2 (10:45→19:47)
--- NOTE | 2023-03-31 11:10 | CT Scan Report ---
CT OF THE ABDOMEN AND PELVIS WITHOUT CONTRAST CLINICAL HISTORY: fever, r/o intraabdominal infection COMPARISON STUDY: CT of the abdomen and pelvis March 22, 2023. TECHNIQUE: Axial images of the abdomen and pelvis were obtained without IV contrast. Images were revi ewed in the axial, sagittal, and coronal planes. Automated exposure control was utilized for the smith dy. A dose lowering technique was utilized adhering to the principles of ALARA. FINDINGS: Incidental note is made of nonspecific left upper arm fluid and stranding, partially imaged on this exam. There is a trace left pleural effusion. No pneumatosis, free air or portal venous gas is present. There are no renal, ureteral or bladder calculi. There is no hydronephrosis. A [place]ada ball oon and gas within the bladder present. There is mild symmetric bilateral perinephric stranding. This is unchanged. Unenhanced images of the liver, spleen, adrenal glands and pancreas are unremarkable. Gallbladder slightly distended. This is unchanged. There is no evidence for a bowel obstruction. The appendix is normal. No bowel wall thickening is identified on unenhanced exam. There is no lymphadeno johnny. No fluid collections are present. The amount of stool within the rectum has decreased since pr ior CT. No acute fractures or suspicious lesions within the visualized skeletal structures are presen t. IMPRESSION: 1. No acute process within the abdomen or pelvis on unenhanced exam. 2. Nonspecific mild bilateral perinephric infiltration, unchanged since prior CT. 3. Asymmetric left upper extremity edema/fluid, a nonspecific finding, partially imaged on this exam. ACT 112: Negative or not required by law. Electronically signed by: Dewayne Cuba M.D. 03/31/2023 11:09 AM
[2023-03-31] MEDS: CALCIUM 600MG + VIT D 400 IU TAB PO SCH (12:17)
[2023-03-31] MEDS: TOCOPHERYL, DL-ALPHA 400 UNITS 180 MG CAP PO SCH (12:18)
--- NOTE | 2023-03-31 13:16 | Hospitalist Progress Note ---
Date of Service March 31, 2023 Assessment & Plan (1) Weakness: Plan: per previous hospitalist notes with addendum: 77 yo F with mild intermittent asthma, hypertension, irritable bowel syndrome, GERD, chronic interstitial cystitis without hematuria, generalized osteoarthritis, memory disturbance, factor V Leiden mutation, history of CVA, hyponatremia, history of DVT comes because of weakness. Patient was recently diagnosed COVID on March 01 and got admitted and was discharged on March 03. Patient states after going home she was fine for few days. Then she was feeling very weak and tired. Not able to ambulate much. Legs are sore. This reason she came back. Thinks she might have low-grade fever. A week ago she had some chest discomfort that got resolved. FEVER OF UNKNOWN ORIGIN, PROFOUND GENERALIZED WEAKNESS, IN THE SETTING OF RECENT COVID-19 VIRUS INFECTION COVID test has been positive on 03/01/2023 and again 03/11/2023 during this admission Initially, patient's generalized weakness was improving, was able to eat and walking around the her bed with physical therapy Neurology was consulted and felt no further w/u needed likely all in setting of illness and deconditioning Starting Tuesday, patient developed generalized weakness again On Tuesday, was showing profound generalized weakness, Signs of possible aspiration Neurologist re-consulted Recommend lumbar puncture and check CK level Status post lumbar puncture WBC, glucose, protein within normal limits Gram stain/ csf cultx: Coag negat. staph Positive fever starting on 03/21/23 -daptomycin plus Zosyn started Remdesivir also started given patient's increased CRP - will stop now (03/24, pt received 4 doses - this was discussed w/ ID) Chest x-ray: No pneumonia. Repeated CXR - some pulm vasc congestion, R basilar opacity Urine analysis: Negative, will repeated - negat. Blood cultures: Pending Fungal cultx : pending 03/22-03/23, patient more awake and alert but still having generalized weakness, fever 03/24 very drowsy, barely responsive, febrile 03/25 -03/27, Afebrile and clinically improved, awake,alert, following commands, but continues to be weak 03/28 Worked with speech therapist today. On my eval very tired and weak. 03/29 Worked with PT, able to sit at the edge of the bed for 10-15 min. On my eval very tired and weak. Neurology and infectious disease consulted Neurology (03/22) - Lethargy in a 77F with a PMH of recent COVID 19 infection, HTN, prior DVT and spinal stenosis. On exam she is lethargic and follows simple commands. There is no clear focality to her exam/position may be issue By report she has had similar (less severe) episodes in the past with immunizations. GBS is ruled out due to low proteins in the CSF, CSF is also negative for infections Stroke or cervical spinal pathology, another potential cause could be post-COVID 19 fatigue or an underlying muscle disorder. Plan -- MRI of the brain without contrast, MRI of the C-spine with contrast Myasthenia gravis antibodies - pending Brain MRI - 1. Mild age-related findings. 2. No acute infarct, bleed, or acute intracranial abnormality. Cervical spine MRI - 1. Moderate prevertebral edema, intramuscular edema in the posterior muscles, and interspinous ligamentous edema, nonspecific, may be inflammatory/infectious or posttraumatic.2. No epidural abscess or abnormal cord signal.3. Borderline central spinal stenosis C4-5, C5-6 and C6-7, degenerative. 03/23 -discussed over the phone with neurology results of MRIs, noted extensive inflammation, and considering high-dose steroid. This will need to be further discussed with ID. ID (03/22/23) - Neurology initially attributed her weakness to deconditioning. On follow up, they recommended an LP (03/20). Until the LP was completed, all cultures were negative. Chest imaging was also negative. The CSF is currently growing GPC. The patient is being treated with daptomycin and Zosyn. I cannot explain the patient's persistent symptoms. Until the organism in the CSF has been identified, I would use RAILROAD BAGGAGE PORTER-dosed ABX (vancomycin plus ceftriaxone/cefepime plus ampicillin). However, my suspicion for a true bacterial meningitis is low. If she had a typical organism (eg pneumococcus) I suspect that she would be much sicker. For completeness, I would order: CT A/P, HIV Ag/AB, CSF VDRL, syphilis screen, fungal BCX, Legionella uAG. The remainder of the AMS workup will be deferred to Neurology. CT abd/pelvis- 1. Subtle right perinephric edema is nonspecific, cannot rule out right pyelonephritis, correlate clinically and with labs. 2. Possible proctitis or stercoral colitis. 3. Possible mild gastroenteritis or ileus. 4. Bibasilar infiltrates and pleural effusion, greater on the right, are nonspecific, cannot rule out pneumonia. 5. Normal appendix. Blood work - ordered and pending 03/24 - discussed with ID, as patient still febrile last evening and results of CSF now showing coag negative staph, likely contaminant. Stopping ampicillin, remdesivir. Recommend to continue with Vanco Zosyn, and can consider doxycycline. Tickborne panel, UA repeat with straight cath, LDH and reticulocyte count. 03/25 - Pt is awake, alert , following commands. Afebrile today but febrile yesterday. Currently on vanco, zosyn, doxy. + LLQ abd. discomfort, + diarrhea. Will test for c. diff. 03/26 Afebrile. c. diff negative. no abd. pain. awake and alert. 03/29 Discussed with ID again. Plan to continue with vanco, zosyn, doxy for 2 weeks. Or at least until results of anaplasma, and babesia are back. (MRSA swab was positive, therefore cont. vanco. Pt seemed to initially improve on this combination of antibiotic.) 03/30 (+) fever 38.2 Still very weak Repeat blood cultures, chest x-ray, urinalysis Repeat respiratory panel Continue vancomycin, Zosyn, doxycycline Discussed with ID Dr. Byrd, does not recommend escalation of IV antibiotics, monitor closely, if with persistent fever, consider transfer to [facility] PPN 03/31 Remains febrile Remains very weak with poor appetite Cultures pending CT abdomen pelvis: Unrevealing Currently on vancomycin, Zosyn, doxycycline since March 24, 2019 Discussed transfer to [facility] with patient's , and he is agreeable Messaged Dr. Byrd ID about this plan, awaiting response Speech therapy evaluation: Recommend n.p.o. status given patient's generalized weakness Currently on PPN day #8 COVID 19 virus infection Remains asymptomatic otherwise but very weak COVID precautions Does not require any more COVID precautions she is about 14 days out of initial COVID infection Remdesivir added in light of elevated CRP. Received 4 doses, discussed with ID remdesivir stopped on 03/24 Right upper ext edema US:IMPRESSION: No venous thrombus within the right upper extremity. History of asthma Continue home inhalers No acute symptoms Hypertension On amlodipine BP elevated As needed hydralazine for now GERD Omeprazole History of hyponatremia On salt tablets - can't take Po consistently at this time on PPN cont. to monitor History of factor V Leiden deficiency History of DVT Seems current not on anticoagulation Needs follow-up Bowel regimen no BM for days daily miralax and Senna S BID ordered initially -> then pt was npo for several days had loose stool and abd. discomfort. c. diff negative. cont. to monitor stools DVT prophylaxis Lovenox 40mg SC daily Disposition Pending will need to be transferred to [facility] Admission and Anticipated Discharge Date Admission Date: March 11, 2023 Subjective ff up for weakness, fever, etc. Resting in bed, very weak, drowsy Answer simple questions with few words Reports headache, neck pain, abdominal pain Appetite is very poor No shortness of breath, chest pain No other new symptoms Review of Systems Review of Systems: all noted and negative except for above Physical Exam Physical Exam: General- oriented x 2, not in distress, speaks in sentences with no effort or accessory muscle use very Weak, frail Eyes- anicteric Neck- no JVD Lungs- clear breath sounds bilaterally, no rales/wheezes Heart- normal rate, regular rhythm; no murmurs Abdomen- normal bowel sounds, nondistended, soft, nontender Extremities- no pretibial edema, no calf tenderness Neuro- alert, oriented x 3; no gross focal neurologic deficits Skin- warm & dry Results & Data Results & Data Vital Signs (Past 12 Hours) Vital Signs Temp Pulse Pulse Resp BP BP Pulse Ox 03/31/23 11:35 37.7 C H 100 H 20 165/83 H 96 03/31/23 07:48 38.3 C H 87 20 153/72 H 94 03/31/23 06:01 89 03/31/23 04:11 37.0 C 97 H 20 153/76 H 96 03/31/23 02:28 91 H O2 Del Method 03/31/23 11:35 Room Air 03/31/23 07:48 Room Air 03/31/23 06:01 03/31/23 04:11 Room Air 03/31/23 02:28 all noted and reviewed including below
--- NOTE | 2023-03-31 13:20 | Pharmacy Report ---
Pharmacy PK ABX Note - Date of Service March 31, 2023 - Assessment and Plan Assessment * Ms Palacios is a 77 year old F receiving vancomycin, Zosyn, and doxycycline for 2 weeks per infectious diseases. Unclear etiology. * Pt was admitted on 03/11 for significant weakness, following an admission for COVID-19 (diagnosed 03/01/23). * Relevant micro: 03/21 CSF culture growing coagulase negative Staphylococcus (sensitive to daptomycin, oxacillin, Bactrim, and vancomycin), MRSA nasal screen positive, and all other cultures/serologies negative. * Spiking fevers over past 24 hours (Tmax: 38.3 C). * Renal function has been stable, will trend SCr tomorrow since it is slightly elevated from day prior. * Stop dates for vancomycin and Zosyn of 04/05/23. Plan Vancomycin * Current regimen: 1250 mg IV every 12 hours * Trough level obtained 03/31/23 resulted as 16 mcg/mL. This is predicted to achieve target AUC/AIDA of 400-600 mg/L.hr * Predicted AUC at steady state: > 600 mg/L.hr * Despite predicted AUC above goal, will continue current vancomycin regimen since level is okay and patient is spiking fevers. If SCr continued to trend upward tomorrow, will likely need to decrease dose. * Will repeat level in the next 48-72 hours if therapy is continued and/or change in patient clinical status Zosyn * 4.5 g IV q8h Doxycycline * 100 mg IV q12h Pharmacy will continue to follow and will adjust dose/frequency as necessary. Thank you. Pharmacy has transitioned to AUC monitoring for vancomycin. AUC/AIDA is the preferred PK/PD target and is associated with decreased risk of nephrotoxicity compared to traditional trough targets.
[2023-03-31] MEDS ORDERED: CLINOLIPID 20% IV FAT EMULSION 250 ML IV SCH (16:00)
[2023-03-31] MEDS ORDERED: PERIPHERAL TPN IV SCH (16:00)
[2023-03-31] MEDS ORDERED: [UNRECOGNIZED DRUG - OTHER] IV SCH (16:00)
[2023-03-31 16:39] LABS: C Reactive Protein 23.37 mg/dl (0-0.5)
[2023-03-31 17:17] LABS: D Dimer 5210 ug/L FEU (0-500)
--- NOTE | 2023-03-31 18:18 | Magnetic Resonance Report ---
CLINICAL HISTORY: ff up cervical spine edema TECHNIQUE: MRI of the cervical spine is performed utilizing various T1 and T2 sequences in the axial and sagittal planes. IV contrast was not administered for this examination. Comparison: Comparison is made to MRI cervical spine 03/22/2023 FINDINGS: C2-C3: Broad-based posterior disc bulge resulting in mild bilateral neural foraminal stenosis. C3-C4: Broad-based posterior disc bulge and facet arthropathy resulting in moderate bilateral neural foraminal stenosis and mild canal stenosis. C4-C5: Broad-based posterior disc bulge and facet arthropathy result in moderate to severe bilateral neuroforaminal stenosis and moderate canal stenosis, AP diameter 8 mm. C5-C6: Broad-based posterior disc bulge and facet arthropathy result in severe bilateral neural alisson inal stenosis with moderate canal stenosis, AP diameter 7 mm.. C6-C7: Broad-based posterior disc bulge and facet arthropathy result in severe bilateral neuroforamin al stenosis with moderate canal stenosis, AP diameter 7 mm. C7-T1: Unremarkable. The spinal ligaments are intact, without evidence of disruption or abnormal signal intensity. The spi nal cord is normal in signal intensity and there is no evidence of cord edema. There is no evidence o f an extradural, intradural, extramedullary or intramedullary lesion. Soft tissue edema is noted. Thi s is minimally decreased in extent to prior exam. Visualized brain parenchyma is normal. IMPRESSION: Multilevel degenerative changes are again seen. Redemonstration of soft tissue edema in the paraverte bral region, slightly decreased in conspicuity from prior exam. ACT 112: Negative or not required by law. Electronically signed by: Paul Wallace M.D. 03/31/2023 6:16 PM
[2023-03-31] MEDS: [UNRECOGNIZED DRUG - OTHER] IV SCH (19:45)
[2023-03-31] MEDS: PERIPHERAL TPN IV SCH (19:45)
[2023-03-31] MEDS: MONTELUKAST SODIUM 10 MG TABLET PO SCH (19:47)
[2023-03-31] MEDS ORDERED: OPTIRAY 320 125ml IV ONE (21:01)
--- NOTE | 2023-03-31 21:43 | CT Scan Report ---
Exam(s): CTA CHEST IV Amt: 117 cc otpi 320 EXAM: CT Angiography Chest With Intravenous Contrast CLINICAL HISTORY: Reason for exam: PE. TECHNIQUE: Axial computed tomographic angiography images of the chest with intravenous contrast. CTDI is 22.86 mGy and DLP is 698.09 mGy-cm. Automated exposure control was utilized for the study. A dose lowering technique was utilized adhering to the principles of ALARA. MIP reconstructed images were created and reviewed. COMPARISON: No relevant prior studies available. FINDINGS: Pulmonary arteries: Unremarkable. No acute pulmonary embolism. Aorta: Atherosclerotic changes of the aorta. No thoracic aortic aneurysm. Lungs: Atelectasis at the lung bases. Trace LEFT pleural effusion. No mass. Pleural space: See above. Heart: Mild cardiomegaly. No evidence of RV dysfunction. No pericardial effusion. Bones/joints: Degenerative changes of the spine. No acute fracture. No dislocation. Soft tissues: Unremarkable. Lymph nodes: Unremarkable. No enlarged lymph nodes. IMPRESSION: 1. No acute pulmonary embolism. 2. Atelectasis at the lung bases. Trace LEFT pleural effusion. Electronically signed by: Ever Rubin MD 03/31/23 21:42 PM
[2023-03-31] MEDS: STOP CLINOLIPID SCH (21:47)
--- NOTE | 2023-03-31 21:48 | Ultrasound Report ---
Exam(s): US VENOUS BILATERAL LOWER EXTREMITIES EXAM: US Duplex Bilateral Lower Extremities Veins CLINICAL HISTORY: Reason for exam: r/o DVT. TECHNIQUE: Real-time duplex ultrasound scan of the bilateral lower extremity veins integrating B-mode two-dimensional vascular structure, Doppler spectral analysis, color flow Doppler imaging and compression. COMPARISON: No relevant prior studies available. FINDINGS: Right deep veins: Unremarkable. No DVT in the right common femoral, femoral, proximal deep femoral or popliteal veins. The veins demonstrate normal color flow, are normally compressible, with normal phasic flow and/or augmentation response. Right superficial veins: Unremarkable. No thrombus in the visualized right great saphenous vein. Left deep veins: Patient unable to tolerate compression of the LEFT distal femoral vein. LEFT posterior tibial vein not visualized. No DVT in the left common femoral, femoral, proximal deep femoral or popliteal veins. The veins demonstrate normal color flow, are normally compressible, with normal phasic flow and/or augmentation response. Left superficial veins: Unremarkable. No thrombus in the visualized left great saphenous vein. Soft tissues: No acute findings. No popliteal cyst. Other findings: Fluid collection in the LEFT anterior knee measures 8 cm. IMPRESSION: No DVT of the bilateral lower extremities. Fluid collection in the LEFT anterior knee measures 8 cm. Electronically signed by: Ever Rubin MD 03/31/23 21:47 PM
[2023-04-01] MEDS: PIPER/TAZO 4.5g in D5W MINI-B 100 ML IV SCH ×3 (01:46→18:18)
[2023-04-01 06:44] LABS: Basophils # (auto) 0.09 K/uL (0.00-0.20); Basophils % (auto) 0.9 %; Eosinophils # (auto) 0.77 K/uL (0.00-0.50); Eosinophils % (auto) 7.4 %; Hematocrit (blood only) 29.1 % (37.0-47.0); Hemoglobin 9.1 g/dl (12.0-16.0); Immature Granulocytes # (auto) 0.15 K/uL (0.01-0.20); Immature Granulocytes % (auto) 1.4 %; Lymphocytes # (auto) 1.42 K/uL (1.20-3.40); Lymphocytes % (auto) 13.6 %; Mean Corpuscular Hemoglobin 26.3 pg (25.0-34.0); Mean Corpuscular Hgb Conc 31.3 g/dL (32.0-36.0); Mean Corpuscular Volume 84.1 fL (80.0-100.0); Mean Platelet Volume 10.3 fL (9.4-12.4); Monocytes # (auto) 1.27 K/uL (0.11-0.59); Monocytes % (auto) 12.2 %; Neutrophils # (auto) 6.73 K/uL (1.40-6.50); Neutrophils % (auto) 64.5 %; Platelet Count 381 K/uL (130-400); RDW Coefficient of Variation 13.9 % (11.5-14.5); RDW Standard Deviation 42.9 fL (36.4-46.3); Red Blood Count 3.46 M/uL (4.20-5.40); White Blood Count 10.43 K/ul (4.8-10.8)
[2023-04-01 07:17] LABS: BUN Creatinine Ratio 28.3 (10-20); Calcium 8.6 mg/dl (8.6-10.3); Creatinine Clr Calc Pharmacy 85.2 ml/min; Est GFR (African American) 102.6 ml/min; Est GFR (Non-African American) 88.5 ml/min; Magnesium 1.8 mg/dl (1.7-2.4); Potassium 3.7 mmol/L (3.5-5.1)
[2023-04-01] MEDS: DICLOFENAC SOD 1% GEL 100 GM TUBE EXT SCH ×2 (09:29→23:09)
[2023-04-01] MEDS: PANTOprazole 40 MG in SYRINGE 0 ML IV SCH (09:30)
[2023-04-01] MEDS: ENOXAPARIN INJ 40 MG/0.4 ML SYR SQ SCH (09:30)
[2023-04-01] MEDS: DOXYCYCLINE HYCLATE 100 MG in DEXTROSE 5% MINI-B 100 ML IV SCH ×2 (09:30→21:35)
[2023-04-01] MEDS: FLUTICASONE PROPIONATE NA SPR 16 GM BTL SCH (09:31)
[2023-04-01] MEDS: IPRATROPIUM BROMIDE NASAL SPRAY 0.06% 15ML NAE SCH ×2 (09:31→21:26)
[2023-04-01] MEDS: FAMOTIDINE 20 MG in SYRINGE 3 ML IV SCH ×2 (09:31→21:36)
[2023-04-01] MEDS: VANCOMYCIN HCL 1,250 MG in SODIUM CHLORIDE 0.9% 250 ML IV SCH (09:32)
[2023-04-01] MEDS: POLYETHYLENE (MIRALAX) 17 GM PACK PO SCH (09:46)
[2023-04-01 09:58] LABS: Anti-Striated Muscle NEGATIVE (NEGATIVE); Receptor Binding Ab <0.30 nmol/L
[2023-04-01] MEDS: amLODIPine BESYLATE 5 MG TAB PO SCH (11:56)
[2023-04-01] MEDS: ASPIRIN 300 MG SUPP PR SCH (11:56)
[2023-04-01] MEDS: CALCIUM 600MG + VIT D 400 IU TAB PO SCH (11:57)
[2023-04-01] MEDS: DOCUSATE SODIUM/SENNA 50/8.6MG TAB PO SCH ×2 (11:57→21:25)
[2023-04-01] MEDS: TOCOPHERYL, DL-ALPHA 400 UNITS 180 MG CAP PO SCH (11:57)
[2023-04-01] MEDS: SODIUM CHLORIDE 1 GM TABLET PO SCH ×2 (11:57→21:25)
--- NOTE | 2023-04-01 14:37 | Hospitalist Progress Note ---
Date of Service April 01, 2023 Assessment & Plan (1) Weakness: Plan: per previous hospitalist notes with addendum: 77 yo F with mild intermittent asthma, hypertension, irritable bowel syndrome, GERD, chronic interstitial cystitis without hematuria, generalized osteoarthritis, memory disturbance, factor V Leiden mutation, history of CVA, hyponatremia, history of DVT comes because of weakness. Patient was recently diagnosed COVID on March 01 and got admitted and was discharged on March 03. Patient states after going home she was fine for few days. Then she was feeling very weak and tired. Not able to ambulate much. Legs are sore. This reason she came back. Thinks she might have low-grade fever. A week ago she had some chest discomfort that got resolved. FEVER OF UNKNOWN ORIGIN, PROFOUND GENERALIZED WEAKNESS, IN THE SETTING OF RECENT COVID-19 VIRUS INFECTION COVID test has been positive on 03/01/2023 and again 03/11/2023 during this admission Initially, patient's generalized weakness was improving, was able to eat and walking around the her bed with physical therapy Neurology was consulted and felt no further w/u needed likely all in setting of illness and deconditioning Starting Tuesday, patient developed generalized weakness again On Tuesday, was showing profound generalized weakness, Signs of possible aspiration Neurologist re-consulted Recommend lumbar puncture and check CK level Status post lumbar puncture WBC, glucose, protein within normal limits Gram stain/ csf cultx: Coag negat. staph Positive fever starting on 03/21/23 -daptomycin plus Zosyn started Remdesivir also started given patient's increased CRP - will stop now (03/24, pt received 4 doses - this was discussed w/ ID) Chest x-ray: No pneumonia. Repeated CXR - some pulm vasc congestion, R basilar opacity Urine analysis: Negative, will repeated - negat. Blood cultures: Pending Fungal cultx : pending Patient remained with generalized weakness, poor intake, drowsiness-high aspiration risk Neurology and infectious disease consulted Neurology (03/22) - Lethargy in a 77F with a PMH of recent COVID 19 infection, HTN, prior DVT and spinal stenosis. On exam she is lethargic and follows simple commands. There is no clear focality to her exam/position may be issue By report she has had similar (less severe) episodes in the past with immunizations. GBS is ruled out due to low proteins in the CSF, CSF is also negative for infections Stroke or cervical spinal pathology, another potential cause could be post-COVID 19 fatigue or an underlying muscle disorder. Plan -- MRI of the brain without contrast, MRI of the C-spine with contrast Myasthenia gravis antibodies - pending Brain MRI - 1. Mild age-related findings. 2. No acute infarct, bleed, or acute intracranial abnormality. Cervical spine MRI - 1. Moderate prevertebral edema, intramuscular edema in the posterior muscles, and interspinous ligamentous edema, nonspecific, may be inflammatory/infectious or posttraumatic.2. No epidural abscess or abnormal cord signal.3. Borderline central spinal stenosis C4-5, C5-6 and C6-7, degenerative. 03/23 -discussed over the phone with neurology results of MRIs, noted extensive inflammation, and considering high-dose steroid. This will need to be further discussed with ID. ID (03/22/23) - Neurology initially attributed her weakness to deconditioning. On follow up, they recommended an LP (03/20). Until the LP was completed, all cultures were negative. Chest imaging was also negative. The CSF is currently growing GPC. The patient is being treated with daptomycin and Zosyn. I cannot explain the patient's persistent symptoms. Until the organism in the CSF has been identified, I would use HAT BLOCK BENCH HAND-dosed ABX (vancomycin plus ceftriaxone/cefepime plus ampicillin). However, my suspicion for a true bacterial meningitis is low. If she had a typical organism (eg pneumococcus) I suspect that she would be much sicker. For completeness, I would order: CT A/P, HIV Ag/AB, CSF VDRL, syphilis screen, fungal BCX, Legionella uAG. The remainder of the AMS workup will be deferred to Neurology. CT abd/pelvis- 1. Subtle right perinephric edema is nonspecific, cannot rule out right pyelonephritis, correlate clinically and with labs. 2. Possible proctitis or stercoral colitis. 3. Possible mild gastroenteritis or ileus. 4. Bibasilar infiltrates and pleural effusion, greater on the right, are nonspecific, cannot rule out pneumonia. 5. Normal appendix. Blood work - ordered and pending 03/24 - discussed with ID, as patient still febrile last evening and results of CSF now showing coag negative staph, likely contaminant. Stopping ampicillin, remdesivir. Recommend to continue with Vanco Zosyn, and can consider doxycycline. Tickborne panel, UA repeat with straight cath, LDH and reticulocyt e count. 03/25 - Pt is awake, alert , following commands. Afebrile today but febrile yesterday. Currently on vanco, zosyn, doxy. + LLQ abd. discomfort, + diarrhea. Will test for c. diff. 03/26 Afebrile. c. diff negative. no abd. pain. awake and alert. 03/29 Discussed with ID again. Plan to continue with vanco, zosyn, doxy for 2 weeks. Or at least until results of anaplasma, and babesia are back. (MRSA swab was positive, therefore cont. vanco. Pt seemed to initially improve on this combination of antibiotic.) 03/30 (+) Recurrence of fever 38.2, after 5 days of being afebrile Still very weak Repeat blood cultures, chest x-ray, urinalysis Repeat respiratory panel: Negative Continue vancomycin, Zosyn, doxycycline Discussed with ID Dr. Byrd, does not recommend escalation of IV antibiotics, monitor closely, if with persistent fever, consider transfer to [facility] PPN 03/31 Remains febrile Remains very weak with poor appetite Cultures pending CT abdomen pelvis: Unrevealing Currently on vancomycin, Zosyn, doxycycline since March 24, 201904/01 Afebrile this morning Alert awake more awake but still very weak Blood cultures: Negative so far Urine culture: Negative so far Anaplasma, babesiosis: Negative CT chest: No PE Lower extremity Dopplers: No DVT Cervical spine MRI follow-up: Redemonstration of soft tissue edema in the paravertebral region, slightly decreased in conspicuity from prior exam. Continue broad-spectrum antibiotics including vancomycin, Zosyn, doxycycline day 9 out of 14 Discussed transfer to [facility] with patient's , and he is agreeable Patient accepted to [facility], awaiting bed availability Speech therapy evaluation: Recommend n.p.o. status given patient's generalized weakness Currently on PPN day #9 COVID 19 virus infection Remains asymptomatic otherwise but very weak COVID precautions Does not require any more COVID precautions she is about 14 days out of initial COVID infection Remdesivir added in light of elevated CRP. Received 4 doses, discussed with ID remdesivir stopped on 1/18 Right upper ext edema US:IMPRESSION: No venous thrombus within the right upper extremity. History of asthma Continue home inhalers No acute symptoms Hypertension On amlodipine BP elevated As needed hydralazine for now GERD Omeprazole History of hyponatremia On salt tablets - can't take Po consistently at this time on PPN cont. to monitor History of factor V Leiden deficiency History of DVT Seems not on anticoagulation at home Needs follow-up on Lovenox 40mg SC for DVT prophylaxis Bowel regimen no BM for days daily miralax and Senna S BID ordered initially -> then pt was npo for several days had loose stool and abd. discomfort. c. diff negative. cont. to monitor stools DVT prophylaxis Lovenox 40mg SC daily Disposition Pending will need to be transferred to [facility] Admission and Anticipated Discharge Date Admission Date: March 11, 2023 Subjective Follow-up for weakness, fever, etc. Seen with patient's family at bedside Patient is more awake today as per family, more conversant but still weak Able to try a few spoons Few sips of coffee Patient is oriented but very weak States that she has some mild generalized headache Denies any other pain in her body No shortness of breath, cough No abdominal pain, nausea No any other new symptoms Review of Systems Review of Systems: all noted and negative except for above Physical Exam Physical Exam: General- oriented x 2, not in distress, speaks in sentences with no effort or accessory muscle use very weak, frail Eyes- anicteric Neck- no JVD Lungs- clear breath sounds bilaterally, no rales/wheezes Heart- normal rate, regular rhythm; no murmurs Abdomen- normal bowel sounds, nondistended, soft, no tenderness Extremities- no pretibial edema, no calf tenderness Neuro- alert, oriented x 2; no gross focal neurologic deficits Skin- warm & dry Results & Data Results & Data Vital Signs (Past 12 Hours) Vital Signs Temp Pulse Resp BP BP Pulse Ox O2 Del Method 04/01/23 11:18 36.8 C 87 18 153/75 H 95 Room Air 04/01/23 07:54 36.5 C 89 16 167/74 H 96 Room Air 04/01/23 02:34 36.5 C 92 H 18 174/79 H 95 Room Air all noted and reviewed including below
[2023-04-01] MEDS ORDERED: PERIPHERAL TPN IV SCH (16:00)
[2023-04-01] MEDS ORDERED: CLINOLIPID 20% IV FAT EMULSION 250 ML IV SCH (16:00)
[2023-04-01] MEDS ORDERED: [UNRECOGNIZED DRUG - OTHER] IV SCH (16:00)
[2023-04-01] MEDS: MONTELUKAST SODIUM 10 MG TABLET PO SCH (21:25)
[2023-04-01] MEDS: VANCOMYCIN HCL 1,000 MG in SODIUM CHLORIDE 0.9% 250 ML IV SCH (23:08)
[2023-04-01] MEDS: STOP CLINOLIPID SCH (23:11)
[2023-04-02] MEDS: PIPER/TAZO 4.5g in D5W MINI-B 100 ML IV SCH ×2 (02:42→09:56)
[2023-04-02 07:02] LABS: Basophils # (auto) 0.09 K/uL (0.00-0.20); Basophils % (auto) 1.1 %; Eosinophils # (auto) 0.83 K/uL (0.00-0.50); Eosinophils % (auto) 10.2 %; Hematocrit (blood only) 26.8 % (37.0-47.0); Hemoglobin 8.7 g/dl (12.0-16.0); Immature Granulocytes % (auto) 1.2 %; Lymphocytes # (auto) 1.47 K/uL (1.20-3.40); Lymphocytes % (auto) 18.1 %; Mean Corpuscular Hemoglobin 27.3 pg (25.0-34.0); Mean Corpuscular Hgb Conc 32.5 g/dL (32.0-36.0); Monocytes # (auto) 1.04 K/uL (0.11-0.59); Monocytes % (auto) 12.8 %; Neutrophils # (auto) 4.58 K/uL (1.40-6.50); Neutrophils % (auto) 56.6 %; Platelet Count 394 K/uL (130-400); RDW Coefficient of Variation 13.9 % (11.5-14.5); RDW Standard Deviation 42.4 fL (36.4-46.3); Red Blood Count 3.19 M/uL (4.20-5.40); White Blood Count 8.11 K/ul (4.8-10.8)
[2023-04-02 07:33] LABS: BUN Creatinine Ratio 31.5 (10-20); Bilirubin,Total 0.4 mg/dl (0.2-1.0); Calcium 8.6 mg/dl (8.6-10.3); Creatinine Clr Calc Pharmacy 95.5 ml/min; Est GFR (African American) 106.2 ml/min; Est GFR (Non-African American) 91.7 ml/min; Magnesium 1.8 mg/dl (1.7-2.4); Phosphorus 3.3 mg/dl (2.5-4.9); Potassium 4.1 mmol/L (3.5-5.1)
[2023-04-02] MEDS: amLODIPine BESYLATE 5 MG TAB PO SCH (08:12)
[2023-04-02] MEDS: SODIUM CHLORIDE 1 GM TABLET PO SCH (08:14)
[2023-04-02] MEDS: PANTOprazole 40 MG in SYRINGE 0 ML IV SCH (08:15)
[2023-04-02] MEDS: DICLOFENAC SOD 1% GEL 100 GM TUBE EXT SCH (08:16)
[2023-04-02] MEDS: DOCUSATE SODIUM/SENNA 50/8.6MG TAB PO SCH (08:17)
[2023-04-02] MEDS: DOXYCYCLINE HYCLATE 100 MG in DEXTROSE 5% MINI-B 100 ML IV SCH (08:18)
[2023-04-02] MEDS: ENOXAPARIN INJ 40 MG/0.4 ML SYR SQ SCH (08:18)
[2023-04-02] MEDS: FLUTICASONE PROPIONATE NA SPR 16 GM BTL SCH (08:19)
[2023-04-02] MEDS: FAMOTIDINE 20 MG in SYRINGE 3 ML IV SCH (08:32)
[2023-04-02] MEDS: ASPIRIN 300 MG SUPP PR SCH (08:32)
[2023-04-02] MEDS: POLYETHYLENE (MIRALAX) 17 GM PACK PO SCH (08:32)
[2023-04-02] MEDS: IPRATROPIUM BROMIDE NASAL SPRAY 0.06% 15ML NAE SCH (08:33)
[2023-04-02] MEDS: VANCOMYCIN HCL 1,000 MG in SODIUM CHLORIDE 0.9% 250 ML IV SCH (08:33)
[2023-04-02] MEDS: CALCIUM 600MG + VIT D 400 IU TAB PO SCH (12:06)
[2023-04-02] MEDS: TOCOPHERYL, DL-ALPHA 400 UNITS 180 MG CAP PO SCH (12:06)
--- NOTE | 2023-04-02 13:12 | Discharge Summary ---
Discharge Summary Date of Service April 02, 2023 Notes For Next Care Provider Medication Changes From Visit currently on Vancomycin, Zosyn, Doxycycline IV Admission HPI Per Admitting Provider 77-year-old female with past medical history significant for mild intermittent asthma, hypertension, irritable bowel syndrome, GERD, chronic interstitial cystitis without hematuria, generalized osteoarthritis, memory disturbance, factor V Leiden mutation, history of CVA, hyponatremia, history of DVT comes because of weakness. Patient was recently diagnosed COVID on March 01 and go t admitted and was discharged on March 03. Patient states after going home she was fine for few days. Then she was feeling very weak and tired. Not able to ambulate much. Legs are sore. This reason she came back today. Thinks she might have low-grade fever. A week ago she had some chest discomfort that got resolved. Appetite is okay. No headache. Vision is okay. No runny nose or sore throat. No cough. No shortness of breath. No abdominal pain. Normal bowel and bladder movements. Past medical history as mentioned above Past social history. Colonoscopy. Cystoscopy. Dilatation curettage. EGD. EGD with endoscopic ultrasound. Bilateral cataracts. Social history. . Former smoker. Smoked for 3 years at age of 22. No alcohol. No drug use. Family history. Mother had diabetes. Eye problems. Heart disorder. Hypertension. Father had heart disorder. Admission Exam Per Admitting Provider General- Not in distress Head- atraumatic Eyes- PERRL. ENT- oropharynx clear Neck- supple, no JVD. Lungs- clear to auscultation no wheezing or crackles Heart- regular rhythm; no murmur, no gallop. Abdomen- normal bowel sounds, soft, nontender, no distension Extremities- no pretibial edema, no erythema seen Neuro- alert, oriented x 3; PERRL no facial palsy; no dysarthria; moves extremities Skin- warm & dry Principal Dx & Hospital Course #1 = Principal Diagnosis (1) Weakness: 77 yo F with mild intermittent asthma, hypertension, irritable bowel syndrome, GERD, chronic interstitial cystitis without hematuria, generalized osteoarthritis, memory disturbance, factor V Leiden mutation, history of CVA, hyponatremia, history of DVT comes because of weakness. Patient was recently diagnosed COVID on March 01 and got admitted and was discharged on March 03. Patient states after going home she was fine for few days. Then she was feeling very weak and tired. Not able to ambulate much. Legs are sore. This reason she came back. Thinks she might have low-grade fever. A week ago she had some chest discomfort that got resolved. FEVER OF UNKNOWN ORIGIN, PROFOUND GENERALIZED WEAKNESS, IN THE SETTING OF RECENT COVID-19 VIRUS INFECTION COVID test has been positive on 03/01/2023 and again 03/11/2023 during this admission Initially, patient's generalized weakness was improving, was able to eat and walk around her bed with physical therapy Neurology was consulted and felt no further w/u needed likely all in setting of illness and deconditioning A few days later, patient developed generalized weakness again Progressed seen to profound generalized weakness, with signs of aspiration Neurologist re-consulted Recommend lumbar puncture and CK level Status post lumbar puncture WBC, glucose, protein within normal limits However Gram stain/ csf cultx: Coag negat. staph Chest x-ray: No pneumonia. Repeated CXR - some pulm vasc congestion, R basilar opacity Urine analysis: Negative, Blood cultures: Negative Fungal cultx : Negative CRP elevated at 24 Remdesivir given x 4 days Neurology and infectious disease consulted Neurology (03/22) - Lethargy in a 77F with a PMH of recent COVID 19 infection, HTN, prior DVT and spinal stenosis. On exam she is lethargic and follows simple commands. There is no clear focality to her exam/position may be issue By report she has had similar (less severe) episodes in the past with immunizations. GBS is ruled out due to low proteins in the CSF, CSF is also negative for infections Stroke or cervical spinal pathology, another potential cause could be post-COVID 19 fatigue or an underlying muscle disorder. Plan -- MRI of the brain without contrast, MRI of the C-spine with contrast Myasthenia gravis antibodies - pending Brain MRI - 1. Mild age-related findings. 2. No acute infarct, bleed, or acute intracranial abnormality. Cervical spine MRI - 1. Moderate prevertebral edema, intramuscular edema in the posterior muscles, and interspinous ligamentous edema, nonspecific, may be inflammatory/infectious or posttraumatic.2. No epidural abscess or abnormal cord signal.3. Borderline central spinal stenosis C4-5, C5-6 and C6-7, degenerative. 03/23 -discussed over the phone with neurology results of MRIs, noted extensive inflammation, and considering high-dose steroid. This will need to be further discussed with ID. ID (03/22/23) - Neurology initially attributed her weakness to deconditioning. On follow up, they recommended an LP (03/20). Until the LP was completed, all cultures were negative. Chest imaging was also negative. The CSF is currently growing GPC. The patient is being treated with daptomycin and Zosyn. I cannot explain the patient's persistent symptoms. Until the organism in the CSF has been identified, I would use SIGN MAINTENANCE-dosed ABX (vancomycin plus ceftriaxone/cefepime plus ampicillin). However, my suspicion for a true bacterial meningitis is low. If she had a typical organism (eg pneumococcus) I suspect that she would be much sicker. For completeness, I would order: CT A/P, HIV Ag/AB, CSF VDRL, syphilis screen, fungal BCX, Legionella uAG. The remainder of the AMS workup will be deferred to Neurology. CT abd/pelvis- 1. Subtle right perinephric edema is nonspecific, cannot rule out right pyelonephritis, correlate clinically and with labs. 2. Possible proctitis or stercoral colitis. 3. Possible mild gastroenteritis or ileus. 4. Bibasilar infiltrates and pleural effusion, greater on the right, are nonspecific, cannot rule out pneumonia. 5. Normal appendix. 03/24 - discussed with ID, as patient still febrile last evening and results of CSF now showing coag negative staph, likely contaminant. Stopping ampicillin, remdesivir. Recommend to continue with Vanco Zosyn, and can consider doxycycline. Tickborne panel, UA repeat with straight cath, LDH and reticulocyte count. 03/25 - Pt is awake, alert , following commands. Afebrile today but febrile yesterday. Currently on vanco, zosyn, doxy. + LLQ abd. discomfort, + diarrhea. Will test for c. diff. 03/26 Afebrile. c. diff negative. no abd. pain. awake and alert. 03/29 Discussed with ID again. Plan to continue with vanco, zosyn, doxy for 2 weeks. Or at least until results of anaplasma, and babesia are back. (MRSA swab was positive, therefore cont. vanco. Pt seemed to initially improve on this combination of antibiotic.) 03/30 (+) Recurrence of fever 38.2, after 5 days of being afebrile Still very weak Repeat blood cultures, chest x-ray, urinalysis ordered Repeat respiratory panel: Negative Continue vancomycin, Zosyn, doxycycline Discussed with ID Dr. Byrd, does not recommend escalation of IV antibiotics, monitor closely, if with persistent fever, consider transfer to [facility] PPN 03/31 Remains febrile Remains very weak with poor appetite Cultures pending CT abdomen pelvis: Unrevealing Currently on vancomycin, Zosyn, doxycycline since March 24, 2019 Discussed transfer to [facility] with patient's , and he is agreeable Patient accepted to [facility], awaiting bed availability 04/01 Afebrile this morning Alert awake more awake but still very weak Blood cultures: Negative so far Urine culture: Negative so far Anaplasma, babesiosis: Negative CT chest: No PE Lower extremity Dopplers: No DVT Cervical spine MRI follow-up: Redemonstration of soft tissue edema in the paravertebral region, slightly decreased in conspicuity from prior exam. 04/02 Had another fever episode of 39.9 this morning Able to have a whole cup of yogurt for breakfast, talking more but still generally weak Denies any new symptoms Continue broad-spectrum antibiotics including vancomycin, Zosyn, doxycycline day 10 out of 14 Speech therapy evaluation: Recommend n.p.o. status given patient's generalized weakness Currently on PPN day #10 Reevaluation by neurology service for profound generalized weakness, possible poly radiculopathy Revisit steroid administration Also needs close evaluation by infectious disease service COVID 19 virus infection Remains asymptomatic otherwise but very weak Remdesivir added in light of elevated CRP. Received 4 doses, discussed with ID remdesivir stopped on 03/24 Right upper ext edema US:IMPRESSION: No venous thrombus within the right upper extremity. History of asthma Continue home inhalers No acute symptoms Hypertension On amlodipine BP elevated As needed hydralazine for now GERD Omeprazole History of hyponatremia On salt tablets - can't take Po consistently at this time on PPN cont. to monitor History of factor V Leiden deficiency History of DVT Seems not on anticoagulation at home Needs follow-up on Lovenox 40mg SC for DVT prophylaxis Bowel regimen no BM for days daily miralax and Senna S BID ordered initially -> then pt was npo for several days had loose stool and abd. discomfort. c. diff negative. cont. to monitor stools DVT prophylaxis Lovenox 40mg SC daily Disposition Pending will need to be transferred to [facility] Discharge Exam General- oriented x 2, not in distress, speaks in sentences with no effort or accessory muscle use Weak Eyes- anicteric Neck- no JVD Lungs- clear breath sounds bilaterally, no rales/wheezes Heart- normal rate, regular rhythm; no murmurs Abdomen- normal bowel sounds, nondistended, soft, nontender Extremities- no pretibial edema, no calf tenderness Mild edema right forearm No warmth/erythema/tenderness Neuro- alert, oriented x 3; no gross focal neurologic deficits Skin- warm & dry Updated Medication List Medication Instructions Recorded Confirmed Type aspirin 325 mg tablet 325 mg PO QAM 05/23/18 03/11/23 History calcium carbonate 600 mg-vitamin 1 cap PO QDL 05/23/18 03/11/23 History D3 62.5 mcg (2,500 unit) capsule esomeprazole magnesium 40 mg 40 mg PO DAILYBB 05/23/18 03/11/23 History capsule,delayed release (Nexium) ipratropium bromide 21 mcg (0.03 2 sprays intranasal BID 05/23/18 03/11/23 History %) nasal spray montelukast 10 mg tablet 10 mg PO HS 05/23/18 03/11/23 History (Singulair) multivitamin 1 tab PO QDL 05/23/18 03/11/23 History vitamin E 268 mg (400 unit) capsule 400 unit PO QDL 01/26/19 03/11/23 History calcium carbonate 400 mg calcium 400 mg PO DIRECTED PRN Gi Upset 05/10/19 03/11/23 History (1,000 mg) chewable tablet (Tums Ultra) fluticasone propionate 50 2 spray intranasal QAM 07/29/20 03/11/23 History mcg/actuation nasal spray,suspension amlodipine 2.5 mg tablet 2.5 mg PO QAM #90 tabs 12/06/22 03/11/23 Rx acetaminophen 500 mg tablet 500 mg PO DIRECTED PRN Pain 03/01/23 03/11/23 History (Tylenol Extra Strength) albuterol sulfate 90 mcg/actuation 2 puff inhalation QID PRN 03/01/23 03/11/23 History aerosol inhaler (ProAir HFA) Shortness Of Breath Or Wheezing famotidine 20 mg tablet 20 mg PO BID 03/01/23 03/11/23 History meclizine 25 mg tablet 25 mg PO HS PRN dizzyness 03/01/23 03/11/23 History ondansetron 4 mg disintegrating 4 mg translingual Q8 PRN Nausea 03/01/23 03/11/23 History tablet trolamine salicylate 10 % topical 1 applic topical BID PRN Pain 03/01/23 03/11/23 History cream (Aspercreme) sodium chloride 1,000 mg soluble 1,000 mg PO BID 03/11/23 03/11/23 History tablet aspirin 300 mg rectal suppository 300 mg [place] DAILY #12 ea 03/31/23 Rx diclofenac sodium 1 % topical gel 2 g EXT BID #100 grams 03/31/23 Rx (Voltaren Arthritis Pain) enoxaparin 40 mg/0.4 mL 40 mg (0.4 mL) subcut QAM 30 days 03/31/23 Rx subcutaneous syringe (Lovenox) #12 mL sennosides 8.6 mg-docusate sodium 1 tab PO BID 14 days #28 tabs 03/31/23 Rx 50 mg tablet (Senokot-S) Hospital Stay Data Consultations 03/11/23 20:00 ED Decision to Admit Stat 03/16/23 10:47 Consult Neurology Routine 03/21/23 07:49 Consult Infectious Diseases Routine Diagnostic Imagining Performed Laboratory Results WBC 8.11 K/ul (4.8-10.8) 04/02/23 05:55 RBC 3.19 M/uL (4.20-5.40) L 04/02/23 05:55 Hgb 8.7 g/dl (12.0-16.0) L 04/02/23 05:55 Hct 26.8 % (37.0-47.0) L 04/02/23 05:55 MCV 84.0 fL (80.0-100.0) 04/02/23 05:55 MCH 27.3 pg (25.0-34.0) 04/02/23 05:55 MCHC 32.5 g/dL (32.0-36.0) 04/02/23 05:55 RDW Std Deviation 42.4 fL (36.4-46.3) 04/02/23 05:55 RDW Coeff of Chrissie 13.9 % (11.5-14.5) 04/02/23 05:55 Plt Count 394 K/uL (130-400) 04/02/23 05:55 MPV 10.0 fL (9.4-12.4) 04/02/23 05:55 Immature Gran % (Auto) 1.2 % 04/02/23 05:55 Neut % (Auto) 56.6 % 04/02/23 05:55 Lymph % (Auto) 18.1 % 04/02/23 05:55 [place] % (Auto) 12.8 % 04/02/23 05:55 Eos % (Auto) 10.2 % 04/02/23 05:55 Baso % (Auto) 1.1 % 04/02/23 05:55 Reticulocyte % (Auto) 0.70 % (0.50-2.00) 03/24/23 10:14 Neut # (Auto) 4.58 K/uL (1.40-6.50) 04/02/23 05:55 Lymph # (Auto) 1.47 K/uL (1.20-3.40) 04/02/23 05:55 [place] # (Auto) 1.04 K/uL (0.11-0.59) H 04/02/23 05:55 Eos # (Auto) 0.83 K/uL (0.00-0.50) H 04/02/23 05:55 Baso # (Auto) 0.09 K/uL (0.00-0.20) 04/02/23 05:55 Reticulocyte # 0.030 10^6/uL (0.020-0.100) 03/24/23 10:14 Immature Gran # (Auto) 0.10 K/uL (0.01-0.20) 04/02/23 05:55 Platelet Estimate Normal (Normal) 03/14/23 04:18 Ovalocytes 1+ 03/17/23 06:04 Echinocytes 1+ 03/17/23 06:04 ESR 85 mm/hr (0-30) H 03/31/23 05:27 PT 10.8 Seconds (9.0-12.0) 03/11/23 19:07 INR 1.0 (0.9-1.1) 03/11/23 19:07 D-Dimer 5210 ug/L FEU (0-500) H* 03/31/23 15:53 ABG pH 7.48 (7.35-7.45) H 03/15/23 21:18 ABG pCO2 30 mmHg (35-46) L 03/15/23 21:18 ABG pO2 72 mmHg (80-95) L 03/15/23 21:18 ABG HCO3 22 mmol/L (19-24) 03/15/23 21:18 ABG O2 Saturation 97.0 % (90-95) H 03/15/23 21:18 ABG Base Excess -0.3 mEq/L (-9-1.8) 03/15/23 21:18 Damon Test Pos (Pos) 03/15/23 21:18 Oxygen Given ROOM AIR 03/15/23 21:18 Sodium 139 mmol/L (136-145) 04/02/23 05:55 Potassium 4.1 mmol/L (3.5-5.1) 04/02/23 05:55 Chloride 108 mmol/L (98-107) H 04/02/23 05:55 Carbon Dioxide 24 mmol/L (21-32) 04/02/23 05:55 Anion Gap 7 (3-11) 04/02/23 05:55 BUN 17 mg/dl (6-23) 04/02/23 05:55 Creatinine 0.54 mg/dl (0.6-1.2) L 04/02/23 05:55 Est Cr Clr Drug Dosing 95.5 ml/min 04/02/23 05:55 Est GFR ( Amer) 106.2 ml/min 04/02/23 05:55 Est GFR (Non-Af Amer) 91.7 ml/min 04/02/23 05:55 BUN/Creatinine Ratio 31.5 (10-20) H 04/02/23 05:55 Glucose 107 mg/dl (70-99(Fasting)) H 04/02/23 05:55 POC Glucose 109 mg/dl (70-99) H 04/02/23 12:10 Calcium 8.6 mg/dl (8.6-10.3) 04/02/23 05:55 Phosphorus 3.3 mg/dl (2.5-4.9) 04/02/23 05:55 Magnesium 1.8 mg/dl (1.7-2.4) 04/02/23 05:55 Ferritin 97.4 ng/ml (8-388) 03/20/23 14:16 Total Bilirubin 0.4 mg/dl (0.2-1.0) 04/02/23 05:55 AST 21 U/L (13-39) 04/02/23 05:55 ALT 20 U/L (7-52) 03/24/23 10:14 Alkaline Phosphatase 60 U/L (34-104) 04/02/23 05:55 Ammonia 40.0 umol/L (18-72) 03/16/23 06:16 Lactate Dehydrogenase 230 U/L (86-244) 03/24/23 10:14 Total Creatine Kinase 40 U/L (26-192) 03/20/23 14:16 Troponin I High Sens 2.6 pg/ml (0-14) 03/11/23 16:30 C-Reactive Protein 23.37 mg/dl (0-0.5) H 03/31/23 05:27 Total Protein 5.9 gm/dl (6.0-8.3) L 03/24/23 10:14 Albumin 2.6 gm/dl (3.4-5.0) L 03/24/23 10:14 Globulin 3.3 gm/dl (2.5-4.0) 03/24/23 10:14 Albumin/Globulin Ratio 0.8 (0.9-2) L 03/24/23 10:14 Triglycerides 46 mg/dl (0-150) 03/30/23 05:56 Procalcitonin 0.19 ng/ml (0-0.5) 03/24/23 20:30 TSH 2.328 uIu/ml (0.300-4.500) 03/15/23 15:38 Random Cortisol 4.22 mcg/dl 03/16/23 06:16 Cortisol AM Sample 18.48 mcg/dl (6.2-22.6) 03/19/23 08:29 Urine Color Yellow 03/30/23 14:00 Urine Appearance Clear (Clear) 03/30/23 14:00 Urine pH 5.5 (4.5-7.5) 03/30/23 14:00 Ur Specific [place] 1.020 (1.000-1.030) 03/30/23 14:00 Urine Protein 1+ (Negative) H 03/30/23 14:00 Urine Glucose (UA) Negative (Negative) 03/30/23 14:00 Urine Ketones Negative (Negative) 03/30/23 14:00 Urine Blood Trace (Negative) H 03/30/23 14:00 Urine Nitrite Negative (Negative) 03/30/23 14:00 Urine Bilirubin Negative (Negative) 03/30/23 14:00 Urine Urobilinogen Negative (Negative) 03/30/23 14:00 Ur Leukocyte Esterase Negative (Negative) 03/30/23 14:00 Urine WBC (Auto) 1-5 /hpf (0-5) 03/30/23 14:00 Urine RBC (Auto) 0-4 /hpf (0-4) 03/30/23 14:00 U Hyaline Cast (Auto) 1-5 /lpf (0-5) 03/30/23 14:00 U Epithel Cells (Auto) 10-20 /lpf (0-5) H 03/30/23 14:00 Urine Bacteria (Auto) 1+ (Negative) H 03/30/23 14:00 Ur Renal Epithelial Cell Not Reportable 03/24/23 Unknown Amorphous Sediment Present (None Prsent) A 03/16/23 Unknown Urine Yeast Not Reportable 03/30/23 14:00 Fld Lyme DNA (PCR) Not Detected (Not Detected) 03/21/23 11:55 Fluid Comment 03/21/23 11:55 CSF Appearance Clear 03/21/23 11:55 CSF Color Colorless 03/21/23 11:55 Xanthrochromic No xanthochromia 03/21/23 11:55 CSF WBC 6 (0-5) H 03/21/23 11:55 CSF RBC 1 (0-) 03/21/23 11:55 CSF Cell Count Tube # 3 03/21/23 11:55 CSF Chemistry Tube # 1 03/21/23 11:55 CSF Glucose 62 mg/dl (40-70) 03/21/23 11:55 CSF LDH 12 U/L (<=25) 03/21/23 11:55 CSF Lactate 14.5 mg/dL (10-22) 03/21/23 11:55 CSF Total Protein 41.1 mg/dl (15-45) 03/21/23 11:55 CSF Total Protein Cancelled 03/21/23 11:55 CSF Albumin 15.5 mg/dL (8.0-42.0) 03/21/23 12:14 CSF IgG 1.8 mg/dL (0.8-7.7) 03/21/23 12:14 CSF IgG Index 0.49 (<0.70) 03/21/23 12:14 CSF IgG Synthesis Rate -0.8 mg/24 h (-9.9-3.3) 03/21/23 12:14 CSF Myelin Basic Protein <2.0 mcg/L (<=4.0) 03/21/23 12:14 CSF IgG Oligoclonal Bnd Absent (Absent) 03/21/23 12:14 CSF VDRL TNP 03/21/23 11:55 CSF Lyme IgG (Immblot) NO BANDS DETECTED 03/21/23 12:14 CSF Lyme IgG Band Pattern DNR 03/21/23 12:14 CSF Lyme IgM (Immblot) NO BANDS DETECTED 03/21/23 12:14 CSF Lyme IgM Band Pattern DNR 03/21/23 12:14 CSF C.neoform/gat PCR Not Detected (NotDetected) 03/21/23 11:55 CSF CMV DNA (PCR) Not Detected (NotDetected) 03/21/23 11:55 CSF Enterovirus (PCR) Not Detected (NotDetected) 03/21/23 11:55 CSF E. coli K1 (PCR) Not Detected (NotDetected) 03/21/23 11:55 CSF H. influenzae (PCR) Not Detected (NotDetected) 03/21/23 11:55 CSF HSV I (PCR) Not Detected (NotDetected) 03/21/23 11:55 CSF HSV II (PCR) Not Detected (NotDetected) 03/21/23 11:55 CSF HHV 6 (PCR) Not Detected (NotDetected) 03/21/23 11:55 CSF L.monocytogenes PCR Not Detected (NotDetected) 03/21/23 11:55 CSF N. meningitidis PCR Not Detected (NotDetected) 03/21/23 11:55 CSF Parechovirus (PCR) Not Detected (NotDetected) 03/21/23 11:55 CSF S. agalactiae (PCR) Not Detected (NotDetected) 03/21/23 11:55 CSF S. pneumoniae (PCR) Not Detected (NotDetected) 03/21/23 11:55 CSF VZV DNA (PCR) Not Detected (NotDetected) 03/21/23 11:55 CSF West Nile IgM Ab Cancelled 03/21/23 11:55 CSF West Nile RNA TNP 03/21/23 Unknown Nasal Screen MRSA (PCR) Positive (Negative) A 03/21/23 Unknown Stl C. diff Tox B Gene Negative Cdiff Gene (Neg) 03/25/23 Unknown Random Vancomycin 16.0 mcg/ml (10-20) 03/31/23 05:25 IgG 452 mg/dL (600-1540) L 03/21/23 12:14 Albumin (DIANA) 1.9 g/dL (3.6-5.1) L 03/21/23 12:14 Striated Muscle Ab Ttr TNP 03/24/23 14:34 Striated Muscle Ab NEGATIVE (NEGATIVE) 03/24/23 14:34 Acetylchol Rcpt Bind Ab <0.30 nmol/L 03/24/23 14:34 RPR Nonreactive (Nonreactive) 03/23/23 06:20 Adenovirus (PCR) Not Detected (NotDetected) 03/30/23 13:50 Anaplasma Smear Cancelled 03/24/23 10:14 Anaplasma Smear See Comment 03/24/23 10:14 A. phagocytophilum DNA Negative (Negative) 03/24/23 14:31 Babesia Smear Cancelled 03/24/23 10:14 Babesia Smear See Comment 03/24/23 10:14 Babesia microti DNA PCR Not Detected (Not Detected) 03/24/23 14:19 B. pertussis DNA (PCR) Not Detected (NotDetected) 03/30/23 13:50 B.parapertussis DNA PCR Not Detected (NotDetected) 03/30/23 13:50 Lyme Specimen Source CSF 03/21/23 11:55 Lyme Disease IgG Ab Negative (Negative) 03/24/23 20:30 Lyme Disease IgM Ab Negative (Negative) 03/24/23 20:30 Lyme DNA Comment see note 03/21/23 11:55 C. pneumoniae DNA (PCR) Not Detected (NotDetected) 03/30/23 13:50 Coronavirus OC43 (PCR) Not Detected (NotDetected) 03/30/23 13:50 Coronavirus HKU1 (PCR) Not Detected (NotDetected) 03/30/23 13:50 Coronavirus 229E (PCR) Not Detected (NotDetected) 03/30/23 13:50 SARS-CoV-2 (PCR) Not Detected (NotDetected) 03/30/23 13:50 Coronavirus NL63 (PCR) Not Detected (NotDetected) 03/30/23 13:50 Cryptococcus Source CEREBROSPINAL FLUID 03/21/23 12:14 Cryptococcal Ag (Latex) TNP 03/21/23 12:14 E.chaffeensis DNA (PCR) Negative (Negative) 03/24/23 14:31 West Nile Virus Source CEREBROSPINAL FLUID 03/21/23 Unknown EBV Source Whole Blood 03/21/23 12:14 EBV DNA, Quant Not Detected Log cps/mL 03/21/23 12:14 EBV DNA (PCR) Not Detected copies/mL 03/21/23 12:14 HIV (1&2) Ag & Ab Conf NON-REACTIVE (NON-REACTIVE) 03/23/23 06:20 Human Metapneumovir PCR Not Detected (NotDetected) 03/30/23 13:50 Influenza Type A (PCR) Not Detected (NotDetected) 03/30/23 13:50 Influenza Type B (PCR) Not Detected (NotDetected) 03/30/23 13:50 Urine Legionella Ag SEE NOTE 03/23/23 01:43 M. pneumoniae (PCR) Not Detected (NotDetected) 03/30/23 13:50 Parainfluenza 1 (PCR) Not Detected (NotDetected) 03/30/23 13:50 Parainfluenza 2 (PCR) Not Detected (NotDetected) 03/30/23 13:50 Parainfluenza 3 (PCR) Not Detected (NotDetected) 03/30/23 13:50 Parainfluenza 4 (PCR) Not Detected (NotDetected) 03/30/23 13:50 Q Fever Phase I IgG Ab NEGATIVE 03/24/23 14:19 Q Fever Phase I IgM Ab NEGATIVE 03/24/23 14:19 Q Fever Phase II IgG Ab NEGATIVE 03/24/23 14:19 Q Fever Phase II IgM Ab NEGATIVE 03/24/23 14:19 RSV (PCR) Not Detected (NotDetected) 03/30/23 13:50 Entero/Rhino (PCR) Not Detected (NotDetected) 03/30/23 13:50 Rickettsia IgG Ab NOT DETECTED 03/24/23 14:19 Rickettsia IgM Ab NOT DETECTED 03/24/23 14:19 Typhus Fever IgG Ab NOT DETECTED 03/24/23 14:19 Typhus Fever IgM Ab NOT DETECTED 03/24/23 14:[address] 03/11/23 18:36 CT SCAN OF THE BRAIN WITHOUT IV CONTRAST CLINICAL HISTORY: Generalized weakness. COMPARISON STUDY: CT of the brain dated 03/01/2023. TECHNIQUE: Unenhanced axial CT scan of the brain is performed from the vertex to the skull base. A dose lowering technique was utilized adhering to the principles of ALARA. CT DOSE: 547.75 mGy.cm FINDINGS: Brain parenchyma: There is age-related involutional change noting moderate subcortical and periventricular microangiopathic disease. There is no hemorrhage, mass effect, or evidence of acute territorial ischemia by CT criteria. Dave-white matter differentiation is preserved. No extra-axial fluid collection is seen. Ventricles, sulci, cisterns: Prominent secondary to involutional change. Intracranial vasculature: There is atherosclerotic calcification of the cavernous carotid and vertebral arteries. Calvarium: Unremarkable. Sinuses and mastoids: The visualized paranasal sinuses are clear. The mastoid air cells are well pneumatized. Orbits: The bony orbits are grossly intact. There are bilateral ocular lens implants. IMPRESSION: There is no hemorrhage, mass effect, or evidence of acute territorial ischemia by CT criteria. ACT 112: Negative or not required by law. Electronically signed by: Deon Houston M.D. 03/11/2023 7:01 PM Duplex Scan Upper Extremity Artery 03/12/23 06:55 RIGHT UPPER EXTREMITY ARTERIAL DOPPLER ULTRASOUND CLINICAL HISTORY: Right forearm swollen and severe pain. COMPARISON STUDY: No previous studies for comparison. TECHNIQUE: Sonography of the arterial system of the right upper extremity was performed. FINDINGS: Right subclavian, axillary, brachial, radial and ulnar arteries were patent. Biphasic waveforms were noted. No elevated velocities were noted. No vessel occlusion was identified. IMPRESSION: No stenoses within the right upper extremity. Patent vessels. ACT 112: Negative or not required by law. Electronically signed by: Dewayne Cuba M.D. 03/12/2023 8:49 AM Lumbar Puncture 03/21/23 07:45 Lumbar puncture under fluoroscopy INDICATION: Weakness rule out Guillain-Bouton PROCEDURE: Procedure and risks were explained. Informed consent was obtained over the phone. A final timeout was completed. The patient was placed prone on the fluoroscopic examination table. The lower lumbar region was prepped and draped in sterile fashion. 1% lidocaine was utilized for skin anesthesia. Utilizing fluoroscopic guidance, a 22-gauge spinal needle was advanced into the intrathecal space at the L2-3 disc space level. 2 permanent spot images were obtained. Approximately 8 mL of clear CSF fluid was removed and sent to lab for analysis. The needle was removed and Band-Aid applied. The patient tolerated the procedure well. Vital signs will be monitored post procedure. Total fluoroscopy time 0.55 minutes. DAP is 11.4 mcGy/m2. IMPRESSION: Lumbar puncture as above. Performed, dictated, and signed by Richard Trevizo PA-C; to be co-signed by Dr. Paul Wallace. Electronically signed by: Paul Wallace M.D. 03/22/2023 9:09 AM Brain MRI 03/22/23 15:00 Exam(s): MRI HEAD Without Contrast EXAM: MR Head Without Intravenous Contrast CLINICAL HISTORY: Reason for exam: generalized weakness. TECHNIQUE: Magnetic resonance images of the head/brain without intravenous contrast in multiple planes. Mild motion artifact. COMPARISON: Head CT 03/11/23 and MRI brain 02/07/11. FINDINGS: Brain: No mass effect or acute infarct. No acute hemorrhage. Mild atrophy and chronic white matter disease. Ventricles: No hydrocephalus or midline shift. Bones/joints: No acute bony lesion. Soft tissues: No scalp hematoma. Sinuses: Clear. Mastoid air cells: No mastoid effusion. IMPRESSION: 1. Mild age-related findings. 2. No acute infarct, bleed, or acute intracranial abnormality. Electronically signed by: Capri Bingham M.D. 03/22/23 22:30 PM Chest X-Ray 03/30/23 10:58 XR chest 1V portable HISTORY: 77 years-old Female fever, r/o pneumonia acute fever COMPARISON: 03/24/2023 TECHNIQUE: AP view of the chest FINDINGS: Cardiomediastinal and hilar silhouettes are within normal limits. There is no pneumothorax, pleural effusion or lobar airspace consolidation. Subtle ill- defined lateral left lung base opacities. The bones appear grossly intact. IMPRESSION: Subtle ill-defined left lateral lung base opacities may be artifactual or atelectatic. A mild pneumonia considered less likely. ACT 112: Negative or not required by law. The above report was generated using voice recognition software. It may contain grammatical, syntax or spelling errors. Electronically signed by: Herbie Benitez M.D. 03/30/2023 12:07 PM Abdomen/Pelvis CT 03/31/23 09:48 CT OF THE ABDOMEN AND PELVIS WITHOUT CONTRAST CLINICAL HISTORY: fever, r/o intraabdominal infection COMPARISON STUDY: CT of the abdomen and pelvis March 22, 2023. TECHNIQUE: Axial images of the abdomen and pelvis were obtained without IV contrast. Images were reviewed in the axial, sagittal, and coronal planes. Automated exposure control was utilized for the study. A dose lowering technique was utilized adhering to the principles of ALARA. FINDINGS: Incidental note is made of nonspecific left upper arm fluid and stranding, partially imaged on this exam. There is a trace left pleural effusion. No pneumatosis, free air or portal venous gas is present. There are no renal, ureteral or bladder calculi. There is no hydronephrosis. A Posada balloon and gas within the bladder present. There is mild symmetric bilateral perinephric stranding. This is unchanged. Unenhanced images of the liver, spleen, adrenal glands and pancreas are unremarkable. Gallbladder slightly distended. This is unchanged. There is no evidence for a bowel obstruction. The appendix is normal. No bowel wall thickening is identified on unenhanced exam. There is no lymphadenopathy. No fluid collections are present. The amount of stool within the rectum has decreased since prior CT. No acute fractures or suspicious lesions within the visualized skeletal structures are present. IMPRESSION: 1. No acute process within the abdomen or pelvis on unenhanced exam. 2. Nonspecific mild bilateral perinephric infiltration, unchanged since prior CT. 3. Asymmetric left upper extremity edema/fluid, a nonspecific finding, partially imaged on this exam. ACT 112: Negative or not required by law. Electronically signed by: Dewayne Cuba M.D. 03/31/2023 11:09 AM Venous Doppler Study 03/31/23 15:19 Exam(s): US VENOUS BILATERAL LOWER EXTREMITIES EXAM: US Duplex Bilateral Lower Extremities Veins CLINICAL HISTORY: Reason for exam: r/o DVT. TECHNIQUE: Real-time duplex ultrasound scan of the bilateral lower extremity veins integrating B-mode two-dimensional vascular structure, Doppler spectral analysis, color flow Doppler imaging and compression. COMPARISON: No relevant prior studies available. FINDINGS: Right deep veins: Unremarkable. No DVT in the right common femoral, femoral, proximal deep femoral or popliteal veins. The veins demonstrate normal color flow, are normally compressible, with normal phasic flow and/or augmentation response. Right superficial veins: Unremarkable. No thrombus in the visualized right great saphenous vein. Left deep veins: Patient unable to tolerate compression of the LEFT distal femoral vein. LEFT posterior tibial vein not visualized. No DVT in the left common femoral, femoral, proximal deep femoral or popliteal veins. The veins demonstrate normal color flow, are normally compressible, with normal phasic flow and/or augmentation response. Left superficial veins: Unremarkable. No thrombus in the visualized left great saphenous vein. Soft tissues: No acute findings. No popliteal cyst. Other findings: Fluid collection in the LEFT anterior knee measures 8 cm. IMPRESSION: No DVT of the bilateral lower extremities. Fluid collection in the LEFT anterior knee measures 8 cm. Electronically signed by: Ever Rubin MD 03/31/23 21:47 PM Cervical Spine MRI 03/31/23 15:21 CLINICAL HISTORY: ff up cervical spine edema TECHNIQUE: MRI of the cervical spine is performed utilizing various T1 and T2 sequences in the axial and sagittal planes. IV contrast was not administered for this examination. Comparison: Comparison is made to MRI cervical spine 03/22/2023 FINDINGS: C2-C3: Broad-based posterior disc bulge resulting in mild bilateral neural foraminal stenosis. C3-C4: Broad-based posterior disc bulge and facet arthropathy resulting in moderate bilateral neural foraminal stenosis and mild canal stenosis. C4-C5: Broad-based posterior disc bulge and facet arthropathy result in moderate to severe bilateral neuroforaminal stenosis and moderate canal stenosis, AP diameter 8 mm. C5-C6: Broad-based posterior disc bulge and facet arthropathy result in severe bilateral neural foraminal stenosis with moderate canal stenosis, AP diameter 7 mm.. C6-C7: Broad-based posterior disc bulge and facet arthropathy result in severe bilateral neuroforaminal stenosis with moderate canal stenosis, AP diameter 7 mm. C7-T1: Unremarkable. The spinal ligaments are intact, without evidence of disruption or abnormal signal intensity. The spinal cord is normal in signal intensity and there is no evidence of cord edema. There is no evidence of an extradural, intradural, extramedullary or intramedullary lesion. Soft tissue edema is noted. This is minimally decreased in extent to prior exam. Visualized brain parenchyma is normal. IMPRESSION: Multilevel degenerative changes are again seen. Redemonstration of soft tissue edema in the paravertebral region, slightly decreased in conspicuity from prior exam. ACT 112: Negative or not required by law. Electronically signed by: Paul Wallace M.D. 03/31/2023 6:16 PM Chest CTA 03/31/23 18:31 Exam(s): CTA CHEST IV Amt: 117 cc otpi 320 EXAM: CT Angiography Chest With Intravenous Contrast CLINICAL HISTORY: Reason for exam: PE. TECHNIQUE: Axial computed tomographic angiography images of the chest with intravenous contrast. CTDI is 22.86 mGy and DLP is 698.09 mGy-cm. Automated exposure control was utilized for the study. A dose lowering technique was utilized adhering to the principles of ALARA. MIP reconstructed images were created and reviewed. COMPARISON: No relevant prior studies available. FINDINGS: Pulmonary arteries: Unremarkable. No acute pulmonary embolism. Aorta: Atherosclerotic changes of the aorta. No thoracic aortic aneurysm. Lungs: Atelectasis at the lung bases. Trace LEFT pleural effusion. No mass. Pleural space: See above. Heart: Mild cardiomegaly. No evidence of RV dysfunction. No pericardial effusion. Bones/joints: Degenerative changes of the spine. No acute fracture. No dislocation. Soft tissues: Unremarkable. Lymph nodes: Unremarkable. No enlarged lymph nodes. IMPRESSION: 1. No acute pulmonary embolism. 2. Atelectasis at the lung bases. Trace LEFT pleural effusion. Electronically signed by: Ever Rubin MD 03/31/23 21:42 PM Pending Results Patient Have Any Pending Studies at Discharge: No Discharge Instructions Given to Patient (Per Discharging Provider) Please refer to accompanying hospital discharge summary. Total Time Total Time Spent Total Time Spent (In Minutes): >30 minutes
[2023-04-02] MEDS ORDERED: PERIPHERAL TPN IV SCH (16:00)
[2023-04-02] MEDS ORDERED: CLINOLIPID 20% IV FAT EMULSION 250 ML IV SCH (16:00)
[2023-04-02] MEDS ORDERED: [UNRECOGNIZED DRUG - OTHER] IV SCH (16:00)
== END 2023-04-02 17:51 | disposition short-term general hospital (02) | DRG 178 ==
LOC: ED 15:49 → SUATTDRO 22:33 → EDINP 22:33 → 3E 23:31 → 2E 03-22 21:10 → 2N 03-25 23:02

== ENCOUNTER 2024-06-18 12:37 | Inpatient (IN) ==
--- NOTE | 2024-06-18 13:15 | Emergency Department Note ---
Impression & Plan Generalized weakness, Complicated urinary tract infection, Acute confusion, Fall from standing ED Provider Note HISTORY OF PRESENT ILLNESS: Patient is a 78-year-old female presenting with confusion and after a ground- level fall. provides most of history, as patient is a poor historian. reports that the patient has been having intermittent episodes of confusion for the last week. She reports that last week the patient slipped and fell and struck her head. She is on aspirin. He reports that she had slipped and fallen at night but is able to get up and had been doing well and did not have any complaints so they did not come to the ER. He states that progressively over the last week the patient has had increasing gait instability and become weaker and weaker. Tetanus is up-to-date. Patient reportedly slipped and fell in the shower this afternoon and struck her elbow and the right side of her head. She denies loss of consciousness. Patient denies any chest pain, shortness of breath or lightheadedness prior to the fall in the shower. She reports she just lost her footing. ROS: as above PHYSICAL EXAM: Constitutional: Patient appears in no acute distress. HENT: Head: Normocephalic. Hematoma to right posterior scalp. Eyes: EOMI, PERRL Mouth/Throat: Mucous membranes moist. Neck: Trachea midline. Neck supple. No midline cervical spine tenderness to palpation Cardiovascular: RRR, No murmurs, rubs or gallops. Intact distal pulses. Pulmonary/Chest: No respiratory distress. Breath sounds clear and equal bilaterally. No wheezes or rales. No chest wall tenderness to palpation. Abdominal: Abdomen soft, no tenderness, rebound or guarding. Back: No midline spinal tenderness, no paraspinal tenderness, no CVA tenderness. Patient is able to straight leg raise bilaterally Musculoskeletal: No edema, tenderness or deformity noted. Skin: Warm and dry. No rash, erythema, pallor or cyanosis. Skin tear to the right elbow. Psychiatric: Appropriate mood and affect for situation. Neurological: Alert and keenly responsive. CN II-XII grossly intact, moving all extremities equally and fully. MDM: - Vitals signs showed hypertension and tachycardia - History obtained via patient and patient's , given patient's confusion. History as above. - Chronic conditions affecting care: HTN; Factor V Leiden Mutation; DVT; CVA - Differential diagnoses include, but are not limited to: skull fracture; CVA; intracranial hemorrhage; ACS; pneumonia; UTI; viral syndrome - Order placed for continuous cardiac monitoring. At this time, monitor showed rate of 88 bpm with normal sinus rhythm, per my interpretation. - External medical records reviewed. Family practice office visit note dated 04/27/2021 eval was reviewed. Patient was seen in clinic for a follow-up. - EKG image interpreted by myself showed normal sinus rhythm. Rate 86 bpm. QT 338. No acute ischemic changes. - Laboratory workup interpreted by myself showed leukocytosis (WBC 12.14); normal PT/INR; stable electrolytes; normal troponin; normal TSH - CXR image reviewed by myself showed a right lower lobe opacity, per my interpretation. - CT head wo contrast negative for acute pathology - CT cervical spine wo contrast negative for acute injury - UA obtained via straight cath showed evidence of infection. On review of patient's chart, she grew ESBL in September 2023. Ertapenem was ordered. - Patient's weakness and confusion likely secondary to her UTI - Discussion was had with catalytic case operator about patient's case and need for admission - Hospitalist, Dr. Sanchez, consulted for admission - [facility] for further evaluation and management. 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) Encounter for pre-operative examination Hyponatremia (Chronic) Hypertension (Chronic) Nodule of esophagus Right hand pain Ganglion cyst of tendon sheath of right hand Generalized weakness (Acute) Fall (Acute) DVT prophylaxis Fever after vaccination (Acute) Generalized weakness (Acute) Acute dehydration (Acute) Status post administration of all doses of COVID-19 vaccine series (Acute) Uncontrolled hypertension Encounter for pre-operative examination Chronic diarrhea Pes anserinus bursitis of left knee Lumbar facet joint syndrome Vitamin D deficiency Chronic pain of left knee (Chronic) GERD (gastroesophageal reflux disease) DVT (deep venous thrombosis) LEFT LEG (WAS TAKING WARFARIN 2011) History of surgery on arm RT ARM S/P wrist surgery LEFT History of cataract surgery RT/LEFT Spinal stenosis Medical History Asthma Hyponatremia Diarrhea Transient ischemic attack (TIA) Hyperlipidemia Osteoarthritis History of colitis Factor V Leiden HTN (hypertension) Surgical History History of bilateral tubal ligation History of esophagogastroduodenoscopy (EGD) History of colonoscopy History of tooth extraction Family History Mother Family history of diabetes mellitus Aunt Family hx of colon cancer Other No family history of adverse response to anesthesia Social History Smoking Status: Former smoker Second Hand Exposure: No; Do You Dip or Chew Tobacco: No; Hx Alcohol Use: No Hx Substance Use: No Preferred Language: Kiswahili Communication Ability: Effective Visual Impairment: No Limitations Hearing 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: Normal 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 Beliefs That Will Affect Care: None marital status: Current Living Situation: Spouse Current Living Situation Comment: house current occupational status: retired Feels Safe at Home: Yes Assistive Devices: Cane Allergies Allergies Allergy/AdvReac Type Severity Reaction Status Date / Time indomethacin Allergy Intermediate "FEEL Verified 03/11/23 19:19 STRANGE AND OUT OF IT" adhesive Allergy Mild RASH WITH Verified 03/11/23 19:19 EXTENDED USE bacitracin Allergy Mild RASH Verified 03/11/23 19:19 latex Allergy Mild RASH WITH Verified 03/11/23 19:19 LONGER EXPOSURE neomycin Allergy Mild RASH Verified 03/11/23 19:19 polymyxin B Allergy Mild RASH Verified 03/11/23 19:19 Sulfa (Sulfonamide Allergy Mild RASH Verified 03/11/23 19:19 Antibiotics) Home Meds Home Medications Medication Instructions Recorded Confirmed aspirin 325 mg tablet 325 mg PO QAM 05/23/18 06/18/24 calcium 600 mg (as 1 cap PO QDL 05/23/18 06/18/24 carbonate)-vitamin D3 62.5 mcg (2,500 unit) capsule esomeprazole magnesium 40 mg 40 mg PO DAILYBB 05/23/18 06/18/24 capsule,delayed release (Nexium) ipratropium bromide 21 mcg (0.03 1 sprays intranasal DAILY 05/23/18 06/18/24 %) nasal spray montelukast 10 mg tablet 10 mg PO HS 05/23/18 06/18/24 (Singulair) multivitamin 1 tab PO QDL 05/23/18 06/18/24 vitamin E 268 mg (400 unit) capsule 400 unit PO QDL 01/26/19 06/18/24 calcium carbonate (Tums Ultra) 400 mg PO DIRECTED PRN Gi Upset 05/10/19 06/18/24 fluticasone propionate 50 2 spray intranasal QAM 07/29/20 06/18/24 mcg/actuation nasal spray,suspension albuterol sulfate 90 mcg/actuation 2 puff inhalation QID PRN 03/01/23 06/18/24 aerosol inhaler (ProAir HFA) Shortness Of Breath Or Wheezing famotidine 20 mg tablet 20 mg PO HS 03/01/23 06/18/24 meclizine 25 mg tablet 25 mg PO HS PRN Dizziness 03/01/23 06/18/24 trolamine salicylate 10 % topical 1 applic topical BID PRN Pain 03/01/23 06/18/24 cream (Aspercreme) sodium chloride 1,000 mg soluble 1,000 mg PO DAILY 03/11/23 06/18/24 tablet atorvastatin 40 mg tablet 40 mg PO QAM 06/18/24 06/18/24 levothyroxine 75 mcg tablet 75 mcg PO QAM 06/18/24 06/18/24 (Synthroid) vitamin B complex 1 tab PO QAM 06/18/24 06/18/24 Previous Rx's Medication Instructions Recorded amlodipine 2.5 mg tablet 2.5 mg PO QAM #90 tabs 12/06/22 diclofenac sodium 1 % topical gel 2 g EXT BID #100 grams 03/31/23 (Voltaren Arthritis Pain) Results & Data (ED) Vital Signs Vital Signs - 24 hr 06/18/24 12:45 06/18/24 12:56 06/18/24 13:28 Temperature 36.9 C Temperature Source Oral Pulse Rate 88 88 Pulse Rate [Apical] 98 H Pulse Rate from SpO2 Sensor 88 Pulse Rhythm Regular Pulse Rhythm [Apical] Regular Pulse Strength Normal Pulse Strength [Apical] Normal Respiratory Rate 22 20 18 Respiratory Effort / Characteristics Non-Labored Spontaneous Non-Labored Spontaneous Respiratory Depth Normal Normal Respiratory Pattern Regular Regular Blood Pressure 104/72 104/72 Blood Pressure [Left Arm] Blood Pressure [Right Arm] 178/94 H Blood Pressure Mean 82 82 Blood Pressure Mean [Left Arm] Blood Pressure Mean [Right Arm] 122 Blood Pressure Position Semi-fowlers Blood Pressure Position [Right Arm] Lying Pulse Oximetry 97 98 94 Oxygen Delivery Method Room Air Room Air Room Air Sepsis Recent Fever Within 48 Hours No Sepsis New/Unexplained Change in Mental Status No Sepsis Action Taken by Nursing No Action Required 06/18/24 13:28 06/18/24 13:34 06/18/24 13:54 Temperature Temperature Source Pulse Rate 98 H 88 92 H Pulse Rate [Apical] Pulse Rate from SpO2 Sensor 92 H Pulse Rhythm Regular Pulse Rhythm [Apical] Pulse Strength Pulse Strength [Apical] Respiratory Rate 18 24 Respiratory Effort / Characteristics Respiratory Depth Respiratory Pattern Blood Pressure 137/93 Blood Pressure [Left Arm] Blood Pressure [Right Arm] Blood Pressure Mean 107 Blood Pressure Mean [Left Arm] Blood Pressure Mean [Right Arm] Blood Pressure Position Blood Pressure Position [Right Arm] Pulse Oximetry 99 97 Oxygen Delivery Method Room Air Room Air Sepsis Recent Fever Within 48 Hours Sepsis New/Unexplained Change in Mental Status Sepsis Action Taken by Nursing 06/18/24 15:25 06/18/24 15:30 06/18/24 15:33 Temperature Temperature Source Pulse Rate 86 Pulse Rate [Apical] 98 H Pulse Rate from SpO2 Sensor Pulse Rhythm Pulse Rhythm [Apical] Pulse Strength Pulse Strength [Apical] Respiratory Rate 20 18 Respiratory Effort / Characteristics Non-Labored Spontaneous Respiratory Depth Normal Respiratory Pattern Regular Blood Pressure 136/74 Blood Pressure [Left Arm] 162/74 H Blood Pressure [Right Arm] Blood Pressure Mean 123 Blood Pressure Mean [Left Arm] 103 Blood Pressure Mean [Right Arm] Blood Pressure Position Blood Pressure Position [Right Arm] Pulse Oximetry 99 94 Oxygen Delivery Method Room Air Room Air Sepsis Recent Fever Within 48 Hours Sepsis New/Unexplained Change in Mental Status Sepsis Action Taken by Nursing 06/18/24 15:42 Temperature Temperature Source Pulse Rate 87 Pulse Rate [Apical] Pulse Rate from SpO2 Sensor Pulse Rhythm Pulse Rhythm [Apical] Pulse Strength Pulse Strength [Apical] Respiratory Rate 22 Respiratory Effort / Characteristics Respiratory Depth Respiratory Pattern Blood Pressure Blood Pressure [Left Arm] Blood Pressure [Right Arm] Blood Pressure Mean Blood Pressure Mean [Left Arm] Blood Pressure Mean [Right Arm] Blood Pressure Position Blood Pressure Position [Right Arm] Pulse Oximetry 95 Oxygen Delivery Method Room Air Sepsis Recent Fever Within 48 Hours Sepsis New/Unexplained Change in Mental Status Sepsis Action Taken by Nursing Laboratory Data 06/18/24 14:17 06/18/24 14:17 Lab Results 06/18/24 06/18/24 Range/Units 14:05 14:17 WBC 12.14 H (4.8-10.8) K/ul RBC 4.68 (4.20-5.40) M/uL Hgb 14.0 (12.0-16.0) g/dl Hct 42.1 (37.0-47.0) % MCV 90.0 (80.0-100.0) fL MCH 29.9 (25.0-34.0) pg MCHC 33.3 (32.0-36.0) g/dL RDW Std Deviation 42.4 (36.4-46.3) fL RDW Coeff of Chrissie 12.7 (11.5-14.5) % Plt Count 311 (130-400) K/uL MPV 9.9 (9.4-12.4) fL Immature Gran % (Auto) 0.7 % Neut % (Auto) 72.6 % Lymph % (Auto) 13.3 % [place] % (Auto) 11.0 % Eos % (Auto) 1.9 % Baso % (Auto) 0.5 % Neut # (Auto) 8.83 H (1.40-6.50) K/uL Lymph # (Auto) 1.61 (1.20-3.40) K/uL [place] # (Auto) 1.33 H (0.11-0.59) K/uL Eos # (Auto) 0.23 (0.00-0.50) K/uL Baso # (Auto) 0.06 (0.00-0.20) K/uL Immature Gran # (Auto) 0.08 (0.01-0.20) K/uL PT 10.5 (9.0-12.0) Seconds INR 1.0 (0.9-1.1) Sodium 136 (136-145) mmol/L Potassium 4.3 (3.5-5.1) mmol/L Chloride 100 (98-107) mmol/L Carbon Dioxide 29 (21-32) mmol/L Anion Gap 7 (3-11) BUN 17 (6-23) mg/dl Creatinine 0.72 (0.6-1.2) mg/dl Est Cr Clr Drug Dosing 72.1 ml/min eGFR 86.06 BUN/Creatinine Ratio 23.6 H (10-20) Glucose 94 (70-99(Fasting)) mg/dl Calcium 9.3 (8.6-10.3) mg/dl Magnesium 1.8 (1.7-2.4) mg/dl Total Bilirubin 0.8 (0.2-1.0) mg/dl AST 23 (13-39) U/L ALT 16 (7-52) U/L Alkaline Phosphatase 64 (34-104) U/L Troponin I High Sens < 2.3 (0-14) pg/ml Total Protein 7.0 (6.0-8.3) gm/dl Albumin 3.8 (3.4-5.0) gm/dl Globulin 3.2 (2.5-4.0) gm/dl Albumin/Globulin Ratio 1.2 (0.9-2) TSH 1.689 (0.300-4.500) uIu/ml Urine Color Dark Yellow Urine Appearance Cloudy A (Clear) Urine pH 8.5 H (4.5-7.5) Ur Specific [place] 1.016 (1.000-1.030) Urine Protein Trace H (Negative) Urine Glucose (UA) Negative (Negative) Urine Ketones Trace H (Negative) Urine Blood Negative (Negative) Urine Nitrite Negative (Negative) Urine Bilirubin Negative (Negative) Urine Urobilinogen Negative (Negative) Ur Leukocyte Esterase 3+ H (Negative) Urine WBC (Auto) >50 H (0-5) /hpf Urine RBC (Auto) 0-2 (0-2) /hpf U Hyaline Cast (Auto) 0-2 (0-2) /lpf U Epithel Cells (Auto) 0-2 (0-2) /hpf Urine Bacteria (Auto) 4+ H (None Seen) Administered Medications Discontinued Medications Ertapenem (Invanz 1000mg) 1,000 mg in 10 mls @ 2 mls/min IV NOW STA Stop: 06/18/24 14:42 Last Admin: 06/18/24 14:53 Dose: 2 mls/min Documented By: MSG Imaging Data Radiologist's Impression: Cervical Spine CT 06/18/24 13:14 CT cervical spine wo con CLINICAL HISTORY: 78 years-old Female with fall; confusion. Acute neck injury status post fall COMPARISON: Head CT of same day, MRI cervical spine 03/22/2023, 03/31/2023 TECHNIQUE: Multiple axial CT images of the cervical spine were obtained without contrast. A dose lowering technique was utilized adhering to the principles of ALARA. FINDINGS: Moderate to severe intervertebral disc space narrowing with spondylitic spurring posterior disc osteophyte complex lesions redemonstrated at C4-C5, C5-C6 and C6-C7. Moderate to severe multilevel facet arthropathy. No acute fracture or subluxation identified. There is moderate to severe degeneration of the right temporal mandibular joint. The cervical soft tissues appear unremarkable. No pneumothorax. Intralobular septal thickening of the lung apices. Linear subpleural opacity of the right lung apex favors scarring. Unremarkable soft tissues. IMPRESSION: No acute cervical spine fracture or subluxation. ACT 112: Negative or not required by law. The above report was generated using voice recognition software. It may contain grammatical, syntax or spelling errors. Electronically signed by: Herbie Benitez M.D. 06/18/2024 1:53 PM Chest X-Ray 06/18/24 13:14 XR chest 1V portable CLINICAL HISTORY: weakness COMPARISON STUDY: 03/30/2023 FINDINGS: Heart size and pulmonary vasculature are normal. There is interval mild opacity at the right base with blunting of the right costophrenic angle. No pneumothorax. IMPRESSION: Interval mild opacity at the right base could represent atelectasis, early pneumonia, or small right pleural effusion. ACT 112: Negative or not required by law. Electronically signed by: Andre Teran M.D. 06/18/2024 1:[address] 06/18/24 13:14 CT head/brain wo con CLINICAL HISTORY: fall; confusion. TECHNIQUE: Multiple axial CT images of the head were obtained without contrast. A dose lowering technique was utilized adhering to the principles of ALARA. CT DOSE: 1049.31 mGy.cm COMPARISON: 03/11/2023 FINDINGS: No intracranial hemorrhage seen. There is stable mild prominence of the ventricles out of proportion to the sulci, cerebral atrophy versus mild normal pressure hydrocephalus. Stable moderate chronic small vessel ischemic change. No skull fracture seen. Visualized paranasal sinuses and mastoid air cells are clear. IMPRESSION: No acute findings. ACT 112: Negative or not required by law. The above report was generated using voice recognition software. It may contain grammatical, syntax or spelling errors. Electronically signed by: Andre Teran M.D. 06/18/2024 1:44 PM Discharge Plan Visit Data Chief Complaint: Fall Stated Complaint: fall ED Provider: Melva Pan Discharge Problem: Generalized weakness, Complicated urinary tract infection, Acute confusion, Fall from standing Forms Stand Alone Forms: My [facility] Prescriptions Prescriptions: No Action aspirin 325 mg tablet 325 mg PO QAM esomeprazole magnesium [Nexium] 40 mg capsule,delayed release(DR/EC) 40 mg PO DAILYBB Hold Instructions: Resume on 05/05/23. ipratropium bromide 0.03 % spray,non-aerosol 1 sprays intranasal DAILY montelukast [Singulair] 10 mg tablet 10 mg PO HS multivitamin tablet 1 tab PO QDL calcium carbonate-vitamin D3 600 mg (1,500 mg)-2,500 unit capsule 1 cap PO QDL amlodipine 2.5 mg tablet 2.5 mg PO QAM Qty: 90 3RF calcium carbonate [Tums Ultra] 400 mg calcium (1,000 mg) Tablet,Chewable 400 mg PO DIRECTED PRN (Reason: Gi Upset) vitamin E 400 unit Capsule 400 unit PO QDL sodium chloride 1,000 mg Tablet,Soluble 1,000 mg PO DAILY diclofenac sodium [Voltaren Arthritis Pain] 1 % Gel 2 g EXT BID Qty: 100 0RF fluticasone propionate 50 mcg/actuation [place],Suspension 2 spray INTRANASAL QAM famotidine 20 mg tablet 20 mg PO HS Hold Instructions: Resume on 05/05/23. meclizine 25 mg tablet 25 mg PO HS PRN (Reason: Dizziness) albuterol sulfate [ProAir HFA] 90 mcg/actuation Hfa Aerosol Inhaler 2 puff INHALATION QID PRN (Reason: Shortness Of Breath Or Wheezing) trolamine salicylate [Aspercreme] 10 % Cream 1 applic TOPICAL BID PRN (Reason: Pain) atorvastatin 40 mg tablet 40 mg PO QAM levothyroxine [Synthroid] 75 mcg tablet 75 mcg PO QAM vitamin B complex Tablet 1 tab PO QAM Referrals Referrals: Magda Taylor DO [Primary Care Provider] -
--- NOTE | 2024-06-18 13:42 | XRay Report ---
XR chest 1V portable CLINICAL HISTORY: weakness COMPARISON STUDY: 03/30/2023 FINDINGS: Heart size and pulmonary vasculature are normal. There is interval mild opacity at the righ t base with blunting of the right costophrenic angle. No pneumothorax. IMPRESSION: Interval mild opacity at the right base could represent atelectasis, early pneumonia, or small right pleural effusion. ACT 112: Negative or not required by law. Electronically signed by: Andre Teran M.D. 06/18/2024 1:41 PM
--- NOTE | 2024-06-18 13:45 | CT Scan Report ---
CT head/brain wo con CLINICAL HISTORY: fall; confusion. TECHNIQUE: Multiple axial CT images of the head were obtained without contrast. A dose lowering tech nique was utilized adhering to the principles of ALARA. CT DOSE: 1049.31 mGy.cm COMPARISON: 03/11/2023 FINDINGS: No intracranial hemorrhage seen. There is stable mild prominence of the ventricles out of p roportion to the sulci, cerebral atrophy versus mild normal pressure hydrocephalus. Stable moderate c hronic small vessel ischemic change. No skull fracture seen. Visualized paranasal sinuses and mastoid air cells are clear. IMPRESSION: No acute findings. ACT 112: Negative or not required by law. The above report was generated using voice recognition software. It may contain grammatical, syntax o r spelling errors. Electronically signed by: Andre Teran M.D. 06/18/2024 1:44 PM
--- NOTE | 2024-06-18 13:56 | CT Scan Report ---
CT cervical spine wo con CLINICAL HISTORY: 78 years-old Female with fall; confusion. Acute neck injury status post fall COMPARISON: Head CT of same day, MRI cervical spine 03/22/2023, 03/31/2023 TECHNIQUE: Multiple axial CT images of the cervical spine were obtained without contrast. A dose low ering technique was utilized adhering to the principles of ALARA. FINDINGS: Moderate to severe intervertebral disc space narrowing with spondylitic spurring posterior disc osteophyte complex lesions redemonstrated at C4-C5, C5-C6 and C6-C7. Moderate to severe multilev el facet arthropathy. No acute fracture or subluxation identified. There is moderate to severe degene ration of the right temporal mandibular joint. The cervical soft tissues appear unremarkable. No pneumothorax. Intralobular septal thickening of th e lung apices. Linear subpleural opacity of the right lung apex favors scarring. Unremarkable soft ti ssues. IMPRESSION: No acute cervical spine fracture or subluxation. ACT 112: Negative or not required by law. The above report was generated using voice recognition software. It may contain grammatical, syntax o r spelling errors. Electronically signed by: Herbie Benitez M.D. 06/18/2024 1:53 PM
[2024-06-18 14:20] LABS: Appearance Urine Cloudy (Clear); Bacteria Urine Automated 4+ (None Seen); Bilirubin Urine Negative (Negative); Blood Urine Negative (Negative); Cast Urine Automated 0-2 /lpf (0-2); Color Urine Dark Yellow; Epithelial Cell Urine Auto 0-2 /hpf (0-2); Glucose Urine UA Negative (Negative); Ketones Urine Trace (Negative); Leukocyte Esterase Urine 3+ (Negative); Nitrite Urine Negative (Negative); Protein Urine Trace (Negative); RBC Urine Automated 0-2 /hpf (0-2); Specific Gravity Urine 1.016 (1.000-1.030); Urobilinogen Urine Negative (Negative); WBC Urine Automated >50 /hpf (0-5); pH Urine 8.5 (4.5-7.5)
[2024-06-18 14:34] LABS: Basophils # (auto) 0.06 K/uL (0.00-0.20); Basophils % (auto) 0.5 %; Eosinophils # (auto) 0.23 K/uL (0.00-0.50); Eosinophils % (auto) 1.9 %; Hematocrit (blood only) 42.1 % (37.0-47.0); Immature Granulocytes # (auto) 0.08 K/uL (0.01-0.20); Immature Granulocytes % (auto) 0.7 %; Lymphocytes # (auto) 1.61 K/uL (1.20-3.40); Lymphocytes % (auto) 13.3 %; Mean Corpuscular Hemoglobin 29.9 pg (25.0-34.0); Mean Corpuscular Hgb Conc 33.3 g/dL (32.0-36.0); Mean Platelet Volume 9.9 fL (9.4-12.4); Monocytes # (auto) 1.33 K/uL (0.11-0.59); Neutrophils # (auto) 8.83 K/uL (1.40-6.50); Neutrophils % (auto) 72.6 %; Platelet Count 311 K/uL (130-400); RDW Coefficient of Variation 12.7 % (11.5-14.5); RDW Standard Deviation 42.4 fL (36.4-46.3); Red Blood Count 4.68 M/uL (4.20-5.40); White Blood Count 12.14 K/ul (4.8-10.8)
[2024-06-18 14:50] LABS: Alanine Aminotransferase 16 U/L (7-52); Albumin Globulin Ratio 1.2 (0.9-2); Albumin Level 3.8 gm/dl (3.4-5.0); Alkaline Phosphatase 64 U/L (34-104); Anion Gap 7 (3-11); Aspartate Aminotransferase 23 U/L (13-39); BUN Creatinine Ratio 23.6 (10-20); Bilirubin,Total 0.8 mg/dl (0.2-1.0); Blood Urea Nitrogen 17 mg/dl (6-23); Calcium 9.3 mg/dl (8.6-10.3); Carbon Dioxide 29 mmol/L (21-32); Chloride 100 mmol/L (98-107); Creatinine Clr Calc Pharmacy 72.1 ml/min; Globulin 3.2 gm/dl (2.5-4.0); Glucose 94 mg/dl (70-99(Fasting)); Magnesium 1.8 mg/dl (1.7-2.4); Potassium 4.3 mmol/L (3.5-5.1); Sodium 136 mmol/L (136-145)
[2024-06-18] MEDS: ERTAPENEM 1000MG 1,000 MG/10 ML SYR IV STA (14:53)
[2024-06-18 14:54] LABS: Troponin I High Sensitivity < 2.3 pg/ml (0-14)
[2024-06-18 15:04] LABS: Thyroid Stimulating Hormone 1.689 uIu/ml (0.300-4.500)
[2024-06-18 15:18] LABS: Prothrombin Time 10.5 Seconds (9.0-12.0)
--- NOTE | 2024-06-18 16:35 | History & Physical Report ---
Date of Service June 18, 2024 Assessment & Plan (1) Acute UTI: Plan: Assessment/plan Mechanical fall Acute urinary tract infection Patient presents with mechanical fall and generazlied weakness Leukocytosis present with WBC count of 12,000. BUN/creatinine within normal limits. Electrolytes within normal limits. Urinalysis was positive for infection. CT head did not show any acute finding. CXR x-ray showed interval mid opacity of right base. Patient denies any cough, fever, or chills Cervical CT didn't show any findings. Plan to treat with ertapenem given her past urine culture results. Follow-up on final urine culture results. Obtain blood culture PT OT evaluation Obtain [employer] given right base opacity to rule out aspiration. will obtain procal. monitor for symptoms of pneumonia including cough, fever or shortness of breath History of asthmacontinue home inhalers Hypertensioncontinue amlodipine GERDcontinue omeprazole History of hyponatremiacontinue on salt tablets History of DVTcurrently not on anticoagulation; DVT prophylaxis-heparin Full code Time spent evaluating patient, direct bedside care, chart review, placing orders, interpretation of diagnostic studies, discussion with consultants, patient, and family members, as well as other required patient management activities is 75 minutes Please note the above document was generated using voice recognition software. It may contain grammatical, syntax or spelling errors. Any formal questions or concerns about the content, text or information contained within the body of this dictation should be directly addressed to the provider for clarification History of Present Illness Chief Complaint: Generalized weakness for 3 days Primary Care Provider: Magda Taylor DO History obtained from interview with the patient, patient's , ED provider and chart review. Past medical history of mild intermittent asthma, hypertension, irritable bowel syndrome, GERD, chronic interstitial cystitis, osteoarthritis, factor V Leiden mutation, history of CVA, hyponatremia, history of DVT Last admission in March 2023; admitted for fever of unknown origin, generalized weakness in setting of COVID-19 infection.Patient was then transferred to [facility] for further evaluation; was admitted there for over a month. She was then discharged to [facility] where she was there for 3 months and then went back home. Patient presents to the hospital with generalized weakness and fall. Patient reports that she has been feeling weaker for last 3 days. She reportedly had a fall last week. She reports urinary urgency She denies loss of consciousness, fever, chills, chest pain, shortness of breath or abdominal pain. She denies any urinary symptoms as well. On presentation to the ED, she was afebrile, normotensive and saturating well on room air. Lab work showed leukocytosis with WBC count of 12,000. BUN/creatinine within normal limits. Electrolytes within normal limits. Urinalysis was positive for infection. CT head did not show any acute finding. Checks x-ray showed interval mid opacity of right base. Cervical CT didn't show any findings. Allergies Allergy/AdvReac Type Severity Reaction Status Date / Time indomethacin Allergy Intermediate "FEEL Verified 03/11/23 19:19 STRANGE AND OUT OF IT" adhesive Allergy Mild RASH WITH Verified 03/11/23 19:19 EXTENDED USE bacitracin Allergy Mild RASH Verified 03/11/23 19:19 latex Allergy Mild RASH WITH Verified 03/11/23 19:19 LONGER EXPOSURE neomycin Allergy Mild RASH Verified 03/11/23 19:19 polymyxin B Allergy Mild RASH Verified 03/11/23 19:19 Sulfa (Sulfonamide Allergy Mild RASH Verified 03/11/23 19:19 Antibiotics) Home Medications Medication Instructions Recorded Confirmed Type aspirin 325 mg tablet 325 mg PO QAM 05/23/18 06/18/24 History calcium 600 mg (as 1 cap PO QDL 05/23/18 06/18/24 History carbonate)-vitamin D3 62.5 mcg (2,500 unit) capsule esomeprazole magnesium 40 mg 40 mg PO DAILYBB 05/23/18 06/18/24 History capsule,delayed release (Nexium) ipratropium bromide 21 mcg (0.03 1 sprays intranasal DAILY 05/23/18 06/18/24 History %) nasal spray montelukast 10 mg tablet 10 mg PO HS 05/23/18 06/18/24 History (Singulair) multivitamin 1 tab PO QDL 05/23/18 06/18/24 History vitamin E 268 mg (400 unit) capsule 400 unit PO QDL 01/26/19 06/18/24 History calcium carbonate (Tums Ultra) 400 mg PO DIRECTED PRN Gi Upset 05/10/19 History fluticasone propionate 50 2 spray intranasal QAM 07/29/20 06/18/24 History mcg/actuation nasal spray,suspension amlodipine 2.5 mg tablet 2.5 mg PO QAM #90 tabs 12/06/22 06/18/24 Rx albuterol sulfate 90 mcg/actuation 2 puff inhalation QID PRN 03/01/23 06/18/24 History aerosol inhaler (ProAir HFA) Shortness Of Breath Or Wheezing famotidine 20 mg tablet 20 mg PO HS 03/01/23 06/18/24 History meclizine 25 mg tablet 25 mg PO HS PRN Dizziness 03/01/23 06/18/24 History trolamine salicylate 10 % topical 1 applic topical BID PRN Pain 03/01/23 06/18/24 History cream (Aspercreme) sodium chloride 1,000 mg soluble 1,000 mg PO DAILY 03/11/23 06/18/24 History tablet diclofenac sodium 1 % topical gel 2 g EXT BID #100 grams 03/31/23 06/18/24 Rx (Voltaren Arthritis Pain) atorvastatin 40 mg tablet 40 mg PO QAM 06/18/24 06/18/24 History levothyroxine 75 mcg tablet 75 mcg PO QAM 06/18/24 06/18/24 History (Synthroid) vitamin B complex 1 tab PO QAM 06/18/24 06/18/24 History Past Med/Surg History Problem List (Updated 06/18/24 @ 16:30 by Raj Sanchez MD) Acute UTI Osteoarthritis of left knee Fracture, humerus, proximal Lethargy Weakness COVID-19 (Acute) Seasonal allergic conjunctivitis (12/12/10) Asthma History of DVT (deep vein thrombosis) Lumbar radiculopathy Synovial cyst of lumbar facet joint (Chronic) Encounter for pre-operative examination Hyponatremia (Chronic) Hypertension (Chronic) Nodule of esophagus Right hand pain Ganglion cyst of tendon sheath of right hand Generalized weakness (Acute) Fall (Acute) DVT prophylaxis Fever after vaccination (Acute) Generalized weakness (Acute) Acute dehydration (Acute) Status post administration of all doses of COVID-19 vaccine series (Acute) Uncontrolled hypertension Encounter for pre-operative examination Chronic diarrhea Pes anserinus bursitis of left knee Lumbar facet joint syndrome Vitamin D deficiency Chronic pain of left knee (Chronic) GERD (gastroesophageal reflux disease) DVT (deep venous thrombosis) LEFT LEG (WAS TAKING WARFARIN 2011) History of surgery on arm RT ARM S/P wrist surgery LEFT History of cataract surgery RT/LEFT Spinal stenosis Medical History Asthma Hyponatremia Diarrhea Transient ischemic attack (TIA) Hyperlipidemia Osteoarthritis History of colitis Factor V Leiden HTN (hypertension) Surgical History History of bilateral tubal ligation History of esophagogastroduodenoscopy (EGD) History of colonoscopy History of tooth extraction Family History Mother Family history of diabetes mellitus Aunt Family hx of colon cancer Other No family history of adverse response to anesthesia Social History Smoking Status: Former smoker Second Hand Exposure: No; Do You Dip or Chew Tobacco: No; Hx Alcohol Use: No Hx Substance Use: No Preferred Language: Malagasy Communication Ability: Effective Visual Impairment: No Limitations Hearing Ability: Normal Engine Builder Required: No Beliefs That Will Affect Care: None marital status: Current Living Situation: Spouse Current Living Situation Comment: house current occupational status: retired Feels Safe at Home: Yes Assistive Devices: Cane Physical Exam Physical Exam: On physical exam; Constitutional: Alert oriented x2; not in distress. Respiratory: normal respiratory effort, lungs clear to auscultation, no wheeze, rales, rhonchi. Normal insp/exp effort, no accessory muscle use Cardiovascular: RRR, no murmur, no edema Vessels: no JVD or carotid bruit Chest: normal inspection of chest Abdomen: normal bowel sounds, soft, nontender, no hepatosplenomegaly Musculoskeletal: no cyanosis or clubbing, extremities motor strength 5/5 Skin: no rashes, warm and dry normal turgor Neurologic: PERRL, EOMI, accommodation nl, no face palsy, no dysarthria CN's II- XI intact bilaterally and moves all extremities Results & Data Results & Data Vital Signs (Past 12 Hours) Vital Signs Temp Pulse Pulse Resp BP BP BP 06/18/24 15:42 87 22 06/18/24 15:33 86 18 06/18/24 15:30 136/74 06/18/24 15:25 98 H 20 162/74 H 06/18/24 13:54 92 H 24 137/93 04/14/25 13:34 88 06/18/24 13:28 98 H 18 06/18/24 13:28 98 H 18 178/94 H 06/18/24 12:56 36.9 C 88 20 104/72 06/18/24 12:45 88 22 104/72 Pulse Ox O2 Del Method 06/18/24 15:42 95 Room Air 06/18/24 15:33 94 Room Air 06/18/24 15:30 06/18/24 15:25 99 Room Air 06/18/24 13:54 97 Room Air 06/18/24 13:34 06/18/24 13:28 99 Room Air 06/18/24 13:28 94 Room Air 06/18/24 12:56 98 Room Air 06/18/24 12:45 97 Room Air Code Status & VTE Plan VTE Prophylaxis Plan VTE Prophylaxis will be ordered: Yes
--- NOTE | 2024-06-18 16:45 | Electrocardiogram Report ---
Test Reason : Blood Pressure : */* mmHG Vent. Rate : 86 BPM Atrial Rate : 86 BPM P-R Int : 158 ms QRS Dur : 72 ms QT Int : 338 ms P-R-T Axes : 69 8 57 degrees QTcB Int : 404 ms Normal sinus rhythm Possible Left atrial enlargement Borderline ECG When compared with ECG of 15-Mar-2023 15:07, No significant change was found Confirmed by Gabino Wu ([id number]) on 06/18/2024 4:45:15 PM Referred By: REFERRED SELF Confirmed By: Gabino Wu
[2024-06-18] MEDS ORDERED: MECLIZINE HCL 25 MG TAB PO PRN (18:31)
[2024-06-18] MEDS ORDERED: POLYETHYLENE (MIRALAX) 17 GM PACK PO PRN (18:31)
[2024-06-18] MEDS ORDERED: CALCIUM CARBONATE 500 MG CHEWABLE TAB PO PRN (18:31)
[2024-06-18] MEDS ORDERED: MAGNESIUM HYDROXIDE SUSP 30 ML UDC PO PRN (18:31)
[2024-06-18] MEDS ORDERED: ALBUTEROL HFA 8 GM INHALER INH PRN (18:31)
[2024-06-18] MEDS ORDERED: ALUMINUM/MAGNESIUM SUSP 30 ML UDC PO PRN (18:31)
[2024-06-18] MEDS: LACTATED RINGER'S 1,000 ML IV SCH (19:31)
--- OUTSIDE RECORDS SUMMARY | 2024-06-18 20:47 | External Medical Summary | Summary of Care ---
Author Name Unknown Organization [facility] Address [address] [facility] [place] [address] Phone [phone] Care Team Providers Care Ripsawyer Name Role Phone Magda Taylor DO Primary Care Provider Reason for Visit * Reason Onset Date Comments Precert Approved 06/06/2024 Prolia Encounter Details Date Type Department Care Team (Late st Contact Info) Description 06/06/2024 Telephone Rheumatology [facility] [address] [place] [phone] Jam[facility] Alvarez [facility] [address] [facility] [address] Precert Approved (Prolia ) Allergies Active Allergy Reactions Criticality Noted Date Comments Adhesive Tape 07/24/2003 Bandaids Bacitracin Low 09/23/2003 rash/irritation Other reaction(s): RASH Indomethacin Low 08/06/2003 (?) rash Latex Low 12/26/2020 Other reaction(s): RASH WITH LONGER EXPOSURE Other reaction(s): RASH WITH LONGER EXPOSURE Neomycin Low 07/28/2021 Other reaction(s): RASH Polymyxin B Low 12/26/2020 Other reaction(s): RASH Other reaction(s): RASH Zoster Vac Recomb Adjuvanted Other (Please comment) High 05/17/2019 Weakness LE, unable to stand or ambulate for several hours after the first injection Sulfa Antibiotics Medium 07/20/2004 Bactrim -dizziness documented as of this encounter (statuses as of 06/11/2024) Medications ASPIRIN 325 MG PO TABS 1 daily Active acetaminophen (TYLENOL) 500 MG Tablet Take 2 Tablets by mouth in the morning and 2 Tablets before bedtime. 100 Tab 8 Active Azelastine-Flutic asone (DYMISTA) 137-50 MCG/ACT nasal sprayIndications: Chronic rhinitis Administer 1 [place] into nostril 2 times a day. Use in each nostril as directed 3 Bottle 3 9 Active Misc Natural Products (GLUCOSAMINE CHOND COMPLEX/MSM) Tablet 1 Tablet. 9 Active Calcium Carb-Cholecalcife rol (CALCIUM CARBONATE-VITAMIN D3) 600-400 MG-UNIT TABS 1 Capsule. Takes this without the vitamin d 9 Active vitamin e 100 UNIT Capsule Take 1 Capsule by mouth in the morning. Active Calcium Carbonate Antacid 1000 MG Oral Tablet Chewable Take 400 mg by mouth as needed. 0 Active amLODIPine Besylate 2.5 MG Oral Tablet (NORVASC) 0 Active ProAir HFA 108 (90 Base) MCG/ACT Inhalation Aerosol SolutionIndicatio ns:Mild intermittent reactive airway disease with wheezing without complication Inhale 2 Puffs by mouth 4 times a day. 6.7 g 3 1 Active Clobetasol Propionate 0.05 % External SolutionIndicatio ns:Irritant contact dermatitis, unspecified trigger Apply topically to affected area 2 times a day. Apply to scalp and hair line - allow to soak in. 50 mL 1 Active Diclofenac Sodium 1 % External Gel (Voltaren) Apply topically to affected area. Apply tt left ankle Active Potassium Chloride ER 20 MEQ Oral Tablet Extended Release Take 1 Tablet by mouth in the morning and 1 Tablet before bedtime. Active Ibuprofen 400 MG Oral Tablet (Motrin) Take 2 Tablets by mouth every 6 hours as needed. Active Melatonin 3-2 MG Oral Tablet Take by mouth. Act annabella Magnesium Hydroxide 400 MG/5ML Oral Suspension (Milk of Magnesia) Take by mouth daily as needed for Constipation. Active Multi-Day Vitamins Oral Tablet Take 1 Tablet by mouth in the morning. Active Atorvastatin Calcium 40 MG Oral Tablet (Lipitor)Indicati ons:Dyslipidemia, goal LDL below 100 Take 1 Tablet by mouth in the morning. 90 Tablet 5 4 Active Ipratropium [place] 0.03 % Nasal SolutionIndicatio ns:Chronic rhinitis 1 squirt each nostril in the afternoon and evening 30 mL 5 4 Active Esomeprazole Magnesium 40 MG Oral Capsule Delayed Release Take 1 Capsule by mouth daily before breakfast. 90 Capsule 3 4 Active Levothyroxine Sodium 75 MCG Oral Tablet (Levoxyl) Take 1 Tablet by mouth daily first thing in the morning. (at least 30 min prior to breakfast or other meds) 90 Tablet 3 4 Active B Complex (Folic Acid) Oral Tablet Take by mouth. Active Ondansetron HCl 8 MG Oral Tablet (Zofran)Indicatio ns:Nausea and vomiting, unspecified vomiting type Take 1 Tablet by mouth every 8 hours as needed for Nausea. 20 Tablet 3 5 Active Montelukast Sodium 10 MG Oral Tablet (Singulair)Indica tions:Asthma with severity to be determined Take 1 Tablet by mouth at bedtime. 90 Tablet 1 5 Active Triamcinolone Acetonide 0.1 % External Cream (Aristocort)Indic ations:Dermatitis Apply topically to affected area 2 times a day. To affected area. 30 g 1 5 Active Fluticasone Propionate 50 MCG/ACT Nasal Suspension (Flonase) Administer 2 Sprays into each nostril in the morning. 48 g 1 5 Active Loperamide HCl 2 MG Oral Tablet (Imodium A-D) Take by mouth. 4 Active Melatonin 3 MG Oral Tablet Take by mouth. 4 Active Pantoprazole Sodium 40 MG Oral Tablet Delayed Release (Protonix) Take by mouth daily. 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 Monocytosis 04/21/2023 Moderate protein-calorie malnutrition 04/18/2023 Fever of unknown origin (FUO) 04/10/2023 COVID-19 virus infection 04/06/2023 Dysphagia 04/06/2023 Microcytic anemia 04/03/2023 Encephalopathy acute 04/02/2023 Spondylosis of lumbar region without myelopathy or radiculopathy 02/17/2018 Overview (02/17/2018): 02/21-xr-xle DDD L1-2, L4-5 with facet arthropathy Gastroesophageal reflux disease without esophagi tis 01/18/2018 Overview (01/18/2018): EGD-11/2013-nml, bx mild inflm--nexium 40mg ,zantac 150mg hs History of CVA in adulthood 01/18/2018 Overview (01/18/2018): - Pontine per pt--asa 325 mg. HTN, goal below 140/90 01/18/2018 Overview (01/18/2018): amlodipine 10mg Hyponatremia 01/18/2018 Overview (01/18/2018): Enio RenteriaXiOeoyguv-6200-xi Na Cl 1gm bid Factor 5 Leiden mutation, heterozygous 8 Overview (01/18/2018): H/o DVT left leg 2012-was on coumadin x 6 mths., khang Min-now on asa 325mg History of deep vein thrombosis (DVT) of lower e xtremity 01/18/2018 Chronic interstitial cystitis without hematuria 01/18/2018 Overview (01/18/2018): Enio Arora- weaned off elmiron 2016 Generalized osteoarthritis 01/31/2008 MEMORY DISTURBANCE 03/24/2005 Senile osteoporosis 01/25/2005 Overview (08/27/2018): 08/23-+2.5/-2.1--L-m R-consider dc actonel ( st ? [id number] then saw [facility]) Irritable bowel syndrome 04/15/2003 Overview (01/18/2018): Csope 09/2013-nml --rpt 5 yrs(son pre-can P) DJD, CERVICAL SPINE 05/22/2002 Mild intermittent asthma without complication Overview (01/18/2018): singulair documented as of this encounter (statuses as of 06/11/2024) Resolved Problems Problem Noted Date Diagnosed Date Resolved Date History of mammogram 01/18/2018 019 Overview (01/18/2018): Neg / per pt History of Papanicolaou smear of cervix 01/18/2018 11/27/2018 Overview (01/18/2018): Neg 10/ per pt DrMcCleary Retinal edema 02/06/2010 01/18/2018 Open wound of forearm 11/21/20072007 CELLULITIS OF ARM, RIGHT 11/21/2007 CELLULITIS OF NOSE, LEFT 12/23/2006 Hematuria 09/26/2006 01/24/2007 Overview (05/29/2015): ICD-10 update of inactive term Nausea 09/26/2006 01/24/2007 Overview (12/28/2016): ICD-10 update of inactive term Acute stress reaction 09/26/20062006 Anxiety state 05/30/2006 01/18/2018 CALLUS, LEFT 5TH METATARSAL 07/20/2005 01/24/2007 PRESSURE INCREASED INTRAOCULAR 07/20/2005 01/18/2018 SPRAIN LUMBOSACRAL 02/05/2005 7 Spasm of muscle 02/05/2005 01/24/2007 ADVANCE DIRECTIVE INFORMATION 08/27/2004 01/18/2018 Overview (08/27/2004): Yes, Copy scanned at patient level in [...] PAPULE, BACK 04/15/2003 NONALLERGIC RHINITIS 09/11/2002 019 Overview (01/18/2018): On harriett oliveira atrovent NS AC SUPP OTITIS MEDIA, RIGHT 05/22/2002 07/09/2003 AC MAXILLARY SINUSITIS 10/11/200107/08 ACUTE URI NOS 10/11/2001 07/09/2003 Urinary frequency 11/27/2018 documented as of this encounter (statuses as of 06/11/2024) Immunizations Name Administration Dates Next Due COVID-19 mRNA, LNP-s, No Pre serve, 2-Dose Series (Pollen) 12/25/2020,05/03/2020,04/12/2020 Pneumococcal Conjugate Vacc, 13 Valent (Prevnar) 11/02/2018 Season Influenza, Quad, PF, Adjuvanted, 65+ Yrs, IM (FLUAD) 12/12/2019 Seasonal Influenza Vac., MDV , IM, 0.5 mL (Fluzone) 01/08/2008,01/05/2007,01/06/2006 Seasonal Influenza, High Dos e, Trivalent, PF, IM (Fluzone HD) 11/19/2023 Seasonal Influenza, PF, 6 M & above, IM , (FluLaval or Fluzone) 11/27/2018 11/28/2019 Seasonal Influenza, Quadriva lent Hd (Fluzone Hd) 12/11/2022,11/21/2021,11/22/2020 Seasonal Influenza, Quadriva lent, No Preserve, IM 11/10/2017 TDAP (age 10 and older)(Boostrix) 12/28/2018 Zoster [...] Date Recorded PHQ Adult Total Score 0 01/17/2024 Hunger Vital Sign Answer Date Recorded Worried About Running Out of Food in the Last Ye ar Never true 10/25/2019 Ran Out of Food in the Last Year Never true 10/25/2019 Comments No Sex and Gender Information Value Date Recorded Sex Assigned at Female 12/27/2018 3:14 PM EDT Legal Sex Female 5:46 AM EST Gender Identity Female 12/27/2018 3:14 PM EDT Sexual Orientation Straight 11/02/2018 8: 50 AM EDT Occupation Industry Job Start Date Job End Date retired- 1993 Not on file Not on file Not on file documented as of this encounter Functional Status * Are you deaf or do you have serious difficulty hearing? Answer Date of Assessment Author No 04/02/2023 6:29 PM James Hidalgo RN * Are you blind or do you have serious difficulty seeing, even when wearing glasses? Answer Date of Assessment Author No 04/02/2023 6:29 PM James Hidalgo RN * Do you have serious difficulty walking or climbing stairs? (5 years old or older) Answer Date of Assessment Author Yes 04/02/2023 6:29 PM James Hidalgo, ERNA * Do you have difficulty dressing or bathing? (5 years old or older) Answer Date of Assessment Author Yes 04/02/2023 6:29 PM James Hidalgo RN * Because of a physical, mental, or emotional condition, do you have difficulty doing errands alone such as visiting a doctor’s office or shopping? (15 years old or older) Answer Date of Assessment Author Yes 04/02/2023 6:29 PM James Hidalgo RN documented as of this encounter Mental Status * Because of a physical, mental, or emotional condition, do you have serious difficulty concentrating, remembering, or making decisions? (5 years old or older) Answer Entry Date Author Yes 04/02/2023 6:29 PM James Hidalgo RN documented in this encounter Miscellaneous Notes * Telephone Encounter - Meg Bermudez OSA - 06/11/2024 10:57 AM EDT SEE REFERRAL MESSAGE * Telephone Encounter - Meg Bermudez OSA - 06/07/2024 9:04 AM EDT [facility] Authorization Submission Submission Information: Medication: PROLIA Portal used: Availity Insurance: [employer] MEDICARE Authorization #/Swan: [id number] * Telephone Encounter - Alondra Fisher LPN - 06/06/2024 10:22 AM EDT Patient has an upcoming appointment to receive prolia. Please check for a current auth and notify patient of any oop cost. Supervised by Dr. Jamar Alvarez, getting prolia at [facility] on 06/06/2024 Thank you! Labs WNL for prolia documented in this encounter Plan of Treatment Upcoming Encounters Date Type Department Care Team (Late st Contact Info) Description 08/10/2024 2:30 PM EDT Office Visit Otolaryngology [facility] [address] [place] [address] Hal Padilla DO [address] [place] [address] 09/14/2024 8:30 AM EDT Office Visit [facility], [address] [phone] Magda Taylor, DO [address] [place] [address] 11/27/2024 2:00 PM EDT Imaging Radiology [facility] [address] [place] [phone] 12/26/2024 11:30 AM EDT Office Visit [facility] [address] [place] [phone] Magda Taylor, DO [address] [place] [address] 01/09/2025 1:30 PM EST Nurse Only Rheumatology [facility] [address] [place] [phone] [facility], Nurse Rheum Rust [address] [facility] [place] [address] 07/12/2025 11:30 AM EDT Office Visit Rheumatology [facility] [address] [place] [phone] Pito Alfredo PA-C [address] [place] [address] Scheduled Procedures Name Priority Associated Diagnoses Date/Ti me COLONOSCOPY FLEXIBLE PROXIMA L DIAGNOSTIC Recall Encounter for screening colonoscopy Health Maintenance Due Date Last Done Comments Adult Wellness Visit 2012 Pneumococcal Vaccine: 50+ Years (2 of 2 - PPSV23) 12/28/2018 11/02/2018 COVID-19 Vaccine ( season) 2023 12/25/2020, 05/03/2020, 04/12/2020 *BISPHONATE OR OTHER ACCEPTABLE MEDICATION NEEDED FOR OSTEOPOROSIS (REFER TO SMARTSET #1146) 04/13/2024 DXA Scan 09/21/2024 09/21/2022, 07/0 08/2020, 08/09/2018, Additional history exists Depression Screening 01/16/2025 01/17/2024 TSH 04/27/2025 04/27/2024, 08/0 03/2023, 04/02/2023, Additional history exists GFR 06/06/2025 06/06/2024, 04/08, 01/17/2024, Additional history exists Albumin/Creatinine Ratio 01/16/2027 01/17/2024 Colonoscopy 05/29/2027 05/28/2022, 07/06, 12/08/2018, Additional history exists DTap/Tdap Vaccines (2 - Td or Tdap) 12/28/2028 12/28/2018, 12/22/2004 Zoster Vaccines Discontinued 05/09/2019 RETIRED - COLONOSCOPY-EVERY 5 YRS AGES 18-100 Discontinued 05/28/2022, 08/01/2020, 12/08/2018, Additional history exists Influenza Vaccine (FLU shot) Completed 11/19/2023, 12/11/2022, 11/21/2021, Additional history exists VITAMIN D LEVEL ONCE IN A LIFETIME-USE SMARTSET# [id number] Completed 06/06/2024, 10/06/2023, 04/13/2023, Additional history exists HPV (Gardasil) Vaccine Aged Out No lo nger eligible based on patient's age to complete this topic Hepatitis B Vaccine Aged Out No longe r eligible based on patient's age to complete this topic MENINGOCOCCAL (MENACTRA/MENVEO) Aged Out No longer eligible based on patient's age to complete this topic Meningitis B Vaccine (Bexsero/Trumemba) Aged Out No longer eligible based on patient's age to complete this topic documented as of this encounter Medical Devices Not on filedocumented as of this encounter Additional Health Concerns Infection Onset Date Last Indicated Resolved Time ESBL 05/22/2024 05/22/2024 documented as of this encounter Advance Directives * Full Code (Latest Code Status on File) Date Activated Date Inactivated Comments 04/02/2023 6:45 PM 05/09/2023 5:31 PM This order re flects the patients wishes and were consensually agreed upon. Question Answer Comments Discussion of Advance Direct siobhan occurred with: Not Discussed due to patient's condition * Full Code Date Activated Date Inactivated Comments 01/16/2020 9:16 AM 01/16/2020 2:21 PM This order reflects the patients wishes and were consensually agreed upon. Question Answer Comments Discussion of Advance Directives occurred with: Not Discussed * Full Code Date Activated Date Inactivated Comments 01/16/2020 8:54 AM 01/16/2020 9:16 AM This order reflects the patients wishes and were consensually agreed upon. Question Answer Comments Discussion of Advance Directives occurred with: Not Discussed Care Teams Ripsawyer Relationship Specialty Start Date End Date Magda Taylor DO [address] [place] [address] PCP - General Family Medicine 11/02/18 documented as of this encounter
--- OUTSIDE RECORDS SUMMARY | 2024-06-18 20:47 | External Medical Summary ---
Author Name Unknown Address Unknown Organization [facility] [address] [place] [id number] Laboratory Report Ordering Provider Test Date Status MOHSEN LANG 06/06/2024 14:44:24 Final Observation Date Value Abnormality Reference (Units ) Status Calcium 06/06/2024 14:44:24 9.4 8.4-10.2 ( mg/dL) Final Performing Location [facility] [address] [place] [address]
--- OUTSIDE RECORDS SUMMARY | 2024-06-18 20:47 | External Medical Summary | Summary of Care ---
Author Name Unknown Organization [facility] Address [address] [facility] [place] [address] Phone [phone] Care Team Providers Care Mushroom Growing Supervisor Name Role Phone Magda Taylor DO Primary Care Provider Reason for Visit * Reason Comments Rheum Follow Up Follow up - [facility] * Evaluate & Treat - Unlimited Visits (Within 10 days (routine)) - Closed Specialty Diagnoses / Procedures Referred By Leon vazquez Referred To Contact Rheumatology Diagnoses Senile osteoporosis Magda Taylor DO Phone: tel: fax: Referral ID Status Reason Start Date Expiration Date V isits Requested Visits Authorized [id number] Closed Specialty Services Required 10/29/[phone] Encounter Details Date Type Department Care Team (Late st Contact Info) Description 06/06/2024 11:00 AM EDT Office Visit Rheumatology [facility] [address] [place] [phone] Jamar Alvarez MD [address] [facility] [place] [address] Senile osteoporosis* Allergies Active Allergy Reactions Criticality Noted Date [...] as of this encounter (statuses as of 06/06/2024) Medications ASPIRIN 325 MG PO TABS 1 daily Active acetaminophen (TYLENOL) 500 MG Tablet Take 2 Tablets by mouth in the morning and 2 Tablets before bedtime. 100 Tab 8 Active Azelastine-Fluti casone (DYMISTA) 137-50 MCG/ACT nasal sprayIndications :Chronic rhinitis Administer 1 Concepcion into nostril 2 times a day. Use in each nostril as directed 3 Bottle 3 9 Active Misc Natural Products (GLUCOSAMINE CHOND COMPLEX/MSM) Tablet 1 Tablet. 9 Active Calcium Carb-Cholecalcif landon (CALCIUM CARBONATE-VITAMI N D3) 600-400 MG-UNIT TABS 1 Capsule. Takes this without the vitamin d 9 Active vitamin e 100 UNIT Capsule Take 1 Capsule by mouth in the morning. Active Calcium Carbonate Antacid 1000 MG Oral Tablet Chewable Take 400 mg by mouth as needed. 0 Active amLODIPine Besylate 2.5 MG Oral Tablet (NORVASC) 0 Active ProAir HFA 108 (90 Base) MCG/ACT Inhalation Aerosol SolutionIndicati ons:Mild intermittent reactive airway disease with wheezing without complication Inhale 2 Puffs by mouth 4 times a day. 6.7 g 3 1 Active Clobetasol Propionate 0.05 % External SolutionIndicati ons:Irritant contact dermatitis, unspecified trigger Apply topically to [...] Active Atorvastatin Calcium 40 MG Oral Tablet (Lipitor)Indicat ions:Dyslipidemi a, goal LDL below 100 Take 1 Tablet by mouth in the morning. 90 Tablet 5 4 Active Ipratropium [place] 0.03 % Nasal SolutionIndicati ons:Chronic rhinitis 1 squirt each nostril in the [...] (Folic Acid) Oral Tablet Take by mouth. Activ e Ondansetron HCl 8 MG Oral Tablet (Zofran)Indicati ons:Nausea and vomiting, unspecified vomiting type Take 1 Tablet by mouth every 8 hours as needed for Nausea. 20 Tablet 3 5 Active Montelukast Sodium 10 MG Oral Tablet (Singulair)Indic ations:Asthma with severity to be determined Take 1 Tablet by mouth at bedtime. 90 Tablet 1 5 Active Triamcinolone Acetonide 0.1 % External Cream (Aristocort)Paola cations:Dermatit is Apply topically to affected area 2 times [...] (Protonix) Take by mouth daily. 4 Active Famotidine 20 MG Oral Tablet (Pepcid)Indicati ons:Gastroesopha geal reflux disease without esophagitis Take 1 Tablet by mouth in the morning and 1 Tablet before bedtime. 180 Tablet 3 3 025 Discontin ued(Medic ation List Clean Up) documented as of this encounter (statuses as of 06/06/2024) Active Problems Problem Noted Date Diagnosed Date [...] amlodipine 10mg Hyponatremia 01/18/2018 Overview (01/18/2018): Enio [id number] Na Cl 1gm bid Factor 5 Leiden [...] 08/23-+2.5/-2.1--L-m R-consider dc actonel ( st ? 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 Mild intermittent asthma without complication Overview (01/18/2018): singulair documented as of this encounter (statuses as of 06/06/2024) Resolved Problems Problem Noted Date Diagnosed Date Resolved Date History of mammogram 01/18/2018 019 Overview (01/18/2018): Neg 9/18 per pt History of Papanicolaou smear of cervix 01/18/2018 11/27/2018 Overview (01/18/2018): Neg 10/18 per pt [facility] Retinal edema 02/06/2010 01/18/2018 Open wound of [...] as of this encounter (statuses as of 06/06/2024) Immunizations Name Administration Dates Next Due COVID-19 [...] Sign Reading Time Taken Comments Blood Pressure - - Pulse - - Temperature 36.2 °C (97.1 °F) 06/06/2024 10:55 AM E DT Respiratory Rate - - Oxygen Saturation - - Inhaled Oxygen Concentration - - Weight 87.5 kg (193 lb) 06/06/2024 10:55 AM EDT Height - - Body Mass Index 32.12 05/22/2024 12:20 PM EDT documented in this encounter Functional Status * Are you [...] James Hidalgo RN * Do you have difficulty dressing or [...] James Hidalgo RN documented in this encounter Patient Instructions * Patient Instructions* Jamar Alvarez MD - 06/06/2024 11:07 AM EDT MEDICATION GUIDE Prolia™ (PRÓ-di-a) (denosumab) Injection Read the Medication Guide that comes with Prolia before you start taking it and each time you get arefill. There may be new information. This Medication Guide does not take the place of talking withyour doctor about your medical condition or treatment. Talk to your doctor if you have any questions about Prolia. What is the most important information I should know about Prolia? Prolia can cause serious side effects includin. Low calcium levels in your blood (hypocalcemia). Prolia may lower the calcium levels in your blood. If you have low blood calcium before you start receiving Prolia, it may get worse during treatment. Your low blood calcium must be treated before you receive Prolia. Most people with low blood calcium levels do not have symptoms, but some people may have symptoms. Call your doctor right away if you have symptoms of low blood calcium such as: Spasms, twitches, or cramps in your muscles Numbness or tingling in your fingers, toes, or around your mouth Your doctor may prescribe calcium and vitamin D to help prevent low calcium levels in your blood while you take Prolia. Take calcium and vitamin D as your doctor tells you to. 2. Serious infections. Serious infections in your skin, lower stomach area (abdomen), bladder, or ear may happen if you take Prolia. Inflammation of the inner lining of the heart (endocarditis) due to an infection also mayhappen more often in people who take Prolia. You may need to go to the hospital for treatment if you develop an infection. Prolia is a medicine that may affect your immune system. People who have weakened immune system or take medicines that affect the immune system may have an increased risk for developing serious infections. Call your doctor right away if you have any of the following symptoms of infection: Fever or chills Skin that looks red or swollen and is hot or tender to touch Severe abdominal pain Frequent or urgent need to urinate or burning feeling when you urinate 3. Skin problems. Skin problems such as inflammation of your skin (dermatitis), rash, and eczema may happen if you take Prolia. Call your doctor if you have any of the following symptoms of skin problems that do not go away or get worse: Redness Itching Small bumps or patches (rash) Your skin is dry or feels like leather Blisters that ooze or become crusty Skin peeling 4. Severe jaw bone problems (osteonecrosis). Severe jaw bone problems may happen when you take Prolia. Your doctor should examine your mouth before you start Prolia. Your doctor may tell you to see your dentist before you start Prolia. It is important for you to practice good mouth care during treatment with Prolia. Call your doctor right away if you have any of these side effects. What is Prolia? Prolia is a prescription medicine used to treat osteoporosis (thinning and weakening of bone) in women after menopause (“change of life”) who Have an increased risk for fractures (broken bones). Cannot use another osteoporosis medicine or other osteoporosis medicines did not work well. Who should not receive Prolia? Do not take Prolia if you have been told by your doctor that your blood calcium level is too low. What should I tell my doctor before receiving Prolia? Before taking Prolia, tell your doctor if you: Have low blood calcium. Cannot take daily calcium and vitamin D. Had parathyroid or thyroid surgery (glands located in your neck). Have been told you have trouble absorbing minerals in your stomach or intestines (malabsorption syndrome). Have kidney problems or are on kidney dialysis. Plan to have dental surgery or teeth removed. Are or plan to become . Prolia may harm your unborn baby. Tell your doctor right away if you become while taking Prolia. Surveillance Program: Prolia is not intended for use in women. If you become while taking Prolia, talk to your doctor about enrolling with [employer]’s SurveillanceProgram or call (j-357-77-Optensity). The purpose of this program is to collect information about women who have become while taking Prolia. Are breast-feeding or plan to breast-feed. It is not known if Prolia passes into your breast milk. You and your doctor should decide if you will take Prolia or breast-feed. You should not do both. Tell your doctor about all the medicines you take, including prescription and nonprescription drugs, vitamins, and herbal supplements. Know the medicines you take. Keep a list of medicines with you to show to your doctor or pharmacistwhen you get a new medicine. How will I receive Prolia? Prolia is an injection that will be given to you by a healthcare professional. Prolia is injected under your skin (subcutaneous). You will receive Prolia 1 time every 6 months. You should take calcium and vitamin D as your doctor tells you to while you receive Prolia. If you miss a dose of Prolia, you should receive your injection as soon as you can. Take good care of your teeth and gums while you receive Prolia. [place] and floss your teeth regularly. Tell your dentist that you are receiving Prolia before you have dental work. What are the possible side effects of Prolia? Prolia may cause serious side effects. See “What is the most important information I should know about Prolia?” Long-term effects on bone: It is not known if the use of Prolia over a long period of time may cause slow healing of broken bones or unusual fractures. The most common side effects of Prolia are: Back pain Pain in your arms and legs High cholesterol Muscle pain Bladder infection These are not all the possible side effects of Prolia. For more information, ask your doctor or pharmacist. Call your doctor for medical advice about side effects. You may report side effects to FDA at 6-625-FBV-8766. How should I handle Prolia if I need to pick it up from a pharmacy? Keep Prolia in a refrigerator at 36°F to 46°F (2°C to 8°C) in the original carton. Do not freeze Prolia. When you remove Prolia from the refrigerator, Prolia must be kept at room temperature [up to 77°F (25°C)] in the original carton and must be used within 14 days. Do not keep Prolia at temperatures above 77°F (25°C). Warm temperatures will affect how Prolia works. Do not shake Prolia. Keep Prolia in the original carton to protect from light. Keep Prolia and all medicines out of reach of children. General information about Prolia Do not give Prolia to other people even if they have the same symptoms that you have. It may harm them. This Medication Guide summarizes the most important information about Prolia. If you would like more information, talk with your doctor. You can ask your doctor or pharmacist for information about Prolia that is written for health professionals. For more information, go to www.[employer] or call [employer] at . What are the ingredients in Prolia? Active ingredient: denosumab Inactive ingredients: sorbitol, acetate, polysorbate 20 (prefilled syringe only), Water for Injection (PRISON), and sodium hydroxide What is osteoporosis? Osteoporosis is a disease in which the bones become thin and weak, increasing the chance of having a broken bone. Osteoporosis usually causes no symptoms until a fracture happens. The most common fractures are in the spine (backbone). They can shorten height, even without causing pain. Over time, the spine can become curved or deformed and the body bent over. Fractures from osteoporosis can also happen in almost any bone in the body, for example: the wrist, rib, or hip. Once you have had a fracture, the chance for more fractures greatly increases. The following risk factors increase your chance of getting fractures from osteoporosis: Past broken bones from osteoporosis Very low bone mineral density (BMD) Frequent falls Limited movement, such as using a wheelchair Medical conditions likely to cause bone loss, such as some kinds of arthritis Taking steroid medicines called glucocorticoids, such as prednisone Other medicines that may cause bone loss, for example: seizure medicines (such as phenytoin), bloodthinners (such as heparin), high doses of vitamin A What can I do to treat osteoporosis? There are many steps you can take to treat osteoporosis. Taking Prolia, along with calcium and vitamin D, may be one option for you. [employer] a [employer] of [employer]. [address] [place], [place] [address] This Medication Guide has been approved by the US Food and Drug Administration. 1xxxxxx ? v1 Issued: 08/2009 documented in this encounter Progress Notes * Jamar Alvarez MD - 06/06/2024 10:59 AM EDT [facility] ([facility]): follow up Previous Visit Plan from 07/2023 reviewed. Reason for visit: Patient seen today for further follow-up/evaluation of osteoporosis. She is here with her . She has had 1 fall but no fractures. She has a walker but does not use it all the time. She had fallen because she was hurting to get to a pinched because her legs were starting to feel weak and fell forward. She was not evaluated at the Emergency Room. She is due for her 2nd Prolia but unfortunately needs a new authorization. Labs from the fall were normal. Bone Health Summary: Risks: Falls since last [facility] visit: yes Personal History of Fx since last [facility] Visit: no Prevention: Exercise : 3 or more times weekly: No Nutrition: eats calcium rich foods, Yes Gait: unsteady with walking, Yes, use of cane/walker, does have a walker but not always using it Calcium and Vitamin D supplements in adequate doses: Yes ROS: . Constitutional: normal . Ears, nose, throat, mouth: normal . Cardiovascular: normal . Respiratory: normal . Gastrointestinal: normal . Musculoskeletal: Joint pains . Genitourinary: normal Medications: Current Outpatient Medications Medication Sig Dispense Refill ASPIRIN 325 MG PO TABS 1 daily acetaminophen (TYLENOL) 500 MG Tablet Take 2 Tablets by mouth in the morning and 2 Tablets before bedtime. 100 Tab 0 Azelastine-Fluticasone (DYMISTA) 137-50 MCG/ACT nasal spray Administer 1 Concepcion into nostril 2 timesa day. Use in each nostril as directed 3 Bottle 3 Misc Natural Products (GLUCOSAMINE CHOND COMPLEX/MSM) Tablet 1 Tablet. Calcium Carb-Cholecalciferol (CALCIUM CARBONATE-VITAMIN D3) 600-400 MG-UNIT TABS 1 Capsule. Takes this without the vitamin d vitamin e 100 UNIT Capsule Take 1 Capsule by mouth in the morning. Calcium Carbonate Antacid 1000 MG Oral Tablet Chewable Take 400 mg by mouth as needed. amLODIPine Besylate 2.5 MG Oral Tablet (NORVASC) ProAir HFA 108 (90 Base) MCG/ACT Inhalation Aerosol Solution Inhale 2 Puffs by mouth 4 times a day.6.7 g 3 Clobetasol Propionate 0.05 % External Solution Apply topically to affected area 2 times a day. Apply to scalp and hair line - allow to soak in. 50 mL 0 Diclofenac Sodium 1 % External Gel (Voltaren) Apply topically to affected area. Apply tt left ankle Potassium Chloride ER 20 MEQ Oral Tablet Extended Release Take 1 Tablet by mouth in the morning and1 Tablet before bedtime. Ibuprofen 400 MG Oral Tablet (Motrin) Take 2 Tablets by mouth every 6 hours as needed. Melatonin 3-2 MG Oral Tablet Take by mouth. Magnesium Hydroxide 400 MG/5ML Oral Suspension (Milk of Magnesia) Take by mouth daily as needed forConstipation. Multi-Day Vitamins Oral Tablet Take 1 Tablet by mouth in the morning. Atorvastatin Calcium 40 MG Oral Tablet (Lipitor) Take 1 Tablet by mouth in the morning. 90 Tablet 5 Ipratropium [place] 0.03 % Nasal Solution 1 squirt each nostril in the afternoon and evening 30 mL 5 Esomeprazole Magnesium 40 MG Oral Capsule Delayed Release Take 1 Capsule by mouth daily before breakfast. 90 Capsule 3 Levothyroxine Sodium 75 MCG Oral Tablet (Levoxyl) Take 1 Tablet by mouth daily first thing in the morning. (at least 30 min prior to breakfast or other meds) 90 Tablet 3 B Complex (Folic Acid) Oral Tablet Take by mouth. Ondansetron HCl 8 MG Oral Tablet (Zofran) Take 1 Tablet by mouth every 8 hours as needed for Nausea. 20 Tablet 3 Montelukast Sodium 10 MG Oral Tablet (Singulair) Take 1 Tablet by mouth at bedtime. 90 Tablet 1 Triamcinolone Acetonide 0.1 % External Cream (Aristocort) Apply topically to affected area 2 times a day. To affected area. 30 g 1 Fluticasone Propionate 50 MCG/ACT Nasal Suspension (Flonase) Administer 2 Sprays into each nostril in the morning. 48 g 1 Loperamide HCl 2 MG Oral Tablet (Imodium A-D) Take by mouth. Melatonin 3 MG Oral Tablet Take by mouth. Pantoprazole Sodium 40 MG Oral Tablet Delayed Release (Protonix) Take by mouth daily. No current facility-administered medications for this visit. Social History: Social History Tobacco Use Smoking status: Former Passive exposure: Never Smokeless tobacco: Never Tobacco comments: smoked for three years at the age of 22 and than quit Vaping Use Vaping status: Never Used Substance Use Topics Alcohol use: Not Currently Drug use: No Comment: 4c coffee and tea Physical Exam: Temp 36.2 °C (97.1 °F) (Infrared ) | Wt 87.5 kg (193 lb) | BMI 32.12 kg/m² | BSA 2 m² General: alert, no distress, and well developed Heart: regular rate & rhythm and no gallops Lungs: clear to auscultation , no rales, wheezes or rhonchi Abdomen: abdomen soft, non-tender, and normal bowel sounds Musculoskeletal Exam: Good hip flexor strength noted on testing but did have trouble getting up on exam table because of leg weakness Deltoid strength was 5/5 Mild thoracic kyphosis Assessment: (M81.0) Senile osteoporosis (primary encounter diagnosis) 78 year old female with osteoporosis who is due for her 2nd Prolia but need a new Auth. Will work on authorization they will also update DEXA and blood work. Plan: The following items are ordered or are in progress: 1. Education: Osteoporosis education was provided by the [facility] team (topics included disease process, DXA, calcium/vitamin D, osteoporosis medications - including administration instructions and risks/benefits, weight bearing exercise, fall prevention/safety). The patient was provided with [facility] patient education instruction sheet(s): Prolia. 2. Prevention: . Fall Prevention/Safety Education recommended and discussed . Continue calcium rich foods (goal of 3 servings daily) 3. Osteoporosis Medications : Continue Prolia 60mg subcutaneous injection every 6 months 4. Bone Density Testing: due 2 year(s) from previous-ordered 5. Laboratory: 25-OH Vitamin D calcium creatinine 6. Followup: Return to clinic in a week or 2 for Prolia with nurses then will schedule a follow up in 7 months for Prolia then 1 year with provider Jamar Alvarez MD [facility] Team documented in this encounter Nursing Notes * Alondra Fisher LPN - 06/06/2024 10:53 AM EDT Chief Complaint Patient presents with Rheum Follow Up Follow up - [facility] documented in this encounter Plan of Treatment Upcoming Encounters Date Type Department Care Team (Late st Contact Info) Description 08/10/2024 2:30 PM EDT Office Visit Otolaryngology [facility] [address] [place] [address] Hal Padilla, DO [address] [place] [address] 09/14/2024 8:30 AM EDT Office Visit [facility] [address] [facility] [address] [place] [phone] Magda Taylor, DO [address] [place] [address] 11/27/2024 2:00 PM EDT Imaging Radiology [facility] [address] [place] [phone] 12/26/2024 11:30 AM EDT [facility] [address] [place] [phone] Magda Taylor, DO [address] [place] [address] 01/09/2025 1:30 PM EST Nurse [facility] [address] [place] [phone] Ty, Nurse Sue [facility] [address] [place] [address] 07/12/2025 11:30 AM EDT Office Visit Rheumatology [facility] [address] [place] [phone] Pito Alfredo PA-C [address] [place] [address] Pending Results Name Type Priority Associated Diagnoses Date /Time CREATININE Lab Routine Senile osteoporosis 06/06/2024 2:44 PM EDT CALCIUM Lab Routine Senile osteoporosis 06/06/2024 2:44 PM EDT 25-HYDROXY VITAMIN D Lab Routine Senile osteoporosis 06/06/2024 2:44 PM EDT Scheduled Orders Name Type Priority Associated Diagnoses Orde r Schedule CREATININE Lab Routine Senile osteoporosis Expected: 06/06/2024, Expires: 06/06/2025 CALCIUM Lab Routine Senile osteoporosis Expected: 06/06/2024, Expires: 06/06/2025 25-HYDROXY VITAMIN D Lab Routine Senile osteoporosis Expected: 06/06/2024, Expires: 06/06/2025 DEXA SCAN/BONE MINERAL AXIAL Medical Imaging Routine Senile osteoporosis Expected: 06/06/2024, Expires: 07/06/2025 Scheduled Procedures Name Priority Associated Diagnoses Date/Ti [...] SMARTSET #[id number]) 04/13/2024 DXA Scan 09/21/2024 09/21/2022, 070 08/2020, 08/09/2018, Additional history exists Depression Screening 01/16/2025 01/17/2024 GFR 04/27/2025 04/27/2024, 01/05, 10/06/2023, Additional history exists TSH 04/27/2025 04/27/2024, 08/0 03/2023, 04/02/2023, Additional history exists Albumin/Creatinine Ratio 01/16/2027 01/17/2024 Colonoscopy 05/29/2027 05/28/2022, 07/06, 12/08/2018, Additional history exists DTap/Tdap Vaccines (2 - Td or Tdap) 12/28/2028 12/28/2018, 12/22/2004 Zoster Vaccines Discontinued 05/09/2019 RETIRED - COLONOSCOPY-EVERY 5 YRS AGES 18-100 Discontinued 05/28/2022, 08/01/2020, 12/08/2018, Additional history exists VITAMIN D LEVEL ONCE IN A LIFETIME-USE SMARTSET# [id number] Completed 10/06/2023, 04/13/2023, 01/18/2018, Additional history exists Influenza Vaccine (FLU shot) Completed 11/19/2023, 12/11/2022, 11/21/2021, Additional history exists HPV (Gardasil) Vaccine Aged [...] as of this encounter Visit Diagnoses Diagnosis Senile osteoporosis- Primary documented in this encounter Additional Health Concerns [...] Directives occurred with: Not Discussed Care Teams Mushroom Growing Supervisor Relationship Specialty Start Date End Date Magda Taylor DO [address] [place] [id number] PCP - General Family Medicine 11/02/18 documented as of this encounter"
--- OUTSIDE RECORDS SUMMARY | 2024-06-18 20:47 | External Medical Summary ---
Author Name Unknown Address Unknown Organization K01:[facility] - [address] [place] [address] Laboratory Report Ordering Provider Test Date Status MOHSEN LANG 06/06/2024 14:44:24 Final Observation Date Value Abnormality Reference (Units ) Status Creatinine 06/06/2024 14:44:24 0.7 0.5-1.0 (mg/dL) Final Glomerular filtration rate/1.73 sq M.predicted [Volume Rate/Area] in Serum, Plasma or Blood by Creatinine-based formula (CKD-EPI) 06/06/2024 14:44:24 89 >=60 (mL/min) Final eGFR is calculated based on the CKD-EPI 2020 equation. Performing Location [facility] - [address] [place] [id number]
--- OUTSIDE RECORDS SUMMARY | 2024-06-18 20:47 | External Medical Summary | Summary of Care ---
Author Name Unknown Organization [facility] Address [address] [facility] [place] [address] Phone [phone] Care Team Providers Care Route Sales Specialist Name Role Phone Antoniashayy Magda Baker Primary Care Provider [phone] Reason for Visit * Reason Comments Outpatient Testing Encounter Details Date Type Department Care Team (Late st Contact Info) Description 06/06/2024 2:40 PM EDT [facility], [address] [facility] [address] [facility] [place] [phone] [facility] [address] [facility] [place] [address] Senile osteoporosis Allergies Active Allergy Reactions Criticality Noted Date [...] MCG/ACT nasal sprayIndications: Chronic rhinitis Administer 1 [place] into nostril 2 times a day. Use [...] morning. 90 Tablet 5 4 Active Ipratropium [place] 0.03 % Nasal SolutionIndicatio ns:Chronic rhinitis 1 [...] amlodipine 10mg Hyponatremia 01/18/2018 Overview (01/18/2018): Enio RenteriaHoBbrszku-2802-jg Na Cl 1gm bid Factor 5 Leiden [...] 08/23-+2.5/-2.1--L-m R-consider dc actonel ( st ? [id number] then saw Ansley) Irritable bowel syndrome 04/15/2003 [...] of cervix 01/18/2018 11/27/2018 Overview (01/18/2018): Neg 12/22 per pt DrMcCleary Retinal edema [...] mRNA, LNP-s, No Pre serve, 2-Dose Series (RNDOMN) 12/25/2020,05/03/2020,04/12/2020 Pneumococcal Conjugate Vacc, 13 Valent (Prevnar) [...] James Hidalgo RN documented in this encounter Plan of Treatment Upcoming Encounters Date Type Department Care Team (Late st Contact Info) Description 08/10/2024 2:30 PM EDT Office Visit Otolaryngology [facility] [address] [place] [address] Hal Padilla, DO [address] [place] [address] 09/14/2024 8:30 AM EDT Office Visit [facility] [address] [place] [phone] Magda Taylor, DO [address] [place] [address] 11/27/2024 2:00 PM EDT Imaging Radiology [facility] [address] [place] [phone] 12/26/2024 11:30 AM EDT Office Visit [facility] Fel[address] [place] [phone] Magda Taylor, DO [address] [place] [address] 01/09/2025 1:30 PM EST Nurse Only Rheumatology [facility] [address] [place] [phone] Nurse Sue Tys [address] [employer] [place] [address] 07/12/2025 11:30 AM EDT Office Visit Rheumatology [facility], [place] [address] [place] [phone] Pito Alfredo PA-C [address] [employer] [place] [address] Pending Results Name Type Priority Associated Diagnoses Date /Time CREATININE Lab Routine Senile osteoporosis 06/06/2024 2:44 PM EDT CALCIUM Lab Routine Senile osteoporosis 06/06/2024 2:44 PM EDT 25-HYDROXY VITAMIN D Lab Routine Senile osteoporosis 06/06/2024 2:44 PM EDT Scheduled Procedures Name Priority Associated Diagnoses [...] SMARTSET #1146) 04/13/2024 DXA Scan 09/21/2024 09/21/2022, 0708/2020, 08/09/2018, Additional history exists Depression Screening 01/16/2025 01/17/2024 GFR 04/27/2025 04/27/2024, 01/05, 10/06/2023, Additional history exists TSH 04/27/2025 04/27/2024, 0803/2023, 04/02/2023, Additional history exists Albumin/Creatinine Ratio 01/16/2027 01/17/2024 Colonoscopy 05/29/2027 05/28/2022, 07/06, 12/08/2018, Additional history exists DTap/Tdap Vaccines (2 - Td or Tdap) 12/28/2028 12/28/2018, 12/22/2004 Zoster Vaccines Discontinued 05/09/2019 RETIRED - COLONOSCOPY-EVERY 5 YRS AGES 18-100 Discontinued 05/28/2022, 08/01/2020, 12/08/2018, Additional history exists VITAMIN D LEVEL ONCE IN A LIFETIME-USE SMARTSET# [id number] Completed 10/06/2023, 04/13/2023, 01/18/2018, Additional history exists [...] of this encounter Visit Diagnoses Diagnosis Senile osteoporosis documented in this encounter Additional Health Concerns [...] Directives occurred with: Not Discussed Care Teams Route Sales Specialist Relationship Specialty Start Date End Date Magda Taylor DO [address] [place] [address] PCP - General Family Medicine 11/02/18 documented as of this encounter
--- OUTSIDE RECORDS SUMMARY | 2024-06-18 20:48 | External Medical Summary ---
Author Name Unknown Address Unknown Organization K01:[facility] [place] [address] [facility] [address] Laboratory Report Ordering Provider Test Date Status ELOY SANTANA 05/29/2024 12:23:24 Final Observation Date Value Abnormality Reference (Units ) Status Color of Urine by Auto 05/29/2024 12:23:24 Yellow Colorless, Light Yellow, Yellow, Dark Yellow Final Clarity, Urine 05/29/2024 12:23:24 Clear Clear Final Glucose [Mass/volume] in Urine by Automated test strip 05/29/2024 12:23:24 Negative Negative (mg/dL) Final Bilirubin.total [Presence] in Urine by Automated test strip 05/29/2024 12:23:24 Negative Negative Final Ketones [Mass/volume] in Urine by Automated test strip 05/29/2024 12:23:24 Negative Negative (mg/dL) Final Specific gravity, Urine 05/29/2024 12:23:24 1.014 1.003-1.030 Final Hemoglobin [Presence] in Urine by Automated test strip 05/29/2024 12:23:24 Negative Negative Final pH, Urine 05/29/2024 12:23:24 7.5 5.0-7.5 (Units) Final Protein [Mass/volume] in Urine by Automated test strip 05/29/2024 12:23:24 Negative Negative (mg/dL) Final Urobilinogen [Mass/volume] in Urine by Automated test strip 05/29/2024 12:23:24 Normal Normal (mg/dL) Final Nitrite [Presence] in Urine by Automated test strip 05/29/2024 12:23:24 Negative Negative Final Leukocyte esterase [Presence] in Urine by Automated test strip 05/29/2024 12:23:24 Trace Abnormal Negative Final RBC, Urine 05/29/2024 12:23:24 0-2 0-2 (/HPF) Final WBC, Urine 05/29/2024 12:23:24 0-2 0-2 (/HPF) Final Bacteria [#/area] in Urine sediment by Microscopy high power field 05/29/2024 12:23:24 0-25 0-25 (/HPF) Final Transitional cells [#/area] in Urine sediment by Microscopy high power field 05/29/2024 12:23:24 1-4 Abnormal None (/HPF) Final CULTURE, URINE - [facility] 05/29/2024 12:23:24 Final Culture not indicated by uri nalysis results\X09\ Performing Location [facility] [place] [address] [facility] [address]
--- OUTSIDE RECORDS SUMMARY | 2024-06-18 20:48 | External Medical Summary | Summary of Care ---
Author Name Unknown Organization [facility] Address [address] [facility] [place] [address] Phone [phone] Care Team Providers Care Milk Vendor Name Role Phone Daily Taylor DO Primary Care Provider Reason for Visit * Reason Onset Date Comments Medication Refill 06/04/2024 Encounter Details Date Type Department Care Team (Late st Contact Info) Description 06/04/2024 Refill [facility] [address] [facility] [place] [phone] Daily Taylor DO [address] [place] [address] Allergies Active Allergy Reactions Criticality Noted Date [...] MCG/ACT nasal sprayIndications :Chronic rhinitis Administer 1 [place] into nostril 2 times a day. Use [...] to soak in. 50 mL 1 Active Famotidine 20 MG Oral Tablet (Pepcid)Indicati ons:Gastroesopha geal reflux disease without esophagitis Take 1 Tablet by mouth in the morning and 1 Tablet before bedtime. 180 Tablet 3 3 Active Diclofenac Sodium 1 % External Gel [...] morning. 90 Tablet 5 4 Active Ipratropium [place] 0.03 % Nasal SolutionIndicati ons:Chronic rhinitis 1 [...] the morning. 48 g 1 5 Active Fluticasone Propionate 50 MCG/ACT Nasal Suspension (Flonase) Administer 2 Sprays into each nostril in the morning. 16 g 1 3 025 Discontin ued(Refil l) documented as of this encounter (statuses as [...] amlodipine 10mg Hyponatremia 01/18/2018 Overview (01/18/2018): Enio RenteriaFsEsherog-5665-tu Na Cl 1gm bid Factor 5 Leiden [...] 08/23-+2.5/-2.1--L-m R-consider dc actonel ( st ? 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 Mild intermittent asthma without complication Overview (01/18/2018): singulair documented as of this encounter (statuses as of 06/06/2024) Resolved Problems Problem Noted Date Diagnosed Date Resolved Date History of mammogram 01/18/2018 019 Overview (01/18/2018): Neg 11/22 per pt History of Papanicolaou smear of cervix 01/18/2018 11/27/2018 Overview (01/18/2018): Neg 12/[facility] Ret[facility] 02/06/2010 01/18/2018 Open wound of [...] mRNA, LNP-s, No Pre serve, 2-Dose Series (SurfAir) 12/25/2020,05/03/2020,04/12/2020 Pneumococcal Conjugate Vacc, 13 Valent (Prevnar) [...] Assessment Author No 04/02/2023 6:29 PM James Hidalgo, ERNA * Are you blind or do you have serious difficulty seeing, even when wearing glasses? Answer Date of Assessment Author No 04/02/2023 6:29 PM James Hidalgo, ERNA * Do you have serious difficulty walking or climbing stairs? (5 years old or older) Answer Date of Assessment Author Yes 04/02/2023 6:29 PM James Hidalgo, RN * Do you have difficulty dressing or bathing? (5 years old or older) Answer Date of Assessment Author Yes 04/02/2023 6:29 PM James Hidalgo, ERNA * Because of a physical, mental, or emotional condition, do you have difficulty doing errands alone such as visiting a doctor’s office or shopping? (15 years old or older) Answer Date of Assessment Author Yes 04/02/2023 6:29 PM James Hidalgo, ERNA documented as of this encounter Mental Status * Because of a physical, mental, or emotional condition, do you have serious difficulty concentrating, remembering, or making decisions? (5 years old or older) Answer Entry Date Author Yes 04/02/2023 6:29 PM James Hidalgo, ERNA documented in this encounter Miscellaneous Notes * Telephone Encounter - Daily Taylor DO - 06/06/2024 7:51 AM EDTSigned Prescriptions: Disp Refills Fluticasone Propionate 50 MCG/ACT Nasal [place]ks*48 g 1 Sig: Administer 2 Sprays into each nostril in the morning. Authorizing Provider: DAILY TAYLOR * Telephone Encounter - Melva Liriano RPh - 06/06/2024 7:48 AM EDTPending Prescriptions: Disp Refills Fluticasone Propionate 50 MCG/ACT Nasal Sparks*48 g 1 Sig: Administer 2 Sprays into each nostril in the morning. * Telephone Encounter - Melva Liriano RPh - 06/06/2024 7:48 AM EDT Last sent 11/11/22. Patient requesting 90 day supply. Pended. Please approve if appropriate. Did you pend patient's preferred pharmacy and medication before forwarding?yes Pharmacy: [facility] [place] Pending Prescriptions: Disp Refills Fluticasone Propionate 50 MCG/ACT Nasal S*48 g 1 Sig: Administer 2 Sprays into each nostril in the morning. Last Visit: 06/04/2024 (in office), Visit date not found (telemedicine) Next Visit: 09/14/2024 If no future appointments scheduled, and last appointment is greater than a year ago, please schedule patient for a follow-up appointment Last date the medication was ordered: 11/11/22 Is this request for a controlled substance?No Urine Drug Screen:No results found for this or any previous visit. Patient Phone Numbers Labs: Lab Results Component Value Date/Time CREAT 0.9 04/27/2024 01:25 PM CREAT 0.6 10/30/2021 12:00 AM CREAT 0.7 01/25/2020 01:02 PM POTASSIUM 4.5 04/27/2024 01:25 PM POTASSIUM 5.1 01/25/2020 01:02 PM TSH 1.87 04/27/2024 01:25 PM TSH 4.39 (H) 01/25/2020 01:02 PM LDL 71 06/23/2022 09:59 AM LDL 77 12/12/2019 09:42 AM ALT 28 01/17/2024 12:10 PM ALT 14 01/18/2018 04:20 PM documented in this encounter Plan of Treatment Upcoming Encounters Date Type Department Care Team (Late st Contact Info) Description 06/06/2024 11:00 AM EDT Office Visit Rheumatology [facility] [address] [place] [phone] Jamar Alvarez MD [address] [facility] [place] [address] 08/10/2024 2:30 PM EDT Office Visit Otolaryngology [facility] [address] [place] [address] Hal Padilla, DO [address] [place] [address] 09/14/2024 8:30 AM EDT [facility] [address] [place] [phone] Daily Taylor, DO [address] [place] [address] 12/26/2024 11:30 AM EDT [facility] [address] [place] [phone] Daily Taylor, DO [address] [place] [address] Scheduled Procedures Name Priority Associated Diagnoses Date/Ti [...] SMARTSET #1146) 04/13/2024 DXA Scan 09/21/2024 09/21/2022, 08/2020, 08/09/2018, Additional history exists Depression Screening 01/16/2025 01/17/2024 GFR 04/27/2025 04/27/2024, 01/05, 10/06/2023, Additional history exists TSH 04/27/2025 04/27/2024, 08/0 03/2023, 04/02/2023, Additional history exists Albumin/Creatinine Ratio 01/16/2027 01/17/2024 Colonoscopy 05/29/2027 05/28/2022, 05/2 10/2020, 12/08/2018, Additional history exists DTap/Tdap Vaccines (2 - Td or Tdap) 12/28/2028 12/28/2018, 12/22/2004 Zoster Vaccines Discontinued 05/09/2019 RETIRED - COLONOSCOPY-EVERY 5 YRS AGES 18-100 Discontinued 05/28/2022, 08/01/2020, 12/08/2018, Additional history exists VITAMIN D LEVEL ONCE IN A LIFETIME-USE SMARTSET# [id number] Completed 10/06/2023, 04/13/2023, 01/18/2018, Additional history exists [...] Directives occurred with: Not Discussed Care Teams Milk Vendor Relationship Specialty Start Date End Date Daily Taylor DO [address] [place] [address] PCP - General Family Medicine 11/02/18 documented as of this encounter
--- OUTSIDE RECORDS SUMMARY | 2024-06-18 20:48 | External Medical Summary | Summary of Care ---
Author Name Unknown Organization [facility] Address [address] [facility] [place] [address] Phone [phone] Care Team Providers Care Detective Bureau Chief Name Role Phone Antoniashayy Magda Baker Primary Care Provider Reason for Visit * Reason Comments Outpatient Testing Encounter Details Date Type Department Care Team (Late st Contact Info) Description 05/29/2024 12:30 PM EDT Laboratory Laboratory, [address] [facility] [place] [phone] [facility] [address] [facility] [place] [address] Arrived Allergies Active Allergy Reactions Criticality Noted Date [...] as of this encounter (statuses as of 05/29/2024) Medications ASPIRIN 325 MG PO TABS 1 daily Active acetaminophen (TYLENOL) 500 MG Tablet Take 2 Tablets by mouth in the morning and 2 Tablets before bedtime. 100 Tab 8 Active Azelastine-Flutic asone (DYMISTA) 137-50 MCG/ACT nasal sprayIndications: Chronic rhinitis Administer 1 [place] into nostril 2 times a day. Use [...] to soak in. 50 mL 1 Active Fluticasone Propionate 50 MCG/ACT Nasal Suspension (Flonase) Administer 2 Sprays into each nostril in the morning. 16 g 1 3 Active Famotidine 20 MG Oral Tablet (Pepcid)Indicatio [...] morning. 90 Tablet 5 4 Active Ipratropium [place] 0.03 % Nasal SolutionIndicatio ns:Chronic rhinitis 1 [...] at bedtime. 90 Tablet 1 5 Active Cephalexin 500 MG Oral Capsule (Keflex)Indicatio ns:Acute UTI Take 1 Capsule by mouth in the morning and 1 Capsule before bedtime. 14 Capsule 5 Active documented as of this encounter (statuses as of 05/29/2024) Active Problems Problem Noted Date Diagnosed Date [...] amlodipine 10mg Hyponatremia 01/18/2018 Overview (01/18/2018): Enio RenteriaBcIymrbpy-5832-ef Na Cl 1gm bid Factor 5 Leiden [...] 08/23-+2.5/-2.1--L-m R-consider dc actonel ( st ? 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 Mild intermittent asthma without complication Overview (01/18/2018): singulair documented as of this encounter (statuses as of 05/29/2024) Resolved Problems Problem Noted Date Diagnosed Date Resolved Date History of mammogram 01/18/2018 019 Overview (01/18/2018): Neg / per pt History of Papanicolaou smear of cervix 01/18/2018 11/27/2018 Overview (01/18/2018): Neg / per pt DrMcCleary Retinal edema 02/06/2010 01/18/2018 [...] NONALLERGIC RHINITIS 09/11/2002 019 Overview (01/18/2018): On astelin,rohannase,atrovent NS AC SUPP OTITIS MEDIA, RIGHT 05/22/2002 07/09/2003 AC MAXILLARY SINUSITIS 10/11/200107/08 ACUTE URI NOS 10/11/2001 07/09/2003 Urinary frequency 11/27/2018 documented as of this encounter (statuses as of 05/29/2024) Immunizations Name Administration Dates Next Due COVID-19 mRNA, LNP-s, No Pre serve, 2-Dose Series (Sharetivity) 12/25/2020,05/03/2020,04/12/2020 Pneumococcal Conjugate Vacc, 13 Valent (Prevnar) [...] Team (Late st Contact Info) Description 06/04/2024 12:00 PM EDT [facility] [address] [place] [phone] Harlan Gotti PA-C [address] [place] [address] 06/27/2024 3:40 PM EDT Office Visit Rheumatology [facility] [address] [place] [phone] Jamar Alvarez MD [address] [facility], [place] [address] 08/10/2024 2:30 PM EDT Office Visit Otolaryngology [facility] [address] [place] [address] Hal Padilla, [address] [place] [address] 09/14/2024 8:30 AM EDT [facility] [address] [place] [phone] Magda Taylor DO [address] [place] [address] 12/26/2024 11:30 AM EDT [facility] [place] [phone] Magda Taylor, DO [address] [place] [address] Scheduled Procedures Name Priority Associated Diagnoses Date/Ti [...] 10/06/2023, Additional history exists TSH 04/27/2025 04/27/2024, 03/2023, 04/02/2023, Additional history exists Albumin/Creatinine Ratio 01/16/2027 01/17/2024 Colonoscopy 05/29/2027 05/28/2022, 07/06, 12/08/2018, Additional history exists DTap/Tdap Vaccines (2 - Td or Tdap) 12/28/2028 12/28/2018, 12/22/2004 Zoster Vaccines Discontinued 05/09/2019 RETIRED - COLONOSCOPY-EVERY 5 YRS AGES 18-100 Discontinued 05/28/2022, 08/01/2020, 12/08/2018, Additional history exists VITAMIN D LEVEL ONCE IN A LIFETIME-USE SMARTSET# [id number] Completed 10/06/2023, 04/13/2023, 01/18/2018, Additional history exists [...] Directives occurred with: Not Discussed Care Teams Detective Bureau Chief Relationship Specialty Start Date End Date Magda Taylor DO [address] [place] [address] PCP - General Family Medicine 11/02/18 documented as of this encounter
--- OUTSIDE RECORDS SUMMARY | 2024-06-18 20:48 | External Medical Summary | Summary of Care ---
Author Name Unknown Organization [facility] Address [address] [facility] [address] Phone [phone] Care Team Providers Care Car Shifter Name Role Phone Robmarcellus Magda Baker Primary Care Provider Reason for Visit * Reason Comments Outpatient Testing Encounter Details Date Type Department Care Team (Late st Contact Info) Description 05/28/2024 12:40 PM EDT Laboratory [facility], [address] [facility] [address] [facility] [address] [facility] [address] [facility] [place] [address] Acute cystitis with hematuria Allergies Active Allergy Reactions Criticality Noted Date [...] as of this encounter (statuses as of 05/28/2024) Medications ASPIRIN 325 MG PO TABS 1 daily Active acetaminophen (TYLENOL) 500 MG Tablet Take 2 Tablets by mouth in the morning and 2 Tablets before bedtime. 100 Tab 8 Active Azelastine-Flutic asone (DYMISTA) 137-50 MCG/ACT nasal sprayIndications: Chronic rhinitis Administer 1 [place] into nostril 2 times a day. Use [...] morning. 90 Tablet 5 4 Active Ipratropium [place] 0.03 % Nasal SolutionIndicatio ns:Chronic rhinitis 1 [...] as of this encounter (statuses as of 05/28/2024) Active Problems Problem Noted Date Diagnosed Date [...] amlodipine 10mg Hyponatremia 01/18/2018 Overview (01/18/2018): Enio RenteriaUxSicfbvg-0445-pb Na Cl 1gm bid Factor 5 Leiden [...] 08/23-+2.5/-2.1--L-m R-consider dc actonel ( st ? 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 Mild intermittent asthma without complication Overview (01/18/2018): singulair documented as of this encounter (statuses as of 05/28/2024) Resolved Problems Problem Noted Date Diagnosed Date [...] NONALLERGIC RHINITIS 09/11/2002 019 Overview (01/18/2018): On astjatinder,jasone,atrovent NS AC SUPP OTITIS MEDIA, RIGHT 05/22/2002 07/09/2003 AC MAXILLARY SINUSITIS 10/11/200107/08 ACUTE URI NOS 10/11/2001 07/09/2003 Urinary frequency 11/27/2018 documented as of this encounter (statuses as of 05/28/2024) Immunizations Name Administration Dates Next Due COVID-19 mRNA, LNP-s, No Pre serve, 2-Dose Series (TrueView) 12/25/2020,05/03/2020,04/12/2020 Pneumococcal Conjugate Vacc, 13 Valent (Prevnar) [...] Description 06/04/2024 12:00 PM EDT [facility] [address] [place] [phone] Harlan Gotti PA-C [address] [place] [address] 06/27/2024 3:40 PM EDT Office Visit Rheumatology [facility] [address] [place] [phone] Jamar Alvarez MD [facility], [place] [address] 08/10/2024 2:30 PM EDT Office Visit Otolaryngology [facility] [address] [address] Hal Padilla DO [address] [place] [address] 09/14/2024 8:30 AM EDT Office Visit [facility] [address] [place] [phone] Magda Taylor DO [address] [place] [address] 12/26/2024 11:30 AM EDT [facility] [place] Terri Iyer [address] [place] [phone] Magda Taylor, DO [address] [place] [address] Pending Results Name Type Priority Associated Diagnoses Date /Time URINALYSIS, REFLEX TO CULTURE (NOT FOR NEUTROPENIC PATIENTS) Lab Routine Acute cystitis with hematuria 05/28/2024 12:29 PM EDT Scheduled Orders Name Type Priority Associated Diagnoses Orde r Schedule URINALYSIS, REFLEX TO CULTURE Lab Routine Acute cystitis with hematuria Ordered: 05/28/2024 Scheduled Procedures Name Priority Associated Diagnoses Date/Ti [...] 10/06/2023, Additional history exists TSH 04/27/2025 04/27/2024, 080 03/2023, 04/02/2023, Additional history exists Albumin/Creatinine Ratio 01/16/2027 01/17/2024 Colonoscopy 05/29/2027 05/28/2022, 07/06, 12/08/2018, Additional history exists DTap/Tdap Vaccines (2 - Td or Tdap) 12/28/2028 12/28/2018, 12/22/2004 Zoster Vaccines Discontinued 05/09/2019 RETIRED - COLONOSCOPY-EVERY 5 YRS AGES 18-100 Discontinued 05/28/2022, 08/01/2020, 12/08/2018, Additional history exists VITAMIN D LEVEL ONCE IN A LIFETIME-USE SMARTSET# [id number] Completed 10/06/2023, 04/13/2023, 01/18/2018, Additional history exists [...] Procedure Name Priority Date/Time Associated Diagnosis Comments URINALYSIS, REFLEX TO CULTURE (CUP ONLY) Routine 05/28/2024 12:29 PM EDT Acute cystitis with hematuria documented in this encounter Results * URINALYSIS, REFLEX TO CULTURE (CUP ONLY) (05/28/2024 12:29 PM EDT) Urinalysis, Reflex to Culture Specimen Specimen collected and received 05/28/2024 2:01 PM EDT [facility] Urine specimen obtained by clean catch procedure / Unknown Non-blood Collection / Unknown 05/28/2024 12:29 PM EDT 05/28/2024 12:29 PM EDT Alonso Rowe PA-C LAB URINE ORDERABLES F inal Result [facility] [address] [place] [address] documented in this encounter Visit Diagnoses Diagnosis Acute cystitis with hematuria Acute cystitis documented in this encounter Additional Health Concerns [...] Directives occurred with: Not Discussed Care Teams Car Shifter Relationship Specialty Start Date End Date Magda Taylor DO [address] [place] [address] PCP - General Family Medicine 11/02/18 documented as of this encounter
--- OUTSIDE RECORDS SUMMARY | 2024-06-18 20:48 | External Medical Summary | Summary of Care ---
Author Name Unknown Organization [facility] Address [address] [facility] [address] Phone [phone] Care Team Providers Care Candle Molder Machine Name Role Phone Robmarcellus Magda Baker Primary Care Provider [phone] Reason for Visit * Reason Comments Outpatient Testing Encounter Details Date Type Department Care Team (Late st Contact Info) Description 05/28/2024 12:40 PM EDT [facility] [address] [facility] [place] [address] [facility] [address] [facility] [place] [address] Acute cystitis with hematuria Allergies Active Allergy [...] MCG/ACT nasal sprayIndications: Chronic rhinitis Administer 1 [place] into nostril 2 times a day. Use [...] morning. 90 Tablet 5 4 Active Ipratropium [place] 0.03 % Nasal SolutionIndicatio ns:Chronic rhinitis 1 [...] amlodipine 10mg Hyponatremia 01/18/2018 Overview (01/18/2018): Enio RenteriaVpCjgyqny-3916-wl Na Cl 1gm bid Factor 5 Leiden [...] 08/23-+2.5/-2.1--L-m R-consider dc actonel ( st ? [id number] then saw Ansley) Irritable bowel syndrome 04/15/2003 [...] mRNA, LNP-s, No Pre serve, 2-Dose Series ([employer]) 12/25/2020,05/03/2020,04/12/2020 Pneumococcal Conjugate Vacc, 13 Valent (Prevnar) [...] Description 06/04/2024 12:00 PM EDT [facility] [address] [place] [phone] Harlan Gotti PA-C [address] [place] [address] 06/27/2024 3:40 PM EDT Office Visit Rheumatology [facility] [address] [place] [phone] Jamar Alvarez MD [facility], [place] [address] 08/10/2024 2:30 PM EDT Office Visit Otolaryngology [facility] [address] [place] [address] Hal Padilla DO [address] [place] [address] 09/14/2024 8:30 AM EDT Office Visit [facility] Felipe Logan [address] [place] [phone] Magda Taylor DO [address] [place] [place] [address] 12/26/2024 11:30 AM EDT Office Visit [facility] [place] Terri Iyer [address] [phone] Magda Taylor, DO [address] [place] [address] Pending Results Name Type Priority Associated Diagnoses [...] D LEVEL ONCE IN A LIFETIME-USE SMARTSET# [id number] Completed 10/06/2023, 04/13/2023, 01/18/2018, Additional history exists [...] [facility] [address] [place] [address] documented in this encounter Visit [...] Directives occurred with: Not Discussed Care Teams Candle Molder Machine Relationship Specialty Start Date End Date Magda Taylor DO [address] [place] [address] PCP - General Family Medicine 11/02/18 documented as of this encounter
--- OUTSIDE RECORDS SUMMARY | 2024-06-18 20:48 | External Medical Summary | Summary of Care ---
Author Name Unknown Organization [facility] Address [address] [facility] [address] Phone [phone] Care Team Providers Care Weight Reduction Specialist Name Role Phone Claudia Magda Samuel DO Primary Care Provider Reason for Visit * Reason Comments Acute Patient is here with concerns about a itchy rash on her back for the past week that she has been scratching open. Encounter Details Date Type Department Care Team (Late st Contact Info) Description 06/04/2024 12:00 PM EDT Office Visit [facility] Col[place]is Iyer [address] [place] [place] [phone] Harlan Gotti PA-C [address] [phone] Dermatitis* Allergies Active Allergy Reactions Criticality Noted Date [...] as of this encounter (statuses as of 06/04/2024) Medications ASPIRIN 325 MG PO TABS 1 daily Active acetaminophen (TYLENOL) 500 MG Tablet Take 2 Tablets by mouth in the morning and 2 Tablets before bedtime. 100 Tab 8 Active Azelastine-Fluti casone (DYMISTA) 137-50 MCG/ACT nasal sprayIndications :Chronic rhinitis Administer 1 [place] into nostril 2 times a day. Use [...] 3 Active Famotidine 20 MG Oral Tablet (Pepcid)Indicati [...] morning. 90 Tablet 5 4 Active Ipratropium [place] 0.03 % Nasal SolutionIndicati ons:Chronic rhinitis 1 [...] affected area. 30 g 1 5 Active Cephalexin 500 MG Oral Capsule (Keflex)Indicati ons:Acute UTI Take 1 Capsule by mouth in the morning and 1 Capsule before bedtime. 14 Capsule 5 025 Discontin ued(Medic ation List Clean Up) documented as of this encounter (statuses as of 06/04/2024) Active Problems Problem Noted Date Diagnosed Date [...] amlodipine 10mg Hyponatremia 01/18/2018 Overview (01/18/2018): Enio RenteriaGnGytvvzn-8080-yv Na Cl 1gm bid Factor 5 Leiden [...] 08/23-+2.5/-2.1--L-m R-consider dc actonel ( st ? 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] Sign Reading Time Taken Comments Blood Pressure 135/80 06/04/2024 11:17 AM EDT Pulse 71 06/04/2024 11:17 AM EDT Temperature 36.9 °C (98.4 °F) 06/04/2024 11:17 AM E DT Respiratory Rate 16 06/04/2024 11:17 AM EDT Oxygen Saturation 95% 06/04/2024 11:17 AM EDT Inhaled Oxygen Concentration - - Weight 87.5 kg (193 lb) 06/04/2024 11:17 AM EDT Height - - Body Mass [...] James Hidalgo RN documented in this encounter Progress Notes * Harlan Gotti PA-C - 06/04/2024 11:22 AM EDT Images from the original note were not included. Nursing Notes: Aniya Fernandez LPN 06/04/24 1120 Signed The patient has been properly identified by confirmation of name and date of . Chief Complaint Patient presents with Acute Patient is here with concerns about a itchy rash on her back for the past week that she has been scratching open. Subjective History of Present Illness Karina Palacios is a 78 year old female who presents with itchiness on her back and belly. She has been experiencing pruritus on her back and abdomen for approximately a week or more, leading to excoriation and erythema in some areas. The rash is located bilaterally on her abdomen and extends up her back. There have been no recent changes in laundry detergent, lotion, or environmental exposures that could have triggered the rash. No rash is present on her extremities. She is currently taking loratadine and Singulair daily for environmental allergies. She has not applied hydrocortisone or similar topical treatments to the rash. There are no new pets or environmental exposures at home. does not report any similar rash. She has a recent history of a urinary tract infection for which she completed a course of antibiotics. Her follow-up urine culture was negative, indicating resolution of the infection. The onset of itchiness may have coincided with the end of her cephalexin antibiotic treatment. Objective BP 135/80 | Pulse 71 | Temp 98.4 °F (36.9 °C) (Tympanic) | Resp 16 | Wt 193 lb (87.5 kg) | SpO2 95% | BMI 32.12 kg/m² | BSA 2 m² Physical Exam Vitals and nursing note reviewed. Constitutional: General: She is not in acute distress. Pulmonary: Effort: Pulmonary effort is normal. Skin: Comments: Diffuse mildly erythematous 1-2mm maculopapular rash on bilateral mid- low back > abdomen. No vesicles or pustules. +excoriations. Neurological: Mental Status: She is alert and oriented to person, place, and time. Psychiatric: Mood and Affect: Mood normal. Results reviewed : Urine Culture Assessment and Plan Assessment & Plan Dermatitis Presents with pruritus and erythema on the back and abdomen for one week. The rash is consistent with contact dermatitis, not urticaria or infection. No identifiable trigger; no changes in laundry detergent, lotion, or environmental exposures. Dry skin is noted. Currently on loratadine and montelukast, which may alleviate itching. Recent antibiotic use (cephalexin) for a urinary tract infection is unlikely related to the rash - Prescribe triamcinolone cream to be applied twice daily for up to two weeks. - Advise the use of moisturizers without scents and dyes. - Instruct to avoid scratching to prevent secondary infection. - Recommend cooler showers to reduce pruritus. - Continue current antihistamines. Urinary Tract Infection (UTI) - Resolved Completed a course of antibiotics for a urinary tract infection. Initial urine culture showed resistance to several antibiotics, but a follow-up urine culture was negative, indicating successful resolution of the infection. - No further action required as the UTI is resolved. Diagnoses & Orders: Dermatitis (Primary) - Triamcinolone Acetonide 0.1 % External Cream (Aristocort); Apply topically to affected area 2 times a day. To affected area. Wrap-Up Follow Up: Return if symptoms worsen or fail to improve. I spent a total of 20-29 minutes (exact time 20 mins) on the date of service in preparation, delivery, and documentation of the care provided to Karina Palacios excluding any time spent in the performance of separately billed services. Text in this note was generated using an [employer] documentation service. I discussed the use of a device to record and summarize our discussion today. All persons present during the encounter consented to its use. documented in this encounter Nursing Notes * Aniya Fernandez LPN - 06/04/2024 11:17 AM EDT The patient has been properly identified by confirmation of name and date of . Chief Complaint Patient presents with Acute Patient is here with concerns about a itchy rash on her back for the past week that she has been scratching open. documented in this encounter Plan of Treatment Upcoming Encounters Date Type Department Care Team (Late st Contact Info) Description 06/06/2024 11:00 AM EDT Office Visit Rheumatology [facility] [address] [phone] Jamar Alvarez MD [facility] [place] [address] 08/10/2024 2:30 PM EDT Office Visit Otolaryngology [facility] [address] [place] [address] Hal Padilla, [address] [place] [address] 09/14/2024 8:30 AM EDT Office Visit [facility], Felipe [address] [place] [phone] Magda Taylor, DO [address] [place] [address] 12/26/2024 11:30 AM EDT Office Visit [facility], Felipe Iyer [address] [place] [phone] Magda Taylor, DO [address] [place] [address] Scheduled Procedures Name Priority Associated Diagnoses Date/Ti [...] D LEVEL ONCE IN A LIFETIME-USE SMARTSET# [id number] Completed 10/06/2023, 04/13/2023, 01/18/2018, Additional history exists [...] as of this encounter Visit Diagnoses Diagnosis Dermatitis- Primary Contact dermatitis and other eczema, due to unspecified cause documented in this encounter Additional Health Concerns [...] Directives occurred with: Not Discussed Care Teams Weight Reduction Specialist Relationship Specialty Start Date End Date Magda Taylor DO [address] [address] PCP - General Family Medicine 11/02/18 documented as of this encounter"
--- OUTSIDE RECORDS SUMMARY | 2024-06-18 20:48 | External Medical Summary | Summary of Care ---
Author Name Unknown Organization [facility] Address [address] [facility] [address] Phone [phone] Care Team Providers Care Production Machinist Name Role Phone Robmarcellus Magda Baker Primary Care Provider Reason for Visit * Reason Comments Outpatient Testing Encounter Details Date Type Department Care Team (Late st Contact Info) Description 05/28/2024 12:40 PM EDT Laboratory [facility] [address] [facility] [place] [address] [facility] [address] [facility] [place] [address] Acute cystitis with hematuria Allergies Active Allergy [...] MCG/ACT nasal sprayIndications: Chronic rhinitis Administer 1 [place] into nostril 2 times a day. Use [...] morning. 90 Tablet 5 4 Active Ipratropium [place] 0.03 % Nasal SolutionIndicatio ns:Chronic rhinitis 1 [...] amlodipine 10mg Hyponatremia 01/18/2018 Overview (01/18/2018): Enio RenteriaQyVuqyzzt-1922-yn Na Cl 1gm bid Factor 5 Leiden [...] 08/23-+2.5/-2.1--L-m R-consider dc actonel ( st ? [id number] then saw Ansley) Irritable bowel syndrome 04/15/2003 [...] mRNA, LNP-s, No Pre serve, 2-Dose Series ([employer]) 12/25/2020,05/03/2020,04/12/2020 Pneumococcal Conjugate Vacc, 13 Valent (Prevnar) [...] Description 06/04/2024 12:00 PM EDT [facility] [address] [phone] Harlan Gotti PA-C [address] [address] 06/27/2024 3:40 PM EDT Office Visit Rheumatology [facility] [address] [place] [phone] Jamar Alvarez MD [facility], [place] [address] 08/10/2024 2:30 PM EDT Office Visit Otolaryngology [facility] [address] [place] [address] Hal Padilla DO [address] [place] [address] 09/14/2024 8:30 AM EDT Office Visit [facility] Felipe Logan [address] [phone] Magda Taylor DO [address] [address] 12/26/2024 11:30 AM EDT Office Visit [facility] [place] Terri Iyer [address] [place] [phone] Magda Taylor, DO [address] [address] Pending Results Name Type Priority Associated Diagnoses [...] D LEVEL ONCE IN A LIFETIME-USE SMARTSET# [id number] Completed 10/06/2023, 04/13/2023, 01/18/2018, Additional history exists [...] and received 05/28/2024 2:01 PM EDT [facility] [place] Urine specimen obtained by clean catch procedure / Unknown Non-blood Collection / Unknown 05/28/2024 12:29 PM EDT 05/28/2024 12:29 PM EDT Alonso Rowe PA-C LAB URINE ORDERABLES F inal Result [facility] [address] [place] [address] documented in this encounter Visit [...] Directives occurred with: Not Discussed Care Teams Production Machinist Relationship Specialty Start Date End Date Magda Taylor DO [address] [address] PCP - General Family Medicine 11/02/18 documented as of this encounter
--- OUTSIDE RECORDS SUMMARY | 2024-06-18 20:48 | External Medical Summary | Summary of Care ---
Author Name Unknown Organization [facility] Address [address] [facility] [place] [address] Phone [phone] Care Team Providers Care Appraiser Auditor Name Role Phone Antoniashayy Magda Baker Primary Care Provider Reason for Visit * Reason Comments Outpatient Testing Encounter Details Date Type Department Care Team (Late st Contact Info) Description 05/28/2024 1:50 PM EDT Laboratory Laboratory, [address] [facility] [place] [phone] [place], [facility] 226 [facility] [place] [address] Arrived Allergies Active Allergy Reactions Criticality Noted [...] nasal sprayIndications: Chronic rhinitis Administer 1 [place] into nostril 2 times a day. Use [...] morning. 90 Tablet 5 4 Active Ipratropium [place] 0.03 % Nasal SolutionIndicatio ns:Chronic rhinitis 1 [...] amlodipine 10mg Hyponatremia 01/18/2018 Overview (01/18/2018): Enio RenteriaFePltsmwz-5895-jf Na Cl 1gm bid Factor 5 Leiden [...] 08/23-+2.5/-2.1--L-m R-consider dc actonel ( st ? [id number] then saw Ansley) Irritable bowel syndrome 04/15/2003 [...] mRNA, LNP-s, No Pre serve, 2-Dose Series ([employer]) 12/25/2020,05/03/2020,04/12/2020 Pneumococcal Conjugate Vacc, 13 Valent (Prevnar) [...] Description 06/04/2024 12:00 PM EDT [facility] [address] [place] [phone] Harlan Gotti PA-C [address] [place] [address] 06/27/2024 3:40 PM EDT Office Visit Rheumatology [facility] [address] [place] [phone] Jamar Alvarez MD [address] [facility], [place] [address] 08/10/2024 2:30 PM EDT Office Visit Otol[facility] [address] [place] [address] Hal Padilla, [address] [place] [address] 09/14/2024 8:30 AM EDT [facility] [address] [phone] Magda Taylor DO [address] [address] 12/26/2024 11:30 AM EDT [facility] [address] [phone] Magda Taylor, DO [address] [address] Scheduled Procedures Name Priority Associated Diagnoses Date/Ti [...] D LEVEL ONCE IN A LIFETIME-USE SMARTSET# [id number] Completed 10/06/2023, 04/13/2023, 01/18/2018, Additional history exists [...] Directives occurred with: Not Discussed Care Teams Appraiser Auditor Relationship Specialty Start Date End Date Magda Taylor DO [address] [address] PCP - General Family Medicine 11/02/18 documented as of this encounter
--- OUTSIDE RECORDS SUMMARY | 2024-06-18 20:48 | External Medical Summary | Summary of Care ---
Author Name Unknown Organization [facility] Address [address] [address] Phone [phone] Care Team Providers Care Tying Machine Operator Name Role Phone Robmarcellus Magda Baker Primary Care Provider Reason for Visit * Reason Comments Outpatient Testing Encounter Details Date Type Department Care Team (Late st Contact Info) Description 05/28/2024 12:40 PM EDT [facility] [address] [facility] [place] [address] [facility] [address] [facility] [place] [address] Acute cystitis with hematuria Allergies Active Allergy [...] as of this encounter (statuses as of 05/30/2024) Medications ASPIRIN 325 MG PO TABS 1 daily Active acetaminophen (TYLENOL) 500 MG Tablet Take 2 Tablets by mouth in the morning and 2 Tablets before bedtime. 100 Tab 8 Active Azelastine-Flutic asone (DYMISTA) 137-50 MCG/ACT nasal sprayIndications: Chronic rhinitis Administer 1 [place] into nostril 2 times a day. Use [...] morning. 90 Tablet 5 4 Active Ipratropium [place] 0.03 % Nasal SolutionIndicatio ns:Chronic rhinitis 1 [...] as of this encounter (statuses as of 05/30/2024) Active Problems Problem Noted Date Diagnosed Date [...] amlodipine 10mg Hyponatremia 01/18/2018 Overview (01/18/2018): Enio RenteriaGkItudima-[id number]-mx Na Cl 1gm bid Factor 5 Leiden [...] 08/23-+2.5/-2.1--L-m R-consider dc actonel ( st ? 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 Mild intermittent asthma without complication Overview (01/18/2018): singulair documented as of this encounter (statuses as of 05/30/2024) Resolved Problems Problem Noted Date Diagnosed Date [...] NONALLERGIC RHINITIS 09/11/2002 019 Overview (01/18/2018): On astjatinder,harriett,oswaldovent NS AC SUPP OTITIS MEDIA, RIGHT 05/22/2002 07/09/2003 AC MAXILLARY SINUSITIS 10/11/200107/08 ACUTE URI NOS 10/11/2001 07/09/2003 Urinary frequency 11/27/2018 documented as of this encounter (statuses as of 05/30/2024) Immunizations Name Administration Dates Next Due COVID-19 mRNA, LNP-s, No Pre serve, 2-Dose Series ([employer]) 12/25/2020,05/03/2020,04/12/2020 Pneumococcal Conjugate Vacc, 13 Valent (Prevnar) 11/02/2018 Pneumococcal Conjugate Vacci ne, 7 Valent 11/14/2001 Season Influenza, Quad, PF, Adjuvanted, 65+ Yrs, IM (FLUAD) 12/12/2019 Seasonal Influenza Vac., MDV , IM, 0.5 mL (Fluzone) 01/08/2008,01/05/2007,01/06/2006,12/22,01/08/2003,12/19/2001 Seasonal Influenza, High Dos e, Trivalent, PF, IM (Fluzone HD) 11/19/2023 Seasonal Influenza, PF, 6 M & above, IM , (FluLaval or Fluzone) 11/27/2018 11/28/2019 Seasonal Influenza, Quadriva lent Hd (Fluzone Hd) 12/11/2022,11/21/2021,11/22/2020 Seasonal Influenza, Quadriva lent, No Preserve, IM 11/10/2017 TD - Tetanus/Diptheria (ADULT) 12/22/2004 TDAP (age 10 and older)(Boostrix) 12/28/2018 Zoster [...] documented in this encounter Miscellaneous Notes * Addendum Note - Jignesh Leggett TECH - 05/29/2024 10:11 PM EDTAddended by: JIGNESH LEGGETT on: 05/29/2024 10:11 PM Modules accepted: Orders documented in this encounter Plan of Treatment Upcoming Encounters Date Type Department Care Team (Late st Contact Info) Description 06/04/2024 12:00 PM EDT Office Visit [facility] [address] [facility] [place] [phone] Harlan Gotti PA-C 226 [facility] [place] [address] 06/27/2024 3:40 PM EDT Office Visit Rheumatology [facility] [address] [place] [phone] [facility] [address] [facility] [address] 08/10/2024 2:30 PM EDT Office Visit Otolaryngology [facility] [address] [place] [address] Hal Padilla DO [address] [place] [place] [address] 09/14/2024 8:30 AM EDT Office Visit [facility], Felipe [address]yer [address] [phone] Magda Taylor, DO [address] [address] 12/26/2024 11:30 AM EDT Office Visit [facility], Felipe [address] [phone] Magda Taylor DO [address] [address] Pending Results Name Type Priority Associated Diagnoses Date /Time CULTURE, URINE, QUANTITATIVE Lab Routine Acute cystitis with hematuria 05/29/2024 12:23 PM EDT Scheduled Procedures Name Priority Associated [...] D LEVEL ONCE IN A LIFETIME-USE SMARTSET# [id number] Completed 10/06/2023, 04/13/2023, 01/18/2018, Additional history exists [...] Associated Diagnosis Comments URINALYSIS, REFLEX TO CULTURE Routine 05/29/2024 12:23 PM EDT Acute cystitis with hematuria URINALYSIS, REFLEX TO CULTURE (CUP ONLY) Routine 05/28/2024 12:29 PM EDT Acute cystitis with hematuria URINALYSIS, REFLEX TO CULTURE (NOT FOR NEUTROPENIC PATIENTS) Routine 05/28/2024 12:29 PM EDT Acute cystitis with hematuria documented in this encounter Results * (ABNORMAL) URINALYSIS, REFLEX TO CULTURE (05/29/2024 12:23 PM EDT) Color, Urine Yellow Colorless, Light Yellow, Yellow, Dark Yellow 05/29/2024 11:09 PM EDT LABORATORY [facility] Clarity, Urine Clear Clear 05/29/2024 11:09 PM EDT LABORATORY C Glucose, Urine Negative Negative mg/dL 05/29/2024 11:09 PM EDT [facility] Bilirubin, Urine Negative Negative 05/30/19 11:09 PM EDT [facility] Ketone, Urine Negative Negative mg/dL 05/29/2024 11:09 PM EDT [facility] Specific [place], Urine 1.014 1.003 - 1.030 05/29/2024 11:09 PM EDT [facility] Blood, Urine Negative Negative 05/29/2024 11:09 PM EDT [facility] pH, Urine 7.5 5.0 - 7.5 Units 05/29/2024 11:09 PM EDT LAB[facility] Protein, Urine Negative Negative mg/dL 05/29/2024 11:09 PM EDT [facility] Urobilinogen, Urine Normal Normal mg/dL 05/29/2024 11:09 PM EDT LAB[facility]ORY [facility] Nitrite, Urine Negative Negative 05/29/2024 11:09 PM EDT LAB[facility] Esterase, Urine Trace(A) Negative 11:09 PM EDT LAB[facility] RBC, Urine 0-2 0 - 2 /HPF 05/29/2024 11:09 PM EDT LAB[facility]ORY [facility] WBC, Urine 0-2 0 - 2 /HPF 05/29/2024 11:09 PM EDT LAB[facility] Bacteria, Urine 0-25 0 - 25 /HPF 05/30/19 11:09 PM EDT LAB[facility]ORY [facility] Transitional Epithelial Cells, Urine 1-4(A) None /HPF 05/29/2024 11:09 PM EDT LAB[facility]ATORY [facility] Culture, Urine 05/29/2024 11:09 PM EDT LAB[facility]ATORY [facility] Comment:Culture not indicate d by urinalysis results Urine Urine specimen obtained by clean catch procedure / Unknown Non-blood Collection / Unknown 05/29/2024 12:23 PM EDT 05/29/2024 12:23 PM EDT us Alonso Rowe PA-C LAB URINE ORDERABLES F inal Result [facility]ORY [facility] [address] [place] [address] * URINALYSIS, REFLEX TO CULTURE (CUP ONLY) (05/28/2024 12:29 PM EDT) Urinalysis, Reflex to Culture Specimen Specimen collected and received 05/28/2024 2:01 PM EDT LAB[facility]ORY [facility] Urine Urine specimen obtained by clean catch procedure / Unknown Non-blood Collection / Unknown 05/28/2024 12:29 PM EDT 05/28/2024 12:29 PM EDT Alonso Rowe PA-C LAB URINE ORDERABLES F inal Result [facility]ORY [facility] [address] [place], [place] [id number] documented in this encounter Visit Diagnoses Diagnosis [...] Directives occurred with: Not Discussed Care Teams Tying Machine Operator Relationship Specialty Start Date End Date Magda Taylor DO [address] [place] [phone] PCP - General Family Medicine 11/02/18 documented as of this encounter
--- OUTSIDE RECORDS SUMMARY | 2024-06-18 20:48 | External Medical Summary ---
Author Name Unknown Address Unknown Organization [id number]:LABORATORY [facility] - [address] [place] [address] Laboratory Report Ordering Provider Test Date Status ELOY SANTANA 05/29/2024 12:23:24 Final Observation Date Value Abnormality Reference (Units) Status Bacteria identified in Specimen by Culture 05/29/2024 12:23:24 No significant growth Final Test: Culture, Urine, Quant itative
Specimen Source: Urine, Clean Catch
Specimen Type: Urine
Specimen Date: 05/29/2024 1223
Result Date: 05/30/2024 1758
Result Status: Final result
Resulting Lab: LABORATORY [facility]
[address]
[place] [address]

CULTURE

No significant growth

null Performing Location LABORATORY [facility] - [address] [place] [place] [address]
--- OUTSIDE RECORDS SUMMARY | 2024-06-18 20:48 | External Medical Summary | Summary of Care ---
Author Name Unknown Organization [facility] Address [address] [facility] [address] Phone [phone] Care Team Providers Care Director Of Accounting Name Role Phone Robmarcellus Magda Baker Primary Care Provider Reason for Visit * Reason Comments Outpatient Testing Encounter Details Date Type Department Care Team (Late st Contact Info) Description 05/28/2024 12:40 PM EDT [facility] [address] [place] [address] [facility] [address] [facility] [place] [address] Acute cystitis with hematuria Allergies Active Allergy [...] MCG/ACT nasal sprayIndications: Chronic rhinitis Administer 1 [place] into nostril 2 times a day. Use [...] morning. 90 Tablet 5 4 Active Ipratropium [place] 0.03 % Nasal SolutionIndicatio ns:Chronic rhinitis 1 [...] amlodipine 10mg Hyponatremia 01/18/2018 Overview (01/18/2018): Enio RenteriaTsBejscew-3403-zz Na Cl 1gm bid Factor 5 Leiden [...] 08/23-+2.5/-2.1--L-m R-consider dc actonel ( st ? [id number] then saw [facility]) Irritable bowel syndrome 04/15/2003 [...] mRNA, LNP-s, No Pre serve, 2-Dose Series ([employer] Daily [employer]als) 12/25/2020,05/03/2020,04/12/2020 Pneumococcal Conjugate Vacc, 13 Valent (Prevnar) [...] Description 06/04/2024 12:00 PM EDT [facility] [address] [phone] Harlan Gotti PA-C [address] [place] [address] 06/27/2024 3:40 PM EDT Office Visit Rheumatology [facility] [address] [place] [phone] Jamar Alvarez MD [facility], [place] [address] 08/10/2024 2:30 PM EDT Office Visit Otolaryngology [facility] [address] [place] [address] Hal Padilla DO [address] [place] [address] 09/14/2024 8:30 AM EDT Office Visit [facility] Felipe [address] [place] [phone] Magda Taylor DO [address] [place] [address] 12/26/2024 11:30 AM EDT Office Visit [facility] [place] [address] [place] [phone] Magda Taylor, DO [address] [place] [address] Pending Results Name Type Priority Associated Diagnoses [...] D LEVEL ONCE IN A LIFETIME-USE SMARTSET# [id number] Completed 10/06/2023, 04/13/2023, 01/18/2018, Additional history exists [...] and received 05/28/2024 2:01 PM EDT LABORATORY [facility] Urine Urine specimen obtained by clean catch procedure / Unknown Non-blood Collection / Unknown 05/28/2024 12:29 PM EDT 05/28/2024 12:29 PM EDT Alonso Rowe PA-C LAB URINE ORDERABLES F inal Result LAB[facility]ATORY [facility] [address] [place] [address] documented in this encounter Visit [...] occurred with: Not Discussed Care Teams Director Of Accounting Relationship Specialty Start Date End Date Magda Taylor DO [address] [place] [address] PCP - General Family Medicine 11/02/18 documented as of this encounter
--- OUTSIDE RECORDS SUMMARY | 2024-06-18 20:49 | External Medical Summary | Summary of Care ---
Author Name Unknown Organization [facility] Address [address] [address] Phone [phone] Care Team Providers Care Train Examiner Name Role Phone RobMagda germain Primary Care Provider Reason for Visit * Reason Onset Date Comments Urinary Tract Infection Symptoms Itching, burning sensation when urinating, frequency, urgency Nausea 3 days Headache X3 days Other Dizziness x3 day s Urinary Tract Infection Symptoms 05/22/2024 Encounter Details Date Type Department Care Team (Late st Contact Info) Description 05/22/2024 12:15 PM EDT Convenient Care Visit [facility] [address] [facility] [place] [phone] Zeyad Anderson PA-C [address] [facility] [place] [id number] UTI symptoms*; Acute UTI; Papule Allergies Active Allergy Reactions Criticality Noted Date [...] as of this encounter (statuses as of 05/22/2024) Medications ASPIRIN 325 MG PO TABS 1 daily Active acetaminophen (TYLENOL) 500 MG Tablet Take 2 Tablets by mouth in the morning and 2 Tablets before bedtime. 100 Tab 02/09/20 18 Active Azelastine-Fluti casone (DYMISTA) 137-50 MCG/ACT nasal sprayIndications :Chronic rhinitis Administer 1 Dalton into nostril 2 times a day. Use in each nostril as directed 3 Bottle 3 01/16/20 19 Active Misc Natural Products (GLUCOSAMINE CHOND COMPLEX/MSM) Tablet 1 Tablet. 05/24/19 19 Active Calcium Carb-Cholecalcif landon (CALCIUM CARBONATE-VITAMI N D3) 600-400 MG-UNIT TABS 1 Capsule. Takes this without the vitamin d 05/24/19 19 Active vitamin e 100 UNIT Capsule Take 1 Capsule by mouth in the morning. Active Calcium Carbonate Antacid 1000 MG Oral Tablet Chewable Take 400 mg by mouth as needed. 05/10/19 20 Active amLODIPine Besylate 2.5 MG Oral Tablet (NORVASC) 01/14/20 20 Active ProAir HFA 108 (90 Base) MCG/ACT Inhalation Aerosol SolutionIndicati ons:Mild intermittent reactive airway disease with wheezing without complication Inhale 2 Puffs by mouth 4 times a day. 6.7 g 3 12/09/19 21 Active Clobetasol Propionate 0.05 % External SolutionIndicati ons:Irritant contact dermatitis, unspecified trigger Apply topically to affected area 2 times a day. Apply to scalp and hair line - allow to soak in. 50 mL 02/27/20 21 Active Fluticasone Propionate 50 MCG/ACT Nasal Suspension (Flonase) Administer 2 Sprays into each nostril in the morning. 16 g 1 11/12/19 23 Active Famotidine 20 MG Oral Tablet (Pepcid)Indicati ons:Gastroesopha geal reflux disease without esophagitis Take 1 Tablet by mouth in the morning and 1 Tablet before bedtime. 180 Tablet 3 12/18/19 23 Active Diclofenac Sodium 1 % External Gel [...] 3-2 MG Oral Tablet Take by mouth. Active Magnesium Hydroxide 400 MG/5ML Oral Suspension (Milk of Magnesia) Take by mouth daily as needed for Constipation. Active Multi-Day Vitamins Oral Tablet Take 1 Tablet by mouth in the morning. Active Atorvastatin Calcium 40 MG Oral Tablet (Lipitor)Indicat ions:Dyslipidemi a, goal LDL below 100 Take 1 Tablet by mouth in the morning. 90 Tablet 5 10/06/19 24 Active Ipratropium [place] 0.03 % Nasal SolutionIndicati ons:Chronic rhinitis 1 squirt each nostril in the afternoon and evening 30 mL 5 10/06/19 24 Active Esomeprazole Magnesium 40 MG Oral Capsule Delayed Release Take 1 Capsule by mouth daily before breakfast. 90 Capsule 3 10/06/19 24 Active Levothyroxine Sodium 75 MCG Oral Tablet (Levoxyl) Take 1 Tablet by mouth daily first thing in the morning. (at least 30 min prior to breakfast or other meds) 90 Tablet 3 10/10/19 24 Active B Complex (Folic Acid) Oral Tablet Take by mouth. Active Ondansetron HCl 8 MG Oral Tablet (Zofran)Indicati ons:Nausea and vomiting, unspecified vomiting type Take 1 Tablet by mouth every 8 hours as needed for Nausea. 20 Tablet 3 04/27/19 25 Active Montelukast Sodium 10 MG Oral Tablet (Singulair)Indic ations:Asthma with severity to be determined Take 1 Tablet by mouth at bedtime. 90 Tablet 1 05/10/19 25 Active Cephalexin 500 MG Oral Capsule (Keflex)Indicati ons:Acute UTI Take 1 Capsule by mouth in the morning and 1 Capsule before bedtime. 14 Capsule 05/23/19 25 Active Cephalexin 500 MG Oral Capsule (Keflex)Indicati ons:Acute UTI Take 1 Capsule by mouth in the morning and 1 Capsule before bedtime. Do all this for 7 days. 14 Capsule 05/23/19 25 025 Discontinued documented as of this encounter (statuses as of 05/22/2024) Active Problems Problem Noted Date Diagnosed Date [...] amlodipine 10mg Hyponatremia 01/18/2018 Overview (01/18/2018): Enio [id number] Na Cl 1gm bid Factor 5 Leiden [...] 08/23-+2.5/-2.1--L-m R-consider dc actonel ( st ? 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 Mild intermittent asthma without complication Overview (01/18/2018): singulair documented as of this encounter (statuses as of 05/22/2024) Resolved Problems Problem Noted Date Diagnosed Date Resolved Date History of mammogram 01/18/2018 019 Overview (01/18/2018): Neg 9/ per pt History of Papanicolaou smear of cervix 01/18/2018 11/27/2018 Overview (01/18/2018): Neg 10/ per pt DrCleary Retinal edema 02/06/2010 01/18/2018 Open wound of [...] as of this encounter (statuses as of 05/22/2024) Immunizations Name Administration Dates Next Due COVID-19 mRNA, LNP-s, No Pre serve, 2-Dose Series (Recensus) 12/25/2020,05/03/2020,04/12/2020 Pneumococcal Conjugate Vacc, 13 Valent (Prevnar) [...] Sign Reading Time Taken Comments Blood Pressure 122/78 05/22/2024 12:20 PM EDT Pulse 80 05/22/2024 12:20 PM EDT Temperature 36.9 °C (98.5 °F) 05/22/2024 1 2:20 PM EDT Respiratory Rate 18 05/22/2024 12:2 0 PM EDT Oxygen Saturation 98% 05/22/2024 12: 20 PM EDT Inhaled Oxygen Concentration - - Weight 86.5 kg (190 lb 12.8 oz) 025 12:20 PM EDT Height 165.1 cm (5' 5") 05/22/2024 12:2 0 PM EDT Body Mass Index 31.75 05/22/2024 12:20 PM EDT documented in this encounter Functional Status * Are you deaf or do you have serious difficulty hearing? Answer Date of Assessment Author No 04/02/2023 6:29 PM James Hidalgo RN * Are you blind or do you have serious difficulty seeing, even when wearing glasses? Answer Date of Assessment Author No 04/02/2023 6:29 PM James Hidaglo RN * Do you have serious difficulty [...] this encounter Patient Instructions * Patient Instructions* Zeyad Anderson PA-C - 05/22/2024 1:24 PM EDT Drink plenty of fluids and increase fluid intake over next 48-72 hours. Take all medications as prescribed, even if you are feeling better sooner so as to reduce risk of reinfection and to reduce the chance of antibiotic resistance developing. If your urine culture shows resistance, we will contact you and switch medications. If your urine culture was negative, we will let you know. Otherwise, assume that if you do not hear from us, the bacteria that grew will likely be treated byyour antibiotic. F/U with PCP with no improvement in 3-5 days. Go immediately to the ED with any change or worsening symptoms including chills, fevers, back pain. documented in this encounter Progress Notes * Zeyad Anderson PA-C - 05/22/2024 1:02 PM EDT Nursing Notes: Valorie Vega LPN 05/22/24 1233 Signed Karina Palacios is a 78 year old female who presents to walk-in clinic today complaining of Chief Complaint Patient presents with Urinary Tract Infection Symptoms Itching, burning sensation when urinating, frequency, urgency Nausea 3 days Headache X3 days Other Dizziness x3 days OTC treatments tried:no Effectiveness: n/a Patient is accompanied by no one for today's visit. CONVENIENT CARE PROGRESS NOTE Karina Palacios is a 78 year old female who presents with urinary tract symptoms. Patient was accompanied by Self. HPI: Severity of Symptoms: Moderate Modifying Factors (what was done since onset of Symptoms): n/a Timing (How often does it occur): constant Quality (Feels Like): "I think I have a UTI" Other associated Signs and Symptoms: mild dysuria Reports frequency, urgency, malodorous urine. Denies hematuria, abn vaginal dc or concerns for STI. Denies h/o kidney stones. Denies f/s/ch, n/v/d/c, but did have a flu-like illness two weeks ago. She reports vaginal itching. She reports a "hard lump" on her R buttocks x today. Not painful. No drainage. ROS: See HPI HISTORY: Past Medical History: Diagnosis Date Allergic rhinitis 47 Anxiety state Asthma, severity to be determined Cervicalgia CVA (cerebral vascular accident) (HCC) reports in 2011 affecting tiffanie, without significant neuro deficits Incomplete bladder emptying Irritable bowel syndrome daily Migraine headaches - takes herbal meds Osteoporosis Other seborrheic keratosis TIA (transient ischemic attack) 02/2011 Urinary frequency Vertigo Past Surgical History: Procedure Laterality Date COLONOSCOPY, DIAGNOSTIC (RECTUM) 09/20/2013 colitis, repeat 5 yrs/done @ [facility] COLONOSCOPY, DIAGNOSTIC (RECTUM) 12/08/2018 fair prep, diverticulosis, repeat 3 yrs/[facility] COLONOSCOPY, DIAGNOSTIC (RECTUM) N/A 08/01/2020 [facility] Colonoscopy, 1-7mm polyp in ascending colon / biopsies benign adenomatous polyp / 5 year recall / COLONOSCOPY, DIAGNOSTIC (RECTUM) N/A 05/28/2022 [facility], colonoscopy, hemorrhoids, 4- 1 to 2mm polyps in ascending / biopsies benign adenomatous polyps / 5 year recall / COLORECTAL CANCER SCREEN; COLON 10/05, 11/12 normal; repeat in 2012 COLORECTAL CANCER SCREEN; NOT AT RISK 11/16/2007 fair prep repeat in 5 years CYSTOSCOPY 11/17/2004 urodynamics DEXA SCAN/BONE MINERAL AXIAL 01/2007 improved on actonel - repeat 3 years DILATION AND CURETTAGE (D&C) 09/2004 EGD, FLEXIBLE, DIAGNOSTIC 12/08/2018 normal bx / [facility] EGD, FLEXIBLE, DIAGNOSTIC N/A 01/16/2020 ESOPHAGOGASTRODUODENOSCOPY (EGD), FLEXIBLE, TRANSORAL, DIAGNOSTIC performed by Hiral Ledesma DO at OR [facility] EGD, FLEXIBLE, PLACE GASTRO TUBE N/A 04/19/2023 ESOPHAGOGASTRODUODENOSCOPY (EGD), FLEXIBLE, TRANSORAL, WITH PERCUTANEOUS GASTROSTOMY INSERTION performed by Denise Urrutia MD at ENDOSCOPY [facility] EGD, FLEXIBLE,W/ENDOSCOPIC US 01/26/2019 normal bx, repeat 1 yr/[facility] EGD, W/ENDOSCOPIC US N/A 01/16/2020 ESOPHAGOGASTRODUODENOSCOPY (EGD), FLEXIBLE, TRANSORAL, ENDOSCOPIC ULTRASOUND performed by Hiral Ledesma DO at OR [facility] INFORMATION 15yo r shoulder INFORMATION Right elbow sg - IR BIOPSY 04/21/2023 POST VOID RESIDUAL BLADDER US (PHYSICIAN ONLY) 11/17/2004 126ML. REMOVE CATARACT, INSERT LENS PROSTH Bilateral [place] UPPER ENDOSCOPY GI REFERRAL OP 09/2000 normal UPPER GI ENDOSCOPY 11/12/2013 gastritis/done @ [facility] Social History Socioeconomic History Marital status: Spouse name: Abdullahi cross Number of children: 2 Years of education: Not on file Highest education level: Not on file Occupational History Occupation: retired- 1993 Tobacco Use Smoking status: Former Passive exposure: Never Smokeless tobacco: Never Tobacco comments: smoked for three years at the age of 22 and than quit Vaping Use Vaping status: Never Used Substance and Sexual Activity Alcohol use: Not Currently Drug use: No Comment: 4c coffee and tea Sexual activity: Yes Partners: Male Other Topics Concern Service Not Asked Blood Transfusions No Caffeine Concern Not Asked Occupational Exposure Not Asked Hobby Hazards Not Asked Sleep Concern Not Asked Stress Concern Not Asked Weight Concern Not Asked Special Diet Yes Comment: takes Ca and Vit D Back Care Not Asked Exercise Yes Comment: walks/stationary bike 5x/wk Bike Helmet Not Asked Seat Belt Not Asked Self-Exams Yes Comment: breast,occ Social History Narrative job: no education: 3 yrs college service: no hobbies/interests: sewing, grandchild exercise: tries to walk 30-40 min per day diet: husbands diabetic diet scientology/zoroastrian: [facility]--going to [employer] [employer] [facility] marital status: 1967 children: 2 gc: 2- moving away ggc: 0 pets: no things to improve: calm down From [facility] - Dr Ram delivered her sons Social Needs Financial Resource Strain: Not on file Food Insecurity: No Food Insecurity (10/25/2019) Hunger Vital Sign Worried About Running Out of Food in the Last Year: Never true Ran Out of Food in the Last Year: Never true Transportation Needs: Not on file Social Connections: Not on file Housing Stability: Not on file Current Outpatient Medications Medication Sig Dispense Refill ASPIRIN 325 MG PO TABS 1 daily acetaminophen (TYLENOL) 500 MG Tablet Take 2 Tablets by mouth in the morning and 2 Tablets before bedtime. 100 Tab 0 Azelastine-Fluticasone (DYMISTA) 137-50 MCG/ACT nasal spray Administer 1 Dalton into nostril 2 timesa day. Use in [...] amLODIPine Besylate 2.5 MG Oral Tablet (NORVASC) Clobetasol Propionate 0.05 % External Solution Apply topically to affected area 2 times a day. Apply to scalp and hair line - allow to soak in. 50 mL 0 Fluticasone Propionate 50 MCG/ACT Nasal Suspension (Flonase) Administer 2 Sprays into each nostril in the morning. 16 g 1 Famotidine 20 MG Oral Tablet (Pepcid) Take 1 Tablet by mouth in the morning and 1 Tablet before bedtime. 180 Tablet 3 Potassium Chloride ER 20 MEQ Oral Tablet Extended Release Take 1 Tablet by mouth in the morning and1 Tablet before bedtime. Ibuprofen 400 MG Oral Tablet (Motrin) Take 2 Tablets by mouth every 6 hours as needed. Multi-Day Vitamins Oral Tablet Take 1 Tablet by mouth in the morning. Atorvastatin Calcium 40 MG Oral Tablet (Lipitor) Take 1 Tablet by mouth in the morning. 90 Tablet 5 Ipratropium [place] 0.03 % Nasal Solution 1 squirt each [...] by mouth at bedtime. 90 Tablet 1 Cephalexin 500 MG Oral Capsule (Keflex) Take 1 Capsule by mouth in the morning and 1 Capsule beforebedtime. Do all this for 7 days. 14 Capsule 0 ProAir HFA 108 (90 Base) MCG/ACT Inhalation Aerosol Solution Inhale 2 Puffs by mouth 4 times a day.6.7 g 3 Diclofenac Sodium 1 % External Gel (Voltaren) Apply topically to affected area. Apply tt left ankle(Patient not taking: Reported on 04/27/2024) Melatonin 3-2 MG Oral Tablet Take by mouth. (Patient not taking: Reported on 04/27/2024) Magnesium Hydroxide 400 MG/5ML Oral Suspension (Milk of Magnesia) Take by mouth daily as needed forConstipation. (Patient not taking: Reported on 02/03/2024) No current facility-administered medications for this visit. Review of patient's allergies indicates: Allergen Reactions Shingrix [Zoster Vac Recomb Adjuvanted] Other (Please comment) Weakness LE, unable to stand or ambulate for several hours after the first injection Sulfa Antibiotics Bactrim -dizziness Adhesive Tape Bandaids Bacitracin rash/irritation Other reaction(s): RASH Indomethacin (?) rash Latex Other reaction(s): RASH WITH LONGER EXPOSURE Other reaction(s): RASH WITH LONGER EXPOSURE Neomycin Other reaction(s): RASH Polymyxin B Other reaction(s): RASH Other reaction(s): RASH Family History Problem Relation Name Age of Onset Diabetes Mother Heart Disorder Mother Eye Problems Mother AMD, Glaucoma Hypertension Mother Heart Disorder Father Cancer Grandmother (Paternal) Cancer Grandfather (Paternal) Blood Disorder Aunt (Unspecified) colorectal/ ovarian, paternal Cancer Aunt (Unspecified) maternal great aunt, breast OBJECTIVE: BP 122/78 | Pulse 80 | Temp 36.9 °C (98.5 °F) (Tympanic) | Resp 18 | Ht 1.651 m (5' 5") | Wt 86.5kg (190 lb 12.8 oz) | SpO2 98% | BMI 31.75 kg/m² | BSA 1.99 m² Wt Readings from Last 1 Encounters: 05/22/24 86.5 kg (190 lb 12.8 oz) General appearance: awake, alert, no apparent distress Abdominal Exam: back: no CVA tenderness Respiratory: clear to auscultation, no rhonchi, no wheezes, and no crackles Heart: regular rate, regular rhythm, no murmurs , no rubs, and no gallops Skin/Integumentary: warm, dry 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 Small papule of erythema in proximal medial posterior thigh with some scale. Non-tender. No vesicles or drainage. No calor. Results for orders placed or performed in visit on 05/22/24 URINALYSIS, POINT OF CARE (ENTER/EDIT) Result Value Ref Range Color, Urine Yellow Yellow or Light Yellow Clarity, Urine Slightly Cloudy Clear Glucose, Urine Negative Negative mg/dL Bilirubin, Urine Negative Negative Ketone, Urine Negative Negative mg/dL Specific [place], Urine 1.015 1.003 - 1.030 Blood, Urine Small Negative pH, Urine 6.0 5.0 - 7.5 units Protein, Urine Trace Negative mg/dL Urobilinogen, Urine 0.2 0.2 - 1.0 mg/dL Nitrite, Urine Positive Negative Esterase, Urine Large Negative Patient Instructions Drink plenty of fluids and increase fluid intake over next 48-72 hours. Take all medications as prescribed, even if you are feeling better sooner so as to reduce risk of reinfection and to reduce the chance of antibiotic resistance developing. If your urine culture shows resistance, we will contact you and switch medications. If your urine culture was negative, we will let you know. Otherwise, assume that if you do not hear from us, the bacteria that grew will likely be treated byyour antibiotic. F/U with PCP with no improvement in 3-5 days. Go immediately to the ED with any change or worsening symptoms including chills, fevers, back pain. Assessment: UTI symptoms (Primary) - URINALYSIS, POINT OF CARE (ENTER/EDIT) Acute UTI - Cephalexin 500 MG Oral Capsule (Keflex); Take 1 Capsule by mouth in the morning and 1 Capsule before bedtime. Do all this for 7 days. Papule UA with large leuks, pos nitrites, small blood Papules appears to be dry skin vs eczema vs folliculitis (mild). Will start keflex and follow culture Follow Up: Return for Patient to follow up with Primary Care Provider as directed. | For: Patient to follow up with Primary Care Provider as directed Patient goals for plan of care were discussed Zeyad Anderson PA-C [facility] [address] [facility] [phone] documented in this encounter Nursing Notes * Valorie Vega LPN - 05/22/2024 12:29 PM EDT Karina Palacios is a 78 year old female who presents to walk-in clinic today complaining of Chief Complaint Patient presents with Urinary Tract Infection Symptoms Itching, burning sensation when urinating, frequency, urgency Nausea 3 days Headache X3 days Other Dizziness x3 days OTC treatments tried:no Effectiveness: n/a Patient is accompanied by no one for today's visit. documented in this encounter Miscellaneous Notes * Addendum Note - Zeyad Anderson PA-C - 05/22/2024 1:55 PM EDTAddended by: ZEYAD ANDERSON on: 05/22/2024 01:55 PM Modules accepted: Orders * Addendum Note - Zeyad Anderson PA-C - 05/22/2024 1:36 PM EDTAddended by: ZEYAD ANDERSON on: 05/22/2024 01:36 PM Modules accepted: Orders documented in this encounter Plan of Treatment Upcoming Encounters Date Type Department Care Team (Late st Contact Info) Description 06/27/2024 3:40 PM EDT Office Visit Rheumatology [facility] [address] [place] [phone] Jamar Alvarez MD [facility], [place] [address] 08/10/2024 2:30 PM EDT Office Visit Otolaryngology [facility] [address] [place] [address] Hal Padilla DO [address] [place] [address] 09/14/2024 8:30 AM EDT Office Visit [facility] Terri Jaylon [address] [place] [phone] Magda Taylor, DO [address] [place] [address] 12/26/2024 11:30 AM EDT Office Visit [facility] [place] [address] [place] [phone] Magda Taylor, DO [address] [place] [address] Pending Results Name Type Priority Associated Diagnoses Date /Time CULTURE, URINE, QUANTITATIVE Lab STAT UTI symptoms Acute UTI Papule 05/22/2024 1:39 PM EDT Scheduled Orders Name Type Priority Associated Diagnoses Orde r Schedule CULTURE, URINE, QUANTITATIVE Lab STAT UTI symptoms Acute UTI Papule Expected: 05/22/2024, Expires: 05/22/2025 Scheduled Procedures Name Priority Associated Diagnoses Date/Ti [...] D LEVEL ONCE IN A LIFETIME-USE SMARTSET# [id number] Completed 10/06/2023, 04/13/2023, 01/18/2018, Additional history exists [...] Name Priority Date/Time Associated Diagnosis Comments URINALYSIS, POINT OF CARE (ENTER/EDIT) Routine 05/22/2024 1:00 PM EDT UTI symptoms documented in this encounter Results * (ABNORMAL) URINALYSIS, POINT OF CARE (ENTER/EDIT) (05/22/2024 1:00 PM EDT) Color, Urine Yellow Yellow or Light Yellow Clarity, Urine Slightly Cloudy Clear Glucose, Urine Negative Negative mg/dL Bilirubin, Urine Negative Negative Ketone, Urine Negative Negative mg/dL Specific [place], Urine 1.015 1.003 - 1.030 Blood, Urine Small Negative pH, Urine 6.0 5.0 - 7.5 units Protein, Urine Trace Negative mg/dL Urobilinogen, Urine 0.2 0.2 - 1.0 mg/dL Nitrite, Urine Positive Negative Esterase, Urine Large Negative Urine 05/22/2024 1:00 PM EDT Zeyad Anderson PA-C LAB POINT OF CARE TEST ENTER/EDIT ORDERABLES Final Result documented in this encounter Visit Diagnoses Diagnosis UTI symptoms- Primary Other symptoms involving urinary system Acute UTI Urinary tract infection, site not specified Papule Other specified disorder of skin documented in this encounter Advance Directives * Full Code [...] Directives occurred with: Not Discussed Care Teams Train Examiner Relationship Specialty Start Date End Date Magda Taylor DO PCP - General Family Medicine 11/02/18 documented as of this encounter
--- OUTSIDE RECORDS SUMMARY | 2024-06-18 20:49 | External Medical Summary | Summary of Care ---
Author Name Unknown Organization [facility] Address [address] [facility] [address] Phone [phone] Care Team Providers Care Database Specialist Name Role Phone RobMagda germain Primary Care Provider Reason for Visit * Reason Onset Date Comments Urinary Tract Infection Symptoms Itching, burning sensation when urinating, frequency, urgency Nausea 3 days Headache X3 days Other Dizziness x3 day s Urinary Tract Infection Symptoms 05/22/2024 Encounter Details Date Type Department Care Team (Late st Contact Info) Description 05/22/2024 12:15 PM EDT Convenient Care Visit [facility] [place] 226 [facility] [place] [phone] Zeyad Andersno PA-C 174 [facility] [place] [id number] UTI symptoms*; Acute UTI; Papule Allergies Active [...] MCG/ACT nasal sprayIndications :Chronic rhinitis Administer 1 Nemo into nostril 2 times a day. Use [...] 90 Tablet 5 10/06/19 24 Active Ipratropium [place] 0.03 % Nasal SolutionIndicati ons:Chronic rhinitis 1 [...] amlodipine 10mg Hyponatremia 01/18/2018 Overview (01/18/2018): Enio RenteriaCvTlixzlk-0720-rq Na Cl 1gm bid Factor 5 Leiden [...] 08/23-+2.5/-2.1--L-m R-consider dc actonel ( st ? [id number] then saw Ansley) Irritable bowel syndrome 04/15/2003 [...] mRNA, LNP-s, No Pre serve, 2-Dose Series ([employer]) 12/25/2020,05/03/2020,04/12/2020 Pneumococcal Conjugate Vacc, 13 Valent (Prevnar) [...] (RECTUM) 09/20/2013 colitis, repeat 5 yrs/done @ [facility] COLONOSCOPY, DIAGNOSTIC (RECTUM) 12/08/2018 fair prep, diverticulosis, repeat 3 yrs/[facility] COLONOSCOPY, DIAGNOSTIC (RECTUM) N/A 08/01/2020 [facility] Colonoscopy, 1-7mm polyp in ascending colon / biopsies benign adenomatous polyp / 5 year recall / COLONOSCOPY, DIAGNOSTIC (RECTUM) N/A 05/28/2022 [facility], colonoscopy, hemorrhoids, 4- 1 to 2mm polyps [...] EGD, FLEXIBLE, DIAGNOSTIC 12/08/2018 normal bx / [facility] EGD, FLEXIBLE, DIAGNOSTIC N/A 01/16/2020 ESOPHAGOGASTRODUODENOSCOPY (EGD), FLEXIBLE, TRANSORAL, DIAGNOSTIC performed by Hiral Ledesma DO at OR [facility] EGD, FLEXIBLE, PLACE GASTRO TUBE N/A 04/19/2023 ESOPHAGOGASTRODUODENOSCOPY (EGD), FLEXIBLE, TRANSORAL, WITH PERCUTANEOUS GASTROSTOMY INSERTION performed by Denise Urrutia MD at ENDOSCOPY [facility] EGD, FLEXIBLE,W/ENDOSCOPIC US 01/26/2019 normal bx, repeat 1 yr/[facility] EGD, W/ENDOSCOPIC US N/A 01/16/2020 ESOPHAGOGASTRODUODENOSCOPY (EGD), FLEXIBLE, TRANSORAL, ENDOSCOPIC ULTRASOUND performed by Hiral Ledesma DO at OR [facility] INFORMATION 15yo r shoulder INFORMATION Right elbow sg - IR BIOPSY 04/21/2023 POST VOID RESIDUAL BLADDER US (PHYSICIAN ONLY) 11/17/2004 126ML. REMOVE CATARACT, INSERT LENS PROSTH Bilateral Neelatch UPPER ENDOSCOPY GI REFERRAL OP 09/2000 normal UPPER GI ENDOSCOPY 11/12/2013 gastritis/done @ [facility] Social History Socioeconomic History Marital status: Spouse [...] min per day diet: husbands diabetic diet caodaism/mormon: [facility]--going to [employer] marital status: 1967 children: 2 gc: 2- [...] (DYMISTA) 137-50 MCG/ACT nasal spray Administer 1 Nemo into nostril 2 timesa day. Use in [...] in the morning. 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 Small papule of erythema in proximal medial [...] Negative Ketone, Urine Negative Negative mg/dL Specific [place], Urine 1.015 1.003 - 1.030 Blood, Urine [...] of care were discussed Zeyad Anderson PA-C [facility] [address] [facility] [phone] documented in this encounter Nursing Notes * [...] Visit Rheumatology [facility] [address] [phone] Jamar Alvarez MD [facility]0 [facility], [place] [address] 08/10/2024 2:30 PM EDT Office Visit Otolaryngology [facility] [address] [place] [address] Hal Padilla DO [address] [place] [address] 09/14/2024 8:30 AM EDT Office Visit [facility] Terri Jaylon [address] [place] [phone] Magda Taylor, DO [address] [place] [address] 12/26/2024 11:30 AM EDT [facility] [place] [address] [place] [address] Magda Taylor, DO [address] [place] [address] Pending Results Name Type Priority Associated Diagnoses [...] D LEVEL ONCE IN A LIFETIME-USE SMARTSET# [id number] Completed 10/06/2023, 04/13/2023, 01/18/2018, Additional history exists [...] Negative Ketone, Urine Negative Negative mg/dL Specific [place], Urine 1.015 1.003 - 1.030 Blood, Urine [...] Directives occurred with: Not Discussed Care Teams Database Specialist Relationship Specialty Start Date End Date Magda Taylor DO PCP - General Family Medicine 11/02/18 documented as of this encounter
--- OUTSIDE RECORDS SUMMARY | 2024-06-18 20:49 | External Medical Summary | Summary of Care ---
Author Name Unknown Organization [facility] Address [address] [facility] [address] Phone [phone] Care Team Providers Care Lodge Sales Associate Name Role Phone RobMagda germain Primary Care Provider [phone] Reason for Visit * Reason Onset Date Comments Urinary Tract Infection Symptoms Itching, burning sensation when urinating, frequency, urgency Nausea 3 days Headache X3 days Other Dizziness x3 day s Urinary Tract Infection Symptoms 05/22/2024 Encounter Details Date Type Department Care Team (Late st Contact Info) Description 05/22/2024 12:15 PM EDT Convenient Care Visit [facility] 226 [facility] [place] [phone] Zeyad Anderson PA-C 174 [facility] [place] [phone] UTI symptoms*; Acute UTI; Papule Allergies Active [...] MCG/ACT nasal sprayIndications :Chronic rhinitis Administer 1 [place] into nostril 2 times a day. Use [...] 90 Tablet 5 10/06/19 24 Active Ipratropium [place] 0.03 % Nasal SolutionIndicati ons:Chronic rhinitis 1 [...] amlodipine 10mg Hyponatremia 01/18/2018 Overview (01/18/2018): Enio RenteriaEcCcbiijg-4873-tp Na Cl 1gm bid Factor 5 Leiden [...] 08/23-+2.5/-2.1--L-m R-consider dc actonel ( st ? [id number] then saw Ansley) Irritable bowel syndrome 04/15/2003 [...] mRNA, LNP-s, No Pre serve, 2-Dose Series ([facility]) 12/25/2020,05/03/2020,04/12/2020 Pneumococcal Conjugate Vacc, 13 Valent (Prevnar) [...] 09/20/2013 colitis, repeat 5 yrs/done @ [facility] COLONOSCOPY, DIAGNOSTIC (RECTUM) 12/08/2018 fair prep, diverticulosis, repeat 3 yrs/[facility] COLONOSCOPY, DIAGNOSTIC (RECTUM) N/A 08/01/2020 [facility] Colonoscopy, 1-7mm polyp in ascending colon / biopsies benign adenomatous polyp / 5 year recall / COLONOSCOPY, DIAGNOSTIC (RECTUM) N/A 05/28/2022 [facility], colonoscopy, hemorrhoids, 4- 1 to 2mm [...] FLEXIBLE, DIAGNOSTIC 12/08/2018 normal bx / [facility] EGD, FLEXIBLE, DIAGNOSTIC N/A 01/16/2020 ESOPHAGOGASTRODUODENOSCOPY (EGD), FLEXIBLE, TRANSORAL, DIAGNOSTIC performed by Hiral Ledesma DO at OR [facility] EGD, FLEXIBLE, PLACE GASTRO TUBE N/A 04/19/2023 ESOPHAGOGASTRODUODENOSCOPY (EGD), FLEXIBLE, TRANSORAL, WITH PERCUTANEOUS GASTROSTOMY INSERTION performed by Denise Urrutia MD at ENDOSCOPY [facility] EGD, FLEXIBLE,W/ENDOSCOPIC US 01/26/2019 normal bx, repeat 1 yr/[facility] EGD, W/ENDOSCOPIC US N/A 01/16/2020 ESOPHAGOGASTRODUODENOSCOPY (EGD), FLEXIBLE, TRANSORAL, ENDOSCOPIC ULTRASOUND performed by Hiral Ledesma DO at OR [facility] INFORMATION 15yo r shoulder INFORMATION Right elbow sg - IR BIOPSY 04/21/2023 POST VOID RESIDUAL BLADDER US (PHYSICIAN ONLY) 11/17/2004 126ML. 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 Use in [...] in the morning. 90 Tablet 5 Ipratropium [place] 0.03 % Nasal Solution 1 squirt each [...] rubs, and no gallops Skin/Integumentary: warm, dry Batt Packer present (BAKER BISCUIT). Small papule of erythema in proximal medial [...] Negative Ketone, Urine Negative Negative mg/dL Specific [place], Urine 1.015 1.003 - 1.030 Blood, Urine [...] of care were discussed Zeyad Anderson PA-C [facility] [address] [facility] [phone] documented in this encounter Nursing Notes * [...] 06/27/2024 3:40 PM EDT Office Visit Rheumatology [facility] [address] [phone] Jamar Alvarez MD [facility], [place] [address] 08/10/2024 2:30 PM EDT Office Visit Otolaryngology [facility] [address] [place] [address] [address] Hal Padilla DO [address] [place] [address] 09/14/2024 8:30 AM EDT Office Visit [facility] Terri Jaylon [address] [place] [phone] Magda Taylor, DO [address] [place] [address] 12/26/2024 11:30 AM EDT [facility] [place] [address] [place] [address] Magda Taylor, DO [address] [place] [address] Pending Results Name Type Priority Associated Diagnoses [...] D LEVEL ONCE IN A LIFETIME-USE SMARTSET# [id number] Completed 10/06/2023, 04/13/2023, 01/18/2018, Additional history exists [...] Negative Ketone, Urine Negative Negative mg/dL Specific [place], Urine 1.015 1.003 - 1.030 Blood, Urine [...] Directives occurred with: Not Discussed Care Teams Lodge Sales Associate Relationship Specialty Start Date End Date Magda Taylor DO PCP - General Family Medicine 11/02/18 documented as of this encounter
--- OUTSIDE RECORDS SUMMARY | 2024-06-18 20:49 | External Medical Summary | Summary of Care ---
Author Name Unknown Organization [facility] Address [address] [facility] [address] Phone [phone] Care Team Providers Care Student Development Coordinator Name Role Phone RobMagda germain Primary Care Provider Reason for Visit * Reason Onset Date Comments Urinary Tract Infection Symptoms Itching, burning sensation when urinating, frequency, urgency Nausea 3 days Headache X3 days Other Dizziness x3 day s Urinary Tract Infection Symptoms 05/22/2024 Encounter Details Date Type Department Care Team (Late st Contact Info) Description 05/22/2024 12:15 PM EDT Convenient Care Visit [facility] 226 [facility] [place] [phone] Zeyad Anderson PA-C 174 [facility] [place] [phone] UTI symptoms*; Acute UTI; Papule Allergies Active [...] MCG/ACT nasal sprayIndications :Chronic rhinitis Administer 1 [place] into nostril 2 times a day. Use [...] 90 Tablet 5 10/06/19 24 Active Ipratropium [place] 0.03 % Nasal SolutionIndicati ons:Chronic rhinitis 1 [...] amlodipine 10mg Hyponatremia 01/18/2018 Overview (01/18/2018): Enio RenteriaCdAikcljw-1507-ss Na Cl 1gm bid Factor 5 Leiden [...] 08/23-+2.5/-2.1--L-m R-consider dc actonel ( st ? [id number] then saw Ansley) Irritable bowel syndrome 04/15/2003 [...] mRNA, LNP-s, No Pre serve, 2-Dose Series ([employer]) 12/25/2020,05/03/2020,04/12/2020 Pneumococcal Conjugate Vacc, 13 Valent (Prevnar) [...] (RECTUM) 09/20/2013 colitis, repeat 5 yrs/done @ [facility] COLONOSCOPY, DIAGNOSTIC (RECTUM) 12/08/2018 fair prep, diverticulosis, repeat 3 yrs/[facility] COLONOSCOPY, DIAGNOSTIC (RECTUM) N/A 08/01/2020 [facility] Colonoscopy, 1-7mm polyp in ascending colon / biopsies benign adenomatous polyp / 5 year recall / COLONOSCOPY, DIAGNOSTIC (RECTUM) N/A 05/28/2022 [facility], colonoscopy, hemorrhoids, 4- 1 to 2mm polyps [...] EGD, FLEXIBLE, DIAGNOSTIC 12/08/2018 normal bx / [facility] EGD, FLEXIBLE, DIAGNOSTIC N/A 01/16/2020 ESOPHAGOGASTRODUODENOSCOPY (EGD), FLEXIBLE, TRANSORAL, DIAGNOSTIC performed by Hiral Ledesma DO at OR [facility] EGD, FLEXIBLE, PLACE GASTRO TUBE N/A 04/19/2023 ESOPHAGOGASTRODUODENOSCOPY (EGD), FLEXIBLE, TRANSORAL, WITH PERCUTANEOUS GASTROSTOMY INSERTION performed by Denise Urrutia MD at ENDOSCOPY [facility] EGD, FLEXIBLE,W/ENDOSCOPIC US 01/26/2019 normal bx, repeat 1 yr/[facility] EGD, W/ENDOSCOPIC US N/A 01/16/2020 ESOPHAGOGASTRODUODENOSCOPY (EGD), FLEXIBLE, TRANSORAL, ENDOSCOPIC ULTRASOUND performed by Hiral Ledesma DO at OR [facility] INFORMATION 15yo r shoulder INFORMATION Right elbow sg - IR BIOPSY 04/21/2023 POST VOID RESIDUAL BLADDER US (PHYSICIAN ONLY) 11/17/2004 126ML. REMOVE CATARACT, INSERT LENS PROSTH Bilateral Neelatch UPPER ENDOSCOPY GI REFERRAL OP 09/2000 normal UPPER GI ENDOSCOPY 11/12/2013 gastritis/done @ [facility] Social History Socioeconomic History Marital status: Spouse [...] min per day diet: husbands diabetic diet protestant/faith: [facility]--going to [employer] [facility] [facility] marital status: 1966 children: 2 [...] (DYMISTA) 137-50 MCG/ACT nasal spray Administer 1 Lowgap into nostril 2 timesa day. Use in [...] in the morning. 90 Tablet 5 Ipratropium [place] 0.03 % Nasal Solution 1 squirt each [...] rubs, and no gallops Skin/Integumentary: warm, dry Pulpwood Contractor present (SCOUT). Small papule of erythema in proximal medial [...] Negative Ketone, Urine Negative Negative mg/dL Specific [place], Urine 1.015 1.003 - 1.030 Blood, Urine [...] of care were discussed Zeyad Anderson PA-C [facility] [address] [facility] [phone] documented in this encounter Nursing Notes * [...] 06/27/2024 3:40 PM EDT Office Visit Rheumatology [facility] [address] [phone] Jamar Alvarez MD [facility], [place] [address] 08/10/2024 2:30 PM EDT Office Visit Otolaryngology [facility] [address] [place] [address] [address] Hal Padilla DO [address] [place] [address] 09/14/2024 8:30 AM EDT Office Visit [facility] Terri Jaylon [address] [place] [phone] Magda Taylor, DO [address] [place] [address] 12/26/2024 11:30 AM EDT Office [facility] [place] [address] [place] [address] Magda Taylor, DO [address] [place] [address] Pending Results Name Type Priority Associated Diagnoses [...] D LEVEL ONCE IN A LIFETIME-USE SMARTSET# [id number] Completed 10/06/2023, 04/13/2023, 01/18/2018, Additional history exists [...] Negative Ketone, Urine Negative Negative mg/dL Specific [place], Urine 1.015 1.003 - 1.030 Blood, Urine [...] Directives occurred with: Not Discussed Care Teams Student Development Coordinator Relationship Specialty Start Date End Date Magda Taylor DO PCP - General Family Medicine 11/02/18 documented as of this encounter
--- OUTSIDE RECORDS SUMMARY | 2024-06-18 20:49 | External Medical Summary | Summary of Care ---
Author Name Unknown Organization [facility] Address [address] [facility] [address] Phone [phone] Care Team Providers Care Head Mixer Name Role Phone RobMagda germain Primary Care Provider Reason for Visit * Reason Onset Date Comments Urinary Tract Infection Symptoms Itching, burning sensation when urinating, frequency, urgency Nausea 3 days Headache X3 days Other Dizziness x3 day s Urinary Tract Infection Symptoms 05/22/2024 Encounter Details Date Type Department Care Team (Late st Contact Info) Description 05/22/2024 12:15 PM EDT Convenient Care Visit [facility] 226 [facility] [place] [phone] Zeyad Anderson PA-C 174 [facility] [place] [phone] UTI symptoms*; Acute UTI; Papule Allergies Active [...] MCG/ACT nasal sprayIndications :Chronic rhinitis Administer 1 [place] into nostril 2 times a day. Use [...] 90 Tablet 5 10/06/19 24 Active Ipratropium [place] 0.03 % Nasal SolutionIndicati ons:Chronic rhinitis 1 [...] amlodipine 10mg Hyponatremia 01/18/2018 Overview (01/18/2018): Enio RenteriaJxItccioa-3620-pe Na Cl 1gm bid Factor 5 Leiden [...] 08/23-+2.5/-2.1--L-m R-consider dc actonel ( st ? [id number] then saw Ansley) Irritable bowel syndrome 04/15/2003 [...] mRNA, LNP-s, No Pre serve, 2-Dose Series ([employer]) 12/25/2020,05/03/2020,04/12/2020 Pneumococcal Conjugate Vacc, 13 Valent (Prevnar) [...] documented in this encounter Progress Notes * Zyead Anderson PA-C - 05/22/2024 1:02 PM EDT [...] 09/20/2013 colitis, repeat 5 yrs/done @ [facility] COLONOSCOPY, DIAGNOSTIC (RECTUM) 12/08/2018 fair prep, diverticulosis, repeat 3 yrs/[facility] COLONOSCOPY, DIAGNOSTIC (RECTUM) N/A 08/01/2020 [facility] Colonoscopy, 1-7mm polyp in ascending colon / biopsies benign adenomatous polyp / 5 year recall / COLONOSCOPY, DIAGNOSTIC (RECTUM) N/A 05/28/2022 [facility], colonoscopy, hemorrhoids, 4- 1 to 2mm polyps [...] FLEXIBLE, DIAGNOSTIC 12/08/2018 normal bx / [facility] EGD, FLEXIBLE, DIAGNOSTIC N/A 01/16/2020 ESOPHAGOGASTRODUODENOSCOPY (EGD), FLEXIBLE, TRANSORAL, DIAGNOSTIC performed by Hiral Ledesma DO at OR [facility] EGD, FLEXIBLE, PLACE GASTRO TUBE N/A 04/19/2023 ESOPHAGOGASTRODUODENOSCOPY (EGD), FLEXIBLE, TRANSORAL, WITH PERCUTANEOUS GASTROSTOMY INSERTION performed by Denise Urrutia MD at ENDOSCOPY [facility] EGD, FLEXIBLE,W/ENDOSCOPIC US 01/26/2019 normal bx, repeat 1 yr/[facility] EGD, W/ENDOSCOPIC US N/A 01/16/2020 ESOPHAGOGASTRODUODENOSCOPY (EGD), FLEXIBLE, TRANSORAL, ENDOSCOPIC ULTRASOUND performed by Hiral Ledesma DO at OR [facility] INFORMATION 15yo r shoulder INFORMATION Right elbow sg - IR BIOPSY 04/21/2023 POST VOID RESIDUAL BLADDER US (PHYSICIAN ONLY) 11/17/2004 126ML. 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 Use in [...] in the morning. 90 Tablet 5 Ipratropium [place] 0.03 % Nasal Solution 1 squirt each [...] rubs, and no gallops Skin/Integumentary: warm, dry Solar Energy Sales Specialist present (CHIEF ENGINEER'S HELPER). Small papule of erythema in proximal medial [...] Negative Ketone, Urine Negative Negative mg/dL Specific [place], Urine 1.015 1.003 - 1.030 Blood, Urine [...] [facility] [address] [facility] [phone] documented in this encounter Nursing Notes * [...] Visit Rheumatology [facility] [address] [phone] Jamar Alvarez MD [facility]0 [facility], [place] [address] 08/10/2024 2:30 PM EDT Office Visit Otolaryngology [facility] [address] [place] [address] [address] Hal Padilla DO [address] [place] [address] 09/14/2024 8:30 AM EDT Office Visit [facility] Terri Jaylon [address] [place] [phone] Magda Taylor, DO [address] [place] [address] 12/26/2024 11:30 AM EDT [facility] [place] [address] [place] [address] Magda Taylor, DO [address] [place] [address] Pending Results Name Type Priority Associated Diagnoses [...] D LEVEL ONCE IN A LIFETIME-USE SMARTSET# [id number] Completed 10/06/2023, 04/13/2023, 01/18/2018, Additional history exists [...] Negative Ketone, Urine Negative Negative mg/dL Specific [place], Urine 1.015 1.003 - 1.030 Blood, Urine [...] Directives occurred with: Not Discussed Care Teams Head Mixer Relationship Specialty Start Date End Date Magad Taylor DO PCP - General Family Medicine 11/02/18 documented as of this encounter
--- OUTSIDE RECORDS SUMMARY | 2024-06-18 20:49 | External Medical Summary ---
Author Name Unknown Address Unknown Organization [id number]:[facility] [address] [facility] [address] Laboratory Report Ordering Provider Test Date Status MONICA COURTNEY 05/22/2024 13:39:13 Final <10,000 colonies/ml mixed no rmal bret Observation Date Value Abnormality Reference (Units ) Status Bacteria identified in Specimen by Culture 05/22/2024 13:39:13 [id number]^ESCHE RICHIA COLI ESBL Abnormal Final >100,000 colonies/mL Escheri alice coli ESBL producing organism, This patient may require isolation.
This gram negative bacilli displays in vitro resistance to multiple antibiotics. This patient may require isolation. Carbapenem use is preferred. Contact infectious disease service for further recommendations. Performing Location [facility] [address] [facility] [address] Ordering Provider Test Date Status MONICA COURTNEY 05/22/2024 13:39:13 Final Observation Date Value Abnormality Reference (Units ) Status Ampicillin 05/22/2024 13:39:13 >=32 Resistant Final Ampicillin + Sulbactam 05/22/2024 13:39:13 16 Intermediate Final Cefazolin 05/22/2024 13:39:13 >=64 Resistant Final Cefepime susceptibility 05/22/2024 13:39:13 Susceptible Final This is an appended report. These results have been appended to a previously preliminary verified report. Ceftriaxone suceptibility 05/22/2024 13:39:13 32 Resi stant Final Ciprofloxacin 05/22/2024 13:39:13 >=4 Resistant Final Due to serious side effects, the FDA has advised against using Ciprofloxacin to treat uncomplicated UTIs and respiratory tract infections unless there are no alternative treatment options. Gentamicin susceptibility 05/22/2024 13:39:13 <=1 Susc eptible Final Levofloxacin susceptibility 05/22/2024 13:39:13 >=8 Re sistant Final Due to serious side effects, the FDA has advised against using Levofloxacin to treat uncomplicated UTIs and respiratory tract infections unless there are no alternative treatment options. Meropenem [Susceptibility] 05/22/2024 13:39:13 <=0.25 Lilian ceptible Final Nitrofurantoin susceptibility 05/22/2024 13:39:13 <=16 Susceptible Final Piperacillin + Tazobactamsusceptibility 05/22/2024 13:39:13 <=4 Susceptible Final TMP-SMZ susceptibility 05/22/2024 13:39:13 >=320 Resista nt Final Performing Location [facility] [address] [facility] [address] Ordering Provider Test Date Status MONICA COURTNEY 05/22/2024 13:39:13 Final Observation Date Value Abnormality Reference (Units ) Status Ertapenem [Susceptibility] 05/22/2024 13:39:13 34 Susceptible Susceptible >21 , Intermediate <=21 , Resistant <=18 Final Test: Culture, Urine, Quanti tative
Specimen Source: Urine, Clean Catch
Specimen Type: Urine
Specimen Date: 05/22/2024 1339
Result Date: 05/25/2024 1448
Result Status: Final result
Abnormal: Yes
Resulting Lab: [facility]
[address]
[facility] [address]

CULTURE

>100,000 colonies/mL Escherichia coli ESBL producing organism, This patient may
require isolation. (Abnormal)

This gram negative bacilli displays in vitro resistance to multiple
antibiotics. This patient may require isolation. Carbapenem use is
preferred. Contact infectious disease service for further recommendations.

<10,000 colonies/ml mixed normal bret

SUSCEPTIBILITY

Escherichia coli Escherichia coli
ESBL producing ESBL producing
organism, This organism, This
patient may require patient may require
isolation. isolation.
METHOD MORRISON CESPEDES MICROBROTH DILUTIONS

AMPICILLIN >=32 Resistant
AMPICILLIN/SULBACTAM 16 Intermediate
CEFAZOLIN >=64 Resistant
CEFEPIME -- Susceptible
[1]
CEFTRIAXONE 32 Resistant
CIPROFLOXACIN >=4 Resistant
[2]
ERTAPENEM 34 Susceptible
GENTAMICIN <=1 Susceptible
LEVOFLOXACIN >=8 Resistant
[3]
MEROPENEM <=0.25 Susceptible
NITROFURANTOIN <=16 Susceptible
PIPERACILLIN TAZOBACTAM <=4 Susceptible
TRIMETH/SULFAMETHOXAZOLE >=320 Resistant

[1] This is an appended report. These results have been appended to a
previously preliminary verified report.

[2] Due to serious side effects, the FDA has advised against using
Ciprofloxacin to treat uncomplicated UTIs and respiratory tract infections
unless there are no alternative treatment options.

[3] Due to serious side effects, the FDA has advised against using
Levofloxacin to treat uncomplicated UTIs and respiratory tract infections
unless there are no alternative treatment options.

null Performing Location [facility] - [address] [facility] [address]
--- OUTSIDE RECORDS SUMMARY | 2024-06-18 20:49 | External Medical Summary | Summary of Care ---
Author Name Unknown Organization [facility] Address [address] [address] Phone [phone] Care Team Providers Care Rehabilitation Consultant Name Role Phone RobMagda germain Primary Care Provider [phone] Reason for Visit * Reason Onset Date Comments Urinary Tract Infection Symptoms Itching, burning sensation when urinating, frequency, urgency Nausea 3 days Headache X3 days Other Dizziness x3 day s Urinary Tract Infection Symptoms 05/22/2024 Encounter Details Date Type Department Care Team (Late st Contact Info) Description 05/22/2024 12:15 PM EDT Convenient Care Visit [facility] [address] [facility] [place] [phone] Zeyad Anderson PA-C [address] [facility] [place] [id number] UTI symptoms*; Acute UTI; Papule Allergies Active [...] MCG/ACT nasal sprayIndications :Chronic rhinitis Administer 1 [place] into nostril 2 times a day. Use [...] 90 Tablet 5 10/06/19 24 Active Ipratropium [place] 0.03 % Nasal SolutionIndicati ons:Chronic rhinitis 1 [...] amlodipine 10mg Hyponatremia 01/18/2018 Overview (01/18/2018): Enio RenteriaSsQermzxh-9905-kg Na Cl 1gm bid Factor 5 Leiden [...] 08/23-+2.5/-2.1--L-m R-consider dc actonel ( st ? [id number] then saw Ansley) Irritable bowel syndrome 04/15/2003 [...] mRNA, LNP-s, No Pre serve, 2-Dose Series ([employer]) 12/25/2020,05/03/2020,04/12/2020 Pneumococcal Conjugate Vacc, 13 Valent (Prevnar) [...] (RECTUM) 09/20/2013 colitis, repeat 5 yrs/done @ [facility] COLONOSCOPY, DIAGNOSTIC (RECTUM) 12/08/2018 fair prep, diverticulosis, repeat 3 yrs/[facility] COLONOSCOPY, DIAGNOSTIC (RECTUM) N/A 08/01/2020 [facility] Colonoscopy, 1-7mm polyp in ascending colon / biopsies benign adenomatous polyp / 5 year recall / COLONOSCOPY, DIAGNOSTIC (RECTUM) N/A 05/28/2022 [facility], colonoscopy, hemorrhoids, 4- 1 to [...] EGD, FLEXIBLE, DIAGNOSTIC 12/08/2018 normal bx / [facility] EGD, FLEXIBLE, DIAGNOSTIC N/A 01/16/2020 ESOPHAGOGASTRODUODENOSCOPY (EGD), FLEXIBLE, TRANSORAL, DIAGNOSTIC performed by Hiral Ldeesma DO at OR [facility] EGD, FLEXIBLE, PLACE GASTRO TUBE N/A 04/19/2023 ESOPHAGOGASTRODUODENOSCOPY (EGD), FLEXIBLE, TRANSORAL, WITH PERCUTANEOUS GASTROSTOMY INSERTION performed by Denise Urrutia MD at ENDOSCOPY [facility] EGD, FLEXIBLE,W/ENDOSCOPIC US 01/26/2019 normal bx, repeat 1 yr/[facility] EGD, W/ENDOSCOPIC US N/A 01/16/2020 ESOPHAGOGASTRODUODENOSCOPY (EGD), FLEXIBLE, TRANSORAL, ENDOSCOPIC ULTRASOUND performed by Hiral Ledesma DO at OR [facility] INFORMATION 15yo r shoulder INFORMATION Right elbow sg - IR BIOPSY 04/21/2023 POST VOID RESIDUAL BLADDER US (PHYSICIAN ONLY) 11/17/2004 126ML. REMOVE CATARACT, INSERT LENS PROSTH Bilateral Neelatch UPPER ENDOSCOPY GI REFERRAL OP 09/2000 normal UPPER GI ENDOSCOPY 11/12/2013 gastritis/done @ [facility] Social History Socioeconomic History Marital [...] min per day diet: husbands diabetic diet confucianism/pentecostalism: [employer] [facility]--going to [employer] marital status: 1967 children: 2 gc: 2- moving away ggc: 0 pets: no things to improve: calm down From [facility] - Dr Ram delivered her [...] (DYMISTA) 137-50 MCG/ACT nasal spray Administer 1 [place] into nostril 2 timesa day. Use in [...] in the morning. 90 Tablet 5 Ipratropium [place] 0.03 % Nasal Solution 1 squirt each [...] rubs, and no gallops Skin/Integumentary: warm, dry Pricing Associate present (APPLICATION ADMINISTRATOR). Small papule of erythema in proximal medial [...] Negative Ketone, Urine Negative Negative mg/dL Specific [place], Urine 1.015 1.003 - 1.030 Blood, Urine [...] of care were discussed Zeyad Anderson PA-C [facility] [address] [facility] [phone] documented in this encounter Nursing Notes * [...] 06/27/2024 3:40 PM EDT Office Visit Rheumatology [facility] [address] [phone] Jamar Alvarez MD [facility], [place] [address] 08/10/2024 2:30 PM EDT Office Visit Otolaryngology [facility] [address] [place] [address] Hal Padilla DO [address] [place] [address] 09/14/2024 8:30 AM EDT Office Visit [facility] Terri Jaylon [address] [place] [phone] Magda Taylor, DO [address] [place] [address] 12/26/2024 11:30 AM EDT Office Visit [facility] [place] [address] [place] [address] Magda Taylor, DO [address] [place] [address] Pending Results Name Type Priority Associated Diagnoses [...] D LEVEL ONCE IN A LIFETIME-USE SMARTSET# [id number] Completed 10/06/2023, 04/13/2023, 01/18/2018, Additional history exists [...] Negative Ketone, Urine Negative Negative mg/dL Specific [place], Urine 1.015 1.003 - 1.030 Blood, Urine [...] Directives occurred with: Not Discussed Care Teams Rehabilitation Consultant Relationship Specialty Start Date End Date Magda Taylor DO PCP - General Family Medicine 11/02/18 documented as of this encounter
--- OUTSIDE RECORDS SUMMARY | 2024-06-18 20:49 | External Medical Summary | Summary of Care ---
Author Name Unknown Organization [facility] Address [address] [address] Phone [phone] Care Team Providers Care Ammonia Distiller Name Role Phone RobMagda germain Primary Care Provider [phone] Reason for Visit * Reason Onset Date Comments Urinary Tract Infection Symptoms Itching, burning sensation when urinating, frequency, urgency Nausea 3 days Headache X3 days Other Dizziness x3 day s Urinary Tract Infection Symptoms 05/22/2024 Encounter Details Date Type Department Care Team (Late st Contact Info) Description 05/22/2024 12:15 PM EDT Convenient Care Visit [facility] [address] [facility] [place] [phone] Zeyad Anderson PA-C 174 [facility] [place] [phone] UTI symptoms*; Acute UTI; Papule Allergies Active [...] MCG/ACT nasal sprayIndications :Chronic rhinitis Administer 1 [place] into nostril 2 times a day. Use [...] 90 Tablet 5 10/06/19 24 Active Ipratropium [place] 0.03 % Nasal SolutionIndicati ons:Chronic rhinitis 1 [...] amlodipine 10mg Hyponatremia 01/18/2018 Overview (01/18/2018): Enio RenteriaQvXjcdxin-8363-sp Na Cl 1gm bid Factor 5 Leiden [...] 08/23-+2.5/-2.1--L-m R-consider dc actonel ( st ? [id number] then saw Ansley) Irritable bowel syndrome 04/15/2003 [...] mRNA, LNP-s, No Pre serve, 2-Dose Series ([facility]) 12/25/2020,05/03/2020,04/12/2020 Pneumococcal Conjugate Vacc, 13 Valent (Prevnar) [...] 09/20/2013 colitis, repeat 5 yrs/done @ [facility] COLONOSCOPY, DIAGNOSTIC (RECTUM) 12/08/2018 fair prep, diverticulosis, repeat 3 yrs/[facility] COLONOSCOPY, DIAGNOSTIC (RECTUM) N/A 08/01/2020 [facility] Colonoscopy, 1-7mm polyp in ascending colon / biopsies benign adenomatous polyp / 5 year recall / COLONOSCOPY, DIAGNOSTIC (RECTUM) N/A 05/28/2022 [facility], colonoscopy, hemorrhoids, 4- 1 to 2mm polyps [...] FLEXIBLE, DIAGNOSTIC 12/08/2018 normal bx / [facility] EGD, FLEXIBLE, DIAGNOSTIC N/A 01/16/2020 ESOPHAGOGASTRODUODENOSCOPY (EGD), FLEXIBLE, TRANSORAL, DIAGNOSTIC performed by Hiral Ledesma DO at OR [facility] EGD, FLEXIBLE, PLACE GASTRO TUBE N/A 04/19/2023 ESOPHAGOGASTRODUODENOSCOPY (EGD), FLEXIBLE, TRANSORAL, WITH PERCUTANEOUS GASTROSTOMY INSERTION performed by Denise Urrutia MD at ENDOSCOPY [facility] EGD, FLEXIBLE,W/ENDOSCOPIC US 01/26/2019 normal bx, repeat 1 yr/[facility] EGD, W/ENDOSCOPIC US N/A 01/16/2020 ESOPHAGOGASTRODUODENOSCOPY (EGD), FLEXIBLE, TRANSORAL, ENDOSCOPIC ULTRASOUND performed by Hiral Ledesma DO at OR [facility] INFORMATION 15yo r shoulder INFORMATION Right elbow sg - IR BIOPSY 04/21/2023 POST VOID RESIDUAL BLADDER US (PHYSICIAN ONLY) 11/17/2004 126ML. REMOVE CATARACT, INSERT LENS PROSTH Bilateral Neelatch UPPER ENDOSCOPY GI REFERRAL OP 09/2000 normal UPPER GI ENDOSCOPY 11/12/2013 gastritis/done @ [facility] Social History Socioeconomic History Marital status: Spouse [...] min per day diet: husbands diabetic diet latter day/religious: [employer]--going to [employer] marital status: 1966 children: 2 gc: 2- moving away ggc: 0 pets: no things to improve: calm down From [facility] - Dr Ram delivered her [...] (DYMISTA) 137-50 MCG/ACT nasal spray Administer 1 [place] into nostril 2 timesa day. Use in [...] in the morning. 90 Tablet 5 Ipratropium [place] 0.03 % Nasal Solution 1 squirt each [...] rubs, and no gallops Skin/Integumentary: warm, dry Field Case Manager present (RETAIL PLANNER). Small papule of erythema in proximal medial [...] Negative Ketone, Urine Negative Negative mg/dL Specific [place], Urine 1.015 1.003 - 1.030 Blood, Urine [...] of care were discussed Zeyad Anderson PA-C [facility] [address] [facility] [phone] documented in this encounter Nursing Notes * [...] 06/27/2024 3:40 PM EDT Office Visit Rheumatology [facility] [address] [phone] Jamar Alvarez MD [facility], [place] [address] 08/10/2024 2:30 PM EDT Office Visit Otolaryngology [facility] [address] [place] [address] Hal Padilla DO [address] [place] [address] 09/14/2024 8:30 AM EDT Office Visit [facility] Terri Jaylon [address] [place] [phone] Magda Taylor, DO [address] [place] [address] 12/26/2024 11:30 AM EDT Office Visit [facility] [place] [address] [place] [address] Magda Taylor, DO [address] [place] [address] Pending Results Name Type Priority Associated Diagnoses [...] D LEVEL ONCE IN A LIFETIME-USE SMARTSET# [id number] Completed 10/06/2023, 04/13/2023, 01/18/2018, Additional history exists [...] Negative Ketone, Urine Negative Negative mg/dL Specific [place], Urine 1.015 1.003 - 1.030 Blood, Urine [...] Directives occurred with: Not Discussed Care Teams Ammonia Distiller Relationship Specialty Start Date End Date Magda Taylor DO PCP - General Family Medicine 11/02/18 documented as of this encounter
--- OUTSIDE RECORDS SUMMARY | 2024-06-18 20:49 | External Medical Summary | Summary of Care ---
Author Name Unknown Organization [facility] Address [address] [address] Phone [phone] Care Team Providers Care Systems Analyst Developer Name Role Phone Claudia Magda Baker Primary Care Provider Encounter Details Date Type Department Care Team (Late st Contact Info) Description 05/25/2024 Telephone [employer] [facility] [address] [place] [phone] Alonso Rowe PA-C [address] [facility] [place] [address] Allergies Active Allergy Reactions Criticality Noted Date [...] as of this encounter (statuses as of 05/26/2024) Medications ASPIRIN 325 MG PO TABS 1 daily Active acetaminophen (TYLENOL) 500 MG Tablet Take 2 Tablets by mouth in the morning and 2 Tablets before bedtime. 100 Tab 8 Active Azelastine-Flutic asone (DYMISTA) 137-50 MCG/ACT nasal sprayIndications: Chronic rhinitis Administer 1 [place] into nostril 2 times a day. Use [...] morning. 90 Tablet 5 4 Active Ipratropium [place] 0.03 % Nasal SolutionIndicatio ns:Chronic rhinitis 1 [...] as of this encounter (statuses as of 05/26/2024) Active Problems Problem Noted Date Diagnosed Date [...] amlodipine 10mg Hyponatremia 01/18/2018 Overview (01/18/2018): Enio RenteriaCzIvaknlr-0042-mb Na Cl 1gm bid Factor 5 Leiden [...] 08/23-+2.5/-2.1--L-m R-consider dc actonel ( st ? 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 Mild intermittent asthma without complication Overview (01/18/2018): singulair documented as of this encounter (statuses as of 05/26/2024) Resolved Problems Problem Noted Date Diagnosed Date [...] NONALLERGIC RHINITIS 09/11/2002 019 Overview (01/18/2018): On astjatinder,oswald lorenzanaovent NS AC SUPP OTITIS MEDIA, RIGHT 05/22/2002 07/09/2003 AC MAXILLARY SINUSITIS 10/11/200107/08 ACUTE URI NOS 10/11/2001 07/09/2003 Urinary frequency 11/27/2018 documented as of this encounter (statuses as of 05/26/2024) Immunizations Name Administration Dates Next Due COVID-19 mRNA, LNP-s, No Pre serve, 2-Dose Series ([employer]SPIN) 12/25/2020,05/03/2020,04/12/2020 Pneumococcal Conjugate Vacc, 13 Valent (Prevnar) [...] Author No 04/02/2023 6:29 PM James Hidalgo, RN * Do you have serious difficulty [...] encounter Miscellaneous Notes * Telephone Encounter - Alonso Rowe PA-C - 05/25/2024 5:39 PM EDT Called to discuss urine culture results with the patient. Original plan was to change to Macrobid which is debatable given age. However, the patient notes that her symptoms have cleared up since starting the cephalexin. Instead, will recheck urine culture next week. If symptoms worsen or stop improving, will call. documented in this encounter Plan of Treatment Upcoming Encounters Date Type Department Care Team (Late st Contact Info) Description 06/04/2024 12:00 PM EDT [facility] [address] [facility] [address] [place] [phone] Harlan Gotti PA-C [address] [facility] [place] [address] 06/27/2024 3:40 PM EDT Office Visit Rheumatology [facility] [address] [place] [phone] Jamar Alvarez MD [address] [facility], [place] [address] 08/10/2024 2:30 PM EDT Office Visit Otolaryngology [facility] [address] [place] [address] Hal Padilla DO [address] [place] [address] 09/14/2024 8:30 AM EDT Office Visit [facility], [address], [place] [phone] Magda Taylor, DO [address] [address] 12/26/2024 11:30 AM EDT Office Visit [facility], [address] [phone] Magda Taylor, DO [address] [address] Scheduled Orders Name Type Priority Associated Diagnoses Orde r Schedule URINALYSIS, REFLEX TO CULTURE (NOT FOR NEUTROPENIC PATIENTS) Lab Routine Acute cystitis with hematuria Expected: 05/29/2024, Expires: 05/25/2025 Scheduled Procedures Name Priority Associated Diagnoses Date/Ti [...] D LEVEL ONCE IN A LIFETIME-USE SMARTSET# [id number] Completed 10/06/2023, 04/13/2023, 01/18/2018, Additional history exists [...] as of this encounter Visit Diagnoses Diagnosis Acute cystitis with hematuria- Primary Acute cystitis documented in this encounter Additional [...] Directives occurred with: Not Discussed Care Teams Systems Analyst Developer Relationship Specialty Start Date End Date Magda Taylor DO PCP - General Family Medicine 11/02/18 documented as of this encounter
--- OUTSIDE RECORDS SUMMARY | 2024-06-18 20:50 | External Medical Summary | Summary of Care ---
Author Name Unknown Organization [facility] Address [address] [facility] [place] [address] Phone [phone] Care Team Providers Care End Stapler Name Role Phone Daily Taylor DO Primary Care Provider Reason for Visit * Reason Onset Date Comments Medication Refill 05/07/2024 Encounter Details Date Type Department Care Team (Late st Contact Info) Description 05/07/2024 Refill [facility] [address] [facility] [place] [phone] Daily Taylor DO [address] [place] [id number] Asthma with severity to be determined Allergies Active Allergy Reactions Criticality Noted Date [...] as of this encounter (statuses as of 05/09/2024) Medications ASPIRIN 325 MG PO TABS 1 daily Active acetaminophen (TYLENOL) 500 MG Tablet Take 2 Tablets by mouth in the morning and 2 Tablets before bedtime. 100 Tab 8 Active Azelastine-Fluti casone (DYMISTA) 137-50 MCG/ACT nasal sprayIndications :Chronic rhinitis Administer 1 [place] into nostril 2 times a day. Use [...] morning. 90 Tablet 5 4 Active Ipratropium [place] 0.03 % Nasal SolutionIndicati ons:Chronic rhinitis 1 [...] at bedtime. 90 Tablet 1 5 Active Montelukast Sodium 10 MG Oral Tablet (Singulair)Indic ations:Asthma with severity to be determined Take by mouth 1 Tablet before bedtime. 90 Tablet 3 2 025 Discontin ued(Refil l) documented as of this encounter (statuses as of 05/09/2024) Active Problems Problem Noted Date Diagnosed Date [...] amlodipine 10mg Hyponatremia 01/18/2018 Overview (01/18/2018): Enio [id number] Na Cl 1gm bid Factor 5 Leiden [...] 08/23-+2.5/-2.1--L-m R-consider dc actonel ( st ? 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 Mild intermittent asthma without complication Overview (01/18/2018): singulair documented as of this encounter (statuses as of 05/09/2024) Resolved Problems Problem Noted Date Diagnosed Date [...] as of this encounter (statuses as of 05/09/2024) Immunizations Name Administration Dates Next Due COVID-19 mRNA, LNP-s, No Pre serve, 2-Dose Series ([facility]) 12/25/2020,05/03/2020,04/12/2020 Pneumococcal Conjugate Vacc, 13 Valent (Prevnar) [...] Telephone Encounter - Daily Taylor DO - 05/09/2024 12:21 PM ESTSigned Prescriptions: Disp Refills Montelukast Sodium 10 MG Oral Tablet (Sing*90 Tab*1 Sig: Take 1 Tablet by mouth at bedtime. Authorizing Provider: DAILY TAYLOR * Telephone Encounter - Jamar Encinas [facility] - 05/08/2024 4:54 PM ESTPending Prescriptions: Disp Refills Montelukast Sodium 10 MG Oral Tablet (Sing*90 Tab*1 Sig: Take 1 Tablet by mouth at bedtime. * Telephone Encounter - Jamar Encinas [facility] - 05/08/2024 4:52 PM EST Patient comment: Last week when I was in to see you with everything else going on, I forgot to request a refill for montelukast 10MG tablets. Please send to [facility] mail service. Pending Prescriptions: Disp Refills Montelukast Sodium 10 MG Oral Tablet (Sin*90 Tab*1 Sig: Take 1 Tablet by mouth at bedtime. Last Visit: 04/27/2024 (in office), Visit date not found (telemedicine) Next Visit: 09/14/2024 If no future appointments scheduled, and last appointment is greater than a year ago, please schedule patient for a follow-up appointment Last date the medication was ordered: 11-02-[address] [facility] [id number] Is this request for a controlled substance? No Urine Drug Screen:No results found for this [...] 12:10 PM ALT 14 01/18/2018 04:20 PM Luke Hays.Ph. Clinical Pharmacist [facility] [address] [place] [address], [address] [place] [address] MC: [id number] 05/08/2024,4:53 PM documented in this encounter Plan of Treatment Upcoming Encounters Date Type Department Care Team (Late st Contact Info) Description 06/27/2024 3:40 PM EDT Office Visit Rheumatology [facility] [address] [place] [phone] Jamar Alvarez MD [address] [place] [address] 08/10/2024 2:30 PM EDT Office Visit Otolaryngology [facility] [address] [place] [address] Hal Padilla, DO [address] [place] [address] 09/14/2024 8:30 AM EDT Office Visit Family [facility] [address] [place] [phone] Daily Taylor, DO [address] [facility] [place] [address] 12/26/2024 11:30 AM EDT Office Visit [facility] [address] [place] [address] [place] [phone] Daily Taylor, DO [address] [facility] [place] [id number] Scheduled Procedures Name Priority Associated Diagnoses Date/Ti [...] Albumin/Creatinine Ratio 01/16/2027 01/17/2024 Colonoscopy 05/29/2027 05/28/2022, 05/10/2020, 12/08/2018, Additional history exists DTap/Tdap Vaccines (2 - Td or Tdap) 12/28/2028 12/28/2018, 12/22/2004 Zoster Vaccines Discontinued 05/09/2019 RETIRED - COLONOSCOPY-EVERY 5 YRS AGES 18-100 Discontinued 05/28/2022, 08/01/2020, 12/08/2018, Additional history exists VITAMIN D LEVEL ONCE IN A LIFETIME-USE SMARTSET# [id number] Completed 10/06/2023, 04/13/2023, 01/18/2018, Additional history exists [...] as of this encounter Visit Diagnoses Diagnosis Asthma with severity to be determined documented in this encounter Advance Directives * [...] Directives occurred with: Not Discussed Care Teams End Stapler Relationship Specialty Start Date End Date Daily Taylor DO PCP - General Family Medicine 11/02/18 documented as of this encounter
[2024-06-18] MEDS: FAMOTIDINE 20 MG TAB PO SCH (21:16)
[2024-06-18] MEDS: MONTELUKAST SODIUM 10 MG TABLET PO SCH (21:16)
[2024-06-18] MEDS: HEPARIN SOD 5,000 UNIT/0.5 ML VIAL SQ SCH (21:16)
[2024-06-18] MEDS: DICLOFENAC SOD 1% GEL 100 GM TUBE EXT SCH (21:16)
[2024-06-19] MEDS: LEVOTHYROXINE SODIUM 75 MCG TABLET PO SCH (05:42)
[2024-06-19] MEDS: PANTOprazole 40 MG TAB PO SCH (05:42)
[2024-06-19 06:56] LABS: Basophils # (auto) 0.05 K/uL (0.00-0.20); Basophils % (auto) 0.5 %; Hematocrit (blood only) 38.8 % (37.0-47.0); Hemoglobin 13.1 g/dl (12.0-16.0); Immature Granulocytes # (auto) 0.05 K/uL (0.01-0.20); Immature Granulocytes % (auto) 0.5 %; Lymphocytes # (auto) 1.87 K/uL (1.20-3.40); Lymphocytes % (auto) 18.8 %; Mean Corpuscular Hemoglobin 29.8 pg (25.0-34.0); Mean Corpuscular Hgb Conc 33.8 g/dL (32.0-36.0); Mean Corpuscular Volume 88.4 fL (80.0-100.0); Monocytes # (auto) 1.23 K/uL (0.11-0.59); Monocytes % (auto) 12.4 %; Neutrophils # (auto) 6.33 K/uL (1.40-6.50); Neutrophils % (auto) 63.8 %; Platelet Count 293 K/uL (130-400); RDW Coefficient of Variation 12.4 % (11.5-14.5); Red Blood Count 4.39 M/uL (4.20-5.40); White Blood Count 9.93 K/ul (4.8-10.8)
[2024-06-19 07:26] LABS: BUN Creatinine Ratio 23.4 (10-20); Calcium 8.8 mg/dl (8.6-10.3); Creatinine Clr Calc Pharmacy 80.1 ml/min; Potassium 4.1 mmol/L (3.5-5.1)
[2024-06-19] MEDS: ASPIRIN 325 MG ECTAB PO SCH (08:15)
[2024-06-19] MEDS: amLODIPine BESYLATE 5 MG TAB PO SCH (08:15)
[2024-06-19] MEDS: ATORVASTATIN 40 MG TAB PO SCH (08:16)
[2024-06-19] MEDS: SODIUM CHLORIDE 1 GM TABLET PO SCH (08:17)
[2024-06-19] MEDS: VITAMIN B COMPLEX TAB PO SCH (08:17)
[2024-06-19] MEDS: FLUTICASONE PROPIONATE NA SPR 16 GM BTL SCH (08:18)
[2024-06-19] MEDS: IPRATROPIUM BROMIDE NASAL SPRAY 0.03% 30 ML SCH (08:18)
[2024-06-19] MEDS: MULTIVITAMIN TAB PO SCH (12:13)
[2024-06-19] MEDS: CALCIUM 600MG + VIT D 400 IU TAB PO SCH (12:13)
[2024-06-19] MEDS: TOCOPHERYL, DL-ALPHA 400 UNITS 180 MG CAP PO SCH (12:13)
--- NOTE | 2024-06-19 13:11 | Hospitalist Progress Note ---
Date of Service June 19, 2024 Assessment & Plan (1) Acute UTI: Plan: Per admitting provider w/ addendum Assessment/plan Mechanical fall Acute urinary tract infection Patient presents with mechanical fall and generalized weakness Leukocytosis present with WBC count of 12,000. BUN/creatinine within normal limits. Electrolytes within normal limits. Urinalysis was positive for infection. CT head did not show any acute finding. CXR x-ray showed interval mid opacity of right base. Patient denies any cough, fever, or chills Cervical CT didn't show any acute findings. Plan to treat with ertapenem given her past urine culture results. Follow-up on final urine culture results. Follow blood culture PT OT evaluation Obtain TOOTH CLERK given right base opacity to rule out aspiration. will obtain procal. monitor for symptoms of pneumonia including cough, fever or shortness of breath History of asthmacontinue home inhalers Hypertensioncontinue amlodipine GERDcontinue omeprazole History of hyponatremiacontinue on salt tablets History of DVTcurrently not on anticoagulation; DVT prophylaxis-heparin Full code Admission and Anticipated Discharge Date Admission Date: June 18, 2024 Subjective Pt seen in follow up of weakness, UTI, poss. pna Currently sitting up in chair in NAD, reports feeling weak no fever, chills, chest pain, shortness of breath, cough, denies abd. pain Pt's present at the bedside - says she was treated for UTI about 2-3 weeks ago. She was feeling weak for several days so they were planning to go to urgent care - she wanted to shower before that and fell in shower. Review of Systems Review of Systems: All systems reviewed & are unremarkable except as noted in Subjective Physical Exam Physical Exam: Constitutional: WD/WN frail elderly F in NAD Respiratory: normal respiratory effort, lungs clear to auscultation, no wheeze, rales, rhonchi. Normal insp/exp effort, no accessory muscle use Cardiovascular: RRR, no murmur, no edema Vessels: no JVD Chest: normal inspection of chest Abdomen: normal bowel sounds, soft, nontender Musculoskeletal: moves extremities Skin: no rashes, warm and dry Neurologic: PERRL, EOMI, no face palsy, no dysarthria, moves all extremities Results & Data Results & Data Vital Signs (Past 12 Hours) Vital Signs Temp Pulse Resp BP Pulse Ox O2 Del Method 06/19/24 07:59 36.4 C L 84 16 154/83 H 97 Room Air Laboratory Results 06/19/24 Range/Units 06:23 WBC 9.93 (4.8-10.8) K/ul RBC 4.39 (4.20-5.40) M/uL Hgb 13.1 (12.0-16.0) g/dl Hct 38.8 (37.0-47.0) % MCV 88.4 (80.0-100.0) fL MCH 29.8 (25.0-34.0) pg MCHC 33.8 (32.0-36.0) g/dL RDW Std Deviation 40.0 (36.4-46.3) fL RDW Coeff of Chrissie 12.4 (11.5-14.5) % Plt Count 293 (130-400) K/uL MPV 10.0 (9.4-12.4) fL Immature Gran % (Auto) 0.5 % Neut % (Auto) 63.8 % Lymph % (Auto) 18.8 % [place] % (Auto) 12.4 % Eos % (Auto) 4.0 % Baso % (Auto) 0.5 % Neut # (Auto) 6.33 (1.40-6.50) K/uL Lymph # (Auto) 1.87 (1.20-3.40) K/uL [place] # (Auto) 1.23 H (0.11-0.59) K/uL Eos # (Auto) 0.40 (0.00-0.50) K/uL Baso # (Auto) 0.05 (0.00-0.20) K/uL Immature Gran # (Auto) 0.05 (0.01-0.20) K/uL Sodium 135 L (136-145) mmol/L Potassium 4.1 (3.5-5.1) mmol/L Chloride 100 (98-107) mmol/L Carbon Dioxide 28 (21-32) mmol/L Anion Gap 7 (3-11) BUN 15 (6-23) mg/dl Creatinine 0.64 (0.6-1.2) mg/dl Est Cr Clr Drug Dosing 80.1 ml/min eGFR 90.96 BUN/Creatinine Ratio 23.4 H (10-20) Glucose 95 (70-99(Fasting)) mg/dl Calcium 8.8 (8.6-10.3) mg/dl Procalcitonin 0.03 (0-0.5) ng/ml Medications Administered Current Inpatient Medications Acetaminophen (Acetaminophen 325 Mg Tab) 650 mg PO Q4H PRN PRN Reason: pain/fever Stop: 07/18/24 18:30 Al Hydrox/Mg Hydrox/Simethicone (Aluminum/Magnesium Susp 30 Ml Udc) 30 ml PO Q6H PRN PRN Reason: Dyspepsia Stop: 07/18/24 18:30 Albuterol (Albuterol Hfa 8 Gm Inhaler) 2 puffs INH QID PRN PRN Reason: Shortness Of Breath Or Wheezin Stop: 07/18/24 18:30 Amlodipine Besylate (Amlodipine Besylate 5 Mg Tab) 2.5 mg PO [facility] Stop: 07/19/24 08:59 Last Admin: 06/19/24 08:15 Dose: 2.5 mg Aspirin (Aspirin 325 Mg Ectab) 325 mg PO [facility] Stop: 07/19/24 08:59 Last Admin: 06/19/24 08:15 Dose: 325 mg Atorvastatin Calcium (Atorvastatin 40 Mg Tab) 40 mg PO [facility] Stop: 07/19/24 08:59 Last Admin: 06/19/24 08:16 Dose: 40 mg Calcium Carbonate (Calcium Carbonate 500 Mg Chewable Tab) 500 mg PO Q4H PRN PRN Reason: Gi Upset Stop: 07/18/24 18:30 Calcium/Vitamin D (Calcium 600mg + Vit D 400 Iu Tab) 1 tab PO QDL [facility] Stop: 07/19/24 11:29 Last Admin: 06/19/24 12:13 Dose: 1 tab Diclofenac Sodium (Diclofenac Sod 1% Gel 100 Gm Tube) 2 gm EXT BID [facility]; Protocol Stop: 07/18/24 20:59 Last Admin: 06/19/24 08:15 Dose: 2 gm Famotidine (Famotidine 20 Mg Tab) 20 mg PO [facility] Stop: 07/18/24 20:59 Last Admin: 06/18/24 21:16 Dose: 20 mg Fluticasone Propionate (Fluticasone Propionate Na Spr 16 Gm Btl) 2 sprays [facility] Stop: 07/19/24 08:59 Last Admin: 06/19/24 08:18 Dose: 2 sprays Guaifenesin (Guaifenesin 600 Mg Tabcr) 600 mg PO Q12 JEANMARIE Stop: 07/19/24 20:59 Heparin Sodium (Porcine) (Heparin Sod 5,000 Unit/0.5 Ml Vial) 5,000 units SQ Q8 JEANMARIE Stop: 07/18/24 21:59 Last Admin: 06/19/24 13:55 Dose: 5,000 units Ertapenem (Invanz 1000mg) 1,000 mg in 10 mls @ 2 mls/min IV Q24H JEANMARIE Stop: 06/24/24 13:59 Last Admin: 06/19/24 13:54 Dose: 2 mls/min Ipratropium [place] (Ipratropium [place] Nasal [place] 0.03% 30 Ml) 1 sprays NA DAILY JEANMARIE Stop: 07/19/24 08:59 Last Admin: 06/19/24 08:18 Dose: 1 sprays Levothyroxine Sodium (Levothyroxine Sodium 75 Mcg Tablet) 75 mcg PO DAILYBB JEANMARIE Stop: 07/19/24 06:29 Last Admin: 06/19/24 05:42 Dose: 75 mcg Magnesium Hydroxide (Magnesium Hydroxide Susp 30 Ml Udc) 30 ml PO Q6H PRN PRN Reason: Constipation Stop: 07/18/24 18:30 Meclizine HCl (Meclizine Hcl 25 Mg Tab) 25 mg PO HS PRN PRN Reason: Dizziness Stop: 07/18/24 18:30 Montelukast Sodium (Montelukast Sodium 10 Mg Tablet) 10 mg PO HS JEANMARIE Stop: 07/18/24 20:59 Last Admin: 06/18/24 21:16 Dose: 10 mg Multivitamins (Multivitamin Tab) 1 tab PO QDL JEANMARIE Stop: 07/19/24 11:29 Last Admin: 06/19/24 12:13 Dose: 1 tab Pantoprazole Sodium (Pantoprazole 40 Mg Tab) 40 mg PO DAILYBB JEANMARIE Stop: 07/19/24 06:29 Last Admin: 06/19/24 05:42 Dose: 40 mg Polyethylene Glycol (Polyethylene (Miralax) 17 Gm Pack) 17 gm PO DAILY PRN PRN Reason: Constipation Stop: 07/18/24 18:30 Sodium Chloride (Sodium Chloride 1 Gm Tablet) 1 gm PO DAILY JEANMARIE Stop: 07/19/24 08:59 Last Admin: 06/19/24 08:17 Dose: 1 gm Vitamin B Complex (Vitamin B Complex Tab) 1 tab PO QAM [facility] Stop: 07/19/24 08:59 Last Admin: 06/19/24 08:17 Dose: 1 tab Vitamin E (Tocopheryl, Dl-Alpha 400 Units 180 Mg Cap) 180 mg PO QDL [facility] Stop: 07/19/24 11:29 Last Admin: 06/19/24 12:13 Dose: 180 mg
[2024-06-19] MEDS: ERTAPENEM 1000MG 1,000 MG/10 ML SYR IV SCH (13:54)
[2024-06-19] MEDS: guaiFENesin 600 MG TABCR PO SCH (20:41)
[2024-06-20] MEDS: ACETAMINOPHEN 325 MG TAB PO PRN (07:37)
[2024-06-20 07:47] LABS: Hematocrit (blood only) 39.8 % (37.0-47.0); Hemoglobin 13.3 g/dl (12.0-16.0); Mean Corpuscular Hemoglobin 29.3 pg (25.0-34.0); Mean Corpuscular Hgb Conc 33.4 g/dL (32.0-36.0); Mean Corpuscular Volume 87.7 fL (80.0-100.0); Mean Platelet Volume 10.4 fL (9.4-12.4); Platelet Count 300 K/uL (130-400); RDW Coefficient of Variation 12.7 % (11.5-14.5); RDW Standard Deviation 40.7 fL (36.4-46.3); Red Blood Count 4.54 M/uL (4.20-5.40); White Blood Count 9.55 K/ul (4.8-10.8)
[2024-06-20 08:15] LABS: Calcium 8.9 mg/dl (8.6-10.3); Potassium 3.7 mmol/L (3.5-5.1)
[2024-06-20 08:21] LABS: BUN Creatinine Ratio 23.7 (10-20); Creatinine Clr Calc Pharmacy 86.9 ml/min
--- NOTE | 2024-06-20 16:22 | Hospitalist Progress Note ---
Date of Service June 20, 2024 Assessment & Plan (1) Acute UTI: Plan: Mechanical fall Acute urinary tract infection Patient presents with mechanical fall and generalized weakness Leukocytosis present with WBC count of 12,000 on admission Urinalysis was positive for infection. CT head did not show any acute finding. CXR showed interval mid opacity of right base. Patient denies any cough, fever, or chills Cervical CT didn't show any acute findings. Continue ertapenem given her past urine culture results. Follow urine culture and blood cultures PT OT evaluation History of asthmacontinue home inhalers Hypertensioncontinue amlodipine GERDcontinue omeprazole History of hyponatremiacontinue on salt tablets History of DVTcurrently not on anticoagulation; DVT prophylaxis-heparin Full code Admission and Anticipated Discharge Date Admission Date: June 18, 2024 Subjective Pt was seen in the AM Stated she had a headache and wants a bath Review of Systems Review of Systems: All systems reviewed & are unremarkable except as noted in Subjective Physical Exam Physical Exam: General: Alert, oriented. No acute distress Psych: Appropriate mood and affect HEENT: NC/AT CV: RRR Resp: Breath sounds clear bilaterally, no increased effort of breathing Abdomen: Soft, nontender Extremities: No edema in lower extremities bilaterally. Results & Data Results & Data Vital Signs (Past 12 Hours) Vital Signs Temp Pulse Resp BP Pulse Ox O2 Del Method 06/20/24 15:07 36.4 C L 80 16 135/82 97 Room Air 06/20/24 07:19 36.6 C 79 16 159/81 H 98 Room Air
[2024-06-21 07:41] LABS: Basophils # (auto) 0.06 K/uL (0.00-0.20); Basophils % (auto) 0.6 %; Eosinophils # (auto) 0.55 K/uL (0.00-0.50); Eosinophils % (auto) 5.6 %; Hematocrit (blood only) 38.8 % (37.0-47.0); Hemoglobin 12.8 g/dl (12.0-16.0); Immature Granulocytes # (auto) 0.07 K/uL (0.01-0.20); Immature Granulocytes % (auto) 0.7 %; Lymphocytes # (auto) 2.11 K/uL (1.20-3.40); Lymphocytes % (auto) 21.6 %; Mean Corpuscular Hemoglobin 29.3 pg (25.0-34.0); Mean Corpuscular Volume 88.8 fL (80.0-100.0); Mean Platelet Volume 9.8 fL (9.4-12.4); Monocytes # (auto) 1.05 K/uL (0.11-0.59); Monocytes % (auto) 10.7 %; Neutrophils # (auto) 5.93 K/uL (1.40-6.50); Neutrophils % (auto) 60.8 %; Platelet Count 311 K/uL (130-400); RDW Coefficient of Variation 12.8 % (11.5-14.5); RDW Standard Deviation 41.5 fL (36.4-46.3); Red Blood Count 4.37 M/uL (4.20-5.40); White Blood Count 9.77 K/ul (4.8-10.8)
[2024-06-21 08:03] LABS: Calcium 8.4 mg/dl (8.6-10.3); Magnesium 1.9 mg/dl (1.7-2.4); Potassium 3.8 mmol/L (3.5-5.1)
[2024-06-21 08:08] LABS: BUN Creatinine Ratio 28.1 (10-20); Creatinine Clr Calc Pharmacy 80.1 ml/min; Phosphorus 2.9 mg/dl (2.5-4.9)
--- NOTE | 2024-06-21 11:37 | Hospitalist Progress Note ---
Date of Service June 21, 2024 Assessment & Plan (1) Acute UTI: Plan: Mechanical fall Acute urinary tract infection Patient presents with mechanical fall and generalized weakness Leukocytosis present with WBC count of 12,000 on admission, currently wnl Urinalysis was positive for infection. CT head did not show any acute findings. CXR showed interval mid opacity of right base. Patient denies any cough, fever, or chills Cervical CT didn't show any acute findings. Urine Cx grew Proteus and ESBL E. coli sensitive to Ertapenem Continue ertapenem at this time, daily dose 4 out of 7 today. Blood Cx NGTD PT OT evaluation- recommending acute rehab History of asthmacontinue home inhalers Hypertensioncontinue amlodipine GERDcontinue omeprazole History of hyponatremiacontinue on salt tablets History of DVTcurrently not on anticoagulation; DVT prophylaxis-heparin Full code Admission and Anticipated Discharge Date Admission Date: June 18, 2024 Subjective Pt was seen in the AM Was sitting in chair near the bed, alert Asking about discharge Attempt to update unsuccessful Review of Systems Review of Systems: All systems reviewed & are unremarkable except as noted in Subjective Physical Exam Physical Exam: General: Alert, oriented. No acute distress Psych: Appropriate mood and affect HEENT: NC/AT CV: RRR Resp: Breath sounds clear bilaterally, no increased effort of breathing Abdomen: Soft, nontender Extremities: No edema in lower extremities bilaterally. Results & Data Results & Data Vital Signs (Past 12 Hours) Vital Signs Temp Pulse Resp BP Pulse Ox O2 Del Method 06/21/24 07:46 36.9 C 79 16 126/76 97 Room Air
[2024-06-22 09:29] LABS: Basophils # (auto) 0.07 K/uL (0.00-0.20); Basophils % (auto) 0.7 %; Eosinophils # (auto) 0.36 K/uL (0.00-0.50); Eosinophils % (auto) 3.8 %; Hematocrit (blood only) 40.6 % (37.0-47.0); Hemoglobin 13.6 g/dl (12.0-16.0); Immature Granulocytes # (auto) 0.07 K/uL (0.01-0.20); Immature Granulocytes % (auto) 0.7 %; Lymphocytes # (auto) 2.04 K/uL (1.20-3.40); Lymphocytes % (auto) 21.7 %; Mean Corpuscular Hgb Conc 33.5 g/dL (32.0-36.0); Mean Corpuscular Volume 89.6 fL (80.0-100.0); Monocytes # (auto) 0.94 K/uL (0.11-0.59); Neutrophils # (auto) 5.91 K/uL (1.40-6.50); Neutrophils % (auto) 63.1 %; Platelet Count 324 K/uL (130-400); RDW Coefficient of Variation 12.8 % (11.5-14.5); RDW Standard Deviation 42.2 fL (36.4-46.3); Red Blood Count 4.53 M/uL (4.20-5.40); White Blood Count 9.39 K/ul (4.8-10.8)
[2024-06-22 09:48] LABS: BUN Creatinine Ratio 22.2 (10-20); Calcium 8.8 mg/dl (8.6-10.3); Creatinine Clr Calc Pharmacy 81.3 ml/min; Magnesium 1.9 mg/dl (1.7-2.4); Phosphorus 2.8 mg/dl (2.5-4.9); Potassium 4.2 mmol/L (3.5-5.1)
--- NOTE | 2024-06-22 12:27 | Hospitalist Progress Note ---
Date of Service June 22, 2024 Assessment & Plan (1) Acute UTI: Plan: Mechanical fall Acute urinary tract infection Patient presents with mechanical fall and generalized weakness Leukocytosis present with WBC count of 12,000 on admission, currently wnl Urinalysis was positive for infection. CT head did not show any acute findings. CXR showed interval mid opacity of right base. Patient denies any cough, fever, or chills Cervical CT didn't show any acute findings. Urine Cx grew Proteus and ESBL E. coli sensitive to Ertapenem Continue ertapenem at this time, daily dose 5 out of 7 today. Blood Cx NGTD PT OT evaluation- recommending acute rehab History of asthmacontinue home inhalers Hypertensioncontinue amlodipine GERDcontinue omeprazole History of hyponatremiacontinue on salt tablets History of DVTcurrently not on anticoagulation; DVT prophylaxis-heparin Full code Admission and Anticipated Discharge Date Admission Date: June 18, 2024 Subjective Pt was seen in the AM, at bedside Updated on course and need for IV abx for treatment Review of Systems Review of Systems: All systems reviewed & are unremarkable except as noted in Subjective Physical Exam Physical Exam: General: Alert, oriented. No acute distress Psych: Appropriate mood and affect HEENT: NC/AT CV: RRR Resp: Breath sounds clear bilaterally, no increased effort of breathing Abdomen: Soft, nontender Extremities: No edema in lower extremities bilaterally. Results & Data Results & Data Vital Signs (Past 12 Hours) Vital Signs Temp Pulse Resp BP Pulse Ox O2 Del Method 06/22/24 07:59 36.9 C 78 16 156/84 H 96 Room Air
[2024-06-23 07:27] LABS: Basophils # (auto) 0.08 K/uL (0.00-0.20); Basophils % (auto) 0.9 %; Eosinophils # (auto) 0.44 K/uL (0.00-0.50); Eosinophils % (auto) 4.9 %; Hematocrit (blood only) 38.6 % (37.0-47.0); Hemoglobin 12.9 g/dl (12.0-16.0); Immature Granulocytes # (auto) 0.09 K/uL (0.01-0.20); Lymphocytes # (auto) 2.26 K/uL (1.20-3.40); Lymphocytes % (auto) 24.9 %; Mean Corpuscular Hgb Conc 33.4 g/dL (32.0-36.0); Mean Corpuscular Volume 89.8 fL (80.0-100.0); Mean Platelet Volume 10.2 fL (9.4-12.4); Monocytes # (auto) 1.07 K/uL (0.11-0.59); Monocytes % (auto) 11.8 %; Neutrophils # (auto) 5.13 K/uL (1.40-6.50); Neutrophils % (auto) 56.5 %; Platelet Count 317 K/uL (130-400); RDW Coefficient of Variation 12.7 % (11.5-14.5); RDW Standard Deviation 41.9 fL (36.4-46.3); White Blood Count 9.07 K/ul (4.8-10.8)
[2024-06-23 07:48] LABS: BUN Creatinine Ratio 22.5 (10-20); Calcium 8.9 mg/dl (8.6-10.3); Creatinine Clr Calc Pharmacy 72.2 ml/min; Phosphorus 3.6 mg/dl (2.5-4.9); Potassium 4.5 mmol/L (3.5-5.1)
--- NOTE | 2024-06-23 17:11 | Hospitalist Progress Note ---
Date of Service June 23, 2024 Assessment & Plan (1) Acute UTI: Plan: Mechanical fall Acute urinary tract infection Patient presents with mechanical fall and generalized weakness Leukocytosis present with WBC count of 12,000 on admission, currently wnl Urinalysis was positive for infection. CT head did not show any acute findings. CXR showed interval mid opacity of right base. Patient denies any cough, fever, or chills Cervical CT didn't show any acute findings. Urine Cx grew Proteus and ESBL E. coli sensitive to Ertapenem Continue ertapenem at this time, daily dose 6 out of 7 today. Blood Cx NGTD PT OT evaluation- recommending acute rehab History of asthmacontinue home inhalers Hypertensioncontinue amlodipine GERDcontinue omeprazole History of hyponatremiacontinue on salt tablets History of DVTcurrently not on anticoagulation; DVT prophylaxis-heparin Full code Admission and Anticipated Discharge Date Admission Date: June 18, 2024 Subjective Pt was seen in the AM, at bedside Updated on course Discussion of need for rehab Pt more alert today Review of Systems Review of Systems: All systems reviewed & are unremarkable except as noted in Subjective Physical Exam Physical Exam: General: Alert, oriented. No acute distress Psych: Appropriate mood and affect HEENT: NC/AT CV: RRR Resp: Breath sounds clear bilaterally, no increased effort of breathing Abdomen: Soft, nontender Extremities: No edema in lower extremities bilaterally. Results & Data Results & Data Vital Signs (Past 12 Hours) Vital Signs Temp Pulse Resp BP Pulse Ox O2 Del Method 06/23/24 08:00 36.6 C 77 18 146/80 H 98 Room Air
[2024-06-24 06:59] LABS: Eosinophils # (auto) 0.44 K/uL (0.00-0.50); Eosinophils % (auto) 4.6 %; Hematocrit (blood only) 36.8 % (37.0-47.0); Hemoglobin 12.1 g/dl (12.0-16.0); Immature Granulocytes # (auto) 0.11 K/uL (0.01-0.20); Immature Granulocytes % (auto) 1.1 %; Lymphocytes # (auto) 2.29 K/uL (1.20-3.40); Lymphocytes % (auto) 23.8 %; Mean Corpuscular Hemoglobin 29.7 pg (25.0-34.0); Mean Corpuscular Hgb Conc 32.9 g/dL (32.0-36.0); Mean Corpuscular Volume 90.4 fL (80.0-100.0); Monocytes # (auto) 1.12 K/uL (0.11-0.59); Monocytes % (auto) 11.6 %; Neutrophils # (auto) 5.58 K/uL (1.40-6.50); Neutrophils % (auto) 57.9 %; Platelet Count 304 K/uL (130-400); RDW Coefficient of Variation 12.8 % (11.5-14.5); RDW Standard Deviation 42.5 fL (36.4-46.3); Red Blood Count 4.07 M/uL (4.20-5.40); White Blood Count 9.64 K/ul (4.8-10.8)
[2024-06-24 07:34] LABS: Albumin Globulin Ratio 1.1 (0.9-2); Albumin Level 3.1 gm/dl (3.4-5.0); BUN Creatinine Ratio 27.9 (10-20); Bilirubin,Total 0.5 mg/dl (0.2-1.0); Calcium 8.8 mg/dl (8.6-10.3); Creatinine Clr Calc Pharmacy 75.4 ml/min; Globulin 2.9 gm/dl (2.5-4.0); Phosphorus 3.6 mg/dl (2.5-4.9); Potassium 4.1 mmol/L (3.5-5.1)
--- NOTE | 2024-06-24 11:43 | Hospitalist Progress Note ---
Date of Service June 24, 2024 Assessment & Plan (1) Acute UTI: Plan: Mechanical fall Acute urinary tract infection Patient presents with mechanical fall and generalized weakness Leukocytosis present with WBC count of 12,000 on admission, currently wnl Urinalysis was positive for infection. CT head did not show any acute findings. CXR showed interval mid opacity of right base. Patient denies any cough, fever, or chills Cervical CT didn't show any acute findings. Urine Cx grew Proteus and ESBL E. coli sensitive to Ertapenem Continue ertapenem at this time (started on June 19, 2023), daily dose 7 out of 7 today. Blood Cx NGTD PT OT evaluation- recommending acute rehab History of asthmacontinue home inhalers Hypertensioncontinue amlodipine GERDcontinue omeprazole History of hyponatremiacontinue on salt tablets History of DVTcurrently not on anticoagulation; DVT prophylaxis-heparin Full code Admission and Anticipated Discharge Date Admission Date: June 18, 2024 Subjective Pt was seen in the AM, and family at bedside Updated on course Pt AAOx3 Review of Systems Review of Systems: All systems reviewed & are unremarkable except as noted in Subjective Physical Exam Physical Exam: General: Alert, oriented. No acute distress Psych: Appropriate mood and affect HEENT: NC/AT CV: RRR Resp: Breath sounds clear bilaterally, no increased effort of breathing Abdomen: Soft, nontender Extremities: No edema in lower extremities bilaterally. Results & Data Results & Data Vital Signs (Past 12 Hours) Vital Signs Temp Pulse Resp BP Pulse Ox O2 Del Method 06/24/24 07:07 36.6 C 77 16 154/82 H 98 Room Air
[2024-06-24] MEDS: ERTAPENEM 1000MG 1,000 MG/10 ML SYR IV STA (19:35)
[2024-06-25 07:17] VITALS: BP 144/83; PULSE 79; RESP 16; TEMP 97.5; O2SAT 98
[2024-06-25 12:21] LABS: Albumin Level 3.7 gm/dl (3.4-5.0); Bilirubin,Total 0.5 mg/dl (0.2-1.0); Calcium 9.4 mg/dl (8.6-10.3); Potassium 4.3 mmol/L (3.5-5.1)
[2024-06-25 12:27] LABS: Albumin Globulin Ratio 1.1 (0.9-2); BUN Creatinine Ratio 27.3 (10-20); Creatinine Clr Calc Pharmacy 77.6 ml/min; Globulin 3.4 gm/dl (2.5-4.0); Phosphorus 2.7 mg/dl (2.5-4.9); Total Protein 7.1 gm/dl (6.0-8.3)
--- NOTE | 2024-06-25 12:40 | Discharge Summary ---
Discharge Summary Date of Service June 25, 2024 Principal Dx & Hospital Course #1 = Principal Diagnosis (1) Acute UTI: Plan Pt is a 78yo with past medical history significant for mild intermittent asthma, hypertension, irritable bowel syndrome, GERD, chronic interstitial cystitis, osteoarthritis, factor V Leiden mutation, history of CVA, hyponatremia, history of DVT who presents with a mechanical fall and generalized weakness. Mechanical fall Acute urinary tract infection Acute Metabolic Encephalopathy Patient presented with mechanical fall and generalized weakness Leukocytosis present with WBC count of 12,000 on admission, currently wnl Urinalysis was positive for infection. CT head did not show any acute findings. CXR showed interval mid opacity of right base. Patient denies any cough, fever, or chills Cervical CT didn't show any acute findings. Urine Cx grew Proteus and ESBL E. coli sensitive to Ertapenem Continue ertapenem at this time (started on June 19, 2023), completed 7 days of treatment on the day of discharge. Blood Cx NGTD PT OT evaluation- recommending acute rehab Chronic Medical Problems: History of asthmacontinue home inhalers Hypertensioncontinue amlodipine GERDcontinue omeprazole History of hyponatremiacontinue on salt tablets History of DVTcurrently not on anticoagulation Notes For Next Care Provider As above Medication Changes From Visit None Admission HPI Per Admitting Provider History obtained from interview with the patient, patient's , ED provider and chart review. Past medical history of mild intermittent asthma, hypertension, irritable bowel syndrome, GERD, chronic interstitial cystitis, osteoarthritis, factor V Leiden mutation, history of CVA, hyponatremia, history of DVT Last admission in March 2023; admitted for fever of unknown origin, generalized weakness in setting of COVID-19 infection.Patient was then transferred to [facility] for further evaluation; was admitted there for over a month. She was then discharged to [facility] where she was there for 3 months and then went back home. Patient presents to the hospital with generalized weakness and fall. Patient reports that she has been feeling weaker for last 3 days. She reportedly had a fall last week. She reports urinary urgency She denies loss of consciousness, fever, chills, chest pain, shortness of breath or abdominal pain. She denies any urinary symptoms as well. On presentation to the ED, she was afebrile, normotensive and saturating well on room air. Lab work showed leukocytosis with WBC count of 12,000. BUN/creatinine within normal limits. Electrolytes within normal limits. Urinalysis was positive for infection. CT head did not show any acute finding. Checks x-ray showed interval mid opacity of right base. Cervical CT didn't show any findings. Admission Exam Per Admitting Provider Constitutional: Alert oriented x2; not in distress. Respiratory: normal respiratory effort, lungs clear to auscultation, no wheeze, rales, rhonchi. Normal insp/exp effort, no accessory muscle use Cardiovascular: RRR, no murmur, no edema Vessels: no JVD or carotid bruit Chest: normal inspection of chest Abdomen: normal bowel sounds, soft, nontender, no hepatosplenomegaly Musculoskeletal: no cyanosis or clubbing, extremities motor strength 5/5 Skin: no rashes, warm and dry normal turgor Neurologic: PERRL, EOMI, accommodation nl, no face palsy, no dysarthria CN's II- XI intact bilaterally and moves all extremities Discharge Exam General: Alert, oriented. No acute distress Psych: Appropriate mood and affect HEENT: NC/AT CV: RRR Resp: Breath sounds clear bilaterally, no increased effort of breathing Abdomen: Soft, nontender Extremities: No edema in lower extremities bilaterally. Updated Medication List Medication Instructions Recorded Confirmed Type aspirin 325 mg tablet 325 mg PO QAM 05/23/18 06/18/24 History calcium 600 mg (as 1 cap PO QDL 05/23/18 06/18/24 History carbonate)-vitamin D3 62.5 mcg (2,500 unit) capsule esomeprazole magnesium 40 mg 40 mg PO DAILYBB 05/23/18 06/18/24 History capsule,delayed release (Nexium) ipratropium bromide 21 mcg (0.03 1 sprays intranasal DAILY 05/23/18 06/18/24 History %) nasal spray montelukast 10 mg tablet 10 mg PO HS 05/23/18 06/18/24 History (Singulair) multivitamin 1 tab PO QDL 05/23/18 06/18/24 History vitamin E 268 mg (400 unit) capsule 400 unit PO QDL 01/26/19 06/18/24 History calcium carbonate (Tums Ultra) 400 mg PO DIRECTED PRN Gi Upset 05/10/19 06/18/24 History fluticasone propionate 50 2 spray intranasal QAM 07/29/20 06/18/24 History mcg/actuation nasal spray,suspension amlodipine 2.5 mg tablet 2.5 mg PO QAM #90 tabs 12/06/22 06/18/24 Rx albuterol sulfate 90 mcg/actuation 2 puff inhalation QID PRN 03/01/23 06/18/24 History aerosol inhaler (ProAir HFA) Shortness Of Breath Or Wheezing famotidine 20 mg tablet 20 mg PO HS 03/01/23 06/18/24 History meclizine 25 mg tablet 25 mg PO HS PRN Dizziness 03/01/23 06/18/24 History trolamine salicylate 10 % topical 1 applic topical BID PRN Pain 03/01/23 06/18/24 History cream (Aspercreme) sodium chloride 1,000 mg soluble 1,000 mg PO DAILY 03/11/23 06/18/24 History tablet diclofenac sodium 1 % topical gel 2 g EXT BID #100 grams 03/31/23 06/18/24 Rx (Voltaren Arthritis Pain) atorvastatin 40 mg tablet 40 mg PO QAM 06/18/24 06/18/24 History levothyroxine 75 mcg tablet 75 mcg PO QAM 06/18/24 06/18/24 History (Synthroid) vitamin B complex 1 tab PO QAM 06/18/24 06/18/24 History Hospital Stay Data Consultations 06/18/24 15:25 ED Decision to Admit Stat Diagnostic Imagining Performed 06/18/24 13:14 CT cervical spine wo con Stat CT head/brain wo con Stat Cervical Spine CT 06/18/24 13:14 CT cervical spine wo con CLINICAL HISTORY: 78 years-old Female with fall; confusion. Acute neck injury status post fall COMPARISON: Head CT of same day, MRI cervical spine 03/22/2023, 03/31/2023 TECHNIQUE: Multiple axial CT images of the cervical spine were obtained without contrast. A dose lowering technique was utilized adhering to the principles of ALARA. FINDINGS: Moderate to severe intervertebral disc space narrowing with spondylitic spurring posterior disc osteophyte complex lesions redemonstrated at C4-C5, C5-C6 and C6-C7. Moderate to severe multilevel facet arthropathy. No acute fracture or subluxation identified. There is moderate to severe degeneration of the right temporal mandibular joint. The cervical soft tissues appear unremarkable. No pneumothorax. Intralobular septal thickening of the lung apices. Linear subpleural opacity of the right lung apex favors scarring. Unremarkable soft tissues. IMPRESSION: No acute cervical spine fracture or subluxation. ACT 112: Negative or not required by law. The above report was generated using voice recognition software. It may contain grammatical, syntax or spelling errors. Electronically signed by: Herbie Benitez M.D. 06/18/2024 1:53 PM Chest X-Ray 06/18/24 13:14 XR chest 1V portable CLINICAL HISTORY: weakness COMPARISON STUDY: 03/30/2023 FINDINGS: Heart size and pulmonary vasculature are normal. There is interval mild opacity at the right base with blunting of the right costophrenic angle. No pneumothorax. IMPRESSION: Interval mild opacity at the right base could represent atelectasis, early pneumonia, or small right pleural effusion. ACT 112: Negative or not required by law. Electronically signed by: Andre Teran M.D. 06/18/2024 1:[address] 06/18/24 13:14 CT head/brain wo con CLINICAL HISTORY: fall; confusion. TECHNIQUE: Multiple axial CT images of the head were obtained without contrast. A dose lowering technique was utilized adhering to the principles of ALARA. CT DOSE: 1049.31 mGy.cm COMPARISON: 03/11/2023 FINDINGS: No intracranial hemorrhage seen. There is stable mild prominence of the ventricles out of proportion to the sulci, cerebral atrophy versus mild normal pressure hydrocephalus. Stable moderate chronic small vessel ischemic change. No skull fracture seen. Visualized paranasal sinuses and mastoid air cells are clear. IMPRESSION: No acute findings. ACT 112: Negative or not required by law. The above report was generated using voice recognition software. It may contain grammatical, syntax or spelling errors. Electronically signed by: Andre Teran M.D. 06/18/2024 1:44 PM Pending Results Patient Have Any Pending Studies at Discharge: No Discharge Instructions Given to Patient (Per Discharging Provider) Karina, You were admitted and treated for an acute urinary trac infection. You completed antibiotic treatment in the hospital. You are being discharged to acute rehab. Please keep close follow up with your primary care provider after discharge. Please do not hesitate to come back to the emergency room if your symptoms worsen or return. It was a pleasure taking care of you while you were here. Total Time Total Time Spent Total Time Spent (In Minutes): 60
[2024-06-25 13:49] LABS: Basophils # (auto) 0.09 K/uL (0.00-0.20); Basophils % (auto) 0.8 %; Eosinophils # (auto) 0.39 K/uL (0.00-0.50); Eosinophils % (auto) 3.7 %; Hematocrit (blood only) 39.3 % (37.0-47.0); Hemoglobin 13.2 g/dl (12.0-16.0); Immature Granulocytes # (auto) 0.11 K/uL (0.01-0.20); Lymphocytes # (auto) 1.99 K/uL (1.20-3.40); Lymphocytes % (auto) 18.7 %; Mean Corpuscular Hemoglobin 29.7 pg (25.0-34.0); Mean Corpuscular Hgb Conc 33.6 g/dL (32.0-36.0); Mean Corpuscular Volume 88.5 fL (80.0-100.0); Mean Platelet Volume 9.6 fL (9.4-12.4); Monocytes # (auto) 1.18 K/uL (0.11-0.59); Monocytes % (auto) 11.1 %; Neutrophils % (auto) 64.7 %; Platelet Count 366 K/uL (130-400); RDW Coefficient of Variation 12.9 % (11.5-14.5); RDW Standard Deviation 41.5 fL (36.4-46.3); Red Blood Count 4.44 M/uL (4.20-5.40); White Blood Count 10.66 K/ul (4.8-10.8)
== END 2024-06-25 14:54 | DRG 689 ==
LOC: ED 12:37 → SUATTDRO 16:25 → 3W 16:25

== ENCOUNTER 2024-12-14 08:38 | Observation (INO) ==
--- NOTE | 2024-12-14 09:13 | Emergency Department Note ---
Impression & Plan Dysuria, Leukocytosis ED Provider Note NAME: TATIANA ESCOBAR AGE: 79 SEX: F : 1945 ARRIVES VIA: Walk-In INFORMANT: Patient, ED PROVIDER(S): eDejay Hawkins MD CHIEF COMPLAINT: Dysuria, urinary incontinence, confusion MEDICAL DECISION MAKING: Patient presents due to concern for urinary symptoms. Review of the prior notes to show concern for multidrug-resistant organism back in June. Patient is well appearance at the bedside. IV was established and blood work was obtained. Patient has no flank pain. Patient with a white count of 18.5 with a normal hemoglobin and platelet count kidney function is unremarkable. Patient did have a Pro-Mohan lactate and blood cultures obtained. Chest x-ray showed atelectasis versus early pneumonia in the left base. CT head obtained and was unremarkable. Ertapenem was ordered for prior history of drug-resistant UTI as well as the possible pneumonia. Given this and the associated confusion I did speak the on- call hospital service Dr. Peralta and the patient was admitted to the medicine service. Discussion w/ other healthcare providers: Dr. Peralta inpatient medicine service Prior /Outside records reviewed: I reviewed a prior urine culture which showed ESBL as well as Proteus from June. Differential diagnosis: Infection, dehydration, metabolic abnormality, hypo/hyperglycemia, electrolyte imbalance, anemia, UTI, pneumonia, thyroid dysfunction among others were considered. Diagnostics, as interpreted by me: ECG: Normal sinus rhythm, rate 95, normal intervals, normal axis no ST elevations. Cardiac monitoring: An order was placed for continuous cardiac monitoring. The monitor shows a rate of 89 with sinus rhythm. Patient was placed on pulse oximetry Medical decision rules: None Imaging studies: See below HPI: Patient presents due to concern for urinary symptoms. She reports that she has had some associated dysuria as well as an episode of incontinence yesterday as well as today. No back pain. Patient denies any falls or trauma. Reviewed the records that show that back in June and the patient did have an ESBL and Proteus. Patient reportedly has had some confusion. No chest pain or shortness of breath. Patient reports that she recently did have a medication change with her amlodipine with Dr. Tsang but this was down titrated after she developed some ankle swelling. No bowel incontinence and the patient denies any leg weakness. PAST MEDICAL HISTORY: See Below PAST SURGICAL HISTORY: See Below SOCIAL HISTORY: See Below HOME MEDICATIONS: See Below ALLERGIES: See Below VITALS: See Below PHYSICAL EXAMINATION: GENERAL: NAD, non-toxic. EYE EXAM: Normal conjunctiva. PERRL, no anisocoria and EOM's grossly intact w/o pain. OROPHARYNX: Moist mucus membranes, grossly normal dentition. NECK: Trachea midline, no stridor. LUNGS: Clear to auscultation. Normal chest wall mechanics. HEART: NSR, no MRG. ABDOMEN: Abdomen soft, non-tender, no masses, no rebound or guarding. BACK: No CVA TTP. SKIN: No rashes and no bruising. UPPER EXTREMITIES: Upper extremities are grossly normal. LOWER EXTREMITIES: Grossly normal, no edema. NEURO EXAM: Awake and alert, follows commands, no obvious facial asymmetry, normal speech, moves all 4 extremities. Past Med/Surg History Problem List (Updated 12/15/24 @ 11:18 by Deejay Hawkins MD) Leukocytosis (Acute) Dysuria (Acute) Hyponatremia (12/12/10) Hypertension Factor V Leiden mutation Asthma Postmenopausal atrophic vaginitis Osteoporosis Deviated nasal septum Chronic reflux esophagitis Chronic interstitial cystitis Neutrophilic leukocytosis Encopresis Constipation by delayed colonic transit Confusion with nonfocal neurological examination Abdominal pain Polyuria Hyperlipidemia Factor V Leiden Peripheral neuropathy (Chronic) Osteoarthritis of left knee (Chronic) Seasonal allergic conjunctivitis (Chronic 12/12/10) Asthma (Chronic) Lumbar radiculopathy (Chronic) Synovial cyst of lumbar facet joint (Chronic) Hyponatremia (Chronic) Hypertension (Chronic) Nodule of esophagus Ganglion cyst of tendon sheath of right hand Lumbar facet joint syndrome (Chronic) Vitamin D deficiency (Chronic) GERD (gastroesophageal reflux disease) Spinal stenosis (Chronic) Medical History Slowing of urinary stream Plantar fasciitis Pelvic pain Dermatitis of ear canal Allergic rhinitis History of ESBL E. coli infection DVT (deep venous thrombosis) LEFT LEG (WAS TAKING WARFARIN 2011) Pes anserinus bursitis of left knee Fever after vaccination COVID-19 Fracture, humerus, proximal Status post administration of all doses of COVID-19 vaccine series Asthma pt reports rare use of PRN inh Diarrhea Transient ischemic attack (TIA) 02/08/2012 (NO CURRENT PROBLEMS) History of colitis Surgical History History of cataract surgery RT/LEFT S/P wrist surgery LEFT History of surgery on arm RT ARM History of bilateral tubal ligation History of esophagogastroduodenoscopy (EGD) History of colonoscopy History of tooth extraction Family History Mother Family history of diabetes mellitus Aunt Family hx of colon cancer Other No family history of adverse response to anesthesia Social History Smoking Status: Never smoker Tobacco Type: Cigarettes Second Hand Exposure: No; Do You Dip or Chew Tobacco: No; Hx Alcohol Use: No Hx Substance Use: No Preferred Language: Albanian Communication Ability: Effective Visual Impairment: No Limitations Hearing Ability: Normal Coffee Supervisor Required: No Beliefs That Will Affect Care: None marital status: Current Living Situation: Spouse Current Living Situation Comment: house current occupational status: retired Feels Safe at Home: Yes Assistive Devices: Hospital Bed and Walker Allergies Allergies Allergy/AdvReac Type Severity Reaction Status Date / Time adhesive Allergy Mild RASH WITH Verified 12/14/24 14:33 EXTENDED USE bacitracin Allergy Mild RASH Verified 12/14/24 14:33 latex Allergy Mild RASH WITH Verified 12/14/24 14:33 LONGER EXPOSURE neomycin Allergy Mild RASH Verified 12/14/24 14:33 polymyxin B Allergy Mild RASH Verified 12/14/24 14:33 Sulfa (Sulfonamide Allergy Mild RASH Verified 12/14/24 14:33 Antibiotics) indomethacin AdvReac Mild "FEEL Verified 12/14/24 14:33 STRANGE AND OUT OF IT" Home Meds Home Medications Medication Instructions Recorded Confirmed aspirin 325 mg tablet 325 mg PO QAM 05/23/18 12/14/24 calcium 600 mg (as 0 cap PO QDL 05/23/18 12/14/24 carbonate)-vitamin D3 62.5 mcg (2,500 unit) capsule esomeprazole magnesium 40 mg 0 mg PO DAILYBB 05/23/18 12/14/24 capsule,delayed release (Nexium) montelukast 10 mg tablet 10 mg PO HS 05/23/18 12/14/24 (Singulair) multivitamin 1 tab PO QDL 05/23/18 12/14/24 vitamin E 268 mg (400 unit) capsule 400 unit PO QDL 01/26/19 12/14/24 calcium carbonate (Tums Ultra) 400 mg PO DIRECTED PRN Gi Upset 05/10/19 12/14/24 fluticasone propionate 50 0 spray intranasal QAM 07/29/20 12/14/24 mcg/actuation nasal spray,suspension albuterol sulfate 90 mcg/actuation 2 puff inhalation QID PRN 03/01/23 12/14/24 aerosol inhaler (ProAir HFA) Shortness Of Breath Or Wheezing famotidine 20 mg tablet 20 mg PO HS 03/01/23 12/14/24 atorvastatin 40 mg tablet 40 mg PO QAM 06/18/24 12/14/24 levothyroxine 75 mcg tablet 75 mcg PO QAM 06/18/24 12/14/24 (Synthroid) vitamin B complex 1 tab PO QAM 06/18/24 12/14/24 acetaminophen 500 mg tablet 500 mg PO QID PRN Pain 08/14/24 12/14/24 albuterol sulfate 90 mcg/actuation 0 puff inhalation QID SOB 08/14/24 12/14/24 aerosol inhaler [id number] 0 tab PO DAILY 08/14/24 12/14/24 750 mg-100 mg-125 mg-1.65 mg tablet (Glucosamine Chondroit Complx Advan) pantoprazole 40 mg tablet,delayed 0 mg PO DAILY 08/14/24 12/14/24 release potassium chloride 20 mEq/15 mL 0 meq PO BID 08/14/24 12/14/24 oral liquid diclofenac sodium 1 % topical gel 0 g EXT BID 12/14/24 12/14/24 (Voltaren Arthritis Pain) furosemide 20 mg tablet 0 mg PO Q OTHER DAY 12/14/24 12/14/24 sodium chloride 1,000 mg soluble 0 mg PO DAILY 12/14/24 12/14/24 tablet Previous Rx's Medication Instructions Recorded methenamine hippurate 1 gram tablet 1 g PO BID #180 tabs 11/22/24 amlodipine 2.5 mg tablet 2.5 mg PO DAILY #180 tabs 12/13/24 polyethylene glycol 3350 17 gram 17 g PO DAILY 30 days #30 ea 12/15/24 oral powder packet (Miralax) Results & Data (ED) Vital Signs Vital Signs - 24 hr 12/14/24 08:44 12/14/24 09:11 12/14/24 09:28 Temperature 36.5 C Temperature Source Temporal Artery Scan Pulse Rate 99 H 102 H 95 H Pulse Rate from SpO2 Sensor Pulse Rhythm Regular Respiratory Rate 18 20 Blood Pressure 155/79 H Blood Pressure Mean 104 Pulse Oximetry 99 Oxygen Delivery Method Room Air Room Air Sepsis New/Unexplained Change in Mental Status No Sepsis Action Taken by Nursing No Action Required 12/14/24 10:10 12/14/24 10:30 12/14/24 10:30 Temperature Temperature Source Pulse Rate 91 H 90 95 H Pulse Rate from SpO2 Sensor 89 Pulse Rhythm Respiratory Rate 20 16 19 Blood Pressure 181/92 H 188/101 H 188/101 H Blood Pressure Mean 107 124 124 Pulse Oximetry 98 97 98 Oxygen Delivery Method Room Air Room Air Sepsis New/Unexplained Change in Mental Status Sepsis Action Taken by Halfway Medications Current Medication List: was personally reviewed by me Laboratory Data Attestation: I reviewed the patient's lab results. 12/14/24 09:21 12/14/24 09:21 Lab Results 12/14/24 12/14/24 12/14/24 Range/Units 09:21 09:35 11:40 WBC 18.56 H (4.8-10.8) K/ul RBC 4.78 (4.20-5.40) M/uL Hgb 13.8 (12.0-16.0) g/dl Hct 41.6 (37.0-47.0) % MCV 87.0 (80.0-100.0) fL MCH 28.9 (25.0-34.0) pg MCHC 33.2 (32.0-36.0) g/dL RDW Std Deviation 41.0 (36.4-46.3) fL RDW Coeff of Chrissie 12.9 (11.5-14.5) % Plt Count 308 (130-400) K/uL MPV 11.0 (9.4-12.4) fL Neutrophils % (Manual) 81 % Lymphocytes % (Manual) 16 % Monocytes % (Manual) 2 % Myelocytes % (Man) 1 % Neutrophils # (Manual) 15.03 H (1.40-6.50) K/uL Total Absolute Neuts 15.03 H (1.4-6.5) K/uL Lymphocytes # (Manual) 2.97 (1.2-3.4) K/uL Total Abs Lymphocytes 2.97 (1.2-3.4) K/uL Monocytes # (Manual) 0.37 (0.11-0.59) K/uL Myelocytes # (Manual) 0.19 H (0-0) K/uL Sodium 138 (136-145) mmol/L Potassium 4.0 (3.5-5.1) mmol/L Chloride 105 (98-107) mmol/L Carbon Dioxide 25 (21-32) mmol/L Anion Gap 8 (3-11) BUN 21 (6-23) mg/dl Creatinine 0.67 (0.6-1.2) mg/dl Est Cr Clr Drug Dosing 79.3 ml/min eGFR 89.41 BUN/Creatinine Ratio 31.3 H (10-20) Glucose 139 H (70-99(Fasting)) mg/dl Lactate 0.8 (0.4-2.0) mmol/L Calcium 9.5 (8.6-10.3) mg/dl Magnesium 2.0 (1.7-2.4) mg/dl Total Bilirubin 0.5 (0.2-1.0) mg/dl AST 24 (13-39) U/L ALT 19 (7-52) U/L Alkaline Phosphatase 61 (34-104) U/L Total Protein 7.1 (6.0-8.3) gm/dl Albumin 4.2 (3.4-5.0) gm/dl Globulin 2.9 (2.5-4.0) gm/dl Albumin/Globulin Ratio 1.4 (0.9-2) Procalcitonin < 0.02 (0-0.5) ng/ml TSH 0.864 (0.300-4.500) uIu/ml Urine Color Yellow Urine Appearance Clear (Clear) Urine pH 7.0 (4.5-7.5) Ur Specific [place] 1.014 (1.000-1.030) Urine Protein Negative (Negative) Urine Glucose (UA) Negative (Negative) Urine Ketones Negative (Negative) Urine Blood Negative (Negative) Urine Nitrite Negative (Negative) Urine Bilirubin Negative (Negative) Urine Urobilinogen Negative (Negative) Ur Leukocyte Esterase Negative (Negative) Urine Comment Hepatitis C Ab Screen Negative (Negative) Administered Medications Discontinued Medications Amlodipine Besylate (Amlodipine Besylate 5 Mg Tab) 2.5 mg PO DAILY JEANMARIE Stop: 01/13/25 13:59 Last Admin: 12/15/24 07:53 Dose: 2.5 mg Documented By: Admin: 12/14/24 16:27 Dose: 2.5 mg Documented By: BAHMAN Atorvastatin Calcium (Atorvastatin 40 Mg Tab) 40 mg PO QAM JEANMARIE Stop: 01/14/25 08:59 Last Admin: 12/15/24 07:54 Dose: 40 mg Documented By: BAHMAN Enoxaparin Sodium (Enoxaparin Inj 40 Mg/0.4 Ml Syr) 40 mg SQ Q24H JEANMARIE Stop: 01/13/25 13:59 Last Admin: 12/14/24 16:28 Dose: 40 mg Documented By: BAHMAN Famotidine (Famotidine 20 Mg Tab) 20 mg PO HS JEANMARIE Stop: 01/13/25 20:59 Last Admin: 12/14/24 21:47 Dose: 20 mg Documented By: [id number] Ertapenem (Invanz 1000mg) 1,000 mg in 10 mls @ 2 mls/min IV NOW STA Stop: 12/14/24 11:23 Last Admin: 12/14/24 12:38 Dose: 2 mls/min Documented By: FG Levothyroxine Sodium (Levothyroxine Sodium 75 Mcg Tablet) 75 mcg PO DAILYBB JEANMARIE Stop: 01/14/25 06:29 Last Admin: 12/15/24 06:12 Dose: 75 mcg Documented By: [id number] Montelukast Sodium (Montelukast Sodium 10 Mg Tablet) 10 mg PO HS JEANMARIE Stop: 01/13/25 20:59 Last Admin: 12/14/24 21:47 Dose: 10 mg Documented By: [id number] Pantoprazole Sodium (Pantoprazole 40 Mg Tab) 40 mg PO DAILY JEANMARIE Stop: 01/14/25 08:59 Last Admin: 12/15/24 07:54 Dose: 40 mg Documented By: BAHMAN Polyethylene Glycol (Polyethylene (Miralax) 17 Gm Pack) 34 gm PO BID JEANMARIE Stop: 01/13/25 20:59 Last Admin: 12/15/24 07:55 Dose: Not Given Documented By: Admin: 12/14/24 21:47 Dose: 34 gm Documented By: [id number] Sennosides (Senna 8.6 Mg Tab) 17.2 mg PO QAM [facility] Stop: 01/13/25 13:54 Last Admin: 12/15/24 07:55 Dose: Not Given Documented By: Admin: 12/14/24 16:26 Dose: 17.2 mg Documented By: BAHMAN Imaging Data Radiologist's Impression: Chest X-Ray 12/14/24 09:01 XR chest 1V portable CLINICAL HISTORY: weakness COMPARISON STUDY: 06/18/2024 FINDINGS: Heart size and pulmonary vasculature are normal. There is mild stranding opacity at the left lung base. No other consolidation or pleural effusion. No pneumothorax. IMPRESSION: Atelectasis versus early pneumonia left lung base. ACT 112: Negative or not required by law. Electronically signed by: Andre Teran M.D. 12/14/2024 9:[address] 12/14/24 09:01 CT head/brain wo con CLINICAL HISTORY: confusion. TECHNIQUE: Multiple axial CT images of the head were obtained without contrast. A dose lowering technique was utilized adhering to the principles of ALARA. CT DOSE: 625.8 mGy.cm COMPARISON: 06/18/2024 FINDINGS: No intracranial hemorrhage seen. Stable mild prominence of the ventricles out of proportion to the sulci, cerebral atrophy versus mild normal pressure hydrocephalus. No mass effect or midline shift. Stable moderate chronic small vessel ischemic change. No skull fracture seen. Visualized paranasal sinuses and mastoid air cells are clear. IMPRESSION: No acute findings. ACT 112: Negative or not required by law. The above report was generated using voice recognition software. It may contain grammatical, syntax or spelling errors. Electronically signed by: Andre Teran M.D. 12/14/2024 10:03 AM Discharge Plan Visit Data Chief Complaint: Urinary Symptoms Stated Complaint: CONFUSED, WEAK, FREQUENT URINATING ED Provider: Deejay Hawkins Discharge Problem: Dysuria, Leukocytosis Patient Disposition: Admitted As Inpatient Condition: Good Discharge Instructions Interventions: ED Discharge Assessment Last Done: 12/14/24 13:35 Discharge Problem: Leukocytosis Qualifiers: Leukocytosis type: unspecified Qualified Code(s): D72.829 - Elevated white blood cell count, unspecified
--- NOTE | 2024-12-14 09:35 | XRay Report ---
XR chest 1V portable CLINICAL HISTORY: weakness COMPARISON STUDY: 06/18/2024 FINDINGS: Heart size and pulmonary vasculature are normal. There is mild stranding opacity at the lef t lung base. No other consolidation or pleural effusion. No pneumothorax. IMPRESSION: Atelectasis versus early pneumonia left lung base. ACT 112: Negative or not required by law. Electronically signed by: Andre Teran M.D. 12/14/2024 9:34 AM
[2024-12-14 09:53] LABS: Appearance Urine Clear (Clear); Glucose Urine UA Negative (Negative)
[2024-12-14 09:55] LABS: Hematocrit (blood only) 41.6 % (37.0-47.0); Hemoglobin 13.8 g/dl (12.0-16.0); Mean Corpuscular Hemoglobin 28.9 pg (25.0-34.0); Mean Corpuscular Volume 87.0 fL (80.0-100.0); Platelet Count 308 K/uL (130-400); RDW Standard Deviation 41.0 fL (36.4-46.3); Red Blood Count 4.78 M/uL (4.20-5.40)
--- NOTE | 2024-12-14 10:05 | CT Scan Report ---
CT head/brain wo con CLINICAL HISTORY: confusion. TECHNIQUE: Multiple axial CT images of the head were obtained without contrast. A dose lowering tech nique was utilized adhering to the principles of ALARA. CT DOSE: 625.8 mGy.cm COMPARISON: 06/18/2024 FINDINGS: No intracranial hemorrhage seen. Stable mild prominence of the ventricles out of proportion to the sulci, cerebral atrophy versus mild normal pressure hydrocephalus. No mass effect or midline shift. Stable moderate chronic small vessel ischemic change. No skull fracture seen. Visualized paran simon sinuses and mastoid air cells are clear. IMPRESSION: No acute findings. ACT 112: Negative or not required by law. The above report was generated using voice recognition software. It may contain grammatical, syntax o r spelling errors. Electronically signed by: Andre Teran M.D. 12/14/2024 10:03 AM
[2024-12-14 10:08] LABS: Alanine Aminotransferase 19.0 U/L (7-52); Albumin Globulin Ratio 1.4 (0.9-2); Albumin Level 4.2 gm/dl (3.4-5.0); Alkaline Phosphatase 61.0 U/L (34-104); Anion Gap 8.0 (3-11); Bilirubin,Total 0.5 mg/dl (0.2-1.0); Blood Urea Nitrogen 21.0 mg/dl (6-23); Calcium 9.5 mg/dl (8.6-10.3); Carbon Dioxide 25.0 mmol/L (21-32); Chloride 105.0 mmol/L (98-107); Creatinine Clr Calc Pharmacy 79.3 ml/min; Globulin 2.9 gm/dl (2.5-4.0); Glucose 139.0 mg/dl (70-99(Fasting)); Magnesium 2.0 mg/dl (1.7-2.4); Potassium 4.0 mmol/L (3.5-5.1); Sodium 138.0 mmol/L (136-145); Total Protein 7.1 gm/dl (6.0-8.3)
[2024-12-14 10:22] LABS: Thyroid Stimulating Hormone 0.864 uIu/ml (0.300-4.500)
[2024-12-14 11:07] LABS: White Blood Count 18.56 K/ul (4.8-10.8)
[2024-12-14 11:11] LABS: ALC (manual) 2.97 K/uL (1.2-3.4); ANC (manual) 15.03 K/uL (1.4-6.5)
[2024-12-14] MEDS: ERTAPENEM 1000MG 1,000 MG/10 ML SYR IV STA (12:38)
--- NOTE | 2024-12-14 14:32 | History & Physical Report ---
Date of Service December 14, 2024 Assessment & Plan (1) Constipation by delayed colonic transit: (2) Encopresis: (3) Confusion with nonfocal neurological examination: (4) Polyuria: (5) Abdominal pain: (6) Factor V Leiden: Plan In summary this is a 79-year-old female who presented due to concerns of a potential developing urinary tract infection, now, concerning for severe constipation resulting in urinary retention and intermittent confusion #Encopresis // Constipation induced urinary retention Clinically the patient appears to be significantly constipated based on physical exam; their history of recent diarrhea which has been an intermittent long-term issue is concerning for potential encopresis. Constipation is well-known to cause mild confusion as well as urinary retention, especially in the elderly, given the absence of associated infectious findings detailed below this is the most likely source of their recent symptomatology. It was discussed with the patient and her spouse at bedside regarding utility of further imaging to fully verify the presence of constipation and any associated complications related to this, they deferred at this time Start MiraLAX 34 g p.o. twice daily Start Senokot 17.6 mg p.o. twice daily Encourage regular ambulation as the patient tolerates, transfer from bed to chair #Prior urinary MDRO // Leukocytosis Patient does have a history of a multidrug-resistant organism, isolated in the urine culture earlier in 2024; at this time the only evidence on physical exam as well as laboratory assessment is a leukocytosis; patient's urine is without any rodrigo evidence of infection, nor is there procalcitonin elevated; furthermore they have no clinical findings nor is there history consistent with a urinary tract infection; at this time, after shared decision making through discussion with patient and her spouse, we will defer antibiotic management at this time with close clinical monitoring With respect to the patient's remaining chronic medical conditions, the medica tions will be continued as deemed appropriate; and lieu of continued daily aspirin, the patient will receive DVT prophylaxis with Lovenox Admission and Anticipated Discharge Date Admission Date: December 14, 2024 Anticipated date of discharge: 12/16/24 History of Present Illness Chief Complaint: Confusion Primary Care Provider: Magda Taylor DO Ms. Valentino a 79-year-old female whose active medical conditions include hypertension, hyperlipidemia, chronic hyponatremia, factor V Leiden mutation among other chronic medical conditions who presented to the [facility] on 09/13 due to subacute intermittent confusion, increased urinary frequency for which the patient and their spouse were concerned about possible urinary tract infection as these made her symptoms that have led to such diagnoses in the past. The patient provides the majority of the history with supplemental information provided by their spouse at bedside; they describe over the past 4 days they have had intermittent episodes of confusion without significant disorientation or behavioral change. These have been waxing and waning without any specific as sociated triggers, or occurring at specific times of day. The patient notes that they have had episodes of increased urinary frequency over the past several days as well in addition to some episodes of sudden incontinence without much warning of a need to urinate. They did have multiple episodes of diarrhea over the past weekend for which they took 2 doses of Imodium on 12/10 which led to relief, however they have not had any subsequent bowel movements since that time. They do note left lower abdominal discomfort, without any radiation or spreading nor worsening with any particular activities. He denied any fevers, chills, nausea, vomiting, dysuria, hematuria, polydipsia, recent antibiotic courses or new medications. Allergies Allergy/AdvReac Type Severity Reaction Status Date / Time adhesive Allergy Mild RASH WITH Verified 12/14/24 14:33 EXTENDED USE bacitracin Allergy Mild RASH Verified 12/14/24 14:33 latex Allergy Mild RASH WITH Verified 12/14/24 14:33 LONGER EXPOSURE neomycin Allergy Mild RASH Verified 12/14/24 14:33 polymyxin B Allergy Mild RASH Verified 12/14/24 14:33 Sulfa (Sulfonamide Allergy Mild RASH Verified 12/14/24 14:33 Antibiotics) indomethacin AdvReac Mild "FEEL Verified 12/14/24 14:33 STRANGE AND OUT OF IT" Home Medications Medication Instructions Recorded Confirmed Type aspirin 325 mg tablet 325 mg PO QAM 05/23/18 12/14/24 History calcium 600 mg (as 0 cap PO QDL 05/23/18 12/14/24 History carbonate)-vitamin D3 62.5 mcg (2,500 unit) capsule esomeprazole magnesium 40 mg 0 mg PO DAILYBB 05/23/18 12/14/24 History capsule,delayed release (Nexium) ipratropium bromide 21 mcg (0.03 0 sprays intranasal DAILY 05/23/18 12/14/24 History %) nasal spray montelukast 10 mg tablet 10 mg PO HS 05/23/18 12/14/24 History (Singulair) multivitamin 1 tab PO QDL 05/23/18 12/14/24 History vitamin E 268 mg (400 unit) capsule 400 unit PO QDL 01/26/19 12/14/24 History calcium carbonate (Tums Ultra) 400 mg PO DIRECTED PRN Gi Upset 05/10/19 12/14/24 History fluticasone propionate 50 0 spray intranasal QAM 07/29/20 12/14/24 History mcg/actuation nasal spray,suspension albuterol sulfate 90 mcg/actuation 2 puff inhalation QID PRN 03/01/23 12/14/24 History aerosol inhaler (ProAir HFA) Shortness Of Breath Or Wheezing famotidine 20 mg tablet 20 mg PO HS 03/01/23 12/14/24 History atorvastatin 40 mg tablet 40 mg PO QAM 06/18/24 12/14/24 History levothyroxine 75 mcg tablet 75 mcg PO QAM 06/18/24 12/14/24 History (Synthroid) vitamin B complex 1 tab PO QAM 06/18/24 12/14/24 History azelastine 137 mcg-fluticasone 50 0 spray intranasal BID 08/06/24 12/14/24 History mcg/spray nasal spray ondansetron HCl 8 mg tablet 8 mg PO Q8H PRN nausea and vomiting 08/06/24 12/14/24 History acetaminophen 500 mg tablet 500 mg PO QID PRN Pain 08/14/24 12/14/24 History albuterol sulfate 90 mcg/actuation 0 puff inhalation QID SOB 08/14/24 12/14/24 History aerosol inhaler [id number] 0 tab PO DAILY 08/14/24 12/14/24 History 750 mg-100 mg-125 mg-1.65 mg tablet (Glucosamine Chondroit Complx Advan) pantoprazole 40 mg tablet,delayed 0 mg PO DAILY 08/14/24 12/14/24 History release potassium chloride 20 mEq/15 mL 0 meq PO BID 08/14/24 12/14/24 History oral liquid methenamine hippurate 1 gram tablet 1 g PO BID #180 tabs 11/22/24 12/14/24 Rx amlodipine 2.5 mg tablet 2.5 mg PO DAILY #180 tabs 12/13/24 12/14/24 Rx diclofenac sodium 1 % topical gel 0 g EXT BID 12/14/24 12/14/24 History (Voltaren Arthritis Pain) furosemide 20 mg tablet 0 mg PO Q OTHER DAY 12/14/24 12/14/24 History sodium chloride 1,000 mg soluble 0 mg PO DAILY 12/14/24 12/14/24 History tablet Past Med/Surg History Problem List (Updated 12/14/24 @ 14:29 by Paul Peralta DO) Hyponatremia (12/12/10) Hypertension Factor V Leiden mutation Asthma Postmenopausal atrophic vaginitis Osteoporosis Deviated nasal septum Chronic reflux esophagitis Chronic interstitial cystitis Neutrophilic leukocytosis Encopresis Constipation by delayed colonic transit Confusion with nonfocal neurological examination Abdominal pain Polyuria Hyperlipidemia Factor V Leiden Peripheral neuropathy (Chronic) Osteoarthritis of left knee (Chronic) Seasonal allergic conjunctivitis (Chronic 12/12/10) Asthma (Chronic) Lumbar radiculopathy (Chronic) Synovial cyst of lumbar facet joint (Chronic) Hyponatremia (Chronic) Hypertension (Chronic) Nodule of esophagus Ganglion cyst of tendon sheath of right hand Lumbar facet joint syndrome (Chronic) Vitamin D deficiency (Chronic) GERD (gastroesophageal reflux disease) Spinal stenosis (Chronic) Medical History Slowing of urinary stream Plantar fasciitis Pelvic pain Dermatitis of ear canal Allergic rhinitis History of ESBL E. coli infection DVT (deep venous thrombosis) LEFT LEG (WAS TAKING WARFARIN 2011) Pes anserinus bursitis of left knee Fever after vaccination COVID-19 Fracture, humerus, proximal Status post administration of all doses of COVID-19 vaccine series Asthma pt reports rare use of PRN inh Diarrhea Transient ischemic attack (TIA) 02/08/2012 (NO CURRENT PROBLEMS) History of colitis Surgical History History of cataract surgery RT/LEFT S/P wrist surgery LEFT History of surgery on arm RT ARM History of bilateral tubal ligation History of esophagogastroduodenoscopy (EGD) History of colonoscopy History of tooth extraction Family History Mother Family history of diabetes mellitus Aunt Family hx of colon cancer Other No family history of adverse response to anesthesia Social History Smoking Status: Never smoker Tobacco Type: Cigarettes Second Hand Exposure: No; Do You Dip or Chew Tobacco: No; Hx Alcohol Use: No Hx Substance Use: No Preferred Language: Polish Communication Ability: Effective Visual Impairment: No Limitations Hearing Ability: Normal Peer Tutor Required: No Beliefs That Will Affect Care: None marital status: Current Living Situation: Spouse Current Living Situation Comment: house current occupational status: retired Feels Safe at Home: Yes Safety Concerns: Feels Safe At This Time Assistive Devices: Hospital Bed and Walker Review of Systems Review of Systems: Review of constitutional, cardiovascular, pulmonary, gastrointestinal, genitourinary, neurologic systems was unremarkable except for pertinent positive and negative findings described in the HPI above Physical Exam Physical Exam: General: Elderly female in no acute distress Vital Signs: Reviewed; persistently hypertensive HEENT: Pupils equally round and reactive to light; extraocular motion intact; moist mucous membranes Pulmonary: Symmetric chest wall excursion without restriction; clear to auscultation bilaterally Cardiovascular: Regular rate and rhythm without murmurs, rubs, or gallops; S1 and S2 normal; right radial pulse 2+ with brisk capillary refill Gastrointestinal: Soft, protuberant; tenderness to palpation noted in the left lower and mid abdomen without radiation; remaining abdomen is nontender to palpation; low-frequency normal pitch bowel sounds present throughout; notable fullness in the left lower and mid abdomen along the normal course of the descending colon, otherwise no masses appreciated; no acute peritoneal findings Genitourinary: Pure wick catheter present, urine collected is pale yellow without sediment, translucent Neurologic: Cranial nerves II through XII grossly intact; no discernible focal weakness no paresthesias; alert and oriented to self, place, time, circumstance Results & Data Results & Data Vital Signs (Past 12 Hours) Vital Signs Temp Pulse Pulse Resp BP BP Pulse Ox 12/14/24 13:55 36.8 C 80 16 138/86 96 12/14/24 13:35 81 16 172/89 H 98 12/14/24 12:30 85 18 166/93 H 96 12/14/24 12:27 92 H 20 173/105 H 97 12/14/24 10:30 95 H 19 188/101 H 98 12/14/24 10:30 90 16 188/101 H 97 12/14/24 10:10 91 H 20 181/92 H 98 12/14/24 09:28 95 H 12/14/24 09:11 102 H 20 12/14/24 08:44 36.5 C 99 H 18 155/79 H 99 O2 Del Method 12/14/24 13:55 Room Air 12/14/24 13:35 Room Air 12/14/24 12:30 Room Air 12/14/24 12:27 12/14/24 10:30 12/14/24 10:30 Room Air 12/14/24 10:10 Room Air 12/14/24 09:28 12/14/24 09:11 Room Air 12/14/24 08:44 Room Air Laboratory Results Leukocytosis of 18.5 thousand with a neutrophilic predominance CMP unremarkable Procalcitonin unmeasurable Urinalysis without remarkable findings Diagnostic Findings Unfortunately, plain film of the chest and head CT are unable for direct review due to technological complications however reports are available for review; notable to have a potential left lung base atelectasis versus pneumonia on the chest film; head CT was without any acute findings ECG Additional Comments: Unremarkable Code Status & VTE Plan Code Status Full Code VTE Prophylaxis Plan VTE Prophylaxis will be ordered: Yes PG Care Time/CCT Total # of Minutes Spent Total Time Spent with Patient: Total time spent is greater than 50% in coordination of care (as documented) at patient's floor/unit and/or counseling patient: Coding Level of Care Code 71429 INT INP/OBS CARE 255MIN Diagnoses Constipation by delayed colonic transit K59.01 Encopresis R15.9 Confusion with nonfocal neurological examination R41.0 Polyuria R35.89 Abdominal pain of multiple sites R10.85 Abdominal location: multiple sites Factor V Leiden D68.51 (5) Abdominal pain Abdominal location: multiple sites Qualified Code(s): R10.85 - Abdominal pain of multiple sites
[2024-12-14] MEDS: SENNA 8.6 MG TAB PO SCH (16:26)
[2024-12-14] MEDS: ENOXAPARIN INJ 40 MG/0.4 ML SYR SQ SCH (16:28)
[2024-12-14] MEDS: POLYETHYLENE (MIRALAX) 17 GM PACK PO SCH (21:47)
[2024-12-14] MEDS: MONTELUKAST SODIUM 10 MG TABLET PO SCH (21:47)
[2024-12-14] MEDS: FAMOTIDINE 20 MG TAB PO SCH (21:47)
[2024-12-15] MEDS: LEVOTHYROXINE SODIUM 75 MCG TABLET PO SCH (06:12)
[2024-12-15 07:48] VITALS: BP 185/82; PULSE 88; RESP 18; TEMP 97.7; O2SAT 94
[2024-12-15] MEDS: ATORVASTATIN 40 MG TAB PO SCH (07:54)
--- NOTE | 2024-12-15 07:56 | Hospitalist Progress Note ---
Date of Service December 15, 2024 Assessment & Plan (1) Constipation by delayed colonic transit: (2) Encopresis: (3) Confusion with nonfocal neurological examination: (4) Polyuria: (5) Abdominal pain: (6) Factor V Leiden: Plan In summary this is a 79-year-old female who presented due to concerns of a potential developing urinary tract infection, now, concerning for severe constipation resulting in urinary retention and intermittent confusion #Encopresis // Constipation induced urinary retention Clinically the patient appears to be significantly constipated based on physical exam; their history of recent diarrhea which has been an intermittent long-term issue is concerning for potential encopresis. Constipation is well-known to cause mild confusion as well as urinary retention, especially in the elderly, given the absence of associated infectious findings detailed below this is the most likely source of their recent symptomatology. It was discussed with the patient and her spouse at bedside regarding utility of further imaging to fully verify the presence of constipation and any associated complications related to this, they deferred at this time Start MiraLAX 34 g p.o. twice daily Start Senokot 17.6 mg p.o. twice daily Encourage regular ambulation as the patient tolerates, transfer from bed to chair #Prior urinary MDRO // Leukocytosis Patient does have a history of a multidrug-resistant organism, isolated in the urine culture earlier in 2024; at this time the only evidence on physical exam as well as laboratory assessment is a leukocytosis; patient's urine is without any rodrigo evidence of infection, nor is there procalcitonin elevated; furthermore they have no clinical findings nor is there history consistent with a urinary tract infection; at this time, after shared decision making through discussion with patient and her spouse, we will defer antibiotic management at this time with close clinical monitoring With respect to the patient's remaining chronic medical conditions, the medica tions will be continued as deemed appropriate; and lieu of continued daily aspirin, the patient will receive DVT prophylaxis with Lovenox Admission and Anticipated Discharge Date Admission Date: December 14, 2024 Subjective Ms. Valentino a 79-year-old female whose active medical conditions include hypertension, hyperlipidemia, chronic hyponatremia, factor V Leiden mutation among other chronic medical conditions who presented to the [facility] on 09/13 due to subacute intermittent confusion, increased urinary frequency for which the patient and their spouse were concerned about possible urinary tract infection as these made her symptoms that have led to such diagnoses in the past. The patient was ultimately admitted for severe constipation resulting in encopresis, urinary retention, and mild confusion. Review of Systems Review of Systems: Review of constitutional, cardiovascular, pulmonary, gastrointestinal, genitourinary, neurologic systems was unremarkable except for pertinent positive and negative findings described in the HPI above Physical Exam Physical Exam: General: Elderly female in no acute distress Vital Signs: Reviewed; persistently hypertensive HEENT: Pupils equally round and reactive to light; extraocular motion intact; moist mucous membranes Pulmonary: Symmetric chest wall excursion without restriction; clear to auscultation bilaterally Cardiovascular: Regular rate and rhythm without murmurs, rubs, or gallops; S1 and S2 normal; right radial pulse 2+ with brisk capillary refill Gastrointestinal: Soft, protuberant; tenderness to palpation noted in the left lower and mid abdomen without radiation; remaining abdomen is nontender to palpation; low-frequency normal pitch bowel sounds present throughout; notable fullness in the left lower and mid abdomen along the normal course of the descending colon, otherwise no masses appreciated; no acute peritoneal findings Genitourinary: Pure wick catheter present, urine collected is pale yellow without sediment, translucent Neurologic: Cranial nerves II through XII grossly intact; no discernible focal weakness no paresthesias; alert and oriented to self, place, time, circumstance Results & Data Results & Data Vital Signs (Past 12 Hours) Vital Signs Temp Pulse Resp BP Pulse Ox O2 Del Method 12/15/24 07:47 36.5 C 88 18 185/82 H 94 Room Air 12/14/24 22:50 36.7 C 80 16 162/80 H 95 Room Air PG Care Time/CCT Total # of Minutes Spent Total Time Spent with Patient: Total time spent is greater than 50% in coordination of care (as documented) at patient's floor/unit and/or counseling patient: Coding Diagnoses Constipation by delayed colonic transit K59.01 Encopresis R15.9 Confusion with nonfocal neurological examination R41.0 Polyuria R35.89 Abdominal pain of multiple sites R10.85 Abdominal location: multiple sites Factor V Leiden D68.51 (5) Abdominal pain Abdominal location: multiple sites Qualified Code(s): R10.85 - Abdominal pain of multiple sites
[2024-12-15] MEDS ORDERED: POLYETHYLENE (MIRALAX) 17 GM PACK PO SCH (09:00)
--- NOTE | 2024-12-15 12:48 | Discharge Summary ---
Discharge Summary Date of Service December 15, 2024 Principal Dx & Hospital Course #1 = Principal Diagnosis (1) Constipation by delayed colonic transit: (2) Encopresis: (3) Confusion with nonfocal neurological examination: (4) Polyuria: (5) Abdominal pain: (6) Factor V Leiden: Plan In summary this is a 79-year-old female who presented due to concerns of a potential developing urinary tract infection, now, concerning for severe constipation resulting in urinary retention and intermittent confusion #Encopresis // Constipation induced urinary retention Clinically the patient appears to be significantly constipated based on physical exam; their history of recent diarrhea which has been an intermittent long-term issue is concerning for potential encopresis. Constipation is well-known to cause mild confusion as well as urinary retention, especially in the elderly, given the absence of associated infectious findings detailed below this is the most likely source of their recent symptomatology. It was discussed with the patient and her spouse at bedside regarding utility of further imaging to fully verify the presence of constipation and any associated complications related to this, they deferred. On the morning of 12/15 the patient had a robust bowel movement wihtout difficulty Continue MiraLAX 17 g p.o. daily with adjustment by increasing or decreasing by one half capful every 3-4 days to maintain one to two easily passed bowel movements daily Encourage regular ambulation #Prior urinary MDRO // Leukocytosis Patient does have a history of a multidrug-resistant organism, isolated in the urine culture earlier in 2024; at this time the only evidence on physical exam as well as laboratory assessment is a leukocytosis; patient's urine is without any rodrigo evidence of infection, nor is there procalcitonin elevated; furthermore they have no clinical findings nor is there history consistent with a urinary tract infection; at this time, after shared decision making through discussion with patient and her spouse, we will defer antibiotic management at this time with close clinical monitoring. Admission HPI Per Admitting Provider Daphnie JossieJeff a 79-year-old female whose active medical conditions include hypertension, hyperlipidemia, chronic hyponatremia, factor V Leiden mutation among other chronic medical conditions who presented to the [facility] on 09/13 due to subacute intermittent confusion, increased urinary frequency for which the patient and their spouse were concerned about possible urinary tract infection as these made her symptoms that have led to such diagnoses in the past. The patient provides the majority of the history with supplemental information provided by their spouse at bedside; they describe over the past 4 days they have had intermittent episodes of confusion without significant disorientation or behavioral change. These have been waxing and waning without any specific associated triggers, or occurring at specific times of day. The patient notes that they have had episodes of increased urinary frequency over the past several days as well in addition to some episodes of sudden incontinence without much warning of a need to urinate. They did have multiple episodes of diarrhea over the past weekend for which they took 2 doses of Imodium on 12/10 which led to relief, however they have not had any subsequent bowel movements since that time. They do note left lower abdominal discomfort, without any radiation or spreading nor worsening with any particular activities. He denied any fevers, chills, nausea, vomiting, dysuria, hematuria, polydipsia, recent antibiotic courses or new medications. Discharge Exam General: Elderly female in no acute distress Vital Signs: Reviewed HEENT: Pupils equally round and reactive to light; extraocular motion intact; moist mucous membranes Pulmonary: Symmetric chest wall excursion without restriction Gastrointestinal: Soft, protuberant; reduced, now mild, tenderness to palpation noted in the left lower quadrant without radiation; remaining abdomen is nontender to palpation; low-frequency normal pitch bowel sounds present throughout; previously noted fullness along the distal descending colon has resolved Genitourinary: Pure wick catheter present, urine collected is pale yellow without sediment, translucent Neurologic: Cranial nerves II through XII grossly intact; no discernible focal weakness no paresthesias; alert and oriented to self, place, time, circumstance Discharge Plan Discharge Items Patient Disposition: Home - Self-Care Reason For Visit: DYSURIA WITH ENCEPHALOPATHY Discharge Diagnosis: Severe constipation with urinary retention and confusion Condition on Discharge: Good Activity: Per Instructions section Non-emergency contact: Primary Care Provider Call non-emergency contact if: you have any medication questions and your symptoms worsen Follow-up/Referrals: Magda Taylor, [Primary Care Provider] - Diet: Regular Fluids: 2000ml (8 cups) Addtl Attending Provider Instructions: You were admitted to [facility] for constipation resulting in urinary retention and confusion. You admitted to the [facility] for continued observation due to initial concern for possible urinary tract infection, for which there is no clinical or laboratory evidence. Symptoms leading to presentation are most li vasquez related to constipation resulting in urinary retention and intermittent confusion, which can be seen especially in patients over the age of 65. You were treated with an initial dose of antibiotics in the emergency department empirically, however at this time there is no indication for continued antibiotics. Will continue to assess your provided urine sample for any bacterial growth and will contact you directly if there is anything concerning. Please continue to use MiraLAX 1 scoop daily adjusting by increasing or decreasing by one half capful every 3 to 4 days to maintain 1 easily passed soft bowel movement daily. Thank you for choosing [facility] as your healthcare provider. Pending Studies at Discharge: Yes Studies:: Urine culture Stand-Alone Forms: My [facility] Medications and DC Order Prescriptions: New polyethylene glycol 3350 [Miralax] 17 gram Powder In Packet 17 g PO DAILY 30 Days Qty: 30 0RF Continued aspirin 325 mg tablet 325 mg PO QAM Patient Comments: 12/14- otc unable to verify esomeprazole magnesium [Nexium] 40 mg capsule,delayed release(DR/EC) 0 mg PO DAILYBB Hold Instructions: Resume on 05/05/23. Patient Comments: 12/14- otc/no fill history unable to verify montelukast [Singulair] 10 mg tablet 10 mg PO HS multivitamin tablet 1 tab PO QDL Patient Comments: 12/14- otc unable to verify calcium carbonate-vitamin D3 600 mg (1,500 mg)-2,500 unit capsule 0 cap PO QDL Patient Comments: 12/14- otc unable to verify methenamine hippurate 1 gram tablet 1 g PO BID Qty: 180 3RF amlodipine 2.5 mg tablet 2.5 mg PO DAILY Qty: 180 3RF acetaminophen 500 mg tablet 500 mg PO QID PRN (Reason: Pain) Patient Comments: 12/14- otc unable to verify Glucos Chond Cplx Advanced 750 mg-100 mg- 125 mg-1.65 mg tablet 0 tab PO DAILY Patient Comments: 12/14- otc unable to verify pantoprazole 40 mg tablet,delayed release (DR/EC) 0 mg PO DAILY Patient Comments: 12/14- last filled 08/07 90 day supply #90 potassium chloride 20 mEq/15 mL liquid 0 meq PO BID Patient Comments: 12/14- no fill history unable to verify. Original: 20 meq po bid albuterol sulfate 90 mcg/actuation HFA aerosol inhaler 0 puff inhalation QID Patient Comments: 12/14- no fill history unable to verify. Original: 2 puff inhalation qid calcium carbonate [Tums Ultra] 400 mg calcium (1,000 mg) Tablet,Chewable 400 mg PO DIRECTED PRN (Reason: Gi Upset) Patient Comments: 12/14- otc unable to verify vitamin E 400 unit Capsule 400 unit PO QDL Patient Comments: 12/14- otc unable to verify fluticasone propionate 50 mcg/actuation [place],Suspension 0 spray INTRANASAL QAM Patient Comments: 12/14- otc/no fill history unable to verify famotidine 20 mg tablet 20 mg PO HS Hold Instructions: Resume on 05/05/23. albuterol sulfate [ProAir HFA] 90 mcg/actuation Hfa Aerosol Inhaler 2 puff INHALATION QID PRN (Reason: Shortness Of Breath Or Wheezing) Patient Comments: 12/14- no fill history unable to verify atorvastatin 40 mg tablet 40 mg PO QAM levothyroxine [Synthroid] 75 mcg tablet 75 mcg PO QAM vitamin B complex Tablet 1 tab PO QAM Patient Comments: 12/14- otc unable to verify furosemide 20 mg tablet 0 mg PO Q OTHER DAY Patient Comments: 12/14- no fill history unable to verify. original: 20 mg po q other day sodium chloride 1,000 mg tablet,soluble 0 mg PO DAILY Patient Comments: 12/14- no fill history unable to verify. original: 1000mg po daily diclofenac sodium [Voltaren Arthritis Pain] 1 % gel 0 g EXT BID Patient Comments: 12/14- otc unable to verify Discontinued ipratropium bromide 0.03 % spray,non-aerosol 0 sprays intranasal DAILY Patient Comments: 12/14- no fill history unable to verify azelastine-fluticasone 137-50 mcg/spray spray,non-aerosol 0 spray intranasal BID Patient Comments: 12/14- otc/no fill history unable to verify ondansetron HCl 8 mg tablet 8 mg PO Q8H PRN (Reason: nausea and vomiting) Discharge Orders: Discharge Order (Routine); Ordered 12/15/24 Ordered By: Paul Peralta Admission Data Admit Date/Time: 12/14/24 11:43 Attending Provider: Paul Peralta Admit Provider: Paul Peralta Primary Care Provider: Magda Taylor Other Interventions: Discharge Summary Assessment (RN) Last Done: 12/15/24 10:25 Hospital Stay Data Diagnostic Imagining Performed 12/14/24 09:01 CT head/brain wo con Stat Pending Results Patient Have Any Pending Studies at Discharge: Yes Discharge Instructions Given to Patient (Per Discharging Provider) You were admitted to [facility] for constipation resulting in urinary retention and confusion. You admitted to the [facility] for continued observation due to initial concern for possible urinary tract infection, for which there is no clinical or laboratory evidence. Symptoms leading to presentation are most likely related to constipation resulting in urinary retention and intermittent confusion, which can be seen especially in patients over the age of 65. You were treated with an initial dose of antibiotics in the emergency department empirically, however at this time there is no indication for continued antibiotics. Will continue to assess your provided urine sample for any bacterial growth and will contact you directly if there is anything concerning. Please continue to use MiraLAX 1 scoop daily adjusting by increasing or decreasing by one half capful every 3 to 4 days to maintain 1 easily passed soft bowel movement daily. Thank you for choosing [facility] as your healthcare provider. Total Time Total Time Spent Total Time Spent (In Minutes): I personally spent 40 minutes in the coordination of today's discharge including bedside counselling, physical exam, chart review, medication reconcillation Coding Level of Care Code 40227 INP/OBS DISCH >30 MIN Diagnoses Constipation by delayed colonic transit K59.01 Encopresis R15.9 Confusion with nonfocal neurological examination R41.0 Polyuria R35.89 Abdominal pain of multiple sites R10.85 Abdominal location: multiple sites Factor V Leiden D68.51
--- NOTE | 2024-12-16 06:50 | Electrocardiogram Report ---
Test Reason : Blood Pressure : */* mmHG Vent. Rate : 95 BPM Atrial Rate : 95 BPM P-R Int : 162 ms QRS Dur : 70 ms QT Int : 332 ms P-R-T Axes : 57 6 63 degrees QTcB Int : 417 ms Normal sinus rhythm Normal ECG When compared with ECG of 18-Jun-2024 12:45, No significant change was found Confirmed by Bereket Diggs ([id number]) on 12/16/2024 6:50:13 AM Referred By: REFERRED SELF Confirmed By: Bereket Diggs
== END 2024-12-15 11:05 | disposition home or self-care (01) ==
LOC: 3W 08:38 → ED 08:38 → 3W 13:35